=== PATIENT | female | born 1945 | race Caucasian/White ===

== ENCOUNTER 2016-07-03 11:57 | Inpatient (IN) | payer MEDICARE, OTHER ==
[2016-07-03] MEDS ORDERED: IPRATROPIUM-ALBUTEROL 3 ML NEB INHALATION STA (12:15)
[2016-07-03] MEDS ORDERED: methylPREDNISolone SOD SUCCI 125 MG/2 ML VIAL IV STA (12:15)
[2016-07-03] MEDS ORDERED: ACETAMINOPHEN TAB 500 MG TAB PO STA (12:16)
[2016-07-03] MEDS ORDERED: IBUPROFEN 600 MG TAB PO STA (12:16)
--- NOTE | 2016-07-03 12:19 | ED ---
General Adult HPI - General Chief complaint: Shortness of Breath Stated complaint: Asthma symptoms Time Seen by Provider: 07/03/16 12:00 Source: patient, RN notes reviewed Mode of arrival: wheelchair Limitations: no limitations - History of Present Illness Initial comments: This is a 71-year-old female who presents emergency Department complaining of difficulty breathing. Patient states she has a past medical history significant for asthma as well as sarcoidosis. Patient states she's been having difficulty breathing last few days. Patient states it got progressively worse. Patient denies any chest pain or palpitation. Patient denies abdominal pain patient denies nausea vomiting diarrhea. Patient denies headache patient denies numbness weakness. Patient denies any recent injury or trauma. Patient denies lightheadedness dizziness or near syncopal episode. Patient's main complaint is coughing and difficulty breathing. - Related Data Home Medications Medication Instructions Recorded Confirmed Metoprolol Succinate (ER) [Toprol 25 mg PO QAM 08/21/13 07/03/16 XL] Multivit with Calcium,Iron,Min 1 tab PO QAM 08/21/13 07/03/16 [Women's Daily Multivitamin] metFORMIN HCL [Glucophage] 1,000 mg PO AC-SUPPER 08/21/13 07/03/16 metFORMIN HCL [Glucophage] 500 mg PO AC-BRKFST 08/21/13 07/03/16 Vitamin B Complex 1 cap PO QAM 04/19/14 07/03/16 Insulin Aspart [NovoLOG] 18 unit SQ AC-SUPPER 04/18/15 07/03/16 Magnesium Gluconate [Magonate] 500 mg PO QAM 04/18/15 07/03/16 clonazePAM [KlonoPIN] 0.5 mg PO HS PRN 04/18/15 07/03/16 Amitriptyline HCl [Elavil] 50 mg PO HS 06/24/15 07/03/16 Aspirin 81 mg PO HS 06/24/15 07/03/16 Atorvastatin [Lipitor] 40 mg PO HS 06/24/15 07/03/16 Cholecalciferol [Vitamin D3] 2,000 unit PO QAM 06/24/15 07/03/16 Insulin Aspart [NovoLOG] 16 unit SQ AC-BRKFST 06/24/15 07/03/16 Insulin Aspart [NovoLOG] 18 unit SQ AC-LUNCH 06/24/15 07/03/16 Furosemide [Lasix] 20 mg PO BID@0800,1200 02/13/16 07/03/16 Insulin Aspart [NovoLOG] See Protocol SQ AC-TID 02/13/16 07/03/16 Insulin Glargine [Lantus] 47 unit SQ HS 02/13/16 07/03/16 Budesonide/Formoterol Fumarate 1 puff INHALATION RT-BID 03/06/16 07/03/16 [Symbicort 160-4.5 Mcg Inhaler] Ipratropium-Albuterol Nebulize 3 ml INHALATION RT-QID 04/03/16 07/03/16 [Duoneb 0.5 mg-3 mg/3 ml Soln] Pramipexole [Mirapex] 0.25 mg PO DAILY PRN 04/11/16 07/03/16 Gabapentin [Neurontin] 300 mg PO BID 07/03/16 07/03/16 Previous Rx's Medication Instructions Recorded Acetaminophen Tab [Tylenol] 500 mg PO Q6HR PRN #0 tab 02/18/16 Levofloxacin [Levaquin] 750 mg PO DAILY@1200 #7 tab 04/13/16 Allergies Allergy/AdvReac Type Severity Reaction Status Date / Time erythromycin base Allergy Unknown Rash/Hives Verified 07/03/16 12:20 [Erythromycin Base] metoclopramide HCl Allergy Unknown Rash/Hives Verified 07/03/16 12:20 [From Reglan] Sulfa (Sulfonamide Allergy Unknown Rash/Hives Verified 07/03/16 12:20 Antibiotics) Penicillins Allergy Unknown Verified 07/03/16 12:20 Review of Systems ROS Statement: Those systems with pertinent positive or pertinent negative responses have been documented in the HPI. ROS Other: All systems not noted in ROS Statement are negative. 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 Skin cancer. Last Myocardial Infarction Date:: unknown History of Any Multi-Drug Resistant Organisms: None Reported Past Surgical History: Back Surgery, Cholecystectomy, Heart Catheterization, Tubal Ligation Additional Past Surgical History / Comment(s): 05-05-15 BRONCHOSCOPY, cystoscopy 2000, laminectomy 1982,1999,2000,2002,2006, liver biopsy 2008, cataract surgery 2009, spinal fusion 2006, x2 disectomies,lithotripsy, liver bx 2008 had ercp /stent in liver, skin ca removed. 2013 implanted pain stimulator, jonah carpal tunnel, recent cough since Jan 2016, 04-05-16 BRONCHOSCOPY Past Anesthesia/Blood Transfusion Reactions: Motion Sickness Additional Past Anesthesia/Blood Transfusion Reaction / Comment(s): claustrophobia. NEVER HAD ANY BLOOD TRANSFUSIONS Past Psychological History: Anxiety, Depression Smoking Status: Never smoker Past Alcohol Use History: None Reported Past Drug Use History: None Reported - Past Family History Father History Unknown: Yes Additional Family Medical History / Comment(s): was adopted Mother History Unknown: Yes Family Medical History: Cancer Additional Family Medical History / Comment(s): breast General Exam - General Exam Comments Initial Comments: GENERAL: Patient is well-developed and well-nourished. Patient is nontoxic and well- hydrated and is in mild distress. ENT: Neck is soft and supple. No significant lymphadenopathy is noted. Oropharynx is clear. Moist mucous membranes. Neck has full range of motion without eliciting any pain. EYES: The sclera were anicteric and conjunctiva were pink and moist. Extraocular movements were intact and pupils were equal round and reactive to light. Eyelids were unremarkable. PULMONARY: Unlabored respirations. Good breath sounds bilaterally. Expiratory wheezing throughout CARDIOVASCULAR: There is a regular rate and rhythm without any murmurs gallops or rubs. ABDOMEN: Soft and nontender with normal bowel sounds. No palpable organomegaly was noted. There is no palpable pulsatile mass. SKIN: Skin is clear with no lesions or rashes and otherwise unremarkable. NEUROLOGIC: Patient is alert and oriented x3. Cranial nerves II through XII are grossly intact. Motor and sensory are also intact. Normal speech, volume and content. Symmetrical smile. MUSCULOSKELETAL: Normal extremities with adequate strength and full range of motion. No lower extremity swelling or edema. No calf tenderness. LYMPHATICS: No significant lymphadenopathy is noted PSYCHIATRIC: Normal psychiatric evaluation. Normal interpersonal interactions appears functionally intact in deals appropriately with others. No signs of depression. No signs of anxiety. Limitations: no limitations Course Vital Signs 07/03/16 07/03/16 07/03/16 12:02 12:16 12:22 Temperature 98.5 F 102.4 F H Pulse Rate 119 H 115 H Respiratory 28 H Rate Blood Pressure 169/63 O2 Sat by Pulse 93 L Oximetry 07/03/16 07/03/16 12:28 14:12 Temperature 99.9 F H Pulse Rate 116 H 108 H Respiratory 20 Rate Blood Pressure 102/58 O2 Sat by Pulse 95 Oximetry Medical Decision Making - Medical Decision Making EKG shows sinus tachycardia at 107 bpm MI interval 252 QRS is 90 QT interval 370 QTC is 493 per patient's EKG shows no ST segment elevation or depression or T-wave abnormalities are noted. Chest x-ray shows some diffuse patchiness. Patient states influenza came back positive. I started the patient on Tamiflu. Patient had a bad cough site gave her some Tessalon Perles. I went back into reevaluate the patient was neurologically were clear at this point patient looked considerably better than when she arrived. - Lab Data Result diagrams: 07/03/16 12:25 07/03/16 12:25 Lab Results 07/03/16 07/03/16 07/03/16 Range/Units 12:25 12:25 12:25 WBC 6.2 (3.8-10.6) k/uL RBC 4.57 (3.80-5.40) m/uL Hgb 13.7 (11.4-16.0) gm/dL Hct 41.8 (34.0-46.0) % MCV 91.3 (80.0-100.0) fL MCH 29.9 (25.0-35.0) pg MCHC 32.8 (31.0-37.0) g/dL RDW 14.7 (11.5-15.5) % Plt Count 92 L (150-450) k/uL Neutrophils % 84 % Lymphocytes % 7 % Monocytes % 6 % Eosinophils % 1 % Basophils % 0 % Neutrophils # 5.2 (1.3-7.7) k/uL Lymphocytes # 0.4 L (1.0-4.8) k/uL Monocytes # 0.3 (0-1.0) k/uL Eosinophils # 0.1 (0-0.7) k/uL Basophils # 0.0 (0-0.2) k/uL Manual Slide Review Performed Toxic Granulation Present PT (9.0-12.0) sec INR (<1.1) APTT (22.0-30.0) sec Sodium 136 L (137-145) mmol/L Potassium 4.3 (3.5-5.1) mmol/L Chloride 104 (98-107) mmol/L Carbon Dioxide 23 (22-30) mmol/L Anion Gap 9 mmol/L BUN 16 (7-17) mg/dL Creatinine 0.63 (0.52-1.04) mg/dL Est GFR (MDRD) Af Amer >60 (>60 ml/min/1.73 sqM) Est GFR (MDRD) Non-Af >60 (>60 ml/min/1.73 sqM) Glucose 213 H (74-99) mg/dL Calcium 8.8 (8.4-10.2) mg/dL Total Bilirubin 1.7 H (0.2-1.3) mg/dL AST 72 H (14-36) U/L ALT 51 (9-52) U/L Alkaline Phosphatase 87 (38-126) U/L Total Creatine Kinase 832 H (30-135) U/L CK-MB (CK-2) 3.2 H* (0.0-2.4) ng/mL CK-MB (CK-2) Rel Index 0.4 Troponin I <0.012 (0.000-0.034) ng/mL NT-Pro-B Natriuret Pep pg/mL Total Protein 6.4 (6.3-8.2) g/dL Albumin 3.5 (3.5-5.0) g/dL Influenza Type A RNA (Not Detectd) Influenza Type B (PCR) (Not Detectd) 07/03/16 07/03/16 07/03/16 Range/Units 12:25 12:25 12:33 WBC (3.8-10.6) k/uL RBC (3.80-5.40) m/uL Hgb (11.4-16.0) gm/dL Hct (34.0-46.0) % MCV (80.0-100.0) fL MCH (25.0-35.0) pg MCHC (31.0-37.0) g/dL RDW (11.5-15.5) % Plt Count (150-450) k/uL Neutrophils % % Lymphocytes % % Monocytes % % Eosinophils % % Basophils % % Neutrophils # (1.3-7.7) k/uL Lymphocytes # (1.0-4.8) k/uL Monocytes # (0-1.0) k/uL Eosinophils # (0-0.7) k/uL Basophils # (0-0.2) k/uL Manual Slide Review Toxic Granulation PT 12.2 H (9.0-12.0) sec INR 1.2 (<1.1) APTT 23.9 (22.0-30.0) sec Sodium (137-145) mmol/L Potassium (3.5-5.1) mmol/L Chloride (98-107) mmol/L Carbon Dioxide (22-30) mmol/L Anion Gap mmol/L BUN (7-17) mg/dL Creatinine (0.52-1.04) mg/dL Est GFR (MDRD) Af Amer (>60 ml/min/1.73 sqM) Est GFR (MDRD) Non-Af (>60 ml/min/1.73 sqM) Glucose (74-99) mg/dL Calcium (8.4-10.2) mg/dL Total Bilirubin (0.2-1.3) mg/dL AST (14-36) U/L ALT (9-52) U/L Alkaline Phosphatase (38-126) U/L Total Creatine Kinase (30-135) U/L CK-MB (CK-2) (0.0-2.4) ng/mL CK-MB (CK-2) Rel Index Troponin I (0.000-0.034) ng/mL NT-Pro-B Natriuret Pep 236 pg/mL Total Protein (6.3-8.2) g/dL Albumin (3.5-5.0) g/dL Influenza Type A RNA Detected H (Not Detectd) Influenza Type B (PCR) Not Detected (Not Detectd) Disposition Clinical Impression: Influenza, Bronchospasm Disposition: ADMITTED IP TO THIS [facility] Time of Disposition: 14:17
[2016-07-03 12:54] LABS: ALT 51 U/L (9-52); AST 72 U/L (14-36); Alkaline Phosphatase 87 U/L (38-126); Anion Gap 9 mmol/L; Blood Urea Nitrogen 16 mg/dL (7-17); Calcium 8.8 mg/dL (8.4-10.2); Carbon Dioxide 23 mmol/L (22-30); Chloride 104 mmol/L (98-107); Glucose 213 mg/dL (74-99); Non-African American GFR(MDRD) >60 (>60 ml/min/1.73 sqM); Potassium 4.3 mmol/L (3.5-5.1); Sodium 136 mmol/L (137-145); Total Bilirubin 1.7 mg/dL (0.2-1.3); Total Protein 6.4 g/dL (6.3-8.2)
--- NOTE | 2016-07-03 12:57 | XR ---
EXAMINATION TYPE: XR chest 2V DATE OF EXAM: 07/03/2016 12:51 PM COMPARISON: 04/11/2016 INDICATION: Difficulty breathing SD of asthma and COPD TECHNIQUE: Single frontal view of the chest is obtained. FINDINGS: The heart size is borderline in size. The pulmonary vasculature is prominent. There is diffuse increased lung markings. Early pulmonary edema should be considered. Exam is limited due to patient body habitus. IMPRESSION: 1. Clinical correlation recommended for early volume overload or pulmonary edema. Follow-up exams can be performed as clinically indicated.
[2016-07-03 13:01] LABS: Basophils % (A) 0 %; CH 30.5; CHCM 33.4; Creatine Kinase 832 U/L (30-135); Eosinophils # (A) 0.1 k/uL (0-0.7); Eosinophils % (A) 1 %; HCT 41.8 % (34.0-46.0); HDW 2.64; HGB 13.7 gm/dL (11.4-16.0); Luc # (Auto) 0.17; Luc % (Auto) 3; Lymphocytes # (A) 0.4 k/uL (1.0-4.8); Lymphocytes % (A) 7 %; MCH 29.9 pg (25.0-35.0); MCHC 32.8 g/dL (31.0-37.0); MCV 91.3 fL (80.0-100.0); Mean Platelet Volume 6.7; Monocytes # (A) 0.3 k/uL (0-1.0); Monocytes % (A) 6 %; Neutrophils # (A) 5.2 k/uL (1.3-7.7); Neutrophils % (A) 84 %; RBC 4.57 m/uL (3.80-5.40); RDW 14.7 % (11.5-15.5); WBC 6.2 k/uL (3.8-10.6); WBC (Perox) 6.41
[2016-07-03 13:02] LABS: INR 1.2 (<1.1); Partial Thromboplastin Time 23.9 sec (22.0-30.0); Prothrombin Time 12.2 sec (9.0-12.0)
[2016-07-03 13:14] LABS: Troponin I <0.012 ng/mL (0.000-0.034)
[2016-07-03 13:20] LABS: Creatine Kinase MB 3.2 ng/mL (0.0-2.4)
[2016-07-03 14:01] LABS: Manual Review Performed; Toxic Granulation Present
[2016-07-03] MEDS ORDERED: BENZONATATE 100 MG CAP PO STA (14:16)
[2016-07-03] MEDS ORDERED: OSELTAMIVIR 75 MG CAP PO STA (14:16)
[2016-07-03] MEDS ORDERED: IPRATROPIUM-ALBUTEROL 3 ML NEB INHALATION PRN (14:18)
[2016-07-03] MEDS ORDERED: ACETAMINOPHEN TAB 325 MG TAB PO PRN (14:20)
[2016-07-03] MEDS ORDERED: clonazePAM 0.5 MG TAB PO PRN (16:56)
[2016-07-03] MEDS ORDERED: PRAMIPEXOLE 0.25 MG TAB PO PRN (16:56)
[2016-07-03] MEDS ORDERED: ACETAMINOPHEN TAB 500 MG TAB PO PRN (16:56)
[2016-07-03 17:09] LABS: Glucose,Whole Blood 260 mg/dL (75-99)
[2016-07-03] MEDS: INSULIN LISPRO (humaLOG) 300 UNIT/3 ML VIAL SQ SCH (17:47)
[2016-07-03] MEDS: metFORMIN 500 MG TAB PO SCH (17:47)
[2016-07-03] MEDS: methylPREDNISolone SOD SUCCI 125 MG/2 ML VIAL IV SCH ×2 (17:50→23:34)
[2016-07-03] MEDS: IPRATROPIUM-ALBUTEROL 3 ML NEB INHALATION SCH (19:31)
[2016-07-03] MEDS: SYMBICORT 160-4.5 MCG INHALER INHALATION SCH (19:34)
[2016-07-03 21:08] LABS: Glucose,Whole Blood 383 mg/dL (75-99)
[2016-07-03] MEDS: INSULIN GLARGINE 100 UNIT/ML 10 ML VIAL SQ SCH (21:32)
[2016-07-03] MEDS: GABAPENTIN 300 MG CAP PO SCH (21:33)
[2016-07-03] MEDS: AMITRIPTYLINE HCL 50 MG TAB PO SCH (21:33)
[2016-07-03] MEDS: ASPIRIN 81 MG CHEW PO SCH (21:33)
[2016-07-03] MEDS: ATORVASTATIN 40 MG TAB PO SCH (21:33)
[2016-07-03] MEDS: BENZONATATE 100 MG CAP PO SCH (21:34)
[2016-07-04] MEDS: OSELTAMIVIR 75 MG CAP PO SCH ×2 (06:06→17:36)
[2016-07-04] MEDS: methylPREDNISolone SOD SUCCI 125 MG/2 ML VIAL IV SCH ×2 (06:06→11:17)
[2016-07-04] MEDS: IPRATROPIUM-ALBUTEROL 3 ML NEB INHALATION SCH ×4 (07:26→20:52)
[2016-07-04] MEDS: SYMBICORT 160-4.5 MCG INHALER INHALATION SCH ×2 (07:26→20:52)
[2016-07-04 07:33] LABS: Glucose,Whole Blood 338 mg/dL (75-99)
[2016-07-04] MEDS: METOPROLOL SUCCINATE (ER) 25 MG TAB.ER.24H PO SCH (07:47)
[2016-07-04] MEDS: GABAPENTIN 300 MG CAP PO SCH ×2 (07:48→20:43)
[2016-07-04] MEDS: FUROSEMIDE 20 MG TAB PO SCH ×2 (07:48→11:17)
[2016-07-04] MEDS: MAGNESIUM OXIDE 400 MG TAB PO SCH (07:48)
[2016-07-04] MEDS: BENZONATATE 100 MG CAP PO SCH ×3 (07:48→21:37)
[2016-07-04] MEDS: metFORMIN 500 MG TAB PO SCH ×2 (07:48→17:35)
[2016-07-04] MEDS: INSULIN LISPRO (humaLOG) 300 UNIT/3 ML VIAL SQ SCH ×7 (07:49→21:37)
[2016-07-04] MEDS: B COMPLEX-VIT C-VIT E-ZINC 1 EACH TAB PO SCH (11:16)
[2016-07-04] MEDS: MULTIVITAMINS, THERA 1 EACH TAB PO SCH (11:16)
[2016-07-04] MEDS: CHOLECALCIFEROL 1,000 UNIT TAB PO SCH (11:16)
[2016-07-04] MEDS ORDERED: LEVOFLOXACIN 750 MG TAB PO SCH (12:00)
[2016-07-04 12:15] LABS: Hemoglobin A1C 8.1 % (4.2-6.1)
[2016-07-04 12:23] LABS: Glucose,Whole Blood 443 mg/dL (75-99)
[2016-07-04] MEDS: ENOXAPARIN 40 MG/0.4 ML SYRINGE SQ SCH (12:25)
--- NOTE | 2016-07-04 12:50 | HP ---
DATE OF ADMISSION: 07/03/2016 PRESENTING COMPLAINT: Cough. HISTORY OF PRESENTING COMPLAINT: This is a pleasant 71-year-old patient of Dr. Abel with rather extensive medical history. Patient was last here in the hospital in March last year and patient's chronic stable medical conditions include moderate aortic stenosis, diabetes mellitus type 2, GERD, hyperlipidemia, hypertension, osteoarthritis, hypothyroidism, also has got tracheobronchomalacia, sarcoidosis, restless leg syndrome, and also got diastolic dysfunction. The patient saw Dr. Bernstein recently for respiratory type symptoms including cough, short of breath. Given a course of antibiotics, steroids and completed. ( ). Bouts of coughing, no phlegm, shortness of breath. Did spike a fever of 102.4. Not feeling well, tired, rundown, some wheezing. Came in. Patient came back positive for influenza A, started on Tamiflu, admitted for the same. REVIEW OF SYSTEMS: CONSTITUTIONAL: Tired. HEENT: None. RESPIRATORY: As above. CARDIOVASCULAR: None, some edema. GASTROINTESTINAL: None. GENITOURINARY: None. MUSCULOSKELETAL: Aches and pains in the joints. DERMATOLOGIC: None. HEMATOLOGIC: None. LYMPHATIC: None. PSYCHIATRY: None. NEUROLOGICAL: None. 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 PAST SURGICAL HISTORY: Back surgery, cholecystectomy, cardiac catheterization, several bronchoscopies, laminectomy, liver biopsy, also had ERCP with stent to liver, skin cancer removed, bilateral carpal tunnel done x2, heel spurs. PSYCH HISTORY: Anxiety, depression. Patient is . actually admitted to the hospital under Dr. Avendano. No smoking, no alcohol. Family history of breast cancer. HOME MEDICATIONS: 1. Toprol XL 25 mg daily. 2. NovoLog 16 units with breakfast, 18 with lunch, 18 with supper. 3. Klonopin 0.5 mg p.o. q.h.s. p.r.n. 4. Glucophage 500 mg with breakfast, 1000 mg at supper. 5. Vitamin B complex 1 capsule p.o. daily. 6. Mirapex 0.25 mg p.o. daily p.r.n. 7. Woman's multivitamin 1 tablet p.o. daily. 8. Magnesium 500 mg p.o. daily. 9. Levaquin 750 mg p.o. daily. 10. DuoNeb q.i.d. 11. Lantus 47 units subcu q.h.s. 12. Neurontin 300 mg b.i.d. 13. Lasix 20 mg b.i.d. 14. Vitamin D3, 2000 units p.o. daily. 15. Symbicort 160/4.5 one puff b.i.d. 16. Lipitor 40 mg q.h.s. 17. Aspirin 81 mg q.h.s. 18. Elavil 50 mg q.h.s. Allergies to ERYTHROMYCIN REGLAN, SULFA, PENICILLIN. ON EXAMINATION: VITAL SIGNS ON PRESENTATION: Temperature 102.4, pulse 115, respiration 28, blood pressure 169/63, pulse ox 93% on room air. GENERAL APPEARANCE: Obese; BMI 42.4. Sitting up, tired appearing. EYES: Pupils equal. Conjunctivae normal. HEENT: External appearance of nose and ears normal. Oral cavity normal. NECK: JVD not raised. Mass not palpable. RESPIRATORY: Effort normal. LUNGS: Some expiratory wheezing. CARDIOVASCULAR: First and second sounds normal. No edema. ABDOMEN: Soft, nontender. Liver and spleen not palpable. LYMPHATIC: No lymph nodes palpable in the neck or axillae. PSYCHIATRY: Alert and oriented x3. Mood and affect normal. NEUROLOGICAL: Pupils equal. Cranial nerves grossly intact. Power and sensation grossly intact. MUSCULOSKELETAL: Evidence of osteoarthritis of multiple joints. INVESTIGATIONS: White count 6.2, hemoglobin 13.7, platelets 92. Potassium 4.3. BUN and creatinine normal. Accu-Cheks are noted. Influenza type A RNA is positive. Chest x-ray under exposed, some infiltrates in the bases. ASSESSMENT: 1. Acute influenza A type A pneumonitis, bilateral. 2. Moderate aortic stenosis, nonrheumatic. 3. Acute exacerbation of moderate persistent asthma. 4. Diabetes mellitus type 2, chronically on insulin. 5. Gastroesophageal reflux disease. 6. Hyperlipidemia. 7. Essential hypertension. 8. Primary osteoarthritis of multiple joints. 9. Morbid obesity. Body mass index more than 40. 10. Hypothyroidism. 11. Sarcoidosis. 12. Chronic tracheobronchomalacia. 13. Possible Sjogren syndrome. 14. Nephrolithiasis. 15. Restless leg syndrome 16. Chronic inflammatory demyelinating polyneuropathy, history of. 17. Nonalcoholic steatohepatitis. 18. Colonic diverticulosis. PLAN: Patient's home medications are resumed. Patient was put on IV Solu-Medrol, Tamiflu, nebulized bronchodilators. Care was discussed with the patient. Will give Lovenox for DVT prophylaxis. Patient likely will need 2 days of inpatient hospital stay. Given the steroids, Accu-Cheks will be closely followed.
--- NOTE | 2016-07-04 16:16 | P.CNPUL ---
History of Present Illness Consult date: 07/04/16 Reason for consult: cough History of present illness: 71-year-old female patient who presented to the emergency department yesterday because of increased cough and shortness of breath. The patient started having symptoms approximately 3 days ago. In fact her has been admitted for an acute COPD exacerbation and acute influenza tracheobronchitis. The patient started having increased cough and chest congestion for which she had contacted Dr. Bernstein and she was given a course of antibiotics which she thinks was amoxicillin and a prednisone taper. Nevertheless the condition did not improve and she came into the emergency department and she was admitted for increased cough and chest congestion and ongoing respiratory complaints. She did spike a fever of 102.4. The hospital. She was feeling tired and rundown. No nausea. No vomiting. No change in mental status. Influenza A screen was positive and the patient was started on Tamiflu. She was also started accommodation bronchodilators and systemic steroids. She is already feeling better and she is much improved. She developed steroid-induced hyperglycemia based on that I took her off the IV Solu-Medrol and started on a prednisone burst taper. She is afebrile for now. She has regained her energy back. She has no specific complaints. 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, non alcoholic steatohepatitis, nephrolithiasis, osteoporosis,sciatica, restless leg syndrome, anemia, hx of TIA 2, thyroid nodule, diverticulosis, skin cancer, "double vison with distance for past 6 months pt has been evaluated by ophthalmology, tracheobronchomalacia, diabetes mellitus type 2, hypertension, hyperlipidemia, hypothyroidism, restless leg syndrome, CHF with diastolic dysfunction, moderate degree of aortic stenosis Last Myocardial Infarction Date:: unknown History of Any Multi-Drug Resistant Organisms: None Reported Past Surgical History: Back Surgery, Cholecystectomy, Heart Catheterization, Tubal Ligation Additional Past Surgical History / Comment(s): several bronchoscopies, cystoscopy 2000, laminectomy 1982,1999,2000,2002,2006 but total of 13 back sx including implanted pain stimulator, liver biopsy 2008, cataract surgery 2009, lithotripsy, liver bx 2008 had ercp /stent in liver, skin ca removed. jonah carpal tunnel done x2,heel spurs rt heel . thyroid bx(nodule) Past Anesthesia/Blood Transfusion Reactions: Motion Sickness Additional Past Anesthesia/Blood Transfusion Reaction / Comment(s): claustrophobia. NEVER HAD ANY BLOOD TRANSFUSIONS Past Psychological History: Anxiety, Depression Additional Psychological History / Comment(s): pt lives with and 1 dog in one level home 2 steps into home. has cane/walker, shower chair, nebulizer at home. currently no outside services. Smoking Status: Never smoker Past Alcohol Use History: None Reported Past Drug Use History: None Reported - Past Family History Father History Unknown: Yes Additional Family Medical History / Comment(s): was adopted Mother History Unknown: Yes Family Medical History: Cancer Additional Family Medical History / Comment(s): breast Medications and Allergies Home Medications Medication Instructions Recorded Confirmed Type Metoprolol Succinate (ER) [Toprol 25 mg PO QAM 08/21/13 07/03/16 History XL] Multivit with Calcium,Iron,Min 1 tab PO QAM 08/21/13 07/03/16 History [Women's Daily Multivitamin] metFORMIN HCL [Glucophage] 1,000 mg PO AC-SUPPER 08/21/13 07/03/16 History metFORMIN HCL [Glucophage] 500 mg PO AC-BRKFST 08/21/13 07/03/16 History Vitamin B Complex 1 cap PO QAM 04/19/14 07/03/16 History Insulin Aspart [NovoLOG] 18 unit SQ AC-SUPPER 04/18/15 07/03/16 History Magnesium Gluconate [Magonate] 500 mg PO QAM 04/18/15 07/03/16 History clonazePAM [KlonoPIN] 0.5 mg PO HS PRN 04/18/15 07/03/16 History Amitriptyline HCl [Elavil] 50 mg PO HS 06/24/15 07/03/16 History Aspirin 81 mg PO HS 06/24/15 07/03/16 History Atorvastatin [Lipitor] 40 mg PO HS 06/24/15 07/03/16 History Cholecalciferol [Vitamin D3] 2,000 unit PO QAM 06/24/15 07/03/16 History Insulin Aspart [NovoLOG] 16 unit SQ AC-BRKFST 06/24/15 07/03/16 History Insulin Aspart [NovoLOG] 18 unit SQ AC-LUNCH 06/24/15 07/03/16 History Furosemide [Lasix] 20 mg PO BID@0800,1200 02/13/16 07/03/16 History Insulin Aspart [NovoLOG] See Protocol SQ AC-TID 02/13/16 07/03/16 History Insulin Glargine [Lantus] 47 unit SQ HS 02/13/16 07/03/16 History Budesonide/Formoterol Fumarate 1 puff INHALATION RT-BID 03/06/16 07/03/16 History [Symbicort 160-4.5 Mcg Inhaler] Ipratropium-Albuterol Nebulize 3 ml INHALATION RT-QID 04/03/16 07/03/16 History [Duoneb 0.5 mg-3 mg/3 ml Soln] Pramipexole [Mirapex] 0.25 mg PO DAILY PRN 04/11/16 07/03/16 History Gabapentin [Neurontin] 300 mg PO BID 07/03/16 07/03/16 History Allergies Allergy/AdvReac Type Severity Reaction Status Date / Time erythromycin base Allergy Unknown Rash/Hives Verified 07/03/16 12:20 [Erythromycin Base] metoclopramide HCl Allergy Unknown Rash/Hives Verified 07/03/16 12:20 [From Reglan] Sulfa (Sulfonamide Allergy Unknown Rash/Hives Verified 07/03/16 12:20 Antibiotics) Penicillins Allergy Unknown Verified 07/03/16 12:20 Physical Exam Vitals: Vital Signs Temp Pulse Pulse Resp BP Pulse Ox 07/04/16 15:56 102 H 07/04/16 15:44 100 07/04/16 15:00 97.7 F 102 H 18 106/73 94 L 07/04/16 11:28 104 H 07/04/16 11:17 100 07/04/16 07:37 104 H 07/04/16 07:26 100 07/04/16 07:00 97 F L 101 H 18 127/69 97 07/03/16 23:00 97.4 F L 65 16 126/67 97 07/03/16 19:44 104 H 07/03/16 19:34 104 H 07/03/16 17:00 104 H 18 Intake and Output 07/04/16 07/04/16 07/04/16 06:59 14:59 22:59 Other: Voiding Method Toilet Toilet # Voids 1 3 Head exam was generally normal. There was no scleral icterus or corneal arcus. Mucous membranes were moist.Neck was supple and without jugular venous distension, thyromegaly, or carotid bruits. Carotids were easily palpable bilaterally. There was no adenopathy. Lung sounds are diminished bilaterally along with some few scattered expiratory wheeze.Cardiac exam revealed the PMI to be normally situated and sized. The rhythm was regular and no extrasystoles were noted during several minutes of auscultation. The first and second heart sounds were normal and physiologic splitting of the second heart sound was noted. There were no murmurs, rubs, clicks, or gallops. Abdomen is obese soft nontender and the organs cannot be accurately palpated.Examination of the extremities revealed easily palpable radial, femoral and pedal pulses. There was no cyanosis, clubbing or edema. Results - Laboratory Findings CBC and BMP: 07/03/16 12:25 07/03/16 12:25 PT/INR, D-dimer PT 12.2 sec (9.0-12.0) H 07/03/16 12:25 INR 1.2 (<1.1) 07/03/16 12:25 Abnormal lab findings: Abnormal Labs 07/03/16 07/03/16 07/04/16 17:07 20:57 07:31 POC Glucose (mg/dL) 260 H 383 H 338 H 07/04/16 12:21 POC Glucose (mg/dL) 443 H - Diagnostic Findings Chest x-ray: image reviewed Assessment and Plan Plan: Assessment 1 acute influenza tracheal bronchitis with secondary cough and shortness of breath, improving 2 moderate persistent bronchial asthma 3 moderate degree of aortic stenosis, nondramatic 4 diabetes mellitus type 2 maintained on insulin for blood sugar control 5 tracheobronchomalacia 6 obesity 7 hypertension 8 hyperlipidemia 9 hypothyroidism 10 history of sarcoidosis 11 history of Sjogren's disease 12 restless leg syndrome 13 nephrolithiasis Plan Continue Tamiflu. Continue the bronchodilators. Stopped IV Solu-Medrol and put the patient prednisone burst taper. A similar discharge in the next 24 hours. Keep the patient meanwhile and droplet isolation. Outpatient medication will be ordered resume. The patient is receiving Tessalon Perles for cough. Monitor the blood sugars. Sliding scale insulin for blood sugar control. We should be able to avoid insulin drip as the patient will be taken off IV Solu Medrol.
[2016-07-04] MEDS ORDERED: methylPREDNISolone SOD SUCCI 40 MG/ML 1 ML VIAL IV SCH (17:00)
[2016-07-04 17:04] LABS: Glucose,Whole Blood 491 mg/dL (75-99)
[2016-07-04] MEDS ORDERED: INSULIN LISPRO (humaLOG) 300 UNIT/3 ML VIAL SQ ONE (17:17)
[2016-07-04] MEDS: ATORVASTATIN 40 MG TAB PO SCH (20:43)
[2016-07-04] MEDS: ASPIRIN 81 MG CHEW PO SCH (20:43)
[2016-07-04] MEDS: AMITRIPTYLINE HCL 50 MG TAB PO SCH (20:43)
[2016-07-04 21:31] LABS: Glucose,Whole Blood 329 mg/dL (75-99)
[2016-07-04] MEDS: INSULIN GLARGINE 100 UNIT/ML 10 ML VIAL SQ SCH (21:37)
[2016-07-05] MEDS: OSELTAMIVIR 75 MG CAP PO SCH ×2 (06:20→17:27)
[2016-07-05 07:42] LABS: Glucose,Whole Blood 211 mg/dL (75-99)
[2016-07-05 07:48] VITALS: TEMP 97
[2016-07-05] MEDS: INSULIN LISPRO (humaLOG) 300 UNIT/3 ML VIAL SQ SCH ×6 (07:56→17:27)
[2016-07-05] MEDS: ENOXAPARIN 40 MG/0.4 ML SYRINGE SQ SCH (07:58)
[2016-07-05] MEDS: BENZONATATE 100 MG CAP PO SCH ×2 (07:58→15:07)
[2016-07-05] MEDS: GABAPENTIN 300 MG CAP PO SCH (07:58)
[2016-07-05] MEDS: FUROSEMIDE 20 MG TAB PO SCH ×2 (07:58→12:27)
[2016-07-05] MEDS: metFORMIN 500 MG TAB PO SCH ×2 (07:59→17:27)
[2016-07-05] MEDS: MAGNESIUM OXIDE 400 MG TAB PO SCH (07:59)
[2016-07-05] MEDS: METOPROLOL SUCCINATE (ER) 25 MG TAB.ER.24H PO SCH (08:00)
[2016-07-05] MEDS: SYMBICORT 160-4.5 MCG INHALER INHALATION SCH (08:22)
[2016-07-05] MEDS: IPRATROPIUM-ALBUTEROL 3 ML NEB INHALATION SCH ×3 (08:22→15:44)
[2016-07-05] MEDS ORDERED: predniSONE 10 MG TAB PO SCH (09:00)
[2016-07-05 11:56] LABS: Glucose,Whole Blood 285 mg/dL (75-99)
[2016-07-05] MEDS: MULTIVITAMINS, THERA 1 EACH TAB PO SCH (12:27)
[2016-07-05] MEDS: B COMPLEX-VIT C-VIT E-ZINC 1 EACH TAB PO SCH (12:27)
[2016-07-05] MEDS: CHOLECALCIFEROL 1,000 UNIT TAB PO SCH (12:27)
[2016-07-05 13:44] VITALS: PULSE 102
[2016-07-05 15:28] VITALS: BP 124/56; RESP 20
--- NOTE | 2016-07-05 15:33 | P.PN ---
Subjective Principal diagnosis: COPD exacerbation 71-year-old female patient who presented to the emergency department yesterday because of increased cough and shortness of breath. The patient started having symptoms approximately 3 days ago. In fact her has been admitted for an acute COPD exacerbation and acute influenza tracheobronchitis. The patient started having increased cough and chest congestion for which she had contacted Dr. Bernstein and she was given a course of antibiotics which she thinks was amoxicillin and a prednisone taper. Nevertheless the condition did not improve and she came into the emergency department and she was admitted for increased cough and chest congestion and ongoing respiratory complaints. She did spike a fever of 102.4. The hospital. She was feeling tired and rundown. No nausea. No vomiting. No change in mental status. Influenza A screen was positive and the patient was started on Tamiflu. She was also started accommodation bronchodilators and systemic steroids. She is already feeling better and she is much improved. She developed steroid-induced hyperglycemia based on that I took her off the IV Solu-Medrol and started on a prednisone burst taper. She is afebrile for now. She has regained her energy back. She has no specific complaints. The patient was seen again today 07/05/2016 in follow-up on the regular medical floor. She is awake and alert in no acute distress. She is better today as compared to yesterday. She does have some end expiratory wheezing and dyspnea with exertion but nearly back to her baseline. She is anxious to go home. Objective - Vital Signs Vital signs: Vital Signs Temp 97.0 F L 07/05/16 15:00 Pulse 102 H 07/05/16 15:00 Resp 20 07/05/16 15:00 BP 124/56 07/05/16 15:00 Pulse Ox 97 07/05/16 15:00 Intake & Output 07/04/16 07/05/16 07/05/16 18:59 06:59 18:59 Intake Total 300 Balance 300 Intake: Oral 300 Other: Voiding Method Toilet Toilet # Voids 5 2 3 - Exam Head exam was generally normal. There was no scleral icterus or corneal arcus. Mucous membranes were moist.Neck was supple and without jugular venous distension, thyromegaly, or carotid bruits. Carotids were easily palpable bilaterally. There was no adenopathy. Lung sounds are diminished bilaterally along with some few scattered expiratory wheeze.Cardiac exam revealed the PMI to be normally situated and sized. The rhythm was regular and no extrasystoles were noted during several minutes of auscultation. The first and second heart sounds were normal and physiologic splitting of the second heart sound was noted. There were no murmurs, rubs, clicks, or gallops. Abdomen is obese soft nontender and the organs cannot be accurately palpated.Examination of the extremities revealed easily palpable radial, femoral and pedal pulses. There was no cyanosis, clubbing or edema. - Labs CBC & Chem 7: 07/03/16 12:25 07/03/16 12:25 Labs: Abnormal Lab Results - Last 24 Hours (Table) 07/04/16 07/04/16 07/05/16 Range/Units 17:02 21:21 07:38 POC Glucose (mg/dL) 491 H 329 H 211 H (75-99) mg/dL 07/05/16 Range/Units 11:52 POC Glucose (mg/dL) 285 H (75-99) mg/dL Assessment and Plan Plan: Assessment 1 acute influenza tracheal bronchitis with secondary cough and shortness of breath, improving 2 moderate persistent bronchial asthma 3 moderate degree of aortic stenosis, nondramatic 4 diabetes mellitus type 2 maintained on insulin for blood sugar control 5 tracheobronchomalacia 6 obesity 7 hypertension 8 hyperlipidemia 9 hypothyroidism 10 history of sarcoidosis 11 history of Sjogren's disease 12 restless leg syndrome 13 nephrolithiasis Plan The patient was seen again and evaluated by Dr. Ramirez. She is stable from the pulmonary standpoint and could be discharged home. She'll continue on a prednisone taper. Continue Tamiflu to complete. Continue empiric antibiotics. She'll be seen in our office in 1 week's time. We'll repeat a chest x-ray then. She is encouraged however to call sooner with any recurrence of symptoms or any other questions or concerns.
[2016-07-05 17:17] LABS: Glucose,Whole Blood 219 mg/dL (75-99)
--- NOTE | 2016-07-07 13:44 | DS ---
DATE OF ADMISSION: 07/03/2016 DATE OF DISCHARGE: 07/05/2016 FINAL DIAGNOSES: 1. Acute influenza A, type A pneumonitis, bilateral, present on admission. 2. Moderate aortic stenosis, nonrheumatic. 3. Acute exacerbation of moderate persistent asthma, present at admission. 4. Diabetes mellitus type 2, chronically on insulin. 5. Gastroesophageal reflux disease. 6. Hyperlipidemia. 7. Essential hypertension. 8. Primary osteoarthritis of multiple joints, bilateral. 9. Moderate obesity, body mass index of more than 40. 10. Hypothyroidism. 11. Sarcoidosis. 12. Chronic tracheobronchomalacia. 13. Possible Sj?gren's syndrome. 14. Nephrolithiasis. 15. Restless leg syndrome. 16. Chronic inflammatory demyelinating polyneuropathy, history of. 17. Nonalcoholic steatohepatitis. 18. Colonic diverticulosis. HOSPITAL COURSE: This patient presented with severe bouts of coughing after being treated as an outpatient and worsening, found to have acute influenza A, put on Tamiflu, steroids and antibiotics to which she responded really well, doing much better the time of discharge. CONSULTATION: Dr. Ramirez. On exam, LUNGS: Improved air entry. CARDIOVASCULAR: First and second seconds normal. Alert and oriented x3. Patient's blood cultures were negative. DISCHARGE MEDICATIONS: 1. Toprol-XL 25 mg a day. 2. Woman's daily multivitamin 1 tablet p.o. daily. 3. Glucophage 1000 mg at supper, 500 mg with breakfast. 4. Vitamin B complex 1 capsule p.o. daily. 5. NovoLog 18 units subcu a.c. supper. 6. Magnesium 500 mg p.o. daily. 7. Klonopin 0.5 mg p.o. q.h.s. p.r.n. 8. Elavil 50 mg p.o. q.h.s. 9. Aspirin 81 mg p.o. q.h.s. 10. Lipitor 40 mg p.o. q.h.s. 11. Vitamin D3, 2000 units ( ) in the morning. 12. NovoLog 16 units with breakfast, 18 units at lunch. 13. Lasix 20 mg b.i.d. 14. Lantus 47 units subcu q.h.s. 15. Tylenol 5 mg every 6 hours p.r.n. 16. Symbicort 160/4.5, 1 puff b.i.d. 17. DuoNeb q.i.d. 18. Mirapex 0.25 mg p.o. daily p.r.n. 19. Neurontin 300 mg p.o. b.i.d. 20. Tamiflu 75 mg q.12, 6 capsules. 21. Prednisone taper. 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 Follow up with Dr. Abel in 3 days. Discharge planning more than 35 minutes.
== END 2016-07-05 18:11 | disposition home or self-care (01) | DRG 194 ==
LOC: EC 11:57 → 4MS4W 14:18
PROVIDERS: ADMIT Hospitalist; ATTEND Hospitalist
DX: J10.00 Influenza due to other identified influenza virus with unspecified type of pneumonia (principal); J45.41 Moderate persistent asthma with (acute) exacerbation; G37.3 Acute transverse myelitis in demyelinating disease of central nervous system; J44.0 Chronic obstructive pulmonary disease with (acute) lower respiratory infection; E11.65 Type 2 diabetes mellitus with hyperglycemia; I11.0 Hypertensive heart disease with heart failure; I50.32 Chronic diastolic (congestive) heart failure; G61.81 Chronic inflammatory demyelinating polyneuritis; J44.1 Chronic obstructive pulmonary disease with (acute) exacerbation; Z68.41 Body mass index [BMI] 40.0-44.9, adult; M35.00 Sjogren syndrome, unspecified; E66.01 Morbid (severe) obesity due to excess calories; J39.8 Other specified diseases of upper respiratory tract; K75.81 Nonalcoholic steatohepatitis (NASH); I35.0 Nonrheumatic aortic (valve) stenosis; K21.9 Gastro-esophageal reflux disease without esophagitis; E03.9 Hypothyroidism, unspecified; E78.5 Hyperlipidemia, unspecified; M19.91 Primary osteoarthritis, unspecified site; D86.9 Sarcoidosis, unspecified; G25.81 Restless legs syndrome; I25.10 Atherosclerotic heart disease of native coronary artery without angina pectoris; F40.240 Claustrophobia; K57.90 Diverticulosis of intestine, part unspecified, without perforation or abscess without bleeding; I25.2 Old myocardial infarction; E04.1 Nontoxic single thyroid nodule; F32.9 Major depressive disorder, single episode, unspecified; K57.30 Diverticulosis of large intestine without perforation or abscess without bleeding; M81.0 Age-related osteoporosis without current pathological fracture; N20.0 Calculus of kidney; M54.30 Sciatica, unspecified side; T38.0X5A Adverse effect of glucocorticoids and synthetic analogues, initial encounter; Z86.73 Personal history of transient ischemic attack (TIA), and cerebral infarction without residual deficits; Z85.828 Personal history of other malignant neoplasm of skin; Z87.01 Personal history of pneumonia (recurrent); Z87.442 Personal history of urinary calculi; Z88.0 Allergy status to penicillin; Z88.2 Allergy status to sulfonamides; Z88.8 Allergy status to other drugs, medicaments and biological substances; Z98.1 Arthrodesis status; Z79.84 Long term (current) use of oral hypoglycemic drugs; Z79.82 Long term (current) use of aspirin; Z79.4 Long term (current) use of insulin; Z79.51 Long term (current) use of inhaled steroids; Z79.899 Other long term (current) drug therapy
CPT/HCPCS: 36415; 71020; 80053; 82550; 82553; 83036; 83880; 84484; 85025; 85610; 85730; 87040; 87502; 93005; 94640; 96374; 99285

== ENCOUNTER → 2016-08-20 | Outpatient (CLI) | payer MEDICARE, OTHER ==
--- NOTE | 2016-08-20 14:17 | US ---
EXAMINATION TYPE: US venous doppler duplex LE BI DATE OF EXAM: 08/20/2016 2:08 PM COMPARISON: US CLINICAL HISTORY: Localized Edema R60.0. Bilateral cellulitis, obese patient SIDE PERFORMED: Bilateral TECHNIQUE: The lower extremity deep venous system is examined utilizing real time linear array sonog song with graded compression, doppler sonography and color-flow sonography. VESSELS IMAGED: External Iliac Vein (EIV) Common Femoral Vein Deep Femoral Vein Greater Saphenous Vein * Femoral Vein Popliteal Vein Small Saphenous Vein * Proximal Calf Veins (* superficial vessels) Right Leg: Appears negative for DVT Left Leg: Appears negative for DVT IMPRESSION: No evidence for a right lower extremity DVT.
== END | disposition home or self-care (01) ==
LOC: RADUSWWP 13:30
PROVIDERS: ATTEND Family Medicine
DX: R60.0 Localized edema (principal)
CPT/HCPCS: 93970

== ENCOUNTER → 2016-08-27 | Outpatient (CLI) | payer MEDICARE, OTHER ==
--- NOTE | 2016-08-27 17:02 | XR ---
2 view chest x-ray HISTORY: Low back pain 2 views of the chest correlated to prior exam March Extensive postsurgical change, thoracic cord stimulator and scoliosis again noted status post posteri or fusion at L1-S1. Bone mineralization is reduced. This may limit sensitivity. Side screws present a t L2-3 with bracket as on prior exam. Loss of disc height at the intervertebral levels is noted. Ther e are vascular calcifications. IMPRESSION: Stable findings. Postop change, scoliosis, degenerative disc disease and osteoporosis. Po st instrumentation changes show a similar appearance.
== END | disposition home or self-care (01) ==
LOC: RADXRMAIN 15:54
PROVIDERS: ATTEND Psychiatry & Neurology Neurology
DX: M41.9 Scoliosis, unspecified (principal); M51.36 Other intervertebral disc degeneration, lumbar region; M81.0 Age-related osteoporosis without current pathological fracture; Z98.1 Arthrodesis status
CPT/HCPCS: 72100

== ENCOUNTER → 2016-10-02 | Outpatient (CLI) | payer MEDICARE, OTHER ==
--- NOTE | 2016-10-02 17:52 | CT ---
EXAMINATION TYPE: CT lumbar spine wo con DATE OF EXAM: 10/02/2016 3:13 PM COMPARISON: 08/27/2016 radiographs HISTORY: Severe low back pain for [address] DLP: 2213.9 mGycm. Automated exposure control for dose reduction was used. TECHNIQUE: Unenhanced CT of the lumbar spine was performed. Bone and soft tissue window settings are submitted as well as coronal and sagittal reconstructions. FINDINGS: The lumbar spinal hardware is intact and without periprosthesis lucencies. There is 9 mm an terolisthesis of L4 upon L5, this appears similar to the prior study. There is no fracture, and no paravertebral soft tissue abnormalities. There are no focal bone lesions . The bilateral bone fusion masses appear intact.The psoas musculature are symmetric and normal. The dorsal spinal musculature is unremarkable. There are no definite epidural defects. The orthopedic hardware provides metallic beam hardening jossie fact which obscures visualization, but multiplanar reconstructions are negative for definite epidural defects. IMPRESSION: NO ACUTE/SUBACUTE PROCESS.
== END | disposition home or self-care (01) ==
LOC: RADCTMAIN 14:57
PROVIDERS: ATTEND Psychiatry & Neurology Neurology
DX: M54.5 Low back pain (principal)
CPT/HCPCS: 72131

== ENCOUNTER 2016-10-18 20:47 | Inpatient (IN) | payer MEDICARE, OTHER ==
[2016-10-18] MEDS ORDERED: ONDANSETRON 4 MG/2 ML VIAL IVP STA (21:44)
[2016-10-18] MEDS ORDERED: MORPHINE SULFATE 4 MG/ML SYRINGE IVP STA (21:45)
--- NOTE | 2016-10-18 21:45 | ED ---
General Adult HPI - General Chief complaint: Altered Mental Status Stated complaint: Altered Mental Status Time Seen by Provider: 10/18/16 21:16 Source: patient, family, RN notes reviewed Mode of arrival: wheelchair Limitations: no limitations - History of Present Illness Initial comments: Patient is a 71-year-old female presents to the emergency room for evaluation of confusion. Patient states she woke up this morning feeling confused. Patient states she's not sure if she took all of her medications today or not. Patient states that she did vomit today. Patient states she hasn't eaten anything today. Patient states she has a history of diabetes. Patient states she takes insulin. Patient also states she has a history of sarcoidosis. Patient also states she has history of chronic low back pain. Patient denies any known fevers. Patient denies headache or dizziness. Patient denies chest pain or shortness of breath. Patient states she's been developing slight burning during urination about 3 days ago. Patient also states she's been nauseous over the past week. Patient states she's only been vomiting starting today. Patient denies abdominal pain. Patient denies constipation or diarrhea. Patient denies any recent changes in dosages of medications. Patient does states she was started on baclofen about a week ago. - Related Data Home Medications Medication Instructions Recorded Confirmed Metoprolol Succinate (ER) [Toprol 25 mg PO BID 08/21/13 10/18/16 XL] Multivit with Calcium,Iron,Min 1 tab PO QAM 08/21/13 10/18/16 [Women's Daily Multivitamin] metFORMIN HCL [Glucophage] 1,000 mg PO AC-SUPPER 08/21/13 10/18/16 metFORMIN HCL [Glucophage] 500 mg PO AC-BRKFST 08/21/13 10/18/16 Insulin Aspart [NovoLOG] 18 unit SQ AC-SUPPER 04/18/15 10/18/16 Magnesium Gluconate [Magonate] 500 mg PO QAM 04/18/15 10/18/16 clonazePAM [KlonoPIN] 0.5 - 1 mg PO HS PRN 04/18/15 10/18/16 Amitriptyline HCl [Elavil] 50 mg PO HS 06/24/15 10/18/16 Aspirin 81 mg PO QAM 06/24/15 10/18/16 Atorvastatin [Lipitor] 40 mg PO HS 06/24/15 10/18/16 Cholecalciferol [Vitamin D3] 1,000 unit PO QAM 06/24/15 10/18/16 Insulin Aspart [NovoLOG] 16 unit SQ AC-BRKFST 06/24/15 10/18/16 Insulin Aspart [NovoLOG] 18 unit SQ AC-LUNCH 06/24/15 10/18/16 Furosemide [Lasix] 40 mg PO BID@0800,1200 02/13/16 10/18/16 Insulin Glargine [Lantus] 47 unit SQ AC-LUNCH 02/13/16 10/18/16 Ipratropium-Albuterol Nebulize 3 ml INHALATION RT-QID 04/03/16 10/18/16 [Duoneb 0.5 mg-3 mg/3 ml Soln] Gabapentin [Neurontin] 300 mg PO BID 07/03/16 10/18/16 Baclofen [Lioresal] 20 mg PO HS 10/18/16 10/18/16 Spironolactone [Aldactone] 25 mg PO QAM 10/18/16 10/18/16 Triamcinolone Acetonide 1 applic TOPICAL BID 10/18/16 10/18/16 [Triamcinolone Acetonide 0.025%] Vitamin B Complex W/ Vitamin C 1 tab PO QAM 10/18/16 10/18/16 predniSONE 5 mg PO DAILY 10/18/16 10/18/16 Allergies Allergy/AdvReac Type Severity Reaction Status Date / Time erythromycin base Allergy Unknown Rash/Hives Verified 10/18/16 21:10 [Erythromycin Base] metoclopramide HCl Allergy Unknown Rash/Hives Verified 10/18/16 21:10 [From Reglan] Sulfa (Sulfonamide Allergy Unknown Rash/Hives Verified 10/18/16 21:10 Antibiotics) Penicillins Allergy Unknown Verified 10/18/16 21:10 Review of Systems ROS Statement: Those systems with pertinent positive or pertinent negative responses have been documented in the HPI. ROS Other: All systems not noted in ROS Statement are negative. 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, non alcoholic steatohepatitis, nephrolithiasis, osteoporosis,sciatica, restless leg syndrome, anemia, hx of TIA 2, thyroid nodule, diverticulosis, skin cancer, "double vison with distance for past 6 months pt has been evaluated by ophthalmology, tracheobronchomalacia, diabetes mellitus type 2, hypertension, hyperlipidemia, hypothyroidism, restless leg syndrome, CHF with diastolic dysfunction, moderate degree of aortic stenosis Last Myocardial Infarction Date:: unknown History of Any Multi-Drug Resistant Organisms: None Reported Past Surgical History: Back Surgery, Cholecystectomy, Heart Catheterization, Tubal Ligation Additional Past Surgical History / Comment(s): several bronchoscopies, cystoscopy 2000, laminectomy 1982,1999,2000,2002,2006 but total of 13 back sx including implanted pain stimulator, liver biopsy 2008, cataract surgery 2009, lithotripsy, liver bx 2008 had ercp /stent in liver, skin ca removed. jonah carpal tunnel done x2,heel spurs rt heel . thyroid bx(nodule) Past Anesthesia/Blood Transfusion Reactions: Motion Sickness Additional Past Anesthesia/Blood Transfusion Reaction / Comment(s): claustrophobia. NEVER HAD ANY BLOOD TRANSFUSIONS Past Psychological History: Anxiety, Depression Smoking Status: Never smoker Past Alcohol Use History: None Reported Past Drug Use History: None Reported - Past Family History Father History Unknown: Yes Additional Family Medical History / Comment(s): was adopted Mother History Unknown: Yes Family Medical History: Cancer Additional Family Medical History / Comment(s): breast General Exam - General Exam Comments Initial Comments: sitting up in exam room appears uncomfortable secondary to low back pain. distress. Limitations: no limitations Course Vital Signs 10/18/16 10/18/16 10/19/16 20:50 23:56 02:10 Temperature 99.2 F Pulse Rate 117 H 107 H 110 H Respiratory 24 18 18 Rate Blood Pressure 144/83 138/63 113/55 O2 Sat by Pulse 97 95 Oximetry EKG Findings - EKG Comments: EKG Findings:: sinus tachycardia, ventricular rate 110 bpm, IA interval 168 ms, QRS duration 98 ms, QT/QTC 360/487 ms Medical Decision Making - Medical Decision Making Patient is a 71-year-old female since emergency room for evaluation of confusion , vomiting and chronic low back pain. Lactic acid elevated. Liver enzymes also noted to be elevated. Patient does have a history of cholecystectomy.Abdominal ultrasound: History of cholecystectomy. No that there is appearance of a gallbladder with gallstones. Positive sonographic Moody sign. No definite evidence of acute cholecystitis. Patient still denying any abdominal pain. Patient will be admitted for rehydration. Case discussed with Dr. Dominguez. - Lab Data Result diagrams: 10/18/16 21:30 10/18/16 21:30 Lab Results 10/18/16 10/18/16 10/18/16 Range/Units 21:30 21:30 21:30 WBC 7.5 (3.8-10.6) k/uL RBC 4.75 (3.80-5.40) m/uL Hgb 15.2 (11.4-16.0) gm/dL Hct 43.6 (34.0-46.0) % MCV 92.0 (80.0-100.0) fL MCH 32.0 (25.0-35.0) pg MCHC 34.8 (31.0-37.0) g/dL RDW 14.3 (11.5-15.5) % Plt Count 160 (150-450) k/uL Neutrophils % 79 % Lymphocytes % 11 % Monocytes % 5 % Eosinophils % 2 % Basophils % 0 % Neutrophils # 5.9 (1.3-7.7) k/uL Lymphocytes # 0.8 L (1.0-4.8) k/uL Monocytes # 0.4 (0-1.0) k/uL Eosinophils # 0.1 (0-0.7) k/uL Basophils # 0.0 (0-0.2) k/uL PT (9.0-12.0) sec INR (<1.1) APTT (22.0-30.0) sec Sodium 139 (137-145) mmol/L Potassium 4.3 (3.5-5.1) mmol/L Chloride 106 (98-107) mmol/L Carbon Dioxide 23 (22-30) mmol/L Anion Gap 10 mmol/L BUN 15 (7-17) mg/dL Creatinine 0.46 L (0.52-1.04) mg/dL Est GFR (MDRD) Af Amer >60 (>60 ml/min/1.73 sqM) Est GFR (MDRD) Non-Af >60 (>60 ml/min/1.73 sqM) Glucose 260 H (74-99) mg/dL Plasma Lactic Acid Eddie (0.7-2.0) mmol/L Calcium 9.3 (8.4-10.2) mg/dL Total Bilirubin 1.5 H (0.2-1.3) mg/dL AST 56 H (14-36) U/L ALT 56 H (9-52) U/L Alkaline Phosphatase 127 H (38-126) U/L Total Creatine Kinase 150 H (30-135) U/L CK-MB (CK-2) 2.7 H* (0.0-2.4) ng/mL CK-MB (CK-2) Rel Index 1.8 Troponin I <0.012 (0.000-0.034) ng/mL Total Protein 6.6 (6.3-8.2) g/dL Albumin 3.7 (3.5-5.0) g/dL Amylase (30-110) U/L Lipase (23-300) U/L Urine Color Urine Appearance (Clear) Urine pH (5.0-8.0) Ur Specific [place] (1.001-1.035) Urine Protein (Negative) Urine Glucose (UA) (Negative) Urine Ketones (Negative) Urine Blood (Negative) Urine Nitrite (Negative) Urine Bilirubin (Negative) Urine Urobilinogen (<2.0) mg/dL Ur Leukocyte Esterase (Negative) Urine RBC (0-5) /hpf Urine WBC (0-5) /hpf Ur Squamous Epith Cells (0-4) /hpf Urine Bacteria (None) /hpf Acetone, Qual Negative (Negative) 10/18/16 10/18/16 10/18/16 Range/Units 21:30 21:30 21:30 WBC (3.8-10.6) k/uL RBC (3.80-5.40) m/uL Hgb (11.4-16.0) gm/dL Hct (34.0-46.0) % MCV (80.0-100.0) fL MCH (25.0-35.0) pg MCHC (31.0-37.0) g/dL RDW (11.5-15.5) % Plt Count (150-450) k/uL Neutrophils % % Lymphocytes % % Monocytes % % Eosinophils % % Basophils % % Neutrophils # (1.3-7.7) k/uL Lymphocytes # (1.0-4.8) k/uL Monocytes # (0-1.0) k/uL Eosinophils # (0-0.7) k/uL Basophils # (0-0.2) k/uL PT 12.4 H (9.0-12.0) sec INR 1.3 (<1.1) APTT 23.5 (22.0-30.0) sec Sodium (137-145) mmol/L Potassium (3.5-5.1) mmol/L Chloride (98-107) mmol/L Carbon Dioxide (22-30) mmol/L Anion Gap mmol/L BUN (7-17) mg/dL Creatinine (0.52-1.04) mg/dL Est GFR (MDRD) Af Amer (>60 ml/min/1.73 sqM) Est GFR (MDRD) Non-Af (>60 ml/min/1.73 sqM) Glucose (74-99) mg/dL Plasma Lactic Acid Eddie 2.4 H* (0.7-2.0) mmol/L Calcium (8.4-10.2) mg/dL Total Bilirubin (0.2-1.3) mg/dL AST (14-36) U/L ALT (9-52) U/L Alkaline Phosphatase (38-126) U/L Total Creatine Kinase (30-135) U/L CK-MB (CK-2) (0.0-2.4) ng/mL CK-MB (CK-2) Rel Index Troponin I (0.000-0.034) ng/mL Total Protein (6.3-8.2) g/dL Albumin (3.5-5.0) g/dL Amylase <30 L (30-110) U/L Lipase 56 (23-300) U/L Urine Color Urine Appearance (Clear) Urine pH (5.0-8.0) Ur Specific [place] (1.001-1.035) Urine Protein (Negative) Urine Glucose (UA) (Negative) Urine Ketones (Negative) Urine Blood (Negative) Urine Nitrite (Negative) Urine Bilirubin (Negative) Urine Urobilinogen (<2.0) mg/dL Ur Leukocyte Esterase (Negative) Urine RBC (0-5) /hpf Urine WBC (0-5) /hpf Ur Squamous Epith Cells (0-4) /hpf Urine Bacteria (None) /hpf Acetone, Qual (Negative) 10/18/16 10/19/16 Range/Units 21:50 02:12 WBC (3.8-10.6) k/uL RBC (3.80-5.40) m/uL Hgb (11.4-16.0) gm/dL Hct (34.0-46.0) % MCV (80.0-100.0) fL MCH (25.0-35.0) pg MCHC (31.0-37.0) g/dL RDW (11.5-15.5) % Plt Count (150-450) k/uL Neutrophils % % Lymphocytes % % Monocytes % % Eosinophils % % Basophils % % Neutrophils # (1.3-7.7) k/uL Lymphocytes # (1.0-4.8) k/uL Monocytes # (0-1.0) k/uL Eosinophils # (0-0.7) k/uL Basophils # (0-0.2) k/uL PT (9.0-12.0) sec INR (<1.1) APTT (22.0-30.0) sec Sodium (137-145) mmol/L Potassium (3.5-5.1) mmol/L Chloride (98-107) mmol/L Carbon Dioxide (22-30) mmol/L Anion Gap mmol/L BUN (7-17) mg/dL Creatinine (0.52-1.04) mg/dL Est GFR (MDRD) Af Amer (>60 ml/min/1.73 sqM) Est GFR (MDRD) Non-Af (>60 ml/min/1.73 sqM) Glucose (74-99) mg/dL Plasma Lactic Acid Eddie 1.3 (0.7-2.0) mmol/L Calcium (8.4-10.2) mg/dL Total Bilirubin (0.2-1.3) mg/dL AST (14-36) U/L ALT (9-52) U/L Alkaline Phosphatase (38-126) U/L Total Creatine Kinase (30-135) U/L CK-MB (CK-2) (0.0-2.4) ng/mL CK-MB (CK-2) Rel Index Troponin I (0.000-0.034) ng/mL Total Protein (6.3-8.2) g/dL Albumin (3.5-5.0) g/dL Amylase (30-110) U/L Lipase (23-300) U/L Urine Color Light Yellow Urine Appearance Clear (Clear) Urine pH 6.5 (5.0-8.0) Ur Specific [place] 1.009 (1.001-1.035) Urine Protein Negative (Negative) Urine Glucose (UA) 4+ H (Negative) Urine Ketones Negative (Negative) Urine Blood Trace H (Negative) Urine Nitrite Negative (Negative) Urine Bilirubin Negative (Negative) Urine Urobilinogen <2.0 (<2.0) mg/dL Ur Leukocyte Esterase Trace H (Negative) Urine RBC 1 (0-5) /hpf Urine WBC 3 (0-5) /hpf Ur Squamous Epith Cells <1 (0-4) /hpf Urine Bacteria Rare H (None) /hpf Acetone, Qual (Negative) - Radiology Data Radiology results: report reviewed, image reviewed Disposition Clinical Impression: Dehydration, Chronic back pain, Nausea and vomiting Disposition: ADMITTED IP TO THIS [facility] Condition: Stable Decision Date: 10/19/16
[2016-10-18 21:53] LABS: Basophils % (A) 0 %; CH 31.9; CHCM 34.8; Eosinophils # (A) 0.1 k/uL (0-0.7); Eosinophils % (A) 2 %; HCT 43.6 % (34.0-46.0); HDW 3.09; HGB 15.2 gm/dL (11.4-16.0); Luc # (Auto) 0.18; Luc % (Auto) 3; Lymphocytes # (A) 0.8 k/uL (1.0-4.8); Lymphocytes % (A) 11 %; MCHC 34.8 g/dL (31.0-37.0); Mean Platelet Volume 6.8; Monocytes # (A) 0.4 k/uL (0-1.0); Monocytes % (A) 5 %; Neutrophils # (A) 5.9 k/uL (1.3-7.7); Neutrophils % (A) 79 %; RBC 4.75 m/uL (3.80-5.40); RDW 14.3 % (11.5-15.5); WBC 7.5 k/uL (3.8-10.6); WBC (Perox) 6.64
[2016-10-18 22:03] LABS: INR 1.3 (<1.1); Partial Thromboplastin Time 23.5 sec (22.0-30.0); Prothrombin Time 12.4 sec (9.0-12.0)
[2016-10-18 22:04] LABS: ALT 56 U/L (9-52); AST 56 U/L (14-36); Alkaline Phosphatase 127 U/L (38-126); Anion Gap 10 mmol/L; Blood Urea Nitrogen 15 mg/dL (7-17); Calcium 9.3 mg/dL (8.4-10.2); Carbon Dioxide 23 mmol/L (22-30); Chloride 106 mmol/L (98-107); Glucose 260 mg/dL (74-99); Non-African American GFR(MDRD) >60 (>60 ml/min/1.73 sqM); Potassium 4.3 mmol/L (3.5-5.1); Sodium 139 mmol/L (137-145); Total Bilirubin 1.5 mg/dL (0.2-1.3); Total Protein 6.6 g/dL (6.3-8.2)
[2016-10-18] MEDS: SODIUM CHLORIDE 0.9% 500 ML IV SCH ×2 (22:04→23:53)
[2016-10-18 22:15] LABS: Creatine Kinase 150 U/L (30-135)
[2016-10-18 22:19] LABS: Appearance,Urine Clear (Clear); Bacteria,Urine Rare /hpf; Bilirubin,Urine Negative (Negative); Glucose,Urine (UA) 4+ (Negative); Ketones,Urine Negative (Negative); Leukocyte Esterase,Urine Trace (Negative); Nitrite,Urine Negative (Negative); PH, Urine 6.5 (5.0-8.0); Particle Count 633; Protein,Urine Negative (Negative); RBC,Urine 1 /hpf (0-5); Specific Gravity,Urine 1.009 (1.001-1.035); Squamous Epithelial Cell,Urine <1 /hpf (0-4); UA Billing (MACRO vs. MICRO) MICRO; Urobilinogen,Urine <2.0 mg/dL (<2.0); WBC,Urine 3 /hpf (0-5)
[2016-10-18 22:27] LABS: Troponin I <0.012 ng/mL (0.000-0.034)
[2016-10-18 22:30] LABS: Creatine Kinase MB 2.7 ng/mL (0.0-2.4)
[2016-10-18 22:43] LABS: Amylase <30 U/L (30-110)
--- NOTE | 2016-10-18 23:27 | XR ---
EXAM: XR Chest, 2 Views CLINICAL HISTORY: pain TECHNIQUE: Frontal and lateral views of the chest. COMPARISON: Chest x-ray dated 07/03/2016 FINDINGS: Lungs: Diffuse airspace opacities. No focal consolidation. Pleural space: Unremarkable. No pneumothorax. Heart: Unremarkable. No cardiomegaly. Mediastinum: Unremarkable. Bones/joints: Degenerative changes of the osseous structures with orthopedic hardware noted within the cervical and lumbar spine. The Tubes, lines and devices: Spinal neurostimulator noted within the mid thoracic spine. IMPRESSION: Diffuse airspace opacities which may represent pulmonary edema or an infectious process. No focal consolidation.
--- NOTE | 2016-10-19 00:10 | US ---
EXAM: US Abdomen Limited, Right Upper Quadrant CLINICAL HISTORY: Reason: Pain TECHNIQUE: Real-time ultrasound of the right upper quadrant with image documentation. COMPARISON: No relevant prior studies available. FINDINGS: Liver: The liver is normal in size measuring up to 16.3 cm. Coarse heterogeneous echotexture which may represent cirrhosis. No masses. No intrahepatic bile duct dilation. Gallbladder: History of cholecystectomy. Note that there is appearance of a gallbladder with gallstones. Positive sonographic Moody's sign. Common bile duct: The common bile duct is mildly dilated measuring up to 10 mm. No stones. Pancreas: Unremarkable as visualized. Right kidney: The right kidney measures up to 9.3 cm. No stones. No hydronephrosis. IMPRESSION: History of cholecystectomy. Note that there is appearance of a gallbladder with gallstones. Positive sonographic Moody's sign. No definite evidence of acute cholecystitis. Consider nuclear medicine HIDA scan if clinically indicated.
[2016-10-19] MEDS ORDERED: ONDANSETRON 4 MG/2 ML VIAL IVP PRN (00:27)
[2016-10-19] MEDS ORDERED: NALOXONE 0.4 MG/ML 1 ML VIAL IV PRN (00:27)
[2016-10-19] MEDS ORDERED: MORPHINE SULFATE 4 MG/ML SYRINGE IV PRN (00:27)
[2016-10-19 03:39] VITALS: BMI 39.4
[2016-10-19 03:43] LABS: Glucose,Whole Blood 170 mg/dL (75-99)
[2016-10-19] MEDS: SODIUM CHLORIDE 0.9% 1,000 ML IV SCH ×2 (03:54→10:59)
[2016-10-19 07:13] LABS: Glucose,Whole Blood 164 mg/dL (75-99)
[2016-10-19] MEDS: INSULIN LISPRO (humaLOG) 300 UNIT/3 ML VIAL SQ SCH ×2 (07:37→12:40)
[2016-10-19 07:39] VITALS: BP 121/89; PULSE 107; RESP 20; TEMP 98.8
[2016-10-19 10:34] LABS: Hemoglobin A1C 8.2 % (4.2-6.1)
[2016-10-19 11:46] LABS: Glucose,Whole Blood 242 mg/dL (75-99)
--- NOTE | 2016-10-20 16:58 | P.HPIM ---
History of Present Illness H&P Date: 10/19/16 Patient came in with the comments of confusion, patient may have taken excess of her pain medications as per the patient and patient's daughter. When I valid the patient patient is alert oriented 3. Patient denied any dysuria, UA is not impressive for urinary tract infection no other signs or symptoms of sepsis were appreciated. Patient does have history of sarcoidosis. Was recently discharged from the hospital. Patient did take more pain medications than she is supposed to because of her back pain including baclofen and Neurontin. Review of Systems REVIEW OF SYSTEMS: CONSTITUTIONAL: No fever, no malaise, no fatigue. HEENT: No recent visual problems or hearing problems. Denied any sore throat. CARDIOVASCULAR: No chest pain, orthopnea, PND, no palpitations, no syncope. PULMONARY: No shortness of breath, no cough, no hemoptysis. GASTROINTESTINAL: No diarrhea, no nausea, no vomiting, no abdominal pain. Normoactive bowel sounds. NEUROLOGICAL: No headaches, no weakness, no numbness. Altered mental status as mentioned in the HPI no focal neurological deficits HEMATOLOGICAL: Denies any bleeding or petechiae. GENITOURINARY: Denies any burning micturition, frequency, or urgency. MUSCULOSKELETAL/RHEUMATOLOGICAL: Denies any joint pain, swelling, or any muscle pain. ENDOCRINE: Denies any polyuria or polydipsia. The rest of the 14-point review of systems is negative. 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, non alcoholic steatohepatitis, nephrolithiasis, osteoporosis,sciatica, restless leg syndrome, anemia, hx of TIA 2, thyroid nodule, diverticulosis, skin cancer, "double vison with distance for past 6 months pt has been evaluated by ophthalmology, tracheobronchomalacia, diabetes mellitus type 2, hypertension, hyperlipidemia, hypothyroidism, restless leg syndrome, CHF with diastolic dysfunction, moderate degree of aortic stenosis Last Myocardial Infarction Date:: unknown History of Any Multi-Drug Resistant Organisms: None Reported Past Surgical History: Back Surgery, Cholecystectomy, Heart Catheterization, Tubal Ligation Additional Past Surgical History / Comment(s): several bronchoscopies, cystoscopy 2000, laminectomy 1982,1999,2000,2002,2006 but total of 13 back sx including implanted pain stimulator, liver biopsy 2008, cataract surgery 2009, lithotripsy, liver bx 2008 had ercp /stent in liver, skin ca removed. jonah carpal tunnel done x2,heel spurs rt heel . thyroid bx(nodule) Past Anesthesia/Blood Transfusion Reactions: Motion Sickness Additional Past Anesthesia/Blood Transfusion Reaction / Comment(s): claustrophobia. NEVER HAD ANY BLOOD TRANSFUSIONS Past Psychological History: Anxiety, Depression Additional Psychological History / Comment(s): pt lives with and 1 dog in one level home 2 steps into home. has cane/walker, shower chair, nebulizer at home. currently no outside services. Smoking Status: Never smoker Past Alcohol Use History: None Reported Past Drug Use History: None Reported - Past Family History Father History Unknown: Yes Additional Family Medical History / Comment(s): was adopted Mother History Unknown: Yes Family Medical History: Cancer Additional Family Medical History / Comment(s): breast Medications and Allergies Home Medications Medication Instructions Recorded Confirmed Type Metoprolol Succinate (ER) [Toprol 25 mg PO BID 08/21/13 10/18/16 History XL] Multivit with Calcium,Iron,Min 1 tab PO QAM 08/21/13 10/18/16 History [Women's Daily Multivitamin] Insulin Aspart [NovoLOG] 18 unit SQ AC-SUPPER 04/18/15 10/18/16 History Magnesium Gluconate [Magonate] 500 mg PO QAM 04/18/15 10/18/16 History clonazePAM [KlonoPIN] 0.5 - 1 mg PO HS PRN 04/18/15 10/18/16 History Amitriptyline HCl [Elavil] 50 mg PO HS 06/24/15 10/18/16 History Aspirin 81 mg PO QAM 06/24/15 10/18/16 History Atorvastatin [Lipitor] 40 mg PO HS 06/24/15 10/18/16 History Cholecalciferol [Vitamin D3] 1,000 unit PO QAM 06/24/15 10/18/16 History Insulin Aspart [NovoLOG] 16 unit SQ AC-BRKFST 06/24/15 10/18/16 History Insulin Aspart [NovoLOG] 18 unit SQ AC-LUNCH 06/24/15 10/18/16 History Furosemide [Lasix] 40 mg PO BID@0800,1200 02/13/16 10/18/16 History Ipratropium-Albuterol Nebulize 3 ml INHALATION RT-QID 04/03/16 10/18/16 History [Duoneb 0.5 mg-3 mg/3 ml Soln] Gabapentin [Neurontin] 300 mg PO BID 07/03/16 10/18/16 History Baclofen [Lioresal] 20 mg PO HS 10/18/16 10/18/16 History Spironolactone [Aldactone] 25 mg PO QAM 10/18/16 10/18/16 History Triamcinolone Acetonide 1 applic TOPICAL BID 10/18/16 10/18/16 History [Triamcinolone Acetonide 0.025%] Vitamin B Complex W/ Vitamin C 1 tab PO QAM 10/18/16 10/18/16 History predniSONE 5 mg PO DAILY 10/18/16 10/18/16 History Allergies Allergy/AdvReac Type Severity Reaction Status Date / Time erythromycin base Allergy Unknown Rash/Hives Verified 10/18/16 21:10 [Erythromycin Base] metoclopramide HCl Allergy Unknown Rash/Hives Verified 10/18/16 21:10 [From Reglan] Sulfa (Sulfonamide Allergy Unknown Rash/Hives Verified 10/18/16 21:10 Antibiotics) Penicillins Allergy Unknown Verified 10/18/16 21:10 Physical Exam PHYSICAL EXAMINATION: GENERAL: The patient is alert and oriented x3, not in any acute distress. Well developed, well nourished. HEENT: Pupils are round and equally reacting to light. EOMI. No scleral icterus. No conjunctival pallor. Normocephalic, atraumatic. No pharyngeal erythema. No thyromegaly. CARDIOVASCULAR: S1 and S2 present. No murmurs, rubs, or gallops. PULMONARY: Chest is clear to auscultation, no wheezing or crackles. ABDOMEN: Soft, nontender, nondistended, normoactive bowel sounds. No palpable organomegaly. MUSCULOSKELETAL: No joint swelling or deformity. EXTREMITIES: No cyanosis, clubbing, or pedal edema. NEUROLOGICAL: Gross neurological examination did not reveal any focal deficits. SKIN: No rashes. Results CBC & Chem 7: 10/18/16 21:30 10/18/16 21:30 Labs: Microbiology - Last 24 Hours (Table) 10/18/16 21:50 Urine Culture - Preliminary Urine,Clean Catch Gram Neg Bacilli 10/18/16 21:30 Blood Culture - Preliminary Blood No Growth after 24 hours Thrombosis Risk Factor Assmnt - Choose All That Apply Each Factor Represents 1 point: Abnormal pulmonary function (COPD), Obesity ( BMI >25) Other Risk Factors: Yes Each Risk Factor Represents 2 Points: Age 61-74 years Thrombosis Risk Factor Assessment Total Risk Factor Score: 4 Thrombosis Risk Factor Assessment Level: Moderate Risk Assessment and Plan Plan: #1 altered mental status secondary to toxic encephalopathy from excess use of muscle relaxants. Extensive counseling regarding medication use was provided and recommended that her daughter supervises her medications. And patient will be discharged today. #2 lactic acidosis secondary to metformin and metformin were discontinued and we 'll increase the dose of Lantus and patient has uncontrolled blood sugars and uncontrollable despite this with hemoglobin A1c of around 10. #3 type 2 diabetes with us: Uncontrolled blood sugars. Further management as mentioned in assessment #2 #4 CVA or TIA in the past #5 hypertension #6 sarcoidosis without any exacerbation. #7 COPD without any acute exacerbation #8 severe osteoarthritis #9 hyperlipidemia #10 coronary artery disease #11 peripheral neuropathy diabetic peripheral neuropathy #12 chronic low back pain #13 gastroesophageal reflux disease Patient has multiple other medical problems for which she'll continue her home medications except those changes mentioned above.
--- NOTE | 2016-10-20 16:58 | P.DS ---
Providers Date of admission: 10/19/16 02:23 Attending physician: Ronan Webster Primary care physician: [facility][1] Course: please refer to HPI Patient Condition at Discharge: Stable Plan - Discharge Summary New Discharge Prescriptions: Continue Multivit with Calcium,Iron,Min [Women's Daily Multivitamin] 1 tab PO QAM Metoprolol Succinate (ER) [Toprol XL] 25 mg PO BID Insulin Aspart [NovoLOG] 18 unit SQ AC-SUPPER Magnesium Gluconate [Magonate] 500 mg PO QAM clonazePAM [KlonoPIN] 0.5 - 1 mg PO HS PRN PRN Reason: restless leg Cholecalciferol [Vitamin D3] 1,000 unit PO QAM Aspirin 81 mg PO QAM Amitriptyline HCl [Elavil] 50 mg PO HS Insulin Aspart [NovoLOG] 18 unit SQ AC-LUNCH Atorvastatin [Lipitor] 40 mg PO HS Insulin Aspart [NovoLOG] 16 unit SQ AC-BRKFST Furosemide [Lasix] 40 mg PO BID@0800,1200 Ipratropium-Albuterol Nebulize [Duoneb 0.5 mg-3 mg/3 ml Soln] 3 ml INHALATION RT-QID Gabapentin [Neurontin] 300 mg PO BID Vitamin B Complex W/ Vitamin C 1 tab PO QAM Triamcinolone Acetonide [Triamcinolone Acetonide 0.025%] 1 applic TOPICAL BID Spironolactone [Aldactone] 25 mg PO QAM predniSONE 5 mg PO DAILY Baclofen [Lioresal] 20 mg PO HS Changed Insulin Glargine [Lantus] 60 unit SQ AC-LUNCH #0 Discontinued metFORMIN HCL [Glucophage] 1,000 mg PO AC-SUPPER metFORMIN HCL [Glucophage] 500 mg PO AC-BRKFST Discharge Medication List Metoprolol Succinate (ER) [Toprol XL] 25 mg PO BID 08/21/13 [History] Multivit with Calcium,Iron,Min [Women's Daily Multivitamin] 1 tab PO QAM [History] Insulin Aspart [NovoLOG] 18 unit SQ AC-SUPPER 04/18/15 [History] Magnesium Gluconate [Magonate] 500 mg PO QAM 04/18/15 [History] clonazePAM [KlonoPIN] 0.5 - 1 mg PO HS PRN 04/18/15 [History] Amitriptyline HCl [Elavil] 50 mg PO HS 06/24/15 [History] Aspirin 81 mg PO QAM 06/24/15 [History] Atorvastatin [Lipitor] 40 mg PO HS 06/24/15 [History] Cholecalciferol [Vitamin D3] 1,000 unit PO QAM 06/24/15 [History] Insulin Aspart [NovoLOG] 16 unit SQ AC-BRKFST 06/24/15 [History] Insulin Aspart [NovoLOG] 18 unit SQ AC-LUNCH 06/24/15 [History] Furosemide [Lasix] 40 mg PO BID@0800,1200 02/13/16 [History] Ipratropium-Albuterol Nebulize [Duoneb 0.5 mg-3 mg/3 ml Soln] 3 ml INHALATION RT -QID 04/03/16 [History] Gabapentin [Neurontin] 300 mg PO BID 07/03/16 [History] Baclofen [Lioresal] 20 mg PO HS 10/18/16 [History] Spironolactone [Aldactone] 25 mg PO QAM 10/18/16 [History] Triamcinolone Acetonide [Triamcinolone Acetonide 0.025%] 1 applic TOPICAL BID [History] Vitamin B Complex W/ Vitamin C 1 tab PO QAM 10/18/16 [History] predniSONE 5 mg PO DAILY 10/18/16 [History] Insulin Glargine [Lantus] 60 unit SQ AC-LUNCH #0 10/19/16 [Rx] Follow up Appointment(s)/Referral(s): Harry Abel DO [Primary Care Provider] - 3 Days Patient Instructions/Handouts: Dehydration (DC) Discharge Disposition: HOME SELF-CARE
== END 2016-10-19 15:31 | disposition home or self-care (01) | DRG 640 ==
LOC: EC 20:47 → 4MS4W 10-19 02:23
PROVIDERS: ADMIT Hospitalist; ATTEND Hospitalist
DX: E86.0 Dehydration (principal); G92 Toxic encephalopathy; E87.2 Acidosis; E11.42 Type 2 diabetes mellitus with diabetic polyneuropathy; I11.0 Hypertensive heart disease with heart failure; M35.00 Sjogren syndrome, unspecified; I50.32 Chronic diastolic (congestive) heart failure; G61.81 Chronic inflammatory demyelinating polyneuritis; E11.65 Type 2 diabetes mellitus with hyperglycemia; J44.9 Chronic obstructive pulmonary disease, unspecified; T42.6X1A Poisoning by other antiepileptic and sedative-hypnotic drugs, accidental (unintentional), initial encounter; T42.8X1A Poisoning by antiparkinsonism drugs and other central muscle-tone depressants, accidental (unintentional), initial encounter; T42.4X1A Poisoning by benzodiazepines, accidental (unintentional), initial encounter; I25.10 Atherosclerotic heart disease of native coronary artery without angina pectoris; T38.3X5A Adverse effect of insulin and oral hypoglycemic [antidiabetic] drugs, initial encounter; I35.0 Nonrheumatic aortic (valve) stenosis; K75.81 Nonalcoholic steatohepatitis (NASH); F32.9 Major depressive disorder, single episode, unspecified; M54.30 Sciatica, unspecified side; M19.90 Unspecified osteoarthritis, unspecified site; G89.29 Other chronic pain; E03.9 Hypothyroidism, unspecified; I25.2 Old myocardial infarction; K21.9 Gastro-esophageal reflux disease without esophagitis; M81.0 Age-related osteoporosis without current pathological fracture; E78.5 Hyperlipidemia, unspecified; D86.9 Sarcoidosis, unspecified; E66.9 Obesity, unspecified; J98.09 Other diseases of bronchus, not elsewhere classified; G25.81 Restless legs syndrome; R00.0 Tachycardia, unspecified; R30.9 Painful micturition, unspecified; R11.2 Nausea with vomiting, unspecified; E04.1 Nontoxic single thyroid nodule; H53.2 Diplopia; F41.9 Anxiety disorder, unspecified; J39.8 Other specified diseases of upper respiratory tract; K57.90 Diverticulosis of intestine, part unspecified, without perforation or abscess without bleeding; Z87.01 Personal history of pneumonia (recurrent); Z79.899 Other long term (current) drug therapy; Z79.82 Long term (current) use of aspirin; Z79.4 Long term (current) use of insulin; Z88.1 Allergy status to other antibiotic agents; Z87.442 Personal history of urinary calculi; Z90.49 Acquired absence of other specified parts of digestive tract; Z85.828 Personal history of other malignant neoplasm of skin; Z86.73 Personal history of transient ischemic attack (TIA), and cerebral infarction without residual deficits; Z88.0 Allergy status to penicillin; Z88.2 Allergy status to sulfonamides; Z88.8 Allergy status to other drugs, medicaments and biological substances; Z86.69 Personal history of other diseases of the nervous system and sense organs; Z79.52 Long term (current) use of systemic steroids; Z71.89 Other specified counseling; Z98.51 Tubal ligation status; Z68.39 Body mass index [BMI] 39.0-39.9, adult; Z98.49 Cataract extraction status, unspecified eye; Z80.3 Family history of malignant neoplasm of breast
CPT/HCPCS: 36415; 71020; 76705; 80053; 81001; 82009; 82150; 82550; 82553; 83036; 83605; 83690; 84484; 85025; 85610; 85730; 87040; 87077; 87086; 87186; 93005; 96361; 96374; 96375; 99285

== ENCOUNTER → 2016-10-29 | Outpatient (CLI) | payer MEDICARE, OTHER ==
[2016-10-29 11:46] LABS: ALT 70 U/L (9-52); AST 77 U/L (14-36); Alkaline Phosphatase 112 U/L (38-126); Anion Gap 9 mmol/L; Blood Urea Nitrogen 18 mg/dL (7-17); Calcium 8.8 mg/dL (8.4-10.2); Carbon Dioxide 25 mmol/L (22-30); Chloride 105 mmol/L (98-107); Glucose 286 mg/dL (74-99); Non-African American GFR(MDRD) >60 (>60 ml/min/1.73 sqM); Potassium 3.9 mmol/L (3.5-5.1); Sodium 139 mmol/L (137-145); Total Protein 5.8 g/dL (6.3-8.2)
[2016-10-29 12:06] LABS: Basophils % (A) 0 %; CH 30.8; CHCM 32.9; Eosinophils # (A) 0.2 k/uL (0-0.7); Eosinophils % (A) 5 %; HCT 40.3 % (34.0-46.0); HDW 2.99; HGB 13.6 gm/dL (11.4-16.0); Luc # (Auto) 0.17; Luc % (Auto) 4; Lymphocytes # (A) 0.8 k/uL (1.0-4.8); Lymphocytes % (A) 17 %; MCH 31.7 pg (25.0-35.0); MCHC 33.7 g/dL (31.0-37.0); MCV 94.1 fL (80.0-100.0); Mean Platelet Volume 7.2; Monocytes # (A) 0.4 k/uL (0-1.0); Monocytes % (A) 8 %; Neutrophils # (A) 3.2 k/uL (1.3-7.7); Neutrophils % (A) 66 %; RBC 4.29 m/uL (3.80-5.40); RDW 14.2 % (11.5-15.5); WBC 4.8 k/uL (3.8-10.6); WBC (Perox) 5.12
== END | disposition home or self-care (01) ==
LOC: LABWHC1 10:16
PROVIDERS: ATTEND Family Medicine
DX: R74.0 Nonspecific elevation of levels of transaminase and lactic acid dehydrogenase [LDH] (principal)
CPT/HCPCS: 36415; 80053; 83605; 85025

== ENCOUNTER → 2016-11-07 | Outpatient (CLI) | payer MEDICARE, OTHER ==
--- NOTE | 2016-11-07 14:28 | NM ---
Nuclear medicine hepatobiliary scan. HISTORY: Pain. COMPARISON: 04/26/2011 DOSAGE: The patient received 8 ounces and sure plus and 5.4 mCi of Technetium 99m Choletec. FINDINGS: There is normal hepatic extraction. The gallbladder is not seen with certainty at 60 minut es . There is biliary to bowel clearance by 40 minutes. Ejection fraction is %. IMPRESSION: 1. Gallbladder is not seen at 60 minutes. History of previous cholecystectomy, however, recent ultrasound suggests gallbladder is still present . Correlate with CT scan.
--- NOTE | 2016-11-07 14:55 | CT ---
EXAMINATION TYPE: CT abdomen pelvis wo con DATE OF EXAM: 11/07/2016 HISTORY: Generalized abdominal pain CT DLP: 936 mGycm. Automated Exposure Control for Dose Reduction was Utilized. TECHNIQUE: CT scan of the abdomen and pelvis is performed without oral or IV contrast. COMPARISON: CT abdomen pelvis February 08, 2015 FINDINGS: Within the limitations of a non-contrast study, the following observations are made. LUNG BASES: Calcifications at level of the mitral valve are redemonstrated. There are calcified left infrahilar lymph nodes. There is parenchymal atelectasis and/or scarring medially in both bases now i dentified.. LIVER/GB: There are scattered calcifications throughout the liver. Liver is diffusely low dense consi stent with fatty infiltration. There is rim calcified 1.6 cm dependent calculus and liver redemonstra jose rafael. PANCREAS: No significant abnormality is seen. SPLEEN: Scattered calcifications throughout the spleen are redemonstrated. Findings are overall consi stent with product of old granulomatous disease. ADRENALS: No significant abnormality is seen. KIDNEYS: Some cortical thinning in both kidneys is present. Seen better on current study there is 7 m m calculus in lower pole calyx on coronal image 63. No hydronephrosis or obstructing renal calculi ar e evident bilaterally. No intraluminal calculus in the bladder is seen. BOWEL: Evaluation bowel is suboptimal secondary to lack of enteric contrast. Stomach is suboptimally evaluated due to underdistention. There is 1.2 cm diverticulum along medial portion of duodenum on co maia image 53. No suspicious small or large bowel dilatation is present. Appendix is felt within nor mal limits from the cecum. There are few diverticula in the sigmoid colon identified. There is some r edundancy of the sigmoid colon. GENITAL ORGANS: No gross abnormality seen. LYMPH NODES: No greater than 1cm noncalcified abdominal or pelvic lymph nodes are appreciated. There is prominent but subcentimeter calcified peripancreatic lymph node seen on axial image 22. OSSEOUS STRUCTURES: There is multilevel surgery in the lumbar spine. There are posterior interpedicul ar rods and screws transfixing L1-S1 levels. Artificial disc L2-L3 level is seen. There is grade 1 an terolisthesis L4 on L5 noted on sagittal image 52. There is some ossific fusion T11-T12 level. There is spurring and disc space narrowing throughout the visualized thoracic spine. There is stimulator de vice in the mid thoracic spine partially imaged. OTHER: There is mild to moderate calcified atherosclerotic change of abdominal aorta extending into p elvic branch vessels. Mild soft tissue anasarca is seen in the lateral thigh region bilaterally . Abnormal soft tissue extending to the skin surface left midabdomen axial image 36 is redemonstrated p resumed scar. IMPRESSION: No significant new or acute finding is seen to account for patient's symptoms.
== END | disposition home or self-care (01) ==
LOC: RADNMMAIN 12:47
PROVIDERS: ATTEND Surgery
DX: R10.84 Generalized abdominal pain (principal); Z90.49 Acquired absence of other specified parts of digestive tract
CPT/HCPCS: 74176; 78226; A9537

== ENCOUNTER → 2016-12-18 | Outpatient (CLI) | payer MEDICARE, OTHER ==
--- NOTE | 2016-12-19 12:40 | MM ---
Reason for exam: screening (asymptomatic). Last mammogram was performed 1 year and 1 month ago. History: Patient is postmenopausal and history of other cancer. Family history of breast cancer in maternal aunt. Physical Findings: A clinical breast exam by your physician is recommended on an annual basis and results should be correlated with mammographic findings. MG 3D Screening Mammo W/Cad Bilateral CC and MLO view(s) were taken. Prior study comparison: November 15, 2015, bilateral MG 3d screening mammo w/cad. August 11, 2013, bilateral digital screening mammo w/CAD. Finding: There are typically benign round, linear calcifications in the left breast. There is a chronic nodularity medially in the right breast. There is no discrete abnormality. ASSESSMENT: Benign, BI-RAD 2 RECOMMENDATION: Routine screening mammogram of both breasts in 1 year.
== END | disposition home or self-care (01) ==
LOC: WWCWWP 13:03
PROVIDERS: ATTEND Obstetrics & Gynecology
DX: Z12.31 Encounter for screening mammogram for malignant neoplasm of breast (principal)
CPT/HCPCS: 77063; G0202

== ENCOUNTER → 2016-12-18 | Outpatient (CLI) | payer MEDICARE, OTHER ==
[2016-12-18 17:45] LABS: Appearance,Urine Cloudy (Clear); Bacteria,Urine Moderate /hpf; Bilirubin,Urine 1+ (Negative); Calcium Oxalate Crystals,Urine Moderate /hpf; Glucose,Urine (UA) 4+ (Negative); Ketones,Urine Trace (Negative); Leukocyte Esterase,Urine Moderate (Negative); Mucus,Urine Rare /hpf; Nitrite,Urine Negative (Negative); PH, Urine 5.5 (5.0-8.0); Particle Count 8651; Protein,Urine Trace (Negative); RBC,Urine 5 /hpf (0-5); Specific Gravity,Urine 1.027 (1.001-1.035); Squamous Epithelial Cell,Urine 5 /hpf (0-4); UA Billing (MACRO vs. MICRO) MICRO; WBC,Urine 12 /hpf (0-5)
--- NOTE | 2016-12-19 12:08 | WWHP ---
DATE OF SERVICE: 12/18/2016 CHIEF COMPLAINT: The patient is here for her routine gynecologic exam and mammogram. HPI: This is a 71-year-old G2, P2 with an LMP of 1998. The patient is without gynecologic complaints and denies any postmenopausal bleeding. PAST MEDICAL HISTORY: Type 2 diabetes, chronic back and disc problems, osteoporosis, elevated cholesterol, chronic hypertension, gastroesophageal reflux disease, restless leg syndrome, sarcoidosis, and history of a silent FL in the past. She also had kidney stones and skin cancer. MEDICATIONS: 1. Insulin subQ 4 times daily as directed. 2. Oxybutynin 1 daily. 3. Metformin 500 mg b.i.d. 4. Metoprolol 25 mg daily. 5. Atorvastatin 40 mg daily. 6. Amitriptyline 50 mg daily. 7. Mirapex 0.25 mg 1 to 4 times daily as directed. 8. Clonazepam 0.5 mg daily. 9. Aricept 10 mg daily. 10. Irving 5 mg p.r.n. 11. Tramadol 50 mg p.r.n. 12. Antivert 25 mg p.r.n. 13. Prevacid 30 mg p.r.n. 14. Aspirin 81 mg daily. 15. Vitamin D3 one thousand units daily. 16. Magnesium 500 mg daily. 17. Vitamin B complex and vitamin C complex daily. 18. Multivitamin daily. Allergies to SULFA, REGLAN, ERYTHROMYCIN. Past surgical history is unchanged from the 2015 H&P. 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 SOCIAL HISTORY: She denies tobacco, alcohol and drug uses and has been since 1964. FAMILY HISTORY: It is very limited since she was adopted but she did have an aunt who had breast cancer and a great grandfather who had colon cancer. REVIEW OF SYSTEMS: She has gained about 14 pounds over the last year. She denies respiratory or cardiac problems. GI: Occasional constipation. She denies maltreatment. She has been having problems with falling and has been undergoing evaluation for this. : She has been having more problems with an overactive bladder. She has seen Dr. Diaz for this. Three days ago she noticed blood in her urine and this has resolved since then. She states she did not notice it before that day. PHYSICAL EXAM: Blood pressure 131/70, height 4 feet 10 inches, weight 196 pounds, temperature 98.8, pulse 94. This is a well-developed, heavyset white female who is alert and oriented x3 in no acute distress. HEENT is within normal limits. Neck is supple without mass or thyromegaly. Chest and lungs clear to auscultation. HEART: Regular rate and rhythm. Breasts are without mass or discharge. Axillary exam is negative for adenopathy. Back negative for CVA tenderness. Abdomen is obese, soft, nontender without palpable masses. Pelvic exam, external genitalia reveals mild to moderate atrophy without lesions. Cervix and vagina reveal mild to moderate atrophy without adhesions. There is no evidence of prolapse. The uterus is midposition, no gravid size and nontender. There are no palpable adnexal masses or tenderness. Rectovaginal exam is negative for mass or tenderness but does reveal moderate to large amount of stool in the rectum. The stool is negative for occult blood. Extremities, nontender. IMPRESSION: 1. A 71-year-old menopausal female with unremarkable gynecologic exam. 2. Gross hematuria three days ago per the patient without any significant physical findings at this time. 3. Multiple medical problems. PLAN: 1. PAP smear was deferred since she had a normal one last year. 2. Self-breast examination was discussed. 3. Mammogram was done today. 4. Clean catch midstream urinalysis and culture and sensitivity today. 5. I have recommended that she notify he urologist, Dr. Diaz, of the hematuria noted 3 days ago so he can evaluate this. 6. She will follow up with Dr. Abel for her other medical problems and blood pressure checks. 7. She does get flu shots in the fall. 8. She will return in one year. WILLEM
== END | disposition home or self-care (01) ==
LOC: WWCWWP 13:01
PROVIDERS: ATTEND Obstetrics & Gynecology
DX: R31.0 Gross hematuria (principal)
CPT/HCPCS: 81001; 87086

== ENCOUNTER → 2017-04-05 | Outpatient (CLI) | payer MEDICARE, OTHER ==
--- NOTE | 2017-04-10 10:17 | P.ARTDOP ---
Arterial Doppler LOWER EXTREMITY ARTERIAL DOPPLER: DATE OF SERVICE: 04/05/2017 Reason for study: Bilateral leg pain. Doppler waveforms: Multiphasic bilaterally throughout. Pulse volume recording: Blunting distally only. Pressure gradients: Distal gradients below the knee. Ankle-brachial indices: Greater than 1 on the left and 0.94 on the right.. Toe pressures: 48 on the right, 58 on the left Impression: Suspect moderate distal disease, probably infrapopliteal. Perfusion pressures probably adequate for healing. Clinical correlation recommended..
== END | disposition home or self-care (01) ==
LOC: RADUSWWP 12:42
PROVIDERS: ATTEND Internal Medicine Infectious Disease
DX: M79.604 Pain in right leg (principal); M79.605 Pain in left leg
CPT/HCPCS: 93923

== ENCOUNTER → 2017-06-17 | Outpatient (CLI) | payer MEDICARE, OTHER ==
[2017-06-14 12:16] VITALS: BMI 38.6
[2017-06-17 11:48] VITALS: BP 158/72; PULSE 78; RESP 18
--- NOTE | 2017-06-17 15:38 | P.CONS ---
History of Present Illness - Reason for Consult Consult date: 06/17/17 - History of Present Illness This is 72 years FEMALE with a chronic history of severe low back pain patient diagnosed with postlaminectomy pain syndrome she had more than 12 surgical interventions on her lumbar spine, and all of the interventions failed to control her pain and she continued to have severe low back pain, and 2 years ago she had spinal cord stimulator implanted, which helped for a couple years later on she started having severe low back pain localized in the low back area , the pain intensity interfering with her quality of life and her ability to do activities of daily livings, intensity of the pain without pain medication is 10 over 10 and with the pain medications up to 8/10, she denies any fever or night sweats she denies any change in the bowel movement or urination, Past Medical History Past Medical History: Asthma, Coronary Artery Disease (CAD), Cancer, COPD, CVA/ TIA, Diabetes Mellitus, GERD/Reflux, Hearing Disorder / Deafness, Hyperlipidemia , Hypertension, Liver Disease, Myocardial Infarction ([place]), Osteoarthritis (OA), Pneumonia, Thyroid Disorder Additional Past Medical History / Comment(s): Sarcoidosis, tracheo bronchomalacia, sjogrens syndrome, 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, non alcoholic steatohepatitis, nephrolithiasis, osteoporosis,sciatica, restless leg syndrome, anemia, hx of TIA 2, thyroid nodule, diverticulosis, skin cancer, tracheobronchomalacia, restless leg syndrome, moderate degree of aortic stenosis Last Myocardial Infarction Date:: unknown History of Any Multi-Drug Resistant Organisms: None Reported Past Surgical History: Back Surgery, Cholecystectomy, Heart Catheterization, Tubal Ligation Additional Past Surgical History / Comment(s): several bronchoscopies, cystoscopy , laminectomy total of 13 back sx including implanted pain stimulator, liver biopsy, cataract surgery , liver bx 2008 had ercp /stent in liver, skin ca removed. jonah carpal tunnel done ,heel spurs rt heel . thyroid bx (nodule) RING FINGER RIGHT HAND RIGHT Past Anesthesia/Blood Transfusion Reactions: Motion Sickness Additional Past Anesthesia/Blood Transfusion Reaction / Comm: claustrophobia. NEVER HAD ANY BLOOD TRANSFUSIONS Smoking Status: Never smoker - Past Family History Father History Unknown: Yes Additional Family Medical History / Comment(s): was adopted Mother History Unknown: Yes Family Medical History: Cancer Additional Family Medical History / Comment(s): breast Medications and Allergies Home Medications Medication Instructions Recorded Confirmed Type Multivit with Calcium,Iron,Min 1 tab PO QAM 08/21/13 06/14/17 History [Women's Daily Multivitamin] Magnesium Gluconate [Magonate] 500 mg PO QAM 04/18/15 06/14/17 History clonazePAM [KlonoPIN] 0.5 - 1 mg PO HS PRN 04/18/15 06/14/17 History Amitriptyline HCl [Elavil] 50 mg PO HS 06/24/15 06/14/17 History Aspirin 81 mg PO QAM 06/24/15 06/14/17 History Atorvastatin [Lipitor] 40 mg PO HS 06/24/15 06/14/17 History Cholecalciferol [Vitamin D3] 1,000 unit PO QAM 06/24/15 06/14/17 History Vitamin B Complex W/ Vitamin C 1 tab PO QAM 10/18/16 04/23/17 History predniSONE 5 mg PO DAILY 10/18/16 06/14/17 History Metoprolol Succinate [Toprol XL] 25 mg PO DAILY 02/10/17 06/14/17 History Hydrocodone/Acetaminophen 1 tab PO Q8H PRN 02/11/17 06/14/17 History [Hydrocodone/Acetaminophen 7.5-300] rOPINIRole HCL [Requip] 0.5 mg PO 1700,2200 02/11/17 06/14/17 History Insulin Aspart [NovoLOG SQ AC-SUPPER PRN 04/02/17 04/23/17 History (formulary)] Insulin NPH/Reg Insulin 70/30 35 unit SQ BID 04/02/17 06/14/17 History [humuLIN 70/30 VIAL] Alendronate Sodium [Fosamax] 70 mg PO CURRY 06/14/17 06/14/17 History Furosemide [Lasix] 40 mg PO 0900,1300 06/14/17 06/14/17 History Metolazone [Zaroxolyn] 5 mg PO DAILY 06/14/17 06/14/17 History Potassium Chloride [Klor-Con 20] 20 meq PO DAILY 06/14/17 06/14/17 History Allergies Allergy/AdvReac Type Severity Reaction Status Date / Time erythromycin base Allergy Unknown Rash/Hives Verified 06/14/17 11:51 [Erythromycin Base] metoclopramide HCl Allergy Unknown Rash/Hives Verified 06/14/17 11:51 [From Reglan] Sulfa (Sulfonamide Allergy Unknown Rash/Hives Verified 06/14/17 11:51 Antibiotics) Physical Exam Vitals: Vital Signs Pulse Resp BP Pulse Ox 06/17/17 11:41 78 18 158/72 97 Physical Examinations : 1-Constitutiona : Cooperative , not in acute distress . 2-HEENT : nech ; supple , no Lymphadenopathy , normal thyroid size . eyes : no ptosis , no icterus, no photophobia . ENT : normal of hearing , normal oropharynx , no Thrush . 3- Respiratory : Chest clear to auscultations Bilaterally , no wheezing , no Rhonchi . 4- Cardiovascular : regular rate and rhythem , S1 , S2 , no S3 , no S4. 5- Gastrointestinal : abdomen soft no tenderness , bowel sounds positive all four quadrents , no organomegally . 6- Genitourinary : Defferred . 7- neurologic : Cranial nerve II to XII intact , no focal neurological deffecit . 8-psychatric : alert , oriented X 3 , appropriate affect , intact judgment and insight . 9-Lymphatic : no Lymphadenopathy . 10- musculoskeltal : , Lumber spine = normal moter stegnth lower extremities ,thigh and legs .4/5 deep tendon reflexes : normal Knee Jerk , normal ankle Jerk . lumber facet Loading Test positive strait leg raising test positive at 30 degree Right , positve at 30 degree Left Fabere test positive Right and positive Left Sever tenderness over the Sacroiliac joint on the Right , and Left side Results Comments: Computed tomography scan of the lumbar spine done at [facility] 09/22/2016 showed no fracture no soft tissue abnormalities and bilateral bony fusion appeared to be intact Assessment and Plan Plan: Assessment and plan= chronic severe low back pain secondary to failed back surgery syndrome and lumbar area, bilateral sacroiliitis Patient had a spinal cord stimulator [place] , implanted several years ago and currently is not functioning: Is not covering her low back pain, multiple attempted to reprogram the spinal cord stimulator failed to control the pain, I discussed with the patient the option of doing a caudal epidural steroid injection with lysis of epidural adhesions, versus revision of the spinal cord stimulator, I think patient could benefit from revision( neverone type ) of the spinal cord stimulator, patient will be referred to see , in neurosurgery for evaluation and possible revision , Time with Patient: Greater than 30
== END | disposition home or self-care (01) ==
LOC: PNWHC3 11:06
PROVIDERS: ATTEND Specialist
DX: G89.29 Other chronic pain (principal); M96.1 Postlaminectomy syndrome, not elsewhere classified; M46.1 Sacroiliitis, not elsewhere classified; J45.909 Unspecified asthma, uncomplicated; E11.9 Type 2 diabetes mellitus without complications; I25.10 Atherosclerotic heart disease of native coronary artery without angina pectoris; K21.9 Gastro-esophageal reflux disease without esophagitis; I10 Essential (primary) hypertension; E78.5 Hyperlipidemia, unspecified; Z79.4 Long term (current) use of insulin; Z79.891 Long term (current) use of opiate analgesic; Z79.899 Other long term (current) drug therapy; Z79.82 Long term (current) use of aspirin; Z88.8 Allergy status to other drugs, medicaments and biological substances; Z88.1 Allergy status to other antibiotic agents
CPT/HCPCS: 99211

== ENCOUNTER 2017-07-14 22:21 | Emergency (ER) | payer MEDICARE, OTHER ==
[2017-07-14 22:31] VITALS: RESP 18
[2017-07-14] MEDS ORDERED: MORPHINE SULFATE/PF 10MG/10ML VL IM STA (23:19)
[2017-07-15 02:39] VITALS: BP 155/77; PULSE 80
--- NOTE | 2017-07-15 02:48 | US ---
EXAMINATION TYPE: US venous doppler duplex LE RT DATE OF EXAM: 07/15/2017 2:28 AM COMPARISON: NONE CLINICAL HISTORY: Pain. SIDE PERFORMED: TECHNIQUE: The lower extremity deep venous system is examined utilizing real time linear array sonog song with graded compression, doppler sonography and color-flow sonography. VESSELS IMAGED: External Iliac Vein (EIV) Common Femoral Vein Deep Femoral Vein Greater Saphenous Vein * Femoral Vein Popliteal Vein Small Saphenous Vein * Proximal Calf Veins (* superficial vessels) Right Leg: Negative for DVT IMPRESSION: Normal exam. No evidence of deep venous thrombosis in the right leg.
--- NOTE | 2017-07-15 02:55 | ED ---
Extremity Problem HPI - General Chief complaint: Extremity Problem,Nontraumatic Stated complaint: leg pain-poss blood clot Time Seen by Provider: 07/14/17 22:55 Source: patient Mode of arrival: ambulatory Limitations: no limitations - History of Present Illness MD Complaint: extremity pain Onset/Timin -: days(s) Location: right, lower extremity History of Same: No -: Yes myalgia Radiation: none Quality: dull Consistency: constant Improves with: nothing Worsens with: nothing Associated Symptoms: denies other symptoms - Related Data Home Medications Medication Instructions Recorded Confirmed Multivit with Calcium,Iron,Min 1 tab PO QAM 08/21/13 07/14/17 [Women's Daily Multivitamin] Magnesium Gluconate [Magonate] 500 mg PO QAM 04/18/15 07/14/17 clonazePAM [KlonoPIN] 0.5 - 1 mg PO HS PRN 04/18/15 07/14/17 Amitriptyline HCl [Elavil] 50 mg PO HS 06/24/15 07/14/17 Aspirin 81 mg PO QAM 06/24/15 07/14/17 Atorvastatin [Lipitor] 40 mg PO HS 06/24/15 07/14/17 Cholecalciferol [Vitamin D3] 1,000 unit PO QAM 06/24/15 07/14/17 predniSONE 5 mg PO DAILY 10/18/16 07/14/17 Metoprolol Succinate [Toprol XL] 25 mg PO DAILY 02/10/17 07/14/17 rOPINIRole HCL [Requip] 0.5 - 1 mg PO HS 02/11/17 07/14/17 Insulin Aspart [NovoLOG See Protocol SQ AC-SUPPER PRN 04/02/17 07/14/17 (formulary)] Insulin NPH/Reg Insulin 70/30 35 unit SQ BID 04/02/17 07/14/17 [humuLIN 70/30 VIAL] Alendronate Sodium [Fosamax] 70 mg PO CURRY 06/14/17 07/14/17 Furosemide [Lasix] 40 mg PO BID 06/14/17 07/14/17 Metolazone [Zaroxolyn] 5 mg PO DAILY 06/14/17 07/14/17 Previous Rx's Medication Instructions Recorded Ibuprofen [Motrin] 600 mg PO Q8HR PRN #20 tab 07/15/17 Methocarbamol [Robaxin-750] 750 mg PO TID PRN #30 tablet 07/15/17 predniSONE 60 mg PO DAILY #30 tab 07/15/17 Allergies Allergy/AdvReac Type Severity Reaction Status Date / Time erythromycin base Allergy Unknown Rash/Hives Verified 07/14/17 23:00 [Erythromycin Base] metoclopramide HCl Allergy Unknown Rash/Hives Verified 07/14/17 23:00 [From Reglan] Sulfa (Sulfonamide Allergy Unknown Rash/Hives Verified 07/14/17 23:00 Antibiotics) Review of Systems ROS Statement: Those systems with pertinent positive or pertinent negative responses have been documented in the HPI. ROS Other: All systems not noted in ROS Statement are negative. Constitutional: Denies: fever, chills, weakness Respiratory: Denies: cough, dyspnea, hemoptysis Cardiovascular: Denies: chest pain, palpitations, edema, syncope Gastrointestinal: Denies: abdominal pain Musculoskeletal: Reports: back pain Skin: Denies: rash Neurological: Denies: headache, weakness, numbness, paresthesias Past Medical History Past Medical History: Asthma, Coronary Artery Disease (CAD), Cancer, COPD, CVA/ TIA, Diabetes Mellitus, GERD/Reflux, Hearing Disorder / Deafness, Hyperlipidemia , Hypertension, Liver Disease, Myocardial Infarction ([place]), Osteoarthritis (OA), Pneumonia, Thyroid Disorder Additional Past Medical History / Comment(s): Sarcoidosis, tracheo bronchomalacia, sjogrens syndrome, 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, non alcoholic steatohepatitis, nephrolithiasis, osteoporosis,sciatica, restless leg syndrome, anemia, hx of TIA 2, thyroid nodule, diverticulosis, skin cancer, tracheobronchomalacia, restless leg syndrome, moderate degree of aortic stenosis Last Myocardial Infarction Date:: unknown History of Any Multi-Drug Resistant Organisms: None Reported Past Surgical History: Back Surgery, Cholecystectomy, Heart Catheterization, Tubal Ligation Additional Past Surgical History / Comment(s): several bronchoscopies, cystoscopy , laminectomy total of 13 back sx including implanted pain stimulator, liver biopsy, cataract surgery , liver bx 2008 had ercp /stent in liver, skin ca removed. jonah carpal tunnel done ,heel spurs rt heel . thyroid bx (nodule) RING FINGER RIGHT HAND RIGHT Past Anesthesia/Blood Transfusion Reactions: Motion Sickness Additional Past Anesthesia/Blood Transfusion Reaction / Comment(s): claustrophobia. NEVER HAD ANY BLOOD TRANSFUSIONS Past Psychological History: Anxiety, Depression Smoking Status: Never smoker - Past Family History Father History Unknown: Yes Additional Family Medical History / Comment(s): was adopted Mother History Unknown: Yes Family Medical History: Cancer Additional Family Medical History / Comment(s): breast General Exam Limitations: no limitations General appearance: alert, in no apparent distress Head exam: Present: atraumatic, normocephalic Respiratory exam: Present: normal lung sounds bilaterally. Absent: respiratory distress, wheezes, rales, rhonchi, stridor Cardiovascular Exam: Present: regular rate, normal rhythm, normal heart sounds. Absent: systolic murmur, diastolic murmur, rubs, gallop GI/Abdominal exam: Present: soft. Absent: distended, tenderness, guarding, rebound Extremities exam: Present: normal inspection, normal capillary refill, calf tenderness. Absent: pedal edema Back exam: Present: normal inspection. Absent: CVA tenderness (R), CVA tenderness (L) Neurological exam: Present: alert. Absent: motor sensory deficit Skin exam: Present: warm, dry, intact, normal color. Absent: rash Course Vital Signs 07/14/17 07/15/17 07/15/17 22:28 00:49 02:39 Temperature 100.0 F H 98.5 F 98.1 F Pulse Rate 106 H 100 80 Respiratory 18 18 18 Rate Blood Pressure 133/59 132/76 155/77 O2 Sat by Pulse 96 96 98 Oximetry Medical Decision Making - Medical Decision Making Patient 72-year-old woman with right calf pain. Screening d-dimer is positive, though the exam is not suggestive of DVT. Subsequent duplex Doppler is negative for DVT. Discussed appropriate follow-up and further care including repeat study if the symptoms do not resolve within the next few days, and also return parameters including symptoms and signs suggestive of PE. - Lab Data Lab Results 07/14/17 Range/Units 23:38 D-Dimer 1.00 H (<0.60) mg/L FEU Disposition Clinical Impression: Lumbar radicular pain Disposition: HOME SELF-CARE Condition: Fair Instructions: Lumbar Radiculopathy (ED) Prescriptions: Ibuprofen [Motrin] 600 mg PO Q8HR PRN #20 tab PRN Reason: Pain Methocarbamol [Robaxin-750] 750 mg PO TID PRN #30 tablet PRN Reason: pain predniSONE 60 mg PO DAILY #30 tab Referrals: Harry Abel DO [Primary Care Provider] - 1-2 days
[2017-07-15] MEDS ORDERED: MORPHINE SULFATE/PF 10MG/10ML VL IM STA (02:57)
[2017-07-15] MEDS ORDERED: predniSONE 20 MG TAB PO STA (03:05)
[2017-07-15 03:26] VITALS: TEMP 98.1
== END 2017-07-15 03:35 | disposition home or self-care (01) ==
LOC: EC 22:21
DX: M54.16 Radiculopathy, lumbar region (principal); I25.10 Atherosclerotic heart disease of native coronary artery without angina pectoris; J44.9 Chronic obstructive pulmonary disease, unspecified; E11.9 Type 2 diabetes mellitus without complications; E78.5 Hyperlipidemia, unspecified; I10 Essential (primary) hypertension; I25.2 Old myocardial infarction; G25.81 Restless legs syndrome; F41.9 Anxiety disorder, unspecified; F32.9 Major depressive disorder, single episode, unspecified; Z86.73 Personal history of transient ischemic attack (TIA), and cerebral infarction without residual deficits; Z95.818 Presence of other cardiac implants and grafts; Z85.828 Personal history of other malignant neoplasm of skin; Z79.82 Long term (current) use of aspirin; Z79.52 Long term (current) use of systemic steroids; Z79.4 Long term (current) use of insulin; Z79.899 Other long term (current) drug therapy; Z88.1 Allergy status to other antibiotic agents; Z88.2 Allergy status to sulfonamides; Z88.8 Allergy status to other drugs, medicaments and biological substances
CPT/HCPCS: 36415; 85379; 93971; 99284; J7512; J2270 ×2

== ENCOUNTER 2017-07-30 17:54 | Inpatient (IN) | payer MEDICARE, OTHER ==
[2017-07-30] MEDS ORDERED: IPRATROPIUM-ALBUTEROL 3 ML NEB INHALATION STA (18:11)
[2017-07-30] MEDS ORDERED: SODIUM CHLORIDE 0.9% 1,000 ML IV STA (18:11)
[2017-07-30] MEDS ORDERED: methylPREDNISolone SOD SUCCI 125 MG/2 ML VIAL IV STA (18:11)
--- NOTE | 2017-07-30 18:14 | ED ---
SOB HPI - General Chief Complaint: Shortness of Breath Stated Complaint: SOB Time Seen by Provider: 07/30/17 18:11 Source: patient, RN notes reviewed Mode of arrival: wheelchair Limitations: no limitations - History of Present Illness Initial Comments: This is a 72-year-old female with a history of sarcoidosis and COPD who states she was recently on antibiotics and oral steroids which she finished 2 days ago since that she's got progressively more short of breath and exertional dyspnea he has a cough no production. No fevers chills or sweats. No overt chest pain. She does states she has some edema to her lower extremities she has of a history also of lower extremity wounds are being treated. No other complaints or modifying factors at this time MD Complaint: shortness of breath - Related Data Home Medications Medication Instructions Recorded Confirmed Multivit with Calcium,Iron,Min 1 tab PO QAM 08/21/13 07/30/17 [Women's Daily Multivitamin] Magnesium Gluconate [Magonate] 500 mg PO QAM 04/18/15 07/30/17 clonazePAM [KlonoPIN] 0.5 - 1 mg PO HS PRN 04/18/15 07/30/17 Aspirin 81 mg PO QAM 06/24/15 07/30/17 Atorvastatin [Lipitor] 40 mg PO HS 06/24/15 07/30/17 Cholecalciferol [Vitamin D3] 2,000 unit PO QAM 06/24/15 07/30/17 predniSONE 5 mg PO DAILY 10/18/16 07/30/17 Metoprolol Succinate [Toprol XL] 25 mg PO DAILY 02/10/17 07/30/17 rOPINIRole HCL [Requip] 1 mg PO HS 02/11/17 07/30/17 Insulin Aspart [NovoLOG See Protocol SQ ACHS 04/02/17 07/30/17 (formulary)] Alendronate Sodium [Fosamax] 70 mg PO CURRY 06/14/17 07/30/17 Furosemide [Lasix] 20 - 40 mg PO QAM 06/14/17 07/30/17 Metolazone [Zaroxolyn] 5 mg PO DAILY 06/14/17 07/30/17 Albuterol Inhaler [Ventolin Hfa 2 puff INHALATION RT-BID 07/30/17 07/30/17 Inhaler] Insulin NPH Hum/Reg Insulin Hm 40 unit SQ AC-BID 07/30/17 07/30/17 [Novolin 70-30 100 Unit/ml Vial] Ipratropium Nebulized [Atrovent 0.5 mg INHALATION RT-QID 07/30/17 07/30/17 Nebulized] Pioglitazone [Actos] 15 mg PO HS 07/30/17 07/30/17 Allergies Allergy/AdvReac Type Severity Reaction Status Date / Time erythromycin base Allergy Unknown Rash/Hives Verified 07/30/17 18:32 [Erythromycin Base] metoclopramide HCl Allergy Unknown Rash/Hives Verified 07/30/17 18:32 [From Reglan] Sulfa (Sulfonamide Allergy Unknown Rash/Hives Verified 07/30/17 18:32 Antibiotics) Review of Systems ROS Statement: Those systems with pertinent positive or pertinent negative responses have been documented in the HPI. ROS Other: All systems not noted in ROS Statement are negative. 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, non alcoholic steatohepatitis, nephrolithiasis, osteoporosis,sciatica, restless leg syndrome, anemia, hx of TIA 2, thyroid nodule, diverticulosis, skin cancer, tracheobronchomalacia, restless leg syndrome, moderate degree of aortic stenosis Last Myocardial Infarction Date:: unknown History of Any Multi-Drug Resistant Organisms: None Reported Past Surgical History: Back Surgery, Cholecystectomy, Heart Catheterization, Tubal Ligation Additional Past Surgical History / Comment(s): several bronchoscopies, cystoscopy , laminectomy total of 13 back sx including implanted pain stimulator, liver biopsy, cataract surgery , liver bx 2008 had ercp /stent in liver, skin ca removed. jonah carpal tunnel done ,heel spurs rt heel . thyroid bx (nodule) RING FINGER RIGHT HAND RIGHT Past Anesthesia/Blood Transfusion Reactions: Motion Sickness Additional Past Anesthesia/Blood Transfusion Reaction / Comment(s): claustrophobia. NEVER HAD ANY BLOOD TRANSFUSIONS Past Psychological History: Anxiety, Depression Smoking Status: Never smoker Past Alcohol Use History: None Reported Past Drug Use History: None Reported - Past Family History Father History Unknown: Yes Additional Family Medical History / Comment(s): was adopted Mother History Unknown: Yes Family Medical History: Cancer Additional Family Medical History / Comment(s): breast General Exam - General Exam Comments Initial Comments: Pezzer well-developed well-nourished awake alert oriented 3 female Limitations: no limitations General appearance: alert, in distress Head exam: Present: atraumatic, normocephalic, normal inspection Eye exam: Present: normal appearance, PERRL, EOMI. Absent: scleral icterus, conjunctival injection, periorbital swelling ENT exam: Present: normal exam, mucous membranes moist Neck exam: Present: normal inspection. Absent: tenderness, meningismus, lymphadenopathy Respiratory exam: Present: wheezes, decreased breath sounds, other (Some right lower lobe rhonchi). Absent: respiratory distress, rales, rhonchi, stridor Cardiovascular Exam: Present: normal rhythm, tachycardia, normal heart sounds. Absent: systolic murmur, diastolic murmur, rubs, gallop, clicks GI/Abdominal exam: Present: soft, normal bowel sounds. Absent: distended, tenderness, guarding, rebound, rigid Extremities exam: Present: normal inspection, full ROM, normal capillary refill , pedal edema. Absent: tenderness, joint swelling, calf tenderness Back exam: Present: normal inspection Neurological exam: Present: alert, oriented X3, CN II-XII intact Psychiatric exam: Present: normal affect, normal mood Skin exam: Present: warm, dry, intact, normal color. Absent: rash Course Vital Signs 07/30/17 07/30/17 07/30/17 17:56 18:26 18:33 Temperature 97.7 F Pulse Rate 106 H 96 Respiratory 24 24 Rate Blood Pressure 143/64 O2 Sat by Pulse 95 Oximetry 07/30/17 07/30/17 07/30/17 18:36 18:39 19:00 Temperature Pulse Rate 93 91 95 Respiratory 22 Rate Blood Pressure 147/65 O2 Sat by Pulse 96 98 Oximetry 07/30/17 07/30/17 20:00 21:02 Temperature Pulse Rate 117 H Respiratory 20 22 Rate Blood Pressure 137/82 O2 Sat by Pulse 96 Oximetry - Reevaluation(s) Reevaluation #1: 07/30/17 21:40 Reevaluation patient reveals some improvement in her breathing she has have elevation of troponin she's had no complaints of chest pain. She will be admitted I did discuss case with Dr. Will who did come the emergency department see the patient. Medical Decision Making - Medical Decision Making Patient does demonstrate evidence of COPD exacerbation some evidence of fluid overload though the BNP is within normal limits. - Lab Data Result diagrams: 07/30/17 18:18 07/30/17 18:18 Lab Results 07/30/17 07/30/17 07/30/17 Range/Units 18:18 18:18 18:18 WBC 9.1 (3.8-10.6) k/uL RBC 4.47 (3.80-5.40) m/uL Hgb 14.1 (11.4-16.0) gm/dL Hct 44.6 (34.0-46.0) % MCV 99.6 (80.0-100.0) fL MCH 31.5 (25.0-35.0) pg MCHC 31.7 (31.0-37.0) g/dL RDW 14.4 (11.5-15.5) % Plt Count 120 L (150-450) k/uL Neutrophils % 92 % Lymphocytes % 3 % Monocytes % 4 % Eosinophils % 0 % Basophils % 0 % Neutrophils # 8.4 H (1.3-7.7) k/uL Lymphocytes # 0.3 L (1.0-4.8) k/uL Monocytes # 0.4 (0-1.0) k/uL Eosinophils # 0.0 (0-0.7) k/uL Basophils # 0.0 (0-0.2) k/uL Hypochromasia Moderate Macrocytosis Slight PT (9.0-12.0) sec INR (<1.2) APTT (22.0-30.0) sec Sodium 144 (137-145) mmol/L Potassium 4.5 (3.5-5.1) mmol/L Chloride 108 H (98-107) mmol/L Carbon Dioxide 24 (22-30) mmol/L Anion Gap 12 mmol/L BUN 37 H (7-17) mg/dL Creatinine 0.61 (0.52-1.04) mg/dL Est GFR (CKD-EPI)AfAm >90 (>60 ml/min/1.73 sqM) Est GFR (CKD-EPI)NonAf >90 (>60 ml/min/1.73 sqM) Glucose 292 H (74-99) mg/dL Calcium 9.5 (8.4-10.2) mg/dL Magnesium 1.9 (1.6-2.3) mg/dL Total Bilirubin 1.1 (0.2-1.3) mg/dL AST 36 (14-36) U/L ALT 43 (9-52) U/L Alkaline Phosphatase 126 (38-126) U/L Total Creatine Kinase 114 (30-135) U/L CK-MB (CK-2) 2.9 H* (0.0-2.4) ng/mL CK-MB (CK-2) Rel Index 2.5 Troponin I 0.069 H* (0.000-0.034) ng/mL NT-Pro-B Natriuret Pep pg/mL Total Protein 6.0 L (6.3-8.2) g/dL Albumin 3.2 L (3.5-5.0) g/dL 07/30/17 07/30/17 Range/Units 19:59 19:59 WBC (3.8-10.6) k/uL RBC (3.80-5.40) m/uL Hgb (11.4-16.0) gm/dL Hct (34.0-46.0) % MCV (80.0-100.0) fL MCH (25.0-35.0) pg MCHC (31.0-37.0) g/dL RDW (11.5-15.5) % Plt Count (150-450) k/uL Neutrophils % % Lymphocytes % % Monocytes % % Eosinophils % % Basophils % % Neutrophils # (1.3-7.7) k/uL Lymphocytes # (1.0-4.8) k/uL Monocytes # (0-1.0) k/uL Eosinophils # (0-0.7) k/uL Basophils # (0-0.2) k/uL Hypochromasia Macrocytosis PT 11.0 (9.0-12.0) sec INR 1.1 (<1.2) APTT 21.0 L (22.0-30.0) sec Sodium (137-145) mmol/L Potassium (3.5-5.1) mmol/L Chloride (98-107) mmol/L Carbon Dioxide (22-30) mmol/L Anion Gap mmol/L BUN (7-17) mg/dL Creatinine (0.52-1.04) mg/dL Est GFR (CKD-EPI)AfAm (>60 ml/min/1.73 sqM) Est GFR (CKD-EPI)NonAf (>60 ml/min/1.73 sqM) Glucose (74-99) mg/dL Calcium (8.4-10.2) mg/dL Magnesium (1.6-2.3) mg/dL Total Bilirubin (0.2-1.3) mg/dL AST (14-36) U/L ALT (9-52) U/L Alkaline Phosphatase (38-126) U/L Total Creatine Kinase (30-135) U/L CK-MB (CK-2) (0.0-2.4) ng/mL CK-MB (CK-2) Rel Index Troponin I (0.000-0.034) ng/mL NT-Pro-B Natriuret Pep 480 pg/mL Total Protein (6.3-8.2) g/dL Albumin (3.5-5.0) g/dL - EKG Data -: EKG Interpreted by Mi EKG shows normal: sinus rhythm (Sinus rhythm rate of 93. Interval 146 QRS duration 100 QT since QTC of 360/457 left exodeviation poor R-wave progression.) - Radiology Data Radiology results: report reviewed (X-ray does show evidence of congestive failure.), image reviewed Critical Care Time Critical Care Time: Yes Critical Care Time: 31 minutes of critical care time which includes initial presentation with history physical labs x-rays reevaluation patient responsive therapy discuss with the patient regarding the findings discussed with the beta physician admission orders and documentation of the above Disposition Clinical Impression: Acute exacerbation of chronic obstructive airways disease, Adult respiratory distress syndrome, Failure of outpatient treatment, Pulmonary vascular congestion Disposition: ADMITTED IP TO THIS HOSP Condition: Stable Referrals: Antonio Bernstein DO [Primary Care Provider] - 1-2 days
--- NOTE | 2017-07-30 18:56 | XR ---
EXAMINATION TYPE: XR chest 2V DATE OF EXAM: 07/30/2017 COMPARISON: 10/18/2016 HISTORY: Short of breath TECHNIQUE: Frontal and lateral views of the chest are obtained. FINDINGS: There is pulmonary interstitial and alveolar edema. There is slight blunting of the costop hrenic angles. There are chest leads. There is neurostimulator in the thoracic spine. IMPRESSION: There is congestive heart failure and pulmonary edema that is essentially new compared t o old exam.
[2017-07-30 19:03] LABS: Basophils % (A) 0 %; Eosinophils % (A) 0 %; HCT 44.6 % (34.0-46.0); HGB 14.1 gm/dL (11.4-16.0); Hypochromasia Moderate; Lymphocytes # (A) 0.3 k/uL (1.0-4.8); Lymphocytes % (A) 3 %; MCH 31.5 pg (25.0-35.0); MCHC 31.7 g/dL (31.0-37.0); MCV 99.6 fL (80.0-100.0); Macrocytosis Slight; Mean Platelet Volume 7.7; Monocytes # (A) 0.4 k/uL (0-1.0); Monocytes % (A) 4 %; Neutrophils # (A) 8.4 k/uL (1.3-7.7); Neutrophils % (A) 92 %; Platelet Count 120 k/uL (150-450); RBC 4.47 m/uL (3.80-5.40); RDW 14.4 % (11.5-15.5); WBC 9.1 k/uL (3.8-10.6)
[2017-07-30 19:05] LABS: ALT 43 U/L (9-52); AST 36 U/L (14-36); Albumin 3.2 g/dL (3.5-5.0); Alkaline Phosphatase 126 U/L (38-126); Anion Gap 12 mmol/L; Blood Urea Nitrogen 37 mg/dL (7-17); Calcium 9.5 mg/dL (8.4-10.2); Carbon Dioxide 24 mmol/L (22-30); Chloride 108 mmol/L (98-107); Glucose 292 mg/dL (74-99); Magnesium 1.9 mg/dL (1.6-2.3); Potassium 4.5 mmol/L (3.5-5.1); Sodium 144 mmol/L (137-145); Total Bilirubin 1.1 mg/dL (0.2-1.3)
[2017-07-30 19:30] LABS: Creatine Kinase MB 2.9 ng/mL (0.0-2.4); Troponin I 0.069 ng/mL (0.000-0.034)
[2017-07-30] MEDS ORDERED: HYDROcodone/APAP 7.5-325MG 1 EACH TAB PO ONE (20:50)
[2017-07-30] MEDS ORDERED: IBUPROFEN 600 MG TAB PO STA (20:52)
[2017-07-30 20:53] LABS: INR 1.1 (<1.2)
[2017-07-30] MEDS ORDERED: FUROSEMIDE 10 MG/ML 4 ML VIAL IV STA (21:39)
[2017-07-30] MEDS ORDERED: NITROGLYCERIN SL TABS 0.4 MG TAB SUBLINGUAL PRN (21:56)
[2017-07-31] MEDS ORDERED: IPRATROPIUM-ALBUTEROL 3 ML NEB INHALATION SCH
[2017-07-31 00:11] LABS: Glucose,Whole Blood 261 mg/dL (75-99)
[2017-07-31] MEDS ORDERED: IPRATROPIUM-ALBUTEROL 3 ML NEB INHALATION PRN (00:30)
[2017-07-31] MEDS: INSULIN ASPART 100 UNIT/ML 1 ML 10 ML VIAL SQ SCH ×5 (00:44→20:58)
[2017-07-31 01:14] VITALS: BMI 42.2
[2017-07-31 01:41] LABS: Creatine Kinase MB 3.3 ng/mL (0.0-2.4); Troponin I 0.098 ng/mL (0.000-0.034)
--- NOTE | 2017-07-31 02:41 | P.HPIM ---
History of Present Illness H&P Date: 07/30/17 Chief Complaint: Shortness of breath Patient is a 72-year-old female with a known history of COPD, sarcoidosis, tracheobronchomalacia, Sjogren's syndrome, history of [place], hypertension, diabetes type 2 and multiple other medical problems came to ER with complaints of worsening shortness of breath and exertional dyspnea. Patient also having cough without much sputum production. Patient follows with Dr. Bernstein in the clinic. Patient recently completed steroid tapering dose about 2 days ago. Patient is on prednisone 5 mg daily as a maintenance dose. Otherwise patient denied any fever or chills. No chest pain. Patient does have chronic lower extremity edema and was recently treated for lower extremity wounds and cellulitis. BNP 480 Troponin 0.069 and 0.091 Chest x-ray showed congestive heart failure and pulmonary edema new compared to previous exam EKG showed normal sinus rhythm Review of Systems Constitutional: Patient denies any fever or chills . No generalized weakness or weight loss. Abdomen: Patient denied nausea vomiting and diarrhea and abdominal pain. Cardiovascular: Patient denies any chest pain or short of breath no palpitations. Respiratory: Cough with minimal sputum production and shortness of breath Neurologic: Patient denied any numbness or tingling headache. Musculoskeletal: Patient denies any complaints of joint swelling or deformity. Skin: Negative Psychiatric: Negative Endocrine: No heat or cold intolerance. No recent weight gain. Genitourinary: No dysuria or hematuria. 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, non alcoholic steatohepatitis, nephrolithiasis, osteoporosis,sciatica, restless leg syndrome, anemia, hx of TIA 2, thyroid nodule, diverticulosis, skin cancer, tracheobronchomalacia, restless leg syndrome, moderate degree of aortic stenosis Last Myocardial Infarction Date:: unknown History of Any Multi-Drug Resistant Organisms: None Reported Past Surgical History: Back Surgery, Cholecystectomy, Heart Catheterization, Tubal Ligation Additional Past Surgical History / Comment(s): several bronchoscopies, cystoscopy , laminectomy total of 13 back sx including implanted pain stimulator, liver biopsy, cataract surgery , liver bx 2008 had ercp /stent in liver, skin ca removed. jonah carpal tunnel done ,heel spurs rt heel . thyroid bx (nodule) RING FINGER RIGHT HAND RIGHT Past Anesthesia/Blood Transfusion Reactions: Motion Sickness Additional Past Anesthesia/Blood Transfusion Reaction / Comment(s): claustrophobia. NEVER HAD ANY BLOOD TRANSFUSIONS Past Psychological History: Anxiety, Depression Smoking Status: Never smoker Past Alcohol Use History: None Reported Past Drug Use History: None Reported - Past Family History Father History Unknown: Yes Additional Family Medical History / Comment(s): was adopted Mother History Unknown: Yes Family Medical History: Cancer Additional Family Medical History / Comment(s): breast Medications and Allergies Home Medications Medication Instructions Recorded Confirmed Type Multivit with Calcium,Iron,Min 1 tab PO QAM 08/21/13 07/30/17 History [Women's Daily Multivitamin] Magnesium Gluconate [Magonate] 500 mg PO QAM 04/18/15 07/30/17 History clonazePAM [KlonoPIN] 0.5 - 1 mg PO HS PRN 04/18/15 07/30/17 History Aspirin 81 mg PO QAM 06/24/15 07/30/17 History Atorvastatin [Lipitor] 40 mg PO HS 06/24/15 07/30/17 History Cholecalciferol [Vitamin D3] 2,000 unit PO QAM 06/24/15 07/30/17 History predniSONE 5 mg PO DAILY 10/18/16 07/30/17 History Metoprolol Succinate [Toprol XL] 25 mg PO DAILY 02/10/17 07/30/17 History rOPINIRole HCL [Requip] 1 mg PO HS 02/11/17 07/30/17 History Insulin Aspart [NovoLOG See Protocol SQ ACHS 04/02/17 07/30/17 History (formulary)] Alendronate Sodium [Fosamax] 70 mg PO CURRY 06/14/17 07/30/17 History Furosemide [Lasix] 20 - 40 mg PO QAM 06/14/17 07/30/17 History Metolazone [Zaroxolyn] 5 mg PO DAILY 06/14/17 07/30/17 History Albuterol Inhaler [Ventolin Hfa 2 puff INHALATION RT-BID 07/30/17 07/30/17 History Inhaler] Insulin NPH Hum/Reg Insulin Hm 40 unit SQ AC-BID 07/30/17 07/30/17 History [Novolin 70-30 100 Unit/ml Vial] Ipratropium Nebulized [Atrovent 0.5 mg INHALATION RT-QID 07/30/17 07/30/17 History Nebulized] Pioglitazone [Actos] 15 mg PO HS 07/30/17 07/30/17 History Ibuprofen [Motrin] 600 mg PO Q8HR PRN 07/31/17 07/31/17 History Allergies Allergy/AdvReac Type Severity Reaction Status Date / Time erythromycin base Allergy Unknown Rash/Hives Verified 07/31/17 01:04 [Erythromycin Base] metoclopramide HCl Allergy Unknown Rash/Hives Verified 07/31/17 01:04 [From Reglan] Sulfa (Sulfonamide Allergy Unknown Rash/Hives Verified 07/31/17 01:04 Antibiotics) Physical Exam Vitals: Vital Signs Temp Pulse Resp BP Pulse Ox 07/30/17 21:02 117 H 22 137/82 96 07/30/17 20:00 20 07/30/17 19:00 95 22 147/65 98 07/30/17 18:39 91 96 07/30/17 18:36 93 07/30/17 18:33 24 07/30/17 18:26 96 07/30/17 17:56 97.7 F 106 H 24 143/64 95 Intake and Output 07/30/17 07/30/17 07/30/17 06:59 14:59 22:59 Other: Weight 91.626 kg PHYSICAL EXAMINATION: Patient is lying in the bed comfortably, no acute distress, awake alert and oriented.. HEENT: Normocephalic. Neck is supple. Pupils reactive. Nostrils clear. Oral cavity is moist. Ears reveal no drainage. Neck reveals no JVD, carotid bruits, or thyromegaly. CHEST EXAMINATION: Trachea is central. Symmetrical expansion. Bilateral diminished air entry with expiratory wheezing CARDIAC: Normal S1, S2 with no gallops. No murmurs ABDOMEN: Soft. Bowel sounds normal. No organomegaly. No abdominal bruits. Extremities: 2+ edema bilaterally with some redness noted. No clubbing or cyanosis Neurologically awake, alert, oriented x3 with well-coordinated movements. No focal deficits noted Skin: No rash or skin lesions. Psychiatric: Coperative. Nonsuicidal Musculoskeletal: No joint swelling or deformity. Normal range of motion. Results CBC & Chem 7: 07/30/17 18:18 07/30/17 18:18 Labs: Abnormal Lab Results - Last 24 Hours (Table) 07/30/17 07/30/17 07/30/17 Range/Units 18:18 18:18 18:18 Plt Count 120 L (150-450) k/uL Neutrophils # 8.4 H (1.3-7.7) k/uL Lymphocytes # 0.3 L (1.0-4.8) k/uL APTT (22.0-30.0) sec Chloride 108 H (98-107) mmol/L BUN 37 H (7-17) mg/dL Glucose 292 H (74-99) mg/dL CK-MB (CK-2) 2.9 H* (0.0-2.4) ng/mL Troponin I 0.069 H* (0.000-0.034) ng/mL Total Protein 6.0 L (6.3-8.2) g/dL Albumin 3.2 L (3.5-5.0) g/dL 07/30/17 Range/Units 19:59 Plt Count (150-450) k/uL Neutrophils # (1.3-7.7) k/uL Lymphocytes # (1.0-4.8) k/uL APTT 21.0 L (22.0-30.0) sec Chloride (98-107) mmol/L BUN (7-17) mg/dL Glucose (74-99) mg/dL CK-MB (CK-2) (0.0-2.4) ng/mL Troponin I (0.000-0.034) ng/mL Total Protein (6.3-8.2) g/dL Albumin (3.5-5.0) g/dL Thrombosis Risk Factor Assmnt - DVT/VTE Prophylaxis DVT/VTE Prophylaxis: Pharmacologic Prophylaxis ordered Assessment and Plan Assessment: Acute COPD exacerbation Pulmonary vascular congestion Sarcoidosis Troponin leak unlikely acute coronary syndrome Chronic lower extremity edema and recent cellulitis Hypertension diabetes type 2 History of CVA/TIA GERD hearing disorder Hyperlipidemia History of [place] Hypothyroidism Tracheobronchomalacia Sjogrens syndrome Chronic inflammatory demyelinating polyneuropathy Moderate aortic stenosis Restless leg syndrome Osteoporosis Nonalcoholic hepatic steatosis with history of liver biopsy Anxiety and depression and claustrophobia DVT prophylaxis Plan: Patient be continued on IV steroids and breathing treatments. Patient was given IV Lasix 40 mg 1 in the ER. We'll continue with the Lasix and metolazone. Repeat chest x-ray tomorrow. Pulmonary was consulted. Continue with home medications and further recommendations based on the clinical course. Prognosis is guarded with multiple medical problems and comorbid conditions and complications. Time with Patient: Greater than 30
[2017-07-31] MEDS: methylPREDNISolone SOD SUCCI 125 MG/2 ML VIAL IV SCH ×3 (05:24→12:04)
[2017-07-31 06:16] LABS: Glucose,Whole Blood 290 mg/dL (75-99)
[2017-07-31] MEDS ORDERED: HYDROcodone/APAP 7.5-325MG 1 EACH TAB PO PRN (06:31)
[2017-07-31] MEDS: HYDROcodone/APAP 7.5-325MG 1 EACH TAB PO PRN ×3 (06:38→20:45)
[2017-07-31 07:06] LABS: Cholesterol 123 mg/dL (<200); HDL Cholesterol 85 mg/dL (40-60); LDL Cholesterol,Calculated 29 mg/dL (0-99); Triglycerides 45 mg/dL (<150)
[2017-07-31] MEDS: INSULIN NPH/REG INSULIN 70/30 300 UNIT/3 ML VIAL SQ SCH ×2 (07:10→17:21)
[2017-07-31 07:29] LABS: Creatine Kinase MB 2.9 ng/mL (0.0-2.4); Troponin I 0.079 ng/mL (0.000-0.034)
[2017-07-31] MEDS ORDERED: INSULIN ASPART 100 UNIT/ML 1 ML 10 ML VIAL SQ SCH (07:30)
[2017-07-31] MEDS ORDERED: BUDESONIDE 0.5 MG/2 ML NEBU INHALATION SCH (08:00)
[2017-07-31] MEDS: HEPARIN SODIUM,PORCINE 5,000 UNIT/ML 1 ML VIAL SQ SCH ×2 (08:20→17:21)
[2017-07-31] MEDS: METOPROLOL SUCCINATE (ER) 25 MG TAB.ER.24H PO SCH (08:21)
[2017-07-31] MEDS: CHOLECALCIFEROL 1,000 UNIT TAB PO SCH (08:21)
[2017-07-31] MEDS: METOLAZONE 5 MG TAB PO SCH (08:21)
[2017-07-31] MEDS: MULTIVITAMINS, THERA 1 EACH TAB PO SCH (08:21)
[2017-07-31] MEDS: ASPIRIN 81 MG PO SCH (08:21)
[2017-07-31] MEDS: IPRATROPIUM-ALBUTEROL 3 ML NEB INHALATION SCH ×4 (08:26→20:37)
--- NOTE | 2017-07-31 08:26 | XR ---
EXAMINATION TYPE: XR chest 1V DATE OF EXAM: 07/31/2017 CLINICAL HISTORY: Difficulty breathing progress study. TECHNIQUE: Single AP portable frontal view of the chest is obtained. COMPARISON: Chest x-ray from one day earlier and older study October 18, 2016. FINDINGS: There is partial visualization of surgical change in the cervical and lumbar spine. There is persistent mild cardiomegaly with central bilateral opacities. No large pleural effusion or pneumo thorax is seen bilaterally. Underlying scoliosis in the lumbar spine is redemonstrated. IMPRESSION: Overall stable findings from one day earlier, correlate for CHF exacerbation as there i s cardiomegaly with central vascular congestion and bilateral central alveolar edema felt present. Co rrelate clinically.
[2017-07-31] MEDS ORDERED: FUROSEMIDE 40 MG TAB PO SCH (09:00)
[2017-07-31] MEDS ORDERED: MAGNESIUM OXIDE 400 MG TAB PO SCH (09:00)
[2017-07-31] MEDS: IBUPROFEN 600 MG TAB PO PRN (10:35)
[2017-07-31 11:53] LABS: Glucose,Whole Blood 286 mg/dL (75-99)
--- NOTE | 2017-07-31 12:01 | P.CNPUL ---
History of Present Illness Consult date: 07/31/17 Reason for consult: dyspnea, hypoxemia, abnormal CXR/CT, other Chief complaint: Shortness of breath History of present illness: Consult dated 07/31/2017 This is a 72-year-old female well-known to me. She has a history of COPD and sarcoidosis. The patient came into the emergency room complaining of a couple days with of increasing shortness of breath. She recently seen myself in the office and was treated with some antibiotics and steroids for COPD exacerbation. She states that on Saturday she started getting worse and started developing some increasing shortness of breath. No fever chills or sweats. No chest pain or chest discomfort. She was just feeling very very short of breath. She was brought into the emergency department she was found to have probable CHF. She also had significant lower extremity edema. She continues with chronic pain syndrome. Had a long time. In addition to COPD and sarcoidosis, which is currently inactive, she does have a history of hyperlipidemia hypertension osteoporosis chronic back pain and diabetes. ALLERGIES include erythromycin and Reglan and sulfa antibiotics. The patient is currently feeling better today than she did yesterday. A bit tearful. Wearing nasal O2. We did tell her that her chest x-ray in our opinion looks to be heart failure in origin. Her troponins were mildly elevated in her N- terminal pro BNP was only modestly abnormal. Review of Systems A 12 point review of system is positive for progressive and worsening shortness of breath as well as swelling in the abdominal area and lower extremity edema. 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, non alcoholic steatohepatitis, nephrolithiasis, osteoporosis,sciatica, restless leg syndrome, anemia, hx of TIA 2, thyroid nodule, diverticulosis, skin cancer, tracheobronchomalacia, restless leg syndrome, moderate degree of aortic stenosis Last Myocardial Infarction Date:: unknown History of Any Multi-Drug Resistant Organisms: None Reported Past Surgical History: Back Surgery, Cholecystectomy, Heart Catheterization, Tubal Ligation Additional Past Surgical History / Comment(s): several bronchoscopies, cystoscopy , laminectomy total of 13 back sx including implanted pain stimulator, liver biopsy, cataract surgery , liver bx 2008 had ercp /stent in liver, skin ca removed. jonah carpal tunnel done ,heel spurs rt heel . thyroid bx (nodule) RING FINGER RIGHT HAND RIGHT Past Anesthesia/Blood Transfusion Reactions: Motion Sickness Additional Past Anesthesia/Blood Transfusion Reaction / Comment(s): claustrophobia. NEVER HAD ANY BLOOD TRANSFUSIONS Past Psychological History: Anxiety, Depression Smoking Status: Never smoker Past Alcohol Use History: None Reported Past Drug Use History: None Reported - Past Family History Father History Unknown: Yes Additional Family Medical History / Comment(s): was adopted Mother History Unknown: Yes Family Medical History: Cancer Additional Family Medical History / Comment(s): breast Medications and Allergies Home Medications Medication Instructions Recorded Confirmed Type Multivit with Calcium,Iron,Min 1 tab PO QAM 08/21/13 07/30/17 History [Women's Daily Multivitamin] Magnesium Gluconate [Magonate] 500 mg PO QAM 04/18/15 07/30/17 History clonazePAM [KlonoPIN] 0.5 - 1 mg PO HS PRN 04/18/15 07/30/17 History Aspirin 81 mg PO QAM 06/24/15 07/30/17 History Atorvastatin [Lipitor] 40 mg PO HS 06/24/15 07/30/17 History Cholecalciferol [Vitamin D3] 2,000 unit PO QAM 06/24/15 07/30/17 History predniSONE 5 mg PO DAILY 10/18/16 07/30/17 History Metoprolol Succinate [Toprol XL] 25 mg PO DAILY 02/10/17 07/30/17 History rOPINIRole HCL [Requip] 1 mg PO HS 02/11/17 07/30/17 History Insulin Aspart [NovoLOG See Protocol SQ ACHS 04/02/17 07/30/17 History (formulary)] Alendronate Sodium [Fosamax] 70 mg PO CURRY 06/14/17 07/30/17 History Furosemide [Lasix] 20 - 40 mg PO QAM 06/14/17 07/30/17 History Metolazone [Zaroxolyn] 5 mg PO DAILY 06/14/17 07/30/17 History Albuterol Inhaler [Ventolin Hfa 2 puff INHALATION RT-BID 07/30/17 07/30/17 History Inhaler] Insulin NPH Hum/Reg Insulin Hm 40 unit SQ AC-BID 07/30/17 07/30/17 History [Novolin 70-30 100 Unit/ml Vial] Ipratropium Nebulized [Atrovent 0.5 mg INHALATION RT-QID 07/30/17 07/30/17 History Nebulized] Pioglitazone [Actos] 15 mg PO HS 07/30/17 07/30/17 History HYDROcodone/APAP 7.5-325MG [Hydro 1 tab PO Q4-6H 07/31/17 07/31/17 History 7.5-325] Ibuprofen [Motrin] 600 mg PO Q8HR PRN 07/31/17 07/31/17 History Allergies Allergy/AdvReac Type Severity Reaction Status Date / Time erythromycin base Allergy Unknown Rash/Hives Verified 07/31/17 01:04 [Erythromycin Base] metoclopramide HCl Allergy Unknown Rash/Hives Verified 07/31/17 01:04 [From Reglan] Sulfa (Sulfonamide Allergy Unknown Rash/Hives Verified 07/31/17 01:04 Antibiotics) Physical Exam Osteopathic Statement: *. No significant issues noted on an osteopathic structural exam other than those noted in the History and Physical/Consult. Vitals: Vital Signs Temp Pulse Pulse Resp BP BP Pulse Ox 07/31/17 11:00 97.3 F L 91 18 125/58 98 07/31/17 08:42 92 07/31/17 08:28 88 07/31/17 08:20 96.6 F L 89 18 127/58 98 07/31/17 04:20 97.9 F 87 19 134/62 92 L 07/31/17 04:15 91 19 07/31/17 00:42 93 07/31/17 00:30 93 07/30/17 23:20 91 19 07/30/17 23:05 98.6 F 91 19 144/61 95 07/30/17 22:43 97.6 F 86 20 119/57 97 07/30/17 21:02 117 H 22 137/82 96 07/30/17 20:00 20 07/30/17 19:00 95 22 147/65 98 07/30/17 18:39 91 96 07/30/17 18:36 93 07/30/17 18:33 24 07/30/17 18:26 96 07/30/17 17:56 97.7 F 106 H 24 143/64 95 Intake and Output 07/30/17 07/31/17 07/31/17 22:59 06:59 14:59 Intake Total 490 360 Balance 490 360 Intake: IV 10 0.9 10 Oral 480 360 Other: Voiding Method Toilet Toilet Diaper Diaper # Voids 3 Weight 91.626 kg 93.8 kg No acute distress, oriented 3, tearful, nasal O2 in place. HEENT examination is grossly unremarkable. Mucous membranes are moist. No oral lesions. Neck supple. Full range of motion. No adenopathy thyromegaly or neck vein distention. Cardiovascular examination reveals regular rhythm rate. S1-S2 normal. No S3 or S4. No discernible murmur noted. Lungs reveal a few scattered rhonchi and crackles. Breath sounds are diminished. No wheezes are noted. Breath sounds are equal bilaterally. Abdomen soft bowel sounds are heard. No masses or tenderness. Abdomen somewhat distended. Extremities are intact. No cyanosis or clubbing. There is significant lower extremity edema, at least 2+ pitting. Skin is without rash or lesion. Neurologic examination is brief but nonfocal. Results - Laboratory Findings CBC and BMP: 07/30/17 18:18 07/30/17 18:18 PT/INR, D-dimer PT 11.0 sec (9.0-12.0) 07/30/17 19:59 INR 1.1 (<1.2) 07/30/17 19:59 Abnormal lab findings: Abnormal Labs 07/30/17 07/30/17 07/30/17 18:18 18:18 18:18 Plt Count 120 L Neutrophils # 8.4 H Lymphocytes # 0.3 L APTT Chloride 108 H BUN 37 H Glucose 292 H POC Glucose (mg/dL) CK-MB (CK-2) 2.9 H* Troponin I 0.069 H* Total Protein 6.0 L Albumin 3.2 L HDL Cholesterol 07/30/17 07/31/17 07/31/17 19:59 00:09 00:12 Plt Count Neutrophils # Lymphocytes # APTT 21.0 L Chloride BUN Glucose POC Glucose (mg/dL) 261 H CK-MB (CK-2) 3.3 H* Troponin I 0.098 H* Total Protein Albumin HDL Cholesterol 07/31/17 07/31/17 07/31/17 06:04 06:04 06:15 Plt Count Neutrophils # Lymphocytes # APTT Chloride BUN Glucose POC Glucose (mg/dL) 290 H CK-MB (CK-2) 2.9 H* Troponin I 0.079 H* Total Protein Albumin HDL Cholesterol 85 H 07/31/17 11:27 Plt Count Neutrophils # Lymphocytes # APTT Chloride BUN Glucose POC Glucose (mg/dL) 286 H CK-MB (CK-2) Troponin I Total Protein Albumin HDL Cholesterol - Diagnostic Findings Chest x-ray: image reviewed (Chest x-ray labs and medications are reviewed.) Assessment and Plan Assessment: Assessment Shortness of breath, likely secondary to CHF exacerbation although, her COPD could be a component as well. Don't suspect infection at this time. Sarcoid is inactive. 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 Plan: Plan dated 07/31/2017 The patient's medications are reviewed. Chest x-rays reviewed. Cardiology will be consulted. The patient on medications for COPD as well. I don't believe she needs antibiotics at this time. She has completed that. We will give her a small dose of prednisone as well. Additional recommendations and suggestions are forthcoming. She is very tearful today. Prognosis is guarded. Time with Patient: Greater than 30
[2017-07-31] MEDS: MAG HYDROX/AL HYDROX/SIMETH 30 ML, diphenhydrAMINE ELIXIR 75 MG, LIDOCAINE VISCOUS 30 ML PO PRN ×6 (14:37→21:03)
[2017-07-31 17:21] LABS: Glucose,Whole Blood 262 mg/dL (75-99)
[2017-07-31] MEDS: ATORVASTATIN 40 MG TAB PO SCH (20:32)
[2017-07-31] MEDS: MAGNESIUM OXIDE 400 MG TAB PO SCH (20:33)
[2017-07-31] MEDS: SYMBICORT 160-4.5 MCG INHALER INHALATION SCH (20:37)
[2017-07-31] MEDS: clonazePAM 0.5 MG TAB PO PRN (20:45)
[2017-07-31] MEDS: FUROSEMIDE 10 MG/ML 4 ML VIAL IV SCH (20:54)
[2017-07-31 20:56] LABS: Glucose,Whole Blood 201 mg/dL (75-99)
[2017-07-31] MEDS ORDERED: PIOGLITAZONE 15 MG TAB PO SCH (21:00)
--- NOTE | 2017-07-31 22:01 | P.PN ---
Subjective Progress Note Date: 07/31/17 Principal diagnosis: Acute COPD and CHF exacerbation Patient is a 72-year-old female with a known history of COPD, sarcoidosis, tracheobronchomalacia, Sjogren's syndrome, history of AL, hypertension, diabetes type 2 and multiple other medical problems came to ER with complaints of worsening shortness of breath and exertional dyspnea. Patient also having cough without much sputum production. Patient follows with Dr. Bernstein in the clinic. Patient recently completed steroid tapering dose about 2 days ago. Patient is on prednisone 5 mg daily as a maintenance dose. Otherwise patient denied any fever or chills. No chest pain. Patient does have chronic lower extremity edema and was recently treated for lower extremity wounds and cellulitis. BNP 480 Troponin 0.069 and 0.091 Chest x-ray showed congestive heart failure and pulmonary edema new compared to previous exam EKG showed normal sinus rhythm 07/31/2017 Patient breathing status is slightly improved. Otherwise still having shortness of breath with them relation. Chest x-ray showed CHF and pulmonary vascular congestion. Patient will be started on Lasix 40 mg every 12. Cardiology has been consulted. Patient was seen by pulmonary. Currently on breathing treatments and steroids changed to prednisone 20 mg daily. No fever no chills. Patient is able to sit on the side of the bed. No other acute overnight issues. All other review of systems negative except the above Active Medications Generic Name Dose Route Start Last Admin Trade Name Freq PRN Reason Stop Dose Admin Hydrocodone Bitart/Acetaminophen 1 each 07/31/17 06:24 07/31/17 20:45 [place] 7.5-325 PO 1 each Q4H PRN Administration SEVERE Pain Hydrocodone Bitart/Acetaminophen 1 each 07/31/17 06:31 [place] 7.5-325 PO Q6H PRN MODERATE Pain Albuterol/Ipratropium 3 ml 07/31/17 00:30 Duoneb 0.5 Mg-3 Mg/3 Ml Soln INHALATION RT-QID PRN Shortness Of Breath Or Wheezing Albuterol/Ipratropium 3 ml 07/31/17 08:00 07/31/17 20:37 Duoneb 0.5 Mg-3 Mg/3 Ml Soln INHALATION 3 ml RT-QID AICHA Administration Aspirin 81 mg 07/31/17 09:00 07/31/17 08:21 Aspirin PO 81 mg QAM AICHA Administration Atorvastatin Calcium 40 mg 07/31/17 21:00 07/31/17 20:32 Lipitor PO 40 mg HS AICHA Administration Budesonide/Formoterol Fumarate 2 puff 07/31/17 20:00 07/31/17 20:37 Symbicort 160-4.5 Mcg Inhaler INHALATION 2 puff RT-BID AICHA Administration Cholecalciferol 2,000 unit 07/31/17 09:00 07/31/17 08:21 Vitamin D3 PO 2,000 unit QAM AICHA Administration Clonazepam 0.5 mg 07/30/17 21:47 07/31/17 20:45 Klonopin PO 0.5 mg HS PRN Administration restless leg Al Hydroxide/Mg Hydroxide 30 0 ml 07/31/17 13:36 07/31/17 21:03 ml/ Diphenhydramine HCl 75 mg/ PO 5 ml Lidocaine HCl 30 ml TID PRN Administration Dry Mouth Furosemide 40 mg 07/31/17 21:00 07/31/17 20:54 Lasix IV 40 mg Q12HR AICHA Administration Heparin Sodium (Porcine) 5,000 unit 07/31/17 08:00 07/31/17 17:21 Heparin SQ 5,000 unit Q8HR AICHA Administration Ibuprofen 600 mg 07/31/17 06:24 07/31/17 10:35 Motrin PO 600 mg Q8HR PRN Administration MILD Pain Insulin Aspart 0 unit 07/31/17 00:12 07/31/17 20:58 Novolog SQ 6 unit ACHS AICHA Administration Protocol Insulin Human Isoph/Insulin Regular 40 unit 07/31/17 07:30 07/31/17 17:21 Humulin 70/30 Vial SQ 40 unit AC-BID AICHA Administration Magnesium Oxide 400 mg 07/31/17 21:00 07/31/17 20:33 Mag-Ox PO 400 mg HS AICHA Administration Metolazone 5 mg 07/31/17 09:00 07/31/17 08:21 Zaroxolyn PO 5 mg DAILY AICHA Administration Metoprolol Succinate 25 mg 07/31/17 09:00 07/31/17 08:21 Toprol Xl PO 25 mg DAILY AICHA Administration Multivitamins 1 each 07/31/17 09:00 07/31/17 08:21 Theragran PO 1 each QAM AICHA Administration Nitroglycerin 0.4 mg 07/30/17 21:56 Nitrostat SUBLINGUAL Q5M PRN Chest Pain Pioglitazone HCl 15 mg 07/31/17 21:00 07/31/17 20:33 Actos PO 15 mg HS AICHA Administration Prednisone 20 mg 08/01/17 09:00 PO DAILY AICHA Ropinirole HCl 1 mg 07/31/17 21:00 07/31/17 20:32 Requip PO 1 mg HS AICHA Administration Objective - Vital Signs Vital signs: Vital Signs Temp 98 F 07/31/17 15:39 Pulse 94 07/31/17 16:56 Resp 18 07/31/17 15:39 BP 140/65 07/31/17 15:39 Pulse Ox 99 07/31/17 15:39 Intake & Output 07/30/17 07/31/17 07/31/17 18:59 06:59 18:59 Intake Total 490 1240 Balance 490 1240 Weight 91.626 kg 93.8 kg Intake: IV 10 0.9 10 Oral 480 1240 Other: Voiding Method Toilet Toilet Diaper Diaper # Voids 3 - Exam PHYSICAL EXAMINATION: Patient is lying in the bed comfortably, no acute distress, awake alert and oriented.. HEENT: Normocephalic. Neck is supple. Pupils reactive. Nostrils clear. Oral cavity is moist. Ears reveal no drainage. Neck reveals no JVD, carotid bruits, or thyromegaly. CHEST EXAMINATION: Trachea is central. Symmetrical expansion. Bibasilar diminished air entry with minimal crackles and expiratory wheezing CARDIAC: Normal S1, S2 with no gallops. No murmurs ABDOMEN: Soft. Bowel sounds normal. No organomegaly. No abdominal bruits. Extremities: 2+ edema bilateral lower extremity with one blister. No clubbing or cyanosis Neurologically awake, alert, oriented x3 with well-coordinated movements. No focal deficits noted Skin: No rash or skin lesions. Psychiatric: Cooperative. Nonsuicidal Musculoskeletal: No joint swelling or deformity. Normal range of motion. - Labs CBC & Chem 7: 07/30/17 18:18 07/30/17 18:18 Labs: Abnormal Lab Results - Last 24 Hours (Table) 07/30/17 07/30/17 07/30/17 Range/Units 18:18 18:18 18:18 Plt Count 120 L (150-450) k/uL Neutrophils # 8.4 H (1.3-7.7) k/uL Lymphocytes # 0.3 L (1.0-4.8) k/uL APTT (22.0-30.0) sec Chloride 108 H (98-107) mmol/L BUN 37 H (7-17) mg/dL Glucose 292 H (74-99) mg/dL POC Glucose (mg/dL) (75-99) mg/dL CK-MB (CK-2) 2.9 H* (0.0-2.4) ng/mL Troponin I 0.069 H* (0.000-0.034) ng/mL Total Protein 6.0 L (6.3-8.2) g/dL Albumin 3.2 L (3.5-5.0) g/dL HDL Cholesterol (40-60) mg/dL 07/30/17 07/31/17 07/31/17 Range/Units 19:59 00:09 00:12 Plt Count (150-450) k/uL Neutrophils # (1.3-7.7) k/uL Lymphocytes # (1.0-4.8) k/uL APTT 21.0 L (22.0-30.0) sec Chloride (98-107) mmol/L BUN (7-17) mg/dL Glucose (74-99) mg/dL POC Glucose (mg/dL) 261 H (75-99) mg/dL CK-MB (CK-2) 3.3 H* (0.0-2.4) ng/mL Troponin I 0.098 H* (0.000-0.034) ng/mL Total Protein (6.3-8.2) g/dL Albumin (3.5-5.0) g/dL HDL Cholesterol (40-60) mg/dL 07/31/17 07/31/17 07/31/17 Range/Units 06:04 06:04 06:15 Plt Count (150-450) k/uL Neutrophils # (1.3-7.7) k/uL Lymphocytes # (1.0-4.8) k/uL APTT (22.0-30.0) sec Chloride (98-107) mmol/L BUN (7-17) mg/dL Glucose (74-99) mg/dL POC Glucose (mg/dL) 290 H (75-99) mg/dL CK-MB (CK-2) 2.9 H* (0.0-2.4) ng/mL Troponin I 0.079 H* (0.000-0.034) ng/mL Total Protein (6.3-8.2) g/dL Albumin (3.5-5.0) g/dL HDL Cholesterol 85 H (40-60) mg/dL 07/31/17 07/31/17 Range/Units 11:27 17:01 Plt Count (150-450) k/uL Neutrophils # (1.3-7.7) k/uL Lymphocytes # (1.0-4.8) k/uL APTT (22.0-30.0) sec Chloride (98-107) mmol/L BUN (7-17) mg/dL Glucose (74-99) mg/dL POC Glucose (mg/dL) 286 H 262 H (75-99) mg/dL CK-MB (CK-2) (0.0-2.4) ng/mL Troponin I (0.000-0.034) ng/mL Total Protein (6.3-8.2) g/dL Albumin (3.5-5.0) g/dL HDL Cholesterol (40-60) mg/dL Assessment and Plan Assessment: Pulmonary vascular congestion with acute CHF. Ejection fraction unknown. Acute COPD exacerbation. Failed outpatient therapy. Sarcoidosis not active Troponin leak unlikely acute coronary syndrome Chronic lower extremity edema and recent cellulitis Hypertension diabetes type 2 History of CVA/TIA GERD hearing disorder Hyperlipidemia History of AL Hypothyroidism Tracheobronchomalacia Sjogrens syndrome Chronic inflammatory demyelinating polyneuropathy Moderate aortic stenosis Restless leg syndrome Osteoporosis Nonalcoholic hepatic steatosis with history of liver biopsy Anxiety and depression and claustrophobia DVT prophylaxis Plan: Patient be continued on IV steroids and breathing treatments. Patient was given IV Lasix 40 mg 1 in the ER. We'll continue with the Lasix 40 mg every 12 and metolazone. Pulmonary and cardiology is on board. Continue with home medications and further recommendations based on the clinical course. Prognosis is guarded with multiple medical problems and comorbid conditions and complications. Time with Patient: Greater than 30
[2017-08-01 06:01] LABS: Basophils % (A) 0 %; Eosinophils % (A) 0 %; HCT 36.2 % (34.0-46.0); HGB 12.3 gm/dL (11.4-16.0); Lymphocytes # (A) 0.9 k/uL (1.0-4.8); Lymphocytes % (A) 9 %; MCH 31.9 pg (25.0-35.0); Monocytes # (A) 0.6 k/uL (0-1.0); Monocytes % (A) 6 %; Neutrophils # (A) 8.2 k/uL (1.3-7.7); Neutrophils % (A) 83 %; Platelet Count 130 k/uL (150-450); RBC 3.87 m/uL (3.80-5.40); RDW 14.5 % (11.5-15.5); WBC 9.8 k/uL (3.8-10.6)
[2017-08-01 06:05] LABS: MCV 93.6 fL (80.0-100.0)
[2017-08-01] MEDS: HYDROcodone/APAP 7.5-325MG 1 EACH TAB PO PRN ×3 (06:05→19:47)
[2017-08-01] MEDS: IBUPROFEN 600 MG TAB PO PRN ×3 (06:06→23:16)
[2017-08-01 06:09] LABS: Calcium 9.3 mg/dL (8.4-10.2); Potassium 3.5 mmol/L (3.5-5.1)
[2017-08-01 06:15] LABS: Glucose,Whole Blood 106 mg/dL (75-99)
[2017-08-01] MEDS: HEPARIN SODIUM,PORCINE 5,000 UNIT/ML 1 ML VIAL SQ SCH ×4 (06:46→23:17)
[2017-08-01] MEDS: INSULIN ASPART 100 UNIT/ML 1 ML 10 ML VIAL SQ SCH ×4 (06:46→21:32)
[2017-08-01] MEDS: INSULIN NPH/REG INSULIN 70/30 300 UNIT/3 ML VIAL SQ SCH ×2 (06:47→17:43)
[2017-08-01] MEDS: MULTIVITAMINS, THERA 1 EACH TAB PO SCH (08:33)
[2017-08-01] MEDS: METOPROLOL SUCCINATE (ER) 25 MG TAB.ER.24H PO SCH (08:33)
[2017-08-01] MEDS: predniSONE 20 MG TAB PO SCH (08:33)
[2017-08-01] MEDS: CHOLECALCIFEROL 1,000 UNIT TAB PO SCH (08:34)
[2017-08-01] MEDS: METOLAZONE 5 MG TAB PO SCH (08:34)
[2017-08-01] MEDS: ASPIRIN 81 MG PO SCH (08:34)
[2017-08-01] MEDS: FUROSEMIDE 10 MG/ML 4 ML VIAL IV SCH ×2 (08:34→21:26)
[2017-08-01] MEDS: IPRATROPIUM-ALBUTEROL 3 ML NEB INHALATION SCH ×4 (09:10→20:54)
[2017-08-01] MEDS: SYMBICORT 160-4.5 MCG INHALER INHALATION SCH ×2 (09:10→20:54)
--- NOTE | 2017-08-01 09:35 | P.CRDCN ---
History of Present Illness Consult date: 08/01/17 Requesting physician: Ethan Will Consult reason: congestive heart failure Chief complaint: Shortness of breath History of present illness: This is a pleasant 72-year-old female who follows with Dr. Walker in the office. She has a known history of COPD, sarcoidosis, Sjogren's syndrome, osteoporosis, diabetes, hypertension, hyperlipidemia, prior TIA, anemia, hypothyroidism. She was recently treated as an outpatient with antibiotics and steroids for COPD exacerbation, in spite of this the patient states that she was progressively getting worse. She noticed a significant increase in her peripheral edema. Patient denies having any chest discomfort. Chest x-ray performed on admission revealed congestive heart failure and pulmonary edema new as compared with prior exam. EKG on arrival here showed a normal sinus rhythm with no acute changes. Subsequent EKG shows normal sinus rhythm with no acute changes. Blood pressure 140/60, heart rate in the 90s. White blood cell count 9.8, hemoglobin 12.3, platelet count 130. Sodium 143, potassium 3.5, BUN 47, creatinine 0.8. Magnesium 1.9, troponins 0.069, 0.098, 0.079. BNP 480. Patient was initiated on IV Lasix on admission here, she has been diuresing although her weight is not reflective of this. She still complains of feeling short of breath, however she does state that it is somewhat improved from her admission here. Past Medical History Past Medical History: Asthma, Coronary Artery Disease (CAD), Cancer, COPD, CVA/ TIA, Diabetes Mellitus, GERD/Reflux, Hearing Disorder / Deafness, Hyperlipidemia , Hypertension, Liver Disease, Myocardial Infarction (FL), Osteoarthritis (OA), Pneumonia, Thyroid Disorder Additional Past Medical History / Comment(s): Sarcoidosis, tracheo bronchomalacia, sjogrens syndrome, 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, non alcoholic steatohepatitis, nephrolithiasis, osteoporosis,sciatica, restless leg syndrome, anemia, hx of TIA 2, thyroid nodule, diverticulosis, skin cancer, tracheobronchomalacia, restless leg syndrome, moderate degree of aortic stenosis Last Myocardial Infarction Date:: unknown History of Any Multi-Drug Resistant Organisms: None Reported Past Surgical History: Back Surgery, Cholecystectomy, Heart Catheterization, Tubal Ligation Additional Past Surgical History / Comment(s): several bronchoscopies, cystoscopy , laminectomy total of 13 back sx including implanted pain stimulator, liver biopsy, cataract surgery , liver bx 2008 had ercp /stent in liver, skin ca removed. jonah carpal tunnel done ,heel spurs rt heel . thyroid bx (nodule) RING FINGER RIGHT HAND RIGHT Past Anesthesia/Blood Transfusion Reactions: Motion Sickness Additional Past Anesthesia/Blood Transfusion Reaction / Comment(s): claustrophobia. NEVER HAD ANY BLOOD TRANSFUSIONS Past Psychological History: Anxiety, Depression Smoking Status: Never smoker Past Alcohol Use History: None Reported Past Drug Use History: None Reported - Past Family History Father History Unknown: Yes Additional Family Medical History / Comment(s): was adopted Mother History Unknown: Yes Family Medical History: Cancer Additional Family Medical History / Comment(s): breast Medications and Allergies Home Medications Medication Instructions Recorded Confirmed Type Multivit with Calcium,Iron,Min 1 tab PO QAM 08/21/13 07/30/17 History [Women's Daily Multivitamin] Magnesium Gluconate [Magonate] 500 mg PO QAM 04/18/15 07/30/17 History clonazePAM [KlonoPIN] 0.5 - 1 mg PO HS PRN 04/18/15 07/30/17 History Aspirin 81 mg PO QAM 06/24/15 07/30/17 History Atorvastatin [Lipitor] 40 mg PO HS 06/24/15 07/30/17 History Cholecalciferol [Vitamin D3] 2,000 unit PO QAM 06/24/15 07/30/17 History predniSONE 5 mg PO DAILY 10/18/16 07/30/17 History Metoprolol Succinate [Toprol XL] 25 mg PO DAILY 02/10/17 07/30/17 History rOPINIRole HCL [Requip] 1 mg PO HS 02/11/17 07/30/17 History Insulin Aspart [NovoLOG See Protocol SQ ACHS 04/02/17 07/30/17 History (formulary)] Alendronate Sodium [Fosamax] 70 mg PO CURRY 06/14/17 07/30/17 History Furosemide [Lasix] 20 - 40 mg PO QAM 06/14/17 07/30/17 History Metolazone [Zaroxolyn] 5 mg PO DAILY 06/14/17 07/30/17 History Albuterol Inhaler [Ventolin Hfa 2 puff INHALATION RT-BID 07/30/17 07/30/17 History Inhaler] Insulin NPH Hum/Reg Insulin Hm 40 unit SQ AC-BID 07/30/17 07/30/17 History [Novolin 70-30 100 Unit/ml Vial] Ipratropium Nebulized [Atrovent 0.5 mg INHALATION RT-QID 07/30/17 07/30/17 History Nebulized] Pioglitazone [Actos] 15 mg PO HS 07/30/17 07/30/17 History HYDROcodone/APAP 7.5-325MG [[place] 1 tab PO Q4-6H 07/31/17 07/31/17 History 7.5-325] Ibuprofen [Motrin] 600 mg PO Q8HR PRN 07/31/17 07/31/17 History Allergies Allergy/AdvReac Type Severity Reaction Status Date / Time erythromycin base Allergy Unknown Rash/Hives Verified 07/31/17 01:04 [Erythromycin Base] metoclopramide HCl Allergy Unknown Rash/Hives Verified 07/31/17 01:04 [From Reglan] Sulfa (Sulfonamide Allergy Unknown Rash/Hives Verified 07/31/17 01:04 Antibiotics) Physical Exam Vitals: Vital Signs Temp Pulse Pulse Resp BP Pulse Ox 08/01/17 08:00 70 16 104/57 93 L 08/01/17 04:00 97.7 F 98 18 128/58 98 08/01/17 00:00 97.2 F L 101 H 17 125/58 97 07/31/17 20:52 96 07/31/17 20:39 95 07/31/17 20:00 97.6 F 98 18 130/63 98 07/31/17 16:56 94 07/31/17 16:47 92 07/31/17 15:39 98 F 85 18 140/65 99 07/31/17 12:05 90 07/31/17 11:58 96 07/31/17 11:00 97.3 F L 91 18 125/58 98 Intake and Output 07/31/17 08/01/17 08/01/17 22:59 06:59 14:59 Intake Total 500 Output Total 350 600 Balance 150 -600 Intake: Oral 500 Output: Urine 350 600 Other: Voiding Method Toilet Toilet Diaper Diaper # Voids 1 Weight 94 kg PHYSICAL EXAMINATION: HEENT: Head is atraumatic, normocephalic. Pupils equal, round. Neck is supple. There is elevated jugular venous pressure. HEART EXAMINATION: Heart S1 S2 1 systolic murmur is heard. CHEST EXAMINATION: Lungs reveal rales to bilateral bases with diminished air entry to the bases. ABDOMEN: Soft, obese, nontender. Bowel sounds are heard. No organomegaly noted. EXTREMITIES: 2+ peripheral pulses with 1-2+ evidence of peripheral edema, bilateral chronic venous stasis and possible cellulitis noted to bilateral lower extremities. NEUROLOGIC patient is awake, alert and oriented -3. . Results 08/01/17 05:26 08/01/17 05:26 CBC 08/01/17 Range/Units 05:26 WBC 9.8 (3.8-10.6) k/uL RBC 3.87 (3.80-5.40) m/uL Hgb 12.3 (11.4-16.0) gm/dL Hct 36.2 (34.0-46.0) % Plt Count 130 L (150-450) k/uL Comprehensive Metabolic Panel 08/01/17 Range/Units 05:26 Sodium 143 (137-145) mmol/L Potassium 3.5 (3.5-5.1) mmol/L Chloride 104 (98-107) mmol/L Carbon Dioxide 28 (22-30) mmol/L BUN 47 H (7-17) mg/dL Creatinine 0.80 (0.52-1.04) mg/dL Glucose 111 H (74-99) mg/dL Calcium 9.3 (8.4-10.2) mg/dL Current Medications Generic Name Dose Route Start Last Admin Trade Name Freq PRN Reason Stop Dose Admin Hydrocodone Bitart/Acetaminophen 1 each 07/31/17 06:24 08/01/17 06:05 [place] 7.5-325 PO 1 each Q4H PRN Administration SEVERE Pain Hydrocodone Bitart/Acetaminophen 1 each 07/31/17 06:31 [place] 7.5-325 PO Q6H PRN MODERATE Pain Albuterol/Ipratropium 3 ml 07/31/17 00:30 Duoneb 0.5 Mg-3 Mg/3 Ml Soln INHALATION RT-QID PRN Shortness Of Breath Or Wheezing Albuterol/Ipratropium 3 ml 07/31/17 08:00 08/01/17 09:10 Duoneb 0.5 Mg-3 Mg/3 Ml Soln INHALATION 3 ml RT-QID AICHA Administration Aspirin 81 mg 07/31/17 09:00 08/01/17 08:34 Aspirin PO 81 mg QAM AICHA Administration Atorvastatin Calcium 40 mg 07/31/17 21:00 07/31/17 20:32 Lipitor PO 40 mg HS AICHA Administration Budesonide/Formoterol Fumarate 2 puff 07/31/17 20:00 08/01/17 09:10 Symbicort 160-4.5 Mcg Inhaler INHALATION 2 puff RT-BID AICHA Administration Cholecalciferol 2,000 unit 07/31/17 09:00 08/01/17 08:34 Vitamin D3 PO 2,000 unit QAM AICHA Administration Clonazepam 0.5 mg 07/30/17 21:47 07/31/17 20:45 Klonopin PO 0.5 mg HS PRN Administration restless leg Al Hydroxide/Mg Hydroxide 30 0 ml 07/31/17 13:36 07/31/17 21:03 ml/ Diphenhydramine HCl 75 mg/ PO 5 ml Lidocaine HCl 30 ml TID PRN Administration Dry Mouth Furosemide 40 mg 07/31/17 21:00 08/01/17 08:34 Lasix IV 40 mg Q12HR AICHA Administration Heparin Sodium (Porcine) 5,000 unit 07/31/17 08:00 08/01/17 08:34 Heparin SQ 5,000 unit Q8HR AICHA Administration Ibuprofen 600 mg 07/31/17 06:24 08/01/17 06:06 Motrin PO 600 mg Q8HR PRN Administration MILD Pain Insulin Aspart 0 unit 07/31/17 00:12 08/01/17 06:46 [facility] Protocol Insulin Human Isoph/Insulin Regular 40 unit 07/31/17 07:30 08/01/17 06:47 Humulin 70/30 Vial SQ 40 unit AC-BID AICHA Administration Magnesium Oxide 400 mg 07/31/17 21:00 07/31/17 20:33 Mag-Ox PO 400 mg HS AICHA Administration Metolazone 5 mg 07/31/17 09:00 08/01/17 08:34 Zaroxolyn PO 5 mg DAILY AICHA Administration Metoprolol Succinate 25 mg 07/31/17 09:00 08/01/17 08:33 Toprol Xl PO 25 mg DAILY AICHA Administration Multivitamins 1 each 07/31/17 09:00 08/01/17 08:33 Theragran PO 1 each QAM AICHA Administration Nitroglycerin 0.4 mg 07/30/17 21:56 Nitrostat SUBLINGUAL Q5M PRN Chest Pain Pioglitazone HCl 15 mg 07/31/17 21:00 07/31/17 20:33 Actos PO 15 mg HS AICHA Administration Prednisone 20 mg 08/01/17 09:00 08/01/17 08:33 PO 20 mg DAILY AICHA Administration Ropinirole HCl 1 mg 07/31/17 21:00 07/31/17 20:32 Requip PO 1 mg HS AICHA Administration Intake and Output 07/31/17 08/01/17 08/01/17 22:59 06:59 14:59 Intake Total 500 Output Total 350 600 Balance 150 -600 Intake: Oral 500 Output: Urine 350 600 Other: Voiding Method Toilet Toilet Diaper Diaper # Voids 1 Weight 94 kg 08/01/17 05:26 08/01/17 05:26 EKG Interpretations (text) EKG shows a normal sinus rhythm with no acute changes. Assessment and Plan Plan: Assessment and plan #1 congestive heart failure, acute on chronic, LV function unknown, BNP level 480. #2 history of COPD with acute exacerbation #3 diabetes #4 hypertension #5 hyperlipidemia #6 sarcoidosis #7 Sjgren syndrome #8 aortic stenosis #9 hypothyroidism #10 prior myocardial infarction, patient states she's been told to have an [place] in the past, she also states that she has had a cardiac catheterization several years ago with no blockages at that time according to her. #11 history of TIA #12 history of thrombocytopenia #13 mild dementia #14 abnormal troponins, likely secondary.supply and demand mismatch, patient denies having any chest discomfort. EKG shows normal sinus rhythm with no acute changes. Cannot completely rule out underlying coronary artery disease. #15 aortic stenosis Plan Cardiology's perspective, we will try to obtain copy of patient's prior cardiac catheterization. We will repeat an echocardiogram with Doppler study. Continue current dose of IV Lasix. Although the patient's BNP level is in the range of 480, this could be low secondary to the fact that she is obese. Clinical presentation suggests congestive heart failure. Further recommendations to follow. DNP note has been reviewed, I agree with a documented findings and plan of care. Patient was seen and examined.
--- NOTE | 2017-08-01 10:34 | ECHOF ---
Referral Reason:CHF MEASUREMENTS -------- HEIGHT: 132.1 cm WEIGHT: 93.9 kg BP: 128/58 IVSd: 1.1 cm (0.6 - 1.1) LVIDd: 3.8 cm (3.9 - 5.3) LVPWd: 1.2 cm (0.6 - 1.1) IVSs: 1.7 cm LVIDs: 2.1 cm LVPWs: 1.7 cm LAESV Index (A-L): 28.49 ml/m Ao Diam: 2.7 cm (2.0 - 3.7) AV Cusp: 1.1 cm (1.5 - 2.6) LA Diam: 3.7 cm (2.7 - 3.8) MV EXCURSION: 10.738 mm (> 18.000) MV EF SLOPE: 23 mm/s (70 - 150) EPSS: 0.4 cm MV E Go: 1.64 m/s MV DecT: 345 ms MV A Go: 1.71 m/s MV E/A Ratio: 0.96 AV maxP.95 mmHg AV meanP.53 mmHg AR PHT: 282 ms RAP: 15.00 mmHg RVSP: 40.95 mmHg FINDINGS -------- Sinus rhythm. This was a technically good study. The left ventricular size is normal. There is mild concentric left ventricular hypertrophy. Overa ll left ventricular systolic function is normal with, an EF between 55 - 60 %. The right ventricle is normal in size and function. The left atrium is normal in size. The right atrium is normal in size. Aortic valve is trileaflet and is moderately thickened. There is mild aortic regurgitation. There is moderate aortic stenosis present. Peak/mean gradient across the Aortic Valve is 46.95mmHg / 26. 53mmHg. The mitral valve leaflets are moderately thickened. Moderate mitral annular calcification present. Mild mitral regurgitation is present. The peak and mean MV gradients are 22.11mmHg 10.53mmHg as measured by doppler. [id number] mitral stenosis. Mild tricuspid regurgitation present. There is mild pulmonary hypertension. The right ventricular systolic pressure, as measured by Doppler, is 40.95mmHg. Pulmonic valve appears structurally normal. The aortic root size is normal. The inferior vena cava is mildly dilated. There is a trivial pericardial effusion present. CONCLUSIONS -------- 1. Sinus rhythm. 2. This was a technically good study. 3. The left ventricular size is normal. 4. There is mild concentric left ventricular hypertrophy. 5. Overall left ventricular systolic function is normal with, an EF between 55 - 60 %. 6. The right ventricle is normal in size and function. 7. The left atrium is normal in size. 8. The right atrium is normal in size. 9. Aortic valve is trileaflet and is moderately thickened. 10. There is mild aortic regurgitation. 11. There is moderate aortic stenosis present. 12. Peak/mean gradient across the Aortic Valve is 46.95mmHg / 26.53mmHg. 13. The mitral valve leaflets are moderately thickened. 14. Moderate mitral annular calcification present. 15. Mild mitral regurgitation is present. 16. The peak and mean MV gradients are 22.11mmHg 10.53mmHg as measured by doppler. 17. Mild tricuspid regurgitation present. 18. There is mild pulmonary hypertension. 19. The right ventricular systolic pressure, as measured by Doppler, is 40.95mmHg. 20. Pulmonic valve appears structurally normal. 21. The aortic root size is normal. 22. The inferior vena cava is mildly dilated. 23. There is a trivial pericardial effusion present. MANAGER PARKING: Christin Wood RDCS
[2017-08-01 11:44] LABS: Glucose,Whole Blood 169 mg/dL (75-99)
--- NOTE | 2017-08-01 15:08 | P.PN ---
Subjective Progress Note Date: 08/01/17 Principal diagnosis: Dyspnea, related to acute CHF exacerbation, and acute COPD exacerbation This is a 72-year-old female well-known to me. She has a history of COPD and sarcoidosis. The patient came into the emergency room complaining of a couple days with of increasing shortness of breath. She recently seen myself in the office and was treated with some antibiotics and steroids for COPD exacerbation. She states that on Saturday she started getting worse and started developing some increasing shortness of breath. No fever chills or sweats. No chest pain or chest discomfort. She was just feeling very very short of breath. She was brought into the emergency department she was found to have probable CHF. She also had significant lower extremity edema. She continues with chronic pain syndrome. Had a long time. In addition to COPD and sarcoidosis, which is currently inactive, she does have a history of hyperlipidemia hypertension osteoporosis chronic back pain and diabetes. ALLERGIES include erythromycin and Reglan and sulfa antibiotics. The patient is currently feeling better today than she did yesterday. A bit tearful. Wearing nasal O2. We did tell her that her chest x-ray in our opinion looks to be heart failure in origin. Her troponins were mildly elevated in her N- terminal pro BNP was only modestly abnormal. On 08/01/2017 she seen in follow-up on selective care unit. Denies any significant dyspnea, denies any chest congestion, only minimal wheezing on forced exhale maneuver. Patient is being diuresis with a combination of Lasix and Zaroxolyn, still has bilateral lower extremity edema, and chronic venous stasis discoloration in bilateral lower extremities. 2-D echocardiogram was done, and showed EF between 55-60%, mild aortic regurgitation, moderate aortic stenosis, moderate mitral and tricuspid regurgitation. Mild pulmonary hypertension with right ventricular systolic pressure of 40.9 mmHg. Trivial amount of pericardial effusion present. Patient denies any chest pain, denies any dyspnea. Seems to be fairly comfortable at rest. On 2 L per nasal cannula her O2 sat is 98%. Patient is on nebulized treatments, Symbicort, small amount of oral prednisone at 20 mg daily. Objective - Vital Signs Vital signs: Vital Signs Temp 97.7 F 08/01/17 04:00 Pulse 100 08/01/17 13:41 Resp 16 08/01/17 12:00 BP 106/54 08/01/17 12:00 Pulse Ox 98 04/12/18 12:00 Intake & Output 07/31/17 08/01/17 08/01/17 18:59 06:59 18:59 Intake Total 1740 462 Output Total 950 1000 Balance 1740 -950 -538 Weight 94 kg Intake: Oral 1740 462 Output: Urine 950 1000 Other: Voiding Method Toilet Toilet Toilet Diaper Diaper Diaper # Voids 1 - Exam GENERAL EXAM: Alert, pleasant 72-year-old female comfortable in no apparent distress. HEAD: Normocephalic/atraumatic. EYES: Normal reaction of pupils, equal size. Conjunctiva pink, sclera white. NOSE: Clear with pink turbinates. THROAT: No erythema or exudates. NECK: No masses, no JVD, no thyroid enlargement, no adenopathy. CHEST: No chest wall deformity. Symmetrical expansion. LUNGS: Equal air entry with no crackles, rhonchi or dullness. Faint wheezes on forced exhale maneuver CVS: Regular rate and rhythm, normal S1 and S2, no gallops, no rubs. Systolic murmur is auscultated ABDOMEN: Soft, nontender. No hepatosplenomegaly, normal bowel sounds, no guarding or rigidity. EXTREMITIES: No clubbing, no cyanosis, 2+ pulses and upper and lower extremities. 1+ nonpitting bilateral lower extremity edema, with cellulitis, and chronic venous stasis changes MUSCULOSKELETAL: Muscle strength and tone normal. SPINE: No scoliosis or deformity SKIN: No rashes CENTRAL NERVOUS SYSTEM: Alert and oriented -3. No focal deficits, tone is normal in all 4 extremities. PSYCHIATRIC: Alert and oriented -3. Appropriate affect. Intact judgment and insight. - Labs CBC & Chem 7: 08/01/17 05:26 08/01/17 05:26 Labs: Abnormal Lab Results - Last 24 Hours (Table) 07/31/17 07/31/17 08/01/17 Range/Units 17:01 20:52 05:26 Plt Count 130 L (150-450) k/uL Neutrophils # 8.2 H (1.3-7.7) k/uL Lymphocytes # 0.9 L (1.0-4.8) k/uL BUN (7-17) mg/dL Glucose (74-99) mg/dL POC Glucose (mg/dL) 262 H 201 H (75-99) mg/dL 08/01/17 08/01/17 08/01/17 Range/Units 05:26 06:12 11:24 Plt Count (150-450) k/uL Neutrophils # (1.3-7.7) k/uL Lymphocytes # (1.0-4.8) k/uL BUN 47 H (7-17) mg/dL Glucose 111 H (74-99) mg/dL POC Glucose (mg/dL) 106 H 169 H (75-99) mg/dL Microbiology - Last 24 Hours (Table) 07/30/17 18:18 Blood Culture - Preliminary Blood No Growth after 24 hours Assessment and Plan Plan: Assessment Shortness of breath, likely secondary to CHF exacerbation although, her COPD could be a component as well. Don't suspect infection at this time. Sarcoid is inactive. 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 Plan: Continue current plan of treatment, continue diuresis per cardiology recommendations, patient's dyspnea is improving, continue small dose of oral prednisone in addition to nebulized treatments and Symbicort. Accurate I&O's, daily weights. Patient continues with bilateral lower extremity edema, this could be related to underlying cor pulmonale, and pulmonary hypertension. We' ll continue to follow I performed a history & physical examination of the patient and discussed their management with my nurse practitioner, Trudy Maldonado. I reviewed the nurse practitioner's note and agree with the documented findings and plan of care. Lung sounds are positive for faint expiratory wheezes on forced exhale maneuver. The findings and the impression was discussed with the patient. I attest to the documentation by the nurse practitioner. Time with Patient: Less than 30
[2017-08-01 16:39] LABS: Glucose,Whole Blood 231 mg/dL (75-99)
[2017-08-01] MEDS: MAG HYDROX/AL HYDROX/SIMETH 30 ML, diphenhydrAMINE ELIXIR 75 MG, LIDOCAINE VISCOUS 30 ML PO PRN ×3 (19:48)
[2017-08-01 21:04] LABS: Glucose,Whole Blood 216 mg/dL (75-99)
[2017-08-01] MEDS: ATORVASTATIN 40 MG TAB PO SCH (21:25)
[2017-08-01] MEDS: MAGNESIUM OXIDE 400 MG TAB PO SCH (21:27)
--- NOTE | 2017-08-01 23:18 | P.PN ---
Subjective Progress Note Date: 08/01/17 Principal diagnosis: Acute COPD and CHF exacerbation Patient is a 72-year-old female with a known history of COPD, sarcoidosis, tracheobronchomalacia, Sjogren's syndrome, history of PR, hypertension, diabetes type 2 and multiple other medical problems came to ER with complaints of worsening shortness of breath and exertional dyspnea. Patient also having cough without much sputum production. Patient follows with Dr. Bernstein in the clinic. Patient recently completed steroid tapering dose about 2 days ago. Patient is on prednisone 5 mg daily as a maintenance dose. Otherwise patient denied any fever or chills. No chest pain. Patient does have chronic lower extremity edema and was recently treated for lower extremity wounds and cellulitis. BNP 480 Troponin 0.069 and 0.091 Chest x-ray showed congestive heart failure and pulmonary edema new compared to previous exam EKG showed normal sinus rhythm 07/31/2017 Patient breathing status is slightly improved. Otherwise still having shortness of breath with them relation. Chest x-ray showed CHF and pulmonary vascular congestion. Patient will be started on Lasix 40 mg every 12. Cardiology has been consulted. Patient was seen by pulmonary. Currently on breathing treatments and steroids changed to prednisone 20 mg daily. No fever no chills. Patient is able to sit on the side of the bed. No other acute overnight issues. 08/01/2017 Patient's breathing status is improving. No complaints of chest pain. Patient is still having leg swelling. Currently being continued on IV Lasix. 2-D echocardiogram showed EF between 55-60%, mild aortic regurgitation, moderate aortic stenosis, moderate mitral and tricuspid regurgitation. Mild pulmonary hypertension with right ventricular systolic pressure of 40.9 mmHg. Trivial amount of pericardial effusion present. Pulmonary and cardiology is following. All other review of systems negative except the above. Active Medications Generic Name Dose Route Start Last Admin Trade Name Freq PRN Reason Stop Dose Admin Hydrocodone Bitart/Acetaminophen 1 each 07/31/17 06:24 07/31/17 20:45 Napoleon 7.5-325 PO 1 each Q4H PRN Administration SEVERE Pain Hydrocodone Bitart/Acetaminophen 1 each 07/31/17 06:31 Napoleon 7.5-325 PO Q6H PRN MODERATE Pain Albuterol/Ipratropium 3 ml 07/31/17 00:30 Duoneb 0.5 Mg-3 Mg/3 Ml Soln INHALATION RT-QID PRN Shortness Of Breath Or Wheezing Albuterol/Ipratropium 3 ml 07/31/17 08:00 07/31/17 20:37 Duoneb 0.5 Mg-3 Mg/3 Ml Soln INHALATION 3 ml RT-QID AICHA Administration Aspirin 81 mg 07/31/17 09:00 07/31/17 08:21 Aspirin PO 81 mg QAM AICHA Administration Atorvastatin Calcium 40 mg 07/31/17 21:00 07/31/17 20:32 Lipitor PO 40 mg HS AICHA Administration Budesonide/Formoterol Fumarate 2 puff 07/31/17 20:00 07/31/17 20:37 Symbicort 160-4.5 Mcg Inhaler INHALATION 2 puff RT-BID AICHA Administration Cholecalciferol 2,000 unit 07/31/17 09:00 07/31/17 08:21 Vitamin D3 PO 2,000 unit QAM AICHA Administration Clonazepam 0.5 mg 07/30/17 21:47 07/31/17 20:45 Klonopin PO 0.5 mg HS PRN Administration restless leg Al Hydroxide/Mg Hydroxide 30 0 ml 07/31/17 13:36 07/31/17 21:03 ml/ Diphenhydramine HCl 75 mg/ PO 5 ml Lidocaine HCl 30 ml TID PRN Administration Dry Mouth Furosemide 40 mg 07/31/17 21:00 07/31/17 20:54 Lasix IV 40 mg Q12HR AICHA Administration Heparin Sodium (Porcine) 5,000 unit 07/31/17 08:00 07/31/17 17:21 Heparin SQ 5,000 unit Q8HR AICHA Administration Ibuprofen 600 mg 07/31/17 06:24 07/31/17 10:35 Motrin PO 600 mg Q8HR PRN Administration MILD Pain Insulin Aspart 0 unit 07/31/17 00:12 07/31/17 20:58 Novolog SQ 6 unit ACHS AICHA Administration Protocol Insulin Human Isoph/Insulin Regular 40 unit 07/31/17 07:30 07/31/17 17:21 Humulin 70/30 Vial SQ 40 unit AC-BID AICHA Administration Magnesium Oxide 400 mg 07/31/17 21:00 07/31/17 20:33 Mag-Ox PO 400 mg HS AICHA Administration Metolazone 5 mg 07/31/17 09:00 07/31/17 08:21 Zaroxolyn PO 5 mg DAILY AICHA Administration Metoprolol Succinate 25 mg 07/31/17 09:00 07/31/17 08:21 Toprol Xl PO 25 mg DAILY AICHA Administration Multivitamins 1 each 07/31/17 09:00 07/31/17 08:21 Theragran PO 1 each QAM AICHA Administration Nitroglycerin 0.4 mg 07/30/17 21:56 Nitrostat SUBLINGUAL Q5M PRN Chest Pain Pioglitazone HCl 15 mg 07/31/17 21:00 07/31/17 20:33 Actos PO 15 mg HS AICHA Administration Prednisone 20 mg 08/01/17 09:00 PO DAILY AICHA Ropinirole HCl 1 mg 07/31/17 21:00 07/31/17 20:32 Requip PO 1 mg HS AICHA Administration Objective - Vital Signs Vital signs: Vital Signs Temp 97.7 F 08/01/17 16:00 Pulse 100 08/01/17 17:26 Resp 18 08/01/17 16:00 BP 149/55 08/01/17 16:00 Pulse Ox 96 08/01/17 16:00 Intake & Output 07/31/17 08/01/17 08/01/17 18:59 06:59 18:59 Intake Total 1740 462 Output Total 950 1200 Balance 1740 -950 -738 Weight 94 kg Intake: Oral 1740 462 Output: Urine 950 1200 Other: Voiding Method Toilet Toilet Toilet Diaper Diaper Diaper # Voids 1 - Exam PHYSICAL EXAMINATION: Patient is lying in the bed comfortably, no acute distress, awake alert and oriented.. HEENT: Normocephalic. Neck is supple. Pupils reactive. Nostrils clear. Oral cavity is moist. Ears reveal no drainage. Neck reveals no JVD, carotid bruits, or thyromegaly. CHEST EXAMINATION: Trachea is central. Symmetrical expansion. Bibasilar air entry improved with minimal basilar crackles and expiratory wheezing CARDIAC: Normal S1, S2 with no gallops. No murmurs ABDOMEN: Soft. Bowel sounds normal. No organomegaly. No abdominal bruits. Extremities: 2+ edema bilateral lower extremity with one blister. No clubbing or cyanosis Neurologically awake, alert, oriented x3 with well-coordinated movements. No focal deficits noted Skin: No rash or skin lesions. Psychiatric: Cooperative. Nonsuicidal Musculoskeletal: No joint swelling or deformity. Normal range of motion. - Labs CBC & Chem 7: 08/01/17 05:26 08/01/17 05:26 Labs: Abnormal Lab Results - Last 24 Hours (Table) 07/31/17 08/01/17 08/01/17 Range/Units 20:52 05:26 05:26 Plt Count 130 L (150-450) k/uL Neutrophils # 8.2 H (1.3-7.7) k/uL Lymphocytes # 0.9 L (1.0-4.8) k/uL BUN 47 H (7-17) mg/dL Glucose 111 H (74-99) mg/dL POC Glucose (mg/dL) 201 H (75-99) mg/dL 08/01/17 08/01/17 08/01/17 Range/Units 06:12 11:24 16:29 Plt Count (150-450) k/uL Neutrophils # (1.3-7.7) k/uL Lymphocytes # (1.0-4.8) k/uL BUN (7-17) mg/dL Glucose (74-99) mg/dL POC Glucose (mg/dL) 106 H 169 H 231 H (75-99) mg/dL Microbiology - Last 24 Hours (Table) 07/30/17 18:18 Blood Culture - Preliminary Blood No Growth after 24 hours Assessment and Plan Assessment: Pulmonary vascular congestion with acute CHF with diastolic dysfunction. Ejection fraction 55-60% Acute mild COPD exacerbation. Sarcoidosis not active Troponin leak unlikely acute coronary syndrome Chronic lower extremity edema and recent cellulitis Bilateral lower activity venostasis changes Hypertension diabetes type 2 History of CVA/TIA GERD hearing disorder Hyperlipidemia History of PR Hypothyroidism Tracheobronchomalacia Sjogrens syndrome Chronic inflammatory demyelinating polyneuropathy Moderate aortic stenosis Restless leg syndrome Osteoporosis Nonalcoholic hepatic steatosis with history of liver biopsy Anxiety and depression and claustrophobia DVT prophylaxis Plan: Patient be continued on IV steroids and breathing treatments. Patient was given IV Lasix 40 mg 1 in the ER. We'll continue with the Lasix 40 mg every 12 and metolazone. Pulmonary and cardiology is on board. Continue with home medications and further recommendations based on the clinical course. Prognosis is guarded with multiple medical problems and comorbid conditions and complications. Time with Patient: Greater than 30
[2017-08-02] MEDS: HYDROcodone/APAP 7.5-325MG 1 EACH TAB PO PRN ×4 (00:03→22:46)
[2017-08-02 06:06] LABS: Glucose,Whole Blood 56 mg/dL (75-99)
[2017-08-02 06:21] LABS: Glucose,Whole Blood 69 mg/dL (75-99)
[2017-08-02 06:23] LABS: Basophils % (A) 0 %; Eosinophils # (A) 0.2 k/uL (0-0.7); Eosinophils % (A) 3 %; HCT 36.1 % (34.0-46.0); HGB 12.2 gm/dL (11.4-16.0); Lymphocytes # (A) 1.4 k/uL (1.0-4.8); Lymphocytes % (A) 18 %; MCH 31.6 pg (25.0-35.0); MCHC 33.7 g/dL (31.0-37.0); MCV 93.7 fL (80.0-100.0); Mean Platelet Volume 7.1; Monocytes # (A) 0.6 k/uL (0-1.0); Monocytes % (A) 7 %; Neutrophils # (A) 5.4 k/uL (1.3-7.7); Neutrophils % (A) 71 %; Platelet Count 121 k/uL (150-450); RBC 3.85 m/uL (3.80-5.40); RDW 14.5 % (11.5-15.5); WBC 7.7 k/uL (3.8-10.6)
[2017-08-02 06:30] LABS: Glucose,Whole Blood 93 mg/dL (75-99)
[2017-08-02] MEDS: INSULIN ASPART 100 UNIT/ML 1 ML 10 ML VIAL SQ SCH ×4 (07:04→21:22)
[2017-08-02 07:06] LABS: Potassium 2.9 mmol/L (3.5-5.1)
[2017-08-02] MEDS ORDERED: Potassium Replacement Protocol 1 EACH MISC MISCELLANE PRN ×2 (07:44→14:59)
[2017-08-02] MEDS: INSULIN NPH/REG INSULIN 70/30 300 UNIT/3 ML VIAL SQ SCH ×2 (07:45→17:43)
[2017-08-02] MEDS: IPRATROPIUM-ALBUTEROL 3 ML NEB INHALATION SCH ×4 (08:10→20:53)
[2017-08-02] MEDS: SYMBICORT 160-4.5 MCG INHALER INHALATION SCH ×2 (08:10→20:53)
[2017-08-02] MEDS: HEPARIN SODIUM,PORCINE 5,000 UNIT/ML 1 ML VIAL SQ SCH ×3 (08:50→22:46)
[2017-08-02] MEDS: ASPIRIN 81 MG PO SCH (08:51)
[2017-08-02] MEDS: POTASSIUM CHLORIDE ER 20 MEQ TAB.ER PO SCH ×5 (08:51→17:43)
[2017-08-02] MEDS: CHOLECALCIFEROL 1,000 UNIT TAB PO SCH (08:52)
[2017-08-02] MEDS: METOPROLOL SUCCINATE (ER) 25 MG TAB.ER.24H PO SCH (08:53)
[2017-08-02] MEDS: METOLAZONE 5 MG TAB PO SCH (08:53)
[2017-08-02] MEDS: MULTIVITAMINS, THERA 1 EACH TAB PO SCH (08:54)
[2017-08-02] MEDS: predniSONE 20 MG TAB PO SCH (08:54)
[2017-08-02] MEDS: FUROSEMIDE 10 MG/ML 4 ML VIAL IV SCH ×3 (09:01→20:25)
--- NOTE | 2017-08-02 11:55 | P.PN ---
Subjective Progress Note Date: 08/02/17 Principal diagnosis: Congestive heart failure exacerbation secondary to diastolic dysfunction This is a pleasant 72-year-old female patient who sees Dr. Henderson in the office as an outpatient with a past medical history significant for chronic respiratory failure secondary to COPD, diabetes, hypertension, dyslipidemia, and multiple comorbid conditions, was admitted to the hospital with progressive dyspnea. The patient was diagnosed with acute on chronic respiratory failure. The patient acute respiratory failure was mainly related to COPD exacerbation with small component of congestive heart failure exacerbation. She underwent an echocardiogram during this admission and that revealed normal LV function with moderate aortic stenosis and moderate mitral stenosis. On follow-up with her today, she is feeling better indeterminable shortness of breath which she still have bilateral rhonchi in both lung muñiz. She still have bilateral pedal edema with chronic skin changes. I recommended continue the Lasix IV for additional 24 hours. Continue monitor the kidney function and electrolytes. Replace the potassium which was low. Objective - Vital Signs Vital signs: Vital Signs Temp 97 F L 08/02/17 08:00 Pulse 100 08/02/17 11:30 Resp 16 08/02/17 08:00 BP 115/51 08/02/17 08:00 Pulse Ox 96 08/02/17 04:00 Intake & Output 08/01/17 08/02/17 08/02/17 18:59 06:59 18:59 Intake Total 822 360 Output Total 1200 1400 Balance -378 -1400 360 Weight 93.2 kg Intake: Oral 822 360 Output: Urine 1200 1400 Other: Voiding Method Toilet Bedside Commode Bedside Commode Diaper # Voids 1 - Constitutional General appearance: Present: no acute distress - Respiratory Respiratory: bilateral: rales - Cardiovascular Rhythm: regular Heart sounds: normal: S1, S2 Abnormal Heart Sounds: Present: systolic murmur - Labs CBC & Chem 7: 08/02/17 05:43 08/02/17 05:43 Labs: Abnormal Lab Results - Last 24 Hours (Table) 08/01/17 08/01/17 08/02/17 Range/Units 16:29 21:02 05:43 Plt Count 121 L (150-450) k/uL Potassium (3.5-5.1) mmol/L Carbon Dioxide (22-30) mmol/L BUN (7-17) mg/dL Glucose (74-99) mg/dL POC Glucose (mg/dL) 231 H 216 H (75-99) mg/dL 08/02/17 08/02/17 08/02/17 Range/Units 05:43 06:03 06:20 Plt Count (150-450) k/uL Potassium 2.9 L* (3.5-5.1) mmol/L Carbon Dioxide 31 H (22-30) mmol/L BUN 52 H (7-17) mg/dL Glucose 49 L* (74-99) mg/dL POC Glucose (mg/dL) 56 L 69 L (75-99) mg/dL Microbiology - Last 24 Hours (Table) 07/30/17 18:18 Blood Culture - Preliminary Blood No Growth after 48 hours Assessment and Plan Assessment: Assessment #1 acute on chronic respiratory failure #2 COPD exacerbation #3 congestive heart failure exacerbation secondary to diastole dysfunction #4 hypertension #5 dyslipidemia #6 multiple comorbidities including sarcoidosis and Sjgren syndrome. Plan #1 continue the IV Lasix for additional 24 hours #2 the patient still slightly hypervolemic #3 monitor the kidney function and electrolytes #4 replace the potassium #5 follow-up with the patient. Thank you for allowing us participate in her care
[2017-08-02 12:18] LABS: Glucose,Whole Blood 267 mg/dL (75-99)
--- NOTE | 2017-08-02 12:53 | P.PN ---
Subjective Progress Note Date: 08/02/17 Principal diagnosis: Shortness of breath/CHF Progress note dated 08/02/2017 72-year-old female who we saw in consultation at couple days ago shortness of breath. She does have history of COPD/asthma as well as a history of inactive sarcoidosis. The patient was admitted primarily with heart failure. She has significant shortness of breath orthopnea and lower extremity edema. She is feeling better. The patient is still on oxygen therapy. She's not coughing producing any phlegm. No fever or chills. No chest pain or chest discomfort. No wheezes or rhonchi. She does still have lower extremity edema but is improved. Objective - Vital Signs Vital signs: Vital Signs Temp 97.6 F 08/02/17 11:57 Pulse 85 08/02/17 11:57 Resp 16 08/02/17 11:57 BP 127/61 08/02/17 11:57 Pulse Ox 97 08/02/17 11:57 Intake & Output 08/01/17 08/02/17 08/02/17 18:59 06:59 18:59 Intake Total 822 360 Output Total 1200 1400 Balance -378 -1400 360 Weight 93.2 kg Intake: Oral 822 360 Output: Urine 1200 1400 Other: Voiding Method Toilet Bedside Commode Bedside Commode Diaper # Voids 1 - Exam No acute distress, oriented 3. Nasal O2 in place HEENT examination is grossly unremarkable. Mucous membranes are moist. No oral lesions. Neck supple. Full range of motion. No adenopathy thyromegaly or neck vein distention. Cardiovascular examination reveals regular rhythm rate. S1-S2 normal. No S3 or S4. No discernible murmur noted. Lungs reveal bibasilar crackles. Breath sounds are equal bilaterally but reduced throughout. No rhonchi or wheezes. Abdomen soft bowel sounds are heard. No masses or tenderness. Extremities are intact. There is bilateral lower extremity edema. It's 1-2+ pitting. Some mild areas of erythema. Skin is without rash or lesion. Neurologic examination is brief but nonfocal. - Labs CBC & Chem 7: 08/02/17 05:43 08/02/17 05:43 Labs: Abnormal Lab Results - Last 24 Hours (Table) 08/01/17 08/01/17 08/02/17 Range/Units 16:29 21:02 05:43 Plt Count 121 L (150-450) k/uL Potassium (3.5-5.1) mmol/L Carbon Dioxide (22-30) mmol/L BUN (7-17) mg/dL Glucose (74-99) mg/dL POC Glucose (mg/dL) 231 H 216 H (75-99) mg/dL 08/02/17 08/02/17 08/02/17 Range/Units 05:43 06:03 06:20 Plt Count (150-450) k/uL Potassium 2.9 L* (3.5-5.1) mmol/L Carbon Dioxide 31 H (22-30) mmol/L BUN 52 H (7-17) mg/dL Glucose 49 L* (74-99) mg/dL POC Glucose (mg/dL) 56 L 69 L (75-99) mg/dL 08/02/17 Range/Units 11:42 Plt Count (150-450) k/uL Potassium (3.5-5.1) mmol/L Carbon Dioxide (22-30) mmol/L BUN (7-17) mg/dL Glucose (74-99) mg/dL POC Glucose (mg/dL) 267 H (75-99) mg/dL Microbiology - Last 24 Hours (Table) 07/30/17 18:18 Blood Culture - Preliminary Blood No Growth after 48 hours Assessment and Plan Assessment: Assessment Shortness of breath, likely secondary to CHF exacerbation although, her COPD could be a component as well. Don't suspect infection at this time. Sarcoid is inactive. 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 Plan: Plan dated 07/31/2017 The patient's medications are reviewed. Chest x-rays reviewed. Cardiology will be consulted. The patient on medications for COPD as well. I don't believe she needs antibiotics at this time. She has completed that. We will give her a small dose of prednisone as well. Additional recommendations and suggestions are forthcoming. She is very tearful today. Prognosis is guarded. Plan dated 08/02/2017 The patient's medications and x-rays are reviewed. Cardiology has seen the patient. Continue to follow. Medications have been reviewed. She also usual breathing medications. We'll continue to follow closely. Labs and x-rays are reviewed. Time with Patient: Less than 30
[2017-08-02] MEDS: IBUPROFEN 600 MG TAB PO PRN ×2 (16:04→23:58)
[2017-08-02 16:37] LABS: Glucose,Whole Blood 268 mg/dL (75-99)
[2017-08-02] MEDS: MAGNESIUM OXIDE 400 MG TAB PO SCH (20:25)
[2017-08-02] MEDS: ATORVASTATIN 40 MG TAB PO SCH (20:25)
[2017-08-02 20:45] LABS: Glucose,Whole Blood 252 mg/dL (75-99)
[2017-08-03] MEDS: HYDROcodone/APAP 7.5-325MG 1 EACH TAB PO PRN ×4 (03:35→23:59)
[2017-08-03 06:41] LABS: Basophils % (A) 0 %; Eosinophils # (A) 0.3 k/uL (0-0.7); Eosinophils % (A) 5 %; HCT 36.7 % (34.0-46.0); HGB 12.3 gm/dL (11.4-16.0); Lymphocytes # (A) 1.2 k/uL (1.0-4.8); Lymphocytes % (A) 19 %; MCH 31.8 pg (25.0-35.0); MCHC 33.4 g/dL (31.0-37.0); MCV 95.1 fL (80.0-100.0); Mean Platelet Volume 6.8; Monocytes # (A) 0.5 k/uL (0-1.0); Monocytes % (A) 9 %; Neutrophils # (A) 3.8 k/uL (1.3-7.7); Neutrophils % (A) 65 %; Platelet Count 106 k/uL (150-450); RBC 3.86 m/uL (3.80-5.40); RDW 14.3 % (11.5-15.5)
[2017-08-03 06:42] LABS: Glucose,Whole Blood 142 mg/dL (75-99)
[2017-08-03 06:47] LABS: Calcium 9.1 mg/dL (8.4-10.2); Potassium 3.7 mmol/L (3.5-5.1)
[2017-08-03] MEDS: INSULIN ASPART 100 UNIT/ML 1 ML 10 ML VIAL SQ SCH ×4 (06:50→21:03)
[2017-08-03] MEDS: INSULIN NPH/REG INSULIN 70/30 300 UNIT/3 ML VIAL SQ SCH ×2 (07:21→17:04)
[2017-08-03] MEDS: METOLAZONE 5 MG TAB PO SCH (08:22)
[2017-08-03] MEDS: ASPIRIN 81 MG PO SCH (08:23)
[2017-08-03] MEDS: METOPROLOL SUCCINATE (ER) 25 MG TAB.ER.24H PO SCH (08:23)
[2017-08-03] MEDS: MULTIVITAMINS, THERA 1 EACH TAB PO SCH (08:23)
[2017-08-03] MEDS: HEPARIN SODIUM,PORCINE 5,000 UNIT/ML 1 ML VIAL SQ SCH ×3 (08:23→22:56)
[2017-08-03] MEDS: FUROSEMIDE 10 MG/ML 4 ML VIAL IV SCH ×2 (08:23→19:45)
[2017-08-03] MEDS: predniSONE 20 MG TAB PO SCH (08:23)
[2017-08-03] MEDS: CHOLECALCIFEROL 1,000 UNIT TAB PO SCH (08:23)
[2017-08-03] MEDS: IBUPROFEN 600 MG TAB PO PRN ×2 (08:28→19:46)
[2017-08-03] MEDS: IPRATROPIUM-ALBUTEROL 3 ML NEB INHALATION SCH ×4 (09:00→19:23)
[2017-08-03] MEDS: SYMBICORT 160-4.5 MCG INHALER INHALATION SCH ×2 (09:01→19:23)
[2017-08-03 11:51] LABS: Glucose,Whole Blood 63 mg/dL (75-99)
[2017-08-03 12:13] LABS: Glucose,Whole Blood 82 mg/dL (75-99)
--- NOTE | 2017-08-03 13:45 | P.PN ---
Subjective Progress Note Date: 08/03/17 Principal diagnosis: CHF This is a pleasant 72-year-old female who follows with Dr. Walker in the office, she has known history of sarcoidosis, COPD, hypertension, diabetes, hyperlipidemia, presented to the hospital with symptoms of progressively worsening dyspnea. She has been treated for exacerbation as well as congestive heart failure. Patient was seen and examined this morning, lying flat in bed at the time of my examination. Her weight today is down 2 kg, BUN 47, creatinine 0.8. Breathing is significantly improved overall. I pressure this morning 108/60 with heart rate in the 70s. 95% on room air. Objective - Vital Signs Vital signs: Vital Signs Temp 96.8 F L 08/03/17 03:55 Pulse 77 08/03/17 12:27 Resp 16 08/03/17 12:00 BP 107/69 08/03/17 12:00 Pulse Ox 95 08/03/17 12:00 Intake & Output 08/02/17 08/03/17 08/03/17 18:59 06:59 18:59 Intake Total 1080 20 240 Output Total 1999 Balance -920 20 240 Weight 91.8 kg Intake: IV 20 0.9 20 Oral 1080 240 Output: Urine 1999 Other: Voiding Method Bedside Commode Toilet Toilet Bedside Commode Bedside Commode # Voids 750 - Exam PHYSICAL EXAMINATION: HEENT: Head is atraumatic, normocephalic. Pupils equal, round. Neck is supple. There is no elevated jugular venous pressure. HEART EXAMINATION: Heart S1 and S2 systolic murmur is heard. CHEST EXAMINATION: Lungs are clear to auscultation and precussion. No chest wall tenderness is noted on palpation or with deep breathing. ABDOMEN: Soft, nontender. Bowel sounds are heard. No organomegaly noted. EXTREMITIES:[ 2+ peripheral pulses with trace to 1+ evidence of peripheral edema and evidence of bilateral chronic venous stasis noted NEUROLOGIC[patient is awake, alert and oriented -3] . - Labs CBC & Chem 7: 08/03/17 05:31 08/03/17 05:31 Labs: Abnormal Lab Results - Last 24 Hours (Table) 08/02/17 08/02/17 08/03/17 Range/Units 16:24 20:41 05:31 Plt Count 106 L (150-450) k/uL Carbon Dioxide (22-30) mmol/L BUN (7-17) mg/dL Glucose (74-99) mg/dL POC Glucose (mg/dL) 268 H 252 H (75-99) mg/dL 08/03/17 08/03/17 08/03/17 Range/Units 05:31 06:35 11:48 Plt Count (150-450) k/uL Carbon Dioxide 34 H (22-30) mmol/L BUN 47 H (7-17) mg/dL Glucose 160 H (74-99) mg/dL POC Glucose (mg/dL) 142 H 63 L (75-99) mg/dL Microbiology - Last 24 Hours (Table) 07/30/17 18:18 Blood Culture - Preliminary Blood No Growth after 72 hours Assessment and Plan Plan: Assessment and plan #1 congestive heart failure, acute on chronic, LV function unknown, BNP level 480. #2 history of COPD with acute exacerbation #3 diabetes #4 hypertension #5 hyperlipidemia #6 sarcoidosis #7 Sjgren syndrome #8 aortic stenosis #9 hypothyroidism #10 prior myocardial infarction, patient states she's been told to have an GA in the past, she also states that she has had a cardiac catheterization several years ago with no blockages at that time according to her. #11 history of TIA #12 history of thrombocytopenia #13 mild dementia #14 abnormal troponins, likely secondary.supply and demand mismatch, patient denies having any chest discomfort. EKG shows normal sinus rhythm with no acute changes. Cannot completely rule out underlying coronary artery disease. #15 aortic stenosis Plan Cardiology's perspective, we will try to obtain copy of patient's prior cardiac catheterization. We will repeat an echocardiogram with Doppler study. Continue current dose of IV Lasix. Although the patient's BNP level is in the range of 480, this could be low secondary to the fact that she is obese. Clinical presentation suggests congestive heart failure. Further recommendations to follow. DNP note has been reviewed, I agree with a documented findings and plan of care. Patient was seen and examined.
--- NOTE | 2017-08-03 14:14 | P.PN ---
Subjective Progress Note Date: 08/03/17 Principal diagnosis: Shortness of breath/CHF Progress note dated 08/02/2017 72-year-old female who we saw in consultation at couple days ago shortness of breath. She does have history of COPD/asthma as well as a history of inactive sarcoidosis. The patient was admitted primarily with heart failure. She has significant shortness of breath orthopnea and lower extremity edema. She is feeling better. The patient is still on oxygen therapy. She's not coughing producing any phlegm. No fever or chills. No chest pain or chest discomfort. No wheezes or rhonchi. She does still have lower extremity edema but is improved. Progress note dated 08/03/2017 72-year-old female who came in with complaints of increasing shortness of breath as well as lower extremity edema and orthopnea. She could have heart failure primarily. She does have history of asthma/COPD as well as a history of inactive sarcoidosis. She is feeling better. Swelling is improved. Still has lower extremity edema and some erythema. The patient is breathing better. Cough is a bit more harsh. Not producing any phlegm. No fever chills chest pain chest discomfort or any other complaints for that matter. Objective - Vital Signs Vital signs: Vital Signs Temp 96.8 F L 08/03/17 03:55 Pulse 77 08/03/17 12:27 Resp 16 08/03/17 12:00 BP 107/69 08/03/17 12:00 Pulse Ox 95 08/03/17 12:00 Intake & Output 08/02/17 08/03/17 08/03/17 18:59 06:59 18:59 Intake Total 1080 20 240 Output Total 1999 Balance -920 20 240 Weight 91.8 kg Intake: IV 20 0.9 20 Oral 1080 240 Output: Urine 1999 Other: Voiding Method Bedside Commode Toilet Toilet Bedside Commode Bedside Commode # Voids 750 - Exam No acute distress, oriented 3. Nasal O2 in place HEENT examination is grossly unremarkable. Mucous membranes are moist. No oral lesions. Neck supple. Full range of motion. No adenopathy thyromegaly or neck vein distention. Cardiovascular examination reveals regular rhythm rate. S1-S2 normal. No S3 or S4. No discernible murmur noted. Lungs reveal bibasilar crackles. Breath sounds are equal bilaterally but reduced throughout. No rhonchi or wheezes. Abdomen soft bowel sounds are heard. No masses or tenderness. Extremities are intact. There is bilateral lower extremity edema. It's 1-2+ pitting. Some mild areas of erythema. Skin is without rash or lesion. Neurologic examination is brief but nonfocal. - Labs CBC & Chem 7: 08/03/17 05:31 08/03/17 05:31 Labs: Abnormal Lab Results - Last 24 Hours (Table) 08/02/17 08/02/17 08/03/17 Range/Units 16:24 20:41 05:31 Plt Count 106 L (150-450) k/uL Carbon Dioxide (22-30) mmol/L BUN (7-17) mg/dL Glucose (74-99) mg/dL POC Glucose (mg/dL) 268 H 252 H (75-99) mg/dL 08/03/17 08/03/17 08/03/17 Range/Units 05:31 06:35 11:48 Plt Count (150-450) k/uL Carbon Dioxide 34 H (22-30) mmol/L BUN 47 H (7-17) mg/dL Glucose 160 H (74-99) mg/dL POC Glucose (mg/dL) 142 H 63 L (75-99) mg/dL Microbiology - Last 24 Hours (Table) 07/30/17 18:18 Blood Culture - Preliminary Blood No Growth after 72 hours Assessment and Plan Assessment: Assessment Shortness of breath, likely secondary to CHF exacerbation although, her COPD could be a component as well. Don't suspect infection at this time. Sarcoid is inactive. 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 Plan: Plan dated 07/31/2017 The patient's medications are reviewed. Chest x-rays reviewed. Cardiology will be consulted. The patient on medications for COPD as well. I don't believe she needs antibiotics at this time. She has completed that. We will give her a small dose of prednisone as well. Additional recommendations and suggestions are forthcoming. She is very tearful today. Prognosis is guarded. Plan dated 08/02/2017 The patient's medications and x-rays are reviewed. Cardiology has seen the patient. Continue to follow. Medications have been reviewed. She also usual breathing medications. We'll continue to follow closely. Labs and x-rays are reviewed. Plan dated 08/03/2017 The patient seemed be doing better. Her breathing has improved. She is complaining less of swelling. Minimal cough. Not producing any phlegm. No fever chills chest pain or chest discomfort. She does have some swelling in the lower extremities which is improving obvious slowly. She also has a couple of lesions on her left leg that she was concerned about. They look relatively benign to me. Time with Patient: Less than 30
[2017-08-03 16:41] LABS: Glucose,Whole Blood 310 mg/dL (75-99)
[2017-08-03] MEDS: ATORVASTATIN 40 MG TAB PO SCH (19:44)
[2017-08-03] MEDS: MAGNESIUM OXIDE 400 MG TAB PO SCH (19:45)
[2017-08-03 20:58] LABS: Glucose,Whole Blood 218 mg/dL (75-99)
[2017-08-03] MEDS: clonazePAM 0.5 MG TAB PO PRN (21:15)
--- NOTE | 2017-08-04 00:38 | P.PN ---
Subjective Progress Note Date: 08/02/17 Principal diagnosis: Acute COPD and CHF exacerbation Patient is a 72-year-old female with a known history of COPD, sarcoidosis, tracheobronchomalacia, Sjogren's syndrome, history of CO, hypertension, diabetes type 2 and multiple other medical problems came to ER with complaints of worsening shortness of breath and exertional dyspnea. Patient also having cough without much sputum production. Patient follows with Dr. Bernstein in the clinic. Patient recently completed steroid tapering dose about 2 days ago. Patient is on prednisone 5 mg daily as a maintenance dose. Otherwise patient denied any fever or chills. No chest pain. Patient does have chronic lower extremity edema and was recently treated for lower extremity wounds and cellulitis. BNP 480 Troponin 0.069 and 0.091 Chest x-ray showed congestive heart failure and pulmonary edema new compared to previous exam EKG showed normal sinus rhythm 07/31/2017 Patient breathing status is slightly improved. Otherwise still having shortness of breath with them relation. Chest x-ray showed CHF and pulmonary vascular congestion. Patient will be started on Lasix 40 mg every 12. Cardiology has been consulted. Patient was seen by pulmonary. Currently on breathing treatments and steroids changed to prednisone 20 mg daily. No fever no chills. Patient is able to sit on the side of the bed. No other acute overnight issues. 08/01/2017 Patient's breathing status is improving. No complaints of chest pain. Patient is still having leg swelling. Currently being continued on IV Lasix. 2-D echocardiogram showed EF between 55-60%, mild aortic regurgitation, moderate aortic stenosis, moderate mitral and tricuspid regurgitation. Mild pulmonary hypertension with right ventricular systolic pressure of 40.9 mmHg. Trivial amount of pericardial effusion present. Pulmonary and cardiology is following. 08/02/2017 Patient's breathing status is slightly improved otherwise patient is still having significant leg swelling and small blister 1. Continued on IV Lasix and cardiology is following. All other review of systems negative except the above. Active Medications Generic Name Dose Route Start Last Admin Trade Name Freq PRN Reason Stop Dose Admin Hydrocodone Bitart/Acetaminophen 1 each 07/31/17 06:24 07/31/17 20:45 [place] 7.5-325 PO 1 each Q4H PRN Administration SEVERE Pain Hydrocodone Bitart/Acetaminophen 1 each 07/31/17 06:31 [place] 7.5-325 PO Q6H PRN MODERATE Pain Albuterol/Ipratropium 3 ml 07/31/17 00:30 Duoneb 0.5 Mg-3 Mg/3 Ml Soln INHALATION RT-QID PRN Shortness Of Breath Or Wheezing Albuterol/Ipratropium 3 ml 07/31/17 08:00 07/31/17 20:37 Duoneb 0.5 Mg-3 Mg/3 Ml Soln INHALATION 3 ml RT-QID AICHA Administration Aspirin 81 mg 07/31/17 09:00 07/31/17 08:21 Aspirin PO 81 mg QAM AICHA Administration Atorvastatin Calcium 40 mg 07/31/17 21:00 07/31/17 20:32 Lipitor PO 40 mg HS AICHA Administration Budesonide/Formoterol Fumarate 2 puff 07/31/17 20:00 07/31/17 20:37 Symbicort 160-4.5 Mcg Inhaler INHALATION 2 puff RT-BID AICHA Administration Cholecalciferol 2,000 unit 07/31/17 09:00 07/31/17 08:21 Vitamin D3 PO 2,000 unit QAM AICHA Administration Clonazepam 0.5 mg 07/30/17 21:47 07/31/17 20:45 Klonopin PO 0.5 mg HS PRN Administration restless leg Al Hydroxide/Mg Hydroxide 30 0 ml 07/31/17 13:36 07/31/17 21:03 ml/ Diphenhydramine HCl 75 mg/ PO 5 ml Lidocaine HCl 30 ml TID PRN Administration Dry Mouth Furosemide 40 mg 07/31/17 21:00 07/31/17 20:54 Lasix IV 40 mg Q12HR AICHA Administration Heparin Sodium (Porcine) 5,000 unit 07/31/17 08:00 07/31/17 17:21 Heparin SQ 5,000 unit Q8HR AICHA Administration Ibuprofen 600 mg 07/31/17 06:24 07/31/17 10:35 Motrin PO 600 mg Q8HR PRN Administration MILD Pain Insulin Aspart 0 unit 07/31/17 00:12 07/31/17 20:58 Novolog SQ 6 unit ACHS AICHA Administration Protocol Insulin Human Isoph/Insulin Regular 40 unit 07/31/17 07:30 07/31/17 17:21 Humulin 70/30 Vial SQ 40 unit AC-BID AICHA Administration Magnesium Oxide 400 mg 07/31/17 21:00 07/31/17 20:33 Mag-Ox PO 400 mg HS AICHA Administration Metolazone 5 mg 07/31/17 09:00 07/31/17 08:21 Zaroxolyn PO 5 mg DAILY AICHA Administration Metoprolol Succinate 25 mg 07/31/17 09:00 07/31/17 08:21 Toprol Xl PO 25 mg DAILY AICHA Administration Multivitamins 1 each 07/31/17 09:00 07/31/17 08:21 Theragran PO 1 each QAM AICHA Administration Nitroglycerin 0.4 mg 07/30/17 21:56 Nitrostat SUBLINGUAL Q5M PRN Chest Pain Pioglitazone HCl 15 mg 07/31/17 21:00 07/31/17 20:33 Actos PO 15 mg HS AICHA Administration Prednisone 20 mg 08/01/17 09:00 PO DAILY AICHA Ropinirole HCl 1 mg 07/31/17 21:00 07/31/17 20:32 Requip PO 1 mg HS AICHA Administration Objective - Vital Signs Vital signs: Vital Signs Temp 96.9 F L 08/02/17 20:00 Pulse 93 08/02/17 20:00 Resp 18 08/02/17 20:00 BP 103/51 08/02/17 20:00 Pulse Ox 93 L 08/02/17 20:00 Intake & Output 08/02/17 08/02/17 08/03/17 06:59 18:59 06:59 Intake Total 1080 Output Total 1400 2000 Balance -1400 -920 Weight 93.2 kg Intake: Oral 1080 Output: Urine 1400 2000 Other: Voiding Method Bedside Commode Bedside Commode Toilet Bedside Commode # Voids 1 - Exam PHYSICAL EXAMINATION: Patient is lying in the bed comfortably, no acute distress, awake alert and oriented.. HEENT: Normocephalic. Neck is supple. Pupils reactive. Nostrils clear. Oral cavity is moist. Ears reveal no drainage. Neck reveals no JVD, carotid bruits, or thyromegaly. CHEST EXAMINATION: Trachea is central. Symmetrical expansion. Bibasilar air entry improved with minimal basilar crackles and expiratory wheezing CARDIAC: Normal S1, S2 with no gallops. No murmurs ABDOMEN: Soft. Bowel sounds normal. No organomegaly. No abdominal bruits. Extremities: 2+ edema bilateral lower extremity with one blister. No clubbing or cyanosis Neurologically awake, alert, oriented x3 with well-coordinated movements. No focal deficits noted Skin: No rash or skin lesions. Psychiatric: Cooperative. Nonsuicidal Musculoskeletal: No joint swelling or deformity. Normal range of motion. - Labs CBC & Chem 7: 08/03/17 05:31 08/03/17 05:31 Labs: Abnormal Lab Results - Last 24 Hours (Table) 08/01/17 08/02/17 08/02/17 Range/Units 21:02 05:43 05:43 Plt Count 121 L (150-450) k/uL Potassium 2.9 L* (3.5-5.1) mmol/L Carbon Dioxide 31 H (22-30) mmol/L BUN 52 H (7-17) mg/dL Glucose 49 L* (74-99) mg/dL POC Glucose (mg/dL) 216 H (75-99) mg/dL 08/02/17 08/02/17 08/02/17 Range/Units 06:03 06:20 11:42 Plt Count (150-450) k/uL Potassium (3.5-5.1) mmol/L Carbon Dioxide (22-30) mmol/L BUN (7-17) mg/dL Glucose (74-99) mg/dL POC Glucose (mg/dL) 56 L 69 L 267 H (75-99) mg/dL 08/02/17 08/02/17 Range/Units 16:24 20:41 Plt Count (150-450) k/uL Potassium (3.5-5.1) mmol/L Carbon Dioxide (22-30) mmol/L BUN (7-17) mg/dL Glucose (74-99) mg/dL POC Glucose (mg/dL) 268 H 252 H (75-99) mg/dL Microbiology - Last 24 Hours (Table) 07/30/17 18:18 Blood Culture - Preliminary Blood No Growth after 72 hours Assessment and Plan Assessment: Pulmonary vascular congestion with acute CHF with diastolic dysfunction. Ejection fraction 55-60% Acute mild COPD exacerbation. Sarcoidosis not active Troponin leak unlikely acute coronary syndrome Chronic lower extremity edema and recent cellulitis Bilateral lower activity venostasis changes Hypertension diabetes type 2 History of CVA/TIA GERD hearing disorder Hyperlipidemia History of CO Hypothyroidism Tracheobronchomalacia Sjogrens syndrome Chronic inflammatory demyelinating polyneuropathy Moderate aortic stenosis Restless leg syndrome Osteoporosis Nonalcoholic hepatic steatosis with history of liver biopsy Anxiety and depression and claustrophobia DVT prophylaxis Plan: Patient be continued on breathing treatments. Steroids changed to prednisone 20 mg daily. Patient was given IV Lasix 40 mg 1 in the ER. We'll continue with the Lasix 40 mg every 12 and metolazone. Pulmonary and cardiology is on board. Continue with home medications and further recommendations based on the clinical course. Prognosis is guarded with multiple medical problems and comorbid conditions and complications. Time with Patient: Greater than 30
--- NOTE | 2017-08-04 00:40 | P.PN ---
Subjective Progress Note Date: 08/03/17 Principal diagnosis: Acute COPD and CHF exacerbation Patient is a 72-year-old female with a known history of COPD, sarcoidosis, tracheobronchomalacia, Sjogren's syndrome, history of OK, hypertension, diabetes type 2 and multiple other medical problems came to ER with complaints of worsening shortness of breath and exertional dyspnea. Patient also having cough without much sputum production. Patient follows with Dr. Bernstein in the clinic. Patient recently completed steroid tapering dose about 2 days ago. Patient is on prednisone 5 mg daily as a maintenance dose. Otherwise patient denied any fever or chills. No chest pain. Patient does have chronic lower extremity edema and was recently treated for lower extremity wounds and cellulitis. BNP 480 Troponin 0.069 and 0.091 Chest x-ray showed congestive heart failure and pulmonary edema new compared to previous exam EKG showed normal sinus rhythm 07/31/2017 Patient breathing status is slightly improved. Otherwise still having shortness of breath with them relation. Chest x-ray showed CHF and pulmonary vascular congestion. Patient will be started on Lasix 40 mg every 12. Cardiology has been consulted. Patient was seen by pulmonary. Currently on breathing treatments and steroids changed to prednisone 20 mg daily. No fever no chills. Patient is able to sit on the side of the bed. No other acute overnight issues. 08/01/2017 Patient's breathing status is improving. No complaints of chest pain. Patient is still having leg swelling. Currently being continued on IV Lasix. 2-D echocardiogram showed EF between 55-60%, mild aortic regurgitation, moderate aortic stenosis, moderate mitral and tricuspid regurgitation. Mild pulmonary hypertension with right ventricular systolic pressure of 40.9 mmHg. Trivial amount of pericardial effusion present. Pulmonary and cardiology is following. 08/02/2017 Patient's breathing status is slightly improved otherwise patient is still having significant leg swelling and small blister 1. Continued on IV Lasix and cardiology is following. 08/03/2017 Patient was pretty status improved well. Otherwise still having significant leg swelling and also left lower activity erythema noted. Concern for any possible cellulitis as well. Patient does have a history of cellulitis in the past. Otherwise hemodynamically stable. Increased BUN level. No fever no chills. No other acute overnight issues. All other review of systems negative except the above. Active Medications Generic Name Dose Route Start Last Admin Trade Name Freq PRN Reason Stop Dose Admin Hydrocodone Bitart/Acetaminophen 1 each 07/31/17 06:24 07/31/17 20:45 [place] 7.5-325 PO 1 each Q4H PRN Administration SEVERE Pain Hydrocodone Bitart/Acetaminophen 1 each 07/31/17 06:31 [place] 7.5-325 PO Q6H PRN MODERATE Pain Albuterol/Ipratropium 3 ml 07/31/17 00:30 Duoneb 0.5 Mg-3 Mg/3 Ml Soln INHALATION RT-QID PRN Shortness Of Breath Or Wheezing Albuterol/Ipratropium 3 ml 07/31/17 08:00 07/31/17 20:37 Duoneb 0.5 Mg-3 Mg/3 Ml Soln INHALATION 3 ml RT-QID AICHA Administration Aspirin 81 mg 07/31/17 09:00 07/31/17 08:21 Aspirin PO 81 mg QAM AICHA Administration Atorvastatin Calcium 40 mg 07/31/17 21:00 07/31/17 20:32 Lipitor PO 40 mg HS AICHA Administration Budesonide/Formoterol Fumarate 2 puff 07/31/17 20:00 07/31/17 20:37 Symbicort 160-4.5 Mcg Inhaler INHALATION 2 puff RT-BID AICHA Administration Cholecalciferol 2,000 unit 07/31/17 09:00 07/31/17 08:21 Vitamin D3 PO 2,000 unit QAM AICHA Administration Clonazepam 0.5 mg 07/30/17 21:47 07/31/17 20:45 Klonopin PO 0.5 mg HS PRN Administration restless leg Al Hydroxide/Mg Hydroxide 30 0 ml 07/31/17 13:36 07/31/17 21:03 ml/ Diphenhydramine HCl 75 mg/ PO 5 ml Lidocaine HCl 30 ml TID PRN Administration Dry Mouth Furosemide 40 mg 07/31/17 21:00 07/31/17 20:54 Lasix IV 40 mg Q12HR AICHA Administration Heparin Sodium (Porcine) 5,000 unit 07/31/17 08:00 07/31/17 17:21 Heparin SQ 5,000 unit Q8HR AICHA Administration Ibuprofen 600 mg 07/31/17 06:24 07/31/17 10:35 Motrin PO 600 mg Q8HR PRN Administration MILD Pain Insulin Aspart 0 unit 07/31/17 00:12 07/31/17 20:58 Novolog SQ 6 unit ACHS AICHA Administration Protocol Insulin Human Isoph/Insulin Regular 40 unit 07/31/17 07:30 07/31/17 17:21 Humulin 70/30 Vial SQ 40 unit AC-BID AICHA Administration Magnesium Oxide 400 mg 07/31/17 21:00 07/31/17 20:33 Mag-Ox PO 400 mg HS AICHA Administration Metolazone 5 mg 07/31/17 09:00 07/31/17 08:21 Zaroxolyn PO 5 mg DAILY AICHA Administration Metoprolol Succinate 25 mg 07/31/17 09:00 07/31/17 08:21 Toprol Xl PO 25 mg DAILY AICHA Administration Multivitamins 1 each 07/31/17 09:00 07/31/17 08:21 Theragran PO 1 each QAM AICHA Administration Nitroglycerin 0.4 mg 07/30/17 21:56 Nitrostat SUBLINGUAL Q5M PRN Chest Pain Pioglitazone HCl 15 mg 07/31/17 21:00 07/31/17 20:33 Actos PO 15 mg HS AICHA Administration Prednisone 20 mg 08/01/17 09:00 PO DAILY AICHA Ropinirole HCl 1 mg 07/31/17 21:00 07/31/17 20:32 Requip PO 1 mg HS AICHA Administration Objective - Vital Signs Vital signs: Vital Signs Temp 97.8 F 08/03/17 20:00 Pulse 86 08/03/17 20:00 Resp 18 08/03/17 20:00 BP 108/55 08/03/17 20:00 Pulse Ox 99 08/03/17 20:00 Intake & Output 08/03/17 08/03/17 08/04/17 06:59 18:59 06:59 Intake Total 20 720 10 Output Total 1350 Balance 20 -630 10 Weight 91.8 kg Intake: IV 20 0 10 0.9 20 0 10 Oral 720 Output: Urine 1350 Other: Voiding Method Toilet Toilet Toilet Bedside Commode Bedside Commode Bedside Commode # Voids 750 1 - Exam PHYSICAL EXAMINATION: Patient is lying in the bed comfortably, no acute distress, awake alert and oriented.. HEENT: Normocephalic. Neck is supple. Pupils reactive. Nostrils clear. Oral cavity is moist. Ears reveal no drainage. Neck reveals no JVD, carotid bruits, or thyromegaly. CHEST EXAMINATION: Trachea is central. Symmetrical expansion. Clear to auscultation except minimal basilar crackles CARDIAC: Normal S1, S2 with no gallops. No murmurs ABDOMEN: Soft. Bowel sounds normal. No organomegaly. No abdominal bruits. Extremities: 2+ edema bilateral lower extremity with one blister. No clubbing or cyanosis Neurologically awake, alert, oriented x3 with well-coordinated movements. No focal deficits noted Skin: No rash or skin lesions. Psychiatric: Cooperative. Nonsuicidal Musculoskeletal: No joint swelling or deformity. Normal range of motion. - Labs CBC & Chem 7: 08/03/17 05:31 08/03/17 05:31 Labs: Abnormal Lab Results - Last 24 Hours (Table) 08/03/17 08/03/17 08/03/17 Range/Units 05:31 05:31 06:35 Plt Count 106 L (150-450) k/uL Carbon Dioxide 34 H (22-30) mmol/L BUN 47 H (7-17) mg/dL Glucose 160 H (74-99) mg/dL POC Glucose (mg/dL) 142 H (75-99) mg/dL 08/03/17 08/03/17 08/03/17 Range/Units 11:48 16:39 20:43 Plt Count (150-450) k/uL Carbon Dioxide (22-30) mmol/L BUN (7-17) mg/dL Glucose (74-99) mg/dL POC Glucose (mg/dL) 63 L 310 H 218 H (75-99) mg/dL Microbiology - Last 24 Hours (Table) 07/30/17 18:18 Blood Culture - Preliminary Blood No Growth after 96 hours Assessment and Plan Assessment: Pulmonary vascular congestion with acute CHF with diastolic dysfunction. Ejection fraction 55-60% Acute mild COPD exacerbation. Sarcoidosis not active Troponin leak unlikely acute coronary syndrome Chronic lower extremity edema and recent cellulitis Bilateral lower activity venostasis changes Hypertension diabetes type 2 History of CVA/TIA GERD hearing disorder Hyperlipidemia History of [place] Hypothyroidism Tracheobronchomalacia Sjogrens syndrome Chronic inflammatory demyelinating polyneuropathy Moderate aortic stenosis Restless leg syndrome Osteoporosis Nonalcoholic hepatic steatosis with history of liver biopsy Anxiety and depression and claustrophobia DVT prophylaxis Plan: Patient be continued on breathing treatments. Steroids changed to prednisone 20 mg daily. Patient was given IV Lasix 40 mg 1 in the ER. We'll continue with the Lasix 40 mg every 12 and metolazone. Pulmonary and cardiology is on board. Continue with home medications and further recommendations based on the clinical course. Prognosis is guarded with multiple medical problems and comorbid conditions and complications. Time with Patient: Greater than 30
[2017-08-04] MEDS: INSULIN ASPART 100 UNIT/ML 1 ML 10 ML VIAL SQ SCH ×4 (06:30→21:14)
[2017-08-04] MEDS: HYDROcodone/APAP 7.5-325MG 1 EACH TAB PO PRN ×3 (06:32→19:32)
[2017-08-04] MEDS: IBUPROFEN 600 MG TAB PO PRN ×2 (06:32→19:31)
[2017-08-04 06:42] LABS: Glucose,Whole Blood 177 mg/dL (75-99)
[2017-08-04 06:43] LABS: Basophils % (A) 0 %; Eosinophils # (A) 0.3 k/uL (0-0.7); Eosinophils % (A) 5 %; HCT 36.5 % (34.0-46.0); HGB 11.9 gm/dL (11.4-16.0); Lymphocytes % (A) 19 %; MCH 31.3 pg (25.0-35.0); MCHC 32.7 g/dL (31.0-37.0); MCV 95.6 fL (80.0-100.0); Mean Platelet Volume 7.4; Monocytes # (A) 0.4 k/uL (0-1.0); Monocytes % (A) 7 %; Neutrophils # (A) 3.6 k/uL (1.3-7.7); Neutrophils % (A) 67 %; RBC 3.82 m/uL (3.80-5.40); RDW 14.2 % (11.5-15.5); WBC 5.4 k/uL (3.8-10.6)
[2017-08-04 06:49] LABS: Anion Gap 10 mmol/L; Blood Urea Nitrogen 46 mg/dL (7-17); Calcium 9.2 mg/dL (8.4-10.2); Carbon Dioxide 34 mmol/L (22-30); Chloride 98 mmol/L (98-107); Glucose 183 mg/dL (74-99); Potassium 3.4 mmol/L (3.5-5.1); Sodium 142 mmol/L (137-145)
[2017-08-04 07:21] LABS: Platelet Count 93 k/uL (150-450)
[2017-08-04] MEDS: INSULIN NPH/REG INSULIN 70/30 300 UNIT/3 ML VIAL SQ SCH ×2 (07:23→17:20)
[2017-08-04] MEDS: METOPROLOL SUCCINATE (ER) 25 MG TAB.ER.24H PO SCH (08:26)
[2017-08-04] MEDS: ASPIRIN 81 MG PO SCH (08:26)
[2017-08-04] MEDS: CHOLECALCIFEROL 1,000 UNIT TAB PO SCH (08:26)
[2017-08-04] MEDS: HEPARIN SODIUM,PORCINE 5,000 UNIT/ML 1 ML VIAL SQ SCH ×3 (08:26→22:26)
[2017-08-04] MEDS: MULTIVITAMINS, THERA 1 EACH TAB PO SCH (08:26)
[2017-08-04] MEDS: METOLAZONE 5 MG TAB PO SCH (08:26)
[2017-08-04] MEDS: FUROSEMIDE 10 MG/ML 4 ML VIAL IV SCH ×2 (08:26→21:14)
[2017-08-04] MEDS: predniSONE 20 MG TAB PO SCH (08:26)
[2017-08-04] MEDS: IPRATROPIUM-ALBUTEROL 3 ML NEB INHALATION SCH ×4 (08:50→20:02)
[2017-08-04] MEDS: SYMBICORT 160-4.5 MCG INHALER INHALATION SCH ×2 (08:50→20:01)
[2017-08-04] MEDS ORDERED: Alendronate Sodium [Fosamax] 70 MG PO SCH (09:00)
--- NOTE | 2017-08-04 10:57 | PN ---
PROGRESS NOTE DATE OF SERVICE: 08/04/2017. HISTORY: Ms. Gutierrez is a 72-year-old female who follows with Dr. Henderson. She has history of sarcoidosis and COPD, who presented with worsening dyspnea and worsening peripheral edema. She is feeling better today. She has lost weight. She denies any chest pain. Her breathing is stable. She denies any dizziness or palpitations. She denies any nausea. She underwent an echocardiogram that revealed a preserved systolic function with moderate aortic stenosis and mild pulmonary hypertension. She continues to be, at this time, on aspirin once a day, Lipitor 40 mg daily, furosemide 40 mg IV every 12 hours, magnesium, metalazone 5 mg daily, metoprolol succinate 25 mg daily, and prednisone. PHYSICAL EXAMINATION: Blood pressure 115/50 with a heart in 70s. LUNGS: Decreased air exchange with no wheezes. HEART: S1, S2 with a systolic murmur at the base, ejection type, no diastolic murmur, no rub. ABDOMEN: Soft, obese, nontender. EXTREMITIES: 1+ edema with mild erythema. LAB DATA: BUN and creatinine 46 and 0.7, potassium 3.4, hemoglobin of 11.9. She is down 2 kg since yesterday. IMPRESSION: 1. Symptoms of progressive dyspnea with an element of diastolic dysfunction heart failure. 2. History of sarcoidosis. 3. History of chronic obstructive pulmonary disease. 4. Hypertension. 5. Hyperlipidemia. RECOMMENDATIONS: From the cardiac standpoint, I will continue on the present dose of diuretics for another 24 hours and if she is stable, switch her to oral diuretics tomorrow. Hopefully to be discharged home soon to follow up with Dr. Henderson as an outpatient. MMODL / IJN: [id number] /
[2017-08-04 11:49] LABS: Glucose,Whole Blood 146 mg/dL (75-99)
--- NOTE | 2017-08-04 12:57 | P.PN ---
Subjective Progress Note Date: 08/04/17 Principal diagnosis: Shortness of breath/CHF Progress note dated 08/02/2017 72-year-old female who we saw in consultation at couple days ago shortness of breath. She does have history of COPD/asthma as well as a history of inactive sarcoidosis. The patient was admitted primarily with heart failure. She has significant shortness of breath orthopnea and lower extremity edema. She is feeling better. The patient is still on oxygen therapy. She's not coughing producing any phlegm. No fever or chills. No chest pain or chest discomfort. No wheezes or rhonchi. She does still have lower extremity edema but is improved. Progress note dated 08/03/2017 72-year-old female who came in with complaints of increasing shortness of breath as well as lower extremity edema and orthopnea. She could have heart failure primarily. She does have history of asthma/COPD as well as a history of inactive sarcoidosis. She is feeling better. Swelling is improved. Still has lower extremity edema and some erythema. The patient is breathing better. Cough is a bit more harsh. Not producing any phlegm. No fever chills chest pain chest discomfort or any other complaints for that matter. Progress note dated 08/04/2017 72-year-old female who came in with complaints of increasing shortness of breath as well as lower extremity edema and orthopnea. She was thought to have primarily heart failure. She does have a history of severe asthma as well as a history of inactive sarcoidosis. She also has a history of tracheomalacia. She is doing better. Each day is better. Swelling is much improved. She cannot lay flat. She still suffers smoke some edema. Coughing a bit. Not producing any phlegm. No fever or chills. No nausea vomiting or diarrhea. No chest pain or chest pressure. Objective - Vital Signs Vital signs: Vital Signs Temp 97.0 F L 08/04/17 12:00 Pulse 86 08/04/17 12:15 Resp 18 08/04/17 12:00 BP 131/55 08/04/17 12:00 Pulse Ox 97 08/04/17 12:00 Intake & Output 08/03/17 08/04/17 08/04/17 18:59 06:59 18:59 Intake Total 720 20 240 Output Total 1350 Balance -630 20 240 Weight 89.9 kg Intake: IV 0 20 0.9 0 20 Oral 720 240 Output: Urine 1350 Other: Voiding Method Toilet Toilet Bedside Commode Bedside Commode # Voids 1 - Exam No acute distress, oriented 3. Nasal O2 in place HEENT examination is grossly unremarkable. Mucous membranes are moist. No oral lesions. Neck supple. Full range of motion. No adenopathy thyromegaly or neck vein distention. Cardiovascular examination reveals regular rhythm rate. S1-S2 normal. No S3 or S4. No discernible murmur noted. Lungs reveal bibasilar crackles. Breath sounds are equal bilaterally but reduced throughout. No rhonchi or wheezes. Abdomen soft bowel sounds are heard. No masses or tenderness. Extremities are intact. There is bilateral lower extremity edema. It's 1-2+ pitting. Some mild areas of erythema. Skin is without rash or lesion. Neurologic examination is brief but nonfocal. - Labs CBC & Chem 7: 08/04/17 05:28 08/04/17 05:28 Labs: Abnormal Lab Results - Last 24 Hours (Table) 08/03/17 08/03/17 08/04/17 Range/Units 16:39 20:43 05:28 Plt Count (150-450) k/uL Potassium 3.4 L (3.5-5.1) mmol/L Carbon Dioxide 34 H (22-30) mmol/L BUN 46 H (7-17) mg/dL Glucose 183 H (74-99) mg/dL POC Glucose (mg/dL) 310 H 218 H (75-99) mg/dL 08/04/17 08/04/17 08/04/17 Range/Units 05:28 06:28 11:42 Plt Count 93 L (150-450) k/uL Potassium (3.5-5.1) mmol/L Carbon Dioxide (22-30) mmol/L BUN (7-17) mg/dL Glucose (74-99) mg/dL POC Glucose (mg/dL) 177 H 146 H (75-99) mg/dL Microbiology - Last 24 Hours (Table) 07/30/17 18:18 Blood Culture - Preliminary Blood No Growth after 96 hours Assessment and Plan Assessment: Assessment Shortness of breath, likely secondary to CHF exacerbation although, her COPD could be a component as well. Don't suspect infection at this time. Sarcoid is inactive. 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 Plan: Plan dated 07/31/2017 The patient's medications are reviewed. Chest x-rays reviewed. Cardiology will be consulted. The patient on medications for COPD as well. I don't believe she needs antibiotics at this time. She has completed that. We will give her a small dose of prednisone as well. Additional recommendations and suggestions are forthcoming. She is very tearful today. Prognosis is guarded. Plan dated 08/02/2017 The patient's medications and x-rays are reviewed. Cardiology has seen the patient. Continue to follow. Medications have been reviewed. She also usual breathing medications. We'll continue to follow closely. Labs and x-rays are reviewed. Plan dated 08/03/2017 The patient seemed be doing better. Her breathing has improved. She is complaining less of swelling. Minimal cough. Not producing any phlegm. No fever chills chest pain or chest discomfort. She does have some swelling in the lower extremities which is improving obvious slowly. She also has a couple of lesions on her left leg that she was concerned about. They look relatively benign to me. Plan dated 08/04/2017 The patient continues to improve. Her but has been slow low. She still suffers some lower extremity edema. That's improved. Her breathing has greatly improved. She denies any nausea vomiting or diarrhea. No chest pain or pressure. Coughing a bit. Not producing any phlegm. Not coughing up any blood. We will continue with the current treatment. Labs x-rays and medications are all reviewed. Time with Patient: Less than 30
[2017-08-04 16:37] LABS: Glucose,Whole Blood 211 mg/dL (75-99)
[2017-08-04 19:58] VITALS: RESP 18
[2017-08-04 21:10] LABS: Glucose,Whole Blood 204 mg/dL (75-99)
[2017-08-04] MEDS: MAGNESIUM OXIDE 400 MG TAB PO SCH (21:14)
[2017-08-04] MEDS: ATORVASTATIN 40 MG TAB PO SCH (21:14)
--- NOTE | 2017-08-04 22:13 | P.PN ---
Subjective Progress Note Date: 08/04/17 Principal diagnosis: Acute COPD and CHF exacerbation Patient is a 72-year-old female with a known history of COPD, sarcoidosis, tracheobronchomalacia, Sjogren's syndrome, history of VT, hypertension, diabetes type 2 and multiple other medical problems came to ER with complaints of worsening shortness of breath and exertional dyspnea. Patient also having cough without much sputum production. Patient follows with Dr. Bernstein in the clinic. Patient recently completed steroid tapering dose about 2 days ago. Patient is on prednisone 5 mg daily as a maintenance dose. Otherwise patient denied any fever or chills. No chest pain. Patient does have chronic lower extremity edema and was recently treated for lower extremity wounds and cellulitis. BNP 480 Troponin 0.069 and 0.091 Chest x-ray showed congestive heart failure and pulmonary edema new compared to previous exam EKG showed normal sinus rhythm 07/31/2017 Patient breathing status is slightly improved. Otherwise still having shortness of breath with them relation. Chest x-ray showed CHF and pulmonary vascular congestion. Patient will be started on Lasix 40 mg every 12. Cardiology has been consulted. Patient was seen by pulmonary. Currently on breathing treatments and steroids changed to prednisone 20 mg daily. No fever no chills. Patient is able to sit on the side of the bed. No other acute overnight issues. 08/01/2017 Patient's breathing status is improving. No complaints of chest pain. Patient is still having leg swelling. Currently being continued on IV Lasix. 2-D echocardiogram showed EF between 55-60%, mild aortic regurgitation, moderate aortic stenosis, moderate mitral and tricuspid regurgitation. Mild pulmonary hypertension with right ventricular systolic pressure of 40.9 mmHg. Trivial amount of pericardial effusion present. Pulmonary and cardiology is following. 08/02/2017 Patient's breathing status is slightly improved otherwise patient is still having significant leg swelling and small blister 1. Continued on IV Lasix and cardiology is following. 08/03/2017 Patient was pretty status improved well. Otherwise still having significant leg swelling and also left lower activity erythema noted. Concern for any possible cellulitis as well. Patient does have a history of cellulitis in the past. Otherwise hemodynamically stable. Increased BUN level. No fever no chills. No other acute overnight issues. 08/04/2017 Patient breathing status is much improved. Otherwise leg swelling is improving as well. Continue with IV Lasix for one more day and pulmonary and cardiology is following. No acute overnight issues. No fever no chills. All other review of systems negative except the above. Active Medications Generic Name Dose Route Start Last Admin Trade Name Freq PRN Reason Stop Dose Admin Hydrocodone Bitart/Acetaminophen 1 each 07/31/17 06:24 07/31/17 20:45 [place] 7.5-325 PO 1 each Q4H PRN Administration SEVERE Pain Hydrocodone Bitart/Acetaminophen 1 each 07/31/17 06:31 [place] 7.5-325 PO Q6H PRN MODERATE Pain Albuterol/Ipratropium 3 ml 07/31/17 00:30 Duoneb 0.5 Mg-3 Mg/3 Ml Soln INHALATION RT-QID PRN Shortness Of Breath Or Wheezing Albuterol/Ipratropium 3 ml 07/31/17 08:00 07/31/17 20:37 Duoneb 0.5 Mg-3 Mg/3 Ml Soln INHALATION 3 ml RT-QID AICHA Administration Aspirin 81 mg 07/31/17 09:00 07/31/17 08:21 Aspirin PO 81 mg QAM AICHA Administration Atorvastatin Calcium 40 mg 07/31/17 21:00 07/31/17 20:32 Lipitor PO 40 mg HS AICHA Administration Budesonide/Formoterol Fumarate 2 puff 07/31/17 20:00 07/31/17 20:37 Symbicort 160-4.5 Mcg Inhaler INHALATION 2 puff RT-BID AICHA Administration Cholecalciferol 2,000 unit 07/31/17 09:00 07/31/17 08:21 Vitamin D3 PO 2,000 unit QAM AICHA Administration Clonazepam 0.5 mg 07/30/17 21:47 07/31/17 20:45 Klonopin PO 0.5 mg HS PRN Administration restless leg Al Hydroxide/Mg Hydroxide 30 0 ml 07/31/17 13:36 07/31/17 21:03 ml/ Diphenhydramine HCl 75 mg/ PO 5 ml Lidocaine HCl 30 ml TID PRN Administration Dry Mouth Furosemide 40 mg 07/31/17 21:00 07/31/17 20:54 Lasix IV 40 mg Q12HR AICHA Administration Heparin Sodium (Porcine) 5,000 unit 07/31/17 08:00 07/31/17 17:21 Heparin SQ 5,000 unit Q8HR AICHA Administration Ibuprofen 600 mg 07/31/17 06:24 07/31/17 10:35 Motrin PO 600 mg Q8HR PRN Administration MILD Pain Insulin Aspart 0 unit 07/31/17 00:12 07/31/17 20:58 Novolog SQ 6 unit ACHS AICHA Administration Protocol Insulin Human Isoph/Insulin Regular 40 unit 07/31/17 07:30 07/31/17 17:21 Humulin 70/30 Vial SQ 40 unit AC-BID AICHA Administration Magnesium Oxide 400 mg 07/31/17 21:00 07/31/17 20:33 Mag-Ox PO 400 mg HS AICHA Administration Metolazone 5 mg 07/31/17 09:00 07/31/17 08:21 Zaroxolyn PO 5 mg DAILY AICHA Administration Metoprolol Succinate 25 mg 07/31/17 09:00 07/31/17 08:21 Toprol Xl PO 25 mg DAILY AICHA Administration Multivitamins 1 each 07/31/17 09:00 07/31/17 08:21 Theragran PO 1 each QAM AICHA Administration Nitroglycerin 0.4 mg 07/30/17 21:56 Nitrostat SUBLINGUAL Q5M PRN Chest Pain Pioglitazone HCl 15 mg 07/31/17 21:00 07/31/17 20:33 Actos PO 15 mg HS AICHA Administration Prednisone 20 mg 08/01/17 09:00 PO DAILY AICHA Ropinirole HCl 1 mg 07/31/17 21:00 07/31/17 20:32 Requip PO 1 mg HS AICHA Administration Objective - Vital Signs Vital signs: Vital Signs Temp 98.8 F 08/04/17 15:48 Pulse 87 08/04/17 15:48 Resp 20 08/04/17 15:48 BP 112/59 08/04/17 15:48 Pulse Ox 93 L 08/04/17 15:48 Intake & Output 08/03/17 08/04/17 08/04/17 18:59 06:59 18:59 Intake Total 720 20 480 Output Total 1350 550 Balance -630 20 -70 Weight 89.9 kg Intake: IV 0 20 0.9 0 20 Oral 720 480 Output: Urine 1350 550 Other: Voiding Method Toilet Toilet Bedside Commode Bedside Commode # Voids 1 1 - Exam PHYSICAL EXAMINATION: Patient is lying in the bed comfortably, no acute distress, awake alert and oriented.. HEENT: Normocephalic. Neck is supple. Pupils reactive. Nostrils clear. Oral cavity is moist. Ears reveal no drainage. Neck reveals no JVD, carotid bruits, or thyromegaly. CHEST EXAMINATION: Trachea is central. Symmetrical expansion. Clear to auscultation except minimal basilar crackles CARDIAC: Normal S1, S2 with no gallops. No murmurs ABDOMEN: Soft. Bowel sounds normal. No organomegaly. No abdominal bruits. Extremities: 2+ edema bilateral lower extremity erythema with one blister. No clubbing or cyanosis Neurologically awake, alert, oriented x3 with well-coordinated movements. No focal deficits noted Skin: No rash or skin lesions. Psychiatric: Cooperative. Nonsuicidal Musculoskeletal: No joint swelling or deformity. Normal range of motion. - Labs CBC & Chem 7: 08/04/17 05:28 08/04/17 05:28 Labs: Abnormal Lab Results - Last 24 Hours (Table) 08/03/17 08/03/17 08/04/17 Range/Units 16:39 20:43 05:28 Plt Count (150-450) k/uL Potassium 3.4 L (3.5-5.1) mmol/L Carbon Dioxide 34 H (22-30) mmol/L BUN 46 H (7-17) mg/dL Glucose 183 H (74-99) mg/dL POC Glucose (mg/dL) 310 H 218 H (75-99) mg/dL 08/04/17 08/04/17 08/04/17 Range/Units 05:28 06:28 11:42 Plt Count 93 L (150-450) k/uL Potassium (3.5-5.1) mmol/L Carbon Dioxide (22-30) mmol/L BUN (7-17) mg/dL Glucose (74-99) mg/dL POC Glucose (mg/dL) 177 H 146 H (75-99) mg/dL Microbiology - Last 24 Hours (Table) 07/30/17 18:18 Blood Culture - Preliminary Blood No Growth after 96 hours Assessment and Plan Assessment: Pulmonary vascular congestion with acute CHF with diastolic dysfunction. Ejection fraction 55-60% Acute mild COPD exacerbation. Sarcoidosis not active Troponin leak unlikely acute coronary syndrome Chronic lower extremity edema and recent cellulitis Bilateral lower activity venostasis changes Hypertension diabetes type 2 History of CVA/TIA GERD hearing disorder Hyperlipidemia History of [place] Hypothyroidism Tracheobronchomalacia Sjogrens syndrome Chronic inflammatory demyelinating polyneuropathy Moderate aortic stenosis Restless leg syndrome Osteoporosis Nonalcoholic hepatic steatosis with history of liver biopsy Anxiety and depression and claustrophobia DVT prophylaxis Plan: Patient be continued on breathing treatments. Steroids changed to prednisone 20 mg daily. Patient was given IV Lasix 40 mg 1 in the ER. We'll continue with the Lasix 40 mg every 12 and metolazone. Pulmonary and cardiology is on board. Continue with home medications and further recommendations based on the clinical course. Prognosis is guarded with multiple medical problems and comorbid conditions and complications. Time with Patient: Greater than 30
[2017-08-04] MEDS: clonazePAM 0.5 MG TAB PO PRN (22:26)
[2017-08-05] MEDS: HYDROcodone/APAP 7.5-325MG 1 EACH TAB PO PRN ×5 (00:59→17:09)
[2017-08-05] MEDS: IBUPROFEN 600 MG TAB PO PRN (05:36)
[2017-08-05] MEDS: INSULIN ASPART 100 UNIT/ML 1 ML 10 ML VIAL SQ SCH ×3 (06:09→17:09)
[2017-08-05 06:10] LABS: Glucose,Whole Blood 134 mg/dL (75-99)
[2017-08-05 06:24] LABS: Basophils % (A) 0 %; Eosinophils # (A) 0.3 k/uL (0-0.7); Eosinophils % (A) 4 %; HCT 38.3 % (34.0-46.0); HGB 12.3 gm/dL (11.4-16.0); Lymphocytes % (A) 15 %; MCH 30.5 pg (25.0-35.0); MCHC 32.2 g/dL (31.0-37.0); MCV 94.9 fL (80.0-100.0); Mean Platelet Volume 7.6; Monocytes # (A) 0.5 k/uL (0-1.0); Monocytes % (A) 7 %; Neutrophils # (A) 4.8 k/uL (1.3-7.7); Neutrophils % (A) 73 %; RBC 4.03 m/uL (3.80-5.40); RDW 14.2 % (11.5-15.5); WBC 6.6 k/uL (3.8-10.6)
[2017-08-05 06:32] LABS: Platelet Count 97 k/uL (150-450)
[2017-08-05 06:34] LABS: Calcium 9.5 mg/dL (8.4-10.2); Potassium 3.4 mmol/L (3.5-5.1)
[2017-08-05] MEDS: INSULIN NPH/REG INSULIN 70/30 300 UNIT/3 ML VIAL SQ SCH ×2 (08:40→17:10)
[2017-08-05] MEDS: HEPARIN SODIUM,PORCINE 5,000 UNIT/ML 1 ML VIAL SQ SCH ×2 (08:40→16:30)
[2017-08-05] MEDS: ASPIRIN 81 MG PO SCH (08:41)
[2017-08-05] MEDS: FUROSEMIDE 10 MG/ML 4 ML VIAL IV SCH (08:43)
[2017-08-05] MEDS: METOPROLOL SUCCINATE (ER) 25 MG TAB.ER.24H PO SCH (08:43)
[2017-08-05] MEDS: METOLAZONE 5 MG TAB PO SCH (08:44)
[2017-08-05] MEDS: MULTIVITAMINS, THERA 1 EACH TAB PO SCH (08:44)
[2017-08-05] MEDS: predniSONE 20 MG TAB PO SCH (08:44)
[2017-08-05] MEDS: SYMBICORT 160-4.5 MCG INHALER INHALATION SCH (08:46)
[2017-08-05] MEDS: IPRATROPIUM-ALBUTEROL 3 ML NEB INHALATION SCH ×3 (08:46→16:06)
[2017-08-05] MEDS: CHOLECALCIFEROL 1,000 UNIT TAB PO SCH (11:05)
[2017-08-05] MEDS: POTASSIUM CHLORIDE ER 20 MEQ TAB.ER PO SCH ×2 (11:05→11:56)
[2017-08-05 12:10] VITALS: BP 126/58; TEMP 97.1
[2017-08-05 12:14] LABS: Glucose,Whole Blood 131 mg/dL (75-99)
[2017-08-05 13:27] VITALS: PULSE 80
--- NOTE | 2017-08-05 14:21 | P.PN ---
Subjective Progress Note Date: 08/05/17 Principal diagnosis: CHF This is a pleasant 72-year-old female who follows with Dr. Henderson in the office, she has known history of sarcoidosis, COPD, hypertension, diabetes, hyperlipidemia, presented to the hospital with symptoms of progressively worsening dyspnea. She has been treated for exacerbation as well as congestive heart failure. Patient was seen and examined this morning, lying flat in bed at the time of my examination. Her weight today is down 2 kg, BUN 47, creatinine 0.8. Breathing is significantly improved overall. I pressure this morning 108/60 with heart rate in the 70s. 95% on room air. 08/05/2017 She was seen and examined this morning, overall doing well. Breathing is significantly improved. Her weight is down 2 kg today. Potassium 3.4, BUN 43, creatinine 0.8. We will discontinue the IV Lasix today and start the patient on oral diuretics. She may be able to be discharged once cleared by primary. We will make her a follow-up appointment with Dr. Henderson in the office post discharge. Objective - Vital Signs Vital signs: Vital Signs Temp 97.1 F L 08/05/17 12:00 Pulse 80 08/05/17 13:26 Resp 18 08/05/17 12:00 BP 126/58 08/05/17 12:00 Pulse Ox 97 08/05/17 12:00 Intake & Output 08/04/17 08/05/17 08/05/17 18:59 06:59 18:59 Intake Total 720 20 480 Output Total 550 1700 Balance 170 -1680 480 Weight 87.8 kg Intake: IV 20 0.9 20 Oral 720 480 Output: Urine 550 1700 Other: Voiding Method Toilet # Voids 1 - Exam PHYSICAL EXAMINATION: HEENT: Head is atraumatic, normocephalic. Pupils equal, round. Neck is supple. There is no elevated jugular venous pressure. HEART EXAMINATION: Heart S1 and S2 systolic murmur is heard. CHEST EXAMINATION: Lungs are clear to auscultation and precussion. No chest wall tenderness is noted on palpation or with deep breathing. ABDOMEN: Soft, nontender. Bowel sounds are heard. No organomegaly noted. EXTREMITIES:[ 2+ peripheral pulses with trace evidence of peripheral edema and evidence of bilateral chronic venous stasis noted NEUROLOGIC[patient is awake, alert and oriented -3] . - Labs CBC & Chem 7: 08/05/17 05:20 08/05/17 05:20 Labs: Abnormal Lab Results - Last 24 Hours (Table) 08/04/17 08/04/17 08/05/17 Range/Units 16:35 21:09 05:20 Plt Count (150-450) k/uL Potassium 3.4 L (3.5-5.1) mmol/L Chloride 96 L (98-107) mmol/L Carbon Dioxide 38 H (22-30) mmol/L BUN 43 H (7-17) mg/dL Glucose 139 H (74-99) mg/dL POC Glucose (mg/dL) 211 H 204 H (75-99) mg/dL 08/05/17 08/05/17 08/05/17 Range/Units 05:20 06:09 12:11 Plt Count 97 L (150-450) k/uL Potassium (3.5-5.1) mmol/L Chloride (98-107) mmol/L Carbon Dioxide (22-30) mmol/L BUN (7-17) mg/dL Glucose (74-99) mg/dL POC Glucose (mg/dL) 134 H 131 H (75-99) mg/dL Microbiology - Last 24 Hours (Table) 07/30/17 18:18 Blood Culture - Preliminary Blood No Growth after 120 hours Assessment and Plan Plan: Assessment and plan #1 congestive heart failure, acute on chronic,diastolic. #2 history of COPD with acute exacerbation #3 diabetes #4 hypertension #5 hyperlipidemia #6 sarcoidosis #7 Sjgren syndrome #8 aortic stenosis #9 hypothyroidism #10 prior myocardial infarction, patient states she's been told to have an [place] in the past, she also states that she has had a cardiac catheterization several years ago with no blockages at that time according to her. #11 history of TIA #12 history of thrombocytopenia #13 mild dementia #14 abnormal troponins, likely secondary.supply and demand mismatch, patient denies having any chest discomfort. EKG shows normal sinus rhythm with no acute changes. Cannot completely rule out underlying coronary artery disease. #15 aortic stenosis Plan We'll discontinue the IV Lasix and start the patient on diuretics. She may be able to be discharged from cardiology's perspective to follow-up with Dr. Walker in the office post discharge DNP note has been reviewed, I agree with a documented findings and plan of care. Patient was seen and examined.
[2017-08-05] MEDS ORDERED: POTASSIUM CHLORIDE ER 20 MEQ TAB.ER PO STA (15:12)
--- NOTE | 2017-08-05 15:14 | P.PN ---
Subjective Progress Note Date: 08/05/17 72-year-old female patient is being seen in follow-up regarding her COPD/asthma exacerbation. She has also a latent sarcoidosis. She is doing well. She has no specific complaints. Her shortness of breath is improved considerably. No cough or sputum production. No chest pain on today's evaluation. No fever or chills. She has also a component of tracheal bronchomalacia that was noted on previous bronchoscopies. The patient is currently on DuoNeb nebulized treatments on the clock, Symbicort, and a prednisone burst taper starting with 20 mg on a daily basis. She is typically on 5 mg of prednisone on outpatient basis. She is also diabetic. Objective - Vital Signs Vital signs: Vital Signs Temp 97.1 F L 08/05/17 12:00 Pulse 80 08/05/17 13:26 Resp 18 08/05/17 12:00 BP 126/58 08/05/17 12:00 Pulse Ox 97 08/05/17 12:00 Intake & Output 08/04/17 08/05/17 08/05/17 18:59 06:59 18:59 Intake Total 720 20 480 Output Total 550 1700 Balance 170 -1680 480 Weight 87.8 kg Intake: IV 20 0.9 20 Oral 720 480 Output: Urine 550 1700 Other: Voiding Method Toilet # Voids 1 - Exam No acute distress, oriented 3. Nasal O2 in place HEENT examination is grossly unremarkable. Mucous membranes are moist. No oral lesions. Neck supple. Full range of motion. No adenopathy thyromegaly or neck vein distention. Cardiovascular examination reveals regular rhythm rate. S1-S2 normal. No S3 or S4. No discernible murmur noted. Lungs reveal bibasilar crackles. Breath sounds are equal bilaterally but reduced throughout. No rhonchi or wheezes. Abdomen soft bowel sounds are heard. No masses or tenderness. Extremities are intact. There is bilateral lower extremity edema. It's 1-2+ pitting. Some mild areas of erythema. Skin is without rash or lesion. Neurologic examination is brief but nonfocal. - Labs CBC & Chem 7: 08/05/17 05:20 08/05/17 05:20 Labs: Abnormal Lab Results - Last 24 Hours (Table) 08/04/17 08/04/17 08/05/17 Range/Units 16:35 21:09 05:20 Plt Count (150-450) k/uL Potassium 3.4 L (3.5-5.1) mmol/L Chloride 96 L (98-107) mmol/L Carbon Dioxide 38 H (22-30) mmol/L BUN 43 H (7-17) mg/dL Glucose 139 H (74-99) mg/dL POC Glucose (mg/dL) 211 H 204 H (75-99) mg/dL 08/05/17 08/05/17 08/05/17 Range/Units 05:20 06:09 12:11 Plt Count 97 L (150-450) k/uL Potassium (3.5-5.1) mmol/L Chloride (98-107) mmol/L Carbon Dioxide (22-30) mmol/L BUN (7-17) mg/dL Glucose (74-99) mg/dL POC Glucose (mg/dL) 134 H 131 H (75-99) mg/dL Microbiology - Last 24 Hours (Table) 07/30/17 18:18 Blood Culture - Preliminary Blood No Growth after 120 hours Assessment and Plan Plan: Assessment 1 Shortness of breath, likely secondary to CHF exacerbation although, her COPD could be a component as well. Don't suspect infection at this time. Sarcoid is inactive. On today's evaluation the patient is feeling much better and she thinks her overall respiratory status is back to his baseline. The patient is good for discharge from the pulmonary standpoint to be followed up on outpatient basis in the office. She will complete a prednisone burst taper starting with 20 mg. 2 History of COPD 3 History of CAD 4 History of CVA 5 Diabetes mellitus 6 Gastroesophageal reflux disease 7 Hyperlipidemia 8 Hypertension 9 Previous history of myocardial infarction 10 History of tracheal bronchomalacia 11 History of sarcoid-related transverse myelitis 12 Skin cancer 13 Nonalcoholic steatohepatitis. Plan: Patient is stable clinically. The patient can be discharged home pulmonary pulmonary standpoint to be followed up in the office. Overall pulmonary status is stable and back to his baseline. Completed the prednisone burst taper.
[2017-08-05] MEDS ORDERED: FUROSEMIDE 20 MG TAB PO SCH (16:00)
--- NOTE | 2017-08-05 16:02 | P.DS ---
Providers Date of admission: 07/30/17 21:44 Attending physician: Ethan Will Consults: 07/30/17 21:44 Consult Physician Routine Consulting Provider: David Ramirez Consult Reason/Comments: COPD exacerbation Do you want consulting provider notified?: Yes 07/31/17 14:54 Consult Physician Routine Consulting Provider: Tristan Morataya Consult Reason/Comments: CHF Do you want consulting provider notified?: Yes Primary care physician: Antonio Bernstein [facility] Course: This is the first time in taking care of the patient Patient is a 72-year-old female with a known history of COPD, sarcoidosis, tracheobronchomalacia, Sjogren's syndrome, history of [place], hypertension, diabetes type 2 and multiple other medical problems came to ER with complaints of worsening shortness of breath and exertional dyspnea. Patient also having cough without much sputum production. Patient follows with Dr. Bernstein in the clinic. Patient recently completed steroid tapering dose about 2 days ago. Patient is on prednisone 5 mg daily as a maintenance dose. Otherwise patient denied any fever or chills. No chest pain. Patient does have chronic lower extremity edema and was recently treated for lower extremity wounds and cellulitis. BNP 480,Troponin 0.069 and 0.091, Chest x-ray showed congestive heart failure and pulmonary edema new compared to previous exam EKG showed normal sinus rhythm Patient was diagnosed with acute CHF exacerbation, diastolic. Patient has been evaluated by freight solicitor team she got extensive diuresis with Lasix, patient's complaints of dyspnea and leg swelling are improved significantly she feels she is back at her baseline and she is ready to go back home Cardiology cleared the patient for discharge on oral Lasix and follow-up as an outpatient Also has been evaluated by Dr. BERNSTEIN from pulmonology, she is a stable and can follow-up as an outpatient Patient has chronic dermatitis and redness of her lower legs for 2 years which are stable as per patient, no warmth, swelling or loss of function, and no other signs symptoms of cellulitis, patient does not need antibiotics for now as they have risks more than benefits pt has appointment with Dr. Good by the end of this week , i spoke with Dr. Good and discussed the case with him and recommended to recheck her electrolytes including K, Mg and cr as she was started on lasix Problem list and management plan were discussed with the patient and she verbalized understanding and acceptance Patient was found stable and can be DC'd home however she needs follow-up as an outpatient - Exam PHYSICAL EXAMINATION: Patient is lying in the bed comfortably, no acute distress, awake alert and oriented.. HEENT: Normocephalic. Neck is supple. Pupils reactive. Nostrils clear. Oral cavity is moist. Ears reveal no drainage. Neck reveals no JVD, carotid bruits, or thyromegaly. CHEST EXAMINATION: Trachea is central. Symmetrical expansion. Clear to auscultation except minimal basilar crackles CARDIAC: Normal S1, S2 with no gallops. No murmurs ABDOMEN: Soft. Bowel sounds normal. No organomegaly. No abdominal bruits. Extremities: 1+ edema bilateral lower extremity erythema with one blister. No clubbing or cyanosis, redness on both lower legs [chronic for 2 years as per patient] Neurologically awake, alert, oriented x3 with well-coordinated movements. No focal deficits noted Skin: No rash or skin lesions. Psychiatric: Cooperative. Nonsuicidal Musculoskeletal: No joint swelling or deformity. Normal range of motion. Patient Condition at Discharge: Good Plan - Discharge Summary Discharge Rx Participant: No New Discharge Prescriptions: New Budesonide-Formot 160-4.5 Mcg [Symbicort 160-4.5 Mcg Inhaler] 2 puff INHALATION RT-BID puff Furosemide [Lasix] 60 mg PO BID@0900,1600 #60 tab Insulin Aspart [NovoLOG (formulary)] 0 unit SQ ACHS vial predniSONE 10 mg PO BID #4 tab predniSONE 5 mg PO BID #4 tab Discontinued Furosemide [Lasix] 20 - 40 mg PO QAM Pioglitazone [Actos] 15 mg PO HS No Action Multivit with Calcium,Iron,Min [Women's Daily Multivitamin] 1 tab PO QAM Magnesium Gluconate [Magonate] 500 mg PO QAM clonazePAM [KlonoPIN] 0.5 - 1 mg PO HS PRN PRN Reason: restless leg Cholecalciferol [Vitamin D3] 2,000 unit PO QAM Aspirin 81 mg PO QAM Atorvastatin [Lipitor] 40 mg PO HS predniSONE 5 mg PO DAILY Metoprolol Succinate [Toprol XL] 25 mg PO DAILY rOPINIRole HCL [Requip] 1 mg PO HS Insulin Aspart [NovoLOG (formulary)] See Protocol SQ ACHS Alendronate Sodium [Fosamax] 70 mg PO CURRY Metolazone [Zaroxolyn] 5 mg PO DAILY Albuterol Inhaler [Ventolin Hfa Inhaler] 2 puff INHALATION RT-BID Insulin NPH Hum/Reg Insulin Hm [Novolin 70-30 100 Unit/ml Vial] 40 unit SQ AC -BID Ipratropium Nebulized [Atrovent Nebulized] 0.5 mg INHALATION RT-QID Ibuprofen [Motrin] 600 mg PO Q8HR PRN PRN Reason: Pain HYDROcodone/APAP 7.5-325MG [[place] 7.5-325] 1 tab PO Q4-6H Discharge Medication List Multivit with Calcium,Iron,Min [Women's Daily Multivitamin] 1 tab PO QAM [History] Magnesium Gluconate [Magonate] 500 mg PO QAM 04/18/15 [History] clonazePAM [KlonoPIN] 0.5 - 1 mg PO HS PRN 04/18/15 [History] Aspirin 81 mg PO QAM 06/24/15 [History] Atorvastatin [Lipitor] 40 mg PO HS 06/24/15 [History] Cholecalciferol [Vitamin D3] 2,000 unit PO QAM 06/24/15 [History] predniSONE 5 mg PO DAILY 10/18/16 [History] Metoprolol Succinate [Toprol XL] 25 mg PO DAILY 02/10/17 [History] rOPINIRole HCL [Requip] 1 mg PO HS 02/11/17 [History] Insulin Aspart [NovoLOG (formulary)] See Protocol SQ ACHS 04/02/17 [History] Alendronate Sodium [Fosamax] 70 mg PO CURRY 06/14/17 [History] Metolazone [Zaroxolyn] 5 mg PO DAILY 06/14/17 [History] Albuterol Inhaler [Ventolin Hfa Inhaler] 2 puff INHALATION RT-BID 07/30/17 [ History] Insulin NPH Hum/Reg Insulin Hm [Novolin 70-30 100 Unit/ml Vial] 40 unit SQ AC- BID 07/30/17 [History] Ipratropium Nebulized [Atrovent Nebulized] 0.5 mg INHALATION RT-QID 07/30/17 [ History] HYDROcodone/APAP 7.5-325MG [[place] 7.5-325] 1 tab PO Q4-6H 07/31/17 [History] Ibuprofen [Motrin] 600 mg PO Q8HR PRN 07/31/17 [History] Budesonide-Formot 160-4.5 Mcg [Symbicort 160-4.5 Mcg Inhaler] 2 puff INHALATION RT-BID puff 08/05/17 [Rx] Furosemide [Lasix] 60 mg PO BID@0900,1600 #60 tab 08/05/17 [Rx] Insulin Aspart [NovoLOG (formulary)] 0 unit SQ ACHS vial 08/05/17 [Rx] predniSONE 5 mg PO BID #4 tab 08/05/17 [Rx] predniSONE 10 mg PO BID #4 tab 08/05/17 [Rx] Follow up Appointment(s)/Referral(s): Harry Abel DO [STAFF PHYSICIAN] - 08/08/17 (Please keep previous appointment.) Antonio Bernstein DO [Primary Care Provider] - 08/16/17 1:00 pm (Please keep previous appointment.) Arnie Henderson MD [STAFF PHYSICIAN] - 08/14/17 3:15 pm Patient Instructions/Handouts: Heart Failure (DC), Pulmonary Edema (DC), Chronic Lung Disease and Infection Prevention (DC) Discharge Disposition: HOME SELF-CARE
[2017-08-05 16:51] LABS: Glucose,Whole Blood 184 mg/dL (75-99)
--- NOTE | 2017-08-12 13:53 | CDI ---
Last Revision, March 2017 Documentation Clarification Form Date: 08/12/17 From: Chioma Mohsen Pauline Galvez, Orthodontist between 8:30 am & 5 pm Rafat Admit Date: 07/30/2017 9:44:00 PM Patient Name: Esme Gutierrez Visit Number: [id number] Discharge Date: 08/05/17 ATTENTION: The Clinical Documentation Specialists (CDI) and [facility] Coding Staff appreciate your assistance in clarifying documentation. Please respond to the clarification below the line at the bottom and electronically sign. The CDI & [facility] Coding staff will review the response and follow-up if needed. Please note: Queries are made part of the Legal Health Record. If you have any questions, please contact the author of this message via ITS. Dr. Mendoza E Sheet Potassium was reported low at 2.9 on 08/02.Potassium replacement protocol was intiniated on 08/02. Potassium chloride ER 20 meq po Q1HR was ordered on 08/02. History/Risk Factors: HTN heart diease w heart failure, COPD Clinical indicators: K 2.9 Clinical significance of diagnostic testing and treatment CANNOT be assumed or coded without physician documentation of significance if any. Please clarify what abnormal laboratory signifies: Disease process, please specify Abnormal Lab Value Unable to determine Other, please specify Please continue to document in your progress notes and discharge summary in order to capture severity of illness and risk of mortality. Include clinical findings that support your diagnosis. abnoraml lab value MTDD
== END 2017-08-05 17:54 | disposition home or self-care (01) | DRG 291 ==
LOC: EC 17:54 → 6SEL 21:44
PROVIDERS: ADMIT Internal Medicine; ATTEND Internal Medicine
DX: I11.0 Hypertensive heart disease with heart failure (principal); G05.4 Myelitis in diseases classified elsewhere; J96.21 Acute and chronic respiratory failure with hypoxia; G61.81 Chronic inflammatory demyelinating polyneuritis; D69.6 Thrombocytopenia, unspecified; I08.3 Combined rheumatic disorders of mitral, aortic and tricuspid valves; J44.1 Chronic obstructive pulmonary disease with (acute) exacerbation; J45.901 Unspecified asthma with (acute) exacerbation; Z68.41 Body mass index [BMI] 40.0-44.9, adult; E66.9 Obesity, unspecified; I27.20 Pulmonary hypertension, unspecified; M35.00 Sjogren syndrome, unspecified; J98.09 Other diseases of bronchus, not elsewhere classified; F03.90 Unspecified dementia, unspecified severity, without behavioral disturbance, psychotic disturbance, mood disturbance, and anxiety; K75.81 Nonalcoholic steatohepatitis (NASH); I50.33 Acute on chronic diastolic (congestive) heart failure; E11.9 Type 2 diabetes mellitus without complications; G89.4 Chronic pain syndrome; D86.9 Sarcoidosis, unspecified; E78.5 Hyperlipidemia, unspecified; M19.91 Primary osteoarthritis, unspecified site; G25.81 Restless legs syndrome; M81.0 Age-related osteoporosis without current pathological fracture; M54.30 Sciatica, unspecified side; E03.9 Hypothyroidism, unspecified; F41.9 Anxiety disorder, unspecified; F32.9 Major depressive disorder, single episode, unspecified; K76.9 Liver disease, unspecified; I25.10 Atherosclerotic heart disease of native coronary artery without angina pectoris; K21.9 Gastro-esophageal reflux disease without esophagitis; K57.90 Diverticulosis of intestine, part unspecified, without perforation or abscess without bleeding; I25.2 Old myocardial infarction; L30.9 Dermatitis, unspecified; M54.9 Dorsalgia, unspecified; I87.8 Other specified disorders of veins; F40.240 Claustrophobia; R77.8 Other specified abnormalities of plasma proteins; H91.90 Unspecified hearing loss, unspecified ear; R79.89 Other specified abnormal findings of blood chemistry; Z79.82 Long term (current) use of aspirin; Z79.83 Long term (current) use of bisphosphonates; Z79.4 Long term (current) use of insulin; Z79.891 Long term (current) use of opiate analgesic; Z79.52 Long term (current) use of systemic steroids; Z79.899 Other long term (current) drug therapy; Z86.73 Personal history of transient ischemic attack (TIA), and cerebral infarction without residual deficits; Z87.442 Personal history of urinary calculi; Z87.01 Personal history of pneumonia (recurrent); Z85.828 Personal history of other malignant neoplasm of skin; Z90.49 Acquired absence of other specified parts of digestive tract; Z98.51 Tubal ligation status; Z96.89 Presence of other specified functional implants; Z98.49 Cataract extraction status, unspecified eye; Z88.1 Allergy status to other antibiotic agents; Z88.2 Allergy status to sulfonamides; Z88.8 Allergy status to other drugs, medicaments and biological substances; Z80.9 Family history of malignant neoplasm, unspecified
CPT/HCPCS: 36415; 71045; 71046; 80048; 80053; 80061; 82550; 82553; 83735; 83880; 84484; 85025; 85610; 85730; 87040; 93005; 93306; 94640; 94760; 96361; 96374; 96375; 99291

== ENCOUNTER → 2017-08-21 | Day surgery (SDC) | payer MEDICARE, OTHER ==
[2017-08-16 17:23] VITALS: BMI 42.2
[~2017-08-21] MED LIST: MIDAZOLAM 2 MG/2 ML VIAL IVP ONE; MIDAZOLAM 2 MG/2 ML VIAL ONE; SODIUM CHLORIDE 0.9% (PF) 10 ML VIAL IV ONE; SODIUM CHLORIDE 0.9% 1,000 ML IV SCH; SODIUM CHLORIDE 0.9% 250 ML IV ONE; fentaNYL (PF) 50 MCG/ML 2 ML AMP ONE
[2017-08-21 07:58] VITALS: RESP 18
[2017-08-21 08:39] LABS: Glucose,Whole Blood 105 mg/dL (75-99)
[2017-08-21] MEDS: BENZOCAINE SPRAY 1 CAN MUCOUS MEM ONE ×2 (09:00→09:04)
[2017-08-21 09:54] VITALS: TEMP 98.4
--- NOTE | 2017-08-21 09:54 | ECHOT ---
TRANSESOPHAGEAL ECHOCARDIOGRAM INDICATION: Diastolic heart failure in a patient with mitral aortic stenosis. PROCEDURE NOTE: After obtaining informed consent, transesophageal echocardiogram was performed in left lateral position using an Omni plane probe. Local and IV sedation were obtained using Xylocaine spray and intravenous Versed. She tolerated the procedure well without any obvious immediate complications. Patient received moderate conscious sedation and total sedation time was 15 minutes. FINDINGS: 1. AORTIC VALVE: Aortic valve is a 3-leaflet valve, appears calcified with moderate restriction in leaflet mobility. The valve area by planimetry is 1.5 cm2. There is some mild aortic regurgitation noted. 2. Mitral valve is anatomically normal. There is mild to moderate mitral regurgitation noted. 3. Tricuspid valve shows mild tricuspid regurgitation. 4. Left ventricle has normal size and systolic function. 5. Left atrium appears mildly enlarged. Right atrium, right ventricle exam within normal limits. 6. INTERATRIAL SEPTUM: There is no evidence of fkam-ma-gzcyv shunt by color-flow Doppler or szhms-ie-[id number] shunt by agitated saline contrast study. Aortic root appears within normal limits. CONCLUSION: 1. Moderate aortic stenosis with mild aortic regurgitation. 2. Mild to moderate mitral regurgitation. 3. Normal left ventricular systolic function. PLAN: Patient's aortic valve disease is not significant enough to require aortic valve replacement at this time. Her diastolic heart failure is probably multifactorial in origin and we will continue to treat her with optimal medical therapy. . MMODL / IJN: [id number] /
[2017-08-21 11:49] VITALS: PULSE 84
[2017-08-21 11:50] VITALS: BP 124/58
== END ==
LOC: CATHCVL 07:33
PROVIDERS: ATTEND Internal Medicine Cardiovascular Disease
DX: I08.0 Rheumatic disorders of both mitral and aortic valves (principal); I11.0 Hypertensive heart disease with heart failure; I50.32 Chronic diastolic (congestive) heart failure; E11.9 Type 2 diabetes mellitus without complications; E78.00 Pure hypercholesterolemia, unspecified; Z79.82 Long term (current) use of aspirin; Z79.4 Long term (current) use of insulin; Z79.52 Long term (current) use of systemic steroids; Z79.899 Other long term (current) drug therapy; Z88.1 Allergy status to other antibiotic agents; Z88.0 Allergy status to penicillin; Z88.2 Allergy status to sulfonamides
CPT/HCPCS: 93312; 93320; 93325; J2250

== ENCOUNTER → 2017-09-04 | Outpatient (CLI) | payer MEDICARE, OTHER ==
[2017-09-04 15:14] VITALS: BP 162/75; PULSE 83; RESP 20
--- NOTE | 2017-09-04 15:19 | P.PN ---
Progress Note - Text Progress Note Date: 09/04/17 Patient returns for followup for chronic back pain with radiation to both legs. Patient was told by Dr. Ontiveros that an intrathecal pump trial would be better than SCS revision. Patient continues on Allen from PCP with some relief. She has been diagnosed with congestive heart failure and also has several other medical comorbidities. Patient denies adverse drug effects from medications. Today, pt denies new-onset weakness, bowel/bladder incontinence, or any other signs or symptoms of cauda equina syndrome. There are no signs of acute intoxication, and no indications of medication diversion or overuse. In addition to above, 13-point review of systems is also negative for chest pain , shortness of breath, changes in vision, changes in hearing, new onset weakness , abdominal pain, diarrhea, extreme fatigue, malaise, fever, skin changes, homicidal or suicidal ideation, or bowel or bladder incontinence. Vital Signs: Reviewed in EMR Gen: WDWN, AAOx3, NAD HEENT: NCAT, EOMI, hearing grossly normal Pulm: resp unlabored Abd: soft, NT, ND Neck: supple, trachea midline ROM in flexion lumbar spine: reduced ROM in extension lumbar spine: reduced Straight leg raise: +RLE Imaging: Reviewed in EMR Assessment: 1. lumbar PLPS (patient states 13 back surgeries, including SCS placement) 2. chronic pain syndrome 3. Plan: 1. Explanation: Opioid and psychological risk scores were reviewed. Diagnoses , prognoses, and multiple treatment options including but not limited to physical therapy, interventional therapies, adjuvant medical therapies, narcotic medication therapies, and surgery were discussed with the patient and all questions were answered to the patient's satisfaction. 2. Opioid agreement: no opioids prescribed today 3. Counseling: The patient was counseled extensively on BODY MASS INDEX, EXERCISE. Specifically, the patient was instructed regarding the importance of weight control, and exercise in the context of both chronic pain and overall health. 4. Procedures: none 5. Consultations: None 6. Investigations: UDS not done today, MAPS queried and appropriate 7. Medications: none prescribed 8. Morphine equivalents per day prescribed: zero 9. Disposition: f/u as needed. Patient already has SCS in place that is currently not working and needs revision. Given non-malignant pain, I believe that this patient is unlikely to benefit substantially from intrathecal drug delivery. She had excellent relief for two years from SCS and it is my opinion that this modality will help her most. Patient will return to Dr. Ontiveros for further evaluation.
== END | disposition home or self-care (01) ==
LOC: PNWHC3 14:31
PROVIDERS: ATTEND Anesthesiology
DX: G89.4 Chronic pain syndrome (principal); M54.9 Dorsalgia, unspecified; G97.1 Other reaction to spinal and lumbar puncture; I50.9 Heart failure, unspecified; Z79.891 Long term (current) use of opiate analgesic
CPT/HCPCS: 99211

== ENCOUNTER → 2017-09-18 | Outpatient (CLI) | payer MEDICARE, OTHER ==
[2017-09-18 17:11] LABS: ALT 74 U/L (9-52); AST 86 U/L (14-36); Albumin 3.3 g/dL (3.5-5.0); Alkaline Phosphatase 122 U/L (38-126); Anion Gap 11 mmol/L; Blood Urea Nitrogen 20 mg/dL (7-17); Calcium 8.8 mg/dL (8.4-10.2); Carbon Dioxide 28 mmol/L (22-30); Chloride 102 mmol/L (98-107); Glucose 210 mg/dL (74-99); Potassium 4.4 mmol/L (3.5-5.1); Sodium 141 mmol/L (137-145); Total Bilirubin 2.7 mg/dL (0.2-1.3); Total Protein 6.1 g/dL (6.3-8.2)
== END | disposition home or self-care (01) ==
LOC: LABWHC1 16:23
PROVIDERS: ATTEND Internal Medicine Critical Care Medicine
DX: J45.909 Unspecified asthma, uncomplicated (principal); J47.9 Bronchiectasis, uncomplicated; E11.9 Type 2 diabetes mellitus without complications; J98.09 Other diseases of bronchus, not elsewhere classified; I50.9 Heart failure, unspecified; M35.00 Sjogren syndrome, unspecified; M54.9 Dorsalgia, unspecified; G89.29 Other chronic pain
CPT/HCPCS: 36415; 80053; 82164; 85652

== ENCOUNTER → 2017-09-24 | Outpatient (CLI) | payer MEDICARE, OTHER ==
[2017-09-24 16:53] LABS: Blood Urea Nitrogen 36 mg/dL (7-17)
--- NOTE | 2017-09-25 07:57 | CT ---
EXAMINATION TYPE: CT lumbar spine w con DATE OF EXAM: 09/24/2017 COMPARISON: 10/02/2016 HISTORY: Lower back pain, hx of sarcoidosis CT DLP: 1247 mGycm CONTRAST: CT scan of the lumbar is performed with IV Contrast, patient injected with 100 mL of Isovue 300. TECHNIQUE: CT of the lumbar spine is performed on a spiral scan at 3 mm thick sections. Reconstructed images are performed in the coronal and sagittal planes. FINDINGS: T11-T12: Disc space narrowing is present. No focal disc herniation is evident. Bilateral foraminal na rrowing is present. Facet changes are present. T12-L1: No focal disc herniation is evident. Facet changes are present. There is foraminal narrowing. L1-L2: There is loss of disc height. Endplate spurring is present. No significant spinal canal stenos is is present. Neural foramen are patent. Endplate degenerative changes are present. Vacuum Disc phe nomenon is present. The left pedicle screw extends through the pedicle lateral to the vertebral body at this level. L2-L3: Beam hardening artifact is present at this level. There is loss of disc height. Posterior endp late spurring at L2 is present. No spinal canal stenosis present. Some thecal sac compression from th e facet hypertrophy is present. L3-L4: Disc spacers present with screws through the vertebral bodies of L3 and L4. Pedicle screws are present. Beam hardening artifact limits evaluation. No obvious stenosis or foraminal stenosis is naeem dent. L4-L5: There is a laminectomy through this level. Beam hardening artifact from pedicle screws and fix ation rods are present. No obvious stenosis is evident. Foramen appear widely patent. L5-S1: There is a laminectomy. No spinal canal stenosis or foraminal stenosis is evident. Some beam h ardening artifact is present to this level. There is a scoliosis present. Diffuse loss of disc height throughout the lumbar spine. Sacroiliac kaleb nt degenerative changes vacuum phenomenon is present. IMPRESSION: 1. Extensive degenerative changes throughout the lumbar spine including advanced degenerative disc ch anges with some endplate changes, scoliosis, and postsurgical changes with fixation rods and pedicle screws. 2. Exam is compared with 2017. No significant interval changes evident.
== END | disposition home or self-care (01) ==
LOC: RADCTMAIN 16:04
PROVIDERS: ATTEND Internal Medicine Critical Care Medicine
DX: M47.816 Spondylosis without myelopathy or radiculopathy, lumbar region (principal); M41.86 Other forms of scoliosis, lumbar region; Z98.890 Other specified postprocedural states
CPT/HCPCS: 82565; 84520; 72132; 36415; Q9967

== ENCOUNTER → 2017-10-02 | Outpatient (CLI) | payer MEDICARE, OTHER ==
--- NOTE | 2017-10-02 10:06 | US ---
EXAMINATION TYPE: US liver DATE OF EXAM: 10/02/2017 COMPARISON: CT, US, NUC MED CLINICAL HISTORY: K74.60 Unspecified Cirrhosis Of Liver. EXAM MEASUREMENTS: Liver Length: 13.13 cm Surgically absent CBD: 1.0 cm Right Kidney: 9.0 x 5.3 x 4.9 cm Patient of large body habitus, excessive bowel gas, technically limited study. Pancreas: prominent duct, limited visualization due to overlying bowel Liver: scattered echogenic foci, increased attenuation, attempt made to take flow in hepatic artery and portal v, unable to visualized hepatic artery Gallbladder: Patient states cholecystectomy, gallbladder does appear present in ultrasound 10-18-16. I t is not seen on nuc med study. At today's study patient has excessive midline bowel gas, unable to v isualize gallbladder. Evidence for sonographic Moody's sign: no CBD: wnl Right Kidney: inferior pole obscured by overlying bowel gas IMPRESSION: Cirrhotic morphology of the liver without focal hepatic lesion on today's exam. Portal ve in appears patent. Cholecystectomy with prominent postsurgical dilatation of the common bile duct.
== END | disposition home or self-care (01) ==
LOC: RADUSMAIN 08:01
PROVIDERS: ATTEND Internal Medicine Gastroenterology
DX: K74.60 Unspecified cirrhosis of liver (principal); K76.9 Liver disease, unspecified; Z90.49 Acquired absence of other specified parts of digestive tract
CPT/HCPCS: 76705

== ENCOUNTER → 2017-10-03 | Outpatient (CLI) | payer MEDICARE, OTHER ==
--- NOTE | 2017-10-03 13:53 | XR ---
EXAMINATION TYPE: XR thoracic spine complete DATE OF EXAM: 10/03/2017 CLINICAL HISTORY: Fall with mid back pain. TECHNIQUE: Frontal, lateral, and swimmer's view of thoracic spine are obtained. COMPARISON: Lumbar spine CT dated 09/24/2017. FINDINGS: Newly placed spinal nerve stimulator is centered at the T7 vertebral level seen posteriorly presumably within the epidural space. Multilevel moderate degenerative changes of the thoracic spine are seen as intervertebral disc space narrowing, endplate sclerosis and facet arthropathy in additio n to multilevel anterior osteophytes. There is partial visualization of both anterior cervical fusion and postsurgical changes of the lumbar spine. Moderate calcific atheromatous changes is seen of the abdominal aorta. No vertebral body height loss of the thoracic spine. Mild dextroscoliosis of the tho racolumbar junction. IMPRESSION: 1. Newly placed thoracic nerve stimulator centered at the T7 vertebral level posteriorly within the s jeanette canal. 2. No acute fracture or malalignment is seen in the thoracic spine. 3. Multilevel moderate degenerative changes of the cervical spine and partial visualization of postsu rgical changes of both the cervical and lumbar spine.
== END | disposition home or self-care (01) ==
LOC: RADXRMAIN 12:57
PROVIDERS: ATTEND Anesthesiology
DX: M54.6 Pain in thoracic spine (principal); Z98.890 Other specified postprocedural states
CPT/HCPCS: 72072

== ENCOUNTER 2017-10-05 09:26 | Inpatient (IN) | payer MEDICARE, OTHER ==
[2017-10-05] MEDS ORDERED: SODIUM CHLORIDE 0.9% 1,000 ML IV STA ×2 (09:50)
[2017-10-05] MEDS ORDERED: ACETAMINOPHEN TAB 500 MG TAB PO STA (09:51)
--- NOTE | 2017-10-05 09:54 | ED ---
General Adult HPI - General Source: EMS, RN notes reviewed Mode of arrival: EMS Limitations: no limitations <Ciaran Cha - Last Filed: 10/05/17 12:20> <Antonio Gómez - Last Filed: 10/05/17 14:35> - General Chief complaint: Fever Stated complaint: nausea Time Seen by Provider: 10/05/17 09:44 - History of Present Illness Initial comments: Patient 72-year-old female presenting to the emergency room today by EMS, with chief complaint of chills and feeling nauseous. Patient states the symptoms started earlier this morning proxy 4 AM. Patient denies any pain. States felt nauseated and having chills. Patient unaware of fever 103.6 at triage. Patient does admit to a chronic cellulitis to bilateral lower extremity's. She is slightly worse than it usually is. Patient does admit to a history of sarcoidosis. Does not that she's had a mild cough. She denies any other complaints. Patient denies any recent fever, chills, shortness of breath, chest pain, back pain, abdominal pain, dysuria or hematuria, constipation or diarrhea , headaches or visual changes, or any other complaints. (Ciaran Cha) - Related Data Home Medications Medication Instructions Recorded Confirmed Multivit with Calcium,Iron,Min 1 tab PO QAM 08/21/13 10/05/17 [Women's Daily Multivitamin] Magnesium Gluconate [Magonate] 500 mg PO QAM 04/18/15 10/05/17 clonazePAM [KlonoPIN] 0.5 - 1 mg PO HS PRN 04/18/15 10/05/17 Aspirin 81 mg PO QAM 06/24/15 10/05/17 Atorvastatin [Lipitor] 40 mg PO HS 06/24/15 10/05/17 Cholecalciferol [Vitamin D3] 2,000 unit PO QAM 06/24/15 10/05/17 predniSONE 5 mg PO DAILY 10/18/16 10/05/17 Metoprolol Succinate [Toprol XL] 25 mg PO DAILY 02/10/17 10/05/17 rOPINIRole HCL [Requip] 1 mg PO HS 02/11/17 10/05/17 Insulin Aspart [NovoLOG See Protocol SQ ACHS 04/02/17 10/05/17 (formulary)] Alendronate Sodium [Fosamax] 70 mg PO CURRY 06/14/17 10/05/17 Metolazone [Zaroxolyn] 5 mg PO DAILY@0800 06/14/17 10/05/17 Insulin NPH Hum/Reg Insulin Hm 40 unit SQ AC-BID 07/30/17 10/05/17 [Novolin 70-30 100 Unit/ml Vial] Ipratropium Nebulized [Atrovent 0.5 mg INHALATION RT-QID 07/30/17 10/05/17 Nebulized] Albuterol Sulfate [Proventil Hfa] 1 - 2 puff INHALATION Q6HR PRN 08/16/17 Furosemide [Lasix] 2 tab PO BID@0900,1600 09/04/17 10/05/17 Previous Rx's Medication Instructions Recorded Budesonide-Formot 160-4.5 Mcg 2 puff INHALATION RT-BID puff 08/05/17 [Symbicort 160-4.5 Mcg Inhaler] Allergies Allergy/AdvReac Type Severity Reaction Status Date / Time erythromycin base Allergy Unknown Rash/Hives Verified 10/05/17 12:44 [Erythromycin Base] metoclopramide HCl Allergy Unknown Rash/Hives Verified 10/05/17 12:44 [From Reglan] Sulfa (Sulfonamide Allergy Unknown Rash/Hives Verified 10/05/17 12:44 Antibiotics) Review of Systems ROS Other: All systems not noted in ROS Statement are negative. <Ciaran Cha - Last Filed: 10/05/17 12:20> ROS Other: All systems not noted in ROS Statement are negative. <Antonio Gómez - Last Filed: 10/05/17 14:35> ROS Statement: Those systems with pertinent positive or pertinent negative responses have been documented in the HPI. 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 CELLULITIS LLE. aortic valve pb. Last Myocardial Infarction Date:: unknown History of Any Multi-Drug Resistant Organisms: None Reported Past Surgical History: Back Surgery, Cholecystectomy, Heart Catheterization, Tubal Ligation Additional Past Surgical History / Comment(s): several bronchoscopies, cystoscopy , laminectomy total of 13 back sx including implanted pain stimulator, liver biopsy, cataract surgery , liver bx 2008 had ercp /stent in liver, skin ca removed. jonah carpal tunnel done ,heel spurs rt heel . thyroid bx (nodule) RING FINGER RIGHT HAND RIGHT Past Anesthesia/Blood Transfusion Reactions: Motion Sickness Additional Past Anesthesia/Blood Transfusion Reaction / Comment(s): claustrophobia. NEVER HAD ANY BLOOD TRANSFUSIONS. ADOPTED, NO KNOWN FAM HX. Past Psychological History: Anxiety, Depression Smoking Status: Never smoker Past Alcohol Use History: None Reported Past Drug Use History: None Reported - Past Family History Father History Unknown: Yes Additional Family Medical History / Comment(s): was adopted Mother History Unknown: Yes Family Medical History: Cancer Additional Family Medical History / Comment(s): GRANDFATHER HAD COLON CA <Ciaran Cha - Last Filed: 10/05/17 12:20> General Exam Limitations: no limitations <Ciaran Cha - Last Filed: 10/05/17 12:20> <Antonio Gómez - Last Filed: 10/05/17 14:35> - General Exam Comments Initial Comments: General: The patient is awake and alert, in no distress, and does not appear acutely ill. Eye: Pupils are equal, round and reactive to light, extra-ocular movements are intact. No nystagmus. There is normal conjunctiva bilaterally. No signs of icterus. Ears, nose, mouth and throat: There are moist mucous membranes and no oral lesions. Neck: The neck is supple, there is no tenderness or JVD. Cardiovascular: There is a regular rate and rhythm. No murmur, rub or gallop is appreciated. Respiratory: Lungs are clear to auscultation, respirations are non-labored, breath sounds are equal. No wheezes, stridor, rales, or rhonchi. Gastrointestinal: Soft, non-distended, non-tender abdomen without masses or organomegaly noted. There is no rebound or guarding present. No CVA tenderness. Musculoskeletal: Normal ROM, no tenderness. Strength 5/5. Sensation intact. Pulses equal bilaterally 2+. Neurological: A&O x 3. CN II-XII intact, There are no obvious motor or sensory deficits. Coordination appears grossly intact. Speech is normal. Skin: Skin is warm and dry and no lesions are noted. Chronic cellulitis to the lower extremities bilaterally. Areas do shaina. Psychiatric: Cooperative, appropriate mood & affect, normal judgment. (Ciaran Cha) Vital Signs 10/05/17 10/05/17 10/05/17 09:29 11:03 11:23 Temperature 103.6 F H 101.7 F H 101.8 F H Pulse Rate 119 H 104 H 111 H Respiratory 20 20 24 Rate Blood Pressure 120/57 109/51 123/55 O2 Sat by Pulse 92 L 97 98 Oximetry 10/05/17 10/05/17 10/05/17 13:40 13:48 13:52 Temperature 99.5 F 99.5 F Pulse Rate 100 94 Respiratory 16 16 Rate Blood Pressure 85/43 96/44 103/50 O2 Sat by Pulse 98 97 Oximetry Medical Decision Making - Lab Data Result diagrams: 10/05/17 09:37 10/05/17 09:37 <Ciaran Cha - Last Filed: 10/05/17 12:20> - Lab Data Result diagrams: 10/05/17 09:37 10/05/17 09:37 <Antonio Gómez - Last Filed: 10/05/17 14:35> - Medical Decision Making Patient reexamined at this time shows no signs of distress. She is resting comfortably. Patient's vitals have improved. Did have 103.6 temperature at triage. Patient tachycardic. Was given a liter fluid bolus. Lactic acid 3.2 blood pressure is stable at this time. Patient's chest x-ray does show evidence for pneumonia. Urinalysis reviewed and evidence for urinary tract infection. Patient has been started on antibiotics cefepime, Lasix, Levaquin. Patient was admitted for COPD exacerbation approximately 2 months ago. Patient will be going to the hospital with consult to pulmonology and infectious disease. She states understanding and is in agreement. (Ciaran Cha) Patient reevaluated, she is febrile, tachycardic, symptoms are suggestive for both possible pneumonia as well as urinary tract infection. Workup reveals UTI which may be the source of her sepsis although her chest x-ray does show concern for bronchopneumonia, this would be healthcare associated pneumonia, she is placed on antibiotics that will cover both UTI, and healthcare associated pneumonia. Patient will be admitted with pulmonology and infectious disease on consult. (Antonio Gómez) - Lab Data Lab Results 10/05/17 10/05/17 10/05/17 Range/Units 09:37 09:37 09:37 WBC 8.5 (3.8-10.6) k/uL RBC 4.27 (3.80-5.40) m/uL Hgb 13.1 (11.4-16.0) gm/dL Hct 40.0 (34.0-46.0) % MCV 93.8 (80.0-100.0) fL MCH 30.6 (25.0-35.0) pg MCHC 32.6 (31.0-37.0) g/dL RDW 15.3 (11.5-15.5) % Plt Count 126 L (150-450) k/uL Neutrophils % 88 % Lymphocytes % 6 % Monocytes % 3 % Eosinophils % 3 % Basophils % 0 % Neutrophils # 7.5 (1.3-7.7) k/uL Lymphocytes # 0.5 L (1.0-4.8) k/uL Monocytes # 0.2 (0-1.0) k/uL Eosinophils # 0.3 (0-0.7) k/uL Basophils # 0.0 (0-0.2) k/uL Sodium 142 (137-145) mmol/L Potassium 3.7 (3.5-5.1) mmol/L Chloride 107 (98-107) mmol/L Carbon Dioxide 24 (22-30) mmol/L Anion Gap 11 mmol/L BUN 21 H (7-17) mg/dL Creatinine 0.60 (0.52-1.04) mg/dL Est GFR (CKD-EPI)AfAm >90 (>60 ml/min/1.73 sqM) Est GFR (CKD-EPI)NonAf >90 (>60 ml/min/1.73 sqM) Glucose 85 (74-99) mg/dL Lactic Ac Sepsis Rflx Plasma Lactic Acid Eddie 3.2 H* (0.7-2.0) mmol/L Calcium 8.8 (8.4-10.2) mg/dL Total Bilirubin 1.7 H (0.2-1.3) mg/dL AST 71 H (14-36) U/L ALT 71 H (9-52) U/L Alkaline Phosphatase 104 (38-126) U/L Total Protein 5.9 L (6.3-8.2) g/dL Albumin 3.2 L (3.5-5.0) g/dL Urine Color Urine Appearance (Clear) Urine pH (5.0-8.0) Ur Specific [place] (1.001-1.035) Urine Protein (Negative) Urine Glucose (UA) (Negative) Urine Ketones (Negative) Urine Blood (Negative) Urine Nitrite (Negative) Urine Bilirubin (Negative) Urine Urobilinogen (<2.0) mg/dL Ur Leukocyte Esterase (Negative) Urine RBC (0-5) /hpf Urine WBC (0-5) /hpf Urine WBC Clumps (None) /hpf Ur Squamous Epith Cells (0-4) /hpf Urine Bacteria (None) /hpf Urine Mucus (None) /hpf 10/05/17 10/05/17 Range/Units 10:16 11:15 WBC (3.8-10.6) k/uL RBC (3.80-5.40) m/uL Hgb (11.4-16.0) gm/dL Hct (34.0-46.0) % MCV (80.0-100.0) fL MCH (25.0-35.0) pg MCHC (31.0-37.0) g/dL RDW (11.5-15.5) % Plt Count (150-450) k/uL Neutrophils % % Lymphocytes % % Monocytes % % Eosinophils % % Basophils % % Neutrophils # (1.3-7.7) k/uL Lymphocytes # (1.0-4.8) k/uL Monocytes # (0-1.0) k/uL Eosinophils # (0-0.7) k/uL Basophils # (0-0.2) k/uL Sodium (137-145) mmol/L Potassium (3.5-5.1) mmol/L Chloride (98-107) mmol/L Carbon Dioxide (22-30) mmol/L Anion Gap mmol/L BUN (7-17) mg/dL Creatinine (0.52-1.04) mg/dL Est GFR (CKD-EPI)AfAm (>60 ml/min/1.73 sqM) Est GFR (CKD-EPI)NonAf (>60 ml/min/1.73 sqM) Glucose (74-99) mg/dL Lactic Ac Sepsis Rflx Y Plasma Lactic Acid Eddie (0.7-2.0) mmol/L Calcium (8.4-10.2) mg/dL Total Bilirubin (0.2-1.3) mg/dL AST (14-36) U/L ALT (9-52) U/L Alkaline Phosphatase (38-126) U/L Total Protein (6.3-8.2) g/dL Albumin (3.5-5.0) g/dL Urine Color Yellow Urine Appearance Cloudy H (Clear) Urine pH 5.5 (5.0-8.0) Ur Specific [place] 1.016 (1.001-1.035) Urine Protein 1+ H (Negative) Urine Glucose (UA) Negative (Negative) Urine Ketones Trace H (Negative) Urine Blood Moderate H (Negative) Urine Nitrite Positive H (Negative) Urine Bilirubin Negative (Negative) Urine Urobilinogen <2.0 (<2.0) mg/dL Ur Leukocyte Esterase Large H (Negative) Urine RBC 17 H (0-5) /hpf Urine WBC 143 H (0-5) /hpf Urine WBC Clumps Rare H (None) /hpf Ur Squamous Epith Cells 1 (0-4) /hpf Urine Bacteria Occasional H (None) /hpf Urine Mucus Rare H (None) /hpf Disposition Is patient prescribed a controlled substance at d/c from ED?: No Time of Disposition: 12:15 <Ciaran Cha - Last Filed: 10/05/17 12:20> <Antonio Gómez - Last Filed: 10/05/17 14:35> Clinical Impression: Nosocomial pneumonia, UTI (urinary tract infection) Disposition: ADMITTED IP TO THIS HOSP Condition: Stable
[2017-10-05 10:05] LABS: Basophils % (A) 0 %; Eosinophils # (A) 0.3 k/uL (0-0.7); Eosinophils % (A) 3 %; HGB 13.1 gm/dL (11.4-16.0); Lymphocytes # (A) 0.5 k/uL (1.0-4.8); Lymphocytes % (A) 6 %; MCH 30.6 pg (25.0-35.0); MCHC 32.6 g/dL (31.0-37.0); MCV 93.8 fL (80.0-100.0); Mean Platelet Volume 6.9; Monocytes # (A) 0.2 k/uL (0-1.0); Monocytes % (A) 3 %; Neutrophils # (A) 7.5 k/uL (1.3-7.7); Neutrophils % (A) 88 %; Platelet Count 126 k/uL (150-450); RBC 4.27 m/uL (3.80-5.40); RDW 15.3 % (11.5-15.5); WBC 8.5 k/uL (3.8-10.6)
[2017-10-05 10:14] LABS: ALT 71 U/L (9-52); AST 71 U/L (14-36); Albumin 3.2 g/dL (3.5-5.0); Alkaline Phosphatase 104 U/L (38-126); Anion Gap 11 mmol/L; Blood Urea Nitrogen 21 mg/dL (7-17); Calcium 8.8 mg/dL (8.4-10.2); Carbon Dioxide 24 mmol/L (22-30); Chloride 107 mmol/L (98-107); Glucose 85 mg/dL (74-99); Potassium 3.7 mmol/L (3.5-5.1); Sodium 142 mmol/L (137-145); Total Bilirubin 1.7 mg/dL (0.2-1.3); Total Protein 5.9 g/dL (6.3-8.2)
--- NOTE | 2017-10-05 10:38 | XR ---
EXAMINATION: XR chest 2V DATE AND TIME: 10/05/2017 10:24 AM ORDERING PROVIDER: Ciaran Cha CLINICAL INDICATION: fever, dyspnea, history of sarcoidosis TECHNIQUE: PA and lateral COMPARISON: 07/31/2017 DESCRIPTION: The overlying soft tissues are prominent, stable in appearance. The pulmonary vasculature is silhouetted bilaterally, particularly within the mid and lower lung zone s, by a bilateral ill-defined fine reticular pattern of increased density with zones of coalescence. Overall, radiographic appearance is that of advanced interstitial phase pulmonary edema, but the dif ferential includes pneumonitis, developing multifocal bronchopneumonia. The pleural spaces are negative. The cardiac silhouette is mildly enlarged. The skeletal structures are intact without acute findings. IMPRESSION: PROMINENT PULMONARY FINDINGS, DISCUSSED.
[2017-10-05] MEDS ORDERED: VANCOMYCIN IV PER PHARMACY 1 EACH MISC MISCELLANE PRN (11:20)
[2017-10-05] MEDS ORDERED: LEVOFLOXACIN 500MG-D5W PMX 500 MG in DEXTROSE/WATER 1 100ML.BAG IVPB STA ×2 (11:20→12:24)
[2017-10-05] MEDS ORDERED: CEFEPIME 2 GM in SODIUM CHLORIDE 0.9% 50 ML IVPB STA (11:22)
[2017-10-05] MEDS ORDERED: VANCOMYCIN 1,750 MG in SODIUM CHLORIDE 0.9% 250 ML IVPB ONE (12:00)
[2017-10-05 12:09] LABS: Appearance,Urine Cloudy (Clear); Bacteria,Urine Occasional /hpf; Bilirubin,Urine Negative (Negative); Blood,Urine Moderate (Negative); Color,Urine Yellow; Glucose,Urine (UA) Negative (Negative); Ketones,Urine Trace (Negative); Leukocyte Esterase,Urine Large (Negative); Mucus,Urine Rare /hpf; Nitrite,Urine Positive (Negative); PH, Urine 5.5 (5.0-8.0); Protein,Urine 1+ (Negative); RBC,Urine 17 /hpf (0-5); Specific Gravity,Urine 1.016 (1.001-1.035); Squamous Epithelial Cell,Urine 1 /hpf (0-4); Urobilinogen,Urine <2.0 mg/dL (<2.0); WBC,Urine 143 /hpf (0-5)
[2017-10-05] MEDS ORDERED: PNEUMONIA PROTOCOL UTILIZED 1 EACH MISC PO PRN (12:22)
[2017-10-05 15:05] VITALS: BMI 33.8
[2017-10-05] MEDS ORDERED: VANCOMYCIN 1,500 MG in SODIUM CHLORIDE 0.9% 250 ML IVPB ONE (16:30)
[2017-10-05 17:09] LABS: Glucose,Whole Blood 120 mg/dL (75-99)
[2017-10-05] MEDS: FUROSEMIDE 40 MG TAB PO SCH (17:20)
[2017-10-05] MEDS: INSULIN ASPART 100 UNIT/ML 1 ML 10 ML VIAL SQ SCH ×2 (17:21→20:30)
[2017-10-05] MEDS: INSULIN NPH/REG INSULIN 70/30 300 UNIT/3 ML VIAL SQ SCH (17:21)
[2017-10-05] MEDS ORDERED: INSULIN NPH/REG INSULIN 70/30 300 UNIT/3 ML VIAL SQ SCH (17:30)
[2017-10-05] MEDS: IPRATROPIUM 0.5 MG/2.5 ML NEBU INHALATION SCH ×2 (19:06→19:16)
[2017-10-05] MEDS: SYMBICORT 160-4.5 MCG INHALER INHALATION SCH (19:06)
[2017-10-05 20:06] LABS: Glucose,Whole Blood 219 mg/dL (75-99)
[2017-10-05] MEDS: CEFEPIME 1 GM in SODIUM CHLORIDE 0.9% 50 ML IVPB SCH (20:29)
[2017-10-05] MEDS: ATORVASTATIN 40 MG TAB PO SCH (20:30)
--- NOTE | 2017-10-05 20:56 | HP ---
HISTORY AND PHYSICAL DATE OF ADMISSION: October 05, 2017. DATE OF SERVICE: October 05, 2017. PRESENTING COMPLAINT: Fever, chills. HISTORY OF PRESENTING COMPLAINT: This is a pleasant 72-year-old patient of Dr. Abel. Chronic stable medical conditions include asthma, coronary artery disease, COPD, stroke, diabetes, GERD, hyperlipidemia, hypertension, hypothyroid, sarcoidosis, tracheobronchomalacia, Sjogren syndrome, chronic inflammatory demyelinating polyneuropathy, transverse colitis, nephrolithiasis, osteoporosis, sciatica, restless legs syndrome, anemia, diabetes, hypertension, hyperlipidemia, hypothyroid, restless legs syndrome, CHF with diastolic dysfunction, moderate aortic stenosis, and chronic lower extremity cellulitis. The patient got up this morning at 9 o'clock and started having chills, feeling hot, shaking, did have urinary frequency. The patient has started not feeling good the previous evening and did not feel like eating, and decided to come in. There is chronic severe lower extremity cellulitis, which she thinks is much better than baseline. The patient is started on antibiotics in the ER. The patient does feel tired and run down. REVIEW OF SYSTEMS: CONSTITUTIONAL: Tired. HEENT none. RESPIRATORY none. CARDIOVASCULAR none. GASTROINTESTINAL none. as above. MUSCULOSKELETAL: Pain in the joints. DERMATOLOGICAL: Chronic lower extremity redness. LYMPHATICS none. PSYCHIATRY none. NEUROLOGICAL none. PAST MEDICAL HISTORY: Coronary artery disease, COPD, stroke, diabetes type 2, GERD, hyperlipidemia, hypertension, osteoarthritis, PA, hypothyroid, sarcoidosis, tracheobronchomalacia, Sjogren syndrome, chronic inflammatory demyelinating polyneuropathy, transverse colitis, nonalcoholic steatohepatitis, nephrolithiasis, osteoporosis, restless legs syndrome, anemia, diverticulosis, diabetes mellitus type 2, hypertension, hyperlipidemia, hypothyroid, restless legs syndrome, CHF with diastolic dysfunction, moderate degree of aortic stenosis. PAST SURGICAL HISTORY: Cholecystectomy, cardiac catheterization, bronchoscopy, cystoscopy, laminectomy, multiple back surgeries, cataract surgery, lithotripsy, skin cancer removed, bilateral carpal tunnel done, two heel spurs, right heel. PSYCH HISTORY: Anxiety and depression, claustrophobia. SOCIAL HISTORY: . Does not smoke or drink alcohol. FAMILY HISTORY: Patient is adopted. ALLERGIES: ERYTHROMYCIN, REGLAN, SULFA. MEDICATIONS: Home medications: 1. Requip 1 mg p.o. q.h.s. 2. Woman's Daily multivitamin 1 tablet p.o. daily. 3. 5 mg p.o. daily. 4. Vitamin D3 2000 units p.o. daily. 5. Aspirin 81 mg p.o. daily. 6. Proventil HFA 1-2 puffs q.6h p.r.n. 7. Toprol-XL 25 mg p.o. daily. 8. Atrovent 0.5 q.i.d. 9. Symbicort 2 puffs b.i.d. 10.Prednisone 5 mg p.o. daily. 11.Zaroxolyn 5 mg p.o. daily. 12.Lasix 2 tablets p.o. b.i.d. 13.Lipitor 40 mg q.h.s. 14.Klonopin 0.5-1 mg p.o. q.h.s. p.r.n. 15.Insulin Novolin 70/30 40 units subcutaneously b.i.d. sliding scale. 16.Fosamax 70 mg on Sundays. PHYSICAL EXAMINATION: VITAL SIGNS: Vital signs on presentation, temperature 101.7, pulse 111, respiration 24, blood pressure 123/55, pulse ox 98% on room air. GENERAL APPEARANCE: Well built, BMI 33.9, sitting up, tired appearing. EYES: Pupils are equal. Conjunctivae normal. HEENT: External appearance of nose and ears normal. Oral cavity normal. NECK: JVD not raised. Mass not palpable. RESPIRATORY: Effort normal. LUNGS: Fair air entry. CARDIOVASCULAR: 1st and 2nd sounds normal. Minimal edema. ABDOMEN: Distended, soft. Liver and spleen not palpable. LYMPHATICS: No lymph nodes palpable in the neck or axillae. PSYCHIATRY: Alert and oriented x3. Mood and affect normal. NEUROLOGICAL: Pupils equal. Cranial nerves grossly intact. Power and sensation grossly intact. DERMATOLOGICAL: Some redness of lower extremity. INVESTIGATIONS: White count 8.5, hemoglobin 13.1 potassium 3.7. Lactic acid 3.2, bilirubin 1.7. UA positive for leuko esterase, WBC. ASSESSMENT: 1. Acute uncomplicated cystitis causing sepsis present on admission. 2. Coronary artery disease. 3. Chronic obstructive pulmonary disease. 4. Diabetes mellitus type 2. 5. Gastroesophageal reflux disease. 6. Hyperlipidemia. 7. Essential hypertension. 8. Primary osteoarthritis. 9. Hypothyroid. 10.Chronic sarcoidosis. 11.Tracheobronchomalacia. 12.Sjogren syndrome. 13.Chronic inflammatory demyelinating polyneuropathy. 14.Nonalcoholic steatohepatitis. 15.Nephrolithiasis. 16.Osteoporosis. 17.Sciatica. 18.Restless legs syndrome. 19.Colonic diverticulosis. 20.Chronic congestive heart failure from diastolic dysfunction. 21.Moderate aortic stenosis, nonrheumatic. 22.Chest x-ray does show bilateral infiltrates, and patient may be developing early pneumonia. PLAN: Home medications are resumed. The patient is on IV cefepime. We will hold off vancomycin for right now. The patient Accu-Cheks will be followed. Care was discussed with the patient. The patient is getting IV fluids. ID was consulted. Care was discussed with the patient. Copy to Dr. Abel. Cultures were done. Care was discussed the patient. The patient is told the chest x-ray finding may be because of obesity. MMODL / IJN: [id number] /
[2017-10-05 22:49] LABS: Hemoglobin A1C 6.8 % (4.0-6.0)
[2017-10-06] MEDS ORDERED: VANCOMYCIN 1,500 MG in SODIUM CHLORIDE 0.9% 250 ML IVPB SCH ×2
[2017-10-06] MEDS: HYDROcodone/APAP 7.5-325MG 1 EACH TAB PO PRN ×3 (01:00→19:00)
[2017-10-06 06:58] LABS: Glucose,Whole Blood 117 mg/dL (75-99)
[2017-10-06] MEDS: INSULIN ASPART 100 UNIT/ML 1 ML 10 ML VIAL SQ SCH ×4 (07:12→21:29)
[2017-10-06] MEDS: MULTIVITAMINS, THERA 1 EACH TAB PO SCH (07:38)
[2017-10-06] MEDS: FUROSEMIDE 40 MG TAB PO SCH ×2 (07:38→14:04)
[2017-10-06] MEDS: MAGNESIUM OXIDE 400 MG TAB PO SCH (07:38)
[2017-10-06] MEDS: INSULIN NPH/REG INSULIN 70/30 300 UNIT/3 ML VIAL SQ SCH ×2 (07:38→17:43)
[2017-10-06] MEDS: METOLAZONE 5 MG TAB PO SCH (07:38)
[2017-10-06] MEDS: ASPIRIN 81 MG PO SCH (07:38)
[2017-10-06] MEDS: METOPROLOL SUCCINATE (ER) 25 MG TAB.ER.24H PO SCH (07:38)
[2017-10-06] MEDS: CEFEPIME 1 GM in SODIUM CHLORIDE 0.9% 50 ML IVPB SCH ×2 (07:42→21:28)
--- NOTE | 2017-10-06 08:54 | XR ---
EXAMINATION TYPE: XR chest 2V DATE OF EXAM: 10/06/2017 COMPARISON: 10/05/2017 TECHNIQUE: PA and lateral views submitted. HISTORY: Shortness of breath FINDINGS: Persistent diffuse interstitial pattern focal consolidation. Heart size stable. Postsurgical change c ervical spine. Arthropathy of the shoulders. Tiny right pleural effusion suggested. IMPRESSION: 1. Diffuse pleural-parenchymal changes correlate for CHF with pulmonary edema versus pneumonia. Findi ngs are similar to the prior exam.
[2017-10-06] MEDS: SYMBICORT 160-4.5 MCG INHALER INHALATION SCH ×2 (08:59→19:43)
[2017-10-06] MEDS: IPRATROPIUM 0.5 MG/2.5 ML NEBU INHALATION SCH ×4 (08:59→19:43)
[2017-10-06] MEDS ORDERED: predniSONE 5 MG TAB PO SCH (09:00)
--- NOTE | 2017-10-06 10:37 | P.CNPUL ---
History of Present Illness Consult date: 10/06/17 Reason for consult: other Chief complaint: Shaking chills, fever, urinary tract infection History of present illness: Pulmonary consult dated 10/06/2017 72-year-old female well-known to me. I see her for her lung issues. She presented to the emergency room on the with complaints of chills fever nausea. She was apparently found to have urinary tract infection was thought to have sepsis syndrome. She tells me that she apparently was holding back on urinating and she thinks that may have caused her infection. She presented with a temperature of 103.6 to triage. She had no pulmonary complaints. She does have a history of chronic bronchial asthma/COPD and history of sarcoidosis. She denies any cough wheezing shortness of breath chest congestion phlegm production hemoptysis. No chest pain or chest pressure. She really did not have much actually in the way of urinary complaints other than for some mild urgency. She is feeling much better now. She was started on vancomycin and cefepime. Her past medical history is positive for chronic bronchial asthma CAD heart failure CVA diabetes GERD deafness hyperlipidemia hypertension myocardial infarction DJD sarcoidosis transverse myelitis Sjogren' s syndrome kidney stones and a host of other medical problems. Again, currently , she is doing much better with fluids and antibiotics. Lab data significant for a cloudy urine with moderate blood positive nitrite and large positive leukocyte esterase 17 RBCs 143 WBCs and occasional bacteria. Review of Systems A 12 point review of system is positive for fever chills nausea and urgency to urinate. Respiratory status is currently stable. Past Medical History Past Medical History: Asthma, Coronary Artery Disease (CAD), Cancer, Heart Failure, COPD, CVA/TIA, Diabetes Mellitus, GERD/Reflux, Hearing Disorder / Deafness, Hyperlipidemia, Hypertension, Liver Disease, Myocardial Infarction (MS ), Osteoarthritis (OA), Pneumonia, Respiratory Disorder, Skin Disorder, Thyroid Disorder Additional Past Medical History / Comment(s): Sarcoidosis, sjogrens syndrome, 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, non- alcoholic steatohepatitis - HAS STENT, nephrolithiasis, osteoporosis,sciatica, RLS anemia,hx of TIA 2,thyroid nodule, diverticulosis, skin CA, tracheobronchomalacia, restless leg syndrome, moderate degree of aortic stenosis. CELLULITIS LLE. aortic valve pb. Last Myocardial Infarction Date:: unknown History of Any Multi-Drug Resistant Organisms: None Reported Past Surgical History: Back Surgery, Cholecystectomy, Heart Catheterization, Tubal Ligation Additional Past Surgical History / Comment(s): Bronchoscopies, cystoscopy , laminectomy total of 13 back sx including implanted pain stimulator, liver biopsy, cataract surgery , liver bx 2008 had ercp /stent in liver, skin ca removed. jonah carpal tunnel done ,heel spurs rt heel . thyroid bx(nodule) RING FINGER RIGHT HAND RIGHT Past Anesthesia/Blood Transfusion Reactions: Motion Sickness Additional Past Anesthesia/Blood Transfusion Reaction / Comment(s): Claustrophobia. No history of blood transfusions. Patient was adopted, No know family HX. Past Psychological History: Anxiety, Depression Additional Psychological History / Comment(s): Pt lives with and 1 dog in one level home 2 steps into home. Has cane/walker, shower chair, nebulizer at home. Currently no outside services. Smoking Status: Never smoker Past Alcohol Use History: None Reported Past Drug Use History: None Reported - Past Family History Father History Unknown: Yes Additional Family Medical History / Comment(s): was adopted Mother History Unknown: Yes Family Medical History: Cancer Additional Family Medical History / Comment(s): GRANDFATHER HAD COLON CA Medications and Allergies Home Medications Medication Instructions Recorded Confirmed Type Multivit with Calcium,Iron,Min 1 tab PO QAM 08/21/13 10/05/17 History [Women's Daily Multivitamin] Magnesium Gluconate [Magonate] 500 mg PO QAM 04/18/15 10/05/17 History clonazePAM [KlonoPIN] 0.5 - 1 mg PO HS PRN 04/18/15 10/05/17 History Aspirin 81 mg PO QAM 06/24/15 10/05/17 History Atorvastatin [Lipitor] 40 mg PO HS 06/24/15 10/05/17 History Cholecalciferol [Vitamin D3] 2,000 unit PO QAM 06/24/15 10/05/17 History predniSONE 5 mg PO DAILY 10/18/16 10/05/17 History Metoprolol Succinate [Toprol XL] 25 mg PO DAILY 02/10/17 10/05/17 History rOPINIRole HCL [Requip] 1 mg PO HS 02/11/17 10/05/17 History Insulin Aspart [NovoLOG See Protocol SQ ACHS 04/02/17 10/05/17 History (formulary)] Alendronate Sodium [Fosamax] 70 mg PO CURRY 06/14/17 10/05/17 History Metolazone [Zaroxolyn] 5 mg PO DAILY@0800 06/14/17 10/05/17 History Insulin NPH Hum/Reg Insulin Hm 40 unit SQ AC-BID 07/30/17 10/05/17 History [Novolin 70-30 100 Unit/ml Vial] Ipratropium Nebulized [Atrovent 0.5 mg INHALATION RT-QID 07/30/17 10/05/17 History Nebulized] Budesonide-Formot 160-4.5 Mcg 2 puff INHALATION RT-BID puff 08/05/17 10/05/17 Rx [Symbicort 160-4.5 Mcg Inhaler] Albuterol Sulfate [Proventil Hfa] 1 - 2 puff INHALATION Q6HR PRN 08/16/17 History Furosemide [Lasix] 2 tab PO BID@0900,1600 09/04/17 10/05/17 History Allergies Allergy/AdvReac Type Severity Reaction Status Date / Time erythromycin base Allergy Unknown Rash/Hives Verified 10/05/17 12:44 [Erythromycin Base] metoclopramide HCl Allergy Unknown Rash/Hives Verified 10/05/17 12:44 [From Reglan] Sulfa (Sulfonamide Allergy Unknown Rash/Hives Verified 10/05/17 12:44 Antibiotics) Physical Exam Osteopathic Statement: *. No significant issues noted on an osteopathic structural exam other than those noted in the History and Physical/Consult. Vitals: Vital Signs Temp Pulse Pulse Pulse Pulse Pulse Resp 10/06/17 09:15 80 10/06/17 08:59 80 10/06/17 08:35 92 80 92 16 10/06/17 07:00 10/06/17 04:51 98.2 F 80 16 10/05/17 21:35 99.1 F 82 18 10/05/17 19:24 86 10/05/17 19:07 89 10/05/17 15:16 92 16 10/05/17 14:41 98.4 F 92 16 10/05/17 13:52 99.5 F 94 16 10/05/17 13:48 10/05/17 13:40 99.5 F 100 16 10/05/17 12:52 98.4 F 92 16 10/05/17 12:22 10/05/17 11:23 101.8 F H 111 H 24 10/05/17 11:03 101.7 F H 104 H 20 BP BP Pulse Ox 10/06/17 09:15 10/06/17 08:59 10/06/17 08:35 10/06/17 07:00 121/60 10/06/17 04:51 92/44 98 10/05/17 21:35 143/65 95 10/05/17 19:24 10/05/17 19:07 10/05/17 15:16 10/05/17 14:41 111/67 99 10/05/17 13:52 103/50 97 10/05/17 13:48 96/44 10/05/17 13:40 85/43 98 10/05/17 12:52 111/67 99 10/05/17 12:22 99 10/05/17 11:23 123/55 98 10/05/17 11:03 109/51 97 Intake and Output 10/05/17 10/06/17 10/06/17 22:59 06:59 14:59 Intake Total 320 Balance 320 Intake: Intake, IV Titration 320 Amount Sodium Chloride 0.9% 1, 320 000 ml @ 100 mls/hr IV . Q10H STA Rx#:[id number] Other: Voiding Method Toilet Toilet Toilet # Voids 2 1 No acute distress, oriented 3. HEENT examination is grossly unremarkable. Mucous membranes are moist. No oral lesions. Neck supple. Full range of motion. No adenopathy thyromegaly or neck vein distention. Cardiovascular examination reveals regular rhythm rate. S1-S2 normal. No S3 or S4. No discernible murmur noted. Lungs reveal clear breath sounds. Her sounds are equal bilaterally. No adventitious lung sounds including wheezes rhonchi or crackles. Abdomen soft bowel sounds are heard. No masses or tenderness. Extremities are intact. No cyanosis clubbing or edema. Skin is without rash or lesion. Neurologic examination is brief but nonfocal. Results - Laboratory Findings CBC and BMP: 10/05/17 09:37 10/05/17 09:37 Abnormal lab findings: Abnormal Labs 06/16/18 06/16/18 06/16/18 09:37 09:37 09:37 Plt Count 126 L Lymphocytes # 0.5 L BUN 21 H POC Glucose (mg/dL) Plasma Lactic Acid Eddie 3.2 H* Total Bilirubin 1.7 H AST 71 H ALT 71 H Total Protein 5.9 L Albumin 3.2 L Urine Appearance Urine Protein Urine Ketones Urine Blood Urine Nitrite Ur Leukocyte Esterase Urine RBC Urine WBC Urine WBC Clumps Urine Bacteria Urine Mucus 10/05/17 10/05/17 10/05/17 11:15 17:06 20:04 Plt Count Lymphocytes # BUN POC Glucose (mg/dL) 120 H 219 H Plasma Lactic Acid Eddie Total Bilirubin AST ALT Total Protein Albumin Urine Appearance Cloudy H Urine Protein 1+ H Urine Ketones Trace H Urine Blood Moderate H Urine Nitrite Positive H Ur Leukocyte Esterase Large H Urine RBC 17 H Urine WBC 143 H Urine WBC Clumps Rare H Urine Bacteria Occasional H Urine Mucus Rare H 10/06/17 06:56 Plt Count Lymphocytes # BUN POC Glucose (mg/dL) 117 H Plasma Lactic Acid Eddie Total Bilirubin AST ALT Total Protein Albumin Urine Appearance Urine Protein Urine Ketones Urine Blood Urine Nitrite Ur Leukocyte Esterase Urine RBC Urine WBC Urine WBC Clumps Urine Bacteria Urine Mucus - Diagnostic Findings Chest x-ray: report reviewed (Labs x-rays a medications are all reviewed.), image reviewed Assessment and Plan Assessment: Assessment Urinary tract infection with sepsis syndrome Doubt active pulmonary process at this time, as patient is completely devoid of any pulmonary complaints. History of asthma, stable CAD CHF History of CVA/TIA Diabetes mellitus GERD Deafness History of hyperlipidemia History of hypertension Previous myocardial infarction Previous history of pneumonia History of sarcoidosis with previous transverse myelitis Restless leg syndrome Nonalcoholic steatohepatitis Sjogren syndrome Plan: Plan dated 10/06/2017 The patient's actually doing very well. She looks like she is very stable and feeling much improved. No further fever or chills. The patient's currently on antibiotics. Chest x-ray labs and medications are reviewed. The patient is currently not having any pulmonary issues at this time. We'll continue to follow. Prognosis is guarded. Time with Patient: Greater than 30
[2017-10-06 11:19] LABS: Glucose,Whole Blood 197 mg/dL (75-99)
--- NOTE | 2017-10-06 15:25 | P.CONS ---
History of Present Illness - Reason for Consult Consult date: 10/06/17 - Chief Complaint Fever chills and shortness of breath - History of Present Illness 72-year-old female who has a long-standing history of sarcoidosis with multiple medical complications presents to the emergency center with the onset of high-grade fevers chills nausea malaise. She actually was also having rigors and was feeling a bit short of breath. She has a known history of urinary incontinence, and also has tendency from urinary retention, she can go many hours without voiding but then she can spontaneously void or is noted she will have an incontinent void. Her urine did get cloudy dark and a bit malodorous which has happened in the past. Since coming to Hospital receiving fluids and antibiotic therapy she started to feel considerably better. She is known to the infectious disease service because of her chronic lower extremity edema and with that has difficulties with recurrent cellulitis. Hospitalized last January with a bout of severe cellulitis. She's not had further admissions for cellulitis since that time that with utilization of short stretch compression garments she's had a major improvement of her edema. She does relate that the right lower extremity recently had a small injury and had some drainage and is noticing some mild increase of edema cinches come the hospital with the fluids that she is receiving. Legs however not hurting more than usual. Patient is pleased that she is responding so quickly to treatment Review of Systems HEENT:Denies headache or acute visual change. Denies sinus or mouth discomforts. Denies neck stiffness or pain. Denies significant oral cavity pain. Denies difficulty on swallowing. Lungs: Chronic shortness of breath without significant recent change she's not having increasing amounts of cough or sputum production and no hemoptysis Cardiovascular: Denies change of baseline shortness of breath; is not having chest pain, chest wall pain, orthopnea, dyspnea on exertion, syncope Gastrointestinal:Denies nausea, vomiting, diarrhea, constipation, hematemesis, melena, hematochezia. No no significant change of bowel habit noticed. Musculoskeletal: denies significant myalgias or arthralgias. No new joint swelling. Denies new back pain. Skin: Denies new rash or lesions. No new ulcers or wounds are related.. Neuro: Denies headache or visual change. Denies any new onset weakness or difficulty with ambulation. Denies falls or seizures. Psychiatric:Denies anxiety or depression. Endocrine: Denies significant fatigue, denies significant weight loss or weight gain. 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 CELLULITIS LLE. aortic valve pb. Last Myocardial Infarction Date:: unknown History of Any Multi-Drug Resistant Organisms: None Reported Past Surgical History: Back Surgery, Cholecystectomy, Heart Catheterization, Tubal Ligation Additional Past Surgical History / Comment(s): Bronchoscopies, cystoscopy , laminectomy total of 13 back sx including implanted pain stimulator, liver biopsy, cataract surgery , liver bx 2008 had ercp /stent in liver, skin ca removed. jonah carpal tunnel done ,heel spurs rt heel . thyroid bx(nodule) RING FINGER RIGHT HAND RIGHT Past Anesthesia/Blood Transfusion Reactions: Motion Sickness Additional Past Anesthesia/Blood Transfusion Reaction / Comm: Claustrophobia. No history of blood transfusions. Patient was adopted, No know family HX. Past Psychological History: Anxiety, Depression Additional Psychological History / Comment(s): Pt lives with and 1 dog in one level home 2 steps into home. Has cane/walker, shower chair, nebulizer at home. Currently no outside services. Smoking Status: Never smoker Past Alcohol Use History: None Reported Past Drug Use History: None Reported - Past Family History Father History Unknown: Yes Additional Family Medical History / Comment(s): was adopted Mother History Unknown: Yes Family Medical History: Cancer Additional Family Medical History / Comment(s): GRANDFATHER HAD COLON CA Medications and Allergies Home Medications and Allergies Comment(s): Current Medications Hydrocodone Bitart/Acetaminophen ([place] 7.5-325) 1 each PO Q6H PRN PRN Reason: Pain Last Admin: 06/17/18 12:02 Dose: 1 each Aspirin (Aspirin) 81 mg PO QAM [facility] Last Admin: 10/06/17 07:38 Dose: 81 mg Atorvastatin Calcium (Lipitor) 40 mg PO HS [facility] Last Admin: 10/05/17 20:30 Dose: 40 mg Budesonide/Formoterol Fumarate (Symbicort 160-4.5 Mcg Inhaler) 2 puff INHALATION RT-BID [facility] Last Admin: 10/06/17 08:59 Dose: 2 puff Furosemide (Lasix) 40 mg PO BID@0900,1600 [facility] Last Admin: 10/06/17 14:04 Dose: 40 mg Cefepime HCl 1 gm/ Sodium (Chloride) 50 mls @ 100 mls/hr IVPB Q12HR [facility] Last Admin: 10/06/17 07:42 Dose: 100 mls/hr Insulin Aspart (Novolog) 0 unit SQ ACHS [facility] PRN Reason: Protocol Last Admin: 10/06/17 12:21 Dose: 1 unit Insulin Human Isoph/Insulin Regular (Humulin 70/30 Vial) 45 unit SQ AC-BID [facility] Last Admin: 10/06/17 07:38 Dose: 45 unit Ipratropium [place] (Atrovent Nebulized) 0.5 mg INHALATION RT-QID [facility] Last Admin: 10/06/17 12:09 Dose: 0.5 mg Magnesium Oxide (Mag-Ox) 400 mg PO QAM [facility] Last Admin: 10/06/17 07:38 Dose: 400 mg Metolazone (Zaroxolyn) 5 mg PO DAILY@0800 [facility] Last Admin: 10/06/17 07:38 Dose: 5 mg Metoprolol Succinate (Toprol Xl) 25 mg PO DAILY [facility] Last Admin: 10/06/17 07:38 Dose: 25 mg Miscellaneous Information (Pneumonia Protocol Utilized) 1 each PO ONCE PRN PRN Reason: Per Protocol Multivitamins (Theragran) 1 each PO QAM [facility] Last Admin: 10/06/17 07:38 Dose: 1 each Prednisone () 5 mg PO DAILY [facility] Last Admin: 10/06/17 07:38 Dose: 5 mg Ropinirole HCl (Requip) 1 mg PO HS [facility] Last Admin: 10/05/17 20:30 Dose: 1 mg Home Medications Medication Instructions Recorded Confirmed Type Multivit with Calcium,Iron,Min 1 tab PO QAM 08/21/13 10/05/17 History [Women's Daily Multivitamin] Magnesium Gluconate [Magonate] 500 mg PO QAM 04/18/15 10/05/17 History clonazePAM [KlonoPIN] 0.5 - 1 mg PO HS PRN 04/18/15 10/05/17 History Aspirin 81 mg PO QAM 06/24/15 10/05/17 History Atorvastatin [Lipitor] 40 mg PO HS 06/24/15 10/05/17 History Cholecalciferol [Vitamin D3] 2,000 unit PO QAM 06/24/15 10/05/17 History predniSONE 5 mg PO DAILY 10/18/16 10/05/17 History Metoprolol Succinate [Toprol XL] 25 mg PO DAILY 02/10/17 10/05/17 History rOPINIRole HCL [Requip] 1 mg PO HS 02/11/17 10/05/17 History Insulin Aspart [NovoLOG See Protocol SQ ACHS 04/02/17 10/05/17 History (formulary)] Alendronate Sodium [Fosamax] 70 mg PO CURRY 06/14/17 10/05/17 History Metolazone [Zaroxolyn] 5 mg PO DAILY@0800 06/14/17 10/05/17 History Insulin NPH Hum/Reg Insulin Hm 40 unit SQ AC-BID 07/30/17 10/05/17 History [Novolin 70-30 100 Unit/ml Vial] Ipratropium Nebulized [Atrovent 0.5 mg INHALATION RT-QID 07/30/17 10/05/17 History Nebulized] Budesonide-Formot 160-4.5 Mcg 2 puff INHALATION RT-BID puff 08/05/17 10/05/17 Rx [Symbicort 160-4.5 Mcg Inhaler] Albuterol Sulfate [Proventil Hfa] 1 - 2 puff INHALATION Q6HR PRN 08/16/17 History Furosemide [Lasix] 2 tab PO BID@0900,1600 09/04/17 10/05/17 History Allergies Allergy/AdvReac Type Severity Reaction Status Date / Time erythromycin base Allergy Unknown Rash/Hives Verified 10/05/17 12:44 [Erythromycin Base] metoclopramide HCl Allergy Unknown Rash/Hives Verified 10/05/17 12:44 [From Reglan] Sulfa (Sulfonamide Allergy Unknown Rash/Hives Verified 10/05/17 12:44 Antibiotics) Physical Exam Vitals: Vital Signs Temp Pulse Pulse Pulse Pulse Pulse Resp 10/06/17 12:22 84 10/06/17 12:10 84 10/06/17 09:15 80 10/06/17 08:59 80 10/06/17 08:35 92 80 92 16 10/06/17 07:00 10/06/17 04:51 98.2 F 80 16 10/05/17 21:35 99.1 F 82 18 10/05/17 19:24 86 10/05/17 19:07 89 10/05/17 15:16 92 16 BP Pulse Ox 10/06/17 12:22 97 10/06/17 12:10 10/06/17 09:15 10/06/17 08:59 10/06/17 08:35 10/06/17 07:00 121/60 10/06/17 04:51 92/44 98 10/05/17 21:35 143/65 95 10/05/17 19:24 10/05/17 19:07 10/05/17 15:16 Intake and Output 10/06/17 10/06/17 10/06/17 06:59 14:59 22:59 Intake Total 320 240 Balance 320 240 Intake: Intake, IV Titration 320 Amount Sodium Chloride 0.9% 1, 320 000 ml @ 100 mls/hr IV . Q10H STA Rx#:[id number] Oral 240 Other: Voiding Method Toilet Toilet # Voids 1 3 Pleasant obese 72-year-old woman, states feeling considerably better than even last night HEENT: Anicteric conjunctiva are pink and moist nasal mucosa grossly intact without significant lesions, there is no thrush. Neck: The neck is supple without significant lymphadenopathy or thyromegaly. Lungs: Symmetrical air entry is noted. Extremities are heard no anne bronchial sounds are noted and no dullness or egophony Heart: Regular rate and rhythm with an audible S1-S2, no S3 no S4. There is no significant murmur click or rub, PMI was nondisplaced. Abdomen: Positive bowel sounds soft and nontender without palpable masses or organomegaly. There was no guarding or rebound. Extremities: The upper extremities have excellent pulses they are symmetric, no significant petechiae or telangiectasia. No splinter hemorrhages were noted. Lower extremities show evidence of some chronic mild edema, much improved from last evaluation. She has chronic skin changes with chronic mild erythema to the lower extremities. She has 1 small blister on the right lower extremity and 1 small blister in the left lower extremity. There is no evidence of any cellulitis or draining lesions and has noted the edema is under good control Neuro: Awake alert oriented to person place and time. There are no acute new gross focal sensory motor deficits. Results CBC & Chem 7: 10/05/17 09:37 10/05/17 09:37 Labs: Abnormal Lab Results - Last 24 Hours (Table) 10/05/17 10/05/17 10/06/17 Range/Units 17:06 20:04 06:56 POC Glucose (mg/dL) 120 H 219 H 117 H (75-99) mg/dL 10/06/17 Range/Units 11:17 POC Glucose (mg/dL) 197 H (75-99) mg/dL Microbiology - Last 24 Hours (Table) 10/05/17 09:37 Blood Culture - Preliminary Blood No Growth after 24 hours 10/05/17 11:15 Urine Culture - Preliminary Urine,Voided Laboratory Results WBC 8.5 k/uL (3.8-10.6) 10/05/17 09:37 RBC 4.27 m/uL (3.80-5.40) 10/05/17 09:37 Hgb 13.1 gm/dL (11.4-16.0) 10/05/17 09:37 Hct 40.0 % (34.0-46.0) 10/05/17 09:37 MCV 93.8 fL (80.0-100.0) 10/05/17 09:37 MCH 30.6 pg (25.0-35.0) 10/05/17 09:37 MCHC 32.6 g/dL (31.0-37.0) 10/05/17 09:37 RDW 15.3 % (11.5-15.5) 10/05/17 09:37 Plt Count 126 k/uL (150-450) L 10/05/17 09:37 Neutrophils % 88 % 10/05/17 09:37 Lymphocytes % 6 % 10/05/17 09:37 Monocytes % 3 % 10/05/17 09:37 Eosinophils % 3 % 10/05/17 09:37 Basophils % 0 % 10/05/17 09:37 Neutrophils # 7.5 k/uL (1.3-7.7) 10/05/17 09:37 Lymphocytes # 0.5 k/uL (1.0-4.8) L 10/05/17 09:37 Monocytes # 0.2 k/uL (0-1.0) 10/05/17 09:37 Eosinophils # 0.3 k/uL (0-0.7) 10/05/17 09:37 Basophils # 0.0 k/uL (0-0.2) 10/05/17 09:37 Sodium 142 mmol/L (137-145) 10/05/17 09:37 Potassium 3.7 mmol/L (3.5-5.1) 10/05/17 09:37 Chloride 107 mmol/L (98-107) 10/05/17 09:37 Carbon Dioxide 24 mmol/L (22-30) 10/05/17 09:37 Anion Gap 11 mmol/L 10/05/17 09:37 BUN 21 mg/dL (7-17) H 10/05/17 09:37 Creatinine 0.60 mg/dL (0.52-1.04) 10/05/17 09:37 Est GFR (CKD-EPI)AfAm >90 (>60 ml/min/1.73 sqM) 10/05/17 09:37 Est GFR (CKD-EPI)NonAf >90 (>60 ml/min/1.73 sqM) 10/05/17 09:37 Glucose 85 mg/dL (74-99) 10/05/17 09:37 POC Glucose (mg/dL) 197 mg/dL (75-99) H 10/06/17 11:17 POC Glu [employer] Worker ID Wanda Castellano 10/06/17 11:17 Lactic Ac Sepsis Rflx Y 10/05/17 10:16 Plasma Lactic Acid Eddie 1.4 mmol/L (0.7-2.0) 10/05/17 14:35 Calcium 8.8 mg/dL (8.4-10.2) 10/05/17 09:37 Total Bilirubin 1.7 mg/dL (0.2-1.3) H 10/05/17 09:37 AST 71 U/L (14-36) H 10/05/17 09:37 ALT 71 U/L (9-52) H 10/05/17 09:37 Alkaline Phosphatase 104 U/L (38-126) 10/05/17 09:37 Total Protein 5.9 g/dL (6.3-8.2) L 10/05/17 09:37 Albumin 3.2 g/dL (3.5-5.0) L 10/05/17 09:37 Urine Color Yellow 10/05/17 11:15 Urine Appearance Cloudy (Clear) H 10/05/17 11:15 Urine pH 5.5 (5.0-8.0) 10/05/17 11:15 Ur Specific [place] 1.016 (1.001-1.035) 10/05/17 11:15 Urine Protein 1+ (Negative) H 10/05/17 11:15 Urine Glucose (UA) Negative (Negative) 10/05/17 11:15 Urine Ketones Trace (Negative) H 10/05/17 11:15 Urine Blood Moderate (Negative) H 10/05/17 11:15 Urine Nitrite Positive (Negative) H 10/05/17 11:15 Urine Bilirubin Negative (Negative) 10/05/17 11:15 Urine Urobilinogen <2.0 mg/dL (<2.0) 10/05/17 11:15 Ur Leukocyte Esterase Large (Negative) H 10/05/17 11:15 Urine RBC 17 /hpf (0-5) H 10/05/17 11:15 Urine WBC 143 /hpf (0-5) H 10/05/17 11:15 Urine WBC Clumps Rare /hpf (None) H 10/05/17 11:15 Ur Squamous Epith Cells 1 /hpf (0-4) 10/05/17 11:15 Urine Bacteria Occasional /hpf (None) H 10/05/17 11:15 Urine Mucus Rare /hpf (None) H 10/05/17 11:15 Microbiology 10/05/17 09:37 Blood Blood Culture - Preliminary No Growth after 24 hours 10/05/17 11:15 Urine,Voided Urine Culture - Preliminary Assessment and Plan (1) UTI (urinary tract infection) Narrative/Plan: 72-year-old female with a complex past medical history underlying pulmonary disease with sarcoidosis, chronic venous stasis with multiple bouts of sepsis related to cellulitis presents with high-grade fever chills rigors and feeling poorly. She is having difficulties with her urinary system and that she is having tendency for urinary retention she is able to spontaneously void but does also have incontinent voids. The urinalysis is markedly abnormal urine culture is pending. Does have a history of prior urinary culture with E. coli resistant to Unasyn, his and placed on cefepime with concerns also for any underlying pulmonary infection, prior MSSA in her sputum was noted. Blood cultures are pending this antibiotic will be continued until we have the ability to plan for her outpatient course. Blood culture is negative so far. Fortunately her pulmonary status is stable at this time and pulmonology has seen her without significant new concerns. She does have thrombocytopenia which is no worse than her usual baseline. For the lower extremity bit of swelling we'll utilize some Silvadene and Kerlix wraps which she responded very well to in the past. Current Visit: Yes Status: Acute Code(s): N39.0 - URINARY TRACT INFECTION, SITE NOT SPECIFIED SNOMED Code(s): 01763600 (2) Sarcoidosis Current Visit: No Status: Acute Code(s): D86.9 - SARCOIDOSIS, UNSPECIFIED SNOMED Code(s): 74334130 (3) Lower extremity edema Current Visit: Yes Status: Acute Code(s): R60.0 - LOCALIZED EDEMA SNOMED Code(s): 396186058
[2017-10-06 17:05] LABS: Glucose,Whole Blood 252 mg/dL (75-99)
[2017-10-06] MEDS: HYDROCORTISONE 10 MG TAB PO SCH ×2 (19:58→21:29)
[2017-10-06 20:01] LABS: Glucose,Whole Blood 249 mg/dL (75-99)
--- NOTE | 2017-10-06 20:27 | PN ---
PROGRESS NOTE DATE OF SERVICE: October 06, 2017. PRESENTING COMPLAINT: Fever and chills. INTERVAL HISTORY: This patient presents with bilateral pneumonia and UTI with sepsis. The patient feels a bit better right now. Did tolerate her diet. She is on IV cefepime. Minimal respiratory symptoms, though the patient's chest x-ray findings are pretty significant. REVIEW OF SYSTEMS: Done for constitutional, cardiovascular, GI, pulmonary and secondary findings as above. CURRENT MEDICATIONS: Include IV cefepime. PHYSICAL EXAMINATION: VITAL SIGNS: On examination, now afebrile. Pulse 72, respirations 18, blood pressure 102/57, pulse ox 97% on room air. GENERAL APPEARANCE: Sitting at the edge of the bed, tired. EYES: Pupils equal. Conjunctivae normal. HEENT: External appearance of nose and ears normal. Oral cavity normal. NECK: JVD not raised. Mass not palpable. RESPIRATORY: Effort normal. LUNGS: Decreased breath sounds. CARDIOVASCULAR: 1st and 2nd sounds normal. Minimal edema. ABDOMEN: Distended, soft. Liver and spleen not palpable. PSYCHIATRY: Alert and oriented x3. Mood and affect normal. DERMATOLOGICAL: Chronic lower extremity redness is actually better. INVESTIGATIONS: Accu-Cheks are noted. ASSESSMENT: 1. Acute uncomplicated cystitis causing sepsis present on admission and bilateral pneumonia causing sepsis present on admission with minimal respiratory symptoms. 2. Coronary artery disease. 3. Chronic obstructive pulmonary disease. 4. Diabetes mellitus type 2 on oral hypoglycemic. 5. Gastroesophageal reflux disease. 6. Hyperlipidemia. 7. Essential hypertension. 8. Primary osteoarthritis. 9. Hypothyroid. 10.Chronic sarcoidosis. 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 12.Sjogren's syndrome. 13.Chronic inflammatory demyelinating polyneuropathy. 14.Nonalcoholic steatohepatitis. 15.Chronic nephrolithiasis. 16.Osteoporosis. 17.Sciatica. 18.Restless legs syndrome. 19.Colonic diverticulosis. 20.Chronic congestive heart failure from diastolic dysfunction. Ejection fraction not known. 21.Moderate aortic stenosis, nonrheumatic. PLAN: Continue with antibiotics. Patient clinically started to respond. We will continue with IV fluids. We will put the patient on stress dose of steroids, of hydrocortisone and follow from there. MMODL / IJN: [id number] /
[2017-10-06] MEDS: ATORVASTATIN 40 MG TAB PO SCH (21:28)
[2017-10-07] MEDS: SYMBICORT 160-4.5 MCG INHALER INHALATION SCH ×2 (06:52→19:46)
[2017-10-07] MEDS: IPRATROPIUM 0.5 MG/2.5 ML NEBU INHALATION SCH ×4 (06:52→19:46)
[2017-10-07 07:06] LABS: Glucose,Whole Blood 159 mg/dL (75-99)
[2017-10-07 07:41] LABS: Basophils % (A) 0 %; Eosinophils # (A) 0.1 k/uL (0-0.7); Eosinophils % (A) 2 %; HCT 36.8 % (34.0-46.0); HGB 12.4 gm/dL (11.4-16.0); Lymphocytes % (A) 16 %; MCH 31.5 pg (25.0-35.0); MCHC 33.6 g/dL (31.0-37.0); MCV 93.8 fL (80.0-100.0); Mean Platelet Volume 6.7; Monocytes # (A) 0.4 k/uL (0-1.0); Monocytes % (A) 7 %; Neutrophils # (A) 4.2 k/uL (1.3-7.7); Neutrophils % (A) 71 %; Platelet Count 137 k/uL (150-450); RBC 3.93 m/uL (3.80-5.40); RDW 15.4 % (11.5-15.5); WBC 5.9 k/uL (3.8-10.6)
[2017-10-07] MEDS: MULTIVITAMINS, THERA 1 EACH TAB PO SCH (07:48)
[2017-10-07] MEDS: FUROSEMIDE 40 MG TAB PO SCH ×2 (07:48→17:53)
[2017-10-07] MEDS: ASPIRIN 81 MG PO SCH (07:48)
[2017-10-07] MEDS: METOPROLOL SUCCINATE (ER) 25 MG TAB.ER.24H PO SCH ×2 (07:48→07:49)
[2017-10-07] MEDS: METOLAZONE 5 MG TAB PO SCH (07:48)
[2017-10-07] MEDS: MAGNESIUM OXIDE 400 MG TAB PO SCH (07:50)
[2017-10-07] MEDS: HYDROCORTISONE 10 MG TAB PO SCH ×3 (07:50→21:54)
[2017-10-07] MEDS: INSULIN NPH/REG INSULIN 70/30 300 UNIT/3 ML VIAL SQ SCH ×2 (07:51→17:54)
[2017-10-07] MEDS: INSULIN ASPART 100 UNIT/ML 1 ML 10 ML VIAL SQ SCH ×4 (07:52→21:55)
[2017-10-07] MEDS: HYDROcodone/APAP 7.5-325MG 1 EACH TAB PO PRN ×2 (07:59→23:34)
[2017-10-07] MEDS: CEFEPIME 1 GM in SODIUM CHLORIDE 0.9% 50 ML IVPB SCH ×2 (08:00→21:55)
[2017-10-07 08:02] LABS: Anion Gap 9 mmol/L; Blood Urea Nitrogen 20 mg/dL (7-17); Calcium 8.6 mg/dL (8.4-10.2); Carbon Dioxide 28 mmol/L (22-30); Chloride 102 mmol/L (98-107); Glucose 170 mg/dL (74-99); Potassium 3.1 mmol/L (3.5-5.1); Sodium 139 mmol/L (137-145)
[2017-10-07] MEDS ORDERED: Potassium Replacement Protocol 1 EACH MISC MISCELLANE PRN ×3 (09:54→18:27)
[2017-10-07] MEDS ORDERED: Magnesium Replacement Protocol 1 EACH MISC MISCELLANE PRN (11:04)
[2017-10-07] MEDS: POTASSIUM CHLORIDE 10 MEQ in WATER FOR INJECTION 1 100ML.BAG IVPB SCH ×2 (11:30→14:08)
[2017-10-07 11:40] LABS: Glucose,Whole Blood 231 mg/dL (75-99)
[2017-10-07] MEDS: MAGNESIUM SULFATE-D5W PMX 1 GM in DEXTROSE/WATER 1 100ML.BAG IVPB SCH ×2 (12:30→14:08)
--- NOTE | 2017-10-07 13:04 | P.PN ---
Subjective Progress Note Date: 10/07/17 On 10/08/2007 and I'm seeing this patient for a follow-up. The patient came into the hospital 2 days ago with chills and fever and nausea. She was diagnosed having a urine checked infection and sepsis was also suspected. The patient is known to have bronchial asthma/COPD and previous history of sarcoidosis. She is also known to have coronary artery disease, congestion heart failure, previous history of CVA, diabetes mellitus, acid reflux, hyperlipidemia, hypertension, previous CA, previous history of Sjogren's disease , history of transverse myelitis, history of nephrolithiasis. The patient was covered with broad-spectrum antibiotics. She was given vancomycin and cefepime. The urine cultures is showing gram-negative bacillus. Blood cultures been negative thus far. Clinically the patient is doing well. She has increased edema in lower extremities bilaterally. She has been on a combination of Zaroxolyn and Lasix which she has been maintained on a chronic basis. The patient also has a component of cellulitis in lower extremities and superficial wounds and appropriate dressing has been applied to the lower extremity is bilaterally. ID is on the case. As far as the pulmonary status, the chest x-ray was reviewed and the patient has history of sarcoidosis. The patient has been on room air oxygen. There is increased infiltration bilaterally, which could potentially represent a component of pulmonary edema top of a chronic ILD. The patient had an echocardiogram back in July 2087 showed a normal LV, ejection fraction 55-60%, moderate aortic stenosis, peak gradient across the aortic valve of 46, mild MR, moderate mitral annular calcification, right ventricular systolic pressure estimated to be 40 mmHg. The GILES confirmed the presence of a mild to moderate aortic stenosis with an aortic valve area of 1.5 cm. Objective - Vital Signs Vital signs: Vital Signs Temp 98.1 F 10/07/17 05:00 Pulse 88 10/07/17 10:58 Resp 17 10/07/17 08:20 BP 130/64 10/07/17 05:00 Pulse Ox 93 L 10/07/17 05:00 Intake & Output 10/06/17 10/07/17 10/07/17 18:59 06:59 18:59 Intake Total 240 540 Balance 240 540 Weight 84 kg Intake: Oral 240 540 Other: Voiding Method Toilet Toilet Toilet # Voids 6 4 - Exam Gen. appearance she is calm comfortable likely distress Head exam was generally normal. There was no scleral icterus or corneal arcus. Mucous membranes were moist. Neck was supple and without jugular venous distension, thyromegaly, or carotid bruits. Carotids were easily palpable bilaterally. There was no adenopathy. Lungs are clear and there is some diminished present lung bases bilaterally. No significant crackles or wheezes or rhonchi. Cardiac exam revealed the PMI to be normally situated and sized. The rhythm was regular and no extrasystoles were noted during several minutes of auscultation. The first and second heart sounds were normal and physiologic splitting of the second heart sound was noted. There were no rubs, clicks, or gallops. The patient has a grade 2 systolic ejection murmur heard over the left precordial area. Abdominal exam revealed normal bowel sounds. The abdomen was soft, non-tender, and without masses, organomegaly, or appreciable enlargement of the abdominal aorta. Extremities reveal +1-2 pitting edema bilaterally. The right lower extremity below the knee is a bit erythematous extending to the ankle area. The wounds have been dressed nicely and appropriate dressing is applied. Adequate pulses in all 4 extremities bilaterally. Neurologically the patient is awake and alert and there is no focal neurological deficit. - Labs CBC & Chem 7: 10/07/17 06:51 10/07/17 06:51 Labs: Abnormal Lab Results - Last 24 Hours (Table) 10/05/17 10/06/17 10/06/17 Range/Units 09:37 17:02 19:59 Plt Count (150-450) k/uL Potassium (3.5-5.1) mmol/L BUN (7-17) mg/dL Glucose (74-99) mg/dL POC Glucose (mg/dL) 252 H 249 H (75-99) mg/dL Hemoglobin A1c 6.8 H (4.0-6.0) % Magnesium (1.6-2.3) mg/dL 10/07/17 10/07/17 10/07/17 Range/Units 06:51 06:51 06:51 Plt Count 137 L (150-450) k/uL Potassium 3.1 L (3.5-5.1) mmol/L BUN 20 H (7-17) mg/dL Glucose 170 H (74-99) mg/dL POC Glucose (mg/dL) (75-99) mg/dL Hemoglobin A1c (4.0-6.0) % Magnesium 1.5 L (1.6-2.3) mg/dL 10/07/17 10/07/17 Range/Units 07:05 11:39 Plt Count (150-450) k/uL Potassium (3.5-5.1) mmol/L BUN (7-17) mg/dL Glucose (74-99) mg/dL POC Glucose (mg/dL) 159 H 231 H (75-99) mg/dL Hemoglobin A1c (4.0-6.0) % Magnesium (1.6-2.3) mg/dL Microbiology - Last 24 Hours (Table) 10/05/17 09:37 Blood Culture - Preliminary Blood No Growth after 48 hours 10/05/17 11:15 Urine Culture - Preliminary Urine,Voided Gram Neg Bacilli Assessment and Plan Plan: Assessment 1 acute gram-negative urine tract infection, treated and currently the patient is on IV antibiotics 2 bilateral pulmonary infiltrates, consider pulmonary edema/interstitial edema on top of a chronic ILD/sarcoidosis. [place] to the patient is asymptomatic and the patient is not having any significant rest with the stress in her oxygenation is well maintained with a pulse ox of above 90% on room air 3 history of sarcoidosis 4 history of valvular heart disease with [id number] aortic stenosis and preserved LV function and moderate degree of poor hypertension 5 obesity with a BMI of 33.9 6 increased lower extremity edema with suspected cellulitis in the right lower extremity. The patient has chronic venous stasis in lower extremities bilaterally and she has had multiple bouts of cellulitis in the past. 7 history of nephrolithiasis 8 previous history of E. coli urinary tract infection, resistant to Unasyn and the patient is currently on cefepime 9 coronary artery disease 10 previous history of CVA/TIA 11 diabetes mellitus 12 hyperlipidemia 13 hypertension 14 restless leg syndrome 15 nonalcoholic steatohepatitis 16 history of testis myelitis/chronic inflammatory demyelinating polyneuropathy 17 Sjogren's disease 18 anxiety/depression 19 chronic anemia 20 diverticulosis 21 history of skin cancer 22 history of sacral bronchomalacia 23 osteoarthritis Plan Continue IV cefepime. Awaiting results of the urine culture. The patient is not revealing any signs of ongoing sepsis or infection. Continue diuretics. Monitor lower eczematous cellulitis. Keep the legs are wrapped and elevated. We'll monitor the poorly findings which probably are chronic and related to a combination of CHF on top of chronic ILD/sarcoidosis. We'll continue to follow and make further recommendations based on her progress.
[2017-10-07 17:24] LABS: Glucose,Whole Blood 372 mg/dL (75-99)
[2017-10-07] MEDS: POTASSIUM CHLORIDE ER 20 MEQ TAB.ER PO SCH ×2 (19:37→21:54)
--- NOTE | 2017-10-07 20:08 | P.PN ---
Subjective Progress Note Date: 10/07/17 72-year-old female who has a long-standing history of sarcoidosis with multiple medical complications presents to the emergency center with the onset of high-grade fevers chills nausea malaise. She actually was also having rigors and was feeling a bit short of breath. She has a known history of urinary incontinence, and also has tendency from urinary retention, she can go many hours without voiding but then she can spontaneously void or is noted she will have an incontinent void. Her urine did get cloudy dark and a bit malodorous which has happened in the past. Since coming to Hospital receiving fluids and antibiotic therapy she started to feel considerably better. She is known to the infectious disease service because of her chronic lower extremity edema and with that has difficulties with recurrent cellulitis. Hospitalized last January with a bout of severe cellulitis. She's not had further admissions for cellulitis since that time that with utilization of short stretch compression garments she's had a major improvement of her edema. She does relate that the right lower extremity recently had a small injury and had some drainage and is noticing some mild increase of edema cinches come the hospital with the fluids that she is receiving. Legs however not hurting more than usual. Patient is pleased that she is responding so quickly to treatment Is having some difficulties with the compression dressings to the lower extremities but feels better overall. Objective - Vital Signs Vital signs: Vital Signs Temp 99.1 F 10/07/17 14:50 Pulse 90 10/07/17 19:57 Resp 16 10/07/17 16:15 BP 126/60 10/07/17 14:50 Pulse Ox 95 10/07/17 14:50 Intake & Output 10/07/17 10/07/17 10/08/17 06:59 18:59 06:59 Intake Total 540 240 Balance 540 240 Weight 84 kg Intake: Oral 540 240 Other: Voiding Method Toilet Toilet # Voids 4 3 - Exam Pleasant obese 72-year-old woman, states feeling considerably better than even last night HEENT: Anicteric conjunctiva are pink and moist nasal mucosa grossly intact without significant lesions, there is no thrush. Neck: The neck is supple without significant lymphadenopathy or thyromegaly. Lungs: Symmetrical air entry is noted. Extremities are heard no anne bronchial sounds are noted and no dullness or egophony Heart: Regular rate and rhythm with an audible S1-S2, no S3 no S4. There is no significant murmur click or rub, PMI was nondisplaced. Abdomen: Positive bowel sounds soft and nontender without palpable masses or organomegaly. There was no guarding or rebound. Extremities: The upper extremities have excellent pulses they are symmetric, no significant petechiae or telangiectasia. No splinter hemorrhages were noted. Lower extremities show evidence of some chronic mild edema, much improved from last evaluation. She has chronic skin changes with chronic mild erythema to the lower extremities. She has 1 small blister on the right lower extremity and 1 small blister in the left lower extremity. There is no evidence of any cellulitis or draining lesions and has noted the edema is under good control Neuro: Awake alert oriented to person place and time. There are no acute new gross focal sensory motor deficits. - Labs CBC & Chem 7: 10/07/17 06:51 10/07/17 17:17 Labs: Abnormal Lab Results - Last 24 Hours (Table) 10/05/17 10/06/17 10/07/17 Range/Units 09:37 19:59 06:51 Plt Count 137 L (150-450) k/uL Potassium (3.5-5.1) mmol/L BUN (7-17) mg/dL Glucose (74-99) mg/dL POC Glucose (mg/dL) 249 H (75-99) mg/dL Hemoglobin A1c 6.8 H (4.0-6.0) % Magnesium (1.6-2.3) mg/dL 10/07/17 10/07/17 10/07/17 Range/Units 06:51 06:51 07:05 Plt Count (150-450) k/uL Potassium 3.1 L (3.5-5.1) mmol/L BUN 20 H (7-17) mg/dL Glucose 170 H (74-99) mg/dL POC Glucose (mg/dL) 159 H (75-99) mg/dL Hemoglobin A1c (4.0-6.0) % Magnesium 1.5 L (1.6-2.3) mg/dL 10/07/17 10/07/17 10/07/17 Range/Units 11:39 17:17 17:23 Plt Count (150-450) k/uL Potassium 3.2 L (3.5-5.1) mmol/L BUN (7-17) mg/dL Glucose (74-99) mg/dL POC Glucose (mg/dL) 231 H 372 H (75-99) mg/dL Hemoglobin A1c (4.0-6.0) % Magnesium (1.6-2.3) mg/dL Microbiology - Last 24 Hours (Table) 10/05/17 11:15 Urine Culture - Final Urine,Voided Escherichia coli 10/05/17 09:37 Blood Culture - Preliminary Blood No Growth after 48 hours Laboratory Results WBC 5.9 k/uL (3.8-10.6) 10/07/17 06:51 RBC 3.93 m/uL (3.80-5.40) 10/07/17 06:51 Hgb 12.4 gm/dL (11.4-16.0) 10/07/17 06:51 Hct 36.8 % (34.0-46.0) 10/07/17 06:51 MCV 93.8 fL (80.0-100.0) 10/07/17 06:51 MCH 31.5 pg (25.0-35.0) 10/07/17 06:51 MCHC 33.6 g/dL (31.0-37.0) 10/07/17 06:51 RDW 15.4 % (11.5-15.5) 10/07/17 06:51 Plt Count 137 k/uL (150-450) L 10/07/17 06:51 Neutrophils % 71 % 10/07/17 06:51 Lymphocytes % 16 % 10/07/17 06:51 Monocytes % 7 % 10/07/17 06:51 Eosinophils % 2 % 10/07/17 06:51 Basophils % 0 % 10/07/17 06:51 Neutrophils # 4.2 k/uL (1.3-7.7) 10/07/17 06:51 Lymphocytes # 1.0 k/uL (1.0-4.8) 10/07/17 06:51 Monocytes # 0.4 k/uL (0-1.0) 10/07/17 06:51 Eosinophils # 0.1 k/uL (0-0.7) 10/07/17 06:51 Basophils # 0.0 k/uL (0-0.2) 10/07/17 06:51 Sodium 139 mmol/L (137-145) 10/07/17 06:51 Potassium 3.2 mmol/L (3.5-5.1) L 10/07/17 17:17 Chloride 102 mmol/L (98-107) 10/07/17 06:51 Carbon Dioxide 28 mmol/L (22-30) 10/07/17 06:51 Anion Gap 9 mmol/L 10/07/17 06:51 BUN 20 mg/dL (7-17) H 10/07/17 06:51 Creatinine 0.64 mg/dL (0.52-1.04) 10/07/17 06:51 Est GFR (CKD-EPI)AfAm >90 (>60 ml/min/1.73 sqM) 10/07/17 06:51 Est GFR (CKD-EPI)NonAf >90 (>60 ml/min/1.73 sqM) 10/07/17 06:51 Glucose 170 mg/dL (74-99) H 10/07/17 06:51 POC Glucose (mg/dL) 372 mg/dL (75-99) H 10/07/17 17:23 POC Glu Belt Measurer ID Shy Thomas 10/07/17 17:[address] Glu mg/dL 148 10/05/17 09:37 Hemoglobin A1c 6.8 % (4.0-6.0) H 10/05/17 09:37 Lactic Ac Sepsis Rflx Y 10/05/17 10:16 Plasma Lactic Acid Eddie 1.4 mmol/L (0.7-2.0) 10/05/17 14:35 Calcium 8.6 mg/dL (8.4-10.2) 10/07/17 06:51 Magnesium 1.5 mg/dL (1.6-2.3) L 10/07/17 06:51 Total Bilirubin 1.7 mg/dL (0.2-1.3) H 10/05/17 09:37 AST 71 U/L (14-36) H 10/05/17 09:37 ALT 71 U/L (9-52) H 10/05/17 09:37 Alkaline Phosphatase 104 U/L (38-126) 10/05/17 09:37 Total Protein 5.9 g/dL (6.3-8.2) L 10/05/17 09:37 Albumin 3.2 g/dL (3.5-5.0) L 10/05/17 09:37 Urine Color Yellow 10/05/17 11:15 Urine Appearance Cloudy (Clear) H 10/05/17 11:15 Urine pH 5.5 (5.0-8.0) 10/05/17 11:15 Ur Specific [place] 1.016 (1.001-1.035) 10/05/17 11:15 Urine Protein 1+ (Negative) H 10/05/17 11:15 Urine Glucose (UA) Negative (Negative) 10/05/17 11:15 Urine Ketones Trace (Negative) H 10/05/17 11:15 Urine Blood Moderate (Negative) H 10/05/17 11:15 Urine Nitrite Positive (Negative) H 10/05/17 11:15 Urine Bilirubin Negative (Negative) 10/05/17 11:15 Urine Urobilinogen <2.0 mg/dL (<2.0) 10/05/17 11:15 Ur Leukocyte Esterase Large (Negative) H 10/05/17 11:15 Urine RBC 17 /hpf (0-5) H 10/05/17 11:15 Urine WBC 143 /hpf (0-5) H 10/05/17 11:15 Urine WBC Clumps Rare /hpf (None) H 10/05/17 11:15 Ur Squamous Epith Cells 1 /hpf (0-4) 10/05/17 11:15 Urine Bacteria Occasional /hpf (None) H 10/05/17 11:15 Urine Mucus Rare /hpf (None) H 10/05/17 11:15 Microbiology 10/05/17 11:15 Urine,Voided Urine Culture - Final Escherichia coli 10/05/17 09:37 Blood Blood Culture - Preliminary No Growth after 48 hours Assessment and Plan (1) UTI (urinary tract infection) Narrative/Plan: 72-year-old female with a complex past medical history underlying pulmonary disease with sarcoidosis, chronic venous stasis with multiple bouts of sepsis related to cellulitis presents with high-grade fever chills rigors and feeling poorly. She is having difficulties with her urinary system and that she is having tendency for urinary retention she is able to spontaneously void but does also have incontinent voids. The urinalysis is markedly abnormal urine culture is pending. Does have a history of prior urinary culture with E. coli resistant to Unasyn, his and placed on cefepime with concerns also for any underlying pulmonary infection, prior MSSA in her sputum was noted. Blood cultures are pending this antibiotic will be continued until we have the ability to plan for her outpatient course. Blood culture is negative so far. Fortunately her pulmonary status is stable at this time and pulmonology has seen her without significant new concerns. She does have thrombocytopenia which is no worse than her usual baseline. For the lower extremity bit of swelling we'll utilize some Silvadene and Kerlix wraps which she responded very well to in the past. 10/07/2017 reveals the patient be feeling better. The urine culture does verify the E. coli which fortunately is not highly resistant. Blood culture is negative and overall she is showing a marked improvement. Lower extremity edema is improved she is struggling with the current Osei wraps, have asked for the longer Osei wraps which should provide a better fitment wrapping of her lower extremities. She should elevate them when she is at rest. Her fever is resolved and her thrombocytopenia is slightly improved. She likely be discharging home on oral antibiotic therapy in the near future. We'll be able to utilize ciprofloxacin at discharge. Current Visit: Yes Status: Acute Code(s): N39.0 - URINARY TRACT INFECTION, SITE NOT SPECIFIED SNOMED Code(s): 69771808 (2) Sarcoidosis Current Visit: No Status: Acute Code(s): D86.9 - SARCOIDOSIS, UNSPECIFIED SNOMED Code(s): 24731264 (3) Lower extremity edema Current Visit: Yes Status: Acute Code(s): R60.0 - LOCALIZED EDEMA SNOMED Code(s): 877728342
[2017-10-07 20:18] LABS: Glucose,Whole Blood 518 mg/dL (75-99)
[2017-10-07 20:18] LABS: Glucose,Whole Blood 505 mg/dL (75-99)
[2017-10-07] MEDS ORDERED: INSULIN ASPART 100 UNIT/ML 1 ML 10 ML VIAL SQ ONE (21:34)
[2017-10-07] MEDS: ATORVASTATIN 40 MG TAB PO SCH (21:55)
[2017-10-08 02:23] LABS: Glucose,Whole Blood 225 mg/dL (75-99)
[2017-10-08] MEDS ORDERED: INSULIN ASPART 100 UNIT/ML 1 ML 10 ML VIAL SQ ONE (02:43)
[2017-10-08 07:00] LABS: Glucose,Whole Blood 226 mg/dL (75-99)
[2017-10-08] MEDS: SYMBICORT 160-4.5 MCG INHALER INHALATION SCH (07:05)
[2017-10-08] MEDS: IPRATROPIUM 0.5 MG/2.5 ML NEBU INHALATION SCH ×3 (07:05→15:21)
[2017-10-08 07:18] VITALS: RESP 16
[2017-10-08] MEDS: INSULIN ASPART 100 UNIT/ML 1 ML 10 ML VIAL SQ SCH ×2 (07:46→12:33)
[2017-10-08] MEDS: METOLAZONE 5 MG TAB PO SCH (07:47)
[2017-10-08] MEDS: INSULIN NPH/REG INSULIN 70/30 300 UNIT/3 ML VIAL SQ SCH (07:47)
[2017-10-08] MEDS: ASPIRIN 81 MG PO SCH (07:48)
[2017-10-08] MEDS: CEFEPIME 1 GM in SODIUM CHLORIDE 0.9% 50 ML IVPB SCH (07:48)
[2017-10-08] MEDS: FUROSEMIDE 40 MG TAB PO SCH (07:49)
[2017-10-08] MEDS: MULTIVITAMINS, THERA 1 EACH TAB PO SCH (07:50)
[2017-10-08] MEDS: MAGNESIUM OXIDE 400 MG TAB PO SCH (07:50)
[2017-10-08] MEDS: HYDROCORTISONE 10 MG TAB PO SCH (07:54)
[2017-10-08 08:18] LABS: Anion Gap 11 mmol/L; Blood Urea Nitrogen 23 mg/dL (7-17); Calcium 8.9 mg/dL (8.4-10.2); Carbon Dioxide 30 mmol/L (22-30); Chloride 98 mmol/L (98-107); Glucose 217 mg/dL (74-99); Magnesium 1.7 mg/dL (1.6-2.3); Sodium 139 mmol/L (137-145)
[2017-10-08 08:23] LABS: Potassium 2.9 mmol/L (3.5-5.1)
[2017-10-08] MEDS ORDERED: POTASSIUM CHLORIDE 10 MEQ in WATER FOR INJECTION 1 100ML.BAG IVPB SCH (09:00)
[2017-10-08] MEDS: POTASSIUM CHLORIDE ER 20 MEQ TAB.ER PO SCH ×2 (10:46→12:12)
[2017-10-08 10:50] VITALS: BP 121/58; TEMP 98.6
--- NOTE | 2017-10-08 11:35 | XR ---
EXAMINATION TYPE: XR chest 2V DATE OF EXAM: 10/08/2017 COMPARISON: Prior chest x-ray 2 days ago and older studies HISTORY: History of sarcoidosis with shortness of breath TECHNIQUE: Frontal and lateral views of the chest are obtained. FINDINGS: There is chronic parenchymal fibrosis most prominent in the lung bases with chronic opacity right lung base noted There is no new suspicious focal air space opacity, pleural effusion, or pneum othorax seen. The cardiac silhouette size is stable and within normal limits. Anterior fusion plate in the cervical spine is partially imaged. Postsurgical change in the lumbar spine is partially image d. Degenerative change bilateral glenohumeral joints is redemonstrated. IMPRESSION: Chronic parenchymal fibrosis and chronic right basilar opacity, no new infiltrate is see n.
[2017-10-08 11:36] LABS: Glucose,Whole Blood 270 mg/dL (75-99)
[2017-10-08 12:06] VITALS: PULSE 76
[2017-10-08] MEDS: HYDROcodone/APAP 7.5-325MG 1 EACH TAB PO PRN (12:18)
--- NOTE | 2017-10-08 13:01 | P.PN ---
Subjective Progress Note Date: 10/08/17 Principal diagnosis: Acute gram-negative urinary tract infection, bilateral pulmonary infiltrates secondary to pulmonary edema/interstitial edema ground of chronic ILD/ sarcoidosis On 10/08/2007 and I'm seeing this patient for a follow-up. The patient came into the hospital 2 days ago with chills and fever and nausea. She was diagnosed having a urine checked infection and sepsis was also suspected. The patient is known to have bronchial asthma/COPD and previous history of sarcoidosis. She is also known to have coronary artery disease, congestion heart failure, previous history of CVA, diabetes mellitus, acid reflux, hyperlipidemia, hypertension, previous PR, previous history of Sjogren's disease , history of transverse myelitis, history of nephrolithiasis. The patient was covered with broad-spectrum antibiotics. She was given vancomycin and cefepime. The urine cultures is showing gram-negative bacillus. Blood cultures been negative thus far. Clinically the patient is doing well. She has increased edema in lower extremities bilaterally. She has been on a combination of Zaroxolyn and Lasix which she has been maintained on a chronic basis. The patient also has a component of cellulitis in lower extremities and superficial wounds and appropriate dressing has been applied to the lower extremity is bilaterally. ID is on the case. As far as the pulmonary status, the chest x-ray was reviewed and the patient has history of sarcoidosis. The patient has been on room air oxygen. There is increased infiltration bilaterally, which could potentially represent a component of pulmonary edema top of a chronic ILD. The patient had an echocardiogram back in July 2087 showed a normal LV, ejection fraction 55-60%, moderate aortic stenosis, peak gradient across the aortic valve of 46, mild MR, moderate mitral annular calcification, right ventricular systolic pressure estimated to be 40 mmHg. The GILES confirmed the presence of a mild to moderate aortic stenosis with an aortic valve area of 1.5 cm. On 10/08/2017 patient seen in follow-up on medical surgical floor. She is awake , alert, in no acute distress, he continues on oral diuretics, she denies any shortness of breath, or chest pain. Her bilateral lower extremities appear less red, and they have been Osei wrapped, and Silvadene is being applied to them. Pulse ox is 97%, vital signs are stable, patient is afebrile, urine cultures positive for E. coli, patient remains on cefepime, to which the organism is susceptible. Objective - Vital Signs Vital signs: Vital Signs Temp 98.6 F 10/08/17 08:15 Pulse 76 10/08/17 11:21 Resp 16 10/08/17 11:07 BP 121/58 10/08/17 08:15 Pulse Ox 97 10/08/17 08:15 Intake & Output 10/07/17 10/08/17 10/08/17 18:59 06:59 18:59 Intake Total 240 920 Balance 240 920 Weight 84 kg Intake: Intake, IV Titration 50 Amount Cefepime 1 gm In Sodium 50 Chloride 0.9% 50 ml @ 100 mls/hr IVPB Q12HR [facility] Rx #:[id number] Oral 240 870 Other: Voiding Method Toilet Toilet Toilet # Voids 3 4 # Bowel Movements 0 - Exam Gen. appearance she is calm comfortable likely distress Head exam was generally normal. There was no scleral icterus or corneal arcus. Mucous membranes were moist. Neck was supple and without jugular venous distension, thyromegaly, or carotid bruits. Carotids were easily palpable bilaterally. There was no adenopathy. Lungs are clear and there is some diminished present lung bases bilaterally. No significant crackles or wheezes or rhonchi. Cardiac exam revealed the PMI to be normally situated and sized. The rhythm was regular and no extrasystoles were noted during several minutes of auscultation. The first and second heart sounds were normal and physiologic splitting of the second heart sound was noted. There were no rubs, clicks, or gallops. The patient has a grade 2 systolic ejection murmur heard over the left precordial area. Abdominal exam revealed normal bowel sounds. The abdomen was soft, non-tender, and without masses, organomegaly, or appreciable enlargement of the abdominal aorta. Extremities reveal +1-2 pitting edema bilaterally. The right lower extremity below the knee is a bit erythematous extending to the ankle area, appears a bit improved yesterday's exam. The wounds have been dressed nicely and appropriate dressing is applied. Adequate pulses in all 4 extremities bilaterally. Neurologically the patient is awake and alert and there is no focal neurological deficit. - Labs CBC & Chem 7: 10/07/17 06:51 10/08/17 07:25 Labs: Abnormal Lab Results - Last 24 Hours (Table) 10/07/17 10/07/17 10/07/17 Range/Units 17:17 17:23 20:15 Potassium 3.2 L (3.5-5.1) mmol/L BUN (7-17) mg/dL Glucose (74-99) mg/dL POC Glucose (mg/dL) 372 H 518 H (75-99) mg/dL 10/07/17 10/08/17 10/08/17 Range/Units 20:16 02:17 06:58 Potassium (3.5-5.1) mmol/L BUN (7-17) mg/dL Glucose (74-99) mg/dL POC Glucose (mg/dL) 505 H 225 H 226 H (75-99) mg/dL 10/08/17 10/08/17 Range/Units 07:25 11:35 Potassium 2.9 L* (3.5-5.1) mmol/L BUN 23 H (7-17) mg/dL Glucose 217 H (74-99) mg/dL POC Glucose (mg/dL) 270 H (75-99) mg/dL Microbiology - Last 24 Hours (Table) 10/05/17 09:37 Blood Culture - Preliminary Blood No Growth after 72 hours 10/05/17 11:15 Urine Culture - Final Urine,Voided Escherichia coli Assessment and Plan Plan: Assessment: 1 acute gram-negative urine tract infection, treated and currently the patient is on IV antibiotics. Cultures positive for E. coli, and patient is being treated with cefepime to which the organism is susceptible 2 bilateral pulmonary infiltrates, consider pulmonary edema/interstitial edema on top of a chronic ILD/sarcoidosis. the patient is asymptomatic and the patient is not having any significant rest with the stress in her oxygenation is well maintained with a pulse ox of above 90% on room air 3 history of sarcoidosis 4 history of valvular heart disease with [id number] aortic stenosis and preserved LV function and moderate degree of poor hypertension 5 obesity with a BMI of 33.9 6 increased lower extremity edema with suspected cellulitis in the right lower extremity. The patient has chronic venous stasis in lower extremities bilaterally and she has had multiple bouts of cellulitis in the past. 7 history of nephrolithiasis 8 previous history of E. 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 Denies any dyspnea, we will update repeat chest x-ray today, continue with oral diuretics, Symbicort. Correct serum potassium per protocol, daily weights and accurate intake and output. continue to follow. I performed a history & physical examination of the patient and discussed their management with my nurse practitioner, Trudy Maldonado. I reviewed the nurse practitioner's note and agree with the documented findings and plan of care. Lung sounds are clear, diminished at the bases. The findings and the impression was discussed with the patient. I attest to the documentation by the nurse practitioner. Time with Patient: Less than 30
--- NOTE | 2017-10-08 17:02 | P.PN ---
Subjective Progress Note Date: 10/07/17 Progress note being dictated for Dr. Villareal Interval history: This a 72-year-old female admitted with acute UTI, with sepsis and multiple other medical issues. Maintained on IV antibiotics of cefepime as per infectious disease. Tolerating diet with no nausea vomiting or diarrhea. Bilateral lower extremity cellulitis improving. Continues on oral diuretics. Denies chest pain, palpitations or increased shortness of breath. Bilateral pulmonary infiltrates, asymptomatic- maintaining O2 sats in the mid 90s on room air. Objective - Vital Signs Vital signs: Vital Signs Temp 99.1 F 10/07/17 14:50 Pulse 92 10/07/17 16:15 Resp 16 10/07/17 16:15 BP 126/60 10/07/17 14:50 Pulse Ox 95 10/07/17 14:50 Intake & Output 10/06/17 10/07/17 10/07/17 18:59 06:59 18:59 Intake Total 240 540 240 Balance 240 540 240 Weight 84 kg Intake: Oral 240 540 240 Other: Voiding Method Toilet Toilet Toilet # Voids 6 4 3 - Exam PHYSICAL EXAM: VITAL SIGNS: As above GENERAL: Sitting up at side of bed, no acute distress HEENT: Conjunctivae normal. eyes normal. Oral mucosa moist NECK: No JVD. No thyroid enlargement. No LNs CARDIOVASCULAR: S1, S2 muffled. Positive systolic murmur, no rubs, no gallops RESPIRATION: Breath sounds diminished in the bases. No rhonchi. Occasional fine scattered crackles. ABDOMEN: Soft, nontender . No guarding. no masses palpable.Bowel sounds heard. LEGS: Right lower extremity erythema. Dressings clean dry and intact. PSYCHIATRY: Alert and oriented -3, mood and affect normal. NERVOUS SYSTEM: Cranial N 2-12 grossly normal. Moves all 4 limbs. Diffuse weakness No focal deficits. Lymphatic system. No LN neck axilla or groin. - Labs CBC & Chem 7: 10/07/17 06:51 10/08/17 14:03 Labs: Abnormal Lab Results - Last 24 Hours (Table) 10/05/17 10/06/17 10/07/17 Range/Units 09:37 19:59 06:51 Plt Count 137 L (150-450) k/uL Potassium (3.5-5.1) mmol/L BUN (7-17) mg/dL Glucose (74-99) mg/dL POC Glucose (mg/dL) 249 H (75-99) mg/dL Hemoglobin A1c 6.8 H (4.0-6.0) % Magnesium (1.6-2.3) mg/dL 10/07/17 10/07/17 10/07/17 Range/Units 06:51 06:51 07:05 Plt Count (150-450) k/uL Potassium 3.1 L (3.5-5.1) mmol/L BUN 20 H (7-17) mg/dL Glucose 170 H (74-99) mg/dL POC Glucose (mg/dL) 159 H (75-99) mg/dL Hemoglobin A1c (4.0-6.0) % Magnesium 1.5 L (1.6-2.3) mg/dL 10/07/17 10/07/17 10/07/17 Range/Units 11:39 17:17 17:23 Plt Count (150-450) k/uL Potassium 3.2 L (3.5-5.1) mmol/L BUN (7-17) mg/dL Glucose (74-99) mg/dL POC Glucose (mg/dL) 231 H 372 H (75-99) mg/dL Hemoglobin A1c (4.0-6.0) % Magnesium (1.6-2.3) mg/dL Microbiology - Last 24 Hours (Table) 10/05/17 09:37 Blood Culture - Preliminary Blood No Growth after 48 hours 10/05/17 11:15 Urine Culture - Preliminary Urine,Voided Gram Neg Bacilli Assessment and Plan Assessment: 1. Sepsis secondary to Acute UTI, gram-negative, uncomplicated cystitis , present on admission. 2. Bilateral pulmonary infiltrates, possibly pulmonary edema, interstitial edema on top of chronic ILD/sarcoidosis as per pulmonary, 3. Chronic asthma, stable 4. Moderate aortic stenosis 5. Diabetes mellitus type 2 6. CAD 6. Sjogren syndrome Plan: Continue on current medication regime ,monitoring and symptomatic treatment. Antibiotics/Wound Care as per infectious disease. Final urine culture results/sensitivities pending. Discharge planning in progress for tomorrow. The impression and plan of care has been dictated as directed. : I performed a history and examination of this patient, discussed the same with the dictator. I agree with the dictator's note ,documented as a scribe. Any additional findings or plans will be noted.
--- NOTE | 2017-10-08 17:08 | P.DS ---
Providers Date of admission: 10/05/17 12:22 Expected date of discharge: 10/08/17 Attending physician: Ronan Villareal Consults: 10/05/17 12:22 Consult Physician Stat Consulting Provider: Antonio Bernstein Consult Reason/Comments: Pneumonia Do you want consulting provider notified?: Yes Consult Physician Stat Consulting Provider: Yovany Arzola Consult Reason/Comments: Pneumonia, UTI Do you want consulting provider notified?: Yes Primary care physician: Harry Hawthorn Center Course: Final Diagnoses: 1. Sepsis secondary to Acute UTI, Ecoli, uncomplicated cystitis , present on admission. 2. Bilateral pulmonary infiltrates, possibly pulmonary edema, interstitial edema on top of chronic ILD/sarcoidosis as per pulmonary, 3. Chronic asthma, stable 4. Moderate aortic stenosis 5. Diabetes mellitus type 2 6. CAD 6. Sjogren syndrome Hospital course:This a 72-year-old female admitted with acute UTI, with Ecoli, bilateral pulmonary infiltrates and multiple other medical issues. Evaluated by pulmonary and infectious disease. Maintained on IV antibiotics of cefepime as per infectious disease. Bilateral pulmonary infiltrates, asymptomatic- maintaining O2 sats in the mid 90s on room air. Possibly pulmonary edema, interstitial edema on top of chronic ILD/sarcoidosis as per pulmonary. Patient has been cleared for discharge by both pulmonary and infectious disease. Patient is being discharged home in stable condition with her prognosis. EXAM: GENERAL: Sitting up at side of bed, no acute distress CARDIOVASCULAR: S1, S2 muffled. Positive systolic murmur, no rubs, no gallops RESPIRATION: Breath sounds diminished in the bases. No rhonchi. Occasional fine scattered crackles. ABDOMEN: Soft, nontender . No guarding. no masses palpable.Bowel sounds heard. LEGS: Improving Right lower extremity erythema. Dressings clean dry and intact. NERVOUS SYSTEM: Cranial N 2-12 grossly normal. Moves all 4 limbs. Diffuse weakness No focal deficits. Time taken: 35 minutes Patient Condition at Discharge: Stable Plan - Discharge Summary Discharge Rx Participant: No New Discharge Prescriptions: New Ciprofloxacin HCl [Cipro] 500 mg PO Q12HR #14 tablet SILVER sulfADIAZINE CREAM [Silvadene Cream] 1 applic TOPICAL BID applic Potassium Chloride ER [K-Dur 20] 20 meq PO DAILY #30 tab Continue Multivit with Calcium,Iron,Min [Women's Daily Multivitamin] 1 tab PO QAM Magnesium Gluconate [Magonate] 500 mg PO QAM clonazePAM [KlonoPIN] 0.5 - 1 mg PO HS PRN PRN Reason: restless leg Cholecalciferol [Vitamin D3] 2,000 unit PO QAM Aspirin 81 mg PO QAM Atorvastatin [Lipitor] 40 mg PO HS predniSONE 5 mg PO DAILY Metoprolol Succinate [Toprol XL] 25 mg PO DAILY rOPINIRole HCL [Requip] 1 mg PO HS Insulin Aspart [NovoLOG (formulary)] See Protocol SQ ACHS Alendronate Sodium [Fosamax] 70 mg PO CURRY Metolazone [Zaroxolyn] 5 mg PO DAILY@0800 Insulin NPH Hum/Reg Insulin Hm [NovoLIN 70-30 100 UNIT/ML VIAL] 40 unit SQ AC -BID Ipratropium Nebulized [Atrovent Nebulized] 0.5 mg INHALATION RT-QID Budesonide-Formot 160-4.5 Mcg [Symbicort 160-4.5 Mcg Inhaler] 2 puff INHALATION RT-BID puff Albuterol Sulfate [Proventil Hfa] 1 - 2 puff INHALATION Q6HR PRN PRN Reason: COPD Furosemide [Lasix] 2 tab PO BID@0900,1600 Cetirizine HCl [Zyrtec] 1 tab PO HS Hydrocodone/Acetaminophen [Hydrocodon-Acetaminoph 7.5-325] 1 tab PO Q6HR PRN PRN Reason: Pain Discharge Medication List Multivit with Calcium,Iron,Min [Women's Daily Multivitamin] 1 tab PO QAM [History] Magnesium Gluconate [Magonate] 500 mg PO QAM 04/18/15 [History] clonazePAM [KlonoPIN] 0.5 - 1 mg PO HS PRN 04/18/15 [History] Aspirin 81 mg PO QAM 06/24/15 [History] Atorvastatin [Lipitor] 40 mg PO HS 06/24/15 [History] Cholecalciferol [Vitamin D3] 2,000 unit PO QAM 06/24/15 [History] predniSONE 5 mg PO DAILY 10/18/16 [History] Metoprolol Succinate [Toprol XL] 25 mg PO DAILY 02/10/17 [History] rOPINIRole HCL [Requip] 1 mg PO HS 02/11/17 [History] Insulin Aspart [NovoLOG (formulary)] See Protocol SQ ACHS 04/02/17 [History] Alendronate Sodium [Fosamax] 70 mg PO CURRY 06/14/17 [History] Metolazone [Zaroxolyn] 5 mg PO DAILY@0800 06/14/17 [History] Insulin NPH Hum/Reg Insulin Hm [NovoLIN 70-30 100 UNIT/ML VIAL] 40 unit SQ AC- BID 07/30/17 [History] Ipratropium Nebulized [Atrovent Nebulized] 0.5 mg INHALATION RT-QID 07/30/17 [ History] Budesonide-Formot 160-4.5 Mcg [Symbicort 160-4.5 Mcg Inhaler] 2 puff INHALATION RT-BID puff 08/05/17 [Rx] Albuterol Sulfate [Proventil Hfa] 1 - 2 puff INHALATION Q6HR PRN 08/16/17 [ History] Furosemide [Lasix] 2 tab PO BID@0900,1600 09/04/17 [History] Ciprofloxacin HCl [Cipro] 500 mg PO Q12HR #14 tablet 10/07/17 [Rx] Cetirizine HCl [Zyrtec] 1 tab PO HS 10/08/17 [History] Hydrocodone/Acetaminophen [Hydrocodon-Acetaminoph 7.5-325] 1 tab PO Q6HR PRN [History] Potassium Chloride ER [K-Dur 20] 20 meq PO DAILY #30 tab 10/08/17 [Rx] SILVER sulfADIAZINE CREAM [Silvadene Cream] 1 applic TOPICAL BID applic [Rx] Follow up Appointment(s)/Referral(s): Harry Abel DO [Primary Care Provider] - 10/15/17 1:40 pm (ragini will see the patient at office he is out of town) David Ramirez MD [STAFF PHYSICIAN] - 10/18/17 1:45 pm Ambulatory/Diagnostic Orders: Complete Blood Count w/diff [LAB.AMB] Time Frame: 3 Days, Location: Determined By Patient Patient Instructions/Handouts: Ciprofloxacin (By mouth), Potassium Chloride ( By mouth), Urinary Tract Infection in Women (DC), Pneumonia (DC) Activity/Diet/Wound Care/Special Instructions: Diet: Heart Healthy Carb Conscious Activity: As Tolerated Discharge Disposition: HOME SELF-CARE
== END 2017-10-08 16:10 | disposition home or self-care (01) | DRG 872 ==
LOC: EC 09:26 → 5MS5E 12:22
PROVIDERS: ADMIT Hospitalist; ATTEND Hospitalist
DX: A41.51 Sepsis due to Escherichia coli [E. coli] (principal); G61.81 Chronic inflammatory demyelinating polyneuritis; G37.3 Acute transverse myelitis in demyelinating disease of central nervous system; I50.32 Chronic diastolic (congestive) heart failure; L03.115 Cellulitis of right lower limb; L03.116 Cellulitis of left lower limb; N30.90 Cystitis, unspecified without hematuria; D64.9 Anemia, unspecified; D69.6 Thrombocytopenia, unspecified; D86.9 Sarcoidosis, unspecified; E03.9 Hypothyroidism, unspecified; E11.9 Type 2 diabetes mellitus without complications; E66.9 Obesity, unspecified; E78.5 Hyperlipidemia, unspecified; F32.9 Major depressive disorder, single episode, unspecified; F40.240 Claustrophobia; G25.81 Restless legs syndrome; H91.90 Unspecified hearing loss, unspecified ear; I11.0 Hypertensive heart disease with heart failure; I25.10 Atherosclerotic heart disease of native coronary artery without angina pectoris; I25.2 Old myocardial infarction; I35.0 Nonrheumatic aortic (valve) stenosis; Z86.73 Personal history of transient ischemic attack (TIA), and cerebral infarction without residual deficits; Z87.442 Personal history of urinary calculi; I87.8 Other specified disorders of veins; Z87.01 Personal history of pneumonia (recurrent); J39.8 Other specified diseases of upper respiratory tract; J44.9 Chronic obstructive pulmonary disease, unspecified; J98.09 Other diseases of bronchus, not elsewhere classified; K21.9 Gastro-esophageal reflux disease without esophagitis; K52.9 Noninfective gastroenteritis and colitis, unspecified; K57.30 Diverticulosis of large intestine without perforation or abscess without bleeding; K75.81 Nonalcoholic steatohepatitis (NASH); M19.91 Primary osteoarthritis, unspecified site; M35.00 Sjogren syndrome, unspecified; M54.30 Sciatica, unspecified side; M81.0 Age-related osteoporosis without current pathological fracture; N20.0 Calculus of kidney; Z68.33 Body mass index [BMI] 33.0-33.9, adult; Z79.4 Long term (current) use of insulin; Z79.51 Long term (current) use of inhaled steroids; Z79.82 Long term (current) use of aspirin; Z79.83 Long term (current) use of bisphosphonates; Z79.899 Other long term (current) drug therapy; Z80.0 Family history of malignant neoplasm of digestive organs; Z85.828 Personal history of other malignant neoplasm of skin; Z87.440 Personal history of urinary (tract) infections; E07.9 Disorder of thyroid, unspecified; Z79.52 Long term (current) use of systemic steroids; R32 Unspecified urinary incontinence; Z88.1 Allergy status to other antibiotic agents; Z88.2 Allergy status to sulfonamides; Z88.8 Allergy status to other drugs, medicaments and biological substances; Z96.89 Presence of other specified functional implants
CPT/HCPCS: 36415; 71046; 76705; 80048; 80053; 81001; 83036; 83605; 83735; 84132; 85025; 87040; 87077; 87086; 87186; 94640; 94760; 96361; 96365; 99285

== ENCOUNTER 2017-12-24 11:27 | Emergency (ER) | payer MEDICARE, OTHER ==
[2017-12-24] MEDS ORDERED: SODIUM CHLORIDE 0.9% 500 ML IV STA (11:54)
--- NOTE | 2017-12-24 11:56 | ED ---
General Adult HPI - General Chief complaint: Recheck/Abnormal Lab/Rx Stated complaint: POST OP BLEEDING Time Seen by Provider: 12/24/17 11:43 Source: patient, RN notes reviewed Mode of arrival: wheelchair Limitations: no limitations - History of Present Illness Initial comments: Patient 72-year-old female's presented to the emergency room today with a chief complaint of possible infection to a nerve stimulator that is implanted in the left lower back. Patient states that she had a battery replaced tenderness through [facility]. She states that she noticed some drainage coming from the area 4 days ago. She states that it has been a bloody drainage to start with and now has turned into more of a clear drainage. Patient states there is local tenderness around the area. She was told that there is some redness. Patient denies any other complaints. She states she did call the surgeon who is in the OR today and was advised come here to the hospital for evaluation. Patient denies any recent fever, chills, shortness of breath, chest pain, abdominal pain, nausea or vomiting, numbness or tingling, headaches or visual changes, or any other complaints. - Related Data Home Medications Medication Instructions Recorded Confirmed Multivit with Calcium,Iron,Min 1 tab PO QAM 08/21/13 12/24/17 [Women's Daily Multivitamin] Magnesium Gluconate [Magonate] 500 mg PO QAM 04/18/15 12/24/17 clonazePAM [KlonoPIN] 0.5 mg PO HS 04/18/15 12/24/17 Aspirin 81 mg PO QAM 06/24/15 12/24/17 Atorvastatin [Lipitor] 40 mg PO HS 06/24/15 12/24/17 Cholecalciferol [Vitamin D3] 2,000 unit PO QAM 06/24/15 12/24/17 predniSONE 5 mg PO DAILY 10/18/16 12/24/17 Metoprolol Succinate [Toprol XL] 25 mg PO DAILY 02/10/17 12/24/17 rOPINIRole HCL [Requip] 1 mg PO HS 02/11/17 12/24/17 Insulin Aspart [NovoLOG See Protocol SQ ACHS 04/02/17 12/24/17 (formulary)] Alendronate Sodium [Fosamax] 70 mg PO CURRY 06/14/17 12/24/17 Insulin NPH Hum/Reg Insulin Hm 45 unit SQ AC-BID 07/30/17 12/24/17 [NovoLIN 70-30 100 UNIT/ML VIAL] Ipratropium Nebulized [Atrovent 0.5 mg INHALATION RT-QID PRN 07/30/17 12/24/17 Nebulized] Albuterol Sulfate [Proventil Hfa] 1 - 2 puff INHALATION RT-Q6H PRN 08/16/1708/07 Cetirizine HCl [Zyrtec] 10 mg PO HS 10/08/17 12/24/17 Hydrocodone/Acetaminophen 1 tab PO Q8H PRN 10/08/17 12/24/17 [Hydrocodon-Acetaminoph 7.5-325] Furosemide [Lasix] 40 mg PO BID@,12/24/17 12/24/17 Previous Rx's Medication Instructions Recorded Budesonide-Formot 160-4.5 Mcg 2 puff INHALATION RT-BID puff 08/05/17 [Symbicort 160-4.5 Mcg Inhaler] Potassium Chloride ER [K-Dur 20] 20 meq PO DAILY #30 tab 10/08/17 Cephalexin [Keflex] 500 mg PO Q12HR 10 Days cap 12/24/17 Allergies Allergy/AdvReac Type Severity Reaction Status Date / Time erythromycin base Allergy Unknown Rash/Hives Verified 12/24/17 12:20 [Erythromycin Base] metoclopramide HCl Allergy Unknown Rash/Hives Verified 12/24/17 12:20 [From Reglan] Sulfa (Sulfonamide Allergy Unknown Rash/Hives Verified 12/24/17 12:20 Antibiotics) Review of Systems ROS Statement: Those systems with pertinent positive or pertinent negative responses have been documented in the HPI. ROS Other: All systems not noted in ROS Statement are negative. 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 CELLULITIS LLE. aortic valve pb. Last Myocardial Infarction Date:: unknown History of Any Multi-Drug Resistant Organisms: None Reported Past Surgical History: Back Surgery, Cholecystectomy, Heart Catheterization, Tubal Ligation Additional Past Surgical History / Comment(s): Bronchoscopies, cystoscopy , laminectomy total of 13 back sx including implanted pain stimulator, liver biopsy, cataract surgery , liver bx 2008 had ercp /stent in liver, skin ca removed. jonah carpal tunnel done ,heel spurs rt heel . thyroid bx(nodule) RING FINGER RIGHT HAND RIGHT Past Anesthesia/Blood Transfusion Reactions: Motion Sickness Additional Past Anesthesia/Blood Transfusion Reaction / Comment(s): Claustrophobia. No history of blood transfusions. Patient was adopted, No know family HX. Past Psychological History: Anxiety, Depression Smoking Status: Never smoker Past Alcohol Use History: None Reported Past Drug Use History: None Reported - Past Family History Father History Unknown: Yes Additional Family Medical History / Comment(s): was adopted Mother History Unknown: Yes Family Medical History: Cancer Additional Family Medical History / Comment(s): GRANDFATHER HAD COLON CA General Exam - General Exam Comments Initial Comments: General: The patient is awake and alert, in no distress, and does not appear acutely ill. Eye: Pupils are equal, round and reactive to light. Extra-ocular movements are intact. No nystagmus. There is normal conjunctiva bilaterally. No signs of icterus. Ears, nose, mouth and throat: There are moist mucous membranes and no oral lesions. Neck: The neck is supple, there is no tenderness or JVD. Musculoskeletal: Normal ROM, no tenderness. Sensation intact. Strength 5/5. Pulses equal bilaterally 2+. Neurological: A&O x 3. CN II-XII intact, There are no obvious motor or sensory deficits. Coordination appears grossly intact. Speech is normal. Skin: Area of redness to the right buttocks measures approximately 3-4 cm across. Surgical incision site seems to be healing well with no active drainage. There was yellow drainage on the gauze. Local tenderness on palpation. Psychiatric: Cooperative, appropriate mood & affect, normal judgment. Limitations: no limitations Course Vital Signs 12/24/17 11:37 Temperature 98.3 F Pulse Rate 98 Respiratory 20 Rate Blood Pressure 118/54 O2 Sat by Pulse 96 Oximetry Medical Decision Making - Medical Decision Making Patient reexamined at this time shows no signs of distress resting comfortably. Her labs been reviewed and shows negative white count. Metabolic lactic acid. Patient has no fever no tachycardia. Results were discussed with patient. Case was seen and discussed with attending physician Dr. Manning. Case was discussed with on-call neurosurgeon for Dr. Gregory to [facility] who states that patient may follow-up in the office tomorrow. States no need for transfer. Results and recommendations were discussed with the patient. She is in agreement that she would like to be discharged to follow up outpatient. Options were discussed about admission or transfer and she has declined. Patient will be started on Keflex. She is advised close follow-up returning if symptoms increase or worsen. - Lab Data Result diagrams: 12/24/17 12:09 12/24/17 12:09 Lab Results 12/24/17 12/24/17 12/24/17 Range/Units 12:09 12:09 12:09 WBC 8.7 (3.8-10.6) k/uL RBC 4.07 (3.80-5.40) m/uL Hgb 12.7 (11.4-16.0) gm/dL Hct 38.4 (34.0-46.0) % MCV 94.4 (80.0-100.0) fL MCH 31.1 (25.0-35.0) pg MCHC 33.0 (31.0-37.0) g/dL RDW 14.5 (11.5-15.5) % Plt Count 127 L (150-450) k/uL Neutrophils % 78 % Lymphocytes % 9 % Monocytes % 7 % Eosinophils % 2 % Basophils % 0 % Neutrophils # 6.8 (1.3-7.7) k/uL Lymphocytes # 0.8 L (1.0-4.8) k/uL Monocytes # 0.6 (0-1.0) k/uL Eosinophils # 0.2 (0-0.7) k/uL Basophils # 0.0 (0-0.2) k/uL PT (9.0-12.0) sec INR (<1.2) APTT (22.0-30.0) sec Sodium 139 (137-145) mmol/L Potassium 4.4 (3.5-5.1) mmol/L Chloride 105 (98-107) mmol/L Carbon Dioxide 27 (22-30) mmol/L Anion Gap 7 mmol/L BUN 21 H (7-17) mg/dL Creatinine 0.60 (0.52-1.04) mg/dL Est GFR (CKD-EPI)AfAm >90 (>60 ml/min/1.73 sqM) Est GFR (CKD-EPI)NonAf >90 (>60 ml/min/1.73 sqM) Glucose 243 H (74-99) mg/dL Plasma Lactic Acid Eddie 1.9 (0.7-2.0) mmol/L Calcium 8.9 (8.4-10.2) mg/dL Total Bilirubin 2.0 H (0.2-1.3) mg/dL AST 49 H (14-36) U/L ALT 75 H (9-52) U/L Alkaline Phosphatase 109 (38-126) U/L Total Protein 5.9 L (6.3-8.2) g/dL Albumin 3.0 L (3.5-5.0) g/dL Urine Color Urine Appearance (Clear) Urine pH (5.0-8.0) Ur Specific [place] (1.001-1.035) Urine Protein (Negative) Urine Glucose (UA) (Negative) Urine Ketones (Negative) Urine Blood (Negative) Urine Nitrite (Negative) Urine Bilirubin (Negative) Urine Urobilinogen (<2.0) mg/dL Ur Leukocyte Esterase (Negative) 12/24/17 12/24/17 Range/Units 12:09 12:40 WBC (3.8-10.6) k/uL RBC (3.80-5.40) m/uL Hgb (11.4-16.0) gm/dL Hct (34.0-46.0) % MCV (80.0-100.0) fL MCH (25.0-35.0) pg MCHC (31.0-37.0) g/dL RDW (11.5-15.5) % Plt Count (150-450) k/uL Neutrophils % % Lymphocytes % % Monocytes % % Eosinophils % % Basophils % % Neutrophils # (1.3-7.7) k/uL Lymphocytes # (1.0-4.8) k/uL Monocytes # (0-1.0) k/uL Eosinophils # (0-0.7) k/uL Basophils # (0-0.2) k/uL PT 11.5 (9.0-12.0) sec INR 1.2 H (<1.2) APTT 24.7 (22.0-30.0) sec Sodium (137-145) mmol/L Potassium (3.5-5.1) mmol/L Chloride (98-107) mmol/L Carbon Dioxide (22-30) mmol/L Anion Gap mmol/L BUN (7-17) mg/dL Creatinine (0.52-1.04) mg/dL Est GFR (CKD-EPI)AfAm (>60 ml/min/1.73 sqM) Est GFR (CKD-EPI)NonAf (>60 ml/min/1.73 sqM) Glucose (74-99) mg/dL Plasma Lactic Acid Eddie (0.7-2.0) mmol/L Calcium (8.4-10.2) mg/dL Total Bilirubin (0.2-1.3) mg/dL AST (14-36) U/L ALT (9-52) U/L Alkaline Phosphatase (38-126) U/L Total Protein (6.3-8.2) g/dL Albumin (3.5-5.0) g/dL Urine Color Yellow Urine Appearance Clear (Clear) Urine pH 5.5 (5.0-8.0) Ur Specific [place] 1.009 (1.001-1.035) Urine Protein Negative (Negative) Urine Glucose (UA) 3+ H (Negative) Urine Ketones Negative (Negative) Urine Blood Negative (Negative) Urine Nitrite Negative (Negative) Urine Bilirubin Negative (Negative) Urine Urobilinogen <2.0 (<2.0) mg/dL Ur Leukocyte Esterase Negative (Negative) Disposition Clinical Impression: Postoperative infection Disposition: HOME SELF-CARE Condition: Good Instructions: Surgical Site Infections (ED) Additional Instructions: Please use antibiotics as prescribed and follow-up with the neurosurgeon tomorrow. Please return here to emergency room if there is any fever, increase or worsening symptoms or any other concerns. Prescriptions: Cephalexin [Keflex] 500 mg PO Q12HR 10 Days cap Is patient prescribed a controlled substance at d/c from ED?: No Referrals: Harry Abel DO [Primary Care Provider] - 1-2 days Time of Disposition: 14:13
[2017-12-24 12:22] LABS: Basophils % (A) 0 %; Eosinophils # (A) 0.2 k/uL (0-0.7); Eosinophils % (A) 2 %; HCT 38.4 % (34.0-46.0); HGB 12.7 gm/dL (11.4-16.0); Lymphocytes # (A) 0.8 k/uL (1.0-4.8); Lymphocytes % (A) 9 %; MCH 31.1 pg (25.0-35.0); MCV 94.4 fL (80.0-100.0); Mean Platelet Volume 6.8; Monocytes # (A) 0.6 k/uL (0-1.0); Monocytes % (A) 7 %; Neutrophils # (A) 6.8 k/uL (1.3-7.7); Neutrophils % (A) 78 %; Platelet Count 127 k/uL (150-450); RBC 4.07 m/uL (3.80-5.40); RDW 14.5 % (11.5-15.5); WBC 8.7 k/uL (3.8-10.6)
[2017-12-24 12:28] LABS: ALT 75 U/L (9-52); AST 49 U/L (14-36); Alkaline Phosphatase 109 U/L (38-126); Anion Gap 7 mmol/L; Blood Urea Nitrogen 21 mg/dL (7-17); Calcium 8.9 mg/dL (8.4-10.2); Carbon Dioxide 27 mmol/L (22-30); Chloride 105 mmol/L (98-107); Glucose 243 mg/dL (74-99); Potassium 4.4 mmol/L (3.5-5.1); Sodium 139 mmol/L (137-145); Total Protein 5.9 g/dL (6.3-8.2)
[2017-12-24 12:32] LABS: INR 1.2 (<1.2); Partial Thromboplastin Time 24.7 sec (22.0-30.0); Prothrombin Time 11.5 sec (9.0-12.0)
[2017-12-24 12:46] LABS: Appearance,Urine Clear (Clear); Bilirubin,Urine Negative (Negative); Blood,Urine Negative (Negative); Color,Urine Yellow; Glucose,Urine (UA) 3+ (Negative); Ketones,Urine Negative (Negative); Leukocyte Esterase,Urine Negative (Negative); Nitrite,Urine Negative (Negative); PH, Urine 5.5 (5.0-8.0); Protein,Urine Negative (Negative); Specific Gravity,Urine 1.009 (1.001-1.035); Urobilinogen,Urine <2.0 mg/dL (<2.0)
[2017-12-24] MEDS ORDERED: CEPHALEXIN 500MG STARTER PACK 4 CAP BTL PO STA (14:13)
[2017-12-24 14:27] VITALS: BP 120/58; PULSE 78; RESP 18; TEMP 98.2
== END 2017-12-24 14:26 | disposition home or self-care (01) ==
LOC: EC 11:27
DX: T81.4XXA Infection following a procedure, initial encounter (principal); I25.10 Atherosclerotic heart disease of native coronary artery without angina pectoris; I11.0 Hypertensive heart disease with heart failure; I50.9 Heart failure, unspecified; J44.9 Chronic obstructive pulmonary disease, unspecified; E11.9 Type 2 diabetes mellitus without complications; K21.9 Gastro-esophageal reflux disease without esophagitis; H91.90 Unspecified hearing loss, unspecified ear; E78.5 Hyperlipidemia, unspecified; I25.2 Old myocardial infarction; M19.90 Unspecified osteoarthritis, unspecified site; E07.9 Disorder of thyroid, unspecified; D86.9 Sarcoidosis, unspecified; M81.0 Age-related osteoporosis without current pathological fracture; G25.81 Restless legs syndrome; F41.9 Anxiety disorder, unspecified; F32.9 Major depressive disorder, single episode, unspecified; Z86.73 Personal history of transient ischemic attack (TIA), and cerebral infarction without residual deficits; Z85.828 Personal history of other malignant neoplasm of skin; Z90.49 Acquired absence of other specified parts of digestive tract; Z98.51 Tubal ligation status; Z98.890 Other specified postprocedural states; Z79.4 Long term (current) use of insulin; Z79.52 Long term (current) use of systemic steroids; Z79.82 Long term (current) use of aspirin; Z79.899 Other long term (current) drug therapy; Z88.1 Allergy status to other antibiotic agents; Z88.2 Allergy status to sulfonamides; Z88.8 Allergy status to other drugs, medicaments and biological substances; Y83.8 Other surgical procedures as the cause of abnormal reaction of the patient, or of later complication, without mention of misadventure at the time of the procedure
CPT/HCPCS: 36415; 80053; 81003; 83605; 85025; 85610; 85730; 87040; 99283

== ENCOUNTER → 2018-04-08 | Outpatient (CLI) | payer MEDICARE, OTHER ==
[2018-04-08 11:57] VITALS: BP 119/64; PULSE 93; TEMP 98.4; BMI 38.6
--- NOTE | 2018-04-08 12:41 | P.HPOB ---
History of Present Illness H&P Date: 04/08/18 Chief Complaint: The patient is here for her routine gynecologic exam and mammogram. This is a 73-year-old with an LMP of 1998. The patient is without gynecologic complaints and denies any postmenopausal bleeding. Review of Systems The patient has lost about 11 pounds over the last year. She denies respiratory , cardiac and G.I. problems. She denies maltreatment or problems with falling. : she continues to have regular urinary leakage and sees Dr. Diaz, the urologist for this. 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 CELLULITIS LLE. aortic valve pb. Chronic back problems. 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 Last Myocardial Infarction Date:: unknown History of Any Multi-Drug Resistant Organisms: None Reported Past Surgical History: Back Surgery, Cholecystectomy, Heart Catheterization, Tubal Ligation Additional Past Surgical History / Comment(s): Bronchoscopies, cystoscopy , laminectomy total of 13 back sx including implanted pain stimulator, liver biopsy, cataract surgery , liver bx 2009 had ercp /stent in liver, skin ca removed. jonah carpal tunnel done ,heel spurs rt heel . thyroid bx(nodule) RING FINGER RIGHT HAND RIGHT. Colonoscopy 2009(2nd) Past Anesthesia/Blood Transfusion Reactions: Motion Sickness Additional Past Anesthesia/Blood Transfusion Reaction / Comment(s): Claustrophobia. No history of blood transfusions. Patient was adopted, No know family HX. Past Psychological History: Anxiety, Depression Additional Psychological History / Comment(s): Pt lives with and 1 dog in one level home 2 steps into home. Has cane/walker, shower chair, nebulizer at home. Currently no outside services. Smoking Status: Never smoker Past Alcohol Use History: None Reported Past Drug Use History: None Reported Additional History: She has been since 1965. She states she is applying for medical marijuana for chronic pain in 2018. - Past Family History Father History Unknown: Yes Additional Family Medical History / Comment(s): was adopted Mother History Unknown: Yes Family Medical History: Cancer Additional Family Medical History / Comment(s): GRANDFATHER HAD COLON CA. An aunt had breast cancer. Medications and Allergies Home Medications Medication Instructions Recorded Confirmed Type Multivit with Calcium,Iron,Min 1 tab PO QAM 08/21/13 04/08/18 History [Women's Daily Multivitamin] Magnesium Gluconate [Magonate] 500 mg PO QAM 04/18/15 04/08/18 History Aspirin 81 mg PO QAM 06/24/15 04/08/18 History Atorvastatin [Lipitor] 40 mg PO HS 06/24/15 04/08/18 History Cholecalciferol [Vitamin D3] 2,000 unit PO QAM 06/24/15 04/08/18 History predniSONE 40 mg PO DAILY 10/18/16 04/08/18 History Metoprolol Succinate [Toprol XL] 25 mg PO DAILY 02/10/17 04/08/18 History Insulin Aspart [NovoLOG See Protocol SQ ACHS 04/02/17 04/08/18 History (formulary)] Alendronate Sodium [Fosamax] 70 mg PO CURRY 06/14/17 04/08/18 History Insulin NPH Hum/Reg Insulin Hm 45 unit SQ AC-BID 07/30/17 04/08/18 History [NovoLIN 70-30 100 UNIT/ML VIAL] Budesonide-Formot 160-4.5 Mcg 2 puff INHALATION RT-BID puff 08/05/17 04/08/18 Rx [Symbicort 160-4.5 Mcg Inhaler] Albuterol Sulfate [Proventil Hfa] 1 - 2 puff INHALATION RT-Q6H PRN 08/16/17 History Cetirizine HCl [Zyrtec] 10 mg PO HS 10/08/17 04/08/18 History Furosemide [Lasix] 40 mg PO BID@09,16 12/24/17 04/08/18 History Allergies Allergy/AdvReac Type Severity Reaction Status Date / Time erythromycin base Allergy Unknown Rash/Hives Verified 04/08/18 11:27 [Erythromycin Base] metoclopramide HCl Allergy Unknown Rash/Hives Verified 04/08/18 11:27 [From Reglan] Sulfa (Sulfonamide Allergy Unknown Rash/Hives Verified 04/08/18 11:27 Antibiotics) Exam Vital Signs Temp Pulse BP 04/08/18 11:54 98.4 F 93 119/64 Intake and Output 04/07/18 04/08/18 04/08/18 22:59 06:59 14:59 Other: Weight 83.915 kg Height 4'10", weight 185 pounds, BMI 38.7. This is a well-developed well-nourished white female who is alert and oriented times 3 in no acute distress. She is very slow to ambulate secondary to chronic back problems. HEENT: Within normal limits. NECK: Supple without mass or thyromegaly. CHEST AND LUNGS: Clear to auscultation. HEART: Regular rate and rhythm. There is a grade 3 to 4 systolic murmur in the area of the aortic outlet. She states she is followed by a panel saw operator for this. BREASTS: Are without mass or discharge. AXILLARY EXAM: Negative for adenopathy. BACK: Negative for CVA tenderness. ABDOMEN: Soft, nontender, without palpable masses. PELVIC EXAM: Normal external genitalia with mild to moderate atrophy. Cervix and vagina appear normal with mild to moderate atrophy. There is no unusual discharge. There is no evidence of prolapse. The uterus is midposition, nongravid size and nontender. There are no palpable adnexal masses or tenderness. RECTAL EXAM: rectovaginal exam is negative for mass or tenderness and is negative for occult blood. EXTREMITIES: Nontender. IMPRESSION: 1. 73-year-old menopausal female with normal gynecologic exam. 2. Multiple medical problems. 3. Osteoporosis managed by her licensing registration examiner. PLAN: 1. Pap smear was performed. If this is negative, we will then have documentation for 3 negative Pap smear is within the last 10 years. If this is negative, we will consider discontinuing Pap smears. This was discussed with the patient. She understands that I still recommend a yearly well woman exam. 2. Self breast awareness was discussed with the patient. 3. [place]ing mammogram will be done today. 4. Osteoporosis management was discussed. I have stressed the importance of adequate calcium, vitamin D and regular exercise. Recommended amounts of calcium and vitamin D were also discussed. She will follow up with her licensing registration examiner for osteoporosis medication and bone density testing as she has done in the past. 5. She did receive a flu shot this fall. 6. She will return in one year.
--- NOTE | 2018-04-09 13:33 | MM ---
Reason for exam: screening (asymptomatic). Last mammogram was performed 1 year and 4 months ago. History: Patient is postmenopausal and history of other cancer. Family history of breast cancer in maternal aunt. Physical Findings: A clinical breast exam by your physician is recommended on an annual basis and results should be correlated with mammographic findings. MG 3D Screening Mammo W/Cad Bilateral CC and MLO view(s) were taken. Prior study comparison: December 18, 2016, bilateral MG 3d screening mammo w/cad. November 15, 2015, bilateral MG 3d screening mammo w/cad. The breast tissue is heterogeneously dense. This may lower the sensitivity of mammography. There is a upper inner quadrant right mass at middle depth stable back to 2014. Although the right CC nipple in profile view appears improved a retroareolar medial right asymmetry is seen for which additional views are recommended. ASSESSMENT: Incomplete: need additional imaging evaluation, BI-RAD 0 RECOMMENDATION: Special view mammogram of the right breast. If lesion persists on supplemental views, image directed ultrasound is recommended. [facility] will attempt to contact patient to return for supplemental views and ultrasound if indicated.
== END | disposition home or self-care (01) ==
LOC: WWCWWP 11:06
PROVIDERS: ATTEND Obstetrics & Gynecology
DX: Z12.31 Encounter for screening mammogram for malignant neoplasm of breast (principal)
CPT/HCPCS: 77063; 77067

== ENCOUNTER → 2018-05-05 | Outpatient (CLI) | payer MEDICARE, OTHER ==
--- NOTE | 2018-05-09 10:50 | MM ---
Reason for exam: additional evaluation requested from abnormal screening. Last mammogram was performed 1 month ago. History: Patient is postmenopausal and history of other cancer. Family history of breast cancer in maternal grandmother. Physical Findings: Nurse did not find any significant physical abnormalities on exam. MG 3D Work Up W/Cad RT Spot compression CC, spot compression MLO, and ML view(s) were taken of the right breast. Prior study comparison: April 08, 2018, bilateral MG 3d screening mammo w/cad. December 18, 2016, bilateral MG 3d screening mammo w/cad. The breast tissue is heterogeneously dense. This may lower the sensitivity of mammography. There are benign-appearing stable right breast calcifications in the lower inner quadrant. The retroareolar medial asymmetry resolves on additional views and appears similar to prior studies. The superior right asymmetry is unchanged back to 2013. These results were verbally communicated with the patient and result sheet given to the patient on 05/05/18. ASSESSMENT: Benign, BI-RAD 2 RECOMMENDATION: Return to routine screening mammogram schedule for both breasts.
== END | disposition home or self-care (01) ==
LOC: RADMAMWWP 08:48
PROVIDERS: ATTEND Obstetrics & Gynecology
DX: R92.8 Other abnormal and inconclusive findings on diagnostic imaging of breast (principal)
CPT/HCPCS: 77065; G0279; 77061

== ENCOUNTER → 2018-09-08 | Outpatient (CLI) | payer MEDICARE, OTHER ==
--- NOTE | 2018-09-08 09:04 | US ---
EXAMINATION TYPE: US liver DATE OF EXAM: 09/08/2018 COMPARISON: 10/02/2017 CLINICAL HISTORY: K74.60 Cirrhosis of liver. EXAM MEASUREMENTS: Liver Length: 11.9 cm Gallbladder Wall: see notes below CBD: 0.9 cm Right Kidney: 9.6 x 5.1 x 4.8 cm Morbidly obese patient technically difficult and limited study. Pancreas: Mostly obscured by bowel gas, prominent duct Liver: scattered tiny echogenic foci, increased attenuation Gallbladder: patient states surgically absent, seen on ultrasound 2017 and on today's ultrasound, [facility] study states was not seen in 60 minutes, anechoic structure with thick wall (0.8cm) se en on today's study, stone not seen today Evidence for sonographic Moody's sign: no CBD: wnl Right Kidney: wnl IMPRESSION: 1. The liver is heterogeneous which is nonspecific and be seen with hepatic steatosis, diffuse hepato cellular disease or hepatitis correlate clinically. 2. Anechoic structure in the gallbladder fossa. This should be correlated with the surgical history t o determine the gallbladder has been removed as the patient has reported. If the gallbladder still pr esent this may represent thick-walled gallbladder and acalculus cholecystitis would be an the differe ntial diagnosis. Correlate with the surgical history and CT scan as clinically warranted..
== END | disposition home or self-care (01) ==
LOC: RADUSWWP 08:10
PROVIDERS: ATTEND Internal Medicine Gastroenterology
DX: K76.0 Fatty (change of) liver, not elsewhere classified (principal); K74.60 Unspecified cirrhosis of liver
CPT/HCPCS: 76705

== ENCOUNTER → 2018-12-17 | Outpatient (CLI) | payer MEDICARE, OTHER ==
--- NOTE | 2018-12-17 09:21 | CT ---
EXAMINATION TYPE: CT cervical spine wo con DATE OF EXAM: 12/17/2018 COMPARISON: None HISTORY: 73-year-old female neck pain since ruptured disc surgery in August TECHNIQUE: Contiguous axial scanning of the cervical spine without IV contrast. Coronal and sagittal reconstructions performed. CT DLP: 582.8 mGycm Automated exposure control for dose reduction was used. FINDINGS: No craniocervical junction abnormality or predental space widening. No prevertebral soft tissue swell ing. There is calcification and soft tissue thickening posterior to the dens mildly narrowing the spinal c anal at the C1 level. Cystic change and irregularity within the dens just adjacent. Postsurgical change of C2 and C3 laminectomy with posterior fusion involving C2 and C3. Posterior aleksey ment bony ankylosis extends from C3 to C5 or C6 levels. Additional ACDF from C3 through C6 levels. Appears to be some bridging endplate osteophytes at C6-C7. Some posterior osteophytic ridging at C6-C7 contributing to mild to moderate spinal canal stenosis. Posterior disc osteophyte complex that C2-C3 extends into the ventral spinal canal but there is dorsa l decompression at this level. Hypertrophic facet arthropathy at C7-T1 and upper thoracic spine with trace grade 1 anterolisthesis a t C7-T1 and T1-T2. At C5-C6, bony changes result in mild left neural foraminal narrowing. At C6-C7, bony changes result in mild left neural foraminal narrowing. Metal hardware artifact. Degenerative changes at the sternoclavicular joints. IMPRESSION: 1. STATUS POST C2 AND C3 LAMINECTOMY WITH POSTERIOR FUSION HARDWARE AT THIS LEVEL WELL. 2. POSTERIOR ELEMENT BONY ANKYLOSIS EXTENDS FROM C3 DOWN TO C5 OR C6. 3. ADDITIONAL ACDF FROM C3 THROUGH C6. ADDITIONAL BRIDGING ENDPLATE CHANGE AT C6-C7. 4. HYPERTROPHIC FACET ARTHROPATHY BELOW THE FUSION AT C7-T1 AND T1-AND T2-WEIGHTED TRACE GRADE 1 ANTE ROLISTHESIS AT THESE LEVELS. 5. POSTERIOR OSTEOPHYTIC RIDGING AT C6-C7 CONTRIBUTING TO MILD TO MODERATE SPINAL CANAL STENOSIS. 6. POSTERIOR DISC OSTEOPHYTE COMPLEX AT C2-C3 ENCROACHES ONTO THE VENTRAL SPINAL CANAL BUT THERE IS D ORSAL DECOMPRESSION AT THIS LEVEL. 7. SOFT TISSUE THICKENING AND CALCIFICATION POSTERIOR TO THE DENS MAY REPRESENT DEGENERATIVE LIGAMENT OUS THICKENING. HOWEVER, GIVEN SOME CYSTIC CHANGE AROUND THE DENS, CORRELATE FOR THE POSSIBILITY OF A PANNUS RELATING TO RA OR CPPD. THIS CONTRIBUTES TO MILD SPINAL CANAL STENOSIS AT THE C1 LEVEL.
== END | disposition home or self-care (01) ==
LOC: RADCTMAIN 07:54
DX: M48.02 Spinal stenosis, cervical region (principal); M46.92 Unspecified inflammatory spondylopathy, cervical region; Z98.1 Arthrodesis status
CPT/HCPCS: 72125

== ENCOUNTER → 2019-01-22 | Outpatient (CLI) | payer MEDICARE, OTHER | LOC: CPPFTMAIN 10:38 | PROVIDERS: ATTEND Internal Medicine Critical Care Medicine | DX: J45.909 Unspecified asthma, uncomplicated (principal) | CPT/HCPCS: 94060 ==

== ENCOUNTER → 2019-02-26 | Outpatient (CLI) | payer MEDICARE, OTHER ==
--- NOTE | 2019-02-26 13:41 | XR ---
EXAMINATION TYPE: XR cervical spine comp DATE OF EXAM: 02/26/2019 TECHNIQUE: Frontal, lateral, oblique, swimmers, and open mouth view of the cervical spine are obtaine d. HISTORY: M47.812 spondylosis prior neck surgery. COMPARISON: Cervical spine x-ray October 15, 2018. FINDINGS: Redemonstration of posterior fusion hardware C2-C3 level. Redemonstration of anterior fusio n plate C3-C6 level with artificial disc material. Alignment is stable. Suboptimal evaluation of lowe r cervical levels despite attempted swimmer's view due to osseous overlap. Alignment satisfactory and stable. Oblique images are within normal limits. Overlying soft tissue is unremarkable. IMPRESSION: As above.
== END | disposition home or self-care (01) ==
LOC: RADXRMAIN 11:12
DX: M47.812 Spondylosis without myelopathy or radiculopathy, cervical region (principal); Z98.1 Arthrodesis status
CPT/HCPCS: 72050

== ENCOUNTER 2019-04-08 18:29 | Observation (INO) | payer MEDICARE, OTHER ==
[2019-04-08] MEDS ORDERED: SODIUM CHLORIDE 0.9% 1,000 ML IV STA (20:04)
[2019-04-08] MEDS ORDERED: ONDANSETRON 4 MG/2 ML VIAL IVP STA (20:04)
--- NOTE | 2019-04-08 20:19 | ED ---
Female Urogenital HPI - General Chief complaint: Urogenital Stated complaint: Kidney infection Time Seen by Provider: 04/08/19 19:45 Source: patient Mode of arrival: wheelchair Limitations: no limitations - History of Present Illness Initial comments: patient is a 74-year-old female, With multiple comorbidities including diabetes, heart failure, liver disease, COPD, presenting to the emergency Department with complaints of a UTI that was diagnosed today. Patient states she went to Dr. Abel's office today and was seen by the urgent care for possible UTI. Patient states last night she was having hours of urinary incontinence. Patient states she's had UTIs in the past and this is her normal symptoms. Patient states her doctor's office said that she does have a UTI and a culture was sent. Patient was given Rocephin shot in the office and also given prescription for antibiotic. Patient is also having nausea and vomiting and also feels i ncreasingly weak. They suggested that patient go to the ER for further evaluation and possible admission.patient denies fever, chills, diarrhea, belly pain. Patient does admit to lower back pain but this is also chronic in nature. Patient has no other complaints at this time. Upon arrival to the ER, her vital signs are stable. - Related Data Home Medications Medication Instructions Recorded Confirmed Multivit with Calcium,Iron,Min 1 tab PO QAM 08/21/13 04/08/18 [Women's Daily Multivitamin] Magnesium Gluconate [Magonate] 500 mg PO QAM 04/18/15 04/08/18 Aspirin 81 mg PO QAM 06/24/15 04/08/18 Atorvastatin [Lipitor] 40 mg PO HS 06/24/15 04/08/18 Cholecalciferol [Vitamin D3 (25 2,000 unit PO QAM 06/24/15 04/08/18 Mcg = 1000 Iu)] predniSONE 40 mg PO DAILY 10/18/16 04/08/18 Metoprolol Succinate [Toprol XL] 25 mg PO DAILY 02/10/17 04/08/18 INSULIN ASPART (NovoLOG) [NovoLOG See Protocol SQ ACHS 04/02/17 04/08/18 (formulary)] Alendronate Sodium [Fosamax] 70 mg PO CURRY 06/14/17 04/08/18 Insulin NPH Hum/Reg Insulin Hm 45 unit SQ AC-BID 07/30/17 04/08/18 [NovoLIN 70-30 100 UNIT/ML VIAL] Albuterol Sulfate [Proventil Hfa] 1 - 2 puff INHALATION RT-Q6H PRN 08/16/17 04/08/18 Cetirizine HCl [Zyrtec] 10 mg PO HS 10/08/17 04/08/18 Furosemide [Lasix] 40 mg PO BID@09,16 12/24/17 04/08/18 Previous Rx's Medication Instructions Recorded Budesonide-Formot 160-4.5 Mcg 2 puff INHALATION RT-BID puff 08/05/17 [Symbicort 160-4.5 Mcg Inhaler] Allergies Allergy/AdvReac Type Severity Reaction Status Date / Time erythromycin base Allergy Unknown Rash/Hives Verified 04/08/18 11:27 [Erythromycin Base] metoclopramide HCl Allergy Unknown Rash/Hives Verified 04/08/18 11:27 [From Reglan] Sulfa (Sulfonamide Allergy Unknown Rash/Hives Verified 04/08/18 11:27 Antibiotics) Review of Systems ROS Statement: Those systems with pertinent positive or pertinent negative responses have been documented in the HPI. ROS Other: All systems not noted in ROS Statement are negative. 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 CELLULITIS LLE. aortic valve pb. Chronic back problems. 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 Last Myocardial Infarction Date:: unknown History of Any Multi-Drug Resistant Organisms: None Reported Past Surgical History: Back Surgery, Cholecystectomy, Heart Catheterization, Tubal Ligation Additional Past Surgical History / Comment(s): Bronchoscopies, cystoscopy , laminectomy total of 13 back sx including implanted pain stimulator, liver biopsy, cataract surgery , liver bx 2009 had ercp /stent in liver, skin ca removed. jonah carpal tunnel done ,heel spurs rt heel . thyroid bx(nodule) RING FINGER RIGHT HAND RIGHT. Colonoscopy 2009(2nd) Past Anesthesia/Blood Transfusion Reactions: Motion Sickness Additional Past Anesthesia/Blood Transfusion Reaction / Comment(s): Claustrophobia. No history of blood transfusions. Patient was adopted, No know family HX. Past Psychological History: Anxiety, Depression Smoking Status: Never smoker Past Alcohol Use History: None Reported Past Drug Use History: None Reported - Past Family History Father History Unknown: Yes Additional Family Medical History / Comment(s): was adopted Mother History Unknown: Yes Family Medical History: Cancer Additional Family Medical History / Comment(s): GRANDFATHER HAD COLON CA. An aunt had breast cancer. General Exam - General Exam Comments Initial Comments: GENERAL: Well-appearing, well-nourished and in no acute distress. HEAD: Atraumatic, normocephalic. EYES: Pupils equal round and reactive to light, extraocular movements intact, sclera anicteric, conjunctiva are normal. ENT: TMs normal, nares patent, oropharynx clear without exudates. Moist mucous membranes. NECK: Normal range of motion, supple without lymphadenopathy or JVD. LUNGS: Breath sounds clear to auscultation bilaterally and equal. No wheezes rales or rhonchi. HEART: Regular rate and rhythm without murmurs, rubs or gallops. ABDOMEN: Soft, nontender, normoactive bowel sounds. No guarding, no rebound. No masses appreciated. : Deferred EXTREMITIES: Normal range of motion, no pitting or edema. No clubbing or cyanosis. mild pain on palpation of bilateral lower back. NEUROLOGICAL: Normal speech, normal gait. PSYCH: Normal mood, normal affect. SKIN: Warm, Dry, normal turgor, no rashes or lesions noted. Limitations: no limitations Course Vital Signs 04/08/19 04/08/19 04/08/19 18:38 19:41 22:55 Temperature 98.4 F 98.5 F 98.7 F Pulse Rate 98 102 H 99 Respiratory 19 19 15 Rate Blood Pressure 160/75 148/69 133/65 O2 Sat by Pulse 99 95 94 L Oximetry Medical Decision Making - Medical Decision Making patient is a 74-year-old female presenting with UTI-type symptoms as well as increase in the back pain. Patient was sent by her doctor. Vital signs are stable. Labs show slight leukocytosis at 12.4, glucose 322, BUN is elevated at 30, UA shows 4+ glucose, 2+ ketones, 38 wbc's. Urine culture is pending. Given patient's symptoms patient will be admitted for UTI, dehydration, hyperglycemia. Patient is agreeable with this plan of care. Blood cultures are pending. Patient will be started on Rocephin. Case discussed with Dr. Gómez. - Lab Data Result diagrams: 04/08/19 20:54 04/08/19 20:54 Lab Results 04/08/19 04/08/19 04/08/19 Range/Units 20:54 20:54 20:54 WBC 12.4 H (3.8-10.6) k/uL RBC 4.52 (3.80-5.40) m/uL Hgb 14.4 (11.4-16.0) gm/dL Hct 43.0 (34.0-46.0) % MCV 95.2 (80.0-100.0) fL MCH 31.9 (25.0-35.0) pg MCHC 33.5 (31.0-37.0) g/dL RDW 13.7 (11.5-15.5) % Plt Count 113 L (150-450) k/uL Neutrophils % 87 % Lymphocytes % 6 % Monocytes % 5 % Eosinophils % 1 % Basophils % 0 % Neutrophils # 10.9 H (1.3-7.7) k/uL Lymphocytes # 0.7 L (1.0-4.8) k/uL Monocytes # 0.7 (0-1.0) k/uL Eosinophils # 0.1 (0-0.7) k/uL Basophils # 0.0 (0-0.2) k/uL Sodium 137 (137-145) mmol/L Potassium 4.0 (3.5-5.1) mmol/L Chloride 105 (98-107) mmol/L Carbon Dioxide 25 (22-30) mmol/L Anion Gap 7 mmol/L BUN 30 H (7-17) mg/dL Creatinine 0.53 (0.52-1.04) mg/dL Est GFR (CKD-EPI)AfAm >90 (>60 ml/min/1.73 sqM) Est GFR (CKD-EPI)NonAf >90 (>60 ml/min/1.73 sqM) Glucose 322 H (74-99) mg/dL POC Glucose (mg/dL) (75-99) mg/dL POC Glu Wall Attendant ID Plasma Lactic Acid Eddie 1.8 (0.7-2.0) mmol/L Calcium 9.1 (8.4-10.2) mg/dL Total Bilirubin 1.1 (0.2-1.3) mg/dL AST 40 H (14-36) U/L ALT 38 H (4-34) U/L Alkaline Phosphatase 183 H (38-126) U/L Total Protein 6.4 (6.3-8.2) g/dL Albumin 3.7 (3.5-5.0) g/dL Urine Color Urine Appearance (Clear) Urine pH (5.0-8.0) Ur Specific [place] (1.001-1.035) Urine Protein (Negative) Urine Glucose (UA) (Negative) Urine Ketones (Negative) Urine Blood (Negative) Urine Nitrite (Negative) Urine Bilirubin (Negative) Urine Urobilinogen (<2.0) mg/dL Ur Leukocyte Esterase (Negative) Urine RBC (0-5) /hpf Urine WBC (0-5) /hpf Ur Squamous Epith Cells (0-4) /hpf Urine Mucus (None) /hpf 04/08/19 04/08/19 Range/Units 22:04 23:01 WBC (3.8-10.6) k/uL RBC (3.80-5.40) m/uL Hgb (11.4-16.0) gm/dL Hct (34.0-46.0) % MCV (80.0-100.0) fL MCH (25.0-35.0) pg MCHC (31.0-37.0) g/dL RDW (11.5-15.5) % Plt Count (150-450) k/uL Neutrophils % % Lymphocytes % % Monocytes % % Eosinophils % % Basophils % % Neutrophils # (1.3-7.7) k/uL Lymphocytes # (1.0-4.8) k/uL Monocytes # (0-1.0) k/uL Eosinophils # (0-0.7) k/uL Basophils # (0-0.2) k/uL Sodium (137-145) mmol/L Potassium (3.5-5.1) mmol/L Chloride (98-107) mmol/L Carbon Dioxide (22-30) mmol/L Anion Gap mmol/L BUN (7-17) mg/dL Creatinine (0.52-1.04) mg/dL Est GFR (CKD-EPI)AfAm (>60 ml/min/1.73 sqM) Est GFR (CKD-EPI)NonAf (>60 ml/min/1.73 sqM) Glucose (74-99) mg/dL POC Glucose (mg/dL) 293 H (75-99) mg/dL POC Glu Wall Attendant ID Colton Antony Plasma Lactic Acid Eddie (0.7-2.0) mmol/L Calcium (8.4-10.2) mg/dL Total Bilirubin (0.2-1.3) mg/dL AST (14-36) U/L ALT (4-34) U/L Alkaline Phosphatase (38-126) U/L Total Protein (6.3-8.2) g/dL Albumin (3.5-5.0) g/dL Urine Color Yellow Urine Appearance Clear (Clear) Urine pH 5.0 (5.0-8.0) Ur Specific [place] 1.037 H (1.001-1.035) Urine Protein Negative (Negative) Urine Glucose (UA) 4+ H (Negative) Urine Ketones 2+ H (Negative) Urine Blood Small H (Negative) Urine Nitrite Negative (Negative) Urine Bilirubin Negative (Negative) Urine Urobilinogen <2.0 (<2.0) mg/dL Ur Leukocyte Esterase Small H (Negative) Urine RBC 7 H (0-5) /hpf Urine WBC 38 H (0-5) /hpf Ur Squamous Epith Cells 1 (0-4) /hpf Urine Mucus Rare H (None) /hpf Disposition Clinical Impression: UTI (urinary tract infection), Dehydration, Hyperglycemia Disposition: ADMITTED IP TO THIS HOSP Condition: Stable Is patient prescribed a controlled substance at d/c from ED?: No Referrals: Harry Abel DO [Primary Care Provider] - 1-2 days Decision Date: 04/08/19 Decision Time: 23:27
[2019-04-08 21:08] LABS: Basophils % (A) 0 %; Eosinophils # (A) 0.1 k/uL (0-0.7); Eosinophils % (A) 1 %; HGB 14.4 gm/dL (11.4-16.0); Lymphocytes # (A) 0.7 k/uL (1.0-4.8); Lymphocytes % (A) 6 %; MCH 31.9 pg (25.0-35.0); MCHC 33.5 g/dL (31.0-37.0); MCV 95.2 fL (80.0-100.0); Mean Platelet Volume 8.1; Monocytes # (A) 0.7 k/uL (0-1.0); Monocytes % (A) 5 %; Neutrophils # (A) 10.9 k/uL (1.3-7.7); Neutrophils % (A) 87 %; Platelet Count 113 k/uL (150-450); RBC 4.52 m/uL (3.80-5.40); RDW 13.7 % (11.5-15.5); WBC 12.4 k/uL (3.8-10.6)
[2019-04-08 21:16] LABS: ALT 38 U/L (4-34); AST 40 U/L (14-36); African American GFR (CKD) >90 (>60 ml/min/1.73 sqM); Albumin 3.7 g/dL (3.5-5.0); Alkaline Phosphatase 183 U/L (38-126); Anion Gap 7 mmol/L; Blood Urea Nitrogen 30 mg/dL (7-17); Calcium 9.1 mg/dL (8.4-10.2); Carbon Dioxide 25 mmol/L (22-30); Chloride 105 mmol/L (98-107); Glucose 322 mg/dL (74-99); Non-African American GFR(CKD) >90 (>60 ml/min/1.73 sqM); Sodium 137 mmol/L (137-145); Total Bilirubin 1.1 mg/dL (0.2-1.3); Total Protein 6.4 g/dL (6.3-8.2)
[2019-04-08 22:42] LABS: Appearance,Urine Clear (Clear); Bilirubin,Urine Negative (Negative); Blood,Urine Small (Negative); Color,Urine Yellow; Glucose,Urine (UA) 4+ (Negative); Leukocyte Esterase,Urine Small (Negative); Mucus,Urine Rare /hpf; Nitrite,Urine Negative (Negative); Protein,Urine Negative (Negative); RBC,Urine 7 /hpf (0-5); Specific Gravity,Urine 1.037 (1.001-1.035); Squamous Epithelial Cell,Urine 1 /hpf (0-4); Urobilinogen,Urine <2.0 mg/dL (<2.0); WBC,Urine 38 /hpf (0-5)
[2019-04-08 22:44] LABS: Ketones,Urine 2+ (Negative)
[2019-04-08 23:02] LABS: Glucose,Whole Blood 293 mg/dL (75-99)
[2019-04-08] MEDS ORDERED: ONDANSETRON 4 MG/2 ML VIAL IVP PRN (23:22)
[2019-04-08] MEDS ORDERED: traMADol 50 MG TAB PO PRN (23:22)
[2019-04-08] MEDS ORDERED: ACETAMINOPHEN TAB 325 MG TAB PO PRN (23:22)
[2019-04-08] MEDS ORDERED: MORPHINE SULFATE 4 MG/ML SYRINGE IV PRN (23:22)
[2019-04-08] MEDS ORDERED: NALOXONE 0.4 MG/ML 1 ML VIAL IV PRN (23:22)
[2019-04-08] MEDS ORDERED: cefTRIAXone IN SWFI 1,000 MG/10 ML SYRINGE IVP STA (23:24)
[2019-04-08] MEDS: SODIUM CHLORIDE 0.9% 1,000 ML IV SCH (23:47)
[2019-04-09] MEDS ORDERED: SPIRONOLACTONE 25 MG TAB PO PRN (08:24)
[2019-04-09] MEDS ORDERED: FUROSEMIDE 40 MG TAB PO PRN ×2 (08:24→18:13)
[2019-04-09] MEDS ORDERED: traMADol 50 MG TAB PO PRN (08:24)
[2019-04-09 08:29] LABS: Glucose,Whole Blood 271 mg/dL (75-99)
[2019-04-09] MEDS: METOPROLOL SUCCINATE (ER) 25 MG TAB.ER.24H PO SCH (09:00)
[2019-04-09] MEDS: metFORMIN 500 MG TAB PO SCH ×2 (09:00→21:39)
[2019-04-09] MEDS: ASPIRIN 81 MG PO SCH (09:00)
[2019-04-09] MEDS: MULTIVITAMINS, THERA 1 EACH TAB PO SCH (09:00)
[2019-04-09] MEDS: INSULIN ASPART (NovoLOG) 100 UNIT/ML VIAL SQ SCH ×3 (09:01→21:38)
[2019-04-09] MEDS: CHOLECALCIFEROL 1,000 UNIT TAB PO SCH (09:11)
[2019-04-09] MEDS: predniSONE 5 MG TAB PO SCH (10:09)
[2019-04-09] MEDS: PRAMIPEXOLE 0.5 MG TAB PO SCH (10:10)
[2019-04-09 12:27] LABS: Glucose,Whole Blood 322 mg/dL (75-99)
[2019-04-09] MEDS: INSULIN REGULAR 100 UNIT/ML VIAL SQ SCH ×2 (12:38→17:21)
[2019-04-09 16:18] VITALS: BMI 41.3
[2019-04-09] MEDS: SODIUM CHLORIDE 0.9% 1,000 ML IV SCH (16:29)
[2019-04-09 17:00] LABS: Glucose,Whole Blood 260 mg/dL (75-99)
--- NOTE | 2019-04-09 20:18 | P.HPIM ---
History of Present Illness H&P Date: 04/09/19 Chief Complaint: urinary frequency History of presenting complaint: This is a pleasant 74-year-old patient of Dr. Abel. Chronic stable medical conditions include asthma, coronary artery disease, COPD, stroke, diabetes, GERD, hyperlipidemia, hypertension, hypothyroid, sarcoidosis, tracheobronchomalacia, Sjogren syndrome, chronic inflammation treated demyelinating polyneuropathy, transfers colitis, nephrolithiasis, osteoporosis, sciatica, specific syndrome, anemia, diabetes, hypertension, hyperlipidemia, hypothyroid, restless leg syndrome, CHF with diastolic dysfunction noted aortic stenosis and chronic lower extremity cellulitis. Patient presents with increased frequency of urination unable to hold urine. Slight dysuria. No fever no chills decreased appetite and nausea vomiting tired rundown. Review of systems: GEN.: Tired EYES: None HEENT: None NECK: None RESPIRATORY: None CARDIOVASCULAR: None GASTROINTESTINAL: None GENITOURINARY: Urinary frequency] MUSCULOSKELETAL: Joint pains LYMPHATICS: None HEMATOLOGICAL: None PSYCHIATRY: None NEUROLOGICAL: None DERMATOLOGICAL: Lower extremity redness Past medical history to include: Coronary artery disease, COPD, stroke, diabetes mellitus type 2, GERD hyperlipidemia, hypertension, Ary arthritis, [place], hypothyroid, sarcoidosis, tracheobronchomalacia, Sjogren syndrome, CIDP, transfers colitis, nonalcoholic steatohepatitis, nephrolithiasis, osteoporosis, restless leg syndrome, anemia, diverticulosis, doubt is mellitus type II, hypertension, hyperlipidemia, hypothyroid, restless leg syndrome, CHF with diastolic dysfunction, moderate degree to aortic stenosis Social history: , does not smoke or drink alcohol. Does have a walker and a cane Family history: patient is adopted Physical examination: VITAL SIGNS: 98.4, 98, 19, 148/69, 99% room air GENERAL: BMI 41.4, laying in bed awake tired. EYES: Pupils equal. Conjunctiva normal. HEENT: External appearance of nose and ears normal, oral cavity grossly normal. NECK: JVD not raised; masses not palpable. HEART: First and second heart sounds are normal; no edema. LUNGS: Respiratory rate normal; clear to auscultation. ABDOMEN: Soft, nontender, liver spleen not palpable, no masses palpable. PSYCH: Alert and oriented x3; mood and affect normal. NEUROLOGICAL: Cranial nerves grossly intact; no facial asymmetry, power and sensation grossly intact. LYMPHATICS: No lymph nodes palpable in the axilla and neck MUSCULOSKELETAL: Evidence of OA INVESTIGATIONS, reviewed in the clinical context:: White count 12.4 hemoglobin 40.4 platelets 113 potassium 4 creatinine 0.53 UA positive for leukoesterase WBC Assessment: -Acute UTI and cystitis -Coronary artery disease -Asthma -Diabetes mellitus type 2 -GERD -Hyperlipidemia -Essential hypertension -Primary osteoarthritis -Sjogren syndrome -Nonalcoholic steatohepatitis -Nephrolithiasis -Restless leg syndrome -Diverticulosis -Restless leg syndrome -Moderate aortic stenosis Plan: Home medications resumed. Accu-Cheks will be followed. Patient on IV ceftriaxone. Care was discussed with the patient. Questions were answered. Patient's appetite is picking up. Past Medical History Past Medical History: Asthma, Coronary Artery Disease (CAD), Cancer, Heart Failure, COPD, CVA/TIA, Diabetes Mellitus, GERD/Reflux, Hearing Disorder / Deafness, Hyperlipidemia, Hypertension, Liver Disease, Myocardial Infarction ([place]), Osteoarthritis (OA), Pneumonia, Respiratory Disorder, Skin Disorder, Thyroid Disorder Additional Past Medical History / Comment(s): Sarcoidosis, sjogrens syndrome, 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, non- alcoholic steatohepatitis - HAS STENT, nephrolithiasis, ost eoporosis,sciatica,RLS anemia,hx of TIA 2,thyroid nodule, diverticulosis, skin CA, tracheobronchomalacia, restless leg syndrome, moderate degree of aortic stenosis. CELLULITIS LLE. aortic valve pb. Chronic back problems. 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 Last Myocardial Infarction Date:: unknown History of Any Multi-Drug Resistant Organisms: None Reported Past Surgical History: Back Surgery, Cholecystectomy, Heart Catheterization, Tubal Ligation Additional Past Surgical History / Comment(s): Bronchoscopies, cystoscopy , laminectomy total of 16 back sx including implanted pain stimulator, liver biopsy, cataract surgery , liver bx 2009 had ercp /stent in liver, skin ca daren emmanuel. jonah carpal tunnel done ,heel spurs rt heel . thyroid bx(nodule) RING FINGER RIGHT HAND RIGHT. Colonoscopy 2009(2nd) Past Anesthesia/Blood Transfusion Reactions: Motion Sickness Additional Past Anesthesia/Blood Transfusion Reaction / Comment(s): Claustrophobia. No history of blood transfusions. Patient was adopted, No know family HX. Past Psychological History: Anxiety, Depression Additional Psychological History / Comment(s): Pt lives with and 1 dog in one level home 2 steps into home. Has cane/walker, shower chair, nebulizer at home. Currently no outside services. Smoking Status: Never smoker Past Alcohol Use History: None Reported Past Drug Use History: None Reported - Past Family History Father History Unknown: Yes Additional Family Medical History / Comment(s): was adopted Mother History Unknown: Yes Family Medical History: Cancer Additional Family Medical History / Comment(s): GRANDFATHER HAD COLON CA. An aunt had breast cancer. Medications and Allergies Home Medications Medication Instructions Recorded Confirmed Type Aspirin 81 mg PO DAILY 06/24/15 04/09/19 History Atorvastatin [Lipitor] 40 mg PO HS 06/24/15 04/09/19 History Cholecalciferol [Vitamin D3 (25 5,000 unit PO QAM 06/24/15 04/09/19 History Mcg = 1000 Iu)] predniSONE 5 mg PO DAILY 10/18/16 04/09/19 History Metoprolol Succinate [Toprol XL] 25 mg PO DAILY 02/10/17 04/09/19 History Alendronate Sodium [Fosamax] 70 mg PO CURRY 06/14/17 04/09/19 History Budesonide-Formot 160-4.5 Mcg 2 puff INHALATION RT-BID puff 08/05/17 04/09/19 Rx [Symbicort 160-4.5 Mcg Inhaler] Albuterol Sulfate [Proventil Hfa] 1 - 2 puff INHALATION RT-Q6H PRN 08/16/17 04/09/19 History Cetirizine HCl [Zyrtec] 10 mg PO HS 10/08/17 04/09/19 History Furosemide [Lasix] 40 mg PO BID PRN 12/24/17 04/09/19 History Cefuroxime Axetil [Ceftin] 500 mg PO BID 04/09/19 04/09/19 History Gabapentin [Neurontin] 300 mg PO HS 04/09/19 04/09/19 History Insulin Regular, Human [NovoLIN R] 10 unit SQ HS 04/09/19 04/09/19 History Insulin Regular, Human [NovoLIN R] 12 unit SQ AC-BID 04/09/19 04/09/19 History Insulin Regular, Human [NovoLIN R] 20 unit SQ AC-LUNCH 04/09/19 04/09/19 History Ipratropium Nebulized [Atrovent 0.5 mg INHALATION RT-QID PRN 04/09/19 04/09/19 History Nebulized 0.2 MG/ML] Magnesium Citrate 1,000 mg PO HS 04/09/19 04/09/19 History Multivitamin/Iron/Folic Acid 1 tab PO DAILY 04/09/19 04/09/19 History [Centrum Adults Tablet] Pramipexole Di-HCl [Mirapex] 1.5 mg PO BID@0700,1200 04/09/19 04/09/19 History Spironolactone [Aldactone] 50 mg PO DAILY PRN 04/09/19 04/09/19 History metFORMIN HCL 1,000 mg PO BID 04/09/19 04/09/19 History traMADol HCL [Ultram] 50 mg PO Q8H PRN 04/09/19 04/09/19 History Allergies Allergy/AdvReac Type Severity Reaction Status Date / Time erythromycin base Allergy Unknown Rash/Hives Verified 04/09/19 07:28 [Erythromycin Base] metoclopramide HCl Allergy Unknown Rash/Hives Verified 04/09/19 07:28 [From Reglan] Sulfa (Sulfonamide Allergy Unknown Rash/Hives Verified 04/09/19 07:28 Antibiotics) Physical Exam Vitals: Vital Signs Temp Pulse Pulse Resp BP BP Pulse Ox 04/09/19 08:19 98.0 F 92 16 119/70 96 04/09/19 08:00 17 04/09/19 05:15 98.5 F 89 18 152/86 97 04/09/19 01:20 95 16 128/63 95 04/08/19 22:55 98.7 F 99 15 133/65 94 L 04/08/19 19:41 98.5 F 102 H 19 148/69 95 04/08/19 18:38 98.4 F 98 19 160/75 99 Intake and Output 04/08/19 04/09/19 04/09/19 22:59 06:59 14:59 Intake Total 20 Balance 20 Intake: IV 20 Invasive Line 1 20 Other: Voiding Method Toilet Toilet Diaper Diaper Incontinent Incontinent Weight 89.811 kg Results CBC & Chem 7: 04/08/19 20:54 04/08/19 20:54 Labs: Abnormal Lab Results - Last 24 Hours (Table) 04/08/19 04/08/19 04/08/19 Range/Units 20:54 20:54 22:04 WBC 12.4 H (3.8-10.6) k/uL Plt Count 113 L (150-450) k/uL Neutrophils # 10.9 H (1.3-7.7) k/uL Lymphocytes # 0.7 L (1.0-4.8) k/uL BUN 30 H (7-17) mg/dL Glucose 322 H (74-99) mg/dL POC Glucose (mg/dL) (75-99) mg/dL AST 40 H (14-36) U/L ALT 38 H (4-34) U/L Alkaline Phosphatase 183 H (38-126) U/L Ur Specific [place] 1.037 H (1.001-1.035) Urine Glucose (UA) 4+ H (Negative) Urine Ketones 2+ H (Negative) Urine Blood Small H (Negative) Ur Leukocyte Esterase Small H (Negative) Urine RBC 7 H (0-5) /hpf Urine WBC 38 H (0-5) /hpf Urine Mucus Rare H (None) /hpf 04/08/19 04/09/19 Range/Units 23:01 08:17 WBC (3.8-10.6) k/uL Plt Count (150-450) k/uL Neutrophils # (1.3-7.7) k/uL Lymphocytes # (1.0-4.8) k/uL BUN (7-17) mg/dL Glucose (74-99) mg/dL POC Glucose (mg/dL) 293 H 271 H (75-99) mg/dL AST (14-36) U/L ALT (4-34) U/L Alkaline Phosphatase (38-126) U/L Ur Specific [place] (1.001-1.035) Urine Glucose (UA) (Negative) Urine Ketones (Negative) Urine Blood (Negative) Ur Leukocyte Esterase (Negative) Urine RBC (0-5) /hpf Urine WBC (0-5) /hpf Urine Mucus (None) /hpf Microbiology - Last 24 Hours (Table) 04/08/19 22:04 Urine Culture - Preliminary Urine,Voided Thrombosis Risk Factor Assmnt - Choose All That Apply Each Risk Factor Represents 2 Points: Age 61-74 years Thrombosis Risk Factor Assessment Total Risk Factor Score: 2 Thrombosis Risk Factor Assessment Level: Low Risk
[2019-04-09 20:38] LABS: Glucose,Whole Blood 330 mg/dL (75-99)
[2019-04-09] MEDS ORDERED: LORATADINE 10 MG TAB PO SCH (21:00)
[2019-04-09] MEDS ORDERED: GABAPENTIN 300 MG CAP PO SCH (21:00)
[2019-04-09] MEDS ORDERED: MAGNESIUM OXIDE 400 MG TAB PO SCH (21:00)
[2019-04-09] MEDS ORDERED: ATORVASTATIN 40 MG TAB PO SCH (21:00)
[2019-04-09] MEDS ORDERED: INSULIN REGULAR 100 UNIT/ML VIAL SQ SCH (21:00)
[2019-04-09] MEDS: SYMBICORT 160-4.5 MCG INHALER INHALATION SCH (21:39)
--- NOTE | 2019-04-09 22:53 | P.CONS ---
History of Present Illness - Reason for Consult Consult date: 04/09/19 bilateral lower extremity cellulitis Requesting physician: Ronan Webster - Chief Complaint urinary frequency and vomiting x 1 day - History of Present Illness Patient is a 74-year-old female presenting to the ER at [facility] with chief complaints of nausea vomiting urine frequency and some incontinence the patient symptom started the day before presented to the hospital and apparently the patient was evaluated at her primary care physician office with the patient was diagnosed with a UTI she did receive a dose of intramuscular Rocephin however as the patient was having symptoms of nausea vomiting and difficulty keeping anything down she has been advised to go to the hospital for admission IV antibiotics on arrival to the hospital patient did have some chills but no high-grade fever has been recorded patient did have elevated white count 12.4 UA was positive urine cultures currently pending patient has been started on Rocephin admitted to hospital patient also have a chronic swelling her lower extremity noticed to have slight erythema with concern for cellulitis infectious disease was consulted patient having symptoms to the leg has been mostly swelling no significant pain or redness currently no open wound or any drainage. Review of Systems Positive point has been mentioned in HPI rest of the systems are negative Past Medical History Past Medical History: Asthma, Coronary Artery Disease (CAD), Cancer, Heart Failure, COPD, CVA/TIA, Diabetes Mellitus, GERD/Reflux, Hearing Disorder / Deafness, Hyperlipidemia, Hypertension, Liver Disease, Myocardial Infarction ([place]), Osteoarthritis (OA), Pneumonia, Respiratory Disorder, Skin Disorder, Thyroid Disorder Additional Past Medical History / Comment(s): Sarcoidosis, sjogrens syndrome, 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, non- alcoholic steatohepatitis - HAS STENT, nephrolithiasis, osteoporosis,sciatica,RLS anemia,hx of TIA 2,thyroid nodule, diverticulosis, skin CA, tracheobronchomalacia, restless leg syndrome, moderate degree of aortic stenosis. CELLULITIS LLE. aortic valve pb. Chronic back problems. 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 Last Myocardial Infarction Date:: unknown History of Any Multi-Drug Resistant Organisms: None Reported Past Surgical History: Back Surgery, Cholecystectomy, Heart Catheterization, Tubal Ligation Additional Past Surgical History / Comment(s): Bronchoscopies, cystoscopy , laminectomy total of 16 back sx including implanted pain stimulator, liver biopsy, cataract surgery , liver bx 2008 had ercp /stent in liver, skin ca removed. jonah carpal tunnel done ,heel spurs rt heel . thyroid bx(nodule) RING FINGER RIGHT HAND RIGHT. Colonoscopy 2009(2nd) Past Anesthesia/Blood Transfusion Reactions: Motion Sickness Additional Past Anesthesia/Blood Transfusion Reaction / Comm: Claustrophobia. No history of blood transfusions. Patient was adopted, No know family HX. Past Psychological History: Anxiety, Depression Additional Psychological History / Comment(s): Pt lives with and 1 dog in one level home 2 steps into home. Has cane/walker, shower chair, nebulizer at home. Currently no outside services. Smoking Status: Never smoker Past Alcohol Use History: None Reported Past Drug Use History: None Reported - Past Family History Father History Unknown: Yes Additional Family Medical History / Comment(s): was adopted Mother History Unknown: Yes Family Medical History: Cancer Additional Family Medical History / Comment(s): GRANDFATHER HAD COLON CA. An aunt had breast cancer. Medications and Allergies Home Medications Medication Instructions Recorded Confirmed Type Aspirin 81 mg PO DAILY 06/24/15 04/09/19 History Atorvastatin [Lipitor] 40 mg PO HS 06/24/15 04/09/19 History Cholecalciferol [Vitamin D3 (25 5,000 unit PO QAM 06/24/15 04/09/19 History Mcg = 1000 Iu)] predniSONE 5 mg PO DAILY 10/18/16 04/09/19 History Metoprolol Succinate [Toprol XL] 25 mg PO DAILY 02/10/17 04/09/19 History Alendronate Sodium [Fosamax] 70 mg PO CURRY 06/14/17 04/09/19 History Budesonide-Formot 160-4.5 Mcg 2 puff INHALATION RT-BID puff 08/05/17 04/09/19 Rx [Symbicort 160-4.5 Mcg Inhaler] Albuterol Sulfate [Proventil Hfa] 1 - 2 puff INHALATION RT-Q6H PRN 08/16/17 04/09/19 History Cetirizine HCl [Zyrtec] 10 mg PO HS 10/08/17 04/09/19 History Furosemide [Lasix] 40 mg PO BID PRN 12/24/17 04/09/19 History Cefuroxime Axetil [Ceftin] 500 mg PO BID 04/09/19 04/09/19 History Gabapentin [Neurontin] 300 mg PO HS 04/09/19 04/09/19 History Insulin Regular, Human [NovoLIN R] 10 unit SQ HS 04/09/19 04/09/19 History Insulin Regular, Human [NovoLIN R] 12 unit SQ AC-BID 04/09/19 04/09/19 History Insulin Regular, Human [NovoLIN R] 20 unit SQ AC-LUNCH 04/09/19 04/09/19 History Ipratropium Nebulized [Atrovent 0.5 mg INHALATION RT-QID PRN 04/09/19 04/09/19 History Nebulized 0.2 MG/ML] Magnesium Citrate 1,000 mg PO HS 04/09/19 04/09/19 History Multivitamin/Iron/Folic Acid 1 tab PO DAILY 04/09/19 04/09/19 History [Centrum Adults Tablet] Pramipexole Di-HCl [Mirapex] 1.5 mg PO BID@0700,1200 04/09/19 04/09/19 History Spironolactone [Aldactone] 50 mg PO DAILY PRN 04/09/19 04/09/19 History metFORMIN HCL 1,000 mg PO BID 04/09/19 04/09/19 History traMADol HCL [Ultram] 50 mg PO Q8H PRN 04/09/19 04/09/19 History Allergies Allergy/AdvReac Type Severity Reaction Status Date / Time erythromycin base Allergy Unknown Rash/Hives Verified 04/09/19 07:28 [Erythromycin Base] metoclopramide HCl Allergy Unknown Rash/Hives Verified 04/09/19 07:28 [From Reglan] Sulfa (Sulfonamide Allergy Unknown Rash/Hives Verified 04/09/19 07:28 Antibiotics) Physical Exam Vitals: Vital Signs Temp Pulse Pulse Resp BP BP Pulse Ox 04/09/19 15:40 94 16 04/09/19 14:03 98.4 F 94 16 110/55 97 04/09/19 08:19 98.0 F 92 16 119/70 96 04/09/19 08:00 17 04/09/19 05:15 98.5 F 89 18 152/86 97 04/09/19 01:20 95 16 128/63 95 04/08/19 22:55 98.7 F 99 15 133/65 94 L 04/08/19 19:41 98.5 F 102 H 19 148/69 95 04/08/19 18:38 98.4 F 98 19 160/75 99 Intake and Output 04/09/19 04/09/19 04/09/19 06:59 14:59 22:59 Other: Voiding Method Toilet Toilet Diaper Diaper Incontinent Incontinent # Voids 4 5 Weight 89.811 kg GENERAL DESCRIPTION: Elderly female up in the chair, no distress. No tachypnea or accessory muscle of respiration use. HEENT: Shows Pallor , no scleral icterus. Oral mucous membrane is dry. NECK: Trachea central, no thyromegaly. LUNGS: Unlabored breathing. Clear to auscultation anteriorly. No wheeze or crackle. HEART: S1, S2, regular rate and rhythm. ABDOMEN: Soft, no tenderness , guarding or rigidity EXTREMITIES: Diffuse swelling both legs with minimal erythema no significant warmth open wound or any drainage. SKIN: No rash, no masses palpable. NEUROLOGICAL: The patient is awake, alert, oriented x3, mood and affect normal. Results CBC & Chem 7: 04/08/19 20:54 04/08/19 20:54 Labs: Abnormal Lab Results - Last 24 Hours (Table) 04/08/19 04/08/19 04/08/19 Range/Units 20:54 20:54 22:04 WBC 12.4 H (3.8-10.6) k/uL Plt Count 113 L (150-450) k/uL Neutrophils # 10.9 H (1.3-7.7) k/uL Lymphocytes # 0.7 L (1.0-4.8) k/uL BUN 30 H (7-17) mg/dL Glucose 322 H (74-99) mg/dL POC Glucose (mg/dL) (75-99) mg/dL AST 40 H (14-36) U/L ALT 38 H (4-34) U/L Alkaline Phosphatase 183 H (38-126) U/L Ur Specific [place] 1.037 H (1.001-1.035) Urine Glucose (UA) 4+ H (Negative) Urine Ketones 2+ H (Negative) Urine Blood Small H (Negative) Ur Leukocyte Esterase Small H (Negative) Urine RBC 7 H (0-5) /hpf Urine WBC 38 H (0-5) /hpf Urine Mucus Rare H (None) /hpf 04/08/19 04/09/19 04/09/19 Range/Units 23:01 08:17 12:26 WBC (3.8-10.6) k/uL Plt Count (150-450) k/uL Neutrophils # (1.3-7.7) k/uL Lymphocytes # (1.0-4.8) k/uL BUN (7-17) mg/dL Glucose (74-99) mg/dL POC Glucose (mg/dL) 293 H 271 H 322 H (75-99) mg/dL AST (14-36) U/L ALT (4-34) U/L Alkaline Phosphatase (38-126) U/L Ur Specific [place] (1.001-1.035) Urine Glucose (UA) (Negative) Urine Ketones (Negative) Urine Blood (Negative) Ur Leukocyte Esterase (Negative) Urine RBC (0-5) /hpf Urine WBC (0-5) /hpf Urine Mucus (None) /hpf Microbiology - Last 24 Hours (Table) 04/08/19 22:04 Urine Culture - Preliminary Urine,Voided Assessment and Plan Assessment: patient presented to the hospital with nausea vomiting urinary burning incontinence and frequency likely symptomatic noting infection and likely from enteric gram-negative pathogen 2-patient did have some chronic swelling in her leg minimal erythema mild cellulitis bilateral excluded though her main symptom remains to be urinary (1) UTI (urinary tract infection) Current Visit: Yes Status: Acute Code(s): N39.0 - URINARY TRACT INFECTION, SITE NOT SPECIFIED SNOMED Code(s): 08904897 Plan: 1-Rocephin 1 g IV every daily while waiting for urine culture to finalize 2-Osei wrap both leg from just above toes to below the knee to keep the swelling down We will follow on clinical condition and cultures to further adjust medication if needed Thank you for this consultation we will follow the patient along with you Time with Patient: Greater than 30
[2019-04-09 22:54] VITALS: PULSE 82
[2019-04-10 06:18] VITALS: BP 113/70; RESP 22; TEMP 98
[2019-04-10 07:21] LABS: Glucose,Whole Blood 199 mg/dL (75-99)
[2019-04-10] MEDS: SYMBICORT 160-4.5 MCG INHALER INHALATION SCH (07:35)
[2019-04-10] MEDS: metFORMIN 500 MG TAB PO SCH (08:17)
[2019-04-10] MEDS: ASPIRIN 81 MG PO SCH (08:18)
[2019-04-10] MEDS: CHOLECALCIFEROL 1,000 UNIT TAB PO SCH (08:18)
[2019-04-10] MEDS: METOPROLOL SUCCINATE (ER) 25 MG TAB.ER.24H PO SCH (08:18)
[2019-04-10] MEDS: MULTIVITAMINS, THERA 1 EACH TAB PO SCH (08:18)
[2019-04-10] MEDS: INSULIN ASPART (NovoLOG) 100 UNIT/ML VIAL SQ SCH ×2 (08:18→12:40)
[2019-04-10] MEDS: SODIUM CHLORIDE 0.9% 1,000 ML IV SCH (08:21)
[2019-04-10] MEDS: INSULIN REGULAR 100 UNIT/ML VIAL SQ SCH ×2 (09:04→12:40)
[2019-04-10] MEDS: PRAMIPEXOLE 0.5 MG TAB PO SCH ×2 (09:04→12:40)
[2019-04-10] MEDS: predniSONE 5 MG TAB PO SCH (09:04)
[2019-04-10 11:32] LABS: Glucose,Whole Blood 260 mg/dL (75-99)
--- NOTE | 2019-04-10 15:02 | PN ---
PROGRESS NOTE DATE OF SERVICE: 04/10/2019 REASON FOR FOLLOWUP: UTI and a question of cellulitis. INTERVAL HISTORY: The patient is currently afebrile. The patient is breathing comfortably. The patient denies further nausea. No vomiting. No chest pain, shortness of breath or cough. No abdominal pain. No diarrhea. No pain in the lower extremity. PHYSICAL EXAMINATION: Blood pressure 113/70 with a pulse of 82, temperature 98. She is 94% on room air. General description is an elderly female up in the chair in no distress. RESPIRATORY SYSTEM: Unlabored breathing. Clear to auscultation anteriorly. HEART: S1, S2. Regular rate and rhythm. ABDOMEN: Soft. No tenderness. Legs are currently wrapped up. No obvious drainage on the dressing. LABS: Blood culture negative. Urine negative. DIAGNOSTIC IMPRESSION AND PLAN: 1. Patient admitted to hospital with urinary symptoms and nausea and vomiting, likely Urinary tract infection, urine was positive. Culture negative. As the patient was already on antibiotic, further cultures were obtained. She is already on Ceftin, with which she will continue at home to finish her therapy. 2. Lower extremity swelling. Continue with Osei wrap and continue with supportive care. MMODL / IJN: [id number] / WILLEM
--- NOTE | 2019-04-11 00:19 | P.DS ---
Providers Date of admission: 04/08/19 23:12 Expected date of discharge: 04/10/19 Attending physician: Ronan Webster Consults: 04/09/19 14:44 Consult Physician Routine Consulting Provider: Rayshawn Roman Consult Reason/Comments: Cellulitis BL legs Do you want consulting provider notified?: Yes Primary care physician: Harry Abel [facility] Course: Chief Complaint: urinary frequency Hospital course: This is a pleasant 74-year-old patient of Dr. Abel. Chronic stable medical conditions include asthma, coronary artery disease, COPD, stroke, diabetes, GERD, hyperlipidemia, hypertension, hypothyroid, sarcoidosis, tracheobronchomalacia, Sjogren syndrome, chronic inflammation treated demyelinating polyneuropathy, transfers colitis, nephrolithiasis, osteoporosis, sciatica, specific syndrome, anemia, diabetes, hypertension, hyperlipidemia, hypothyroid, restless leg syndrome, CHF with diastolic dysfunction noted aortic stenosis and chronic lower extremity cellulitis. Patient presents with increased frequency of urination unable to hold urine. Slight dysuria. No fever no chills decreased appetite and nausea vomiting tired rundown. Treated with IV ceftriaxone. Symptoms improved. Urine culture negative. Doing well today. Consultation: Dr. Roman from ID Physical examination: VITAL SIGNS: 98, 82, 22, 11 3/70, 94% room air GENERAL: Sitting up, comfortable. EYES: Pupils equal. Conjunctiva normal. HEENT: External appearance of nose and ears normal, oral cavity grossly normal. NECK: JVD not raised; masses not palpable. HEART: First and second heart sounds are normal; no edema. LUNGS: Respiratory rate normal; clear to auscultation. ABDOMEN: Soft, nontender, liver spleen not palpable, no masses palpable. PSYCH: Alert and oriented x3; mood and affect normal. MUSCULOSKELETAL: Evidence of OA INVESTIGATIONS, reviewed in the clinical context:: White count 12.4 hemoglobin 40.4 platelets 113 potassium 4 creatinine 0.53 UA positive for leukoesterase WBC Urine culture negative Assessment: -Acute UTI and cystitis -Coronary artery disease -Asthma -Diabetes mellitus type 2 -GERD -Hyperlipidemia -Essential hypertension -Primary osteoarthritis -Sjogren syndrome -Nonalcoholic steatohepatitis -Nephrolithiasis -Restless leg syndrome -Diverticulosis -Restless leg syndrome -Moderate aortic stenosis Disposition: Home Patient Condition at Discharge: Stable Plan - Discharge Summary New Discharge Prescriptions: Continue Cholecalciferol [Vitamin D3 (25 Mcg = 1000 Iu)] 5,000 unit PO QAM Aspirin 81 mg PO DAILY Atorvastatin [Lipitor] 40 mg PO HS predniSONE 5 mg PO DAILY Metoprolol Succinate [Toprol XL] 25 mg PO DAILY Alendronate Sodium [Fosamax] 70 mg PO CURRY Budesonide-Formot 160-4.5 Mcg [Symbicort 160-4.5 Mcg Inhaler] 2 puff INHALATION RT-BID puff Albuterol Sulfate [Proventil Hfa] 1 - 2 puff INHALATION RT-Q6H PRN PRN Reason: Shortness Of Breath Cetirizine HCl [Zyrtec] 10 mg PO HS Furosemide [Lasix] 40 mg PO BID PRN PRN Reason: Edema Multivitamin/Iron/Folic Acid [Centrum Adults Tablet] 1 tab PO DAILY Ipratropium Nebulized [Atrovent Nebulized 0.2 MG/ML] 0.5 mg INHALATION RT-QID PRN PRN Reason: Shortness Of Breath Cefuroxime Axetil [Ceftin] 500 mg PO BID traMADol HCL [Ultram] 50 mg PO Q8H PRN PRN Reason: Pain Gabapentin [Neurontin] 300 mg PO HS Pramipexole Di-HCl [Mirapex] 1.5 mg PO BID@0700,1200 metFORMIN HCL 1,000 mg PO BID Spironolactone [Aldactone] 50 mg PO DAILY PRN PRN Reason: Edema Insulin Regular, Human [NovoLIN R] 20 unit SQ AC-LUNCH Insulin Regular, Human [NovoLIN R] 10 unit SQ HS Insulin Regular, Human [NovoLIN R] 12 unit SQ AC-BID Magnesium Citrate 1,000 mg PO HS Discharge Medication List Aspirin 81 mg PO DAILY 06/24/15 [History] Atorvastatin [Lipitor] 40 mg PO HS 06/24/15 [History] Cholecalciferol [Vitamin D3 (25 Mcg = 1000 Iu)] 5,000 unit PO QAM 06/24/15 [History] predniSONE 5 mg PO DAILY 10/18/16 [History] Metoprolol Succinate [Toprol XL] 25 mg PO DAILY 02/10/17 [History] Alendronate Sodium [Fosamax] 70 mg PO CURRY 06/14/17 [History] Budesonide-Formot 160-4.5 Mcg [Symbicort 160-4.5 Mcg Inhaler] 2 puff INHALATION RT-BID puff 08/05/17 [Rx] Albuterol Sulfate [Proventil Hfa] 1 - 2 puff INHALATION RT-Q6H PRN 08/16/17 [History] Cetirizine HCl [Zyrtec] 10 mg PO HS 10/08/17 [History] Furosemide [Lasix] 40 mg PO BID PRN 12/24/17 [History] Cefuroxime Axetil [Ceftin] 500 mg PO BID 04/09/19 [History] Gabapentin [Neurontin] 300 mg PO HS 04/09/19 [History] Insulin Regular, Human [NovoLIN R] 10 unit SQ HS 04/09/19 [History] Insulin Regular, Human [NovoLIN R] 12 unit SQ AC-BID 04/09/19 [History] Insulin Regular, Human [NovoLIN R] 20 unit SQ AC-LUNCH 04/09/19 [History] Ipratropium Nebulized [Atrovent Nebulized 0.2 MG/ML] 0.5 mg INHALATION RT-QID PRN 04/09/19 [History] Magnesium Citrate 1,000 mg PO HS 04/09/19 [History] Multivitamin/Iron/Folic Acid [Centrum Adults Tablet] 1 tab PO DAILY 04/09/19 [History] Pramipexole Di-HCl [Mirapex] 1.5 mg PO BID@0700,1200 04/09/19 [History] Spironolactone [Aldactone] 50 mg PO DAILY PRN 04/09/19 [History] metFORMIN HCL 1,000 mg PO BID 04/09/19 [History] traMADol HCL [Ultram] 50 mg PO Q8H PRN 04/09/19 [History] Follow up Appointment(s)/Referral(s): Harry Abel DO [Primary Care Provider] - 1 Week (Please call office to set up follow up appointment) Patient Instructions/Handouts: Dehydration (DC) Activity/Diet/Wound Care/Special Instructions: Activity as tolerated. Diet as tolerated. Follow with your primary care. Discharge Disposition: HOME SELF-CARE
== END 2019-04-10 13:39 | disposition home or self-care (01) ==
LOC: EC 18:29 → 6NMEDSUR 23:12
PROVIDERS: ADMIT Hospitalist; ATTEND Hospitalist
DX: N30.90 Cystitis, unspecified without hematuria (principal); E03.9 Hypothyroidism, unspecified; E11.42 Type 2 diabetes mellitus with diabetic polyneuropathy; E11.65 Type 2 diabetes mellitus with hyperglycemia; E78.5 Hyperlipidemia, unspecified; E86.0 Dehydration; F32.9 Major depressive disorder, single episode, unspecified; G25.81 Restless legs syndrome; F40.240 Claustrophobia; H91.90 Unspecified hearing loss, unspecified ear; I11.0 Hypertensive heart disease with heart failure; I25.10 Atherosclerotic heart disease of native coronary artery without angina pectoris; I25.2 Old myocardial infarction; I35.0 Nonrheumatic aortic (valve) stenosis; I50.32 Chronic diastolic (congestive) heart failure; J44.9 Chronic obstructive pulmonary disease, unspecified; K21.9 Gastro-esophageal reflux disease without esophagitis; K57.90 Diverticulosis of intestine, part unspecified, without perforation or abscess without bleeding; K75.81 Nonalcoholic steatohepatitis (NASH); L03.115 Cellulitis of right lower limb; L03.116 Cellulitis of left lower limb; M19.91 Primary osteoarthritis, unspecified site; M35.00 Sjogren syndrome, unspecified; M54.30 Sciatica, unspecified side; M81.0 Age-related osteoporosis without current pathological fracture; N20.0 Calculus of kidney; Z79.4 Long term (current) use of insulin; Z79.51 Long term (current) use of inhaled steroids; Z79.82 Long term (current) use of aspirin; Z79.83 Long term (current) use of bisphosphonates; Z79.899 Other long term (current) drug therapy; Z80.0 Family history of malignant neoplasm of digestive organs; Z80.3 Family history of malignant neoplasm of breast; Z86.73 Personal history of transient ischemic attack (TIA), and cerebral infarction without residual deficits; Z87.440 Personal history of urinary (tract) infections; Z87.442 Personal history of urinary calculi; G61.81 Chronic inflammatory demyelinating polyneuritis; Z90.49 Acquired absence of other specified parts of digestive tract; Z98.51 Tubal ligation status; Z98.49 Cataract extraction status, unspecified eye; Z88.1 Allergy status to other antibiotic agents; Z88.2 Allergy status to sulfonamides; Z88.8 Allergy status to other drugs, medicaments and biological substances; M79.89 Other specified soft tissue disorders
CPT/HCPCS: 96365; 96376; 96361; 96375; 99284; 36415; 94640 ×2; 80053; 83605; 85025; 81001; 87040; 87086; G0378 ×2; J2405; J0696 ×2; J7512 ×2

== ENCOUNTER 2019-04-29 11:08 | Emergency (ER) | payer MEDICARE, OTHER ==
[2019-04-29 11:14] VITALS: TEMP 97.9
[2019-04-29 12:16] LABS: Basophils # (A) 0.1 k/uL (0-0.2); Basophils % (A) 1 %; Eosinophils # (A) 0.2 k/uL (0-0.7); Eosinophils % (A) 3 %; HGB 14.6 gm/dL (11.4-16.0); Lymphocytes # (A) 0.8 k/uL (1.0-4.8); Lymphocytes % (A) 12 %; MCH 31.8 pg (25.0-35.0); MCHC 33.9 g/dL (31.0-37.0); MCV 93.7 fL (80.0-100.0); Mean Platelet Volume 7.5; Monocytes # (A) 0.4 k/uL (0-1.0); Monocytes % (A) 6 %; Neutrophils % (A) 76 %; Platelet Count 132 k/uL (150-450); RBC 4.59 m/uL (3.80-5.40); RDW 14.1 % (11.5-15.5); WBC 6.6 k/uL (3.8-10.6)
[2019-04-29 12:44] LABS: ALT 28 U/L (4-34); AST 34 U/L (14-36); African American GFR (CKD) >90 (>60 ml/min/1.73 sqM); Albumin 3.5 g/dL (3.5-5.0); Alkaline Phosphatase 92 U/L (38-126); Anion Gap 6 mmol/L; Blood Urea Nitrogen 24 mg/dL (7-17); C Reactive Protein <5.0 mg/L (<10.0); Calcium 9.8 mg/dL (8.4-10.2); Carbon Dioxide 25 mmol/L (22-30); Chloride 110 mmol/L (98-107); Glucose 218 mg/dL (74-99); Non-African American GFR(CKD) >90 (>60 ml/min/1.73 sqM); Potassium 4.3 mmol/L (3.5-5.1); Sodium 141 mmol/L (137-145); Total Bilirubin 1.6 mg/dL (0.2-1.3); Total Protein 6.4 g/dL (6.3-8.2)
[2019-04-29 13:20] LABS: Erythrocyte Sedimentation Rate 16 mm/hr (0-20)
[2019-04-29] MEDS ORDERED: cefTRIAXone IN SWFI 1,000 MG/10 ML SYRINGE IVP STA (13:26)
--- NOTE | 2019-04-29 13:31 | ED ---
Extremity Problem HPI - General Chief complaint: Extremity Problem,Nontraumatic Stated complaint: diabetic wound rt foot Time Seen by Provider: 04/29/19 11:19 Source: patient Mode of arrival: wheelchair Limitations: no limitations - History of Present Illness Initial comments: Patient is a 74-year-old female presenting to the emergency Department with c omplaints of a wound starting on her left lower leg. Patient states she noticed it approximately 2 days ago and feels like it is starting to seep. Patient has history of lower leg edema and venous insufficiency. She is not having a lot of pain in her lower legs just some increase in redness and that this sore that she noticed. Patient denies any fever, chills, nausea, vomiting. She has no other complaints at this time. Patient does express deep concerned that she does not want to be admitted to the hospital if not necessary as she recently lost her and has other priorities at this time. She simply wanted another opinion and wanted to be put on antibiotics if necessary. Upon arrival to the ER, her vital signs are stable. - Related Data Home Medications Medication Instructions Recorded Confirmed Aspirin 81 mg PO DAILY 06/24/15 04/09/19 Atorvastatin [Lipitor] 40 mg PO HS 06/24/15 04/09/19 Cholecalciferol [Vitamin D3 (25 5,000 unit PO QAM 06/24/15 04/09/19 Mcg = 1000 Iu)] predniSONE 5 mg PO DAILY 10/18/16 04/09/19 Metoprolol Succinate [Toprol XL] 25 mg PO DAILY 02/10/17 04/09/19 Alendronate Sodium [Fosamax] 70 mg PO CURRY 06/14/17 04/09/19 Albuterol Sulfate [Proventil Hfa] 1 - 2 puff INHALATION RT-Q6H PRN 08/16/17 04/09/19 Cetirizine HCl [Zyrtec] 10 mg PO HS 10/08/17 04/09/19 Furosemide [Lasix] 40 mg PO BID PRN 12/24/17 04/09/19 Cefuroxime Axetil [Ceftin] 500 mg PO BID 04/09/19 04/09/19 Gabapentin [Neurontin] 300 mg PO HS 04/09/19 04/09/19 Insulin Regular, Human [NovoLIN R] 10 unit SQ HS 04/09/19 04/09/19 Insulin Regular, Human [NovoLIN R] 12 unit SQ AC-BID 04/09/19 04/09/19 Insulin Regular, Human [NovoLIN R] 20 unit SQ AC-LUNCH 04/09/19 04/09/19 Ipratropium Nebulized [Atrovent 0.5 mg INHALATION RT-QID PRN 04/09/19 04/09/19 Nebulized 0.2 MG/ML] Magnesium Citrate 1,000 mg PO HS 04/09/19 04/09/19 Multivitamin/Iron/Folic Acid 1 tab PO DAILY 04/09/19 04/09/19 [Centrum Adults Tablet] Pramipexole Di-HCl [Mirapex] 1.5 mg PO BID@0700,1200 04/09/19 04/09/19 Spironolactone [Aldactone] 50 mg PO DAILY PRN 04/09/19 04/09/19 metFORMIN HCL 1,000 mg PO BID 04/09/19 04/09/19 traMADol HCL [Ultram] 50 mg PO Q8H PRN 04/09/19 04/09/19 Previous Rx's Medication Instructions Recorded Budesonide-Formot 160-4.5 Mcg 2 puff INHALATION RT-BID puff 08/05/17 [Symbicort 160-4.5 Mcg Inhaler] Cephalexin [Keflex] 500 mg PO Q6HR 10 Days #40 cap 04/29/19 Allergies Allergy/AdvReac Type Severity Reaction Status Date / Time erythromycin base Allergy Unknown Rash/Hives Verified 04/09/19 07:28 [Erythromycin Base] metoclopramide HCl Allergy Unknown Rash/Hives Verified 04/09/19 07:28 [From Reglan] Sulfa (Sulfonamide Allergy Unknown Rash/Hives Verified 04/09/19 07:28 Antibiotics) Review of Systems ROS Statement: Those systems with pertinent positive or pertinent negative responses have been documented in the HPI. ROS Other: All systems not noted in ROS Statement are negative. Past Medical History Past Medical History: Asthma, Coronary Artery Disease (CAD), Cancer, Heart Failure, COPD, CVA/TIA, Diabetes Mellitus, GERD/Reflux, Hearing Disorder / Deafness, Hyperlipidemia, Hypertension, Liver Disease, Myocardial Infarction ([place]), Osteoarthritis (OA), Pneumonia, Respiratory Disorder, Skin Disorder, Thyroid Disorder Additional Past Medical History / Comment(s): Sarcoidosis, sjogrens syndrome, 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, non- alcoholic steatohepatitis - HAS STENT, nephrolithiasis, osteoporosis,sciatica,RLS anemia,hx of TIA 2,thyroid nodule, diverticulosis, skin CA, tracheobronchomalacia, restless leg syndrome, moderate degree of aortic stenosis. CELLULITIS LLE. aortic valve pb. Chronic back problems. 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 Last Myocardial Infarction Date:: unknown History of Any Multi-Drug Resistant Organisms: None Reported Past Surgical History: Back Surgery, Cholecystectomy, Heart Catheterization, Tubal Ligation Additional Past Surgical History / Comment(s): Bronchoscopies, cystoscopy , laminectomy total of 16 back sx including implanted pain stimulator, liver biopsy, cataract surgery , liver bx 2008 had ercp /stent in liver, skin ca removed. jonah carpal tunnel done ,heel spurs rt heel . thyroid bx(nodule) RING FINGER RIGHT HAND RIGHT. Colonoscopy 2008(2nd), disc fusion Past Anesthesia/Blood Transfusion Reactions: Motion Sickness Additional Past Anesthesia/Blood Transfusion Reaction / Comment(s): Claustrophobia. No history of blood transfusions. Patient was adopted, No know family HX. Past Psychological History: Anxiety, Depression Smoking Status: Never smoker Past Alcohol Use History: None Reported Past Drug Use History: None Reported - Past Family History Father History Unknown: Yes Additional Family Medical History / Comment(s): was adopted Mother History Unknown: Yes Family Medical History: Cancer Additional Family Medical History / Comment(s): GRANDFATHER HAD COLON CA. An aunt had breast cancer. General Exam - General Exam Comments Initial Comments: GENERAL: Well-appearing, well-nourished and in no acute distress. HEAD: Atraumatic, normocephalic. EYES: Pupils equal round and reactive to light, extraocular movements intact, sclera anicteric, conjunctiva are normal. ENT: Nares patent, oropharynx clear without exudates. Moist mucous membranes. NECK: Normal range of motion, supple without lymphadenopathy or JVD. LUNGS: Breath sounds clear to auscultation bilaterally and equal. No wheezes rales or rhonchi. HEART: Regular rate and rhythm without murmurs, rubs or gallops. ABDOMEN: Soft, nontender, normoactive bowel sounds. No guarding, no rebound. No masses appreciated. EXTREMITIES: Patient has bilateral lower leg edema and erythema consistent with venous insufficiency. Patient's erythema is worse on the right lower extremity. She is neurovascular intact in bilateral lower extremities. She has full range of motion. NEUROLOGICAL: Cranial nerves II through XII grossly intact. Normal speech, normal gait. PSYCH: Normal mood, normal affect. SKIN: Warm, Dry, normal turgor, no rashes. Patient does have a superficial blistered/wound area approximately 3 cm in diameter on the right lower leg, lateral aspect. It is currently weak being clear fluid. Culture was taken of this wound. Limitations: no limitations Course Vital Signs 04/29/19 04/29/19 11:11 14:09 Temperature 97.9 F Pulse Rate 93 88 Respiratory 17 18 Rate Blood Pressure 130/74 128/78 O2 Sat by Pulse 96 98 Oximetry Medical Decision Making - Medical Decision Making Patient is a 74-year-old female presenting with a superficial wound on her right lower leg, lateral aspect 2 days. Vital signs are stable. Patient has history of lower leg cellulitis. Lab work today shows no acute abnormalities, ESR is 16, CRP is less than 5. I discussed these findings with the patient. She does not want to be admitted for this. Patient will be given dose of Rocephin through her IV before discharge. She will then be given Keflex to continue with outpatient and will follow up with her PCP. Patient is agreement with this plan of care. Return parameters were discussed with the patient she verbalized understanding. He is discussed with Dr. Manning. - Lab Data Result diagrams: 04/29/19 11:46 04/29/19 11:46 Lab Results 04/29/19 04/29/19 Range/Units 11:46 11:46 WBC 6.6 (3.8-10.6) k/uL RBC 4.59 (3.80-5.40) m/uL Hgb 14.6 (11.4-16.0) gm/dL Hct 43.0 (34.0-46.0) % MCV 93.7 (80.0-100.0) fL MCH 31.8 (25.0-35.0) pg MCHC 33.9 (31.0-37.0) g/dL RDW 14.1 (11.5-15.5) % Plt Count 132 L (150-450) k/uL Neutrophils % 76 % Lymphocytes % 12 % Monocytes % 6 % Eosinophils % 3 % Basophils % 1 % Neutrophils # 5.0 (1.3-7.7) k/uL Lymphocytes # 0.8 L (1.0-4.8) k/uL Monocytes # 0.4 (0-1.0) k/uL Eosinophils # 0.2 (0-0.7) k/uL Basophils # 0.1 (0-0.2) k/uL ESR 16 (0-20) mm/hr Sodium 141 (137-145) mmol/L Potassium 4.3 (3.5-5.1) mmol/L Chloride 110 H (98-107) mmol/L Carbon Dioxide 25 (22-30) mmol/L Anion Gap 6 mmol/L BUN 24 H (7-17) mg/dL Creatinine 0.48 L (0.52-1.04) mg/dL Est GFR (CKD-EPI)AfAm >90 (>60 ml/min/1.73 sqM) Est GFR (CKD-EPI)NonAf >90 (>60 ml/min/1.73 sqM) Glucose 218 H (74-99) mg/dL Calcium 9.8 (8.4-10.2) mg/dL Total Bilirubin 1.6 H (0.2-1.3) mg/dL AST 34 (14-36) U/L ALT 28 (4-34) U/L Alkaline Phosphatase 92 (38-126) U/L C-Reactive Protein <5.0 (<10.0) mg/L Total Protein 6.4 (6.3-8.2) g/dL Albumin 3.5 (3.5-5.0) g/dL Disposition Clinical Impression: Cellulitis of right lower leg, Wound of right leg Disposition: HOME SELF-CARE Condition: Stable Instructions (If sedation given, give patient instructions): Cellulitis (ED) Additional Instructions: Please return to the Emergency Department if symptoms worsen or any other concerns. Take antibiotics as prescribed. Follow-up with PCP in 1-3 days. Prescriptions: Cephalexin [Keflex] 500 mg PO Q6HR 10 Days #40 cap Is patient prescribed a controlled substance at d/c from ED?: No Referrals: Harry Abel DO [Primary Care Provider] - 1-2 days
[2019-04-29 14:21] VITALS: BP 128/78; PULSE 88; RESP 18
== END 2019-04-29 14:09 | disposition home or self-care (01) ==
LOC: EC 11:08
DX: L03.115 Cellulitis of right lower limb (principal); E11.69 Type 2 diabetes mellitus with other specified complication; S80.921A Unspecified superficial injury of right lower leg, initial encounter; J44.9 Chronic obstructive pulmonary disease, unspecified; I25.10 Atherosclerotic heart disease of native coronary artery without angina pectoris; I11.0 Hypertensive heart disease with heart failure; I50.9 Heart failure, unspecified; I25.2 Old myocardial infarction; E78.5 Hyperlipidemia, unspecified; Z79.4 Long term (current) use of insulin; Z79.899 Other long term (current) drug therapy; Z79.82 Long term (current) use of aspirin; Z79.51 Long term (current) use of inhaled steroids; Z88.1 Allergy status to other antibiotic agents; Z88.2 Allergy status to sulfonamides; Z88.8 Allergy status to other drugs, medicaments and biological substances; Z86.73 Personal history of transient ischemic attack (TIA), and cerebral infarction without residual deficits; X58.XXXA Exposure to other specified factors, initial encounter
CPT/HCPCS: 36415; 80053; 85652; 85025; 86140; 87040; 87070; 87205; 99283; 96365; J0696

== ENCOUNTER 2019-05-16 01:14 | Emergency (ER) | payer MEDICARE ==
[2019-05-16 01:20] VITALS: RESP 18; TEMP 98.1
[2019-05-16] MEDS ORDERED: MORPHINE SULFATE 4 MG/ML SYRINGE IV STA (01:33)
[2019-05-16 02:04] LABS: Basophils # (A) 0.1 k/uL (0-0.2); Basophils % (A) 1 %; Eosinophils # (A) 0.4 k/uL (0-0.7); Eosinophils % (A) 7 %; HCT 42.2 % (34.0-46.0); HGB 13.5 gm/dL (11.4-16.0); Lymphocytes # (A) 1.2 k/uL (1.0-4.8); Lymphocytes % (A) 20 %; MCH 30.2 pg (25.0-35.0); MCV 94.3 fL (80.0-100.0); Mean Platelet Volume 7.5; Monocytes # (A) 0.4 k/uL (0-1.0); Monocytes % (A) 7 %; Neutrophils # (A) 3.7 k/uL (1.3-7.7); Neutrophils % (A) 63 %; Platelet Count 123 k/uL (150-450); RBC 4.48 m/uL (3.80-5.40); RDW 14.4 % (11.5-15.5); WBC 5.9 k/uL (3.8-10.6)
[2019-05-16 02:11] VITALS: BP 116/59; PULSE 82
--- NOTE | 2019-05-16 02:11 | CT ---
EXAMINATION TYPE: CT brain cspine wo con DATE OF EXAM: 05/16/2019 COMPARISON: Cervical spine CT scan 12/17/2018 CT brain 08/24/2014. HISTORY: fall CT DLP: 1517.7 mGycm Automated exposure control for dose reduction was used. Multiple axial sections were obtained of the brain without contrast. Multiple axial sections were obt ained of the cervical spine from the skull base to T1 vertebra without contrast. FINDINGS: Ventricles and sulci appear normal. There is no mass effect nor midline shift. There is no sign of in tracranial hemorrhage. There is large right frontal scalp hematoma. The calvarium is intact. Cervical vertebra have normal alignment. There is multilevel anterior fusion surgery from C3 to C6 ve rtebra. There is no evidence of cervical spine fracture. The skull base is intact. There is calcifica tion and thickening of the transverse ligament. IMPRESSION: Negative CT scan of the brain. No change. Frontal scalp hematoma. Multilevel cervical spine surgery. No fracture seen. No change compared to old exam.
[2019-05-16 02:14] LABS: African American GFR (CKD) >90 (>60 ml/min/1.73 sqM); Anion Gap 5 mmol/L; Blood Urea Nitrogen 19 mg/dL (7-17); Calcium 9.4 mg/dL (8.4-10.2); Carbon Dioxide 30 mmol/L (22-30); Chloride 104 mmol/L (98-107); Glucose 289 mg/dL (74-99); Non-African American GFR(CKD) >90 (>60 ml/min/1.73 sqM); Potassium 3.9 mmol/L (3.5-5.1); Sodium 139 mmol/L (137-145)
--- NOTE | 2019-05-16 02:18 | XR ---
EXAMINATION TYPE: XR lumbar spine 2 or 3V DATE OF EXAM: 05/16/2019 COMPARISON: 01/15/2014 HISTORY: Back pain TECHNIQUE: 3 views FINDINGS: There is a mild levoscoliosis. There are rods and screws fusing posteriorly the lumbar spin e. There is multilevel laminectomy defect. There is posterior fusion surgery from L1 to S1. There is osteopenia. Sacroiliac joints are intact. IMPRESSION: Significant osteopenia. This appears to be progressed compared to old exam. No significan t compression fracture seen. There is 30% old compression fracture of T11 unchanged.
--- NOTE | 2019-05-16 02:23 | XR ---
EXAMINATION TYPE: XR thoracic spine complete DATE OF EXAM: 05/16/2019 COMPARISON: Chest x-ray 10/08/2017 HISTORY: Back pain. Fall. TECHNIQUE: 3 views FINDINGS: There is mild thoracolumbar dextroscoliosis. There is hypertrophic spurring in the mid and lower thoracic spine. I see no significant compression deformity. There is no sign of a paraspinal ma ss. Posterior elements are intact. IMPRESSION: Multilevel spondylosis and dextroscoliosis. No fracture seen. No change compared to old c hest x-ray.
--- NOTE | 2019-05-16 03:02 | ED ---
Fall HPI - General Chief Complaint: Fall Stated Complaint: Fall Time Seen by Provider: 05/16/19 01:24 Source: EMS Mode of arrival: EMS - History of Present Illness Initial Comments: This patient is a 74-year-old woman who presents to be evaluated for a fall. The patient states that she has history of not sleeping well and as a consequence can fall asleep at the slightest noticed. She states that she had been sitting on the edge of her bed and believes she had fallen asleep and woke up as she felt himself falling and struck her head against the dresser. She ended up on the floor with head pain and mid back pain. She states that she was then not able to pull herself to her feet. She slid herself along the floor to the other room and then ended up calling and was brought here by ambulance for evaluation. She is denying pain other than headache and the mid back pain. She states that she was not on the floor for prolonged period, probably about 15 minutes. No fever or chills. No dyspnea, chest pain, nausea or vomiting. MD Complaint: fall -: minutes(s) Fall From: out of bed When Fall Occurred: just prior to arrival Fall Witnessed: no Place Fall Occurred: home Loss of Consciousness: none Prolonged Down Time?: no Symptoms Prior to Fall: none Location: head, back Severity: moderate Quality: aching Context: history of frequent falls Associated Symptoms: denies - Related Data Home Medications Medication Instructions Recorded Confirmed Aspirin 81 mg PO DAILY 06/24/15 04/09/19 Atorvastatin [Lipitor] 40 mg PO HS 06/24/15 04/09/19 Cholecalciferol [Vitamin D3 (25 5,000 unit PO QAM 06/24/15 04/09/19 Mcg = 1000 Iu)] predniSONE 5 mg PO DAILY 10/18/16 04/09/19 Metoprolol Succinate [Toprol XL] 25 mg PO DAILY 02/10/17 04/09/19 Alendronate Sodium [Fosamax] 70 mg PO CURRY 06/14/17 04/09/19 Albuterol Sulfate [Proventil Hfa] 1 - 2 puff INHALATION RT-Q6H PRN 08/16/17 04/09/19 Cetirizine HCl [Zyrtec] 10 mg PO HS 10/08/17 04/09/19 Furosemide [Lasix] 40 mg PO BID PRN 12/24/17 04/09/19 Cefuroxime Axetil [Ceftin] 500 mg PO BID 04/09/19 04/09/19 Gabapentin [Neurontin] 300 mg PO HS 04/09/19 04/09/19 Insulin Regular, Human [NovoLIN R] 10 unit SQ HS 04/09/19 04/09/19 Insulin Regular, Human [NovoLIN R] 12 unit SQ AC-BID 04/09/19 04/09/19 Insulin Regular, Human [NovoLIN R] 20 unit SQ AC-LUNCH 04/09/19 04/09/19 Ipratropium Nebulized [Atrovent 0.5 mg INHALATION RT-QID PRN 04/09/19 04/09/19 Nebulized 0.2 MG/ML] Magnesium Citrate 1,000 mg PO HS 04/09/19 04/09/19 Multivitamin/Iron/Folic Acid 1 tab PO DAILY 04/09/19 04/09/19 [Centrum Adults Tablet] Pramipexole Di-HCl [Mirapex] 1.5 mg PO BID@0700,1200 04/09/19 04/09/19 Spironolactone [Aldactone] 50 mg PO DAILY PRN 04/09/19 04/09/19 metFORMIN HCL 1,000 mg PO BID 04/09/19 04/09/19 traMADol HCL [Ultram] 50 mg PO Q8H PRN 04/09/19 04/09/19 Previous Rx's Medication Instructions Recorded Budesonide-Formot 160-4.5 Mcg 2 puff INHALATION RT-BID puff 08/05/17 [Symbicort 160-4.5 Mcg Inhaler] Cephalexin [Keflex] 500 mg PO Q6HR 10 Days #40 cap 04/29/19 Allergies Allergy/AdvReac Type Severity Reaction Status Date / Time erythromycin base Allergy Unknown Rash/Hives Verified 04/09/19 07:28 [Erythromycin Base] metoclopramide HCl Allergy Unknown Rash/Hives Verified 04/09/19 07:28 [From Reglan] Sulfa (Sulfonamide Allergy Unknown Rash/Hives Verified 04/09/19 07:28 Antibiotics) Review of Systems ROS Statement: Those systems with pertinent positive or pertinent negative responses have been documented in the HPI. ROS Other: All systems not noted in ROS Statement are negative. Constitutional: Denies: fever, chills, weakness Eyes: Denies: vision change Respiratory: Denies: cough, dyspnea Cardiovascular: Denies: chest pain, palpitations, edema, syncope Gastrointestinal: Denies: abdominal pain, nausea, vomiting Musculoskeletal: Reports: as per HPI, back pain Skin: Denies: rash Neurological: Reports: as per HPI, headache. 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 CELLULITIS LLE. aortic valve pb. Chronic back problems. 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 Last Myocardial Infarction Date:: unknown History of Any Multi-Drug Resistant Organisms: None Reported Past Surgical History: Back Surgery, Cholecystectomy, Heart Catheterization, Tubal Ligation Additional Past Surgical History / Comment(s): Bronchoscopies, cystoscopy , laminectomy total of 16 back sx including implanted pain stimulator, liver biopsy, cataract surgery , liver bx 2009 had ercp /stent in liver, skin ca removed. jonah carpal tunnel done ,heel spurs rt heel . thyroid bx(nodule) RING FINGER RIGHT HAND RIGHT. Colonoscopy 2009(2nd), disc fusion Past Anesthesia/Blood Transfusion Reactions: Motion Sickness Additional Past Anesthesia/Blood Transfusion Reaction / Comment(s): Claustrophobia. No history of blood transfusions. Patient was adopted, No know family HX. Past Psychological History: Anxiety, Depression Smoking Status: Never smoker Past Alcohol Use History: None Reported Past Drug Use History: None Reported - Past Family History Father History Unknown: Yes Additional Family Medical History / Comment(s): was adopted Mother History Unknown: Yes Family Medical History: Cancer Additional Family Medical History / Comment(s): GRANDFATHER HAD COLON CA. An aunt had breast cancer. General Exam General appearance: alert, in no apparent distress Head exam: Present: atraumatic, normocephalic Eye exam: Present: normal appearance. Absent: scleral icterus, conjunctival injection ENT exam: Present: mucous membranes dry Neck exam: Present: normal inspection, full ROM. Absent: tenderness Respiratory exam: Present: normal lung sounds bilaterally. Absent: respiratory distress, wheezes, rales, rhonchi, stridor, chest wall tenderness Cardiovascular Exam: Present: regular rate, normal rhythm, normal heart sounds. Absent: systolic murmur, diastolic murmur, rubs, gallop GI/Abdominal exam: Present: soft. Absent: distended, tenderness, guarding, rebound, rigid, mass Extremities exam: Present: normal inspection, normal capillary refill. Absent: pedal edema, calf tenderness Back exam: Present: normal inspection, vertebral tenderness. Absent: CVA tenderness (R), CVA tenderness (L) Neurological exam: Present: alert, oriented X3. Absent: motor sensory deficit Skin exam: Present: warm, dry, intact, normal color. Absent: rash Course Vital Signs 05/16/19 05/16/19 01:15 01:20 Temperature 98.1 F Pulse Rate 92 82 Respiratory 18 18 Rate Blood Pressure 144/68 116/59 O2 Sat by Pulse 98 96 Oximetry Medical Decision Making - Medical Decision Making Discussed the results with patient, including the hyperglycemia. The patient states that she had just eaten prior to the fall and that she had not taken her evening dose of hypoglycemic or insulin. She is declining to have treatment he re and states she will take that when she gets home. She has had relief of her symptoms with the analgesia here. - Lab Data Result diagrams: 05/16/19 01:28 05/16/19 01:28 Lab Results 05/16/19 05/16/19 Range/Units 01:28 01:28 WBC 5.9 (3.8-10.6) k/uL RBC 4.48 (3.80-5.40) m/uL Hgb 13.5 (11.4-16.0) gm/dL Hct 42.2 (34.0-46.0) % MCV 94.3 (80.0-100.0) fL MCH 30.2 (25.0-35.0) pg MCHC 32.0 (31.0-37.0) g/dL RDW 14.4 (11.5-15.5) % Plt Count 123 L (150-450) k/uL Neutrophils % 63 % Lymphocytes % 20 % Monocytes % 7 % Eosinophils % 7 % Basophils % 1 % Neutrophils # 3.7 (1.3-7.7) k/uL Lymphocytes # 1.2 (1.0-4.8) k/uL Monocytes # 0.4 (0-1.0) k/uL Eosinophils # 0.4 (0-0.7) k/uL Basophils # 0.1 (0-0.2) k/uL Sodium 139 (137-145) mmol/L Potassium 3.9 (3.5-5.1) mmol/L Chloride 104 (98-107) mmol/L Carbon Dioxide 30 (22-30) mmol/L Anion Gap 5 mmol/L BUN 19 H (7-17) mg/dL Creatinine 0.48 L (0.52-1.04) mg/dL Est GFR (CKD-EPI)AfAm >90 (>60 ml/min/1.73 sqM) Est GFR (CKD-EPI)NonAf >90 (>60 ml/min/1.73 sqM) Glucose 289 H (74-99) mg/dL Calcium 9.4 (8.4-10.2) mg/dL Disposition Clinical Impression: Fall, Head injury, Back pain, Hyperglycemia Disposition: HOME SELF-CARE Condition: Good Instructions (If sedation given, give patient instructions): Fall Prevention for Older Adults (ED), Head Injury (ED) Is patient prescribed a controlled substance at d/c from ED?: No Referrals: Harry Abel DO [Primary Care Provider] - 1-2 days
== END 2019-05-16 03:35 | disposition home or self-care (01) ==
LOC: EC 01:14
DX: S09.90XA Unspecified injury of head, initial encounter (principal); E11.65 Type 2 diabetes mellitus with hyperglycemia; M54.9 Dorsalgia, unspecified; R29.6 Repeated falls; Z91.14 Patient's other noncompliance with medication regimen; J44.9 Chronic obstructive pulmonary disease, unspecified; I25.10 Atherosclerotic heart disease of native coronary artery without angina pectoris; I11.0 Hypertensive heart disease with heart failure; I50.9 Heart failure, unspecified; K21.9 Gastro-esophageal reflux disease without esophagitis; H91.90 Unspecified hearing loss, unspecified ear; E78.5 Hyperlipidemia, unspecified; I25.2 Old myocardial infarction; M19.90 Unspecified osteoarthritis, unspecified site; E07.9 Disorder of thyroid, unspecified; F41.9 Anxiety disorder, unspecified; Z88.1 Allergy status to other antibiotic agents; Z88.2 Allergy status to sulfonamides; Z88.8 Allergy status to other drugs, medicaments and biological substances; Z79.4 Long term (current) use of insulin; Z79.52 Long term (current) use of systemic steroids; Z79.82 Long term (current) use of aspirin; Z79.899 Other long term (current) drug therapy; Z86.73 Personal history of transient ischemic attack (TIA), and cerebral infarction without residual deficits; Z87.01 Personal history of pneumonia (recurrent); Z85.828 Personal history of other malignant neoplasm of skin; Z98.890 Other specified postprocedural states; Z98.1 Arthrodesis status; W06.XXXA Fall from bed, initial encounter; Y93.89 Activity, other specified; Y92.009 Unspecified place in unspecified non-institutional (private) residence as the place of occurrence of the external cause; Z53.20 Procedure and treatment not carried out because of patient's decision for unspecified reasons
CPT/HCPCS: 36415; 80048; 85025; 72072; 72100; 72125; 70450; 99284; 96374; J2270

== ENCOUNTER → 2019-05-20 | Outpatient (CLI) | payer MEDICARE ==
--- NOTE | 2019-05-20 21:36 | MR ---
EXAMINATION TYPE: MR cervical spine wo con DATE OF EXAM: 05/20/2019 COMPARISON: None HISTORY: 74-year-old female spinal stenosis TECHNIQUE: Multiplanar, multisequence images of the cervical spine were acquired. FINDINGS: Technologist notes that the patient was moving and coughing throughout all sequences. There is significant degradation of image quality. There is some hypertrophy of the transverse ligament at the C1 level mild to moderately narrowing the spinal canal to 7.5 mm. Abutment and slight flattening of both the dorsal and ventral cord. Underlying postsurgical change of C3-C6 as well as posterior fusion at C2-C3. Grade 1 anterolisthesis at C7-T1 and T1-T2. There is moderate degenerative disc disease at the nonfus ed levels. At C2-C3, there is posterior disc bulge which contribute to mild spinal canal stenosis with AP canal dimension of 8.5 mm. No significant neuroforaminal stenosis appreciated. At C3-C4, no definite significant neuroforaminal stenosis or significant spinal canal stenosis. At C4-C5, bony hyperostotic changes likely contribute to mild bilateral neuroforaminal stenosis. No s jeanette canal stenosis. At C5-C6, bony hyperostotic changes may contribute to moderate bilateral neuroforaminal stenosis, lef t greater than right. No significant spinal canal stenosis. At C6/C7, very limited assessment of the neuroforamen. No significant neural foraminal stenosis appre ciated. Posterior disc osteophyte complex causes mild spinal canal stenosis. At C7/T1, posterior disc osteophyte complex with a facet and uncovertebral joint arthropathy with gra de 1 anterolisthesis. Mild right neuroforaminal stenosis and mild spinal canal stenosis. Unable to adequately assess for any cord signal abnormality due to the extensive artifacts. IMPRESSION: 1. Exam is markedly degraded as the patient was moving and coughing throughout all sequences. Unable to adequately assess for any cord signal abnormality. 2. Previous C3-C6 ACDF and posterior fusion from C2-C3. 3. Moderate degenerative disc disease at the nonfused levels. Scattered hyperostotic degenerative fabian nges. 4. Degenerative grade 1 anterolisthesis at C7-T1 and T1-T2. 5. Hypertrophy of the transverse ligament at the C1 level causing mild to moderate spinal canal steno sis with AP canal dimension of 7.5 mm. There is abutment and slight flattening of both the dorsal and ventral cord here. 6. Mild spinal canal stenosis at C2-C3, C6-C7, and C7-T1. Suspect moderate bilateral neuroforaminal s tenoses at C5-C6, left greater than right. Again, assessment is very limited.
== END | disposition home or self-care (01) ==
LOC: RADMRIMAIN 12:52
DX: M48.02 Spinal stenosis, cervical region (principal); M50.30 Other cervical disc degeneration, unspecified cervical region; M43.13 Spondylolisthesis, cervicothoracic region; M47.812 Spondylosis without myelopathy or radiculopathy, cervical region; Z98.1 Arthrodesis status
CPT/HCPCS: 72141

== ENCOUNTER 2019-05-27 17:20 | Inpatient (IN) | payer MEDICARE, OTHER ==
[2019-05-27] MEDS ORDERED: methylPREDNISolone SOD SUCCI 125 MG/2 ML VIAL IV STA (18:10)
[2019-05-27] MEDS ORDERED: ALBUTEROL NEBULIZED 2.5 MG/3 ML INHALATION STA (18:10)
[2019-05-27] MEDS ORDERED: IPRATROPIUM 0.5 MG/2.5 ML NEBU INHALATION STA (18:10)
--- NOTE | 2019-05-27 18:13 | ED ---
General Adult HPI - General Chief complaint: Shortness of Breath Stated complaint: KIRA Time Seen by Provider: 05/27/19 17:25 Source: patient, RN notes reviewed, old records reviewed Mode of arrival: wheelchair Limitations: no limitations - History of Present Illness Initial comments: This is a 74-year-old female presents emergency department complaining of difficulty breathing. Patient states she has a past medical history significant for COPD and sarcoidosis. Patient states she's had difficulty breathing for a while but got worse this morning. Patient states she is coughing quite a bit very short of breath but she's not coughing up any sputum. Patient does any fever chills. Patient denies any chest pain or palpitations. Patient denies any back pain. Patient denies abdominal pain. Patient denies increased swelling to her legs though she has chronic cellulitis. Patient denies any calf tenderness. - Related Data Home Medications Medication Instructions Recorded Confirmed Aspirin 81 mg PO DAILY 06/24/15 04/09/19 Atorvastatin [Lipitor] 40 mg PO HS 06/24/15 04/09/19 Cholecalciferol [Vitamin D3 (25 5,000 unit PO QAM 06/24/15 04/09/19 Mcg = 1000 Iu)] predniSONE 5 mg PO DAILY 10/18/16 04/09/19 Metoprolol Succinate [Toprol XL] 25 mg PO DAILY 02/10/17 04/09/19 Alendronate Sodium [Fosamax] 70 mg PO CURRY 06/14/17 04/09/19 Albuterol Sulfate [Proventil Hfa] 1 - 2 puff INHALATION RT-Q6H PRN 08/16/17 04/09/19 Cetirizine HCl [Zyrtec] 10 mg PO HS 10/08/17 04/09/19 Furosemide [Lasix] 40 mg PO BID PRN 12/24/17 04/09/19 Cefuroxime Axetil [Ceftin] 500 mg PO BID 04/09/19 04/09/19 Gabapentin [Neurontin] 300 mg PO HS 04/09/19 04/09/19 Insulin Regular, Human [NovoLIN R] 10 unit SQ HS 04/09/19 04/09/19 Insulin Regular, Human [NovoLIN R] 12 unit SQ AC-BID 04/09/19 04/09/19 Insulin Regular, Human [NovoLIN R] 20 unit SQ AC-LUNCH 04/09/19 04/09/19 Ipratropium Nebulized [Atrovent 0.5 mg INHALATION RT-QID PRN 04/09/19 04/09/19 Nebulized 0.2 MG/ML] Magnesium Citrate 1,000 mg PO HS 04/09/19 04/09/19 Multivitamin/Iron/Folic Acid 1 tab PO DAILY 04/09/19 04/09/19 [Centrum Adults Tablet] Pramipexole Di-HCl [Mirapex] 1.5 mg PO BID@0700,1200 04/09/19 04/09/19 Spironolactone [Aldactone] 50 mg PO DAILY PRN 04/09/19 04/09/19 metFORMIN HCL 1,000 mg PO BID 04/09/19 04/09/19 traMADol HCL [Ultram] 50 mg PO Q8H PRN 04/09/19 04/09/19 Previous Rx's Medication Instructions Recorded Budesonide-Formot 160-4.5 Mcg 2 puff INHALATION RT-BID puff 08/05/17 [Symbicort 160-4.5 Mcg Inhaler] Cephalexin [Keflex] 500 mg PO Q6HR 10 Days #40 cap 04/29/19 Allergies Allergy/AdvReac Type Severity Reaction Status Date / Time erythromycin base Allergy Unknown Rash/Hives Verified 05/27/19 17:26 [Erythromycin Base] metoclopramide HCl Allergy Unknown Rash/Hives Verified 05/27/19 17:26 [From Reglan] Sulfa (Sulfonamide Allergy Unknown Rash/Hives Verified 05/27/19 17:26 Antibiotics) Review of Systems ROS Statement: Those systems with pertinent positive or pertinent negative responses have been documented in the HPI. ROS Other: All systems not noted in ROS Statement are negative. 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 CELLULITIS LLE. aortic valve pb. Chronic back problems. 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 Last Myocardial Infarction Date:: unknown History of Any Multi-Drug Resistant Organisms: None Reported Past Surgical History: Back Surgery, Cholecystectomy, Heart Catheterization, Tubal Ligation Additional Past Surgical History / Comment(s): Bronchoscopies, cystoscopy , laminectomy total of 16 back sx including implanted pain stimulator, liver biopsy, cataract surgery , liver bx 2008 had ercp /stent in liver, skin ca removed. jonah carpal tunnel done ,heel spurs rt heel . thyroid bx(nodule) RING FINGER RIGHT HAND RIGHT. Colonoscopy 2008(2nd), disc fusion Past Anesthesia/Blood Transfusion Reactions: Motion Sickness Additional Past Anesthesia/Blood Transfusion Reaction / Comment(s): Claustrophobia. No history of blood transfusions. Patient was adopted, No know family HX. Past Psychological History: Anxiety, Depression Smoking Status: Never smoker Past Alcohol Use History: None Reported Past Drug Use History: None Reported - Past Family History Father History Unknown: Yes Additional Family Medical History / Comment(s): was adopted Mother History Unknown: Yes Family Medical History: Cancer Additional Family Medical History / Comment(s): GRANDFATHER HAD COLON CA. An aunt had breast cancer. General Exam - General Exam Comments Initial Comments: GENERAL: Patient is well-developed and well-nourished. Patient is nontoxic and well- hydrated and is in moderate distress. ENT: Neck is soft and supple. No significant lymphadenopathy is noted. Oropharynx is clear. Moist mucous membranes. Neck has full range of motion without eliciting any pain. EYES: The sclera were anicteric and conjunctiva were pink and moist. Extraocular movements were intact and pupils were equal round and reactive to light. Eyelids were unremarkable. PULMONARY: Patient has crackles in the bases bilaterally. Patient has diminished breath sounds as well. CARDIOVASCULAR: There is a regular rate and rhythm without any murmurs gallops or rubs. ABDOMEN: Soft and nontender with normal bowel sounds. SKIN: Skin is clear with no lesions or rashes and otherwise unremarkable. NEUROLOGIC: Patient is alert and oriented x3. Cranial nerves II through XII are grossly intact. Motor and sensory are also intact. Normal speech, volume and content. Symmetrical smile. MUSCULOSKELETAL: Normal extremities with adequate strength and full range of motion. Patient has chronic cellulitis bilaterally. No calf tenderness. LYMPHATICS: No significant lymphadenopathy is noted PSYCHIATRIC: Normal psychiatric evaluation. Limitations: no limitations Course Vital Signs 05/27/19 05/27/19 05/27/19 17:24 18:54 19:11 Temperature 98.2 F Pulse Rate 104 H 88 90 Respiratory 26 H Rate Blood Pressure 123/71 O2 Sat by Pulse 96 Oximetry 05/27/19 20:05 Temperature Pulse Rate 105 H Respiratory 18 Rate Blood Pressure 132/62 O2 Sat by Pulse 96 Oximetry Medical Decision Making - Medical Decision Making EKG shows normal sinus rhythm at 89 bpm CO interval 156 QRS is 102 QT interval 44 QTC is 491. Patient's EKG showed Q-wave in leads V1 through V4. Patient has no ST segment elevation or depression Chest x-ray shows acute pulmonary edema I started the patient Lasix and Nitropaste. I spoke with Dr. Webster agreed to admit the patient admitted the patient I wrote admitting orders. Lactic acid is elevated. I do not believe it is from a infectious cause at this time. Probably due to hypoperfusion - Lab Data Result diagrams: 05/27/19 18:30 05/27/19 18:30 Lab Results 05/27/19 05/27/19 05/27/19 Range/Units 17:26 18:30 18:30 WBC 6.1 (3.8-10.6) k/uL RBC 4.10 (3.80-5.40) m/uL Hgb 13.0 (11.4-16.0) gm/dL Hct 40.0 (34.0-46.0) % MCV 97.4 (80.0-100.0) fL MCH 31.8 (25.0-35.0) pg MCHC 32.7 (31.0-37.0) g/dL RDW 14.7 (11.5-15.5) % Plt Count 134 L (150-450) k/uL Neutrophils % 75 % Lymphocytes % 13 % Monocytes % 6 % Eosinophils % 3 % Basophils % 1 % Neutrophils # 4.6 (1.3-7.7) k/uL Lymphocytes # 0.8 L (1.0-4.8) k/uL Monocytes # 0.3 (0-1.0) k/uL Eosinophils # 0.2 (0-0.7) k/uL Basophils # 0.1 (0-0.2) k/uL PT (9.0-12.0) sec INR (<1.2) APTT (22.0-30.0) sec Sodium 135 L (137-145) mmol/L Potassium 4.2 (3.5-5.1) mmol/L Chloride 104 (98-107) mmol/L Carbon Dioxide 21 L (22-30) mmol/L Anion Gap 10 mmol/L BUN 20 H (7-17) mg/dL Creatinine 0.50 L (0.52-1.04) mg/dL Est GFR (CKD-EPI)AfAm >90 (>60 ml/min/1.73 sqM) Est GFR (CKD-EPI)NonAf >90 (>60 ml/min/1.73 sqM) Glucose 312 H (74-99) mg/dL Plasma Lactic Acid Eddie (0.7-2.0) mmol/L Calcium 9.3 (8.4-10.2) mg/dL Magnesium 1.9 (1.6-2.3) mg/dL Total Bilirubin 1.0 (0.2-1.3) mg/dL AST 39 H (14-36) U/L ALT 26 (4-34) U/L Alkaline Phosphatase 130 H (38-126) U/L Troponin I (0.000-0.034) ng/mL NT-Pro-B Natriuret Pep pg/mL Total Protein 6.1 L (6.3-8.2) g/dL Albumin 3.2 L (3.5-5.0) g/dL Influenza Type A RNA Not Detected (Not Detectd) Influenza Type B (PCR) Not Detected (Not Detectd) 05/27/19 05/27/19 05/27/19 Range/Units 18:30 18:30 18:30 WBC (3.8-10.6) k/uL RBC (3.80-5.40) m/uL Hgb (11.4-16.0) gm/dL Hct (34.0-46.0) % MCV (80.0-100.0) fL MCH (25.0-35.0) pg MCHC (31.0-37.0) g/dL RDW (11.5-15.5) % Plt Count (150-450) k/uL Neutrophils % % Lymphocytes % % Monocytes % % Eosinophils % % Basophils % % Neutrophils # (1.3-7.7) k/uL Lymphocytes # (1.0-4.8) k/uL Monocytes # (0-1.0) k/uL Eosinophils # (0-0.7) k/uL Basophils # (0-0.2) k/uL PT 10.7 (9.0-12.0) sec INR 1.0 (<1.2) APTT 22.7 (22.0-30.0) sec Sodium (137-145) mmol/L Potassium (3.5-5.1) mmol/L Chloride (98-107) mmol/L Carbon Dioxide (22-30) mmol/L Anion Gap mmol/L BUN (7-17) mg/dL Creatinine (0.52-1.04) mg/dL Est GFR (CKD-EPI)AfAm (>60 ml/min/1.73 sqM) Est GFR (CKD-EPI)NonAf (>60 ml/min/1.73 sqM) Glucose (74-99) mg/dL Plasma Lactic Acid Eddie 5.0 H* (0.7-2.0) mmol/L Calcium (8.4-10.2) mg/dL Magnesium (1.6-2.3) mg/dL Total Bilirubin (0.2-1.3) mg/dL AST (14-36) U/L ALT (4-34) U/L Alkaline Phosphatase (38-126) U/L Troponin I <0.012 (0.000-0.034) ng/mL NT-Pro-B Natriuret Pep pg/mL Total Protein (6.3-8.2) g/dL Albumin (3.5-5.0) g/dL Influenza Type A RNA (Not Detectd) Influenza Type B (PCR) (Not Detectd) 05/27/19 Range/Units 18:30 WBC (3.8-10.6) k/uL RBC (3.80-5.40) m/uL Hgb (11.4-16.0) gm/dL Hct (34.0-46.0) % MCV (80.0-100.0) fL MCH (25.0-35.0) pg MCHC (31.0-37.0) g/dL RDW (11.5-15.5) % Plt Count (150-450) k/uL Neutrophils % % Lymphocytes % % Monocytes % % Eosinophils % % Basophils % % Neutrophils # (1.3-7.7) k/uL Lymphocytes # (1.0-4.8) k/uL Monocytes # (0-1.0) k/uL Eosinophils # (0-0.7) k/uL Basophils # (0-0.2) k/uL PT (9.0-12.0) sec INR (<1.2) APTT (22.0-30.0) sec Sodium (137-145) mmol/L Potassium (3.5-5.1) mmol/L Chloride (98-107) mmol/L Carbon Dioxide (22-30) mmol/L Anion Gap mmol/L BUN (7-17) mg/dL Creatinine (0.52-1.04) mg/dL Est GFR (CKD-EPI)AfAm (>60 ml/min/1.73 sqM) Est GFR (CKD-EPI)NonAf (>60 ml/min/1.73 sqM) Glucose (74-99) mg/dL Plasma Lactic Acid Eddie (0.7-2.0) mmol/L Calcium (8.4-10.2) mg/dL Magnesium (1.6-2.3) mg/dL Total Bilirubin (0.2-1.3) mg/dL AST (14-36) U/L ALT (4-34) U/L Alkaline Phosphatase (38-126) U/L Troponin I (0.000-0.034) ng/mL NT-Pro-B Natriuret Pep 158 pg/mL Total Protein (6.3-8.2) g/dL Albumin (3.5-5.0) g/dL Influenza Type A RNA (Not Detectd) Influenza Type B (PCR) (Not Detectd) Critical Care Time Critical Care Time: Yes Total Critical Care Time: 35 Disposition Clinical Impression: Acute pulmonary edema Disposition: ADMITTED IP TO THIS HOSP Referrals: Harry Abel DO [Primary Care Provider] - 1-2 days Time of Disposition: 20:15
[2019-05-27 18:44] LABS: Basophils # (A) 0.1 k/uL (0-0.2); Basophils % (A) 1 %; Eosinophils # (A) 0.2 k/uL (0-0.7); Eosinophils % (A) 3 %; Lymphocytes # (A) 0.8 k/uL (1.0-4.8); Lymphocytes % (A) 13 %; MCH 31.8 pg (25.0-35.0); MCHC 32.7 g/dL (31.0-37.0); MCV 97.4 fL (80.0-100.0); Mean Platelet Volume 7.7; Monocytes # (A) 0.3 k/uL (0-1.0); Monocytes % (A) 6 %; Neutrophils # (A) 4.6 k/uL (1.3-7.7); Neutrophils % (A) 75 %; Platelet Count 134 k/uL (150-450); RDW 14.7 % (11.5-15.5); WBC 6.1 k/uL (3.8-10.6)
[2019-05-27 18:55] LABS: ALT 26 U/L (4-34); AST 39 U/L (14-36); African American GFR (CKD) >90 (>60 ml/min/1.73 sqM); Albumin 3.2 g/dL (3.5-5.0); Alkaline Phosphatase 130 U/L (38-126); Anion Gap 10 mmol/L; Blood Urea Nitrogen 20 mg/dL (7-17); Calcium 9.3 mg/dL (8.4-10.2); Carbon Dioxide 21 mmol/L (22-30); Chloride 104 mmol/L (98-107); Glucose 312 mg/dL (74-99); Magnesium 1.9 mg/dL (1.6-2.3); Non-African American GFR(CKD) >90 (>60 ml/min/1.73 sqM); Potassium 4.2 mmol/L (3.5-5.1); Sodium 135 mmol/L (137-145); Total Protein 6.1 g/dL (6.3-8.2)
[2019-05-27 18:59] LABS: Partial Thromboplastin Time 22.7 sec (22.0-30.0); Prothrombin Time 10.7 sec (9.0-12.0)
--- NOTE | 2019-05-27 19:40 | XR ---
EXAMINATION TYPE: XR chest 2V DATE OF EXAM: 05/27/2019 COMPARISON: 10/08/2017 HISTORY: Difficulty breathing TECHNIQUE: 2 views FINDINGS: There is pulmonary edema. Heart appears slightly enlarged. There is mild blunting of the co stophrenic angles. There are chest leads.. IMPRESSION: There is some pulmonary edema that is increased compared to old exam and consistent conge stive heart failure. Small pleural effusions increased compared to old exam.
[2019-05-27] MEDS ORDERED: FUROSEMIDE 10 MG/ML 4 ML VIAL IV STA (19:54)
[2019-05-27] MEDS ORDERED: FUROSEMIDE 10 MG/ML 4 ML VIAL IV SCH (20:30)
[2019-05-27] MEDS: IPRATROPIUM-ALBUTEROL 3 ML NEB INHALATION SCH (23:15)
[2019-05-28] MEDS: NITROGLYCERIN OINT 1 INCH/GM PACKET TOPICAL SCH ×5 (00:58→21:50)
[2019-05-28] MEDS: FUROSEMIDE 10 MG/ML 4 ML VIAL IV SCH ×3 (00:58→15:36)
[2019-05-28] MEDS: methylPREDNISolone SOD SUCCI 125 MG/2 ML VIAL IV SCH ×3 (00:58→11:09)
[2019-05-28] MEDS: IPRATROPIUM-ALBUTEROL 3 ML NEB INHALATION SCH ×6 (02:40→23:04)
[2019-05-28 06:35] LABS: Glucose,Whole Blood 471 mg/dL (75-99)
[2019-05-28] MEDS: INSULIN ASPART (NovoLOG) 100 UNIT/ML VIAL SQ SCH ×3 (08:57→18:05)
[2019-05-28] MEDS: LISINOPRIL 5 MG TAB PO SCH (09:06)
[2019-05-28] MEDS: METOPROLOL TARTRATE 25 MG TAB PO SCH (09:06)
[2019-05-28 10:02] LABS: Basophils % (A) 0 %; Eosinophils % (A) 0 %; HCT 41.4 % (34.0-46.0); HGB 12.7 gm/dL (11.4-16.0); Hypochromasia Slight; Lymphocytes # (A) 0.2 k/uL (1.0-4.8); Lymphocytes % (A) 3 %; MCH 30.8 pg (25.0-35.0); MCHC 30.8 g/dL (31.0-37.0); Macrocytosis Slight; Mean Platelet Volume 8.1; Monocytes # (A) 0.1 k/uL (0-1.0); Monocytes % (A) 1 %; Neutrophils # (A) 8.5 k/uL (1.3-7.7); Neutrophils % (A) 96 %; Platelet Count 130 k/uL (150-450); RBC 4.14 m/uL (3.80-5.40); RDW 14.5 % (11.5-15.5); WBC 8.8 k/uL (3.8-10.6)
[2019-05-28] MEDS ORDERED: SPIRONOLACTONE 25 MG TAB PO PRN (10:17)
--- NOTE | 2019-05-28 10:21 | CONS ---
CONSULTATION CHIEF COMPLAINT: Shortness of breath. Esme is a 74-year-old lady with history of aortic stenosis who is known to me from my outpatient practice, has history of COPD, dyslipidemia, insulin-requiring diabetes, who lost her recently, comes to hospital complaining of difficulty in breathing. She has history of COPD and sarcoidosis. She has been having cough without productive sputum for the last few weeks. She had been started on her initial presentation with IV Lasix and steroids to deal with the possibility of this being started diastolic heart failure and underlying COPD exacerbation. She has made some improvement since yesterday. Patient had a fall a few weeks ago and has ecchymosis on her face. PAST MEDICAL HISTORY: Significant for dyslipidemia, hypertension, diabetes. MEDICATIONS: At home include Ultram, Aldactone, metformin, nebulizers, Zyrtec, Lasix, Ceftin, atorvastatin, and Toprol-XL. ALLERGIES: The patient is allergic to SULFA, ERYTHROMYCIN. REVIEW OF SYSTEMS: HEENT: Unremarkable. CARDIAC: As described above. RESPIRATORY: As described above. GI: Negative. GENITOURINARY: Negative. ALLERGY/IMMUNOLOGY: Negative. SKIN: Negative. MUSCULOSKELETAL: Significant for arthritis. PSYCHOSOCIAL: Negative. ENDOCRINE: Negative. CONSTITUTIONAL: Negative. ONCOLOGICAL: Negative. BUSINESS DEVELOPMENT INTERN: Negative. The rest of the system review is not relevant. PAST SURGICAL HISTORY: Significant for implantation of the back stimulator, laminectomy, bronchoscopy, liver biopsy, carpal tunnel surgery, thyroid biopsy. PHYSICAL EXAM: Patient is comfortable at rest. Heart rate is 110 beats per minute, O2 saturation is 95%. Carotid upstroke is normal. I did not see any JVD. Chest exam reveals occasional rhonchi and diminished air entry. I do not hear any crackles. Heart exam reveals first and second heart sounds and ejection systolic murmur in the aortic area. Abdomen is soft. Exam of extremities did not reveal any edema. LABS: Show that the lactic acid is elevated . Potassium is 4.2, creatinine is 0.5. AST, ALT are within normal limits. BNP is normal. Troponin is normal. ASSESSMENT: 1. Shortness of breath due to a combination of acute exacerbation of chronic diastolic heart failure and bronchitis. 2. Aortic stenosis. PLAN: Patient will be treated with IV Lasix and Solu-Medrol that she is currently on. I will assess the underlying aortic stenosis. MMODL / IJN: [id number] /
[2019-05-28 10:49] LABS: African American GFR (CKD) >90 (>60 ml/min/1.73 sqM); Anion Gap 15 mmol/L; Blood Urea Nitrogen 28 mg/dL (7-17); Calcium 9.2 mg/dL (8.4-10.2); Carbon Dioxide 17 mmol/L (22-30); Chloride 103 mmol/L (98-107); Non-African American GFR(CKD) >90 (>60 ml/min/1.73 sqM); Potassium 4.6 mmol/L (3.5-5.1); Sodium 135 mmol/L (137-145)
[2019-05-28] MEDS ORDERED: INSULIN DETEMIR (LEVEMIR) 100 UNIT/ML SYR SQ SCH (11:00)
[2019-05-28 11:03] LABS: Glucose 541 mg/dL (74-99)
[2019-05-28] MEDS: SYMBICORT 160-4.5 MCG INHALER INHALATION SCH ×2 (11:06→19:33)
[2019-05-28] MEDS: metFORMIN 500 MG TAB PO SCH ×2 (11:10→21:50)
[2019-05-28] MEDS: PRAMIPEXOLE 0.5 MG TAB PO SCH (11:10)
[2019-05-28] MEDS: ASPIRIN 81 MG PO SCH (11:10)
[2019-05-28 11:56] LABS: Glucose,Whole Blood 451 mg/dL (75-99)
[2019-05-28] MEDS ORDERED: INSULIN ASPART (NovoLOG) 100 UNIT/ML VIAL SQ ONE (13:44)
--- NOTE | 2019-05-28 14:17 | P.CNPUL ---
History of Present Illness Consult date: 05/28/19 Requesting physician: Ronan Webster Reason for consult: dyspnea, other (Acute congestive heart failure) Chief complaint: Shortness of breath History of present illness: This is a 74-year-old female with history of pulmonary sarcoidosis, chronic obstructive pulmonary disease related to sarcoidosis as well as restrictive lung disease. Patient is also known to have history of aortic stenosis, presented to the ER with mostly few days history of shortness of breath, cough, occasional wheezing, cough is nonproductive. Denies any fever no chills no hemoptysis no chest pain. Patient had a chest x-ray in the ER, showed interstitial lung disease, pulmonary fibrosis, possibility of underlying congestive heart failure is not entirely ruled out. But the patient had a normal BNP level. Her lactic acid on admission was as high as 6.2. Blood sugar was also noted to be extremely elevated on admission as high as 541 this morning. Her chest x-ray on this admission is not much different from the chest x-ray done on 10/08/2017. May be slightly worse. Patient was admitted, placed on diuretics, steroids, and I was asked to see her on consultation. Patient is actually an overflow in the intensive care unit. Describes mostly nonproductive cough, shortness of breath upon any activity, and she is normally maintained on 5 mg of prednisone for his underlying sarcoidosis. Her sarcoidosis used to be quite severe at one point, and it was involving her spinal cord. At one point she is to be on very high doses of prednisone. Review of Systems Constitutional: Patient denies any fever or chills . No generalized weakness or weight loss. Abdomen: Patient denied nausea vomiting and diarrhea and abdominal pain. Cardiovascular: Mostly symptoms of shortness of breath Respiratory: Cough with minimal sputum production and shortness of breath Neurologic: Patient denied any numbness or tingling headache. Musculoskeletal: Patient has chronic back pain. Mostly affecting her cervical spine Skin: Negative Psychiatric: Negative Endocrine: No heat or cold intolerance. No recent weight gain. Genitourinary: No dysuria or hematuria. 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 CELLULITIS LLE. aortic valve pb. Chronic back problems. 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 Last Myocardial Infarction Date:: unknown History of Any Multi-Drug Resistant Organisms: None Reported Past Surgical History: Back Surgery, Cholecystectomy, Heart Catheterization, Tubal Ligation Additional Past Surgical History / Comment(s): Bronchoscopies, cystoscopy , laminectomy total of 16 back sx including implanted pain stimulator, liver biopsy, cataract surgery , liver bx 2008 had ercp /stent in liver, skin ca removed. jonah carpal tunnel done ,heel spurs rt heel . thyroid bx(nodule) RING FINGER RIGHT HAND RIGHT. Colonoscopy 2008(2nd), disc fusion Past Anesthesia/Blood Transfusion Reactions: Motion Sickness Additional Past Anesthesia/Blood Transfusion Reaction / Comment(s): Claustrophobia. No history of blood transfusions. Patient was adopted, No know family HX. Past Psychological History: Anxiety, Depression Additional Psychological History / Comment(s): Pt lives alone with 1 dog in one level home 2 steps into home. recently . Has cane/walker, shower chair, nebulizer at home. Currently no outside services. Smoking Status: Never smoker Past Alcohol Use History: None Reported Past Drug Use History: None Reported - Past Family History Father History Unknown: Yes Additional Family Medical History / Comment(s): was adopted Mother History Unknown: Yes Family Medical History: Cancer Additional Family Medical History / Comment(s): GRANDFATHER HAD COLON CA. An aunt had breast cancer. Medications and Allergies Home Medications Medication Instructions Recorded Confirmed Type Aspirin 81 mg PO DAILY 06/24/15 05/27/19 History Cholecalciferol [Vitamin D3 (25 5,000 unit PO DAILY 06/24/15 05/27/19 History Mcg = 1000 Iu)] predniSONE 5 mg PO DAILY 10/18/16 05/27/19 History Metoprolol Succinate [Toprol XL] 25 mg PO DAILY 02/10/17 05/27/19 History Alendronate Sodium [Fosamax] 70 mg PO CURRY 06/14/17 05/27/19 History Budesonide-Formot 160-4.5 Mcg 2 puff INHALATION RT-BID puff 08/05/17 05/27/19 Rx [Symbicort 160-4.5 Mcg Inhaler] Cetirizine HCl [Zyrtec] 10 mg PO HS 10/08/17 05/27/19 History Gabapentin [Neurontin] 300 mg PO HS 04/09/19 05/27/19 History Insulin Regular, Human [NovoLIN R] 10 unit SQ HS 04/09/19 05/27/19 History Insulin Regular, Human [NovoLIN R] 12 unit SQ AC-BID@0800,1800 04/09/19 05/27/19 History Insulin Regular, Human [NovoLIN R] 24 unit SQ AC-LUNCH@1200 04/09/19 05/27/19 History Magnesium Citrate 1,000 mg PO HS 04/09/19 05/27/19 History Multivitamin/Iron/Folic Acid 1 tab PO DAILY 04/09/19 05/27/19 History [Centrum Adults Tablet] Pramipexole Di-HCl [Mirapex] 1.5 mg PO AC-BID@0700,1200 04/09/19 05/27/19 History Spironolactone [Aldactone] 50 mg PO DAILY PRN 04/09/19 05/27/19 History metFORMIN HCL 1,000 mg PO BID 04/09/19 05/27/19 History Albuterol Sulfate [Ventolin HFA] 2 puff INHALATION RT-QID PRN 05/27/19 05/27/19 History Furosemide [Lasix] 40 mg PO BID PRN 05/27/19 05/27/19 History Insulin NPH Human Isophane 24 units SQ HS 05/27/19 05/27/19 History [NovoLIN N] Ipratropium-Albuterol Nebulize 3 ml INHALATION RT-QID PRN 05/27/19 05/27/19 History [Duoneb 0.5 mg-3 mg/3 ml Soln] Magnesium Citrate 1000mg 1,000 mg PO HS 05/27/19 05/27/19 History Allergies Allergy/AdvReac Type Severity Reaction Status Date / Time erythromycin base Allergy Unknown Rash/Hives Verified 05/27/19 21:29 [Erythromycin Base] metoclopramide HCl Allergy Unknown Rash/Hives Verified 05/27/19 21:29 [From Reglan] Sulfa (Sulfonamide Allergy Unknown Rash/Hives Verified 05/27/19 21:29 Antibiotics) Physical Exam Vitals: Vital Signs Temp Pulse Pulse Resp BP BP Pulse Ox 05/28/19 12:00 98.2 F 98 21 97/52 96 05/28/19 11:15 99 05/28/19 11:03 96 05/28/19 11:00 98 22 128/60 95 05/28/19 10:00 104 H 26 H 05/28/19 09:00 114 H 17 95 05/28/19 08:00 98.5 F 112 H 19 133/78 96 05/28/19 07:53 111 H 05/28/19 07:44 112 H 95 05/28/19 07:00 114 H 10 L 147/66 05/28/19 06:00 117 H 19 97 05/28/19 05:00 101 H 33 H 95 05/28/19 04:00 103 H 20 128/62 97 05/28/19 03:20 98 F 102 H 18 128/62 96 05/28/19 03:00 101 H 18 145/57 96 05/28/19 02:50 98 05/28/19 02:41 98 05/28/19 02:00 96 17 145/57 97 05/28/19 01:00 98 17 145/57 97 05/28/19 00:50 97.9 F 99 20 145/57 97 05/28/19 00:00 94 19 110/52 05/27/19 23:23 93 05/27/19 23:16 96 05/27/19 23:00 92 17 110/52 96 05/27/19 22:17 95 27 H 132/62 95 05/27/19 20:05 105 H 18 132/62 96 05/27/19 19:11 90 05/27/19 18:54 88 05/27/19 17:24 98.2 F 104 H 26 H 123/71 96 Intake and Output 05/27/19 05/28/19 05/28/19 22:59 06:59 14:59 Intake Total 360 Output Total 950 Balance -590 Intake: Oral 360 Output: Urine 950 Other: Voiding Method Indwelling Catheter Weight 88.451 kg GENERAL: Physical exam revealed a 74-year-old female in no distress. ENT: Neck is soft and supple. No significant lymphadenopathy is noted. Oropharynx is clear. No neck masses, no JVD, no stridor. Areas of ecchymosis noted in the facial area related to recent fall and trauma. EYES: The sclera were anicteric PERRLA, EOMI. PULMONARY: Patient has crackles in the bases bilaterally. Patient has diminished breath sounds as well. Symmetrical chest expansion. CARDIOVASCULAR: There is a regular rate and rhythm 2/6 systolic murmur thought the precordium. Mostly over the aortic area. ABDOMEN: Soft and nontender with normal bowel sounds. No megaly no rebound no guarding. SKIN: Skin is clear with no lesions or rashes and otherwise unremarkable. Chronic venous stasis changes noted in lower extremities. NEUROLOGIC: Patient is alert and oriented x3. No gross focal neurologic deficits. MUSCULOSKELETAL: Normal extremities with adequate strength and full range of motion. Chronic venous stasis changes noted in lower extremities. LYMPHATICS: No significant lymphadenopathy is noted PSYCHIATRIC: Normal mood, affect and normal mental status examination. Results - Laboratory Findings CBC and BMP: 05/28/19 09:28 05/28/19 09:28 PT/INR, D-dimer PT 10.7 sec (9.0-12.0) 05/27/19 18:30 INR 1.0 (<1.2) 05/27/19 18:30 Abnormal lab findings: Abnormal Labs 05/27/19 05/27/19 05/27/19 18:30 18:30 18:30 MCHC Plt Count 134 L Neutrophils # Lymphocytes # 0.8 L Sodium 135 L Carbon Dioxide 21 L BUN 20 H Creatinine 0.50 L Glucose 312 H POC Glucose (mg/dL) Plasma Lactic Acid Eddie 5.0 H* AST 39 H Alkaline Phosphatase 130 H Total Protein 6.1 L Albumin 3.2 L 05/27/19 05/28/19 05/28/19 22:27 02:10 06:13 MCHC Plt Count Neutrophils # Lymphocytes # Sodium Carbon Dioxide BUN Creatinine Glucose POC Glucose (mg/dL) Plasma Lactic Acid Eddie 6.2 H* 5.7 H* 6.0 H* AST Alkaline Phosphatase Total Protein Albumin 05/28/19 05/28/19 05/28/19 06:33 09:28 09:28 MCHC 30.8 L Plt Count 130 L Neutrophils # 8.5 H Lymphocytes # 0.2 L Sodium 135 L Carbon Dioxide 17 L BUN 28 H Creatinine Glucose 541 H* POC Glucose (mg/dL) 471 H Plasma Lactic Acid Eddie AST Alkaline Phosphatase Total Protein Albumin 05/28/19 05/28/19 10:36 11:55 MCHC Plt Count Neutrophils # Lymphocytes # Sodium Carbon Dioxide BUN Creatinine Glucose POC Glucose (mg/dL) 451 H Plasma Lactic Acid Eddie 5.4 H* AST Alkaline Phosphatase Total Protein Albumin - Diagnostic Findings Chest x-ray: image reviewed (As noted in HPI.) Assessment and Plan Assessment: Impression: Shortness of breath secondary to acute on chronic diastolic congestive heart failure and secondary to interstitial lung disease secondary to sarcoidosis. History of severe aortic stenosis. Echocardiogram is pending History of COPD and restrictive lung disease, this is another contributing factor to her shortness of breath. History of coronary artery disease History of CVA Type 2 diabetes, poorly controlled blood sugars on this admission. GERD without esophagitis Benign essential hypertension Dyslipidemia History of nonalcoholic steatohepatitis. History of sarcoid related transverse myelitis History of tracheobronchomalacia. Recommendation: Continue present treatment plan including Diuretics. Bronchodilators. Steroids. Updrafts. Follow-up chest x-ray in a.m., May have to consider insulin drip for elevated blood sugar. Will follow closely. Prognosis is guarded Time with Patient: Greater than 30
[2019-05-28 14:47] VITALS: BMI 40.7
[2019-05-28] MEDS: methylPREDNISolone SOD SUCCI 40 MG/ML 1 ML VIAL IV SCH (15:36)
--- NOTE | 2019-05-28 15:57 | P.HPIM ---
History of Present Illness H&P Date: 05/28/19 Chief Complaint: Shortness of breath History of presenting complaint: This is a pleasant 74-year-old patient of Dr. Abel. 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 . Patient has been progressively getting more short of breath over about 4 weeks. Increasing number of cough. Dried. No phlegm. Wheezing. No fever or chills. Decreased appetite rather congestion of the chest. Tired rundown. Admitted with asthma exacerbation. Started on bronchodilator steroids. Review of systems: GEN.: Tired EYES: None HEENT: None NECK: None RESPIRATORY: As above CARDIOVASCULAR: None GASTROINTESTINAL: None GENITOURINARY: Urinary frequency] MUSCULOSKELETAL: Joint pains LYMPHATICS: None HEMATOLOGICAL: None PSYCHIATRY: None NEUROLOGICAL: None DERMATOLOGICAL: Dry skin and some chronic lower extremity redness Past medical history to include: Coronary artery disease, stroke, diabetes mellitus type 2, GERD hyperlipidemia, hypertension, Ary arthritis, PR, hypothyroid, sarcoidosis, tracheobronchomalacia, Sjogren syndrome, TAMIKA/transfers myelitis, nonalcoholic steatohepatitis, nephrolithiasis, osteoporosis, restless leg syndrome, anemia, diverticulosis, diabetes mellitus type II, hypertension, hyperlipidemia, hypothyroid, restless leg syndrome, CHF with diastolic dysfunction, moderate degree to aortic stenosis Social history: Recently , does not smoke or drink alcohol. Does have a walker and a cane Family history: patient is adopted Physical examination: VITAL SIGNS: [id number]/71-96% on room air GENERAL: BMI 40.8, laying in bed, short of breath at rest EYES: Pupils equal. Conjunctiva normal. HEENT: External appearance of nose and ears normal, oral cavity grossly normal. NECK: JVD not raised; masses not palpable. HEART: First and second heart sounds are normal; minimal edema. LUNGS: Respiratory rate increased, decreased breath sounds prolonged expiration and wheezing ABDOMEN: Soft, nontender, liver spleen not palpable, no masses palpable. PSYCH: Alert and oriented x3; mood and affect slightly anxious NEUROLOGICAL: Cranial nerves grossly intact; no facial asymmetry, power and se nsation grossly intact. LYMPHATICS: No lymph nodes palpable in the axilla and neck MUSCULOSKELETAL: Evidence of OA DERMATOLOGICAL: Dry skin lower extremity with some venous insufficiency INVESTIGATIONS, reviewed in the clinical context:: White count 6.1 hemoglobin 13 platelets 134 potassium 4.2 bun 20 creatinine 0.50 Lactic acid 5 proBNP 158 albumin 3.2 Influenza type A and type B both negative EKG tracing personally reviewed by me-poor R-wave progression, sinus rhythm Chest x-ray film personally reviewed by me-bilateral infiltrates Assessment: -Bilateral multilobar pneumonia -Coronary artery disease -Moderate persistent Asthma, with acute exacerbation -Diabetes mellitus type 2, chronically on insulin, uncontrolled with hyperglycemia -GERD -Hyperlipidemia -Essential hypertension -Primary osteoarthritis -Sjogren syndrome -Nonalcoholic steatohepatitis -Nephrolithiasis -Restless leg syndrome -Colonic Diverticulosis -Restless leg syndrome -Moderate aortic stenosis -Obesity BMI 40.8 Plan: We'll start the patient on IV ceftriaxone and Zithromax. Also IV steroids and bronchodilators. Home medications resumed. Lovenox for DVT prophylaxis. Sugars are running high we'll start the patient on IV insulin drip. Care was discussed with the patient. Questions were answered. Past Medical History Past Medical History: Asthma, Coronary Artery Disease (CAD), Cancer, Heart Failure, COPD, CVA/TIA, Diabetes Mellitus, GERD/Reflux, Hearing Disorder / Deafness, Hyperlipidemia, Hypertension, Liver Disease, Myocardial Infarction ([place]), Osteoarthritis ([place]), Pneumonia, Respiratory Disorder, Skin Disorder, Thyroid Disorder Additional Past Medical History / Comment(s): Sarcoidosis, sjogrens syndrome, 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, non- alcoholic steatohepatitis - HAS STENT, nephrolithiasis, osteoporosis,sciatica,RLS anemia,hx of TIA 2,thyroid nodule, diverticulosis, skin CA, tracheobronchomalacia, restless leg syndrome, moderate degree of aortic stenosis. CELLULITIS LLE. aortic valve pb. Chronic back problems. 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 Last Myocardial Infarction Date:: unknown History of Any Multi-Drug Resistant Organisms: None Reported Past Surgical History: Back Surgery, Cholecystectomy, Heart Catheterization, Tubal Ligation Additional Past Surgical History / Comment(s): Bronchoscopies, cystoscopy , laminectomy total of 16 back sx including implanted pain stimulator, liver biopsy, cataract surgery , liver bx 2008 had ercp /stent in liver, skin ca removed. jonah carpal tunnel done ,heel spurs rt heel . thyroid bx(nodule) RING FINGER RIGHT HAND RIGHT. Colonoscopy 2009(2nd), disc fusion Past Anesthesia/Blood Transfusion Reactions: Motion Sickness Additional Past Anesthesia/Blood Transfusion Reaction / Comment(s): Claustrophobia. No history of blood transfusions. Patient was adopted, No know family HX. Past Psychological History: Anxiety, Depression Additional Psychological History / Comment(s): Pt lives alone with 1 dog in one level home 2 steps into home. recently . Has cane/walker, shower chair, nebulizer at home. Currently no outside services. Smoking Status: Never smoker Past Alcohol Use History: None Reported Past Drug Use History: None Reported - Past Family History Father History Unknown: Yes Additional Family Medical History / Comment(s): was adopted Mother History Unknown: Yes Family Medical History: Cancer Additional Family Medical History / Comment(s): GRANDFATHER HAD COLON CA. An aunt had breast cancer. Medications and Allergies Home Medications Medication Instructions Recorded Confirmed Type Aspirin 81 mg PO DAILY 06/24/15 05/27/19 History Cholecalciferol [Vitamin D3 (25 5,000 unit PO DAILY 06/24/15 05/27/19 History Mcg = 1000 Iu)] predniSONE 5 mg PO DAILY 10/18/16 05/27/19 History Metoprolol Succinate [Toprol XL] 25 mg PO DAILY 02/10/17 05/27/19 History Alendronate Sodium [Fosamax] 70 mg PO CURRY 06/14/17 05/27/19 History Budesonide-Formot 160-4.5 Mcg 2 puff INHALATION RT-BID puff 08/05/17 05/27/19 Rx [Symbicort 160-4.5 Mcg Inhaler] Cetirizine HCl [Zyrtec] 10 mg PO HS 10/08/17 05/27/19 History Gabapentin [Neurontin] 300 mg PO HS 04/09/19 05/27/19 History Insulin Regular, Human [NovoLIN R] 10 unit SQ HS 04/09/19 05/27/19 History Insulin Regular, Human [NovoLIN R] 12 unit SQ AC-BID@0800,1800 04/09/19 05/27/19 History Insulin Regular, Human [NovoLIN R] 24 unit SQ AC-LUNCH@1200 04/09/19 05/27/19 History Magnesium Citrate 1,000 mg PO HS 04/09/19 05/27/19 History Multivitamin/Iron/Folic Acid 1 tab PO DAILY 04/09/19 05/27/19 History [Centrum Adults Tablet] Pramipexole Di-HCl [Mirapex] 1.5 mg PO AC-BID@0700,1200 04/09/19 05/27/19 History Spironolactone [Aldactone] 50 mg PO DAILY PRN 04/09/19 05/27/19 History metFORMIN HCL 1,000 mg PO BID 04/09/19 05/27/19 History Albuterol Sulfate [Ventolin HFA] 2 puff INHALATION RT-QID PRN 05/27/19 05/27/19 History Furosemide [Lasix] 40 mg PO BID PRN 05/27/19 05/27/19 History Insulin NPH Human Isophane 24 units SQ HS 05/27/19 05/27/19 History [NovoLIN N] Ipratropium-Albuterol Nebulize 3 ml INHALATION RT-QID PRN 05/27/19 05/27/19 History [Duoneb 0.5 mg-3 mg/3 ml Soln] Magnesium Citrate 1000mg 1,000 mg PO HS 05/27/19 05/27/19 History Allergies Allergy/AdvReac Type Severity Reaction Status Date / Time erythromycin base Allergy Unknown Rash/Hives Verified 05/27/19 21:29 [Erythromycin Base] metoclopramide HCl Allergy Unknown Rash/Hives Verified 05/27/19 21:29 [From Reglan] Sulfa (Sulfonamide Allergy Unknown Rash/Hives Verified 05/27/19 21:29 Antibiotics) Physical Exam Vitals: Vital Signs Temp Pulse Pulse Resp BP BP Pulse Ox 05/28/19 10:00 104 H 26 H 05/28/19 09:00 114 H 17 95 05/28/19 08:00 98.5 F 112 H 19 133/78 96 05/28/19 07:53 111 H 05/28/19 07:44 112 H 95 05/28/19 07:00 114 H 10 L 147/66 05/28/19 06:00 117 H 19 97 05/28/19 05:00 101 H 33 H 95 05/28/19 04:00 103 H 20 128/62 97 05/28/19 03:20 98 F 102 H 18 128/62 96 05/28/19 03:00 101 H 18 145/57 96 05/28/19 02:50 98 05/28/19 02:41 98 05/28/19 02:00 96 17 145/57 97 05/28/19 01:00 98 17 145/57 97 05/28/19 00:50 97.9 F 99 20 145/57 97 05/28/19 00:00 94 19 110/52 05/27/19 23:23 93 05/27/19 23:16 96 05/27/19 23:00 92 17 110/52 96 05/27/19 22:17 95 27 H 132/62 95 05/27/19 20:05 105 H 18 132/62 96 05/27/19 19:11 90 05/27/19 18:54 88 05/27/19 17:24 98.2 F 104 H 26 H 123/71 96 Intake and Output 05/27/19 05/28/19 05/28/19 22:59 06:59 14:59 Output Total 150 Balance -150 Output: Urine 150 Other: Weight 88.451 kg Results CBC & Chem 7: 05/28/19 09:28 05/28/19 09:28 Labs: Abnormal Lab Results - Last 24 Hours (Table) 05/27/19 05/27/19 05/27/19 Range/Units 18:30 18:30 18:30 MCHC (31.0-37.0) g/dL Plt Count 134 L (150-450) k/uL Neutrophils # (1.3-7.7) k/uL Lymphocytes # 0.8 L (1.0-4.8) k/uL Sodium 135 L (137-145) mmol/L Carbon Dioxide 21 L (22-30) mmol/L BUN 20 H (7-17) mg/dL Creatinine 0.50 L (0.52-1.04) mg/dL Glucose 312 H (74-99) mg/dL POC Glucose (mg/dL) (75-99) mg/dL Plasma Lactic Acid Eddie 5.0 H* (0.7-2.0) mmol/L AST 39 H (14-36) U/L Alkaline Phosphatase 130 H (38-126) U/L Total Protein 6.1 L (6.3-8.2) g/dL Albumin 3.2 L (3.5-5.0) g/dL 05/27/19 05/28/19 05/28/19 Range/Units 22:27 02:10 06:13 MCHC (31.0-37.0) g/dL Plt Count (150-450) k/uL Neutrophils # (1.3-7.7) k/uL Lymphocytes # (1.0-4.8) k/uL Sodium (137-145) mmol/L Carbon Dioxide (22-30) mmol/L BUN (7-17) mg/dL Creatinine (0.52-1.04) mg/dL Glucose (74-99) mg/dL POC Glucose (mg/dL) (75-99) mg/dL Plasma Lactic Acid Eddie 6.2 H* 5.7 H* 6.0 H* (0.7-2.0) mmol/L AST (14-36) U/L Alkaline Phosphatase (38-126) U/L Total Protein (6.3-8.2) g/dL Albumin (3.5-5.0) g/dL 05/28/19 05/28/19 Range/Units 06:33 09:28 MCHC 30.8 L (31.0-37.0) g/dL Plt Count 130 L (150-450) k/uL Neutrophils # 8.5 H (1.3-7.7) k/uL Lymphocytes # 0.2 L (1.0-4.8) k/uL Sodium (137-145) mmol/L Carbon Dioxide (22-30) mmol/L BUN (7-17) mg/dL Creatinine (0.52-1.04) mg/dL Glucose (74-99) mg/dL POC Glucose (mg/dL) 471 H (75-99) mg/dL Plasma Lactic Acid Eddie (0.7-2.0) mmol/L AST (14-36) U/L Alkaline Phosphatase (38-126) U/L Total Protein (6.3-8.2) g/dL Albumin (3.5-5.0) g/dL Thrombosis Risk Factor Assmnt - Choose All That Apply Each Factor Represents 1 point: Abnormal pulmonary function (COPD), Medical pt on bed rest, Obesity (BMI >25), Serious lung disease incl. pneumonia (< 1month), Swollen legs (current), Varicose veins Each Risk Factor Represents 2 Points: Age 61-74 years Other congenital or acquired thrombophilia - If yes, enter type in comment: No Thrombosis Risk Factor Assessment Total Risk Factor Score: 8 Thrombosis Risk Factor Assessment Level: High Risk
[2019-05-28 17:10] LABS: Glucose,Whole Blood 358 mg/dL (75-99)
[2019-05-28] MEDS ORDERED: INSULIN REGULAR BOLUS (FROM DRIP BAG) IV ONE (17:18)
[2019-05-28] MEDS ORDERED: INSULIN REGULAR 100 UNIT/ML VIAL SQ SCH ×2 (18:00→21:00)
[2019-05-28] MEDS: ENOXAPARIN 40 MG/0.4 ML SYRINGE SQ SCH (18:03)
[2019-05-28] MEDS: AZITHROMYCIN 500 MG in SODIUM CHLORIDE 0.9% 250 ML IVPB SCH (18:04)
[2019-05-28] MEDS: INSULIN REGULAR 100 UNIT in SODIUM CHLORIDE 0.9% 100 ML IV SCH (18:14)
--- NOTE | 2019-05-28 18:31 | ECHOF ---
Referral Reason:chf MEASUREMENTS -------- HEIGHT: 132.1 cm WEIGHT: 88.5 kg BP: RVIDd: 2.6 cm (< 3.3) IVSd: 1.4 cm (0.6 - 1.1) LVIDd: 3.0 cm (3.9 - 5.3) LVPWd: 1.4 cm (0.6 - 1.1) IVSs: 1.9 cm LVIDs: 1.9 cm LVPWs: 2.2 cm LAESV Index (A-L): 38.05 ml/m Ao Diam: 2.5 cm (2.0 - 3.7) AV Cusp: 1.1 cm (1.5 - 2.6) LA Diam: 4.4 cm (2.7 - 3.8) MV E Go: 1.52 m/s MV DecT: 374 ms MV A Go: 2.65 m/s MV E/A Ratio: 0.58 AV maxP.10 mmHg AV meanP.48 mmHg AR PHT: 463 ms RAP: 5.00 mmHg RVSP: 29.19 mmHg FINDINGS -------- Resting tachycardia (HR>100bpm). This was a technically good study. The left ventricular size is normal. There is moderate concentric left ventricular hypertrophy. O verall left ventricular systolic function is normal with, an EF between 65 - 70 %. Possible LVOT Ob struction with a max gradient of 45 mmHg. Increased LAP Grade 2 Diastolic Dysfunction. The right ventricle is normal in size. LA is moderately dilated 34-39 ml/m2 The right atrial size is normal. Aortic valve is trileaflet and is moderately thickened. Trace amount of aortic regurgitation. Th ere is moderate aortic stenosis present. Peak/mean gradient across the Aortic Valve is 45.10mmHg / 26.48mmHg. The mitral valve leaflets are moderately thickened. Moderate mitral annular calcification present. Mild mitral regurgitation is present. The peak and mean MV gradients are 28.65mmHg 18.13mmHg as measured by doppler. Moderate mitral stenosis. The tricuspid valve appears structurally normal. Mild tricuspid regurgitation present. Right vent ricular systolic pressure is normal at < 35 mmHg. There is no pulmonic regurgitation present. The aortic root size is normal. Normal inferior vena cava with normal inspiratory collapse consistent with estimated right atrial pre ssure of 5 mmHg. There is no pericardial effusion. CONCLUSIONS -------- 1. Resting tachycardia (HR>100bpm). 2. This was a technically good study. 3. The left ventricular size is normal. 4. There is moderate concentric left ventricular hypertrophy. 5. Overall left ventricular systolic function is normal with, an EF between 65 - 70 %. 6. Possible LVOT Obstruction with a max gradient of 45 mmHg.. 7. Increased LAP Grade 2 Diastolic Dysfunction. 8. The right ventricle is normal in size. 9. LA is moderately dilated 34-39 ml/m2 10. The right atrial size is normal. 11. Aortic valve is trileaflet and is moderately thickened. 12. Trace amount of aortic regurgitation. 13. There is moderate aortic stenosis present. 14. Peak/mean gradient across the Aortic Valve is 45.10mmHg / 26.48mmHg. 15. The mitral valve leaflets are moderately thickened. 16. Moderate mitral annular calcification present. 17. Mild mitral regurgitation is present. 18. The peak and mean MV gradients are 28.65mmHg 18.13mmHg as measured by doppler. 19. Moderate mitral stenosis. 20. The tricuspid valve appears structurally normal. 21. Mild tricuspid regurgitation present. 22. Right ventricular systolic pressure is normal at < 35 mmHg. 23. There is no pulmonic regurgitation present. 24. The aortic root size is normal. 25. Normal inferior vena cava with normal inspiratory collapse consistent with estimated right atrial pressure of 5 mmHg. 26. There is no pericardial effusion. WELDER HELPER: Christin Wood RDCS
[2019-05-28 18:47] LABS: Glucose,Whole Blood 424 mg/dL (75-99)
[2019-05-28 19:16] LABS: Glucose,Whole Blood 435 mg/dL (75-99)
[2019-05-28 20:00] LABS: Glucose,Whole Blood 294 mg/dL (75-99)
[2019-05-28 20:28] LABS: Glucose,Whole Blood 287 mg/dL (75-99)
[2019-05-28] MEDS ORDERED: INSULIN NPH 300 UNIT/3 ML VIAL SQ SCH (21:00)
[2019-05-28] MEDS: GABAPENTIN 300 MG CAP PO SCH (21:50)
[2019-05-28] MEDS: LORATADINE 10 MG TAB PO SCH (21:50)
[2019-05-28 22:12] LABS: Glucose,Whole Blood 194 mg/dL (75-99)
[2019-05-29 00:03] LABS: Glucose,Whole Blood 127 mg/dL (75-99)
[2019-05-29] MEDS: FUROSEMIDE 10 MG/ML 4 ML VIAL IV SCH ×3 (00:43→20:26)
[2019-05-29] MEDS: methylPREDNISolone SOD SUCCI 40 MG/ML 1 ML VIAL IV SCH ×3 (00:43→16:31)
[2019-05-29] MEDS: MAGNESIUM CITRATE PO SCH ×4 (00:59→19:55)
[2019-05-29 02:21] LABS: Glucose,Whole Blood 218 mg/dL (75-99)
[2019-05-29] MEDS: INSULIN REGULAR 100 UNIT in SODIUM CHLORIDE 0.9% 100 ML IV SCH (02:30)
[2019-05-29] MEDS: IPRATROPIUM-ALBUTEROL 3 ML NEB INHALATION SCH ×5 (03:13→20:01)
[2019-05-29 05:59] LABS: Glucose,Whole Blood 180 mg/dL (75-99)
[2019-05-29] MEDS: SYMBICORT 160-4.5 MCG INHALER INHALATION SCH ×2 (07:46→20:02)
[2019-05-29 08:10] LABS: Glucose,Whole Blood 197 mg/dL (75-99)
[2019-05-29] MEDS: INSULIN ASPART (NovoLOG) 100 UNIT/ML VIAL SQ SCH ×3 (08:13→17:42)
--- NOTE | 2019-05-29 08:13 | XR ---
EXAMINATION TYPE: XR chest 1V portable DATE OF EXAM: 05/29/2019 COMPARISON: 05/27/2019 HISTORY: Shortness of breath TECHNIQUE: Single frontal view of the chest is obtained. FINDINGS: Cardiomegaly with diffuse interstitial pattern and small effusions with basilar consolidat ion. Postsurgical change overlying the cervical spine. Atherosclerotic change aorta. IMPRESSION: 1. Stable findings correlate for mild CHF otherwise consider interstitial pneumonitis.
[2019-05-29] MEDS: metFORMIN 500 MG TAB PO SCH ×2 (08:15→20:27)
[2019-05-29] MEDS: MULTIVITAMINS, THERA 1 EACH TAB PO SCH (08:16)
[2019-05-29] MEDS: ENOXAPARIN 40 MG/0.4 ML SYRINGE SQ SCH (08:16)
[2019-05-29] MEDS: ASPIRIN 81 MG PO SCH (08:16)
[2019-05-29] MEDS: NITROGLYCERIN OINT 1 INCH/GM PACKET TOPICAL SCH ×3 (08:16→18:02)
[2019-05-29] MEDS: LISINOPRIL 5 MG TAB PO SCH (08:17)
[2019-05-29] MEDS: METOPROLOL TARTRATE 25 MG TAB PO SCH (08:17)
[2019-05-29] MEDS: PRAMIPEXOLE 0.5 MG TAB PO SCH ×2 (08:22→12:55)
[2019-05-29 08:51] LABS: HCT 37.6 % (34.0-46.0); HGB 12.3 gm/dL (11.4-16.0); Hypochromasia Slight; MCH 32.3 pg (25.0-35.0); MCHC 32.7 g/dL (31.0-37.0); MCV 98.7 fL (80.0-100.0); Mean Platelet Volume 8.3; Platelet Count 177 k/uL (150-450); RBC 3.81 m/uL (3.80-5.40); RDW 14.8 % (11.5-15.5); WBC 15.2 k/uL (3.8-10.6)
[2019-05-29 08:58] LABS: Calcium 9.4 mg/dL (8.4-10.2); Potassium 4.7 mmol/L (3.5-5.1)
[2019-05-29 10:09] LABS: Glucose,Whole Blood 304 mg/dL (75-99)
[2019-05-29] MEDS ORDERED: INSULIN REGULAR 100 UNIT/ML VIAL SQ SCH (12:00)
--- NOTE | 2019-05-29 12:04 | PN ---
PROGRESS NOTE Esme is admitted with acute onset shortness of breath due to a combination of bronchitis and heart failure. This morning she is feeling better, has some cough, but the shortness of breath has improved. An echocardiogram we performed shows normal LV function. PHYSICAL EXAM: She is comfortable at rest. Vital signs are stable. There is no jugular venous distention. Chest exam reveals good air entry bilaterally. Heart exam reveals first and second heart sounds, irregular rhythm and ejection systolic murmur in the aortic area. Abdomen is soft. Exam of extremities did not reveal any edema. Peripheral pulses are felt. LABS: Show a hemoglobin of 12.3, platelet count is 177. Potassium is 4.7, creatinine is 0.8. ASSESSMENT: Shortness of breath due to a combination of congestive heart failure and COPD. PLAN: Patient will continue with current medications. Hopefully, home tomorrow. BIB / GERONIMO: [id number] /
[2019-05-29 12:12] LABS: Glucose,Whole Blood 225 mg/dL (75-99)
--- NOTE | 2019-05-29 13:27 | P.PN ---
Subjective Progress Note Date: 05/29/19 Principal diagnosis: Acute on chronic diastolic congestive heart failure and interstitial lung disease/sarcoidosis. This is a 74-year-old female with history of pulmonary sarcoidosis, chronic obstructive pulmonary disease related to sarcoidosis as well as restrictive lung disease. Patient is also known to have history of aortic stenosis, presented to the ER with mostly few days history of shortness of breath, cough, occasional wheezing, cough is nonproductive. Denies any fever no chills no hemoptysis no chest pain. Patient had a chest x-ray in the ER, showed interstitial lung disease, pulmonary fibrosis, possibility of underlying congestive heart failure is not entirely ruled out. But the patient had a normal BNP level. Her lactic acid on admission was as high as 6.2. Blood sugar was also noted to be extremely elevated on admission as high as 541 this morning. Her chest x-ray on this admission is not much different from the chest x-ray done on 10/08/2017. May be slightly worse. Patient was admitted, placed on diuretics, steroids, and I was asked to see her on consultation. Patient is actually an overflow in the intensive care unit. Describes mostly nonproductive cough, shortness of breath upon any activity, and she is normally maintained on 5 mg of prednisone for his underlying sarcoidosis. Her sarcoidosis used to be quite severe at one point, and it was involving her spinal cord. At one point she is to be on very high doses of prednisone. Reevaluated today on 05/29/2019, patient remains in the ICU as an overflow, feeling better, breathing easier, chest x-ray continues to show evidence of interstitial lung disease, and possibly some component of interstitial edema. Clinically however the patient is doing well, remains on Lasix at 40 mg every 8 hours, and I will cut it down to 40 mg every 12. CBC is relatively normal electrolytes are normal BUN is up to 52 creatinine is 0.8 to hence the Lasix will be cut down slightly Objective - Vital Signs Vital signs: Vital Signs Temp 97.9 F 05/29/19 08:00 Pulse 93 05/29/19 10:59 Resp 17 05/29/19 08:00 BP 105/51 05/29/19 08:00 Pulse Ox 95 05/29/19 08:00 Intake & Output 05/28/19 05/29/19 05/29/19 18:59 06:59 18:59 Intake Total 370.773 116.239 80 Output Total 950 925 150 Balance -579.227 -808.761 -70 Weight 88.451 kg Intake: IV 40 80 KVO 40 80 Intake, IV Titration 10.773 76.239 Amount Insulin Regular 100 unit 10.773 76.239 In Sodium Chloride 0.9% 100 ml @ Titrate IV .Q0M [facility] Rx#:[id number] Oral 360 Output: Urine 950 925 150 Other: Voiding Method Indwelling Catheter Indwelling Catheter Indwelling Catheter - Exam GENERAL: Physical exam revealed a 74-year-old female in no distress. ENT: Neck is soft and supple. No significant lymphadenopathy is noted. Oropharynx is clear. No neck masses, no JVD, no stridor. Areas of ecchymosis noted in the facial area related to recent fall and trauma. EYES: The sclera were anicteric PERRLA, EOMI. PULMONARY: Patient has crackles in the bases bilaterally. Patient has diminished breath sounds as well. Symmetrical chest expansion. CARDIOVASCULAR: There is a regular rate and rhythm 2/6 systolic murmur thought the precordium. Mostly over the aortic area. ABDOMEN: Soft and nontender with normal bowel sounds. No megaly no rebound no guarding. SKIN: Skin is clear with no lesions or rashes and otherwise unremarkable. Chronic venous stasis changes noted in lower extremities. NEUROLOGIC: Patient is alert and oriented x3. No gross focal neurologic deficits. MUSCULOSKELETAL: Normal extremities with adequate strength and full range of motion. Chronic venous stasis changes noted in lower extremities. LYMPHATICS: No significant lymphadenopathy is noted PSYCHIATRIC: Normal mood, affect and normal mental status examination. - Labs CBC & Chem 7: 05/29/19 08:25 05/29/19 08:25 Labs: Abnormal Lab Results - Last 24 Hours (Table) 05/28/19 05/28/19 05/28/19 Range/Units 14:08 17:10 18:18 WBC (3.8-10.6) k/uL Sodium (137-145) mmol/L Carbon Dioxide (22-30) mmol/L BUN (7-17) mg/dL Glucose (74-99) mg/dL POC Glucose (mg/dL) 358 H (75-99) mg/dL Plasma Lactic Acid Eddie 8.4 H* 7.1 H* (0.7-2.0) mmol/L 05/28/19 05/28/19 05/28/19 Range/Units 18:46 19:14 19:59 WBC (3.8-10.6) k/uL Sodium (137-145) mmol/L Carbon Dioxide (22-30) mmol/L BUN (7-17) mg/dL Glucose (74-99) mg/dL POC Glucose (mg/dL) 424 H 435 H 294 H (75-99) mg/dL Plasma Lactic Acid Eddie (0.7-2.0) mmol/L 05/28/19 05/28/19 05/28/19 Range/Units 20:27 22:11 22:25 WBC (3.8-10.6) k/uL Sodium (137-145) mmol/L Carbon Dioxide (22-30) mmol/L BUN (7-17) mg/dL Glucose (74-99) mg/dL POC Glucose (mg/dL) 287 H 194 H (75-99) mg/dL Plasma Lactic Acid Eddie 5.0 H* (0.7-2.0) mmol/L 05/29/19 05/29/19 05/29/19 Range/Units 00:01 02:19 03:10 WBC (3.8-10.6) k/uL Sodium (137-145) mmol/L Carbon Dioxide (22-30) mmol/L BUN (7-17) mg/dL Glucose (74-99) mg/dL POC Glucose (mg/dL) 127 H 218 H (75-99) mg/dL Plasma Lactic Acid Eddie 3.4 H* (0.7-2.0) mmol/L 05/29/19 05/29/19 05/29/19 Range/Units 05:57 08:09 08:20 WBC (3.8-10.6) k/uL Sodium (137-145) mmol/L Carbon Dioxide (22-30) mmol/L BUN (7-17) mg/dL Glucose (74-99) mg/dL POC Glucose (mg/dL) 180 H 197 H (75-99) mg/dL Plasma Lactic Acid Eddie 4.9 H* (0.7-2.0) mmol/L 05/29/19 05/29/19 05/29/19 Range/Units 08:25 08:25 10:07 WBC 15.2 H (3.8-10.6) k/uL Sodium 133 L (137-145) mmol/L Carbon Dioxide 20 L (22-30) mmol/L BUN 52 H (7-17) mg/dL Glucose 248 H (74-99) mg/dL POC Glucose (mg/dL) 304 H (75-99) mg/dL Plasma Lactic Acid Eddie (0.7-2.0) mmol/L 05/29/19 Range/Units 12:11 WBC (3.8-10.6) k/uL Sodium (137-145) mmol/L Carbon Dioxide (22-30) mmol/L BUN (7-17) mg/dL Glucose (74-99) mg/dL POC Glucose (mg/dL) 225 H (75-99) mg/dL Plasma Lactic Acid Eddie (0.7-2.0) mmol/L Microbiology - Last 24 Hours (Table) 05/27/19 18:30 Blood Culture - Preliminary Blood No Growth after 24 hours Assessment and Plan Assessment: Impression: Shortness of breath secondary to acute on chronic diastolic congestive heart failure and secondary to interstitial lung disease secondary to sarcoidosis. History of severe moderate mitral stenosis. Moderate aortic stenosis. Trileaflet aortic valve. History of COPD and restrictive lung disease, this is another contributing factor to her shortness of breath. History of coronary artery disease History of CVA Type 2 diabetes, poorly controlled blood sugars on this admission. GERD without esophagitis Benign essential hypertension Dyslipidemia History of nonalcoholic steatohepatitis. History of sarcoid related transverse myelitis History of tracheobronchomalacia. Recommendation: Continue Lasix however cut down the dose. Diuretics. Bronchodilators. Steroids. Updrafts. Repeat chest x-ray in a.m. Transfer out of the ICU once a bed becomes available Will follow closely. Prognosis is guarded Time with Patient: Less than 30
[2019-05-29 14:07] LABS: Glucose,Whole Blood 211 mg/dL (75-99)
--- NOTE | 2019-05-29 14:24 | CDI ---
Documentation Clarification Form Date: 05/29/2019 02:08:43 PM From: Ewa Arevalo RN CCDS Admit Date: 05/27/2019 08:25:00 PM Patient Name: Esme Gutierrez Visit Number: [id number] Discharge Date: ATTENTION: The Clinical Documentation Specialists (CDI) and [facility] Coding Staff appreciate your assistance in clarifying documentation. Please respond to the clarification below the line at the bottom and electronically sign. The CDI & [facility] Coding staff will review the response and follow-up if needed. Please note: Queries are made part of the Legal Health Record. If you have any questions, please contact the author of this message via ITS. 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 Patient has diminished breath sounds as well. Symmetrical chest expansion. Treatment: Solumedrol ivpb Q 8 Hrs; Lasix ivp Q 12 Hrs. Breathing tx 2/6 Duoneb Q4 Hrs; 2/6 Oxygen 4L nasal cannula In your professional opinion, can you please clarify if these findings signify one of the following conditions? * Acute Respiratory Failure * Acute Respiratory Distress * Acute Respiratory Insufficiency * Other Diagnosis, please specify * Unable to determine Specificity: If known, further specify (if known): With hypercapnia? (pCO2 >50 and pH <7.35) With hypoxia? (pO2 <60 mm Hg or SpO2 <91% on room air) (Last Query Form Revision: December 2018) MTDD
[2019-05-29 16:16] LABS: Glucose,Whole Blood 188 mg/dL (75-99)
[2019-05-29] MEDS: AZITHROMYCIN 500 MG in SODIUM CHLORIDE 0.9% 250 ML IVPB SCH (16:31)
[2019-05-29 17:28] LABS: Glucose,Whole Blood 197 mg/dL (75-99)
--- NOTE | 2019-05-29 19:33 | P.PN ---
Progress Note - Text Progress Note Date: 05/29/19 for documetation clarifications,patient had acute on chronic hypoxic respiratory failure,multifactoria as noted in my previous notes
[2019-05-29 20:15] LABS: Glucose,Whole Blood 224 mg/dL (75-99)
[2019-05-29] MEDS ORDERED: IPRATROPIUM-ALBUTEROL 3 ML NEB INHALATION PRN (20:15)
[2019-05-29] MEDS: LORATADINE 10 MG TAB PO SCH (20:27)
[2019-05-29] MEDS: GABAPENTIN 300 MG CAP PO SCH (20:27)
--- NOTE | 2019-05-29 20:43 | P.PN ---
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 . Patient has been progressively getting more short of breath over about 4 weeks. Increasing number of cough. Dried. No phlegm. Wheezing. No fever or chills. Decreased appetite rather congestion of the chest. Tired rundown. Admitted with asthma exacerbation. Started on bronchodilator steroids. IV Lasix. Admitted with bilateral pneumonia, asthma exacerbation, acute congestive heart failurediastolic dysfunction [id number] up in a chair. Breathing is a bit better. Slight cough. Tired. Did have a oral intake. Patient has been on IV Lasix. Review of systems: Was done for constitutional, cardiovascular, GI, pulmonary. relevant finding as above Active Medications Albuterol/Ipratropium (Duoneb 0.5 Mg-3 Mg/3 Ml Soln) 3 ml INHALATION RT-QID AICHA Albuterol/Ipratropium (Duoneb 0.5 Mg-3 Mg/3 Ml Soln) 3 ml INHALATION RT-Q2H PRN PRN Reason: Shortness Of Breath Or Wheezing Aspirin (Aspirin) 81 mg PO DAILY [facility] Last Admin: 05/29/19 08:16 Dose: 81 mg Documented by: Budesonide/Formoterol Fumarate (Symbicort 160-4.5 Mcg Inhaler) 2 puff INHALATION RT-BID [facility] Last Admin: 05/29/19 20:02 Dose: 2 puff Documented by: Enoxaparin Sodium (Lovenox) 40 mg SQ DAILY [facility] Last Admin: 05/29/19 08:16 Dose: 40 mg Documented by: Furosemide (Lasix) 40 mg IV Q12HR [facility] Last Admin: 05/29/19 20:26 Dose: 40 mg Documented by: Gabapentin (Neurontin) 300 mg PO HS [facility] Last Admin: 05/29/19 20:27 Dose: 300 mg Documented by: Ceftriaxone Sodium 1 gm/ (Sodium Chloride) 50 mls @ 100 mls/hr IVPB Q24HR [facility] Last Admin: 05/29/19 08:17 Dose: 100 mls/hr Documented by: Azithromycin 500 mg/ Sodium (Chloride) 250 mls @ 250 mls/hr IVPB DAILY@1600 [facility] Last Admin: 05/29/19 16:31 Dose: 250 mls/hr Documented by: Insulin Human Regular 100 unit (/ Sodium Chloride) 101 mls @ 0 mls/hr IV .Q0M [facility]; Protocol Last Titration: 05/29/19 20:16 Dose: 5 units/h, 5.05 mls/hr Documented by: Insulin Aspart (Novolog) 11 unit 0.13 unit/kg (11 unit) SQ AC-TID [facility] Last Admin: 05/29/19 17:42 Dose: 11 unit Documented by: Lisinopril (Zestril) 5 mg PO DAILY [facility] Last Admin: 05/29/19 08:17 Dose: 5 mg Documented by: Loratadine (Claritin) 10 mg PO [facility] Last Admin: 05/29/19 20:27 Dose: 10 mg Documented by: Metformin HCl (Glucophage) 1,000 mg PO BID [facility] Last Admin: 05/29/19 20:27 Dose: 1,000 mg Documented by: Methylprednisolone Sodium Succinate (Solu-Medrol) 40 mg IV Q8HR [facility] Last Admin: 05/29/19 16:31 Dose: 40 mg Documented by: Metoprolol Tartrate (Lopressor) 25 mg PO DAILY [facility] Last Admin: 05/29/19 08:17 Dose: 25 mg Documented by: Multivitamins (Theragran) 1 each PO DAILY [facility] Last Admin: 05/29/19 08:16 Dose: 1 each Documented by: Nitroglycerin (Nitro-Bid Oint) 1 inch TOPICAL QID [facility] Last Admin: 05/29/19 18:02 Dose: 1 inch Documented by: Non-Formulary Medication (Magnesium Citrate 1000mg) 1,000 mg PO [facility] Last Admin: 05/29/19 19:55 Dose: Not Given Documented by: Non-Formulary Medication (Magnesium Citrate ) 1,000 mg PO [facility] Last Admin: 05/29/19 19:55 Dose: Not Given Documented by: Pramipexole Dihydrochloride (Mirapex) 1.5 mg PO AC-BID@0700,1200 [facility] Last Admin: 05/29/19 12:55 Dose: 1.5 mg Documented by: Spironolactone (Aldactone) 50 mg PO DAILY PRN PRN Reason: Edema Last Admin: 05/28/19 11:10 Dose: 50 mg Documented by: Physical examination: VITAL SIGNS: 97.9, 110, 17, 105/51, 95% on 4 L GENERAL: Sitting up in a chair, but less short of breath EYES: Pupils equal. Conjunctiva normal. HEENT: External appearance of nose and ears normal, oral cavity grossly normal. NECK: JVD not raised; masses not palpable. HEART: First and second heart sounds are normal; minimal edema. LUNGS: Respiratory rate increased, decreased breath sounds, slight improvement ABDOMEN: Soft, nontender, liver spleen not palpable, no masses palpable. PSYCH: Alert and oriented x3; mood and affect slightly anxious MUSCULOSKELETAL: Evidence of OA DERMATOLOGICAL: Dry skin lower extremity with some venous insufficiency INVESTIGATIONS, reviewed in the clinical context:: White count 13.2 hemoglobin 12.3 potassium 4.7 creatinine 0.82 Accu-Cheks 248-304 Previous testing White count 6.1 hemoglobin 13 platelets 134 potassium 4.2 bun 20 creatinine 0.50 Lactic acid 5 proBNP 158 albumin 3.2 Influenza type A and type B both negative EKG tracing personally reviewed by me-poor R-wave progression, sinus rhythm Chest x-ray film personally reviewed by me-bilateral infiltrates 2-D echo-EF 65-70%, possible LVOT obstruction, moderate aortic stenosis Assessment: -Bilateral multilobar pneumonia -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 Remains on Zosyn, IV ceftriaxone, insulin drip IV Solu-Medrol. Other medications are to continue. Care was discussed with the patient.
[2019-05-29 22:03] LABS: Glucose,Whole Blood 210 mg/dL (75-99)
[2019-05-29 23:41] LABS: Glucose,Whole Blood 209 mg/dL (75-99)
[2019-05-30] MEDS: NITROGLYCERIN OINT 1 INCH/GM PACKET TOPICAL SCH ×3 (00:18→12:14)
[2019-05-30] MEDS: methylPREDNISolone SOD SUCCI 40 MG/ML 1 ML VIAL IV SCH ×3 (00:18→15:31)
[2019-05-30] MEDS: INSULIN REGULAR 100 UNIT in SODIUM CHLORIDE 0.9% 100 ML IV SCH ×2 (01:03→20:06)
[2019-05-30 01:56] LABS: Glucose,Whole Blood 162 mg/dL (75-99)
[2019-05-30 04:01] LABS: Glucose,Whole Blood 112 mg/dL (75-99)
[2019-05-30 05:11] LABS: Glucose,Whole Blood 136 mg/dL (75-99)
[2019-05-30 06:02] LABS: Glucose,Whole Blood 174 mg/dL (75-99)
[2019-05-30 06:51] LABS: Glucose,Whole Blood 219 mg/dL (75-99)
[2019-05-30] MEDS: PRAMIPEXOLE 0.5 MG TAB PO SCH ×2 (06:57→12:15)
[2019-05-30] MEDS: INSULIN ASPART (NovoLOG) 100 UNIT/ML VIAL SQ SCH ×3 (06:58→17:26)
[2019-05-30] MEDS: SYMBICORT 160-4.5 MCG INHALER INHALATION SCH ×2 (08:43→20:19)
[2019-05-30] MEDS: IPRATROPIUM-ALBUTEROL 3 ML NEB INHALATION SCH ×4 (08:43→20:19)
[2019-05-30 09:13] LABS: Glucose,Whole Blood 353 mg/dL (75-99)
[2019-05-30] MEDS: ENOXAPARIN 40 MG/0.4 ML SYRINGE SQ SCH (09:38)
[2019-05-30] MEDS: metFORMIN 500 MG TAB PO SCH ×2 (09:38→21:34)
[2019-05-30] MEDS: MULTIVITAMINS, THERA 1 EACH TAB PO SCH (09:38)
[2019-05-30] MEDS: ASPIRIN 81 MG PO SCH (09:38)
[2019-05-30] MEDS: FUROSEMIDE 10 MG/ML 4 ML VIAL IV SCH ×2 (09:39→21:34)
[2019-05-30] MEDS: METOPROLOL TARTRATE 25 MG TAB PO SCH (09:40)
[2019-05-30] MEDS: LISINOPRIL 5 MG TAB PO SCH (09:40)
[2019-05-30 11:46] LABS: Glucose,Whole Blood 245 mg/dL (75-99)
--- NOTE | 2019-05-30 12:06 | XR ---
EXAMINATION TYPE: XR chest 1V portable DATE OF EXAM: 05/30/2019 HISTORY: chf. REFERENCE: The study dated 05/29/2019. FINDINGS: There has been a previous ACDF of the lower cervical spine. The heart is upper limits of normal in size. There is mild vascular congestion and pulmonary edema. T he overall appearance has improved somewhat. I suspect bilateral effusions. IMPRESSION: IMPROVING CHANGES OF PULMONARY EDEMA.
--- NOTE | 2019-05-30 13:48 | P.PN ---
Subjective Progress Note Date: 05/30/19 Principal diagnosis: Acute on chronic diastolic congestive heart failure and interstitial lung disease/sarcoidosis. This is a 74-year-old female with history of pulmonary sarcoidosis, chronic obstructive pulmonary disease related to sarcoidosis as well as restrictive lung disease. Patient is also known to have history of aortic stenosis, presented to the ER with mostly few days history of shortness of breath, cough, occasional wheezing, cough is nonproductive. Denies any fever no chills no hemoptysis no chest pain. Patient had a chest x-ray in the ER, showed interstitial lung disease, pulmonary fibrosis, possibility of underlying congestive heart failure is not entirely ruled out. But the patient had a normal BNP level. Her lactic acid on admission was as high as 6.2. Blood sugar was also noted to be extremely elevated on admission as high as 541 this morning. Her chest x-ray on this admission is not much different from the chest x-ray done on 10/08/2017. May be slightly worse. Patient was admitted, placed on diuretics, steroids, and I was asked to see her on consultation. Patient is actually an overflow in the intensive care unit. Describes mostly nonproductive cough, shortness of breath upon any activity, and she is normally maintained on 5 mg of prednisone for his underlying sarcoidosis. Her sarcoidosis used to be quite severe at one point, and it was involving her spinal cord. At one point she is to be on very high doses of prednisone. Reevaluated today on 05/29/2019, patient remains in the ICU as an overflow, feeling better, breathing easier, chest x-ray continues to show evidence of interstitial lung disease, and possibly some component of interstitial edema. Clinically however the patient is doing well, remains on Lasix at 40 mg every 8 hours, and I will cut it down to 40 mg every 12. CBC is relatively normal electrolytes are normal BUN is up to 52 creatinine is 0.8 to hence the Lasix will be cut down slightly Reevaluated today on 05/30/2019, patient remains in the ICU, has a bit of a cough, no shortness of breath, no wheezing, no chest pain, chest x-ray is showing slight improvement in her interstitial edema. Labs from yesterday were reviewed, no labs were ordered today. I will order a basic metabolic profile to be done tomorrow. Reviewed the chest x-ray, obviously there is some improvement. Objective - Vital Signs Vital signs: Vital Signs Temp 98.1 F 05/30/19 06:20 Pulse 89 05/30/19 12:12 Resp 22 05/30/19 06:20 BP 112/59 05/30/19 06:20 Pulse Ox 96 05/30/19 06:20 Intake & Output 05/29/19 05/30/19 05/30/19 18:59 06:59 18:59 Intake Total 202.485 449.365 40.450 Output Total 470 900 Balance -267.515 -450.635 40.450 Weight 92.5 kg Intake: IV 140 KVO 140 Intake, IV Titration 62.485 449.365 40.450 Amount Insulin Regular 100 unit 62.485 49.365 40.450 In Sodium Chloride 0.9% 100 ml @ Titrate IV .Q0M [facility] Rx#:[id number] cefTRIAXone 1 gm In 400 Sodium Chloride 0.9% 50 ml @ 100 mls/hr IVPB Q24HR [facility] Rx#:[id number] Output: Urine 470 900 Other: Voiding Method Indwelling Catheter Indwelling Catheter # Bowel Movements 1 - Exam GENERAL: Physical exam revealed a 74-year-old female in no distress. ENT: Neck is soft and supple. No significant lymphadenopathy is noted. Oropharynx is clear. No neck masses, no JVD, no stridor. Areas of ecchymosis noted in the facial area related to recent fall and trauma. EYES: The sclera were anicteric PERRLA, EOMI. PULMONARY: Symmetrical chest expansion, minimal crackles at the bases, no rhonchi and no wheezes. CARDIOVASCULAR: There is a regular rate and rhythm 2/6 systolic murmur thought the precordium. Mostly over the aortic area. ABDOMEN: Soft and nontender with normal bowel sounds. No megaly no rebound no guarding. SKIN: Skin is clear with no lesions or rashes and otherwise unremarkable. Chronic venous stasis changes noted in lower extremities. NEUROLOGIC: Patient is alert and oriented x3. No gross focal neurologic deficits. MUSCULOSKELETAL: Normal extremities with adequate strength and full range of motion. Chronic venous stasis changes noted in lower extremities. LYMPHATICS: No significant lymphadenopathy is noted PSYCHIATRIC: Normal mood, affect and normal mental status examination. - Labs CBC & Chem 7: 05/29/19 08:25 05/29/19 08:25 Labs: Abnormal Lab Results - Last 24 Hours (Table) 05/29/19 05/29/19 05/29/19 Range/Units 14:06 16:14 17:26 POC Glucose (mg/dL) 211 H 188 H 197 H (75-99) mg/dL 05/29/19 05/29/19 05/29/19 Range/Units 20:13 22:02 23:40 POC Glucose (mg/dL) 224 H 210 H 209 H (75-99) mg/dL 05/30/19 05/30/19 05/30/19 Range/Units 01:54 04:00 05:09 POC Glucose (mg/dL) 162 H 112 H 136 H (75-99) mg/dL 05/30/19 05/30/19 05/30/19 Range/Units 06:01 06:49 09:12 POC Glucose (mg/dL) 174 H 219 H 353 H (75-99) mg/dL 05/30/19 Range/Units 11:45 POC Glucose (mg/dL) 245 H (75-99) mg/dL Microbiology - Last 24 Hours (Table) 05/27/19 18:30 Blood Culture - Preliminary Blood No Growth after 48 hours Assessment and Plan Assessment: Impression: Acute on chronic hypoxic respiratory failure, multifactorial, secondary to chronic diastolic congestive heart failure, interstitial lung disease underlying COPD and restrictive lung disease secondary to sarcoidosis. Shortness of breath secondary to acute on chronic diastolic congestive heart failure and secondary to interstitial lung disease secondary to sarcoidosis. History of severe moderate mitral stenosis. Moderate aortic stenosis. Trileaflet aortic valve. History of COPD and restrictive lung disease, this is another contributing factor to her shortness of breath. History of coronary artery disease History of CVA Type 2 diabetes, poorly controlled blood sugars on this admission. GERD without esophagitis Benign essential hypertension Dyslipidemia History of nonalcoholic steatohepatitis. History of sarcoid related transverse myelitis History of tracheobronchomalacia. Recommendation: Continue Lasix at 40 mg twice a day. Bronchodilators. Steroids. Updrafts. Repeat chest x-ray in a.m. Repeat basic metabolic profile in a.m. Transfer out of the ICU once a bed becomes available Will follow closely. Prognosis is guarded Time with Patient: Less than 30
[2019-05-30 14:13] LABS: Glucose,Whole Blood 293 mg/dL (75-99)
[2019-05-30] MEDS: AZITHROMYCIN 500 MG in SODIUM CHLORIDE 0.9% 250 ML IVPB SCH (15:31)
[2019-05-30 16:48] LABS: Glucose,Whole Blood 160 mg/dL (75-99)
[2019-05-30 17:40] LABS: Glucose,Whole Blood 149 mg/dL (75-99)
[2019-05-30 18:33] LABS: Glucose,Whole Blood 247 mg/dL (75-99)
[2019-05-30 20:04] LABS: Glucose,Whole Blood 242 mg/dL (75-99)
[2019-05-30] MEDS ORDERED: MENTHOL (NICE) LOZENGE MUCOUS MEM PRN (20:11)
[2019-05-30] MEDS: MAGNESIUM CITRATE PO SCH ×2 (21:24)
[2019-05-30] MEDS: GABAPENTIN 300 MG CAP PO SCH (21:34)
[2019-05-30] MEDS: LORATADINE 10 MG TAB PO SCH (21:34)
--- NOTE | 2019-05-30 21:42 | P.PN ---
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 . Patient has been progressively getting more short of breath over about 4 weeks. Increasing number of cough. Dried. No phlegm. Wheezing. No fever or chills. Decreased appetite rather congestion of the chest. Tired rundown. Admitted with asthma exacerbation. Started on bronchodilator steroids. IV Lasix. Admitted with bilateral pneumonia, asthma exacerbation, acute congestive heart failurediastolic dysfunction [id number] up in a chair. Breathing much improved. Wheezing improved Eating better. Feels better. Family is visiting. Remains on insulin drip. Review of systems: Was done for constitutional, cardiovascular, GI, pulmonary. relevant finding as above Active Medications Albuterol/Ipratropium (Duoneb 0.5 Mg-3 Mg/3 Ml Soln) 3 ml INHALATION RT-QID [facility] Last Admin: 05/30/19 20:19 Dose: 3 ml Documented by: Albuterol/Ipratropium (Duoneb 0.5 Mg-3 Mg/3 Ml Soln) 3 ml INHALATION RT-Q2H PRN PRN Reason: Shortness Of Breath Or Wheezing Aspirin (Aspirin) 81 mg PO DAILY [facility] Last Admin: 05/30/19 09:38 Dose: 81 mg Documented by: Budesonide/Formoterol Fumarate (Symbicort 160-4.5 Mcg Inhaler) 2 puff INHALATION RT-BID [facility] Last Admin: 05/30/19 20:19 Dose: 2 puff Documented by: Enoxaparin Sodium (Lovenox) 40 mg SQ DAILY [facility] Last Admin: 05/30/19 09:38 Dose: 40 mg Documented by: Furosemide (Lasix) 40 mg IV Q12HR [facility] Last Admin: 05/30/19 21:34 Dose: 40 mg Documented by: Gabapentin (Neurontin) 300 mg PO HS [facility] Last Admin: 05/30/19 21:34 Dose: 300 mg Documented by: Ceftriaxone Sodium 1 gm/ (Sodium Chloride) 50 mls @ 100 mls/hr IVPB Q24HR [facility] Last Admin: 05/30/19 09:39 Dose: 100 mls/hr Documented by: Azithromycin 500 mg/ Sodium (Chloride) 250 mls @ 250 mls/hr IVPB DAILY@1600 [facility] Last Admin: 05/30/19 15:31 Dose: 250 mls/hr Documented by: Insulin Human Regular 100 unit (/ Sodium Chloride) 101 mls @ 0 mls/hr IV .Q0M [facility]; Protocol Last Admin: 05/30/19 20:06 Dose: 5.5 units/h, 5.555 mls/hr Documented by: Insulin Aspart (Novolog) 11 unit 0.13 unit/kg (11 unit) SQ AC-TID [facility] Last Admin: 05/30/19 17:26 Dose: 11 unit Documented by: Lisinopril (Zestril) 5 mg PO DAILY [facility] Last Admin: 05/30/19 09:40 Dose: 5 mg Documented by: Loratadine (Claritin) 10 mg PO [facility] Last Admin: 05/30/19 21:34 Dose: 10 mg Documented by: Menthol (Nice Cough Drops) 1 each MUCOUS MEM Q2H PRN PRN Reason: Cough Metformin HCl (Glucophage) 1,000 mg PO BID [facility] Last Admin: 05/30/19 21:34 Dose: 1,000 mg Documented by: Metoprolol Tartrate (Lopressor) 25 mg PO DAILY [facility] Last Admin: 05/30/19 09:40 Dose: 25 mg Documented by: Multivitamins (Theragran) 1 each PO DAILY [facility] Last Admin: 05/30/19 09:38 Dose: 1 each Documented by: Non-Formulary Medication (Magnesium Citrate 1000mg) 1,000 mg PO [facility] Last Admin: 05/30/19 21:24 Dose: Not Given Documented by: Non-Formulary Medication (Magnesium Citrate ) 1,000 mg PO [facility] Last Admin: 05/30/19 21:24 Dose: Not Given Documented by: Pramipexole Dihydrochloride (Mirapex) 1.5 mg PO AC-BID@0700,1200 [facility] Last Admin: 05/30/19 12:15 Dose: 1.5 mg Documented by: Prednisone () 40 mg PO DAILY [facility] Spironolactone (Aldactone) 50 mg PO DAILY PRN PRN Reason: Edema Last Admin: 05/28/19 11:10 Dose: 50 mg Documented by: Physical examination: VITAL SIGNS: 98.0-847-63-100/58-95% room air GENERAL: Sitting up in a recliner, more comfortable EYES: Pupils equal. Conjunctiva normal. HEENT: External appearance of nose and ears normal, oral cavity grossly normal. NECK: JVD not raised; masses not palpable. HEART: First and second heart sounds are normal; minimal edema. LUNGS: Respiratory rate increased, decreased breath sounds, improved ABDOMEN: Soft, nontender, liver spleen not palpable, no masses palpable. PSYCH: Alert and oriented x3; mood and affect slightly anxious MUSCULOSKELETAL: Evidence of OA DERMATOLOGICAL: Dry skin lower extremity with some venous insufficiency INVESTIGATIONS, reviewed in the clinical context:: White count 13.2 hemoglobin 12.3 potassium 4.7 creatinine 0.82 Accu-Cheks 248-304 Previous testing White count 6.1 hemoglobin 13 platelets 134 potassium 4.2 bun 20 creatinine 0.50 Lactic acid 5 proBNP 158 albumin 3.2 Influenza type A and type B both negative EKG tracing personally reviewed by me-poor R-wave progression, sinus rhythm Chest x-ray film personally reviewed by me-bilateral infiltrates 2-D echo-EF 65-70%, possible LVOT obstruction, moderate aortic stenosis Assessment: -Bilateral multilobar pneumonia, improving -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 Was switched from IV Solu-Medrol to by mouth prednisone. By this evening switched to scheduled insulin. Expect sugars still run a bit high. Looking to be discharge in next 24 hours. Repeat labs in the morning.
[2019-05-30] MEDS ORDERED: INSULIN NPH 300 UNIT/3 ML VIAL SQ SCH (22:00)
[2019-05-30 22:06] LABS: Glucose,Whole Blood 203 mg/dL (75-99)
--- NOTE | 2019-05-30 22:53 | CONS ---
CONSULTATION Esme is a 74-year-old lady who is admitted to hospital with cough and shortness of breath. She is feeling better. Shortness of breath has improved. Echocardiogram showed normal LV function with moderate aortic stenosis. EXAM: The patient is comfortable at rest. Vital signs are stable. Chest exam reveals diminished air entry at the bases without any crackles or rhonchi. Heart exam reveals first and second heart sounds. No gallop. Exam of the extremities did not reveal any edema. Peripheral pulses are felt. ASSESSMENT: Shortness of breath due to a combination of chronic obstructive pulmonary disease and congestive heart failure exacerbation. The patient is feeling better. I will switch her Lasix to p.o. Hopefully home tomorrow. MMODL / IJN: [id number] /
[2019-05-31 00:50] LABS: Glucose,Whole Blood 274 mg/dL (75-99)
[2019-05-31 05:35] LABS: African American GFR (CKD) >90 (>60 ml/min/1.73 sqM); Anion Gap 9 mmol/L; Blood Urea Nitrogen 55 mg/dL (7-17); Calcium 9.5 mg/dL (8.4-10.2); Carbon Dioxide 24 mmol/L (22-30); Chloride 101 mmol/L (98-107); Glucose 306 mg/dL (74-99); Non-African American GFR(CKD) 79 (>60 ml/min/1.73 sqM); Potassium 4.4 mmol/L (3.5-5.1); Sodium 134 mmol/L (137-145)
[2019-05-31 06:10] LABS: Glucose,Whole Blood 297 mg/dL (75-99)
[2019-05-31] MEDS: INSULIN ASPART (NovoLOG) 100 UNIT/ML VIAL SQ SCH ×3 (06:20→17:09)
[2019-05-31] MEDS: PRAMIPEXOLE 0.5 MG TAB PO SCH ×2 (06:21→12:54)
[2019-05-31] MEDS: INSULN ASP PRT/INSULIN ASPART 100 UNIT/ML 10 ML VIAL SQ SCH ×2 (06:30→17:09)
[2019-05-31] MEDS: SYMBICORT 160-4.5 MCG INHALER INHALATION SCH (08:31)
[2019-05-31] MEDS: IPRATROPIUM-ALBUTEROL 3 ML NEB INHALATION SCH ×3 (08:31→14:26)
[2019-05-31] MEDS ORDERED: predniSONE 20 MG TAB PO SCH (09:00)
[2019-05-31] MEDS ORDERED: AZITHROMYCIN 500 MG TAB PO SCH (09:00)
[2019-05-31] MEDS ORDERED: FUROSEMIDE 40 MG TAB PO SCH (09:00)
[2019-05-31] MEDS: metFORMIN 500 MG TAB PO SCH (09:52)
[2019-05-31] MEDS: MULTIVITAMINS, THERA 1 EACH TAB PO SCH (09:52)
[2019-05-31] MEDS: LISINOPRIL 5 MG TAB PO SCH (09:52)
[2019-05-31] MEDS: ASPIRIN 81 MG PO SCH (09:53)
[2019-05-31] MEDS: METOPROLOL TARTRATE 25 MG TAB PO SCH (09:53)
[2019-05-31 11:58] LABS: Glucose,Whole Blood 320 mg/dL (75-99)
[2019-05-31] MEDS ORDERED: INSULN ASP PRT/INSULIN ASPART 100 UNIT/ML 10 ML VIAL SQ SCH (12:30)
--- NOTE | 2019-05-31 12:42 | PN ---
PROGRESS NOTE This is a 74-year-old lady who is admitted to hospital with shortness of breath due to a combination of chronic obstructive pulmonary disease and CHF exacerbation, feeling much better. Shortness of breath has improved. On exam today, she is anxious and eager to go home. Heart rate is around 104 beats per minute. Blood pressure is 131/57, respirations rate 18. Chest exam reveals good air entry. I do not hear any crackles or rhonchi. Heart exam reveals first and second heart sounds, a grade 4 x 6 ejection systolic murmur in the aortic area. Exam of the extremities reveals bilateral chronic stasis changes and mild edema. Labs show a potassium of 4.4, creatinine is 0.7. ASSESSMENT: 1. Acute exacerbation of chronic congestive heart failure. 2. Chronic obstructive pulmonary disease exacerbation. 3. Aortic stenosis. PLAN: Patient is doing better. Stable for discharge. MMODL / IJN: [id number] /
[2019-05-31] MEDS ORDERED: cefTRIAXone 1,000 MG VIAL (IM USE) IM ONE (14:00)
--- NOTE | 2019-05-31 14:09 | P.PN ---
Subjective Progress Note Date: 05/31/19 Principal diagnosis: Acute on chronic diastolic congestive heart failure and interstitial lung disease/sarcoidosis. This is a 74-year-old female with history of pulmonary sarcoidosis, chronic obstructive pulmonary disease related to sarcoidosis as well as restrictive lung disease. Patient is also known to have history of aortic stenosis, presented to the ER with mostly few days history of shortness of breath, cough, occasional wheezing, cough is nonproductive. Denies any fever no chills no hemoptysis no chest pain. Patient had a chest x-ray in the ER, showed interstitial lung disease, pulmonary fibrosis, possibility of underlying congestive heart failure is not entirely ruled out. But the patient had a normal BNP level. Her lactic acid on admission was as high as 6.2. Blood sugar was also noted to be extremely elevated on admission as high as 541 this morning. Her chest x-ray on this admission is not much different from the chest x-ray done on 10/08/2017. May be slightly worse. Patient was admitted, placed on diuretics, steroids, and I was asked to see her on consultation. Patient is actually an overflow in the intensive care unit. Describes mostly nonproductive cough, shortness of breath upon any activity, and she is normally maintained on 5 mg of prednisone for his underlying sarcoidosis. Her sarcoidosis used to be quite severe at one point, and it was involving her spinal cord. At one point she is to be on very high doses of prednisone. Reevaluated today on 05/29/2019, patient remains in the ICU as an overflow, feeling better, breathing easier, chest x-ray continues to show evidence of interstitial lung disease, and possibly some component of interstitial edema. Clinically however the patient is doing well, remains on Lasix at 40 mg every 8 hours, and I will cut it down to 40 mg every 12. CBC is relatively normal electrolytes are normal BUN is up to 52 creatinine is 0.8 to hence the Lasix will be cut down slightly Reevaluated today on 05/30/2019, patient remains in the ICU, has a bit of a cough, no shortness of breath, no wheezing, no chest pain, chest x-ray is showing slight improvement in her interstitial edema. Labs from yesterday were reviewed, no labs were ordered today. I will order a basic metabolic profile to be done tomorrow. Reviewed the chest x-ray, obviously there is some improvement. Reevaluated today on 05/31/2019, patient remains in the intensive care unit as an overflow, feeling much better, breathing is much easier, follow-up chest x-ray yesterday showed definite improvement in her interstitial edema has not recommendation is to switch the patient to oral diuretics, oral prednisone, and consider discharge planning in the next 24 hours or even possibly today. Objective - Vital Signs Vital signs: Vital Signs Temp 98.0 F 05/31/19 08:00 Pulse 106 H 05/31/19 08:43 Resp 22 05/31/19 08:00 BP 121/57 05/31/19 08:00 Pulse Ox 94 L 05/31/19 08:00 Intake & Output 05/30/19 05/31/19 05/31/19 18:59 06:59 18:59 Intake Total 398.452 166.143 20 Output Total 1200 930 420 Balance -801.548 -763.857 -400 Intake: IV 80 160 20 KVO 80 160 20 Intake, IV Titration 78.452 6.143 Amount Insulin Regular 100 unit 78.452 6.143 In Sodium Chloride 0.9% 100 ml @ Titrate IV .Q0M [facility] Rx#:[id number] Oral 240 Output: Urine 1200 930 420 Other: Voiding Method Indwelling Catheter Indwelling Catheter # Bowel Movements 2 - Exam GENERAL: Physical exam revealed a 74-year-old female in no distress. ENT: Neck is soft and supple. No significant lymphadenopathy is noted. Oropharynx is clear. No neck masses, no JVD, no stridor. Areas of ecchymosis noted in the facial area related to recent fall and trauma. EYES: The sclera were anicteric PERRLA, EOMI. PULMONARY: Symmetrical chest expansion, clear throughout no crackles or rhonchi or wheezes. CARDIOVASCULAR: There is a regular rate and rhythm 2/6 systolic murmur thought the precordium. Mostly over the aortic area. ABDOMEN: Soft and nontender with normal bowel sounds. No megaly no rebound no guarding. SKIN: Skin is clear with no lesions or rashes and otherwise unremarkable. Chronic venous stasis changes noted in lower extremities. NEUROLOGIC: Patient is alert and oriented x3. No gross focal neurologic deficits. MUSCULOSKELETAL: Normal extremities with adequate strength and full range of motion. Chronic venous stasis changes noted in lower extremities. LYMPHATICS: No significant lymphadenopathy is noted PSYCHIATRIC: Normal mood, affect and normal mental status examination. - Labs CBC & Chem 7: 05/29/19 08:25 05/31/19 04:40 Labs: Abnormal Lab Results - Last 24 Hours (Table) 05/30/19 05/30/19 05/30/19 Range/Units 14:12 16:46 17:23 Sodium (137-145) mmol/L BUN (7-17) mg/dL Glucose (74-99) mg/dL POC Glucose (mg/dL) 293 H 160 H 149 H (75-99) mg/dL 05/30/19 05/30/19 05/30/19 Range/Units 18:32 20:02 22:05 Sodium (137-145) mmol/L BUN (7-17) mg/dL Glucose (74-99) mg/dL POC Glucose (mg/dL) 247 H 242 H 203 H (75-99) mg/dL 05/31/19 05/31/19 05/31/19 Range/Units 00:48 04:40 06:09 Sodium 134 L (137-145) mmol/L BUN 55 H (7-17) mg/dL Glucose 306 H (74-99) mg/dL POC Glucose (mg/dL) 274 H 297 H (75-99) mg/dL 05/31/19 Range/Units 11:56 Sodium (137-145) mmol/L BUN (7-17) mg/dL Glucose (74-99) mg/dL POC Glucose (mg/dL) 320 H (75-99) mg/dL Microbiology - Last 24 Hours (Table) 05/27/19 18:30 Blood Culture - Preliminary Blood No Growth after 72 hours Assessment and Plan Assessment: Impression: Acute on chronic hypoxic respiratory failure, multifactorial, secondary to chronic diastolic congestive heart failure, interstitial lung disease underlying COPD and restrictive lung disease secondary to sarcoidosis. Shortness of breath secondary to acute on chronic diastolic congestive heart failure and secondary to interstitial lung disease secondary to sarcoidosis. History of severe moderate mitral stenosis. Moderate aortic stenosis. Trileaflet aortic valve. History of COPD and restrictive lung disease, this is another contributing factor to her shortness of breath. History of coronary artery disease History of CVA Type 2 diabetes, poorly controlled blood sugars on this admission. GERD without esophagitis Benign essential hypertension Dyslipidemia History of nonalcoholic steatohepatitis. History of sarcoid related transverse myelitis History of tracheobronchomalacia. Recommendation: Continue Lasix at 40 mg twice a day. Orally. Bronchodilators. As usually given at home Consider discharge planning and outpatient follow-up with Dr. Bernstein Time with Patient: Less than 30
[2019-05-31 16:52] VITALS: RESP 21
[2019-05-31 17:05] LABS: Glucose,Whole Blood 281 mg/dL (75-99)
[2019-05-31 17:52] VITALS: BP 120/54; PULSE 107; TEMP 97.5
--- NOTE | 2019-05-31 22:21 | P.DS ---
Providers Date of admission: 05/27/19 20:25 Expected date of discharge: 05/31/19 Attending physician: Ronan Webster Consults: 05/27/19 20:24 Consult Physician Routine Consulting Provider: [facility] Consult Reason/Comments: Pulmonary edema Do you want consulting provider notified?: Yes 05/27/19 20:28 Consult Physician Routine Consulting Provider: Pablo Alvarado Reason/Comments: History of sarcoidosis Do you want consulting provider notified?: Yes Primary care physician: Harry [facility] Course: Chief Complaint: Shortness of breath History of presenting complaint: This is a pleasant 74-year-old patient of Dr. Abel. 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 . Patient has been progressively getting more short of breath over about 4 weeks. Increasing number of cough. Dry. No phlegm. Wheezing. No fever or chills. Decreased appetite rather congestion of the chest. Tired rundown. Admitted with bilateral pneumonia, asthma exacerbation, acute congestive heart failurediastolic dysfunction. Responded well to bronchodilators, steroids, IV Lasix. Sugars were running high was put on insulin drip. [id number] improved. Respiratory symptoms are much better. Tolerating a diet. Keen to go home. Insulin type to go home was changed. Hopefully with decrease in completion of steroids sugars will come down a bit more.. Discussion and discharge planning more than 35 minutes Consultations: Dr. Alvarado from pulmonary Dr. Luciana Henderson from cardiology Physical examination: VITAL SIGNS: 97.8-100-21-37/54-94% on room air GENERAL: Sitting up, comfortable EYES: Pupils equal. Conjunctiva normal. HEENT: External appearance of nose and ears normal, oral cavity grossly normal. NECK: JVD not raised; masses not palpable. HEART: First and second heart sounds are normal; minimal edema. LUNGS: Respiratory rate normal, improved air entry ABDOMEN: Soft, nontender, liver spleen not palpable, no masses palpable. PSYCH: Alert and oriented x3; mood and affect slightly anxious MUSCULOSKELETAL: Evidence of OA DERMATOLOGICAL: Dry skin lower extremity with some venous insufficiency INVESTIGATIONS, reviewed in the clinical context:: Potassium 4.4 creatinine 0.75 Accu-Cheks 281 Previous testing White count 6.1 hemoglobin 13 platelets 134 potassium 4.2 bun 20 creatinine 0.50 Lactic acid 5 proBNP 158 albumin 3.2 Influenza type A and type B both negative EKG tracing personally reviewed by me-poor R-wave progression, sinus rhythm Chest x-ray film personally reviewed by me-bilateral infiltrates 2-D echo-EF 65-70%, possible LVOT obstruction, moderate aortic stenosis Assessment: -Pneumonia suspect gram-negative organism, improved -Interstitial lung secondary to sarcoidosis -Questionable acute congestive heart failure exacerbation from diastolic dysfunction 65-70% dysfunction, -Coronary artery disease -Moderate persistent Asthma, with acute exacerbation -Diabetes mellitus type 2, chronically on insulin, uncontrolled with hyperglycemia, on insulin drip -GERD -Hyperlipidemia -Essential hypertension -Primary osteoarthritis -Sjogren syndrome -Nonalcoholic steatohepatitis -Nephrolithiasis -Restless leg syndrome -Colonic Diverticulosis -Restless leg syndrome -Moderate aortic stenosis -Obesity BMI 40.8 Disposition: Home Plan - Discharge Summary Discharge Rx Participant: No New Discharge Prescriptions: New Cefuroxime Axetil [Ceftin] 500 mg PO BID 3 Days #6 tab Insuln Asp Prt/Insulin Aspart [NovoLOG MIX 70-30 VIAL] 22 unit SQ AC-BID #1 vial Insuln Asp Prt/Insulin Aspart [NovoLOG MIX 70-30 VIAL] 10 unit SQ AC-LUNCH #1 vial predniSONE 0 mg PO DIRECTED #6 tab Lisinopril [Zestril] 5 mg PO DAILY #30 tab Continue Cholecalciferol [Vitamin D3 (25 Mcg = 1000 Iu)] 5,000 unit PO DAILY Aspirin 81 mg PO DAILY predniSONE 5 mg PO DAILY Metoprolol Succinate [Toprol XL] 25 mg PO DAILY Alendronate Sodium [Fosamax] 70 mg PO CRURY Budesonide-Formot 160-4.5 Mcg [Symbicort 160-4.5 Mcg Inhaler] 2 puff INHALATION RT-BID puff Cetirizine HCl [Zyrtec] 10 mg PO HS Multivitamin/Iron/Folic Acid [Centrum Adults Tablet] 1 tab PO DAILY Gabapentin [Neurontin] 300 mg PO HS Pramipexole Di-HCl [Mirapex] 1.5 mg PO AC-BID@0700,1200 metFORMIN HCL 1,000 mg PO BID Spironolactone [Aldactone] 50 mg PO DAILY PRN PRN Reason: Edema Magnesium Citrate 1,000 mg PO HS Albuterol Sulfate [Ventolin HFA] 2 puff INHALATION RT-QID PRN PRN Reason: Shortness Of Breath Ipratropium-Albuterol Nebulize [Duoneb 0.5 mg-3 mg/3 ml Soln] 3 ml INHALATION RT-QID PRN PRN Reason: Shortness Of Breath Furosemide [Lasix] 40 mg PO BID PRN PRN Reason: Edema Magnesium Citrate 1000mg 1,000 mg PO HS Discontinued Insulin Regular, Human [NovoLIN R] 24 unit SQ AC-LUNCH@1200 Insulin Regular, Human [NovoLIN R] 10 unit SQ HS Insulin Regular, Human [NovoLIN R] 12 unit SQ AC-BID@0800,1800 Insulin NPH Human Isophane [NovoLIN N] 24 units SQ HS Discharge Medication List Aspirin 81 mg PO DAILY 06/24/15 [History] Cholecalciferol [Vitamin D3 (25 Mcg = 1000 Iu)] 5,000 unit PO DAILY 06/24/15 [History] predniSONE 5 mg PO DAILY 10/18/16 [History] Metoprolol Succinate [Toprol XL] 25 mg PO DAILY 02/10/17 [History] Alendronate Sodium [Fosamax] 70 mg PO CURRY 06/14/17 [History] Budesonide-Formot 160-4.5 Mcg [Symbicort 160-4.5 Mcg Inhaler] 2 puff INHALATION RT-BID puff 08/05/17 [Rx] Cetirizine HCl [Zyrtec] 10 mg PO HS 10/08/17 [History] Gabapentin [Neurontin] 300 mg PO HS 04/09/19 [History] Magnesium Citrate 1,000 mg PO HS 04/09/19 [History] Multivitamin/Iron/Folic Acid [Centrum Adults Tablet] 1 tab PO DAILY 04/09/19 [History] Pramipexole Di-HCl [Mirapex] 1.5 mg PO AC-BID@0700,1200 04/09/19 [History] Spironolactone [Aldactone] 50 mg PO DAILY PRN 04/09/19 [History] metFORMIN HCL 1,000 mg PO BID 04/09/19 [History] Albuterol Sulfate [Ventolin HFA] 2 puff INHALATION RT-QID PRN 05/27/19 [History] Furosemide [Lasix] 40 mg PO BID PRN 05/27/19 [History] Ipratropium-Albuterol Nebulize [Duoneb 0.5 mg-3 mg/3 ml Soln] 3 ml INHALATION RT-QID PRN 05/27/19 [History] Magnesium Citrate 1000mg 1,000 mg PO HS 05/27/19 [History] Cefuroxime Axetil [Ceftin] 500 mg PO BID 3 Days #6 tab 05/31/19 [Rx] Insuln Asp Prt/Insulin Aspart [NovoLOG MIX 70-30 VIAL] 10 unit SQ AC-LUNCH #1 vial 05/31/19 [Rx] Insuln Asp Prt/Insulin Aspart [NovoLOG MIX 70-30 VIAL] 22 unit SQ AC-BID #1 vial 05/31/19 [Rx] Lisinopril [Zestril] 5 mg PO DAILY #30 tab 05/31/19 [Rx] predniSONE 0 mg PO DIRECTED #6 tab 05/31/19 [Rx] Follow up Appointment(s)/Referral(s): [facility], [Other] - 1 Week (Dr. Alvarado/ Dr. Bernstein/ Dr. Ramirez's office at [address] [place] [address] . Unable to make appointment as it is after office hours. Please call and schedule appointment in the morning of 06/01/19) Harry Abel DO [Primary Care Provider] - 1-2 days (Unable to make appointment as it is after office hours. Please call and schedule appointment in the morning of 06/01/19) Dakotah Vargas MD [REFERRING] - 1 Week (Unable to make appointment as it is after office hours. Please call and schedule appointment in the morning of 06/01/19) [facility] Visiting Nurse, [NON-STAFF] - 1-2 Days (Unable to make appointment as it is after office hours. Please call and schedule appointment in the morning of 06/01/19) Patient Instructions/Handouts: Pulmonary Edema (DC) Activity/Diet/Wound Care/Special Instructions: keep log ac- ac hs
--- NOTE | 2019-06-01 08:41 | CDI ---
Documentation Clarification Form Date: 05/29/2019 02:08:43 PM From: Ewa Arevalo RN CCDS Admit Date: 05/27/2019 08:25:00 PM Patient Name: Esme Gutierrez Visit Number: [id number] Discharge Date: ATTENTION: The Clinical Documentation Specialists (CDI) and [facility] Coding Staff appreciate your assistance in clarifying documentation. Please respond to the clarification below the line at the bottom and electronically sign. The CDI & [facility] Coding staff will review the response and follow-up if needed. Please note: Queries are made part of the Legal Health Record. If you have any questions, please contact the author of this message via ITS. 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 Patient has diminished breath sounds as well. Symmetrical chest expansion. Treatment: Solumedrol ivpb Q 8 Hrs; Lasix ivp Q 12 Hrs. Breathing tx 2/6 Duoneb Q4 Hrs; 2/6 Oxygen 4L nasal cannula In your professional opinion, can you please clarify if these findings signify one of the following conditions? * Acute Respiratory Failure * Acute Respiratory Distress * Acute Respiratory Insufficiency * Other Diagnosis, please specify * Unable to determine Specificity: If known, further specify (if known): With hypercapnia? (pCO2 >50 and pH <7.35) With hypoxia? (pO2 <60 mm Hg or SpO2 <91% on room air) (Last Query Form Revision: December 2018) MTDD
--- NOTE | 2019-06-02 10:56 | P.PN ---
Progress Note - Text Progress Note Date: 06/02/19 For documentation purposes, as I have already mentioned in my previous documentation patient had acute on chronic hypoxic respiratory failure secondary to acute on chronic diastolic congestive heart failure, and secondary to underlying interstitial lung disease/pulmonary sarcoidosis. This has been documented over and over on my previous notes, and this is the second time I'm dictating on this issue.
== END 2019-05-31 18:33 | disposition home health service (06) | DRG 177 ==
LOC: EC 17:20 → 3SCARD 20:25 → 2SICU 05-28 06:25
PROVIDERS: ADMIT Hospitalist; ATTEND Hospitalist
DX: J15.6 Pneumonia due to other Gram-negative bacteria (principal); I50.33 Acute on chronic diastolic (congestive) heart failure; J96.21 Acute and chronic respiratory failure with hypoxia; G04.89 Other myelitis; J45.41 Moderate persistent asthma with (acute) exacerbation; J44.0 Chronic obstructive pulmonary disease with (acute) lower respiratory infection; J44.1 Chronic obstructive pulmonary disease with (acute) exacerbation; L03.119 Cellulitis of unspecified part of limb; G61.81 Chronic inflammatory demyelinating polyneuritis; Z68.41 Body mass index [BMI] 40.0-44.9, adult; D86.0 Sarcoidosis of lung; E11.42 Type 2 diabetes mellitus with diabetic polyneuropathy; I11.0 Hypertensive heart disease with heart failure; J84.10 Pulmonary fibrosis, unspecified; K75.81 Nonalcoholic steatohepatitis (NASH); E03.9 Hypothyroidism, unspecified; E11.65 Type 2 diabetes mellitus with hyperglycemia; E66.9 Obesity, unspecified; E78.5 Hyperlipidemia, unspecified; F32.9 Major depressive disorder, single episode, unspecified; F40.240 Claustrophobia; G25.81 Restless legs syndrome; H91.90 Unspecified hearing loss, unspecified ear; I08.0 Rheumatic disorders of both mitral and aortic valves; I25.10 Atherosclerotic heart disease of native coronary artery without angina pectoris; I25.2 Old myocardial infarction; S00.83XA Contusion of other part of head, initial encounter; K21.9 Gastro-esophageal reflux disease without esophagitis; K57.30 Diverticulosis of large intestine without perforation or abscess without bleeding; M19.91 Primary osteoarthritis, unspecified site; M35.00 Sjogren syndrome, unspecified; M81.0 Age-related osteoporosis without current pathological fracture; K57.90 Diverticulosis of intestine, part unspecified, without perforation or abscess without bleeding; F41.9 Anxiety disorder, unspecified; Z87.442 Personal history of urinary calculi; Z79.4 Long term (current) use of insulin; Z79.51 Long term (current) use of inhaled steroids; Z79.82 Long term (current) use of aspirin; Z79.83 Long term (current) use of bisphosphonates; Z79.899 Other long term (current) drug therapy; Z86.73 Personal history of transient ischemic attack (TIA), and cerebral infarction without residual deficits; Z91.81 History of falling; Z88.1 Allergy status to other antibiotic agents; Z88.2 Allergy status to sulfonamides; Z87.01 Personal history of pneumonia (recurrent); Z88.8 Allergy status to other drugs, medicaments and biological substances; Z98.1 Arthrodesis status; Z90.49 Acquired absence of other specified parts of digestive tract; Z98.51 Tubal ligation status; Z85.828 Personal history of other malignant neoplasm of skin; Z98.49 Cataract extraction status, unspecified eye; Z96.1 Presence of intraocular lens; Z80.0 Family history of malignant neoplasm of digestive organs; Z80.3 Family history of malignant neoplasm of breast
CPT/HCPCS: 36415; 71045; 71046; 80048; 80053; 83605; 83735; 83880; 84484; 85025; 85027; 85610; 85730; 87040; 87502; 93005; 93306; 94640; 96374; 96375; 96376; 99291

== ENCOUNTER 2019-06-15 07:55 | Inpatient (IN) | payer MEDICARE, OTHER ==
--- NOTE | 2019-06-15 08:17 | ED ---
SOB HPI - General Source: patient, EMS, RN notes reviewed Mode of arrival: EMS Limitations: no limitations <Jethro Cohen - Last Filed: 06/15/19 10:08> <Antonio Gómez - Last Filed: 06/15/19 11:35> - General Chief Complaint: Shortness of Breath Stated Complaint: KIRA Time Seen by Provider: 06/15/19 08:09 - History of Present Illness Initial Comments: 74-year-old female presents emergency Department via EMS chief complaint of shortness of breath. Patient states that she is hospice few weeks ago states her cough never really resolved but states that her breathing worsened overnight. Patient states that she is having nonproductive cough states that she cannot catch her breath she also complains of orthopnea. Patient states she had a 2 pound weight gain days ago with states it's much greater now. She states she believes that she may came between 6 and 10 pounds. Patient denies any fevers or chills. Denies any nausea vomiting. Patient states she does have some mild chest tightness. (Jethro Cohen) - Related Data Home Medications Medication Instructions Recorded Confirmed Aspirin 81 mg PO DAILY 06/24/15 06/15/19 Cholecalciferol [Vitamin D3 (25 5,000 unit PO DAILY 06/24/15 06/15/19 Mcg = 1000 Iu)] predniSONE 5 mg PO DAILY 10/18/16 06/15/19 Metoprolol Succinate [Toprol XL] 25 mg PO DAILY 02/10/17 06/15/19 Alendronate Sodium [Fosamax] 70 mg PO CURRY 06/14/17 06/15/19 Cetirizine HCl [Zyrtec] 10 mg PO HS 10/08/17 06/15/19 Gabapentin [Neurontin] 300 mg PO HS 04/09/19 06/15/19 Magnesium Citrate 1,000 mg PO HS 04/09/19 06/15/19 Multivitamin/Iron/Folic Acid 1 tab PO DAILY 04/09/19 06/15/19 [Centrum Adults Tablet] Pramipexole Di-HCl [Mirapex] 1.5 mg PO AC-BID@0700,1200 04/09/19 06/15/19 Spironolactone [Aldactone] 50 mg PO DAILY PRN 04/09/19 06/15/19 metFORMIN HCL 1,000 mg PO BID 04/09/19 06/15/19 Albuterol Sulfate [Ventolin HFA] 2 puff INHALATION RT-QID PRN 05/27/19 06/15/19 Furosemide [Lasix] 40 mg PO BID PRN 05/27/19 06/15/19 Ipratropium-Albuterol Nebulize 3 ml INHALATION RT-QID PRN 05/27/19 06/15/19 [Duoneb 0.5 mg-3 mg/3 ml Soln] Previous Rx's Medication Instructions Recorded Budesonide-Formot 160-4.5 Mcg 2 puff INHALATION RT-BID puff 08/05/17 [Symbicort 160-4.5 Mcg Inhaler] Cefuroxime Axetil [Ceftin] 500 mg PO BID 3 Days #6 tab 05/31/19 Insuln Asp Prt/Insulin Aspart 10 unit SQ AC-LUNCH #1 vial 05/31/19 [NovoLOG MIX 70-30 VIAL] Insuln Asp Prt/Insulin Aspart 22 unit SQ AC-BID #1 vial 05/31/19 [NovoLOG MIX 70-30 VIAL] Lisinopril [Zestril] 5 mg PO DAILY #30 tab 05/31/19 Allergies Allergy/AdvReac Type Severity Reaction Status Date / Time erythromycin base Allergy Unknown Rash/Hives Verified 06/15/19 10:21 [Erythromycin Base] metoclopramide HCl Allergy Unknown Rash/Hives Verified 06/15/19 10:21 [From Reglan] Sulfa (Sulfonamide Allergy Unknown Rash/Hives Verified 06/15/19 10:21 Antibiotics) Review of Systems ROS Other: All systems not noted in ROS Statement are negative. <Jethro Cohen - Last Filed: 06/15/19 10:08> ROS Other: All systems not noted in ROS Statement are negative. <Antonio Gómez - Last Filed: 06/15/19 11:35> ROS Statement: Those systems with pertinent positive or pertinent negative responses have been documented in the HPI. 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 CELLULITIS LLE. aortic valve pb. Chronic back problems. 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 Last Myocardial Infarction Date:: unknown History of Any Multi-Drug Resistant Organisms: None Reported Past Surgical History: Back Surgery, Cholecystectomy, Heart Catheterization, Tubal Ligation Additional Past Surgical History / Comment(s): Bronchoscopies, cystoscopy , laminectomy total of 16 back sx including implanted pain stimulator, liver biopsy, cataract surgery , liver bx 2009 had ercp /stent in liver, skin ca removed. jonah carpal tunnel done ,heel spurs rt heel . thyroid bx(nodule) RING FINGER RIGHT HAND RIGHT. Colonoscopy 2009(2nd), disc fusion Past Anesthesia/Blood Transfusion Reactions: Motion Sickness Additional Past Anesthesia/Blood Transfusion Reaction / Comment(s): Claustrophobia. No history of blood transfusions. Patient was adopted, No know family HX. Past Psychological History: Anxiety, Depression Smoking Status: Never smoker Past Alcohol Use History: None Reported Past Drug Use History: None Reported - Past Family History Father History Unknown: Yes Additional Family Medical History / Comment(s): was adopted Mother History Unknown: Yes Family Medical History: Cancer Additional Family Medical History / Comment(s): GRANDFATHER HAD COLON CA. An aunt had breast cancer. <Jethro Cohen - Last Filed: 06/15/19 10:08> General Exam Limitations: no limitations General appearance: alert, in no apparent distress Head exam: Present: atraumatic, normocephalic, normal inspection Eye exam: Present: normal appearance, PERRL, EOMI. Absent: scleral icterus, conjunctival injection, periorbital swelling ENT exam: Present: normal exam, normal oropharynx, mucous membranes moist Neck exam: Present: normal inspection, full ROM. Absent: tenderness, meningismus, lymphadenopathy Respiratory exam: Present: rales, decreased breath sounds. Absent: normal lung sounds bilaterally, respiratory distress, wheezes, rhonchi, stridor Cardiovascular Exam: Present: regular rate, normal rhythm, systolic murmur (Aortic). Absent: normal heart sounds, diastolic murmur, rubs, gallop, clicks Extremities exam: Present: pedal edema (Erythema of the lower extremities, 2+ edema pulses equal bilaterally) Neurological exam: Present: alert Skin exam: Present: warm, dry, intact, normal color. Absent: rash <Jethro Cohen - Last Filed: 06/15/19 10:08> Course Vital Signs 06/15/19 06/15/19 06/15/19 07:56 07:59 10:58 Temperature 98.0 F Pulse Rate 86 89 Respiratory 16 22 16 Rate Blood Pressure 122/62 132/86 O2 Sat by Pulse 100 100 Oximetry Medical Decision Making - Lab Data Result diagrams: 06/15/19 08:00 06/15/19 08:00 - EKG Data -: EKG Interpreted by Me <Jethro Cohen - Last Filed: 06/15/19 10:08> - Lab Data Result diagrams: 06/15/19 08:00 06/15/19 08:00 <Antonio Gómez - Last Filed: 06/15/19 11:35> - Medical Decision Making 74-year-old female presented for dyspnea. Chest x-ray shows pulmonary edema. BNP is minimally elevated from prior. Patient does have a history of CHF consistent with her current symptoms. She does have a mildly elevated troponin though she has no current EKG changes no complaints of chest pain. Patient will be admitted for diuresis and further management. (Jethro Cohen) 74-year-old female history of CHF presenting with cough and dyspnea. Patient has bilateral Rales on exam, stable vitals, breathing room air. She has orthopnea and lower extremity swelling. Findings consistent with CHF. Patient has x-ray confirming pulmonary edema. She's given IV diuretics in the emergency department. She has a minimal troponin elevation which will be trended. She will be admitted for treatment of CHF exacerbation. Case discussed with Dr. Webster (Antonio Gómez) - Lab Data Lab Results 06/15/19 06/15/19 06/15/19 Range/Units 08:00 08:00 08:00 WBC 5.2 (3.8-10.6) k/uL RBC 3.98 (3.80-5.40) m/uL Hgb 12.4 (11.4-16.0) gm/dL Hct 38.3 (34.0-46.0) % MCV 96.4 (80.0-100.0) fL MCH 31.3 (25.0-35.0) pg MCHC 32.5 (31.0-37.0) g/dL RDW 13.9 (11.5-15.5) % Plt Count 74 L D (150-450) k/uL Neutrophils % 72 % Lymphocytes % 15 % Monocytes % 5 % Eosinophils % 4 % Basophils % 0 % Neutrophils # 3.8 (1.3-7.7) k/uL Lymphocytes # 0.8 L (1.0-4.8) k/uL Monocytes # 0.3 (0-1.0) k/uL Eosinophils # 0.2 (0-0.7) k/uL Basophils # 0.0 (0-0.2) k/uL Manual Slide Review Performed Poikilocytosis (manual Present Sodium 135 L (137-145) mmol/L Potassium 4.9 (3.5-5.1) mmol/L Chloride 107 (98-107) mmol/L Carbon Dioxide 22 (22-30) mmol/L Anion Gap 6 mmol/L BUN 34 H (7-17) mg/dL Creatinine 0.56 (0.52-1.04) mg/dL Est GFR (CKD-EPI)AfAm >90 (>60 ml/min/1.73 sqM) Est GFR (CKD-EPI)NonAf >90 (>60 ml/min/1.73 sqM) Glucose 210 H (74-99) mg/dL Plasma Lactic Acid Eddie 2.2 H* (0.7-2.0) mmol/L Calcium 8.9 (8.4-10.2) mg/dL Magnesium 1.6 (1.6-2.3) mg/dL Total Bilirubin 1.6 H (0.2-1.3) mg/dL AST 52 H (14-36) U/L ALT 38 H (4-34) U/L Alkaline Phosphatase 114 (38-126) U/L Troponin I (0.000-0.034) ng/mL NT-Pro-B Natriuret Pep pg/mL Total Protein 6.4 (6.3-8.2) g/dL Albumin 3.4 L (3.5-5.0) g/dL 06/15/19 06/15/19 Range/Units 08:00 09:15 WBC (3.8-10.6) k/uL RBC (3.80-5.40) m/uL Hgb (11.4-16.0) gm/dL Hct (34.0-46.0) % MCV (80.0-100.0) fL MCH (25.0-35.0) pg MCHC (31.0-37.0) g/dL RDW (11.5-15.5) % Plt Count (150-450) k/uL Neutrophils % % Lymphocytes % % Monocytes % % Eosinophils % % Basophils % % Neutrophils # (1.3-7.7) k/uL Lymphocytes # (1.0-4.8) k/uL Monocytes # (0-1.0) k/uL Eosinophils # (0-0.7) k/uL Basophils # (0-0.2) k/uL Manual Slide Review Poikilocytosis (manual Sodium (137-145) mmol/L Potassium (3.5-5.1) mmol/L Chloride (98-107) mmol/L Carbon Dioxide (22-30) mmol/L Anion Gap mmol/L BUN (7-17) mg/dL Creatinine (0.52-1.04) mg/dL Est GFR (CKD-EPI)AfAm (>60 ml/min/1.73 sqM) Est GFR (CKD-EPI)NonAf (>60 ml/min/1.73 sqM) Glucose (74-99) mg/dL Plasma Lactic Acid Eddie (0.7-2.0) mmol/L Calcium (8.4-10.2) mg/dL Magnesium (1.6-2.3) mg/dL Total Bilirubin (0.2-1.3) mg/dL AST (14-36) U/L ALT (4-34) U/L Alkaline Phosphatase (38-126) U/L Troponin I 0.055 H* (0.000-0.034) ng/mL NT-Pro-B Natriuret Pep 684 pg/mL Total Protein (6.3-8.2) g/dL Albumin (3.5-5.0) g/dL - EKG Data EKG Comments: EKG performed at 8:09 sinus tachycardia rate of 107 AL 156 QRS 96 QT/QTC 372/[address] elevation or depression, normal axis. (Jethro Cohen) Critical Care Time Critical Care Time: Yes Total Critical Care Time: 35 <Jethro Cohen - Last Filed: 06/15/19 10:08> Critical Care Time: Total of 35 minutes of critical care time were used initially evaluated patient, reviewed past medical history, according labs, EKG and chest x-ray. Patient mom to have acute pulmonary edema on x-ray. Patient was given Lasix, aspirin at this time. Patient patient's EKG was reviewed and no acute changes from prior. Patient will be admitted for diuresis, further management of her dyspnea, CHF. (Jethro Cohen) Disposition <Jethro Cohen - Last Filed: 06/15/19 10:08> Is patient prescribed a controlled substance at d/c from ED?: No Decision to Admit Reason: Admit from EC <Antonio Gómez - Last Filed: 06/15/19 11:35> Clinical Impression: Acute exacerbation of CHF (congestive heart failure) Disposition: ADMITTED IP TO THIS HOSP Condition: Stable
--- NOTE | 2019-06-15 08:31 | XR ---
EXAMINATION TYPE: XR chest 2V DATE OF EXAM: 06/15/2019 COMPARISON: June 11 HISTORY: Shortness of breath TECHNIQUE: Frontal and lateral views of the chest are obtained. FINDINGS: Scattered senescent parenchymal changes noted. Hyperinflation compatible with COPD. Progressive pulmonary venous congestion with scattered infiltrates and small effusions. Borderline ca rdiomegaly. Mediastinal structures are stable and grossly unremarkable. No evidence for hilar prominence. Degenerative changes dorsal spine. IMPRESSION: 1. The findings may reflect congestive failure. Underlying infiltrates of other etiology difficult to exclude. Correlate clinically.
[2019-06-15] MEDS ORDERED: FUROSEMIDE 10 MG/ML 4 ML VIAL IV STA (08:34)
[2019-06-15 08:41] LABS: ALT 38 U/L (4-34); AST 52 U/L (14-36); African American GFR (CKD) >90 (>60 ml/min/1.73 sqM); Albumin 3.4 g/dL (3.5-5.0); Alkaline Phosphatase 114 U/L (38-126); Anion Gap 6 mmol/L; Blood Urea Nitrogen 34 mg/dL (7-17); Calcium 8.9 mg/dL (8.4-10.2); Carbon Dioxide 22 mmol/L (22-30); Chloride 107 mmol/L (98-107); Glucose 210 mg/dL (74-99); Magnesium 1.6 mg/dL (1.6-2.3); Non-African American GFR(CKD) >90 (>60 ml/min/1.73 sqM); Sodium 135 mmol/L (137-145); Total Bilirubin 1.6 mg/dL (0.2-1.3); Total Protein 6.4 g/dL (6.3-8.2)
[2019-06-15 08:52] LABS: Basophils % (A) 0 %; Eosinophils # (A) 0.2 k/uL (0-0.7); Eosinophils % (A) 4 %; HCT 38.3 % (34.0-46.0); HGB 12.4 gm/dL (11.4-16.0); Lymphocytes # (A) 0.8 k/uL (1.0-4.8); Lymphocytes % (A) 15 %; MCH 31.3 pg (25.0-35.0); MCHC 32.5 g/dL (31.0-37.0); MCV 96.4 fL (80.0-100.0); Mean Platelet Volume 10.1; Monocytes # (A) 0.3 k/uL (0-1.0); Monocytes % (A) 5 %; Neutrophils # (A) 3.8 k/uL (1.3-7.7); Neutrophils % (A) 72 %; RBC 3.98 m/uL (3.80-5.40); RDW 13.9 % (11.5-15.5); WBC 5.2 k/uL (3.8-10.6)
[2019-06-15 08:56] LABS: Potassium 4.9 mmol/L (3.5-5.1)
[2019-06-15 09:20] LABS: Poikilocytosis (M) Present
[2019-06-15 09:21] LABS: Platelet Count 74 k/uL (150-450)
[2019-06-15] MEDS ORDERED: ASPIRIN 325 MG TAB PO STA (10:04)
[2019-06-15] MEDS ORDERED: SPIRONOLACTONE 25 MG TAB PO PRN (10:34)
[2019-06-15] MEDS: PRAMIPEXOLE 1 MG TAB PO SCH (12:00)
[2019-06-15 12:32] LABS: Glucose,Whole Blood 245 mg/dL (75-99)
[2019-06-15] MEDS: INSULN ASP PRT/INSULIN ASPART 100 UNIT/ML 10 ML VIAL SQ SCH ×2 (13:01→16:38)
[2019-06-15 14:46] VITALS: BMI 38.6
--- NOTE | 2019-06-15 15:40 | P.HPIM ---
History of Present Illness H&P Date: 06/15/19 Chief Complaint: Shortness of breath History of presenting complaint: This is a pleasant 74-year-old patient of Dr. Abel. 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 . Patient last night became increasingly short of breath cough congested chest. Not able to bring up any sputum. Had some chills. No fever decreased appetite and rundown. Decided to come in. Review of systems: GEN.: Tired, chills EYES: None HEENT: None NECK: None RESPIRATORY: As above CARDIOVASCULAR: None GASTROINTESTINAL: None GENITOURINARY: None MUSCULOSKELETAL: Joint pains LYMPHATICS: None HEMATOLOGICAL: None PSYCHIATRY: None NEUROLOGICAL: None DERMATOLOGICAL: chronic lower extremity redness Past medical history to include: Coronary artery disease, stroke, diabetes mellitus type 2, GERD hyperlipidemia, hypertension, Ary arthritis, VT, hypothyroid, sarcoidosis, tracheobronchomalacia, Sjogren syndrome, TAMIKA/transfers myelitis, nonalcoholic steatohepatitis, nephrolithiasis, osteoporosis, restless leg syndrome, anemia, diverticulosis, diabetes mellitus type II, hypertension, hyperlipidemia, hypothyroid, restless leg syndrome, CHF with diastolic dysfunction, moderate degree to aortic stenosis Social history: Recently , does not smoke or drink alcohol. Does have a walker and a cane Family history: patient is adopted Physical examination: VITAL SIGNS: 97.5, 107, 21, 120/54, 94% on room air GENERAL: BMI 38.7, sitting up in a chair, tired, EYES: Pupils equal. Conjunctiva normal. HEENT: External appearance of nose and ears normal, oral cavity grossly normal. NECK: JVD not raised; masses not palpable. HEART: First and second heart sounds are normal; minimal edema. LUNGS: Respiratory rate increased, decreased breath sounds ABDOMEN: Soft, nontender, liver spleen not palpable, no masses palpable. PSYCH: Alert and oriented x3; mood and affect slightly anxious NEUROLOGICAL: Cranial nerves grossly intact; no facial asymmetry, power and sensation grossly intact. LYMPHATICS: No lymph nodes palpable in the axilla and neck MUSCULOSKELETAL: Evidence of OA DERMATOLOGICAL: Bilateral lower extremity redness below the knee to the ankles INVESTIGATIONS, reviewed in the clinical context:: White count 5.2 hemoglobin 12.4 platelets 74 potassium 4.9 bun 34 creatinine 0.56 Lactic acid 2.2 proBNP 684 Troponin I 0.055 lactic acid 2.2 Chest x-ray film personally reviewed by me-bilateral diffuse infiltrates EKG tracing personally reviewed by me-normal sinus rhythm, poor R-wave progression Assessment: -This is a patient presents with shortness of breath cough congested chest.Has chills, no fever. No sputum production. This could be viral pneumonitis. We'll check for influenza. 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 -Chronic lower extremity cellulitis Plan: Home medications resumed. We'll send a swab for influenza A and B. We will use Silvadene cream for extremity with Kerlix and Osei wrap. Does not appear to be CHF. 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 CELLULITIS LLE. aortic valve pb. Chronic back problems. 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 Last Myocardial Infarction Date:: unknown History of Any Multi-Drug Resistant Organisms: None Reported Past Surgical History: Back Surgery, Cholecystectomy, Heart Catheterization, Tubal Ligation Additional Past Surgical History / Comment(s): Bronchoscopies, cystoscopy , laminectomy total of 16 back sx including implanted pain stimulator, liver biopsy, cataract surgery , liver bx 2009 had ercp /stent in liver, skin ca removed. jonah carpal tunnel done ,heel spurs rt heel . thyroid bx(nodule) RING FINGER RIGHT HAND RIGHT. Colonoscopy 2009(2nd), disc fusion Past Anesthesia/Blood Transfusion Reactions: Motion Sickness Additional Past Anesthesia/Blood Transfusion Reaction / Comment(s): Claustrophobia. No history of blood transfusions. Patient was adopted, No know family HX. Past Psychological History: Anxiety, Depression Smoking Status: Never smoker Past Alcohol Use History: None Reported Past Drug Use History: None Reported - Past Family History Father History Unknown: Yes Additional Family Medical History / Comment(s): was adopted Mother History Unknown: Yes Family Medical History: Cancer Additional Family Medical History / Comment(s): GRANDFATHER HAD COLON CA. An aunt had breast cancer. Medications and Allergies Home Medications Medication Instructions Recorded Confirmed Type Aspirin 81 mg PO DAILY 06/24/15 06/15/19 History Cholecalciferol [Vitamin D3 (25 5,000 unit PO DAILY 06/24/15 06/15/19 History Mcg = 1000 Iu)] predniSONE 5 mg PO DAILY 10/18/16 06/15/19 History Metoprolol Succinate [Toprol XL] 25 mg PO DAILY 02/10/17 06/15/19 History Alendronate Sodium [Fosamax] 70 mg PO CURRY 06/14/17 06/15/19 History Budesonide-Formot 160-4.5 Mcg 2 puff INHALATION RT-BID puff 08/05/17 06/15/19 Rx [Symbicort 160-4.5 Mcg Inhaler] Cetirizine HCl [Zyrtec] 10 mg PO HS 10/08/17 06/15/19 History Gabapentin [Neurontin] 300 mg PO HS 04/09/19 06/15/19 History Magnesium Citrate 1,000 mg PO HS 04/09/19 06/15/19 History Multivitamin/Iron/Folic Acid 1 tab PO DAILY 04/09/19 06/15/19 History [Centrum Adults Tablet] Pramipexole Di-HCl [Mirapex] 1.5 mg PO AC-BID@0700,1200 04/09/19 06/15/19 History Spironolactone [Aldactone] 50 mg PO DAILY PRN 04/09/19 06/15/19 History metFORMIN HCL 1,000 mg PO BID 04/09/19 06/15/19 History Albuterol Sulfate [Ventolin HFA] 2 puff INHALATION RT-QID PRN 05/27/19 06/15/19 History Furosemide [Lasix] 40 mg PO BID PRN 05/27/19 06/15/19 History Ipratropium-Albuterol Nebulize 3 ml INHALATION RT-QID PRN 05/27/19 06/15/19 History [Duoneb 0.5 mg-3 mg/3 ml Soln] Cefuroxime Axetil [Ceftin] 500 mg PO BID 3 Days #6 tab 05/31/19 06/15/19 Rx Insuln Asp Prt/Insulin Aspart 10 unit SQ AC-LUNCH #1 vial 05/31/19 06/15/19 Rx [NovoLOG MIX 70-30 VIAL] Insuln Asp Prt/Insulin Aspart 22 unit SQ AC-BID #1 vial 05/31/19 06/15/19 Rx [NovoLOG MIX 70-30 VIAL] Lisinopril [Zestril] 5 mg PO DAILY #30 tab 05/31/19 06/15/19 Rx Allergies Allergy/AdvReac Type Severity Reaction Status Date / Time erythromycin base Allergy Unknown Rash/Hives Verified 06/15/19 10:21 [Erythromycin Base] metoclopramide HCl Allergy Unknown Rash/Hives Verified 06/15/19 10:21 [From Reglan] Sulfa (Sulfonamide Allergy Unknown Rash/Hives Verified 06/15/19 10:21 Antibiotics) Physical Exam Vitals: Vital Signs Temp Pulse Resp BP Pulse Ox 06/15/19 07:59 22 06/15/19 07:56 98.0 F 86 16 122/62 100 Intake and Output 06/14/19 06/15/19 06/15/19 22:59 06:59 14:59 Other: Weight 83.915 kg Results CBC & Chem 7: 06/15/19 08:00 06/15/19 08:00 Labs: Abnormal Lab Results - Last 24 Hours (Table) 06/15/19 06/15/1906/15/20 Range/Units 08:00 08:00 08:00 Plt Count 74 L D (150-450) k/uL Lymphocytes # 0.8 L (1.0-4.8) k/uL Sodium 135 L (137-145) mmol/L BUN 34 H (7-17) mg/dL Glucose 210 H (74-99) mg/dL Plasma Lactic Acid Eddie 2.2 H* (0.7-2.0) mmol/L Total Bilirubin 1.6 H (0.2-1.3) mg/dL AST 52 H (14-36) U/L ALT 38 H (4-34) U/L Troponin I (0.000-0.034) ng/mL Albumin 3.4 L (3.5-5.0) g/dL 06/15/19 Range/Units 08:00 Plt Count (150-450) k/uL Lymphocytes # (1.0-4.8) k/uL Sodium (137-145) mmol/L BUN (7-17) mg/dL Glucose (74-99) mg/dL Plasma Lactic Acid Eddie (0.7-2.0) mmol/L Total Bilirubin (0.2-1.3) mg/dL AST (14-36) U/L ALT (4-34) U/L Troponin I 0.055 H* (0.000-0.034) ng/mL Albumin (3.5-5.0) g/dL
[2019-06-15] MEDS: metFORMIN 500 MG TAB PO SCH (16:38)
[2019-06-15] MEDS: OSELTAMIVIR 75 MG CAP PO SCH ×2 (16:38→21:38)
[2019-06-15 17:29] LABS: Glucose,Whole Blood 300 mg/dL (75-99)
[2019-06-15] MEDS: SYMBICORT 160-4.5 MCG INHALER INHALATION SCH (20:08)
[2019-06-15] MEDS: ALBUTEROL NEBULIZED 2.5 MG/3 ML INHALATION PRN (20:08)
[2019-06-15 20:13] LABS: Glucose,Whole Blood 317 mg/dL (75-99)
[2019-06-15] MEDS: INSULIN ASPART (NovoLOG) 100 UNIT/ML VIAL SQ SCH (20:56)
[2019-06-15] MEDS: LORATADINE 10 MG TAB PO SCH (20:57)
[2019-06-15] MEDS: FUROSEMIDE 10 MG/ML 4 ML VIAL IV SCH (20:57)
[2019-06-15] MEDS: GABAPENTIN 300 MG CAP PO SCH (20:57)
[2019-06-15] MEDS: INSULIN DETEMIR (LEVEMIR) 100 UNIT/ML SYR SQ SCH (20:57)
[2019-06-16] MEDS: PRAMIPEXOLE 1 MG TAB PO SCH ×2 (07:07→13:01)
[2019-06-16] MEDS: metFORMIN 500 MG TAB PO SCH ×2 (07:07→18:00)
[2019-06-16] MEDS: SYMBICORT 160-4.5 MCG INHALER INHALATION SCH ×2 (07:17→20:43)
[2019-06-16] MEDS: ALBUTEROL NEBULIZED 2.5 MG/3 ML INHALATION PRN ×4 (07:17→20:42)
[2019-06-16 07:42] LABS: Glucose,Whole Blood 136 mg/dL (75-99)
[2019-06-16] MEDS: INSULN ASP PRT/INSULIN ASPART 100 UNIT/ML 10 ML VIAL SQ SCH ×3 (08:04→17:59)
[2019-06-16] MEDS: METOPROLOL SUCCINATE (ER) 25 MG TAB.ER.24H PO SCH (08:04)
[2019-06-16] MEDS: CHOLECALCIFEROL 1,000 UNIT TAB PO SCH (08:04)
[2019-06-16] MEDS: ASPIRIN 325 MG TAB PO SCH (08:05)
[2019-06-16] MEDS: INSULIN ASPART (NovoLOG) 100 UNIT/ML VIAL SQ SCH ×4 (08:07→21:15)
[2019-06-16] MEDS: FUROSEMIDE 10 MG/ML 4 ML VIAL IV SCH ×2 (08:07→21:15)
[2019-06-16] MEDS: OSELTAMIVIR 75 MG CAP PO SCH (08:17)
[2019-06-16] MEDS ORDERED: predniSONE 5 MG TAB PO SCH (09:00)
[2019-06-16 12:32] LABS: Glucose,Whole Blood 250 mg/dL (75-99)
--- NOTE | 2019-06-16 13:01 | P.CNPUL ---
History of Present Illness Consult date: 06/16/19 Reason for consult: dyspnea, cough Chief complaint: Dyspnea, cough, congestion History of present illness: 74-year-old white female patient of Dr. Abel, with known history of chronic bronchiectasis, restrictive lung disease related to history of sarcoidosis, hypertension, tracheobronchomalacia, diabetes mellitus type 2, degenerative disc disease, Sjogren syndrome and nephrolithiasis. Outpatient PFT showed FVC of 2.27 or 96% of predicted, an FEV1 of 1.98 liters or 111% of predicted, with FEV1 to FVC ratio of 115 of predicted. Patient follows with Dr. Bernstein for her chronic lung conditions, and she is maintaining on a combination of DuoNeb nebulized treatments, Symbicort, maintenance dose of prednisone 5 mg daily. Patient also has history of aortic stenosis. Patient sarcoidosis is used to be quite severe at 1. and was involving her spinal cord, patient was treated with high doses of prednisone. Appears to be stable at this time. She was recently hospitalized for acute on chronic diastolic congestive heart failure, responded well to bronchodilators, IV steroids and diuretics, and was discharged home on a short course of oral antibiotics in the form of Ceftin 500 twice a day for 3 days, short prednisone taper, and her maintenance inhalers and nebulized treatments on 05/31/2019. Patient was doing well at home, feeling better, she saw Dr. Abel in follow-up last Saturday, she had completed her prednisone taper and antibiotics, and she was back on her maintenance dose of prednisone. She states she has been experiencing falls at home related to her bilateral leg weakness. And Dr. Grace discontinued her statins. On 2019 patient started experiencing increased shortness of breath, cough, but she is unable to bring up any phlegm. She was brought into the emergency department for joe luation per ambulance, denied any fever or chills, her O2 sat was 100% on 2 L, she is afebrile, chest x-ray showed progressive pulmonary venous congestion with scattered infiltrates and small bilateral pleural effusions. Labs revealed white blood cell count of 5.2, hemoglobin of 12.4, platelet count of 74, sodium was 135, the rest of electrolytes are within normal limits, BUN was 34 creatinine 0.56, plasma lactic acid was 2.9, proBNP was 684, troponins were elevated to 0.055, 0.041, and 0.0-1. Influenza screen was negative. Patient didn't complain of increased lower extremity edema, and note that she does have chronic lower extremity edema and chronic cellulitis involving bilateral lower extremities, she was started on IV Lasix at 40 mg every 12 hours, her maintenance Symbicort and DuoNeb nebulized treatments, she is on maintenance dose of prednisone and she was empirically placed on Tamiflu Review of Systems All systems: negative Constitutional: Denies chills, Denies fever Eyes: denies blurred vision, denies pain Ears, nose, mouth and throat: Denies headache, Denies sore throat Cardiovascular: Reports edema, Reports leg edema, Reports paroxysmal nocturnal dyspnea, Reports shortness of breath, Denies chest pain Respiratory: Reports congestion, Reports cough, Reports dyspnea, Reports respiratory infections Gastrointestinal: Denies abdominal pain, Denies diarrhea, Denies nausea, Denies vomiting Genitourinary: Denies dysuria, Denies hematuria Musculoskeletal: Reports frequent falls, Reports muscle weakness, Denies myalgias Integumentary: Reports rash, Denies pruritus Neurological: Reports weakness, Denies numbness Psychiatric: Denies anxiety, Denies depression Endocrine: Denies fatigue, Denies weight change Past Medical History Past Medical History: Asthma, Coronary Artery Disease (CAD), Cancer, Heart Failure, COPD, CVA/TIA, Diabetes Mellitus, GERD/Reflux, Hearing Disorder / Deafness, Hyperlipidemia, Hypertension, Liver Disease, Myocardial Infarction ([place]), Osteoarthritis (OA), Pneumonia, Respiratory Disorder, Skin Disorder, Thyroid Disorder Additional Past Medical History / Comment(s): Sarcoidosis, sjogrens syndrome, 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 CELLULITIS LLE. aortic valve pb. Chronic back problems. 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 Last Myocardial Infarction Date:: unknown History of Any Multi-Drug Resistant Organisms: None Reported Past Surgical History: Back Surgery, Cholecystectomy, Heart Catheterization, Tubal Ligation Additional Past Surgical History / Comment(s): Bronchoscopies, cystoscopy , laminectomy total of 16 back sx including implanted pain stimulator, liver biopsy, cataract surgery , liver bx 2008 had ercp /stent in liver, skin ca removed. jonah carpal tunnel done ,heel spurs rt heel . thyroid bx(nodule) RING FINGER RIGHT HAND RIGHT. Colonoscopy 2008(2nd), disc fusion Past Anesthesia/Blood Transfusion Reactions: Motion Sickness Additional Past Anesthesia/Blood Transfusion Reaction / Comment(s): Claustrophobia. No history of blood transfusions. Patient was adopted, No know family HX. Past Psychological History: Anxiety, Depression Smoking Status: Never smoker Past Alcohol Use History: None Reported Past Drug Use History: None Reported - Past Family History Father History Unknown: Yes Additional Family Medical History / Comment(s): was adopted Mother History Unknown: Yes Family Medical History: Cancer Additional Family Medical History / Comment(s): GRANDFATHER HAD COLON CA. An aunt had breast cancer. Medications and Allergies Home Medications Medication Instructions Recorded Confirmed Type Aspirin 81 mg PO DAILY 06/24/15 06/15/19 History Cholecalciferol [Vitamin D3 (25 5,000 unit PO DAILY 06/24/15 06/15/19 History Mcg = 1000 Iu)] predniSONE 5 mg PO DAILY 10/18/16 06/15/19 History Metoprolol Succinate [Toprol XL] 25 mg PO DAILY 02/10/17 06/15/19 History Alendronate Sodium [Fosamax] 70 mg PO CURRY 06/14/17 06/15/19 History Budesonide-Formot 160-4.5 Mcg 2 puff INHALATION RT-BID puff 08/05/17 06/15/19 Rx [Symbicort 160-4.5 Mcg Inhaler] Cetirizine HCl [Zyrtec] 10 mg PO HS 10/08/17 06/15/19 History Gabapentin [Neurontin] 300 mg PO HS 04/09/19 06/15/19 History Magnesium Citrate 1,000 mg PO HS 04/09/19 06/15/19 History Multivitamin/Iron/Folic Acid 1 tab PO DAILY 04/09/19 06/15/19 History [Centrum Adults Tablet] Pramipexole Di-HCl [Mirapex] 1.5 mg PO AC-BID@0700,1200 04/09/19 06/15/19 History Spironolactone [Aldactone] 50 mg PO DAILY PRN 04/09/19 06/15/19 History metFORMIN HCL 1,000 mg PO BID 04/09/19 06/15/19 History Albuterol Sulfate [Ventolin HFA] 2 puff INHALATION RT-QID PRN 05/27/19 06/15/19 History Furosemide [Lasix] 40 mg PO BID PRN 05/27/19 06/15/19 History Ipratropium-Albuterol Nebulize 3 ml INHALATION RT-QID PRN 05/27/19 06/15/19 History [Duoneb 0.5 mg-3 mg/3 ml Soln] Cefuroxime Axetil [Ceftin] 500 mg PO BID 3 Days #6 tab 05/31/19 06/15/19 Rx Insuln Asp Prt/Insulin Aspart 10 unit SQ AC-LUNCH #1 vial 05/31/19 06/15/19 Rx [NovoLOG MIX 70-30 VIAL] Insuln Asp Prt/Insulin Aspart 22 unit SQ AC-BID #1 vial 05/31/19 06/15/19 Rx [NovoLOG MIX 70-30 VIAL] Lisinopril [Zestril] 5 mg PO DAILY #30 tab 05/31/19 06/15/19 Rx Allergies Allergy/AdvReac Type Severity Reaction Status Date / Time erythromycin base Allergy Unknown Rash/Hives Verified 06/15/19 10:21 [Erythromycin Base] metoclopramide HCl Allergy Unknown Rash/Hives Verified 06/15/19 10:21 [From Reglan] Sulfa (Sulfonamide Allergy Unknown Rash/Hives Verified 06/15/19 10:21 Antibiotics) Physical Exam Vitals: Vital Signs Temp Pulse Pulse Resp BP Pulse Ox 06/16/19 12:13 88 06/16/19 11:14 92 06/16/19 08:00 98.3 F 96 16 99/45 97 06/16/19 07:30 80 06/16/19 07:19 76 06/16/19 03:13 98.7 F 94 18 109/55 95 06/15/19 23:45 98.8 F 95 18 110/56 93 L 06/15/19 20:17 78 18 06/15/19 20:09 77 18 06/15/19 19:40 99.6 F 103 H 18 107/55 95 06/15/19 16:00 98.1 F 98 18 118/57 98 06/15/19 15:06 102 H Intake and Output 06/15/19 06/16/19 06/16/19 22:59 06:59 14:59 Other: # Voids 2 GENERAL EXAM: Alert, very pleasant, 74-year-old white female, currently on room air, with a pulse ox of 97%, comfortable in no apparent distress. HEAD: Normocephalic/atraumatic. EYES: Normal reaction of pupils, equal size. Conjunctiva pink, sclera white. NOSE: Clear with pink turbinates. THROAT: No erythema or exudates. NECK: No masses, no JVD, no thyroid enlargement, no adenopathy. CHEST: No chest wall deformity. Symmetrical expansion. LUNGS: Equal air entry with crackles at bilateral lower bases CVS: Regular rate and rhythm, normal S1 and S2, no gallops, no murmurs, no rubs ABDOMEN: Soft, nontender. No hepatosplenomegaly, normal bowel sounds, no guarding or rigidity. EXTREMITIES: No clubbing, nonpitting edema bilateral lower extremities with changes of chronic cellulitis, no cyanosis, 2+ pulses and upper and lower extremities. MUSCULOSKELETAL: Muscle strength and tone normal. SPINE: No scoliosis or deformity SKIN: Lower extremity cellulitis and nonpitting edema CENTRAL NERVOUS SYSTEM: Alert and oriented -3. No focal deficits, tone is normal in all 4 extremities. PSYCHIATRIC: Alert and oriented -3. Appropriate affect. Intact judgment and insight. Results - Laboratory Findings CBC and BMP: 06/15/19 08:00 06/15/19 08:00 Abnormal lab findings: Abnormal Labs 06/15/19 06/15/19 06/15/19 08:00 08:00 08:00 Plt Count 74 L D Lymphocytes # 0.8 L Sodium 135 L BUN 34 H Glucose 210 H POC Glucose (mg/dL) Plasma Lactic Acid Eddie 2.2 H* Total Bilirubin 1.6 H AST 52 H ALT 38 H Troponin I Albumin 3.4 L 06/15/19 06/15/19 06/15/19 08:00 12:13 12:31 Plt Count Lymphocytes # Sodium BUN Glucose POC Glucose (mg/dL) 245 H Plasma Lactic Acid Eddie 2.2 H* Total Bilirubin AST ALT Troponin I 0.055 H* Albumin 06/15/19 06/15/19 06/15/19 14:00 15:56 17:28 Plt Count Lymphocytes # Sodium BUN Glucose POC Glucose (mg/dL) 300 H Plasma Lactic Acid Eddie 2.7 H* Total Bilirubin AST ALT Troponin I 0.041 H* Albumin 06/15/19 06/15/19 06/16/19 20:11 22:16 07:36 Plt Count Lymphocytes # Sodium BUN Glucose POC Glucose (mg/dL) 317 H 136 H Plasma Lactic Acid Eddie 2.9 H* Total Bilirubin AST ALT Troponin I Albumin - Diagnostic Findings Chest x-ray: report reviewed, image reviewed Assessment and Plan Plan: Assessment: #1. Acute exacerbation of chronic diastolic congestive heart failure, echocardiogram showed preserved left ventricular systolic function with EF of 65-70% moderate concentric left ventricular hypertrophy, moderate aortic st enosis, mild mitral regurgitation, mitral stenosis, mild tricuspid regurg, no evidence of pulmonary hypertension. Chest x-ray showed progressive pulmonary venous congestion with scattered infiltrates and small bilateral pleural effusions #2. Recent hospitalization for exacerbation of diastolic congestive heart failure and tracheobronchitis, patient was discharged home on O2 #3. Mild lactic acidosis, not related to sepsis, improved on today's labs #4. Mildly elevated troponins, related to CHF #5. Moderately severe aortic stenosis and moderate mitral stenosis #6. History of chronic bronchitis, chronic bronchiectasis, and tracheobronchomalacia #7. History of sarcoidosis, maintained on prednisone 5 mg, serum calcium is within normal limits at 8.9, appears to be stable, but no angiotensin level was repeated #8. 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 History of coronary artery disease #10. History of CVA #11. Type 2 diabetes #12. GERD without esophagitis #13. Hypertension #14. History of nonalcoholic steatohepatitis #15. History of sarcoid-related transverse myelitis #16. Recurrent falls, related to lower extremity muscle weakness possibly related to statin use which is currently on hold. Plan: Chest x-ray has been reviewed and is consistent with acute exacerbation of diastolic CHF, patient has been started on IV Lasix, she is breathing easier, still has some mild congestion, but no significant wheezing. Room air pulse ox is 95%, afebrile, influenza screen was negative, she had completed a course of oral antibiotics and prednisone taper continue with maintenance dose of prednisone 5 mg daily, she is in no acute distress. She has been experiencing increased weakness involving her lower extremities and experiencing falls related to that. Discharge planning to consider placement to subacute rehab after discharge. We'll continue to follow and make further recommendations based on her clinical course. Chest x-ray in the morning, daily labs I performed a history & physical examination of the patient and discussed their management with my nurse practitioner, Trudy Maldonado. I reviewed the nurse practitioner's note and agree with the documented findings and plan of care. Lung sounds are positive for diffuse wheezes throughout the lung muñiz. The findings and the impression was discussed with the patient. I attest to the documentation by the nurse practitioner. Time with Patient: Greater than 30
[2019-06-16] MEDS: LISINOPRIL 5 MG TAB PO SCH (13:26)
[2019-06-16 17:43] LABS: Glucose,Whole Blood 277 mg/dL (75-99)
[2019-06-16 20:51] LABS: Glucose,Whole Blood 294 mg/dL (75-99)
[2019-06-16] MEDS: GABAPENTIN 300 MG CAP PO SCH (21:15)
[2019-06-16] MEDS: LORATADINE 10 MG TAB PO SCH (21:15)
[2019-06-16] MEDS: INSULIN DETEMIR (LEVEMIR) 100 UNIT/ML SYR SQ SCH (21:15)
--- NOTE | 2019-06-16 21:50 | P.PN ---
Progress Note - Text Progress Note Date: 06/16/19 Chief Complaint: Shortness of breath History of presenting complaint: This is a pleasant 74-year-old patient of Dr. Abel. 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 . Patient last night became increasingly short of breath cough congested chest. Not able to bring up any sputum. Had some chills. No fever decreased appetite and rundown. Decided to come in. Patient was seen by Dr. Grace from neurology. She left me a message that on the MRI done in April was a question about some cord compression. Patient apparently has followed up with Dr. Faye.- Neurosurgeon. Admitted with bilateral pneumonitis, acute asthma exacerbation. Today-tired. The short of breath. Did tolerate some diet. Review of systems: Was done for constitutional, cardiovascular, GI, pulmonary. relevant finding as above Active Medications Albuterol Sulfate (Ventolin Nebulized) 2.5 mg INHALATION RT-QID PRN PRN Reason: Shortness Of Breath Last Admin: 06/16/19 20:42 Dose: 2.5 mg Documented by: Aspirin (Aspirin) 325 mg PO DAILY [facility] Last Admin: 06/16/19 08:05 Dose: 325 mg Documented by: Budesonide/Formoterol Fumarate (Symbicort 160-4.5 Mcg Inhaler) 2 puff INHALATION RT-BID [facility] Last Admin: 06/16/19 20:43 Dose: 2 puff Documented by: Cholecalciferol (Vitamin D3 (25 Mcg = 1000 Iu)) 5,000 unit PO DAILY [facility] Last Admin: 06/16/19 08:04 Dose: 5,000 unit Documented by: Furosemide (Lasix) 40 mg IV Q12H [facility] Last Admin: 06/16/19 21:15 Dose: 40 mg Documented by: Gabapentin (Neurontin) 300 mg PO HS [facility] Last Admin: 06/16/19 21:15 Dose: 300 mg Documented by: Insulin Aspart (Novolog Mix 70-30 Vial) 10 unit SQ AC-LUNCH [facility] Last Admin: 06/16/19 13:01 Dose: 10 unit Documented by: Insulin Aspart (Novolog Mix 70-30 Vial) 22 unit SQ AC-BID [facility] Last Admin: 06/16/19 17:59 Dose: 22 unit Documented by: Insulin Aspart (Novolog) 0 unit SQ ACHS [facility]; Protocol Last Admin: 06/16/19 21:15 Dose: 5 unit Documented by: Insulin Detemir (Levemir) 10 unit SQ [facility] Last Admin: 06/16/19 21:15 Dose: 10 unit Documented by: Lisinopril (Zestril) 5 mg PO DAILY [facility] Last Admin: 06/16/19 13:26 Dose: Not Given Documented by: Loratadine (Claritin) 10 mg PO HS [facility] Last Admin: 06/16/19 21:15 Dose: 10 mg Documented by: Metformin HCl (Glucophage) 1,000 mg PO AC-BID [facility] Last Admin: 06/16/19 18:00 Dose: 1,000 mg Documented by: Metoprolol Succinate (Toprol Xl) 25 mg PO DAILY [facility] Last Admin: 06/16/19 08:04 Dose: 25 mg Documented by: Pramipexole Dihydrochloride (Mirapex) 1.5 mg PO AC-BID@0700,1200 [facility] Last Admin: 06/16/19 13:01 Dose: 1.5 mg Documented by: Prednisone () 15 mg PO DAILY [facility] Spironolactone (Aldactone) 50 mg PO DAILY PRN PRN Reason: Edema Physical examination: VITAL SIGNS: 98, 94, 18, 05/19/2064, 96% room air GENERAL: BMI 38.7, sitting up in a chair, tired, EYES: Pupils equal. Conjunctiva normal. HEENT: External appearance of nose and ears normal, oral cavity grossly normal. NECK: JVD not raised; masses not palpable. HEART: First and second heart sounds are normal; minimal edema. LUNGS: Respiratory rate increased, decreased breath sounds ABDOMEN: Soft, nontender, liver spleen not palpable, no masses palpable. PSYCH: Alert and oriented x3; mood and affect slightly anxious NEUROLOGICAL: Cranial nerves grossly intact; no facial asymmetry, power and sensation grossly intact. MUSCULOSKELETAL: Evidence of OA DERMATOLOGICAL: Bilateral lower extremity redness below the knee to the ankles INVESTIGATIONS, reviewed in the clinical context:: Accu-Cheks noted Previous testing White count 5.2 hemoglobin 12.4 platelets 74 potassium 4.9 bun 34 creatinine 0.56 Lactic acid 2.2 proBNP 684 Troponin I 0.055 lactic acid 2.2 Chest x-ray film personally reviewed by me-bilateral diffuse infiltrates EKG tracing personally reviewed by me-normal sinus rhythm, poor R-wave progression Influenza type A and type B both negative Assessment: -This is a patient presents with shortness of breath cough congested chest.Has chills, no fever. No sputum production. This could be viral pneumonitis. 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 Doubt acute flareup proBNP is 684 -Coronary artery disease -Moderate persistent Asthma, with acute exacerbation -Diabetes mellitus type 2, chronically on insulin, -GERD -Hyperlipidemia -Essential hypertension -Primary osteoarthritis -Sjogren syndrome -Nonalcoholic steatohepatitis -Nephrolithiasis -Restless leg syndrome -Colonic Diverticulosis -Moderate aortic stenosis -Obesity BMI 40.8 -Troponin leak could be from viral myocarditis. -Chronic lower extremity cellulitis -Troponin leak from hemodynamic mismatch. Not acute coronary syndrome Plan: We'll discuss the patient about cervical spinal stenosis and about Dr. Faye. Dr. Rendon. The patient on IV Lasix. Patient is also on oral prednisone. Bronchodilators.
[2019-06-16] MEDS: ALBUTEROL NEBULIZED 2.5 MG/3 ML INHALATION SCH (23:41)
[2019-06-17] MEDS: metFORMIN 500 MG TAB PO SCH ×2 (07:00→18:17)
[2019-06-17 07:20] LABS: African American GFR (CKD) >90 (>60 ml/min/1.73 sqM); Anion Gap 7 mmol/L; Blood Urea Nitrogen 26 mg/dL (7-17); Calcium 9.1 mg/dL (8.4-10.2); Carbon Dioxide 26 mmol/L (22-30); Chloride 102 mmol/L (98-107); Glucose 85 mg/dL (74-99); Non-African American GFR(CKD) >90 (>60 ml/min/1.73 sqM); Sodium 135 mmol/L (137-145)
[2019-06-17 08:06] LABS: Glucose,Whole Blood 89 mg/dL (75-99)
[2019-06-17] MEDS: INSULIN ASPART (NovoLOG) 100 UNIT/ML VIAL SQ SCH ×4 (08:15→20:34)
[2019-06-17] MEDS: SYMBICORT 160-4.5 MCG INHALER INHALATION SCH ×2 (08:23→20:14)
[2019-06-17] MEDS: ALBUTEROL NEBULIZED 2.5 MG/3 ML INHALATION SCH ×4 (08:23→20:14)
[2019-06-17] MEDS: CHOLECALCIFEROL 1,000 UNIT TAB PO SCH (08:24)
[2019-06-17] MEDS: LISINOPRIL 5 MG TAB PO SCH (08:24)
[2019-06-17] MEDS: ASPIRIN 325 MG TAB PO SCH (08:24)
[2019-06-17] MEDS: METOPROLOL SUCCINATE (ER) 25 MG TAB.ER.24H PO SCH (08:24)
[2019-06-17] MEDS: INSULN ASP PRT/INSULIN ASPART 100 UNIT/ML 10 ML VIAL SQ SCH ×3 (08:25→18:17)
[2019-06-17] MEDS: FUROSEMIDE 10 MG/ML 4 ML VIAL IV SCH ×2 (08:25→20:33)
--- NOTE | 2019-06-17 08:40 | XR ---
EXAMINATION TYPE: XR chest 2V DATE OF EXAM: 06/17/2019 COMPARISON: 06/15/2019 INDICATION: Follow up steps, CHF TECHNIQUE: Frontal and lateral views of the chest are obtained. FINDINGS: The heart size is normal. The pulmonary vasculature is upper limits of normal. Diffuse mild increased lung markings are present. This is slightly greater in the lower lung muñiz. Overall, there is slight improvement. IMPRESSION: 1. Mild improving bilateral lung infiltrates greater at the bases. Atypical pulmonary edema, atelecta sis, pneumonia could be considered. Continued follow-up is recommended.
[2019-06-17] MEDS: PRAMIPEXOLE 1 MG TAB PO SCH ×2 (08:57→13:28)
[2019-06-17] MEDS: predniSONE 5 MG TAB PO SCH (08:57)
--- NOTE | 2019-06-17 10:58 | CDI ---
Documentation Clarification Form Date: 06/17/2019 10:40:22 AM From: Ewa Arevalo RN CCDS Admit Date: 06/15/2019 10:04:00 AM Patient Name: Esme Gutierrez Visit Number: [id number] Discharge Date: ATTENTION: The Clinical Documentation Specialists (CDI) and [facility] Coding Staff appreciate your assistance in clarifying documentation. Please respond to the clarification below the line at the bottom and electronically sign. The CDI & [facility] Coding staff will review the response and follow-up if needed. Please note: Queries are made part of the Legal Health Record. If you have any questions, please contact the author of this message via ITS. Dr. Ronan Webster Conflicting documentation has been found in the medical record: Chronic congestive heart failure from diastolic dysfunction 65-70%. Doubt acute flareup proBNP is 684 in H & P and in 06/16 PN Acute exacerbation of chronic diastolic congestive heart failure Pulmonary Consult 06/16 History/Risk Factors: 74-year-old female presents to the ED with cough and congested chest. Medical History DM2, Asthma, Diastolic CHF and cellulitis. Clinical Indicators: 05/28 Echocardiogram moderate concentric left ventricular hypertrophy. Overall left ventricular systolic function is normal with an EF 65-70% Treatment: 06/15 Lasix 40mg Iv Q 12 Hours 06/16 Lisinopril 5mg po daily Toprol XL 25mg po daily In your opinion, what is the most clinically appropriate diagnosis for this patient? * Acute on Chronic Diastolic Heart Failure * Chronic Diastolic Heart Failure * Other explanation of clinical findings * Unable to determine (no explanation for clinical findings) (Last Revision: July 2017) possible acute on chronic diastolic heart failure MTDD
--- NOTE | 2019-06-17 11:23 | P.PN ---
Subjective Progress Note Date: 06/17/19 74-year-old white female patient of Dr. Abel, with known history of chronic bronchiectasis, restrictive lung disease related to history of sarcoidosis, hypertension, tracheobronchomalacia, diabetes mellitus type 2, degenerative disc disease, Sjogren syndrome and nephrolithiasis. Outpatient PFT showed FVC of 2.27 or 96% of predicted, an FEV1 of 1.98 liters or 111% of predicted, with FEV1 to FVC ratio of 115 of predicted. Patient follows with Dr. Bernstein for her chronic lung conditions, and she is maintaining on a combination of DuoNeb nebulized treatments, Symbicort, maintenance dose of prednisone 5 mg daily. Patient also has history of aortic stenosis. Patient sarcoidosis is used to be quite severe at 1. and was involving her spinal cord, patient was treated with high doses of prednisone. Appears to be stable at this time. She was recently hospitalized for acute on chronic diastolic congestive heart failure, responded well to bronchodilators, IV steroids and diuretics, and was discharged home on a short course of oral antibiotics in the form of Ceftin 500 twice a day for 3 days, short prednisone taper, and her maintenance inhalers and nebulized treatments on 05/31/2019. Patient was doing well at home, feeling better, she saw Dr. Abel in follow-up last Saturday, she had completed her prednisone taper and antibiotics, and she was back on her maintenance dose of prednisone. She states she has been experiencing falls at home related to her bilateral leg weakness. And Dr. Grace discontinued her statins. On O2 2019 patient started experiencing increased shortness of breath, cough, but she is unable to bring up any phlegm. She was brought into the emergency department for evaluation per ambulance, denied any fever or chills, her O2 sat was 100% on 2 L, she is afebrile, chest x-ray showed progressive pulmonary venous congestion with scattered infiltrates and small bilateral pleural effusions. Labs revealed white blood cell count of 5.2, hemoglobin of 12.4, platelet count of 74, sodium was 135, the rest of electrolytes are within normal limits, BUN was 34 creatin ine 0.56, plasma lactic acid was 2.9, proBNP was 684, troponins were elevated to 0.055, 0.041, and 0.0-1. Influenza screen was negative. Patient didn't complain of increased lower extremity edema, and note that she does have chronic lower extremity edema and chronic cellulitis involving bilateral lower extremities, she was started on IV Lasix at 40 mg every 12 hours, her maintenance Symbicort and DuoNeb nebulized treatments, she is on maintenance dose of prednisone and she was empirically placed on Tamiflu On 06/17/2019 patient seen in follow-up on selective care unit, she is diuresing, she is breathing easier, still has significant redness and swelling in her lower extremities, lung sounds reveal scattered crackles, no wheezing on today's exam, she is ambulating, does have some mild exertional dyspnea but tolerates activity fairly well, she remains on IV Lasix of 40 mg every 12 hours, yesterday we increased her oral prednisone to 15 mg daily, and patient continues on breathing treatments. She is in -1020 ML fluid balance over the last 24 hours. Room air pulse ox is 92%, patient is ambulating with a walker independently, tolerates activity fairly well. His chest x-ray shows some improvement in the appearance of bilateral lung infiltrates Objective - Vital Signs Vital signs: Vital Signs Temp 99.1 F 06/16/19 20:00 Pulse 88 06/17/19 08:35 Resp 18 06/17/19 04:00 BP 129/60 06/17/19 04:00 Pulse Ox 92 L 06/17/19 04:00 Intake & Output 06/16/19 06/17/19 06/17/19 18:59 06:59 18:59 Intake Total 480 240 Output Total 900 600 800 Balance -420 -600 -560 Weight 89.2 kg Intake: Oral 480 240 Output: Urine 900 600 800 Other: # Voids 1 # Bowel Movements 0 - Exam GENERAL EXAM: Alert, very pleasant, 74-year-old white female, currently on room air, with a pulse ox of 92%, comfortable in no apparent distress. HEAD: Normocephalic/atraumatic. EYES: Normal reaction of pupils, equal size. Conjunctiva pink, sclera white. NOSE: Clear with pink turbinates. THROAT: No erythema or exudates. NECK: No masses, no JVD, no thyroid enlargement, no adenopathy. CHEST: No chest wall deformity. Symmetrical expansion. LUNGS: Equal air entry with crackles at bilateral lower bases CVS: Regular rate and rhythm, normal S1 and S2, no gallops, no murmurs, no rubs ABDOMEN: Soft, nontender. No hepatosplenomegaly, normal bowel sounds, no guarding or rigidity. EXTREMITIES: No clubbing, nonpitting edema bilateral lower extremities with changes of chronic cellulitis, no cyanosis, 2+ pulses and upper and lower extremities. MUSCULOSKELETAL: Muscle strength and tone normal. SPINE: No scoliosis or deformity SKIN: Lower extremity cellulitis and nonpitting edema CENTRAL NERVOUS SYSTEM: Alert and oriented -3. No focal deficits, tone is normal in all 4 extremities. PSYCHIATRIC: Alert and oriented -3. Appropriate affect. Intact judgment and insight. - Labs CBC & Chem 7: 06/15/19 08:00 06/17/19 06:47 Labs: Abnormal Lab Results - Last 24 Hours (Table) 06/16/19 06/16/19 06/16/19 Range/Units 12:17 17:21 20:48 Sodium (137-145) mmol/L BUN (7-17) mg/dL POC Glucose (mg/dL) 250 H 277 H 294 H (75-99) mg/dL 06/17/19 Range/Units 06:47 Sodium 135 L (137-145) mmol/L BUN 26 H (7-17) mg/dL POC Glucose (mg/dL) (75-99) mg/dL Assessment and Plan Plan: Assessment: #1. Acute exacerbation of chronic diastolic congestive heart failure, echocardiogram showed preserved left ventricular systolic function with EF of 65-70% moderate concentric left ventricular hypertrophy, moderate aortic stenosis, mild mitral regurgitation, mitral stenosis, mild tricuspid regurg, no evidence of pulmonary hypertension. Chest x-ray showed progressive pulmonary venous congestion with scattered infiltrates and small bilateral pleural effusions #2. Recent hospitalization for exacerbation of diastolic congestive heart failure and tracheobronchitis, patient was discharged home on O2 #3. Mild lactic acidosis, not related to sepsis, improved on today's labs #4. Mildly elevated troponins, related to CHF #5. Moderately severe aortic stenosis and moderate mitral stenosis #6. History of chronic bronchitis, chronic bronchiectasis, and tracheobronchomalacia #7. History of sarcoidosis, maintained on prednisone 5 mg, serum calcium is within normal limits at 8.9, appears to be stable, but no angiotensin level was repeated #8. 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 History of coronary artery disease #10. History of CVA #11. Type 2 diabetes #12. GERD without esophagitis #13. Hypertension #14. History of nonalcoholic steatohepatitis #15. History of sarcoid-related transverse myelitis #16. Recurrent falls, related to lower extremity muscle weakness possibly related to statin use which is currently on hold. Plan: Continue IV diuretics, continue prednisone at 15 mg daily, continue breathing treatments, patient is maintaining negative fluid balance, she is breathing easier, she is tolerating ambulation with a walker, today's chest x-ray has been reviewed showing improvement in appearance of bilateral infiltrates and fluid volume status. We'll continue to follow and make further recommendations. I performed a history & physical examination of the patient and discussed their management with my nurse practitioner, Trudy Maldonado. I reviewed the nurse practitioner's note and agree with the documented findings and plan of care. Lung sounds are positive for diffuse wheezes throughout the lung muñiz. The findings and the impression was discussed with the patient. I attest to the documentation by the nurse practitioner. Time with Patient: Less than 30
[2019-06-17 12:20] LABS: Glucose,Whole Blood 183 mg/dL (75-99)
--- NOTE | 2019-06-17 14:27 | P.CNOR ---
History of Present Illness - HPI Consult date: 06/17/19 Consult reason: other (Patient is a pleasant 74-year-old female who was admitted in regards to possible congestive heart failure. Patient has been having coughing and some shortness of breath with exertion. ) History of present illness: Patient is very pleasant 74-year-old female who was admitted in regards to possible congestive heart failure. She has been having cough and some shortness breath particularly with exertion and prolonged talking and decided to come in for evaluation. Apparently she has a very long history of spine issues including 14 surgeries at her lumbar spine with Dr. Palomo and 2 surgeries at her neck with Dr. Palomo as well as with Dr. Faye. She most recently had a surgery on her posterior cervical spine in August [address] Faye. She says she has been developing some weakness at her lower extremities subjectively and was asked for further evaluation with Dr. Grace who obtained an MRI of her cervical spine. The results of the spot MRI were somewhat limited due to her coughing and she has not been able to follow up yet with Dr. Faye. In the meantime she was having further cough and shortness breath and presented here to the hospital. Apparently we were counseled in regards to follow-up for her spine. She denies acute weakness. She denies acute change in her upper extremities. She denies acute change in her lower extremities other than significant swelling and cellulitis at her lower extremity is. She denies a change in bowel bladder function. She denies any acute neurologic loss. Review of Systems As stated per HPI. She does admit to some shortness of breath and persistent coughing. She has some dyspnea on exertion. She denies any new lower extremity weakness or upper extremity weakness. 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 CELLULITIS LLE. aortic valve pb. Chronic back problems. PAST [employer] HISTORY: She has no history of STDs. Last Myocardial Infarction Date:: unknown History of Any Multi-Drug Resistant Organisms: None Reported Past Surgical History: Back Surgery, Cholecystectomy, Heart Catheterization, Tubal Ligation Additional Past Surgical History / Comment(s): Bronchoscopies, cystoscopy , laminectomy total of 16 back sx including implanted pain stimulator, liver biopsy, cataract surgery , liver bx 2008 had ercp /stent in liver, skin ca removed. jonah carpal tunnel done ,heel spurs rt heel . thyroid bx(nodule) RING FINGER RIGHT HAND RIGHT. Colonoscopy 2008(2nd), disc fusion Past Anesthesia/Blood Transfusion Reactions: Motion Sickness Additional Past Anesthesia/Blood Transfusion Reaction / Comm: Claustrophobia. No history of blood transfusions. Patient was adopted, No know family HX. Past Psychological History: Anxiety, Depression Smoking Status: Never smoker Past Alcohol Use History: None Reported Past Drug Use History: None Reported - Past Family History Father History Unknown: Yes Additional Family Medical History / Comment(s): was adopted Mother History Unknown: Yes Family Medical History: Cancer Additional Family Medical History / Comment(s): GRANDFATHER HAD COLON CA. An aunt had breast cancer. Medications and Allergies Home Medications Medication Instructions Recorded Confirmed Type Aspirin 81 mg PO DAILY 06/24/15 06/15/19 History Cholecalciferol [Vitamin D3 (25 5,000 unit PO DAILY 06/24/15 06/15/19 History Mcg = 1000 Iu)] predniSONE 5 mg PO DAILY 10/18/16 06/15/19 History Metoprolol Succinate [Toprol XL] 25 mg PO DAILY 02/10/17 06/15/19 History Alendronate Sodium [Fosamax] 70 mg PO CURRY 06/14/17 06/15/19 History Budesonide-Formot 160-4.5 Mcg 2 puff INHALATION RT-BID puff 08/05/17 06/15/19 Rx [Symbicort 160-4.5 Mcg Inhaler] Cetirizine HCl [Zyrtec] 10 mg PO HS 10/08/17 06/15/19 History Gabapentin [Neurontin] 300 mg PO HS 04/09/19 06/15/19 History Magnesium Citrate 1,000 mg PO HS 04/09/19 06/15/19 History Multivitamin/Iron/Folic Acid 1 tab PO DAILY 04/09/19 06/15/19 History [Centrum Adults Tablet] Pramipexole Di-HCl [Mirapex] 1.5 mg PO AC-BID@0700,1200 04/09/19 06/15/19 History Spironolactone [Aldactone] 50 mg PO DAILY PRN 04/09/19 06/15/19 History metFORMIN HCL 1,000 mg PO BID 04/09/19 06/15/19 History Albuterol Sulfate [Ventolin HFA] 2 puff INHALATION RT-QID PRN 05/27/19 06/15/19 History Furosemide [Lasix] 40 mg PO BID PRN 05/27/19 06/15/19 History Ipratropium-Albuterol Nebulize 3 ml INHALATION RT-QID PRN 05/27/19 06/15/19 History [Duoneb 0.5 mg-3 mg/3 ml Soln] Cefuroxime Axetil [Ceftin] 500 mg PO BID 3 Days #6 tab 05/31/19 06/15/19 Rx Insuln Asp Prt/Insulin Aspart 10 unit SQ AC-LUNCH #1 vial 05/31/19 06/15/19 Rx [NovoLOG MIX 70-30 VIAL] Insuln Asp Prt/Insulin Aspart 22 unit SQ AC-BID #1 vial 05/31/19 06/15/19 Rx [NovoLOG MIX 70-30 VIAL] Lisinopril [Zestril] 5 mg PO DAILY #30 tab 05/31/19 06/15/19 Rx Allergies Allergy/AdvReac Type Severity Reaction Status Date / Time erythromycin base Allergy Unknown Rash/Hives Verified 06/15/19 10:21 [Erythromycin Base] metoclopramide HCl Allergy Unknown Rash/Hives Verified 06/15/19 10:21 [From Reglan] Sulfa (Sulfonamide Allergy Unknown Rash/Hives Verified 06/15/19 10:21 Antibiotics) Physical Examination Osteopathic Statement: *. No significant issues noted on an osteopathic structural exam other than those noted in the History and Physical/Consult. - C Spine: dermatomal strength & reflexes bilateral Shoulder strength: flexion: 5/5 (At her neck she has well-healed anterior and posterior incision site. There is no erythema there is no swelling there is no drainage. Her neck has some limited motion due to her multiple fusions. Her upper extremities have good motion throughout. She is able to abduct and extend fully. She has full active has range of motion in her shoulders wrist hands and fingers. She has negative Loida's. She has negative upper motor neuron signs. She is no hyperreflexia. Her lower extremities her back is well-healed incisions. She has bilateral lower extremity swelling which is quite significant for her. She has some cellulitic change at her bilateral calves. She does have sustained dorsal to plantar flexion and EHL intact. She is no hyperreflexia. She has been ambulatory into the hallways with her walker.) Results - Labs Labs: Abnormal Lab Results - Last 24 Hours (Table) 06/16/19 06/16/19 06/17/19 Range/Units 17:21 20:48 06:47 Sodium 135 L (137-145) mmol/L BUN 26 H (7-17) mg/dL POC Glucose (mg/dL) 277 H 294 H (75-99) mg/dL 06/17/19 Range/Units 12:17 Sodium (137-145) mmol/L BUN (7-17) mg/dL POC Glucose (mg/dL) 183 H (75-99) mg/dL H & H 06/15/19 Range/Units 08:00 Hgb 12.4 (11.4-16.0) gm/dL Hct 38.3 (34.0-46.0) % Result Diagrams: 06/15/19 08:00 06/17/19 06:47 - Diagnostic results Cervical MRI with/without contrast: report reviewed, image reviewed (She had a cervical MRI 05/18/2019 that was ordered by Dr. Grace and exposed the followed up with Dr. Faye. She has not been able to see Dr. Faey yet. The results are somewhat limited due to her motion during the exam. She says she plans on getting a repeat MRI which would be appropriate. She is status post multiple level fusion with from C3 to C6. She is posterior fusion from C2 3 and anterior fusion from C36. There is some disc degeneration C6 7 with some foraminal encroachment. There is some pannus formation behind the odontoid at C1.) Assessment and Plan Assessment: Chronic cervical and lumbar spondylosis with multiple fusions perform a Dr. Shabana Faye Recent cervical spine fusion in August [address] Faye Multiple lumbar fusions with Dr. Palomo Possible congestive heart failure which is being worked up with medicine Plan: Chronic cervical and lumbar spondylosis with multiple fusions perform a Dr. Palomo and Dr. Faye Recent cervical spine fusion in August [address] Faye Multiple lumbar fusions with Dr. Palomo Possible congestive heart failure which is being worked up with medicine The patient is currently still under the care with Dr. Faye in regards to her cervical spine. Apparently she had a delayed union at her more recent cervical spine surgery and has a bone stimulator for this. She has not had follow-up with Dr. Faye since her cervical MRI but plans to do so. She does have some what diminished results in terms of the quality of the MRI given her motion during the exam but she should follow-up with her own spine surgeon in this regard to consider repeat imaging. She is comfortable with further follow-up with her own spine surgeon and I think that is appropriate. She's not having acute neurologic change or loss at this point and I think it is okay for her to mobilize to tolerance as she has been doing.
[2019-06-17 17:07] LABS: Glucose,Whole Blood 296 mg/dL (75-99)
[2019-06-17 20:29] LABS: Glucose,Whole Blood 272 mg/dL (75-99)
[2019-06-17] MEDS: GABAPENTIN 300 MG CAP PO SCH (20:34)
[2019-06-17] MEDS: LORATADINE 10 MG TAB PO SCH (20:34)
[2019-06-17] MEDS: INSULIN DETEMIR (LEVEMIR) 100 UNIT/ML SYR SQ SCH (20:34)
--- NOTE | 2019-06-17 22:12 | P.PN ---
Progress Note - Text Progress Note Date: 06/17/19 Chief Complaint: Shortness of breath History of presenting complaint: This is a pleasant 74-year-old patient of Dr. Abel. 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 . Patient last night became increasingly short of breath cough congested chest. Not able to bring up any sputum. Had some chills. No fever decreased appetite and rundown. Decided to come in. Patient was seen by Dr. Grace from neurology. She left me a message that on the MRI done in April was a question about some cord compression. Patient apparently has followed up with Dr. Faye.- Neurosurgeon. Patient did inform me that she did have cervical spine surgery.. Admitted with bilateral pneumonitis, acute asthma exacerbation. Today-breathing is significantly improved. Did use a walker walking are all reviewed. Orthopedic consultation noted Review of systems: Was done for constitutional, cardiovascular, GI, pulmonary. relevant finding as above Active Medications Albuterol Sulfate (Ventolin Nebulized) 2.5 mg INHALATION RT-QID [facility] Last Admin: 06/17/19 20:14 Dose: 2.5 mg Documented by: Aspirin (Aspirin) 325 mg PO DAILY [facility] Last Admin: 06/17/19 08:24 Dose: 325 mg Documented by: Budesonide/Formoterol Fumarate (Symbicort 160-4.5 Mcg Inhaler) 2 puff INHALATION RT-BID [facility] Last Admin: 06/17/19 20:14 Dose: 2 puff Documented by: Cholecalciferol (Vitamin D3 (25 Mcg = 1000 Iu)) 5,000 unit PO DAILY [facility] Last Admin: 06/17/19 08:24 Dose: 5,000 unit Documented by: Furosemide (Lasix) 40 mg IV Q12H [facility] Last Admin: 06/17/19 20:33 Dose: 40 mg Documented by: Gabapentin (Neurontin) 300 mg PO HS [facility] Last Admin: 06/17/19 20:34 Dose: 300 mg Documented by: Insulin Aspart (Novolog Mix 70-30 Vial) 10 unit SQ AC-LUNCH [facility] Last Admin: 06/17/19 13:30 Dose: 10 unit Documented by: Insulin Aspart (Novolog Mix 70-30 Vial) 22 unit SQ AC-BID [facility] Last Admin: 06/17/19 18:17 Dose: 22 unit Documented by: Insulin Aspart (Novolog) 0 unit SQ ACHS [facility]; Protocol Last Admin: 06/17/19 20:34 Dose: 4 unit Documented by: Insulin Detemir (Levemir) 10 unit SQ [facility] Last Admin: 06/17/19 20:34 Dose: 10 unit Documented by: Lisinopril (Zestril) 5 mg PO DAILY [facility] Last Admin: 06/17/19 08:24 Dose: 5 mg Documented by: Loratadine (Claritin) 10 mg PO HS [facility] Last Admin: 06/17/19 20:34 Dose: 10 mg Documented by: Metformin HCl (Glucophage) 1,000 mg PO AC-BID [facility] Last Admin: 06/17/19 18:17 Dose: 1,000 mg Documented by: Metoprolol Succinate (Toprol Xl) 25 mg PO DAILY [facility] Last Admin: 06/17/19 08:24 Dose: 25 mg Documented by: Pramipexole Dihydrochloride (Mirapex) 1.5 mg PO AC-BID@0700,1200 [facility] Last Admin: 06/17/19 13:28 Dose: 1.5 mg Documented by: Prednisone () 15 mg PO DAILY [facility] Last Admin: 06/17/19 08:57 Dose: 15 mg Documented by: Spironolactone (Aldactone) 50 mg PO DAILY PRN PRN Reason: Edema Physical examination: VITAL SIGNS: 98.4, 89, 18, 94/52, 92% room air GENERAL: BMI 41.1, sitting up in a chair, sitting comfortable EYES: Pupils equal. Conjunctiva normal. HEENT: External appearance of nose and ears normal, oral cavity grossly normal. NECK: JVD not raised; masses not palpable. HEART: First and second heart sounds are normal; minimal edema. LUNGS: Respiratory rate increased, improved air entry ABDOMEN: Soft, nontender, liver spleen not palpable, no masses palpable. PSYCH: Alert and oriented x3; mood and affect slightly anxious NEUROLOGICAL: Cranial nerves grossly intact; no facial asymmetry, power and sensation grossly intact. Patient is not hyperreflexic MUSCULOSKELETAL: Evidence of OA DERMATOLOGICAL: Bilateral lower extremity redness below the knee to the ankles INVESTIGATIONS, reviewed in the clinical context:: Bun 26 creatinine 0.58 Previous testing White count 5.2 hemoglobin 12.4 platelets 74 potassium 4.9 bun 34 creatinine 0.56 Lactic acid 2.2 proBNP 684 Troponin I 0.055 lactic acid 2.2 Chest x-ray film personally reviewed by me-bilateral diffuse infiltrates EKG tracing personally reviewed by me-normal sinus rhythm, poor R-wave progression Influenza type A and type B both negative Assessment: -Possibly viral pneumonitis. 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 Doubt acute flareup proBNP is 684 -Coronary artery disease -Moderate persistent Asthma, with acute exacerbation -Diabetes mellitus type 2, chronically on insulin, -GERD -Hyperlipidemia -Essential hypertension -Primary osteoarthritis -Sjogren syndrome -Nonalcoholic steatohepatitis -Nephrolithiasis -Restless leg syndrome -Colonic Diverticulosis -Moderate aortic stenosis -Obesity BMI 40.8 -Troponin leak could be from viral myocarditis. -Chronic lower extremity cellulitis -Troponin leak from hemodynamic mismatch. Not acute coronary syndrome -Possible mild spinal cord compression as per Dr. Grace as per review of MRI of the spine. Patient to follow-up with Dr. Faye Plan: Did discuss with patient about Dr. Mason message about the cervical MRI.. She will contact Dr. Faye. Other medications to continue. Possible rehab tomorrow.
[2019-06-18 06:19] LABS: African American GFR (CKD) >90 (>60 ml/min/1.73 sqM); Anion Gap 5 mmol/L; Blood Urea Nitrogen 33 mg/dL (7-17); Calcium 9.3 mg/dL (8.4-10.2); Carbon Dioxide 28 mmol/L (22-30); Chloride 101 mmol/L (98-107); Glucose 80 mg/dL (74-99); Non-African American GFR(CKD) 90 (>60 ml/min/1.73 sqM); Potassium 4.2 mmol/L (3.5-5.1); Sodium 134 mmol/L (137-145)
[2019-06-18 06:30] LABS: Glucose,Whole Blood 97 mg/dL (75-99)
[2019-06-18] MEDS: INSULIN ASPART (NovoLOG) 100 UNIT/ML VIAL SQ SCH ×2 (06:30→12:42)
[2019-06-18] MEDS: INSULN ASP PRT/INSULIN ASPART 100 UNIT/ML 10 ML VIAL SQ SCH ×2 (06:30→12:42)
[2019-06-18] MEDS: PRAMIPEXOLE 1 MG TAB PO SCH ×2 (06:35→12:04)
[2019-06-18] MEDS: metFORMIN 500 MG TAB PO SCH (06:35)
[2019-06-18] MEDS: ALBUTEROL NEBULIZED 2.5 MG/3 ML INHALATION SCH ×2 (08:28→12:00)
[2019-06-18] MEDS: SYMBICORT 160-4.5 MCG INHALER INHALATION SCH (08:28)
[2019-06-18 08:50] VITALS: RESP 20
[2019-06-18] MEDS ORDERED: FUROSEMIDE 40 MG TAB PO SCH (09:00)
[2019-06-18] MEDS: predniSONE 5 MG TAB PO SCH (09:10)
[2019-06-18] MEDS: ASPIRIN 325 MG TAB PO SCH (09:10)
[2019-06-18] MEDS: CHOLECALCIFEROL 1,000 UNIT TAB PO SCH (09:10)
[2019-06-18] MEDS: METOPROLOL SUCCINATE (ER) 25 MG TAB.ER.24H PO SCH (09:10)
[2019-06-18 11:52] VITALS: BP 108/47; TEMP 98.8
[2019-06-18 12:04] VITALS: PULSE 88
[2019-06-18] MEDS: LISINOPRIL 5 MG TAB PO SCH (12:05)
--- NOTE | 2019-06-18 12:09 | P.DS ---
Providers Date of admission: 06/15/19 10:04 Expected date of discharge: 06/18/19 Attending physician: Ronan Webster Consults: 06/15/19 15:37 Consult Physician Routine Consulting Provider: Pablo Alvarado Consult Reason/Comments: Sarcoidosis Do you want consulting provider notified?: Yes 06/17/19 10:44 Consult Physician Routine Consulting Provider: Cece Griffin Consult Reason/Comments: leg weakness/ MRI spine results Do you want consulting provider notified?: Yes Primary care physician: [facility] Course: Chief Complaint: Shortness of breath History of presenting complaint: This is a pleasant 74-year-old patient of Dr. Abel. Chronic stable medical conditions include asthma, coronary artery disease, , stroke, diabetes, GERD, h yperlipidemia, hypertension, hypothyroid, sarcoidosis, tracheobronchomalacia, Sjogren syndrome, chronic inflammation demyelinating polyneuropathy/ transfers myelitis, nephrolithiasis, osteoporosis, sciatica, restless leg syndrome, anemia, diabetes, hypertension, hyperlipidemia, hypothyroid, , CHF with diastolic dysfunction noted aortic stenosis and chronic lower extremity cellulitis. Patient last night became increasingly short of breath cough congested chest. Not able to bring up any sputum. Had some chills. No fever decreased appetite and rundown. Decided to come in. Patient has outpatient was seen by Dr. Grace from neurology. he left me a message that on the MRI done in April was a question about some cord compression. Patient apparently has followed up with Dr. Faye.-Neurosurgeon. Patient did inform me that she did have cervical spine surgery by Dr. Faye. Admitted with bilateral pneumonitis, acute asthma exacerbation, acute on chronic congestive heart failure exacerbation. Responded well to bronchodilators, IV Lasix, steroids. Seen by physical therapy. Seen by Dr. Griffin from orthopedic spine. He reviewed the MRI of the spine. Patient is to follow-up with Dr. Faye. Probable options are somewhat limited. This was discussed with the patient. She is already gotten in touch with Dr. Faye-for follow-up Today-breathing much improved. No new issues. Consultation: Dr. Alvarado from pulmonary Dr. Griffin from orthopedic spine Physical examination: VITAL SIGNS: 98.8, 93, 20, 108/47, 94% on room air GENERAL: BMI 41.1, sitting up in a chair, comfortable EYES: Pupils equal. Conjunctiva normal. HEENT: External appearance of nose and ears normal, oral cavity grossly normal. NECK: JVD not raised; masses not palpable. HEART: First and second heart sounds are normal; minimal edema. LUNGS: Respiratory rate increased, improved air entry ABDOMEN: Soft, nontender, liver spleen not palpable, no masses palpable. PSYCH: Alert and oriented x3; mood and affect slightly anxious NEUROLOGICAL: Cranial nerves grossly intact; no facial asymmetry, power and sensation grossly intact. Patient is not hyperreflexic MUSCULOSKELETAL: Evidence of OA DERMATOLOGICAL: Chronic Bilateral lower extremity redness below the knee to the ankles INVESTIGATIONS, reviewed in the clinical context:: Potassium 4.2 bun 33 creatinine 0.62 Previous testing White count 5.2 hemoglobin 12.4 platelets 74 potassium 4.9 bun 34 creatinine 0.56 Lactic acid 2.2 proBNP 684 Troponin I 0.055 lactic acid 2.2 Chest x-ray film personally reviewed by me-bilateral diffuse infiltrates EKG tracing personally reviewed by me-normal sinus rhythm, poor R-wave progression Influenza type A and type B both negative Assessment: -Possibly viral pneumonitis., POA -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 -Chronic lower extremity cellulitis -Troponin leak from hemodynamic mismatch. Not acute coronary syndrome -Possible mild spinal cord compression as per Dr. Grace as per review of MRI of the spine. Patient to follow-up with Dr. Faye Plan: [facility] Patient Condition at Discharge: Stable Plan - Discharge Summary New Discharge Prescriptions: Continue Cholecalciferol [Vitamin D3 (25 Mcg = 1000 Iu)] 5,000 unit PO DAILY Aspirin 81 mg PO DAILY predniSONE 5 mg PO DAILY Metoprolol Succinate [Toprol XL] 25 mg PO DAILY Alendronate Sodium [Fosamax] 70 mg PO CURRY Budesonide-Formot 160-4.5 Mcg [Symbicort 160-4.5 Mcg Inhaler] 2 puff INHALATION RT-BID puff Cetirizine HCl [Zyrtec] 10 mg PO HS Multivitamin/Iron/Folic Acid [Centrum Adults Tablet] 1 tab PO DAILY Pramipexole Di-HCl [Mirapex] 1.5 mg PO AC-BID@0700,1200 metFORMIN HCL 1,000 mg PO BID Spironolactone [Aldactone] 50 mg PO DAILY PRN PRN Reason: Edema Magnesium Citrate 1,000 mg PO HS Albuterol Sulfate [Ventolin HFA] 2 puff INHALATION RT-QID PRN PRN Reason: Shortness Of Breath Insuln Asp Prt/Insulin Aspart [NovoLOG MIX 70-30 VIAL] 22 unit SQ AC-BID #1 vial Insuln Asp Prt/Insulin Aspart [NovoLOG MIX 70-30 VIAL] 10 unit SQ AC-LUNCH #1 vial Lisinopril [Zestril] 5 mg PO DAILY #30 tab Gabapentin [Neurontin] 300 mg PO HS #3 cap Changed Furosemide [Lasix] 40 mg PO BID #0 Discontinued Cefuroxime Axetil [Ceftin] 500 mg PO BID 3 Days #6 tab No Action Ipratropium-Albuterol Nebulize [Duoneb 0.5 mg-3 mg/3 ml Soln] 3 ml INHALATION RT-QID PRN PRN Reason: Shortness Of Breath Discharge Medication List Aspirin 81 mg PO DAILY 06/24/15 [History] Cholecalciferol [Vitamin D3 (25 Mcg = 1000 Iu)] 5,000 unit PO DAILY 06/24/15 [History] predniSONE 5 mg PO DAILY 10/18/16 [History] Metoprolol Succinate [Toprol XL] 25 mg PO DAILY 02/10/17 [History] Alendronate Sodium [Fosamax] 70 mg PO CURRY 06/14/17 [History] Budesonide-Formot 160-4.5 Mcg [Symbicort 160-4.5 Mcg Inhaler] 2 puff INHALATION RT-BID puff 08/05/17 [Rx] Cetirizine HCl [Zyrtec] 10 mg PO HS 10/08/17 [History] Magnesium Citrate 1,000 mg PO HS 04/09/19 [History] Multivitamin/Iron/Folic Acid [Centrum Adults Tablet] 1 tab PO DAILY 04/09/19 [History] Pramipexole Di-HCl [Mirapex] 1.5 mg PO AC-BID@0700,1200 04/09/19 [History] Spironolactone [Aldactone] 50 mg PO DAILY PRN 04/09/19 [History] metFORMIN HCL 1,000 mg PO BID 04/09/19 [History] Albuterol Sulfate [Ventolin HFA] 2 puff INHALATION RT-QID PRN 05/27/19 [History] Ipratropium-Albuterol Nebulize [Duoneb 0.5 mg-3 mg/3 ml Soln] 3 ml INHALATION RT-QID PRN 05/27/19 [History] Insuln Asp Prt/Insulin Aspart [NovoLOG MIX 70-30 VIAL] 10 unit SQ AC-LUNCH #1 vial 05/31/19 [Rx] Insuln Asp Prt/Insulin Aspart [NovoLOG MIX 70-30 VIAL] 22 unit SQ AC-BID #1 vial 05/31/19 [Rx] Lisinopril [Zestril] 5 mg PO DAILY #30 tab 05/31/19 [Rx] Furosemide [Lasix] 40 mg PO BID #0 06/18/19 [Rx] Gabapentin [Neurontin] 300 mg PO HS #3 cap 06/18/19 [Rx] Follow up Appointment(s)/Referral(s): Javier Faye MD [STAFF PHYSICIAN] - 2 Weeks Harry Abel DO [Primary Care Provider] - 1-2 days Activity/Diet/Wound Care/Special Instructions: [facility]
[2019-06-18 12:27] LABS: Glucose,Whole Blood 181 mg/dL (75-99)
== END 2019-06-18 15:33 | disposition home or self-care (01) | DRG 291 ==
LOC: EC 07:55 → 3SCARD 10:04
PROVIDERS: ADMIT Hospitalist; ATTEND Hospitalist
DX: I11.0 Hypertensive heart disease with heart failure (principal); J12.9 Viral pneumonia, unspecified; I40.0 Infective myocarditis; J84.9 Interstitial pulmonary disease, unspecified; J45.41 Moderate persistent asthma with (acute) exacerbation; Z68.41 Body mass index [BMI] 40.0-44.9, adult; E87.2 Acidosis; L03.119 Cellulitis of unspecified part of limb; J44.0 Chronic obstructive pulmonary disease with (acute) lower respiratory infection; G95.29 Other cord compression; I50.33 Acute on chronic diastolic (congestive) heart failure; I25.10 Atherosclerotic heart disease of native coronary artery without angina pectoris; D86.0 Sarcoidosis of lung; D64.9 Anemia, unspecified; E03.9 Hypothyroidism, unspecified; E11.42 Type 2 diabetes mellitus with diabetic polyneuropathy; E11.65 Type 2 diabetes mellitus with hyperglycemia; E66.9 Obesity, unspecified; J98.4 Other disorders of lung; M47.816 Spondylosis without myelopathy or radiculopathy, lumbar region; M81.0 Age-related osteoporosis without current pathological fracture; M54.30 Sciatica, unspecified side; E78.5 Hyperlipidemia, unspecified; G25.81 Restless legs syndrome; I08.3 Combined rheumatic disorders of mitral, aortic and tricuspid valves; K21.9 Gastro-esophageal reflux disease without esophagitis; M35.00 Sjogren syndrome, unspecified; M19.91 Primary osteoarthritis, unspecified site; K75.81 Nonalcoholic steatohepatitis (NASH); N20.0 Calculus of kidney; K57.30 Diverticulosis of large intestine without perforation or abscess without bleeding; F32.9 Major depressive disorder, single episode, unspecified; R29.6 Repeated falls; H91.90 Unspecified hearing loss, unspecified ear; Z79.51 Long term (current) use of inhaled steroids; I25.2 Old myocardial infarction; Z79.4 Long term (current) use of insulin; Z79.82 Long term (current) use of aspirin; Z79.83 Long term (current) use of bisphosphonates; Z79.899 Other long term (current) drug therapy; Z80.0 Family history of malignant neoplasm of digestive organs; Z80.3 Family history of malignant neoplasm of breast; Z86.73 Personal history of transient ischemic attack (TIA), and cerebral infarction without residual deficits; Z87.442 Personal history of urinary calculi; Z98.1 Arthrodesis status; Z90.49 Acquired absence of other specified parts of digestive tract; Z98.890 Other specified postprocedural states; Z98.51 Tubal ligation status; Z98.49 Cataract extraction status, unspecified eye; Z88.1 Allergy status to other antibiotic agents; Z88.2 Allergy status to sulfonamides; Z88.8 Allergy status to other drugs, medicaments and biological substances
CPT/HCPCS: 36415; 71046; 80048; 80053; 83605; 83735; 83880; 84484; 85025; 87502; 93005; 94640; 94760; 96374; 99291

== ENCOUNTER 2019-07-12 00:17 | Inpatient (IN) | payer MEDICARE, OTHER ==
[2019-07-12] MEDS ORDERED: NALOXONE 0.4 MG/ML 1 ML VIAL IV STA (00:27)
[2019-07-12] MEDS ORDERED: SODIUM CHLORIDE 0.9% 2,000 ML IV ONE (00:27)
--- NOTE | 2019-07-12 00:35 | ED ---
Altered Mental Status HPI - General Stated Complaint: Neuro Deficits Time Seen by Provider: 07/12/19 00:20 - History of Present Illness Initial Comments: Esme is a 74yo female with extensive past medical history and multiple frequent hospitalizations most recently for congestive heart failure pulmonary edema. Patient is brought to the ER today for evaluation of altered mental status. History is provided by the daughter via telephone. Daughter reports that her mother has been doing well at home for approximately 3 weeks after standing [facility]. She has occupational therapy, physical therapy and home nursing that visit regularly. For the past 3 days she has had what they thought was a cold with some URI symptoms and just not feeling well. Daughter reports she had dinner with her mom between 6:30 and 7 PM and left the house. When she was ge tting ready to go to bed she called her mom to make sure she was doing okay and her mom to answer which time she decided to go check on her and found that she was sitting on the floor and was minimally responsive. 911 was called. Patient was confused believed it was 1936 didn't know who the president was was not appropriately following commands and there is some concern that she had facial droop she was brought to the ER priority 1 for possible stroke. In route to the hospital patient was noted to be tachycardic with heart rates in the 140s but stable blood pressure and was reported to be afebrile. - Related Data Home Medications Medication Instructions Recorded Confirmed Aspirin 81 mg PO DAILY 06/24/15 06/15/19 Cholecalciferol [Vitamin D3 (25 5,000 unit PO DAILY 06/24/15 06/15/19 Mcg = 1000 Iu)] predniSONE 5 mg PO DAILY 10/18/16 06/15/19 Metoprolol Succinate [Toprol XL] 25 mg PO DAILY 02/10/17 06/15/19 Alendronate Sodium [Fosamax] 70 mg PO CURRY 06/14/17 06/15/19 Cetirizine HCl [Zyrtec] 10 mg PO HS 10/08/17 06/15/19 Magnesium Citrate 1,000 mg PO HS 04/09/19 06/15/19 Multivitamin/Iron/Folic Acid 1 tab PO DAILY 04/09/19 06/15/19 [Centrum Adults Tablet] Pramipexole Di-HCl [Mirapex] 1.5 mg PO AC-BID@0700,1200 04/09/19 06/15/19 Spironolactone [Aldactone] 50 mg PO DAILY PRN 04/09/19 06/15/19 metFORMIN HCL 1,000 mg PO BID 04/09/19 06/15/19 Albuterol Sulfate [Ventolin HFA] 2 puff INHALATION RT-QID PRN 05/27/19 06/15/19 Ipratropium-Albuterol Nebulize 3 ml INHALATION RT-QID PRN 05/27/19 06/15/19 [Duoneb 0.5 mg-3 mg/3 ml Soln] Previous Rx's Medication Instructions Recorded Budesonide-Formot 160-4.5 Mcg 2 puff INHALATION RT-BID puff 08/05/17 [Symbicort 160-4.5 Mcg Inhaler] Insuln Asp Prt/Insulin Aspart 10 unit SQ AC-LUNCH #1 vial 05/31/19 [NovoLOG MIX 70-30 VIAL] Insuln Asp Prt/Insulin Aspart 22 unit SQ AC-BID #1 vial 05/31/19 [NovoLOG MIX 70-30 VIAL] Lisinopril [Zestril] 5 mg PO DAILY #30 tab 05/31/19 Furosemide [Lasix] 40 mg PO BID #0 06/18/19 Gabapentin [Neurontin] 300 mg PO HS #3 cap 06/18/19 Allergies Allergy/AdvReac Type Severity Reaction Status Date / Time erythromycin base Allergy Unknown Rash/Hives Verified 07/12/19 00:40 [Erythromycin Base] metoclopramide HCl Allergy Unknown Rash/Hives Verified 07/12/19 00:40 [From Reglan] Sulfa (Sulfonamide Allergy Unknown Rash/Hives Verified 07/12/19 00:40 Antibiotics) Review of Systems ROS Statement: Those systems with pertinent positive or pertinent negative responses have been documented in the HPI. ROS Other: All systems not noted in ROS Statement are negative. 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 CELLULITIS LLE. aortic valve pb. Chronic back problems. 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 Last Myocardial Infarction Date:: unknown History of Any Multi-Drug Resistant Organisms: None Reported Past Surgical History: Back Surgery, Cholecystectomy, Heart Catheterization, Tubal Ligation Additional Past Surgical History / Comment(s): Bronchoscopies, cystoscopy , laminectomy total of 16 back sx including implanted pain stimulator, liver biopsy, cataract surgery , liver bx 2008 had ercp /stent in liver, skin ca removed. jonah carpal tunnel done ,heel spurs rt heel . thyroid bx(nodule) RING FINGER RIGHT HAND RIGHT. Colonoscopy 2008(2nd), disc fusion Past Anesthesia/Blood Transfusion Reactions: Motion Sickness Additional Past Anesthesia/Blood Transfusion Reaction / Comment(s): Claustrophobia. No history of blood transfusions. Patient was adopted, No know family HX. Past Psychological History: Anxiety, Depression Smoking Status: Never smoker Past Alcohol Use History: None Reported Past Drug Use History: None Reported - Past Family History Father History Unknown: Yes Additional Family Medical History / Comment(s): was adopted Mother History Unknown: Yes Family Medical History: Cancer Additional Family Medical History / Comment(s): GRANDFATHER HAD COLON CA. An aunt had breast cancer. General Exam - General Exam Comments Initial Comments: Physical Exam GENERAL: Chronically ill-appearing unwell very dehydrated elderly female HENT: Normocephalic, Atraumatic. Dry mucous membranes Mouth and tongue is so dry resulting in difficulty with speech EYES: PERRL, EOMI PULMONARY: Crackles bilaterally CARDIOVASCULAR: Tachycardic, cold hands and feet palpable radial pulses Delayed cap refill Signs of venous stasis in bilateral lower extremities ABDOMEN: Soft and nontender with normal bowel sounds. Bruising on abdomen per daughter this is due to recurrent falls SKIN: Bruising on abdomen Chronic venous stasis and legs Concern for skin breakdown and yeast infection in the intertriginous regions and under the pannus : Normal external genitalia NEUROLOGIC: Oriented to self, able to identify she is at a hospital, initially was confused about year but was eventually able to state that it was however cannot name the president Follows commands Moving all extremities MUSCULOSKELETAL: Generalized weakness PSYCHIATRIC: Unable to assess secondary to confusion Course Vital Signs 07/12/19 07/12/19 07/12/19 00:21 00:36 00:53 Temperature 101.6 F H 103.0 F H 102.9 F H Pulse Rate 136 H 141 H 138 H Respiratory 14 24 36 H Rate Blood Pressure 83/31 109/79 102/40 O2 Sat by Pulse 100 100 95 Oximetry 07/12/19 07/12/19 07/12/19 01:06 01:15 01:33 Temperature 102.9 F H 102.2 F H 101.1 F H Pulse Rate 138 H 142 H 144 H Respiratory 40 H 24 18 Rate Blood Pressure 85/34 92/47 114/49 O2 Sat by Pulse 98 98 99 Oximetry 07/12/19 07/12/19 01:39 02:15 Temperature 102.6 F H 102.5 F H Pulse Rate 142 H 125 H Respiratory 26 H 24 Rate Blood Pressure 111/45 73/41 O2 Sat by Pulse 100 98 Oximetry Procedures - [place] Protocol (Time Out) Procedure Performed:: Intubation, central line Performing Provider: Corinne Hernandez INDUSTRIAL CHEMISTRY TEACHER: Tsering Blanc Nurse: Randy Yi Timeout Date: 07/12/19 Timeout Time: 02:17 Patient Identification (2 identifiers required): Chart, Arm Band, Medical Record Number Patient/Legal Director [employer] has Confirmed: Identity, Procedure, Consent Site: endotracheal intubation, right femoral central line Site Marked: No Final Confirmation: Confirmed w/Provider - Central Line Placement Right Femoral Consent Obtained: emergent situation Patient Placed on Monitor/Pulse Ox: Yes MD Prep: gloves Central Line Prep: Chlorhexidine scrub Ultrasound Used for Placement: Yes Central Line Lumen Inserted: triple Bloods Obtained for Lab: No Central Line Position: good blood return, all ports aspirated, flushed, capped, sutured in place with 3-0 nylon Dressing Applied: Tegaderm Patient Tolerated Procedure: well, no complications - Intubation Sedative: Etomidate Paralytic: Rocuronium Laryngoscope: fiber optic video scope Size: 4 Assist Device Used: fiber optic device ET Tube Size: 7 ET Tube Uncuffed: No Tube Secured Depth (cm): 24 Tube Secured Location: teeth Tube Placement Confirmation: visualized tube passing through cords, equal breath sounds bilaterally, no breath sounds over epigastrium, confirmation by capnometry Patient Tolerated Procedure: well Intubation Complications: none Medical Decision Making - Medical Decision Making Patient was seen and evaluated immediately upon arrival to the emergency department, patient is noted to have a little bit of left-sided facial droop confusion and difficulty speaking, patient was initially activated as a code stroke and taken straight to CT Upon further assessment as noted the patient is tachycardic, tachypneic, febrile, hypotensive at which time. This workup was initiated and IV fluid resuscitation was ordered due to patient's slurred speech and confusion decision was made to use rectal Tylenol rather than oral Patient care was discussed with neuro interventional Dr. Segal, I advised that after further evaluation I suspect the patient's neurological symptoms are secondary to metabolic derangement or sepsis and not secondary to an acute CVA. He reviewed the images and agrees with this assessment. Despite IV fluids patient remained tachycardic and febrile, decreasing mental status and increased work of breathing. I discussed with the patient the need for intubation and she consented. I then contacted patient's daughter Noris who again stated that she discussed with her mother and she would want to be full code and would consent to intubation or whatever takes to keep her alive. Patient's labs begin to resolve with multiple significant abnormalities including leukocytosis with lymphopenia, lactic acidosis, acute kidney injury, elevated troponin The patient has had no international travel or known contact with sick or coronavirus positive patient's, she has been in contact with multiple health care workers including occupational therapy physical therapy home health care nurse in addition to the general public being her daughters and they're husbands. Patient's labs and physical exam and acute respiratory distress is concerning therefore she will be tested Patient was intubated, she remained hypotensive in decision was made to place a right femoral central line which was placed without difficulty Patient care was discussed with communications tower climber Dr. graciela Blake who agrees with plan for admission, testing for coronavirus, levophed as needed for blood pressure support, propofol for sedation, continued IVF Patient BP improving slightly after intubation - Lab Data Result diagrams: 07/12/19 00:32 07/12/19 00:32 Lab Results 07/12/19 07/12/19 07/12/19 Range/Units 00:32 00:32 00:32 WBC 13.2 H (3.8-10.6) k/uL RBC 4.15 (3.80-5.40) m/uL Hgb 13.0 (11.4-16.0) gm/dL Hct 38.6 (34.0-46.0) % MCV 92.9 D (80.0-100.0) fL MCH 31.3 (25.0-35.0) pg MCHC 33.7 (31.0-37.0) g/dL RDW 13.7 (11.5-15.5) % Plt Count 103 L (150-450) k/uL Neutrophils % 92 % Lymphocytes % 2 % Monocytes % 4 % Eosinophils % 0 % Basophils % 0 % Neutrophils # 12.1 H (1.3-7.7) k/uL Lymphocytes # 0.3 L (1.0-4.8) k/uL Monocytes # 0.6 (0-1.0) k/uL Eosinophils # 0.0 (0-0.7) k/uL Basophils # 0.0 (0-0.2) k/uL PT (9.0-12.0) sec INR (<1.2) APTT (22.0-30.0) sec Sodium 130 L (137-145) mmol/L Potassium 4.6 (3.5-5.1) mmol/L Chloride 96 L (98-107) mmol/L Carbon Dioxide 17 L (22-30) mmol/L Anion Gap 17 mmol/L BUN 39 H (7-17) mg/dL Creatinine 1.44 H (0.52-1.04) mg/dL Est GFR (CKD-EPI)AfAm 42 (>60 ml/min/1.73 sqM) Est GFR (CKD-EPI)NonAf 36 (>60 ml/min/1.73 sqM) Glucose 205 H (74-99) mg/dL POC Glucose (mg/dL) (75-99) mg/dL POC Glu Operating Room Technician ID Plasma Lactic Acid Eddie (0.7-2.0) mmol/L Calcium 8.6 (8.4-10.2) mg/dL Total Bilirubin 1.8 H (0.2-1.3) mg/dL AST 67 H (14-36) U/L ALT 36 H (4-34) U/L Alkaline Phosphatase 115 (38-126) U/L Total Creatine Kinase 544 H (30-135) U/L CK-MB (CK-2) 7.0 H (0.0-2.4) ng/mL CK-MB (CK-2) Rel Index 1.3 Troponin I 0.058 H* (0.000-0.034) ng/mL Total Protein 6.0 L (6.3-8.2) g/dL Albumin 3.0 L (3.5-5.0) g/dL Urine Color Urine Appearance (Clear) Urine pH (5.0-8.0) Ur Specific [place] (1.001-1.035) Urine Protein (Negative) Urine Glucose (UA) (Negative) Urine Ketones (Negative) Urine Blood (Negative) Urine Nitrite (Negative) Urine Bilirubin (Negative) Urine Urobilinogen (<2.0) mg/dL Ur Leukocyte Esterase (Negative) Urine RBC (0-5) /hpf Urine WBC (0-5) /hpf Urine WBC Clumps (None) /hpf Ur Squamous Epith Cells (0-4) /hpf Urine Bacteria (None) /hpf Hyaline Casts (0-2) /lpf WBC Casts (0) /lpf Urine Mucus (None) /hpf Urine Opiates Screen (NotDetected) Ur Oxycodone Screen (NotDetected) Urine Methadone Screen (NotDetected) Ur Propoxyphene Screen (NotDetected) Ur Barbiturates Screen (NotDetected) U Tricyclic Antidepress (NotDetected) Ur Phencyclidine Scrn (NotDetected) Ur Amphetamines Screen (NotDetected) U Methamphetamines Scrn (NotDetected) U Benzodiazepines Scrn (NotDetected) Urine Cocaine Screen (NotDetected) U Marijuana (THC) Screen (NotDetected) Influenza Type A RNA (Not Detectd) Influenza Type B (PCR) (Not Detectd) 07/12/19 07/12/19 07/12/19 Range/Units 00:32 00:32 00:47 WBC (3.8-10.6) k/uL RBC (3.80-5.40) m/uL Hgb (11.4-16.0) gm/dL Hct (34.0-46.0) % MCV (80.0-100.0) fL MCH (25.0-35.0) pg MCHC (31.0-37.0) g/dL RDW (11.5-15.5) % Plt Count (150-450) k/uL Neutrophils % % Lymphocytes % % Monocytes % % Eosinophils % % Basophils % % Neutrophils # (1.3-7.7) k/uL Lymphocytes # (1.0-4.8) k/uL Monocytes # (0-1.0) k/uL Eosinophils # (0-0.7) k/uL Basophils # (0-0.2) k/uL PT 15.6 H (9.0-12.0) sec INR 1.6 H (<1.2) APTT 22.8 (22.0-30.0) sec Sodium (137-145) mmol/L Potassium (3.5-5.1) mmol/L Chloride (98-107) mmol/L Carbon Dioxide (22-30) mmol/L Anion Gap mmol/L BUN (7-17) mg/dL Creatinine (0.52-1.04) mg/dL Est GFR (CKD-EPI)AfAm (>60 ml/min/1.73 sqM) Est GFR (CKD-EPI)NonAf (>60 ml/min/1.73 sqM) Glucose (74-99) mg/dL POC Glucose (mg/dL) (75-99) mg/dL POC Glu Operating Room Technician ID Plasma Lactic Acid Eddie 8.1 H* (0.7-2.0) mmol/L Calcium (8.4-10.2) mg/dL Total Bilirubin (0.2-1.3) mg/dL AST (14-36) U/L ALT (4-34) U/L Alkaline Phosphatase (38-126) U/L Total Creatine Kinase (30-135) U/L CK-MB (CK-2) (0.0-2.4) ng/mL CK-MB (CK-2) Rel Index Troponin I (0.000-0.034) ng/mL Total Protein (6.3-8.2) g/dL Albumin (3.5-5.0) g/dL Urine Color Urine Appearance (Clear) Urine pH (5.0-8.0) Ur Specific [place] (1.001-1.035) Urine Protein (Negative) Urine Glucose (UA) (Negative) Urine Ketones (Negative) Urine Blood (Negative) Urine Nitrite (Negative) Urine Bilirubin (Negative) Urine Urobilinogen (<2.0) mg/dL Ur Leukocyte Esterase (Negative) Urine RBC (0-5) /hpf Urine WBC (0-5) /hpf Urine WBC Clumps (None) /hpf Ur Squamous Epith Cells (0-4) /hpf Urine Bacteria (None) /hpf Hyaline Casts (0-2) /lpf WBC Casts (0) /lpf Urine Mucus (None) /hpf Urine Opiates Screen Not Detected (NotDetected) Ur Oxycodone Screen Not Detected (NotDetected) Urine Methadone Screen Not Detected (NotDetected) Ur Propoxyphene Screen Not Detected (NotDetected) Ur Barbiturates Screen Not Detected (NotDetected) U Tricyclic Antidepress Not Detected (NotDetected) Ur Phencyclidine Scrn Not Detected (NotDetected) Ur Amphetamines Screen Not Detected (NotDetected) U Methamphetamines Scrn Not Detected (NotDetected) U Benzodiazepines Scrn Not Detected (NotDetected) Urine Cocaine Screen Not Detected (NotDetected) U Marijuana (THC) Screen Not Detected (NotDetected) Influenza Type A RNA (Not Detectd) Influenza Type B (PCR) (Not Detectd) 07/12/19 07/12/19 07/12/19 Range/Units 00:47 00:57 01:26 WBC (3.8-10.6) k/uL RBC (3.80-5.40) m/uL Hgb (11.4-16.0) gm/dL Hct (34.0-46.0) % MCV (80.0-100.0) fL MCH (25.0-35.0) pg MCHC (31.0-37.0) g/dL RDW (11.5-15.5) % Plt Count (150-450) k/uL Neutrophils % % Lymphocytes % % Monocytes % % Eosinophils % % Basophils % % Neutrophils # (1.3-7.7) k/uL Lymphocytes # (1.0-4.8) k/uL Monocytes # (0-1.0) k/uL Eosinophils # (0-0.7) k/uL Basophils # (0-0.2) k/uL PT (9.0-12.0) sec INR (<1.2) APTT (22.0-30.0) sec Sodium (137-145) mmol/L Potassium (3.5-5.1) mmol/L Chloride (98-107) mmol/L Carbon Dioxide (22-30) mmol/L Anion Gap mmol/L BUN (7-17) mg/dL Creatinine (0.52-1.04) mg/dL Est GFR (CKD-EPI)AfAm (>60 ml/min/1.73 sqM) Est GFR (CKD-EPI)NonAf (>60 ml/min/1.73 sqM) Glucose (74-99) mg/dL POC Glucose (mg/dL) 197 H (75-99) mg/dL POC Glu Operating Room Technician ID Anastasiia Baptiste Plasma Lactic Acid Eddie (0.7-2.0) mmol/L Calcium (8.4-10.2) mg/dL Total Bilirubin (0.2-1.3) mg/dL AST (14-36) U/L ALT (4-34) U/L Alkaline Phosphatase (38-126) U/L Total Creatine Kinase (30-135) U/L CK-MB (CK-2) (0.0-2.4) ng/mL CK-MB (CK-2) Rel Index Troponin I (0.000-0.034) ng/mL Total Protein (6.3-8.2) g/dL Albumin (3.5-5.0) g/dL Urine Color Dark Brown Urine Appearance Cloudy H (Clear) Urine pH 5.5 (5.0-8.0) Ur Specific [place] 1.023 (1.001-1.035) Urine Protein 1+ H (Negative) Urine Glucose (UA) 3+ H (Negative) Urine Ketones Negative (Negative) Urine Blood Moderate H (Negative) Urine Nitrite Negative (Negative) Urine Bilirubin 1+ H (Negative) Urine Urobilinogen 3.0 (<2.0) mg/dL Ur Leukocyte Esterase Trace H (Negative) Urine RBC 68 H (0-5) /hpf Urine WBC 31 H (0-5) /hpf Urine WBC Clumps Few H (None) /hpf Ur Squamous Epith Cells 1 (0-4) /hpf Urine Bacteria Rare H (None) /hpf Hyaline Casts 49 H (0-2) /lpf WBC Casts 1 (0) /lpf Urine Mucus Rare H (None) /hpf Urine Opiates Screen (NotDetected) Ur Oxycodone Screen (NotDetected) Urine Methadone Screen (NotDetected) Ur Propoxyphene Screen (NotDetected) Ur Barbiturates Screen (NotDetected) U Tricyclic Antidepress (NotDetected) Ur Phencyclidine Scrn (NotDetected) Ur Amphetamines Screen (NotDetected) U Methamphetamines Scrn (NotDetected) U Benzodiazepines Scrn (NotDetected) Urine Cocaine Screen (NotDetected) U Marijuana (THC) Screen (NotDetected) Influenza Type A RNA Not Detected (Not Detectd) Influenza Type B (PCR) Not Detected (Not Detectd) Critical Care Time Critical Care Time: Yes Total Critical Care Time: 60 Critical Care Time: Critical care time was exclusive of separately billable procedures and treating other patients and teaching time. Critical care was necessary to treat or prevent imminent or life-threatening deterioration. Given the critical condition in which the patient arrived, the patient was immediately assessed by myself and the nurse, and cardiac monitoring initiated due to the potential for rapid decompensation of the patient's clinical condition. During the course of the patients stay, I spent a considerable amount of time at the bedside performing serial re-evaluations of the patient's hemodynamic and clinical status because of the recognized potential threat to life or limb in this condition. I then had a chance to review not only all of the available current laboratory and radiographic studies obtained today, but I also reviewed old records available to me at the time. Additionally, any ancillary information available including inside plant supervisor records were reviewed. Sequential vital signs were obtained. Disposition Clinical Impression: Septic shock, High risk for readmission, Tachycardia, Dehydration, UTI (urinary tract infection), Respiratory failure with hypoxia, Altered mental status, BRADY (acute kidney injury), Elevated troponin Disposition: ADMITTED IP TO THIS HOSP Condition: Critical
[2019-07-12] MEDS ORDERED: ACETAMINOPHEN SUPPOSITORY 650 MG SUPP RECTAL STA (00:37)
--- NOTE | 2019-07-12 00:48 | CT ---
EXAMINATION TYPE: CT brain wo con for TPA DATE OF EXAM: 07/12/2019 COMPARISON: 05.16.2019 HISTORY: CODE STROKE CT DLP: 1129.4 mGycm Automated exposure control for dose reduction was used. Mild cerebral atrophy. No mass effect or midline shift. No intracranial hemorrhage. Calvarium intact. There is moderate maxillary and ethmoid sinusitis. There is calcified thickening of the transverse ligament at the skull base. Mild cervical spinal stenosis. Impression: No acute intracranial abnormality. No change.
[2019-07-12 00:55] LABS: Calcium 8.6 mg/dL (8.4-10.2); Potassium 4.6 mmol/L (3.5-5.1); Total Bilirubin 1.8 mg/dL (0.2-1.3)
[2019-07-12 00:57] LABS: Basophils % (A) 0 %; Eosinophils % (A) 0 %; HCT 38.6 % (34.0-46.0); Lymphocytes # (A) 0.3 k/uL (1.0-4.8); Lymphocytes % (A) 2 %; MCH 31.3 pg (25.0-35.0); MCHC 33.7 g/dL (31.0-37.0); Mean Platelet Volume 8.9; Monocytes # (A) 0.6 k/uL (0-1.0); Monocytes % (A) 4 %; Neutrophils # (A) 12.1 k/uL (1.3-7.7); Neutrophils % (A) 92 %; Platelet Count 103 k/uL (150-450); RBC 4.15 m/uL (3.80-5.40); RDW 13.7 % (11.5-15.5); WBC 13.2 k/uL (3.8-10.6)
[2019-07-12 00:58] LABS: INR 1.6 (<1.2); MCV 92.9 fL (80.0-100.0); Partial Thromboplastin Time 22.8 sec (22.0-30.0); Prothrombin Time 15.6 sec (9.0-12.0)
[2019-07-12 01:08] LABS: Glucose,Whole Blood 197 mg/dL (75-99)
--- NOTE | 2019-07-12 01:12 | CT ---
EXAMINATION TYPE: CT angio head neck DATE OF EXAM: 07/12/2019 COMPARISON: HISTORY: code stroke CT DLP: 453.2 mGycm Automated exposure control for dose reduction was used. CONTRAST: Performed with IV Contrast, patient injected with 65 mL of Isovue 370. There are 3D post processed images. There is normal branching pattern of the great vessels on the aortic arch. There is bilateral patenc y of the subclavian, vertebral and carotid arteries. No aneurysm or dissection. Normal anterior, middle and posterior cerebral arteries. No mass effect or displacement. No sign of hemodynamic stenosis. Normal venous sinuses. There is suboptimal contrast density in the carotid arteries and exam limited due to patient size, There is spondylosis lower cervical spine, with 6 mm bony spinal stenosis at C6 and C7. Impression: negative exam. C6-C7 spinal stenosis. there is infiltrates both lung apices new compared to 3.22.20, consistent with inflammatory disease. there is maxillary and ethmoid sinusitis.
[2019-07-12 01:20] LABS: Appearance,Urine Cloudy (Clear); Bacteria,Urine Rare /hpf; Bilirubin,Urine 1+ (Negative); Blood,Urine Moderate (Negative); Color,Urine Dark Brown; Glucose,Urine (UA) 3+ (Negative); Hyaline Casts,Urine 49 /lpf (0-2); Ketones,Urine Negative (Negative); Leukocyte Esterase,Urine Trace (Negative); Mucus,Urine Rare /hpf; Nitrite,Urine Negative (Negative); PH, Urine 5.5 (5.0-8.0); Protein,Urine 1+ (Negative); RBC,Urine 68 /hpf (0-5); Specific Gravity,Urine 1.023 (1.001-1.035); Squamous Epithelial Cell,Urine 1 /hpf (0-4); WBC,Urine 31 /hpf (0-5); White Blood Cell Casts,Urine 1 /lpf (0)
[2019-07-12 01:22] LABS: Amphetamine Screen,Urine Not Detected (NotDetected); Barbiturate Screen,Urine Not Detected (NotDetected); Benzodiazepines Screen,Urine Not Detected (NotDetected); Cocaine Screen,Urine Not Detected (NotDetected); Methadone Screen, Urine Not Detected (NotDetected); Opiate Screen,Urine Not Detected (NotDetected); Oxycodone Screen, Urine Not Detected (NotDetected); Phencyclidine Screen,Urine Not Detected (NotDetected); Tricyclic Antidepressant,Urine Not Detected (NotDetected); Urn Cannabinoid Scrn Not Detected (NotDetected)
[2019-07-12 01:29] LABS: Troponin I 0.058 ng/mL (0.000-0.034)
[2019-07-12] MEDS ORDERED: cefTRIAXone IN SWFI 1,000 MG/10 ML SYRINGE IVP STA (01:35)
[2019-07-12] MEDS ORDERED: LEVOFLOXACIN 750MG-D5W PMX 750 MG in DEXTROSE/WATER 1 150ML.BAG IVPB STA (01:36)
--- NOTE | 2019-07-12 01:36 | XR ---
EXAMINATION TYPE: XR chest 1V DATE OF EXAM: 07/12/2019 COMPARISON: 2.. HISTORY: weakness TECHNIQUE: FINDINGS: Heart is enlarged. There is coarse interstitial infiltrate in both lungs. There is cervical spine fusion surgery. There is very slight blunting of the costophrenic angles improved compared to last exam. IMPRESSION: Interstitial pulmonary infiltrates similar to old exam and could relate to mild heart callie lure. There are probably small pleural effusions.
[2019-07-12 02:49] LABS: Allen Test Performed? Yes
[2019-07-12] MEDS ORDERED: MIDAZOLAM 1 MG/ML 5 ML VIAL IV STA (02:51)
[2019-07-12] MEDS ORDERED: NALOXONE 0.4 MG/ML 1 ML VIAL IV PRN (03:00)
[2019-07-12] MEDS ORDERED: ETOMIDATE 2 MG/ML 10 ML VIAL IVP STA (03:00)
[2019-07-12] MEDS ORDERED: NOREPINEPHRINE 8 MG in SODIUM CHLORIDE 0.9% 250 ML IV SCH (03:00)
[2019-07-12] MEDS ORDERED: ROCURONIUM BROMIDE 10 MG/ML 5 ML VIAL IV STA (03:02)
[2019-07-12] MEDS ORDERED: PROPOFOL 1,000 MG in EMPTY BAG 1 BAG IV ONE (03:04)
[2019-07-12 03:07] LABS: ABG Base Excess -9.8 mmol/L; ABG HCO3 16 mmol/L (21-25); ABG PCO2 29 mmHg (35-45); ABG PH 7.35 (7.35-7.45); ABG PO2 331 mmHg (83-108); ABG TCO2 17 mmol/L (19-24)
[2019-07-12] MEDS: LACTATED RINGERS 1,000 ML IV SCH ×2 (03:30→09:41)
[2019-07-12] MEDS ORDERED: ACETAMINOPHEN IV (For NPO) 1,000 MG in EMPTY BAG 1 BAG IVPB ONE (04:00)
[2019-07-12 04:18] LABS: Glucose,Whole Blood 192 mg/dL (75-99)
--- NOTE | 2019-07-12 04:49 | CT ---
EXAMINATION TYPE: CT chest wo con DATE OF EXAM: 07/12/2019 COMPARISON: 04/12/2016 HISTORY: Possible septic shock CT DLP: 810.2 mGycm Automated exposure control for dose reduction was used. Multiple axial sections were obtained from the thoracic inlet to the diaphragm without contrast. There is endotracheal tube with the tip 1 cm from the hung. There is nasogastric tube in the stomac h. There are numerous calcified hepatic and splenic granulomata. There is right pleural effusion. There is patchy airspace consolidation in the right upper lobe. Ther e is also airspace consolidation and air bronchograms in the posterior basal segment right lower lobe . There is mild infiltrate and atelectasis left posterior lung base. There are peripheral subpleural nodular infiltrates in the left and right lung. These measure up to 1.5 cm. Heart is top normal in si ze. There is no pericardial effusion. There is dense calcification of the mitral annulus. There is co ronary artery calcification. Thoracic aorta shows no aneurysm. There are calcified granulomata at the pulmonary maurisio. There is some spurring in the thoracic spine. I see no bony destructive process. The re is a calcified gallstone. There are calculi seen in the partly visualized right kidney. IMPRESSION: Airspace consolidation in the entire right upper lobe. There is also some patchy airspace consolidati on right and left lower lobe at the posterior lung bases. Mild right pleural effusion. Old granulomatous disease. Endotracheal tube is low and should BE pulled back 2 to 3 cm. Numerous peripheral pulmonary variable sized nodular densities. This raises the possibility of septic emboli. Metastatic disease is also possible. Pulmonary abnormalities mostly new compared to old exam . Renal calculi seen on partly on the right side. Calcified gallstone.
[2019-07-12] MEDS ORDERED: ACETAMINOPHEN TAB 325 MG TAB PO PRN (06:44)
[2019-07-12 07:02] LABS: Glucose,Whole Blood 181 mg/dL (75-99)
[2019-07-12] MEDS ORDERED: PROPOFOL 1,000 MG in EMPTY BAG 1 BAG IV SCH (07:45)
[2019-07-12] MEDS ORDERED: HEPARIN SODIUM,PORCINE 5,000 UNIT/ML 1 ML VIAL SQ SCH (08:00)
[2019-07-12] MEDS ORDERED: PIPERACILLIN-TAZOBACTAM 3.375 GM in SODIUM CHLORIDE 0.9% 100 ML IVPB SCH (08:00)
[2019-07-12] MEDS ORDERED: CHLORHEXIDINE GLUCONATE 15 ML CUP MUCOUS MEM SCH (09:00)
[2019-07-12] MEDS ORDERED: PANTOPRAZOLE 40 MG/10 ML VIAL IV SCH ×2 (09:00→21:00)
[2019-07-12 09:05] LABS: ABG Base Excess -8.7 mmol/L; ABG HCO3 18 mmol/L (21-25); ABG PCO2 39 mmHg (35-45); ABG PH 7.28 (7.35-7.45); ABG PO2 294 mmHg (83-108); ABG TCO2 19 mmol/L (19-24); Allen Test Performed? Yes
[2019-07-12] MEDS: IPRATROPIUM-ALBUTEROL 3 ML NEB INHALATION SCH ×2 (09:07→13:38)
[2019-07-12] MEDS ORDERED: ENOXAPARIN 40 MG/0.4 ML SYRINGE SQ SCH (11:30)
[2019-07-12] MEDS ORDERED: ASPIRIN 81 MG PO SCH (11:30)
[2019-07-12] MEDS ORDERED: metFORMIN 500 MG TAB PO SCH (11:30)
[2019-07-12] MEDS ORDERED: LISINOPRIL 5 MG TAB PO SCH (11:30)
[2019-07-12] MEDS ORDERED: HYDROCORTISONE SUCCINATE 100 MG/2 ML VIAL IV SCH (11:30)
[2019-07-12] MEDS ORDERED: CISATRACURIUM 2 MG/ML 5 ML VIAL IV ONE (11:50)
[2019-07-12] MEDS ORDERED: PRAMIPEXOLE 0.5 MG TAB PO SCH (12:00)
[2019-07-12] MEDS ORDERED: INSULIN ASPART (NovoLOG) 100 UNIT/ML VIAL SQ SCH (12:30)
[2019-07-12 12:46] LABS: Basophils # (A) 0.1 k/uL (0-0.2); Basophils % (A) 0 %; Eosinophils % (A) 0 %; HCT 38.2 % (34.0-46.0); HGB 12.6 gm/dL (11.4-16.0); Lymphocytes # (A) 0.5 k/uL (1.0-4.8); Lymphocytes % (A) 3 %; MCH 31.6 pg (25.0-35.0); MCV 95.6 fL (80.0-100.0); Monocytes # (A) 0.7 k/uL (0-1.0); Monocytes % (A) 4 %; Neutrophils # (A) 14.7 k/uL (1.3-7.7); Neutrophils % (A) 90 %; Platelet Count 109 k/uL (150-450); RBC 3.99 m/uL (3.80-5.40); WBC 16.4 k/uL (3.8-10.6)
[2019-07-12 12:57] LABS: Glucose,Whole Blood 164 mg/dL (75-99)
[2019-07-12 12:58] LABS: ABG Base Excess -11.6 mmol/L; ABG HCO3 17 mmol/L (21-25); ABG Oxygen Saturation 97.1 % (94-97); ABG PCO2 44 mmHg (35-45); ABG PO2 96 mmHg (83-108); ABG TCO2 18 mmol/L (19-24)
[2019-07-12 13:02] LABS: Calcium 7.6 mg/dL (8.4-10.2); Potassium 4.3 mmol/L (3.5-5.1)
[2019-07-12 13:08] LABS: ABG PH 7.19 (7.35-7.45); Allen Test Performed? no
[2019-07-12] MEDS ORDERED: SODIUM CHLORIDE 0.9% 50 ML with VASOPRESSIN 20 UNIT IVPB SCH ×2 (13:45)
[2019-07-12] MEDS ORDERED: VANCOMYCIN IV PER PHARMACY 1 EACH MISC MISCELLANE PRN (13:45)
[2019-07-12] MEDS ORDERED: SODIUM BICARB 8.4% 50 ML SYR (1 MEQ/ML) IV STA (13:46)
[2019-07-12] MEDS ORDERED: SODIUM CHLORIDE 0.9% 1,000 ML IV ONE (13:49)
[2019-07-12 13:56] VITALS: TEMP 100.7
--- NOTE | 2019-07-12 13:58 | P.CNPUL ---
History of Present Illness Consult date: 07/12/19 Reason for consult: other (Septic shock) Chief complaint: Altered mental status History of present illness: This is a 74-year-old female, familiar to my service, patient is known to have history of sarcoidosis, diastolic congestive heart failure, frequent admissions to the hospital recently and her last admission was few weeks ago. Admissions were mostly related to diastolic congestive heart failure and underlying s arcoidosis/interstitial lung disease. Patient was brought in with chief complaint of altered mental status as provided by her daughter over the phone to the ER physician. According to the daughter the patient was recently at the [facility], eventually she was sent home with occupational therapy, physical therapy, and home nursing. For the last 3 days, patient has been complaining of cough, cold-like symptoms, not feeling well. Daughter came in to check on her mother, and she was found sitting on the floor with minimal responsiveness. 911 was called, and she was brought in as a priority 1 for possible stroke. On her way to the hospital, patient was noted to be tachycardic, heart rate in the range of 140, but her blood pressure was normal. Upon presentation to the ER, patient was intubated by the ER physician, a right femoral triple-lumen catheter was placed, patient was given fluid boluses, and she was placed on norepinephrine drip. When I saw the patient in the ICU, she was hypotensive in spite of fluid boluses and in spite of norepinephrine. Recommended that the patient receives more Solu-Cortef, she is known to have history of a deal insufficiency and chronic use of steroids for her underlying sarcoidosis. 100 mg of Solu-Cortef were given. Patient remained hypotensive in spite of fluids and norepinephrine. There was also evidence of coffee-ground material coming out through the nasogastric tube and the nares bilaterally. Patient already had a central line in place, went ahead and placed a left femoral arterial line. Family was approached since the patient wasn't doing too well, and CODE STATUS was changed to DO NOT RESUSCITATE. And I just found out that the patient had positive blood cultures for gram-positive cocci, in clusters and I recommended Vancomycin to be added to her present antibiotics regimen, and a loading dose to be given now. Repeat ABG after the femoral line was placed showed a pO2 of 96, pCO2 of 44 pH of 7.19 hence I recommended sodium bicarb to be given and the sodium bicarb drip to be started. Lactic acid on admission was 8.1, and her lactic acid now is 6.5. CT of the chest showed patchy airspace consolidation in the right upper lobe consolidation in the posterior segment of the right lower lobe there is infiltrate and atelectasis in the left posterior lung base. And peripheral subpleural nodular infiltrates in the right lung numerous peripheral pulmonary sized nodular densities noted possibility of septic emboli not ent irely ruled out. Although the patient is known to have history of sarcoidosis. Patient is now on 40 g of norepinephrine, hence I will add vasopressin. CODE STATUS was changed to DO NOT RESUSCITATE CODE STATUS. 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 CELLULITIS LLE. aortic valve pb. Chronic back problems. 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 Last Myocardial Infarction Date:: unknown History of Any Multi-Drug Resistant Organisms: None Reported Past Surgical History: Back Surgery, Cholecystectomy, Heart Catheterization, Tubal Ligation Additional Past Surgical History / Comment(s): Bronchoscopies, cystoscopy , laminectomy total of 16 back sx including implanted pain stimulator, liver biopsy, cataract surgery , liver bx 2008 had ercp /stent in liver, skin ca removed. jonah carpal tunnel done ,heel spurs rt heel . thyroid bx(nodule) RING FINGER RIGHT HAND RIGHT. Colonoscopy 2009(2nd), disc fusion Past Anesthesia/Blood Transfusion Reactions: Motion Sickness Additional Past Anesthesia/Blood Transfusion Reaction / Comment(s): Claustrophobia. No history of blood transfusions. Patient was adopted, No know family HX. Past Psychological History: Anxiety, Depression Smoking Status: Never smoker Past Alcohol Use History: None Reported Past Drug Use History: None Reported - Past Family History Father History Unknown: Yes Additional Family Medical History / Comment(s): was adopted Mother History Unknown: Yes Family Medical History: Cancer Additional Family Medical History / Comment(s): GRANDFATHER HAD COLON CA. An aunt had breast cancer. Medications and Allergies Home Medications Medication Instructions Recorded Confirmed Type Aspirin 81 mg PO DAILY 06/24/15 07/12/19 History predniSONE 5 mg PO DAILY 10/18/16 07/12/19 History Metoprolol Succinate [Toprol XL] 25 mg PO DAILY 02/10/17 07/12/19 History Alendronate Sodium [Fosamax] 70 mg PO CURRY 06/14/17 07/12/19 History Budesonide-Formot 160-4.5 Mcg 2 puff INHALATION RT-BID puff 08/05/17 07/12/19 Rx [Symbicort 160-4.5 Mcg Inhaler] Cetirizine HCl [Zyrtec] 10 mg PO HS 10/08/17 07/12/19 History Magnesium Citrate 1,000 mg PO HS 04/09/19 07/12/19 History Multivitamin/Iron/Folic Acid 1 tab PO DAILY 04/09/19 07/12/19 History [Centrum Adults Tablet] Pramipexole Di-HCl [Mirapex] 1.5 mg PO AC-BID@0700,1200 04/09/19 07/12/19 History Spironolactone [Aldactone] 50 mg PO DAILY PRN 04/09/19 07/12/19 History metFORMIN HCL 1,000 mg PO BID 04/09/19 07/12/19 History Albuterol Sulfate [Ventolin HFA] 2 puff INHALATION RT-QID PRN 05/27/19 07/12/19 History Ipratropium-Albuterol Nebulize 3 ml INHALATION RT-QID PRN 05/27/19 07/12/19 History [Duoneb 0.5 mg-3 mg/3 ml Soln] Lisinopril [Zestril] 5 mg PO DAILY #30 tab 05/31/19 07/12/19 Rx Furosemide [Lasix] 40 mg PO BID #0 06/18/19 07/12/19 Rx Gabapentin [Neurontin] 300 mg PO HS #3 cap 06/18/19 07/12/19 Rx Cholecalciferol (Vitamin D3) 5,000 unit PO DAILY 07/12/19 07/12/19 History [Vitamin D3] Insuln Asp Prt/Insulin Aspart 10 unit SQ AC-LUNCH@1200 07/12/19 07/12/19 History [NovoLOG MIX 70-30 VIAL] Insuln Asp Prt/Insulin Aspart 22 unit SQ AC-BID@0700,1800 07/12/19 07/12/19 History [NovoLOG MIX 70-30 VIAL] Allergies Allergy/AdvReac Type Severity Reaction Status Date / Time erythromycin base Allergy Unknown Rash/Hives Verified 07/12/19 10:43 [Erythromycin Base] metoclopramide HCl Allergy Unknown Rash/Hives Verified 07/12/19 10:43 [From Reglan] Sulfa (Sulfonamide Allergy Unknown Rash/Hives Verified 07/12/19 10:43 Antibiotics) Physical Exam Vitals: Vital Signs Temp Pulse Resp BP Pulse Ox 07/12/19 10:45 128 H 25 H 78/38 97 07/12/19 10:30 116 H 23 92/38 100 07/12/19 10:15 121 H 23 86/45 100 07/12/19 10:00 117 H 22 86/32 100 07/12/19 09:22 110 H 07/12/19 09:15 117 H 16 88/41 100 07/12/19 09:08 113 H 07/12/19 09:00 100.5 F H 120 H 21 88/41 100 07/12/19 08:45 116 H 22 92/53 100 07/12/19 08:30 113 H 21 90/35 100 07/12/19 08:15 112 H 12 89/46 100 07/12/19 07:00 123 H 20 101/48 95 07/12/19 06:00 128 H 22 116/46 95 07/12/19 05:00 130 H 20 117/61 96 07/12/19 04:30 101.1 F H 130 H 21 116/47 97 07/12/19 03:49 99.7 F H 124 H 18 116/60 100 07/12/19 03:15 101.6 F H 130 H 18 110/56 100 07/12/19 02:45 102.2 F H 132 H 16 90/45 100 07/12/19 02:15 102.5 F H 125 H 24 73/41 98 07/12/19 01:39 102.6 F H 142 H 26 H 111/45 100 07/12/19 01:33 101.1 F H 144 H 18 114/49 99 07/12/19 01:15 102.2 F H 142 H 24 92/47 98 07/12/19 01:06 102.9 F H 138 H 40 H 85/34 98 07/12/19 00:53 102.9 F H 138 H 36 H 102/40 95 07/12/19 00:36 103.0 F H 141 H 24 109/79 100 07/12/19 00:21 101.6 F H 136 H 14 83/31 100 Intake and Output 07/11/19 07/12/19 07/12/19 22:59 06:59 14:59 Intake Total 406.131 708.453 Output Total 435 135 Balance -28.869 573.453 Intake: IV 490 Lactated Ringers 1,000 ml 390 @ 130 mls/hr IV .Q7H42M AICHA Rx#:[id number] Piperacillin-Tazobactam 3 100 .375 gm In Sodium Chloride 0.9% 100 ml @ 25 mls/hr IVPB Q8HR AICHA Rx# :[id number] Intake, IV Titration 406.131 218.453 Amount Lactated Ringers 1,000 ml 390 130 @ 130 mls/hr IV .Q7H42M AICHA Rx#:[id number] Norepinephrine 8 mg In 16.131 78.051 Sodium Chloride 0.9% 250 ml @ 0.05 MCG/KG/MIN 8. 387 mls/hr IV .Q24H AICHA Rx#:[id number] Propofol 1,000 mg In 10.402 Empty Bag 1 bag @ Titrate IV .Q0M AICHA Rx#: [id number] Output: Urine 435 135 Straight 325 Other: Voiding Method Indwelling Catheter Weight 86.682 kg Physical Exam: Revealed 74-year-old female unresponsive, on propofol, Head: Atraumatic, normocephalic. Patient is cushingoid. Endotracheal tube and orogastric tubes are intact. Dark blood noted in the nasogastric tube. HEENT:[Neck is supple.] [No neck masses.] [No thyromegaly.] [No JVD.] Chest: [Symmetrical chest expansion, crackles and rhonchi bilaterally. Cardiac Exam: Distant S1 and S2, no S3 gallop, 2/6 systolic murmur throughout the precordium. Abdomen: Morbidly obese, soft, nontender, no megaly, no rebound, no guarding.] Extremities: [No clubbing, trace of bipedal edema, no cyanosis. Central line noted in the right groin, and arterial line noted in the left groin Neurological Exam: Cannot be assessed, patient is on propofol fully sedated. Psychiatric: Cannot be assessed. Lymphatics: No lymphadenopathy. Results - Laboratory Findings CBC and BMP: 07/12/19 12:32 07/12/19 12:32 ABG ABG pH 7.19 (7.35-7.45) L* 07/12/19 12:55 ABG pCO2 44 mmHg (35-45) 07/12/19 12:55 ABG pO2 96 mmHg (83-108) 07/12/19 12:55 ABG O2 Saturation 97.1 % (94-97) H 07/12/19 12:55 PT/INR, D-dimer PT 15.6 sec (9.0-12.0) H 07/12/19 00:32 INR 1.6 (<1.2) H 07/12/19 00:32 Abnormal lab findings: Abnormal Labs 07/12/19 07/12/19 07/12/19 00:32 00:32 00:32 WBC 13.2 H Plt Count 103 L Neutrophils # 12.1 H Lymphocytes # 0.3 L PT INR ABG pH ABG pCO2 ABG pO2 ABG HCO3 ABG Total CO2 ABG O2 Saturation Sodium 130 L Chloride 96 L Carbon Dioxide 17 L BUN 39 H Creatinine 1.44 H Glucose 205 H POC Glucose (mg/dL) Plasma Lactic Acid Eddie Calcium Total Bilirubin 1.8 H AST 67 H ALT 36 H Total Creatine Kinase 544 H CK-MB (CK-2) 7.0 H Troponin I 0.058 H* Total Protein 6.0 L Albumin 3.0 L Urine Appearance Urine Protein Urine Glucose (UA) Urine Blood Urine Bilirubin Ur Leukocyte Esterase Urine RBC Urine WBC Urine WBC Clumps Urine Bacteria Hyaline Casts Urine Mucus 07/12/19 07/12/19 07/12/19 00:32 00:32 00:47 WBC Plt Count Neutrophils # Lymphocytes # PT 15.6 H INR 1.6 H ABG pH ABG pCO2 ABG pO2 ABG HCO3 ABG Total CO2 ABG O2 Saturation Sodium Chloride Carbon Dioxide BUN Creatinine Glucose POC Glucose (mg/dL) Plasma Lactic Acid Eddie 8.1 H* Calcium Total Bilirubin AST ALT Total Creatine Kinase CK-MB (CK-2) Troponin I Total Protein Albumin Urine Appearance Cloudy H Urine Protein 1+ H Urine Glucose (UA) 3+ H Urine Blood Moderate H Urine Bilirubin 1+ H Ur Leukocyte Esterase Trace H Urine RBC 68 H Urine WBC 31 H Urine WBC Clumps Few H Urine Bacteria Rare H Hyaline Casts 49 H Urine Mucus Rare H 07/12/19 07/12/19 07/12/19 00:57 03:05 04:17 WBC Plt Count Neutrophils # Lymphocytes # PT INR ABG pH ABG pCO2 29 L ABG pO2 331 H ABG HCO3 16 L ABG Total CO2 17 L ABG O2 Saturation 100.0 H Sodium Chloride Carbon Dioxide BUN Creatinine Glucose POC Glucose (mg/dL) 197 H 192 H Plasma Lactic Acid Eddie Calcium Total Bilirubin AST ALT Total Creatine Kinase CK-MB (CK-2) Troponin I Total Protein Albumin Urine Appearance Urine Protein Urine Glucose (UA) Urine Blood Urine Bilirubin Ur Leukocyte Esterase Urine RBC Urine WBC Urine WBC Clumps Urine Bacteria Hyaline Casts Urine Mucus 07/12/19 07/12/19 07/12/19 04:34 06:50 08:35 WBC Plt Count Neutrophils # Lymphocytes # PT INR ABG pH ABG pCO2 ABG pO2 ABG HCO3 ABG Total CO2 ABG O2 Saturation Sodium Chloride Carbon Dioxide BUN Creatinine Glucose POC Glucose (mg/dL) 181 H Plasma Lactic Acid Eddie 6.8 H* 5.4 H* Calcium Total Bilirubin AST ALT Total Creatine Kinase CK-MB (CK-2) Troponin I Total Protein Albumin Urine Appearance Urine Protein Urine Glucose (UA) Urine Blood Urine Bilirubin Ur Leukocyte Esterase Urine RBC Urine WBC Urine WBC Clumps Urine Bacteria Hyaline Casts Urine Mucus 07/12/19 07/12/19 07/12/19 09:03 12:24 12:24 WBC Plt Count Neutrophils # Lymphocytes # PT INR ABG pH 7.28 L ABG pCO2 ABG pO2 294 H ABG HCO3 18 L ABG Total CO2 ABG O2 Saturation 100.0 H Sodium Chloride Carbon Dioxide BUN Creatinine Glucose POC Glucose (mg/dL) 164 H Plasma Lactic Acid Eddie 6.5 H* Calcium Total Bilirubin AST ALT Total Creatine Kinase CK-MB (CK-2) Troponin I Total Protein Albumin Urine Appearance Urine Protein Urine Glucose (UA) Urine Blood Urine Bilirubin Ur Leukocyte Esterase Urine RBC Urine WBC Urine WBC Clumps Urine Bacteria Hyaline Casts Urine Mucus 07/12/19 07/12/19 07/12/19 12:32 12:32 12:55 WBC 16.4 H Plt Count 109 L Neutrophils # 14.7 H Lymphocytes # 0.5 L PT INR ABG pH 7.19 L* ABG pCO2 ABG pO2 ABG HCO3 17 L ABG Total CO2 18 L ABG O2 Saturation 97.1 H Sodium 132 L Chloride Carbon Dioxide 17 L BUN 39 H Creatinine 1.59 H Glucose 161 H POC Glucose (mg/dL) Plasma Lactic Acid Eddie Calcium 7.6 L Total Bilirubin AST ALT Total Creatine Kinase CK-MB (CK-2) Troponin I Total Protein Albumin Urine Appearance Urine Protein Urine Glucose (UA) Urine Blood Urine Bilirubin Ur Leukocyte Esterase Urine RBC Urine WBC Urine WBC Clumps Urine Bacteria Hyaline Casts Urine Mucus - Diagnostic Findings Chest x-ray: image reviewed CT scan - chest: image reviewed (As noted in HPI.) Additional studies: CT of the brain showed no acute intracranial abnormality. There is moderate maxillary and ethmoid sinusitis. Assessment and Plan Assessment: Impression: Acute hypoxic respiratory failure secondary to septic shock, extensive pneumonia, and gram-positive bacteremia. Acute bacteremia secondary to gram-positive cocci in clusters, likely MRSA. Acute right upper lobe and right middle lobe pneumonia, likely MRSA unless proven otherwise or could be Streptococcus pneumonia. Considering the positive blood cultures. History of pulmonary sarcoidosis. History of adrenal insufficiency History of type 2 diabetes. History of tracheobronchomalacia. History of demyelinating polyneuropathy and myelitis. This was felt to be related to sarcoid. History of osteoporosis. History of hypertension. Dyslipidemia. Hypothyroidism. Chronic diastolic congestive heart failure. Chronic aortic stenosis. History of severe persistent asthma Suspect upper GI bleeding, acute possible erosive gastritis or stress ulcer. Recommendation: Continue ventilatory support. Antibiotics, make sure to add vancomycin. Hemodynamic support/pressors Stress doses of Solu-Cortef. Started on Protonix. Insulin for sugar control. Continue to monitor daily electrolytes. And renal profile. Monitor CBC and transfuse blood if needed. Daughter was updated on her condition, and CODE STATUS is DO NOT RESUSCITATE which is appropriate. May have to consider comfort care measures if the patient doesn't make much improvement in the next 24 hours. Patient is extremely ill, prognosis is very poor. We'll continue to follow. Time with Patient: Greater than 30
[2019-07-12] MEDS ORDERED: ENOXAPARIN 30 MG/0.3 ML SYRINGE SQ SCH (14:00)
[2019-07-12] MEDS ORDERED: DEXTROSE 5% IN WATER 1,000 ML with SODIUM BICARB (1 MEQ/ML) 150 ML IV SCH (14:00)
[2019-07-12] MEDS ORDERED: VANCOMYCIN 1,500 MG in SODIUM CHLORIDE 0.9% 250 ML IVPB SCH (14:00)
[2019-07-12] MEDS ORDERED: SODIUM CHLORIDE 0.9% 1,000 ML IV SCH (14:00)
[2019-07-12] MEDS ORDERED: MORPHINE SULFATE 4 MG/ML SYRINGE IV PRN (14:37)
[2019-07-12] MEDS ORDERED: ATROPINE OPHTH SOLN 1% 5ML BTL SUBLINGUAL PRN (14:37)
[2019-07-12] MEDS ORDERED: MORPHINE SULFATE (100 MG/2 ML) 100 MG in SODIUM CHLORIDE 0.9% 100 ML IV SCH (14:45)
[2019-07-12 14:50] VITALS: BP 105/43; PULSE 165; RESP 28
--- NOTE | 2019-07-12 16:17 | P.HPIM ---
History of Present Illness H&P Date: 07/12/19 Chief Complaint: Confused History of presenting complaint: This is a pleasant 74-year-old patient of Dr. Abel. 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 . Patient was here in the hospital from June 15 through June 18. Admitted with bilateral pneumonia, asthma exacerbation, CHF exacerbation. Also supposed to follow up with Dr. Faye for possible chronic spinal cord compression. History is obtained by the daughter and ER.. Patient just moved into assisted living called [facility]. For last 34 days she's been having what was described as having a cold. She was still up to the bathroom eating well. When the daughter went to check on her yesterday she was very lethargic on the floor. Patient is brought to the ER. Found to be septic with high fever and tachycardia.. Started on antibiotics. Patient was into respiratory failure had been intubated. Patient had dark blood coming out of the NG tube. Dr. Rendon from critical care saw the patient. Patient drips include propofol, Levophed. Review of systems-patient intubated Past medical history to include: Coronary artery disease, stroke, diabetes mellitus type 2, GERD hyperlipidemia, hypertension, Ary arthritis, PR, hypothyroid, sarcoidosis, tracheobronchomalacia, Sjogren syndrome, TAMIKA/transfers myelitis, nonalcoholic steatohepatitis, nephrolithiasis, osteoporosis, restless leg syndrome, anemia, diverticulosis, diabetes mellitus type II, hypertension, hyperlipidemia, hypothyroid, restless leg syndrome, CHF with diastolic dysfunction, moderate degree to aortic stenosis, possible spinal cord compression Social history: Recently , does not smoke or drink alcohol. Does have a walker and a cane. Just moved into assisted [facility] Family history: patient is adopted Physical examination: VITAL SIGNS: 101.1, 130, 21, 116/47, medicine present on the ventilator GENERAL: BMI 33.9, laying in bed, intubated EYES: Pupils equal. Conjunctiva normal. HEENT: External appearance of nose and ears normal, oral cavity dry with OG tube NECK: JVD unable to assess; masses not palpable. HEART: First and second heart sounds are normal; minimal edema. LUNGS: Respiratory rate increased, decreased breath sounds ABDOMEN: Soft, nontender, liver spleen not palpable, no masses palpable. PSYCH: Patient sedated NEUROLOGICAL: Pupils are equal; no facial asymmetry, LYMPHATICS: No lymph nodes palpable in the axilla and neck MUSCULOSKELETAL: Evidence of OA INVESTIGATIONS, reviewed in the clinical context:: White count 13.2 hemoglobin 13 platelets 103 potassium 4.6 bun 39 crit 1.44 Lactic acid 8.1 troponin I 0.058 Urine drug screen negative influenza type A and diabetic both negative Computed tomography scan of the brain-negative Chest x-ray film personally reviewed by me-bilateral infiltrates EKG tracing personally reviewed by me-sinus tachycardia with some ST segment changes CT chest-clear space consolidation right upper lobe. 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 Grace as per review of MRI of the spine. Patient to follow-up with Dr. Faye Plan: Patient in the ICU. Intubated. On levo fed and propofol drip. IV fluids. OG tube with bloody aspirate. On the ventilator with FiO2 50 and PEEP of 5. Also getting antibiotics. Prognosis poor. Discussed with Dr. Rendon from pulmonary. Advanced care planning: Care was discussed with patient's daughter in the ICU. She understands patient's poor prognosis. She did express that patient and her want to suffer. Questions answered. Did explain what we are doing. Daughter did say that she discussed with the sister. If there is no improvement she decreased that to proceed with hospice comfort care depending how patient responds. She again understands the patient to another poorly. About 20-25 minutes was spent on this.. Past Medical History Past Medical History: Asthma, Coronary Artery Disease (CAD), Cancer, Heart Failure, COPD, CVA/TIA, Diabetes Mellitus, GERD/Reflux, Hearing Disorder / Deafness, Hyperlipidemia, Hypertension, Liver Disease, Myocardial Infarction (PR), Osteoarthritis (OA), Pneumonia, Respiratory Disorder, Skin Disorder, Thyroid Disorder Additional Past Medical History / Comment(s): Sarcoidosis, sjogrens syndrome, 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, non- alcoholic steatohepatitis - HAS STENT, nephrolithiasis, osteoporosis,scia soraida,RLS anemia,hx of TIA 2,thyroid nodule, diverticulosis, skin CA, tracheobronchomalacia, restless leg syndrome, moderate degree of aortic stenosis. CELLULITIS LLE. aortic valve pb. Chronic back problems. 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 Last Myocardial Infarction Date:: unknown History of Any Multi-Drug Resistant Organisms: None Reported Past Surgical History: Back Surgery, Cholecystectomy, Heart Catheterization, Tubal Ligation Additional Past Surgical History / Comment(s): Bronchoscopies, cystoscopy , laminectomy total of 16 back sx including implanted pain stimulator, liver biopsy, cataract surgery , liver bx 2008 had ercp /stent in liver, skin ca removed. jonah carpal tunnel done ,heel spurs rt heel . thyroid bx(nodule) RING FINGER RIGHT HAND RIGHT. Colonoscopy 2008(2nd), disc fusion Past Anesthesia/Blood Transfusion Reactions: Motion Sickness Additional Past Anesthesia/Blood Transfusion Reaction / Comment(s): Claustrophobia. No history of blood transfusions. Patient was adopted, No know family HX. Past Psychological History: Anxiety, Depression Smoking Status: Never smoker Past Alcohol Use History: None Reported Past Drug Use History: None Reported - Past Family History Father History Unknown: Yes Additional Family Medical History / Comment(s): was adopted Mother History Unknown: Yes Family Medical History: Cancer Additional Family Medical History / Comment(s): GRANDFATHER HAD COLON CA. An aunt had breast cancer. Medications and Allergies Home Medications Medication Instructions Recorded Confirmed Type Aspirin 81 mg PO DAILY 06/24/15 07/12/19 History predniSONE 5 mg PO DAILY 10/18/16 07/12/19 History Metoprolol Succinate [Toprol XL] 25 mg PO DAILY 02/10/17 07/12/19 History Alendronate Sodium [Fosamax] 70 mg PO CURRY 06/14/17 07/12/19 History Budesonide-Formot 160-4.5 Mcg 2 puff INHALATION RT-BID puff 08/05/17 07/12/19 Rx [Symbicort 160-4.5 Mcg Inhaler] Cetirizine HCl [Zyrtec] 10 mg PO HS 10/08/17 07/12/19 History Magnesium Citrate 1,000 mg PO HS 04/09/19 07/12/19 History Multivitamin/Iron/Folic Acid 1 tab PO DAILY 04/09/19 07/12/19 History [Centrum Adults Tablet] Pramipexole Di-HCl [Mirapex] 1.5 mg PO AC-BID@0700,1200 04/09/19 07/12/19 History Spironolactone [Aldactone] 50 mg PO DAILY PRN 04/09/19 07/12/19 History metFORMIN HCL 1,000 mg PO BID 04/09/19 07/12/19 History Albuterol Sulfate [Ventolin HFA] 2 puff INHALATION RT-QID PRN 05/27/19 07/12/19 History Ipratropium-Albuterol Nebulize 3 ml INHALATION RT-QID PRN 05/27/19 07/12/19 History [Duoneb 0.5 mg-3 mg/3 ml Soln] Lisinopril [Zestril] 5 mg PO DAILY #30 tab 05/31/19 07/12/19 Rx Furosemide [Lasix] 40 mg PO BID #0 06/18/19 07/12/19 Rx Gabapentin [Neurontin] 300 mg PO HS #3 cap 06/18/19 07/12/19 Rx Cholecalciferol (Vitamin D3) 5,000 unit PO DAILY 07/12/19 07/12/19 History [Vitamin D3] Insuln Asp Prt/Insulin Aspart 10 unit SQ AC-LUNCH@1200 07/12/19 07/12/19 History [NovoLOG MIX 70-30 VIAL] Insuln Asp Prt/Insulin Aspart 22 unit SQ AC-BID@0700,1800 07/12/19 07/12/19 History [NovoLOG MIX 70-30 VIAL] Allergies Allergy/AdvReac Type Severity Reaction Status Date / Time erythromycin base Allergy Unknown Rash/Hives Verified 07/12/19 10:43 [Erythromycin Base] metoclopramide HCl Allergy Unknown Rash/Hives Verified 07/12/19 10:43 [From Reglan] Sulfa (Sulfonamide Allergy Unknown Rash/Hives Verified 07/12/19 10:43 Antibiotics) Physical Exam Vitals: Vital Signs Temp Pulse Resp BP Pulse Ox 07/12/19 13:45 131 H 26 H 100/39 96 07/12/19 13:30 133 H 26 H 100/38 96 07/12/19 13:15 122 H 21 103/39 96 07/12/19 13:00 122 H 20 97/40 96 07/12/19 12:45 125 H 20 102/50 96 07/12/19 12:30 121 H 20 102/39 95 07/12/19 12:15 122 H 6 L 108/41 93 L 07/12/19 12:00 100.7 F H 110 H 12 99/34 93 L 07/12/19 11:45 142 H 26 H 72/39 98 07/12/19 11:30 114 H 25 H 86/52 98 07/12/19 11:15 122 H 24 62/50 98 07/12/19 11:00 120 H 24 77/36 97 07/12/19 10:45 128 H 25 H 78/38 97 07/12/19 10:30 116 H 23 92/38 100 07/12/19 10:15 121 H 23 86/45 100 07/12/19 10:00 117 H 22 86/32 100 07/12/19 09:22 110 H 07/12/19 09:15 117 H 16 88/41 100 07/12/19 09:08 113 H 07/12/19 09:00 100.5 F H 120 H 21 88/41 100 07/12/19 08:45 116 H 22 92/53 100 07/12/19 08:30 113 H 21 90/35 100 07/12/19 08:15 112 H 12 89/46 100 07/12/19 07:00 123 H 20 101/48 95 07/12/19 06:00 128 H 22 116/46 95 07/12/19 05:00 130 H 20 117/61 96 07/12/19 04:30 101.1 F H 130 H 21 116/47 97 07/12/19 03:49 99.7 F H 124 H 18 116/60 100 07/12/19 03:15 101.6 F H 130 H 18 110/56 100 07/12/19 02:45 102.2 F H 132 H 16 90/45 100 07/12/19 02:15 102.5 F H 125 H 24 73/41 98 07/12/19 01:39 102.6 F H 142 H 26 H 111/45 100 07/12/19 01:33 101.1 F H 144 H 18 114/49 99 07/12/19 01:15 102.2 F H 142 H 24 92/47 98 07/12/19 01:06 102.9 F H 138 H 40 H 85/34 98 07/12/19 00:53 102.9 F H 138 H 36 H 102/40 95 07/12/19 00:36 103.0 F H 141 H 24 109/79 100 07/12/19 00:21 101.6 F H 136 H 14 83/31 100 Intake and Output 07/11/19 07/12/19 07/12/19 22:59 06:59 14:59 Intake Total 686.839 9911.804 Output Total 435 180 Balance -28.869 1808.804 Intake: IV 1750 Lactated Ringers 1,000 ml 1650 @ 130 mls/hr IV .Q7H42M AICHA Rx#:[id number] Piperacillin-Tazobactam 3 100 .375 gm In Sodium Chloride 0.9% 100 ml @ 25 mls/hr IVPB Q8HR AICHA Rx# :[id number] Intake, IV Titration 406.131 238.804 Amount Lactated Ringers 1,000 ml 390 130 @ 130 mls/hr IV .Q7H42M AICHA Rx#:[id number] Norepinephrine 8 mg In 16.131 98.402 Sodium Chloride 0.9% 250 ml @ 0.05 MCG/KG/MIN 8. 387 mls/hr IV .Q24H AICHA Rx#:[id number] Propofol 1,000 mg In 10.402 Empty Bag 1 bag @ Titrate IV .Q0M AICHA Rx#: [id number] Output: Urine 435 180 Straight 325 Other: Voiding Method Indwelling Catheter Weight 86.682 kg ABP, PAP, CO, CI - Last 8 Hours Arterial Blood Pressure 80/36 Arterial Blood Pressure 90/39 Arterial Blood Pressure 72/35 Arterial Blood Pressure 92/38 Arterial Blood Pressure 86/36 Arterial Blood Pressure 87/37 Arterial Blood Pressure 90/35 Results CBC & Chem 7: 07/12/19 12:32 07/12/19 12:32 Labs: Abnormal Lab Results - Last 24 Hours (Table) 07/12/19 07/12/19 07/12/19 Range/Units 00:32 00:32 00:32 WBC 13.2 H (3.8-10.6) k/uL Plt Count 103 L (150-450) k/uL Neutrophils # 12.1 H (1.3-7.7) k/uL Lymphocytes # 0.3 L (1.0-4.8) k/uL PT (9.0-12.0) sec INR (<1.2) ABG pH (7.35-7.45) ABG pCO2 (35-45) mmHg ABG pO2 (83-108) mmHg ABG HCO3 (21-25) mmol/L ABG Total CO2 (19-24) mmol/L ABG O2 Saturation (94-97) % Sodium 130 L (137-145) mmol/L Chloride 96 L (98-107) mmol/L Carbon Dioxide 17 L (22-30) mmol/L BUN 39 H (7-17) mg/dL Creatinine 1.44 H (0.52-1.04) mg/dL Glucose 205 H (74-99) mg/dL POC Glucose (mg/dL) (75-99) mg/dL Plasma Lactic Acid Eddie (0.7-2.0) mmol/L Calcium (8.4-10.2) mg/dL Total Bilirubin 1.8 H (0.2-1.3) mg/dL AST 67 H (14-36) U/L ALT 36 H (4-34) U/L Total Creatine Kinase 544 H (30-135) U/L CK-MB (CK-2) 7.0 H (0.0-2.4) ng/mL Troponin I 0.058 H* (0.000-0.034) ng/mL Total Protein 6.0 L (6.3-8.2) g/dL Albumin 3.0 L (3.5-5.0) g/dL Urine Appearance (Clear) Urine Protein (Negative) Urine Glucose (UA) (Negative) Urine Blood (Negative) Urine Bilirubin (Negative) Ur Leukocyte Esterase (Negative) Urine RBC (0-5) /hpf Urine WBC (0-5) /hpf Urine WBC Clumps (None) /hpf Urine Bacteria (None) /hpf Hyaline Casts (0-2) /lpf Urine Mucus (None) /hpf 07/12/19 07/12/19 07/12/19 Range/Units 00:32 00:32 00:47 WBC (3.8-10.6) k/uL Plt Count (150-450) k/uL Neutrophils # (1.3-7.7) k/uL Lymphocytes # (1.0-4.8) k/uL PT 15.6 H (9.0-12.0) sec INR 1.6 H (<1.2) ABG pH (7.35-7.45) ABG pCO2 (35-45) mmHg ABG pO2 (83-108) mmHg ABG HCO3 (21-25) mmol/L ABG Total CO2 (19-24) mmol/L ABG O2 Saturation (94-97) % Sodium (137-145) mmol/L Chloride (98-107) mmol/L Carbon Dioxide (22-30) mmol/L BUN (7-17) mg/dL Creatinine (0.52-1.04) mg/dL Glucose (74-99) mg/dL POC Glucose (mg/dL) (75-99) mg/dL Plasma Lactic Acid Eddie 8.1 H* (0.7-2.0) mmol/L Calcium (8.4-10.2) mg/dL Total Bilirubin (0.2-1.3) mg/dL AST (14-36) U/L ALT (4-34) U/L Total Creatine Kinase (30-135) U/L CK-MB (CK-2) (0.0-2.4) ng/mL Troponin I (0.000-0.034) ng/mL Total Protein (6.3-8.2) g/dL Albumin (3.5-5.0) g/dL Urine Appearance Cloudy H (Clear) Urine Protein 1+ H (Negative) Urine Glucose (UA) 3+ H (Negative) Urine Blood Moderate H (Negative) Urine Bilirubin 1+ H (Negative) Ur Leukocyte Esterase Trace H (Negative) Urine RBC 68 H (0-5) /hpf Urine WBC 31 H (0-5) /hpf Urine WBC Clumps Few H (None) /hpf Urine Bacteria Rare H (None) /hpf Hyaline Casts 49 H (0-2) /lpf Urine Mucus Rare H (None) /hpf 07/12/19 07/12/19 07/12/19 Range/Units 00:57 03:05 04:17 WBC (3.8-10.6) k/uL Plt Count (150-450) k/uL Neutrophils # (1.3-7.7) k/uL Lymphocytes # (1.0-4.8) k/uL PT (9.0-12.0) sec INR (<1.2) ABG pH (7.35-7.45) ABG pCO2 29 L (35-45) mmHg ABG pO2 331 H (83-108) mmHg ABG HCO3 16 L (21-25) mmol/L ABG Total CO2 17 L (19-24) mmol/L ABG O2 Saturation 100.0 H (94-97) % Sodium (137-145) mmol/L Chloride (98-107) mmol/L Carbon Dioxide (22-30) mmol/L BUN (7-17) mg/dL Creatinine (0.52-1.04) mg/dL Glucose (74-99) mg/dL POC Glucose (mg/dL) 197 H 192 H (75-99) mg/dL Plasma Lactic Acid Eddie (0.7-2.0) mmol/L Calcium (8.4-10.2) mg/dL Total Bilirubin (0.2-1.3) mg/dL AST (14-36) U/L ALT (4-34) U/L Total Creatine Kinase (30-135) U/L CK-MB (CK-2) (0.0-2.4) ng/mL Troponin I (0.000-0.034) ng/mL Total Protein (6.3-8.2) g/dL Albumin (3.5-5.0) g/dL Urine Appearance (Clear) Urine Protein (Negative) Urine Glucose (UA) (Negative) Urine Blood (Negative) Urine Bilirubin (Negative) Ur Leukocyte Esterase (Negative) Urine RBC (0-5) /hpf Urine WBC (0-5) /hpf Urine WBC Clumps (None) /hpf Urine Bacteria (None) /hpf Hyaline Casts (0-2) /lpf Urine Mucus (None) /hpf 07/12/19 07/12/19 07/12/19 Range/Units 04:34 06:50 08:35 WBC (3.8-10.6) k/uL Plt Count (150-450) k/uL Neutrophils # (1.3-7.7) k/uL Lymphocytes # (1.0-4.8) k/uL PT (9.0-12.0) sec INR (<1.2) ABG pH (7.35-7.45) ABG pCO2 (35-45) mmHg ABG pO2 (83-108) mmHg ABG HCO3 (21-25) mmol/L ABG Total CO2 (19-24) mmol/L ABG O2 Saturation (94-97) % Sodium (137-145) mmol/L Chloride (98-107) mmol/L Carbon Dioxide (22-30) mmol/L BUN (7-17) mg/dL Creatinine (0.52-1.04) mg/dL Glucose (74-99) mg/dL POC Glucose (mg/dL) 181 H (75-99) mg/dL Plasma Lactic Acid Eddie 6.8 H* 5.4 H* (0.7-2.0) mmol/L Calcium (8.4-10.2) mg/dL Total Bilirubin (0.2-1.3) mg/dL AST (14-36) U/L ALT (4-34) U/L Total Creatine Kinase (30-135) U/L CK-MB (CK-2) (0.0-2.4) ng/mL Troponin I (0.000-0.034) ng/mL Total Protein (6.3-8.2) g/dL Albumin (3.5-5.0) g/dL Urine Appearance (Clear) Urine Protein (Negative) Urine Glucose (UA) (Negative) Urine Blood (Negative) Urine Bilirubin (Negative) Ur Leukocyte Esterase (Negative) Urine RBC (0-5) /hpf Urine WBC (0-5) /hpf Urine WBC Clumps (None) /hpf Urine Bacteria (None) /hpf Hyaline Casts (0-2) /lpf Urine Mucus (None) /hpf 07/12/19 07/12/19 07/12/19 Range/Units 09:03 12:24 12:24 WBC (3.8-10.6) k/uL Plt Count (150-450) k/uL Neutrophils # (1.3-7.7) k/uL Lymphocytes # (1.0-4.8) k/uL PT (9.0-12.0) sec INR (<1.2) ABG pH 7.28 L (7.35-7.45) ABG pCO2 (35-45) mmHg ABG pO2 294 H (83-108) mmHg ABG HCO3 18 L (21-25) mmol/L ABG Total CO2 (19-24) mmol/L ABG O2 Saturation 100.0 H (94-97) % Sodium (137-145) mmol/L Chloride (98-107) mmol/L Carbon Dioxide (22-30) mmol/L BUN (7-17) mg/dL Creatinine (0.52-1.04) mg/dL Glucose (74-99) mg/dL POC Glucose (mg/dL) 164 H (75-99) mg/dL Plasma Lactic Acid Eddie 6.5 H* (0.7-2.0) mmol/L Calcium (8.4-10.2) mg/dL Total Bilirubin (0.2-1.3) mg/dL AST (14-36) U/L ALT (4-34) U/L Total Creatine Kinase (30-135) U/L CK-MB (CK-2) (0.0-2.4) ng/mL Troponin I (0.000-0.034) ng/mL Total Protein (6.3-8.2) g/dL Albumin (3.5-5.0) g/dL Urine Appearance (Clear) Urine Protein (Negative) Urine Glucose (UA) (Negative) Urine Blood (Negative) Urine Bilirubin (Negative) Ur Leukocyte Esterase (Negative) Urine RBC (0-5) /hpf Urine WBC (0-5) /hpf Urine WBC Clumps (None) /hpf Urine Bacteria (None) /hpf Hyaline Casts (0-2) /lpf Urine Mucus (None) /hpf 07/12/19 07/12/19 07/12/19 Range/Units 12:32 12:32 12:55 WBC 16.4 H (3.8-10.6) k/uL Plt Count 109 L (150-450) k/uL Neutrophils # 14.7 H (1.3-7.7) k/uL Lymphocytes # 0.5 L (1.0-4.8) k/uL PT (9.0-12.0) sec INR (<1.2) ABG pH 7.19 L* (7.35-7.45) ABG pCO2 (35-45) mmHg ABG pO2 (83-108) mmHg ABG HCO3 17 L (21-25) mmol/L ABG Total CO2 18 L (19-24) mmol/L ABG O2 Saturation 97.1 H (94-97) % Sodium 132 L (137-145) mmol/L Chloride (98-107) mmol/L Carbon Dioxide 17 L (22-30) mmol/L BUN 39 H (7-17) mg/dL Creatinine 1.59 H (0.52-1.04) mg/dL Glucose 161 H (74-99) mg/dL POC Glucose (mg/dL) (75-99) mg/dL Plasma Lactic Acid Eddie (0.7-2.0) mmol/L Calcium 7.6 L (8.4-10.2) mg/dL Total Bilirubin (0.2-1.3) mg/dL AST (14-36) U/L ALT (4-34) U/L Total Creatine Kinase (30-135) U/L CK-MB (CK-2) (0.0-2.4) ng/mL Troponin I (0.000-0.034) ng/mL Total Protein (6.3-8.2) g/dL Albumin (3.5-5.0) g/dL Urine Appearance (Clear) Urine Protein (Negative) Urine Glucose (UA) (Negative) Urine Blood (Negative) Urine Bilirubin (Negative) Ur Leukocyte Esterase (Negative) Urine RBC (0-5) /hpf Urine WBC (0-5) /hpf Urine WBC Clumps (None) /hpf Urine Bacteria (None) /hpf Hyaline Casts (0-2) /lpf Urine Mucus (None) /hpf Microbiology - Last 24 Hours (Table) 07/12/19 00:57 Blood Culture - Final Blood 07/12/19 00:47 Urine Culture - Preliminary Urine,Catheterized Thrombosis Risk Factor Assmnt - Choose All That Apply Each Factor Represents 1 point: Abnormal pulmonary function (COPD) Each Risk Factor Represents 2 Points: Age 61-74 years Thrombosis Risk Factor Assessment Total Risk Factor Score: 3 Thrombosis Risk Factor Assessment Level: Moderate Risk
--- NOTE | 2019-07-12 17:47 | PCN ---
PROCEDURE NOTE PROCEDURE PERFORMED: Placement of the left femoral arterial line. PREOPERATIVE DIAGNOSES: 1. Acute septic shock. 2. Pneumonia. POSTOP DIAGNOSES: 1. Acute septic shock. 2. Pneumonia. ANESTHESIA: None deployed. PROCEDURE DETAILS: The patient was placed in the supine position, the left groin was prepared in a sterile fashion and drapes were applied. The left femoral artery was palpated, cannulated, and a guidewire was placed. The femoral catheter was inserted over the guidewire, and the guidewire was removed. Good blood flow and good waveform noted. No evidence of any immediate complications. The line was secured using 3.0 silk sutures. MMODL / IJN: [id number] /
[2019-07-12] MEDS ORDERED: GABAPENTIN 300 MG CAP PO SCH (21:00)
[2019-07-12] MEDS ORDERED: INSULIN DETEMIR (LEVEMIR) 100 UNIT/ML SYR SQ SCH (21:00)
--- NOTE | 2019-07-14 20:39 | P.DS ---
Providers Date of admission: 07/12/19 03:00 Expected date of discharge: 07/12/19 Attending physician: Ronan Webster Consults: 07/12/19 03:00 Consult Physician Stat Consulting Provider: Pablo Alvarado Reason/Comments: ICU Do you want consulting provider notified?: Already Contacted Primary care physician: [facility] Course: Chief Complaint: Confused History of presenting complaint: This is a pleasant 74-year-old patient of Dr. Abel. 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 . Patient was here in the hospital from June 15 through June 18. Admitted with bilateral pneumonia, asthma exacerbation, CHF exacerbation. Also supposed to follow up with Dr. Faye for possible chronic spinal cord compression. History is obtained by the daughter and ER.. Patient just moved into assisted living called [facility]. For last 34 days she's been having what was described as having a cold. She was still up to the bathroom eating well. When the daughter went to check on her yesterday she was very lethargic on the floor. Patient is brought to the ER. Found to be septic with high fever and tachycardia.. Started on antibiotics. Patient was into respiratory failure had been intubated. Patient had dark blood coming out of the NG tube. Dr. Rendon from critical care saw the patient. Patient drips include propofol, Levophed. Patient continued to poorly. Discussed with the daughter. Patient was made DO NOT RESUSCITATE. Patient was then terminally extubated. Patient Consultation: Dr. Rendon from pulmonary INVESTIGATIONS, reviewed in the clinical context:: White count 13.2 hemoglobin 13 platelets 103 potassium 4.6 bun 39 crit 1.44 Lactic acid 8.1 troponin I 0.058 Urine drug screen negative influenza type A and diabetic both negative Computed tomography scan of the brain-negative Chest x-ray film personally reviewed by me-bilateral infiltrates EKG tracing personally reviewed by me-sinus tachycardia with some ST segment changes CT chest-clear space consolidation right upper lobe. Also in the right and left lower lobe., Old granulomatous disease Cause of : -Bilateral multilobar pneumonia suspect gram-negative organism POA Additional medical conditions -Severe sepsis with septic shock due to pneumonia, causing severe lactic acidosis -Acute metabolic/toxic encephalopathy due to sepsis -Interstitial lung disease secondary to sarcoidosis -Chronic congestive heart failure from diastolic dysfunction 65-70% -Coronary artery disease -Moderate persistent Asthma, with acute exacerbation, POA -Diabetes mellitus type 2, chronically on insulin, uncontrolled with hyperglycemia -GERD -Hyperlipidemia -Essential hypertension -Primary osteoarthritis -Sjogren syndrome -Nonalcoholic steatohepatitis -Nephrolithiasis -Restless leg syndrome -Colonic Diverticulosis -Moderate aortic stenosis -Obesity BMI 40.8 -Troponin leak from sepsis -Chronic lower extremity cellulitis -Possible chronic mild spinal cord compression as per Dr. Grace as per review of MRI of the spine. Patient to follow-up with Dr. Faye Disposition: Patient Patient Condition at Discharge: Critical Plan - Discharge Summary Discharge Rx Participant: No New Discharge Prescriptions: No Action Aspirin 81 mg PO DAILY predniSONE 5 mg PO DAILY Metoprolol Succinate [Toprol XL] 25 mg PO DAILY Alendronate Sodium [Fosamax] 70 mg PO CURRY Budesonide-Formot 160-4.5 Mcg [Symbicort 160-4.5 Mcg Inhaler] 2 puff INHALATION RT-BID puff Cetirizine HCl [Zyrtec] 10 mg PO HS Multivitamin/Iron/Folic Acid [Centrum Adults Tablet] 1 tab PO DAILY Pramipexole Di-HCl [Mirapex] 1.5 mg PO AC-BID@0700,1200 metFORMIN HCL 1,000 mg PO BID Spironolactone [Aldactone] 50 mg PO DAILY PRN PRN Reason: Edema Magnesium Citrate 1,000 mg PO HS Albuterol Sulfate [Ventolin HFA] 2 puff INHALATION RT-QID PRN PRN Reason: Shortness Of Breath Ipratropium-Albuterol Nebulize [Duoneb 0.5 mg-3 mg/3 ml Soln] 3 ml INHALATION RT-QID PRN PRN Reason: Shortness Of Breath Lisinopril [Zestril] 5 mg PO DAILY #30 tab Furosemide [Lasix] 40 mg PO BID #0 Gabapentin [Neurontin] 300 mg PO HS #3 cap Cholecalciferol (Vitamin D3) [Vitamin D3] 5,000 unit PO DAILY Insuln Asp Prt/Insulin Aspart [NovoLOG MIX 70-30 VIAL] 22 unit SQ AC- BID@0700,1800 Insuln Asp Prt/Insulin Aspart [NovoLOG MIX 70-30 VIAL] 10 unit SQ AC- LUNCH@1200 Discharge Medication List Aspirin 81 mg PO DAILY 06/24/15 [History] predniSONE 5 mg PO DAILY 10/18/16 [History] Metoprolol Succinate [Toprol XL] 25 mg PO DAILY 02/10/17 [History] Alendronate Sodium [Fosamax] 70 mg PO CURRY 06/14/17 [History] Budesonide-Formot 160-4.5 Mcg [Symbicort 160-4.5 Mcg Inhaler] 2 puff INHALATION RT-BID puff 08/05/17 [Rx] Cetirizine HCl [Zyrtec] 10 mg PO HS 10/08/17 [History] Magnesium Citrate 1,000 mg PO HS 04/09/19 [History] Multivitamin/Iron/Folic Acid [Centrum Adults Tablet] 1 tab PO DAILY 04/09/19 [History] Pramipexole Di-HCl [Mirapex] 1.5 mg PO AC-BID@0700,1200 04/09/19 [History] Spironolactone [Aldactone] 50 mg PO DAILY PRN 04/09/19 [History] metFORMIN HCL 1,000 mg PO BID 04/09/19 [History] Albuterol Sulfate [Ventolin HFA] 2 puff INHALATION RT-QID PRN 05/27/19 [History] Ipratropium-Albuterol Nebulize [Duoneb 0.5 mg-3 mg/3 ml Soln] 3 ml INHALATION RT-QID PRN 05/27/19 [History] Lisinopril [Zestril] 5 mg PO DAILY #30 tab 05/31/19 [Rx] Furosemide [Lasix] 40 mg PO BID #0 06/18/19 [Rx] Gabapentin [Neurontin] 300 mg PO HS #3 cap 06/18/19 [Rx] Cholecalciferol (Vitamin D3) [Vitamin D3] 5,000 unit PO DAILY 07/12/19 [History] Insuln Asp Prt/Insulin Aspart [NovoLOG MIX 70-30 VIAL] 10 unit SQ AC-LUNCH@1200 07/12/19 [History] Insuln Asp Prt/Insulin Aspart [NovoLOG MIX 70-30 VIAL] 22 unit SQ AC- BID@0700,1800 07/12/19 [History] Follow up Appointment(s)/Referral(s): Harry Abel DO [Primary Care Provider] - 1-2 days Discharge Disposition: - Preliminary Cause of Preliminary Cause of : Pneumonia
--- NOTE | 2019-07-15 12:28 | CDI ---
Documentation Clarification Form Date: 07/15/19 From: Chioma Connolly Phone: If you have a question about this query, please contact Pauline Galvez, Cyber Security Analyst at [phone] between 8am and 5pm. Admit Date: 07/12/19 Discharge Date: 07/12/19 Patient Name: RUSH ASTORGA Visit Number: [id number] ATTENTION: The Clinical Documentation Specialists (CDI) and [facility] Coding Staff appreciate your assistance in clarifying documentation. Please respond to the clarification below the line at the bottom and electronically sign. The CDI & [facility] Coding staff will review the response and follow-up if needed. Please note: Queries are made part of the Legal Health Record. If you have any questions, please contact the author of this message via ITS. Dear Dr. Ronan Webster, Patient presented with troponin of: 0.058. EKG: rate 143, rhythm is sinus tach there is leftward axis, normal intervals, PA 136, grossly 4, QTC is [address] elevations or ST depressions laterally likely due to demand ischemia and no obvious infarction (per ED). Patient history/risk factors: sepsis w shock due to gram neg pneumonia, HTN w chronic diastolic CHF, acute hypoxic respiratory failure Treatment: Sepsis treated In your professional opinion, can you please specify the diagnosis, if any, indicated by the above clinical indicators and treatment? Type II AR due to sepsis No AR NSTEMI -Specific Site -Specific Artery STEMI -Specific Site -Specific Artery -Any complications Non Q Wave AR -Specific Site -Specific Artery Other, please specify Unable to determine Troponin leak due to hemodynamic mismatch. No acute AR. MTDD
--- NOTE | 2019-07-20 11:46 | CDI ---
Documentation Clarification Form Date: 07/20/2019 11:19:02 AM From: Treasure Gallego,CCDS,RN Phone: [phone] Admit Date: 07/12/2019 03:00:00 AM Patient Name: Esme Gutierrez Visit Number: [id number] Discharge Date: 07/12/2019 05:15:00 PM ATTENTION: The Clinical Documentation Specialists (CDI) and [facility] Coding Staff appreciate your assistance in clarifying documentation. Please respond to the clarification below the line at the bottom and electronically sign. The CDI & [facility] Coding staff will review the response and follow-up if needed. Please note: Queries are made part of the Legal Health Record. If you have any questions, please contact the author of this message via ITS. Dr. Ronan Webster The diagnosis acute pneumonia likely MRSA unless proven otherwise was documented ICU consultants notes 07/12/2019 in the record, but is not noted in subsequent documentation and as attending physician clarification is requested. History/Risk Factors: 74 year old with multiple medical problems and recent hospitalization as well as resident of assisted living. PMH of Asthma, CAD, DM, GERD, interstitial lung disease 2nd Sarcoidosis, tracheobronchalmalacia ,Sjorgens syndrome, adrenal insufficiency, Diastolic CHF. Clinical Indicators: sepsis and septic shock suspect gram-negative organism POA is noted in 07/11 HP and DS. ICU absence management consultant 07/12/2019: Acute hypoxic respiratory failure secondary to septic shock, extensive pneumonia, and gram-positive bacteremia. Acute bacteremia secondary to gram-positive cocci in clusters, likely MRSA. Acute right upper lobe and right middle lobe pneumonia, likely MRSA unless proven otherwise or could be Streptococcus pneumonia. Considering the positive blood cultures Be sure to add Vancomycin 07/12/2019 chest x-ray airspace consolidation in the entire right upper lobe. There is also some patchy airspace consolidation right and left lower lobe at the posterior lung bases. Mild right pleural effusion. Breath sounds: crackles and rhonchi bilaterally. Blood culture with MRSA Treatment: Vancomycin ordered to abxs of Rocephin & Levaquin 07/12/2019, pt made comfort measures and Please render your opinion on consultants documentation of likely MRSA Pneumonia Present/active this admission Ruled out Other, please specify Clinically unable to determine (Last Query Form Revision: December 2018) MRSA pneumonia MTDD
== END 2019-07-12 17:15 | disposition expired | DRG 871 ==
LOC: EC 00:17 → 2SICU 03:00
PROVIDERS: ADMIT Hospitalist; ATTEND Hospitalist
PROC: 5A1935Z Respiratory Ventilation, Less than 24 Consecutive Hours (ICD-10-PCS; principal; 2019-07-12)
PROC: 06HM33Z Insertion of Infusion Device into Right Femoral Vein, Percutaneous Approach (ICD-10-PCS; principal; 2019-07-12)
PROC: 0BH17EZ Insertion of Endotracheal Airway into Trachea, Via Natural or Artificial Opening (ICD-10-PCS; principal; 2019-07-12)
PROC: 0D9670Z Drainage of Stomach with Drainage Device, Via Natural or Artificial Opening (ICD-10-PCS; 2019-07-12)
PROC: 04HY32Z Insertion of Monitoring Device into Lower Artery, Percutaneous Approach (ICD-10-PCS; 2019-07-12)
PROC: 4A133J1 Monitoring of Arterial Pulse, Peripheral, Percutaneous Approach (ICD-10-PCS; 2019-07-12)
PROC: 4A133B1 Monitoring of Arterial Pressure, Peripheral, Percutaneous Approach (ICD-10-PCS; 2019-07-12)
PROC: 3E043XZ Introduction of Vasopressor into Central Vein, Percutaneous Approach (ICD-10-PCS; 2019-07-12)
DX: A41.50 Gram-negative sepsis, unspecified (principal); R65.21 Severe sepsis with septic shock; J96.01 Acute respiratory failure with hypoxia; J15.6 Pneumonia due to other Gram-negative bacteria; G93.41 Metabolic encephalopathy; G04.89 Other myelitis; J15.212 Pneumonia due to Methicillin resistant Staphylococcus aureus; K29.01 Acute gastritis with bleeding; J44.1 Chronic obstructive pulmonary disease with (acute) exacerbation; J44.0 Chronic obstructive pulmonary disease with (acute) lower respiratory infection; E87.2 Acidosis; N17.9 Acute kidney failure, unspecified; J45.51 Severe persistent asthma with (acute) exacerbation; E27.40 Unspecified adrenocortical insufficiency; G95.29 Other cord compression; I50.32 Chronic diastolic (congestive) heart failure; J98.11 Atelectasis; Z68.41 Body mass index [BMI] 40.0-44.9, adult; L03.119 Cellulitis of unspecified part of limb; Z20.828 Contact with and (suspected) exposure to other viral communicable diseases; E66.01 Morbid (severe) obesity due to excess calories; Z66 Do not resuscitate; Z51.5 Encounter for palliative care; I11.0 Hypertensive heart disease with heart failure; G62.89 Other specified polyneuropathies; J39.8 Other specified diseases of upper respiratory tract; K75.81 Nonalcoholic steatohepatitis (NASH); E86.0 Dehydration; B37.2 Candidiasis of skin and nail; D86.0 Sarcoidosis of lung; M35.00 Sjogren syndrome, unspecified; E11.42 Type 2 diabetes mellitus with diabetic polyneuropathy; E11.65 Type 2 diabetes mellitus with hyperglycemia; R29.810 Facial weakness; R47.81 Slurred speech; R40.2131 Coma scale, eyes open, to sound, in the field [EMT or ambulance]; R40.2241 Coma scale, best verbal response, confused conversation, in the field [EMT or ambulance]; R40.2361 Coma scale, best motor response, obeys commands, in the field [EMT or ambulance]; M19.91 Primary osteoarthritis, unspecified site; N20.0 Calculus of kidney; K57.30 Diverticulosis of large intestine without perforation or abscess without bleeding; E03.9 Hypothyroidism, unspecified; E78.5 Hyperlipidemia, unspecified; I87.8 Other specified disorders of veins; M81.0 Age-related osteoporosis without current pathological fracture; G25.81 Restless legs syndrome; M54.30 Sciatica, unspecified side; I35.0 Nonrheumatic aortic (valve) stenosis; D72.810 Lymphocytopenia; D64.9 Anemia, unspecified; K76.9 Liver disease, unspecified; I25.10 Atherosclerotic heart disease of native coronary artery without angina pectoris; K21.9 Gastro-esophageal reflux disease without esophagitis; I25.2 Old myocardial infarction; H91.90 Unspecified hearing loss, unspecified ear; R79.89 Other specified abnormal findings of blood chemistry; Z79.83 Long term (current) use of bisphosphonates; Z79.51 Long term (current) use of inhaled steroids; Z79.82 Long term (current) use of aspirin; Z79.4 Long term (current) use of insulin; Z79.52 Long term (current) use of systemic steroids; Z79.899 Other long term (current) drug therapy; Z90.49 Acquired absence of other specified parts of digestive tract; Z86.73 Personal history of transient ischemic attack (TIA), and cerebral infarction without residual deficits; Z87.442 Personal history of urinary calculi; Z85.828 Personal history of other malignant neoplasm of skin; Z98.51 Tubal ligation status; Z96.82 Presence of neurostimulator; Z98.1 Arthrodesis status; Z98.890 Other specified postprocedural states; Z98.49 Cataract extraction status, unspecified eye; Z86.59 Personal history of other mental and behavioral disorders; Z88.1 Allergy status to other antibiotic agents; Z88.2 Allergy status to sulfonamides; Z88.8 Allergy status to other drugs, medicaments and biological substances; Z80.0 Family history of malignant neoplasm of digestive organs; Z80.3 Family history of malignant neoplasm of breast
CPT/HCPCS: 31500; 36415; 36556; 36600; 51701; 70450; 70496; 70498; 71045; 71250; 80048; 80053; 80306; 81001; 82550; 82553; 82805; 83605; 84484; 85025; 85610; 85730; 87040; 87077; 87086; 87186; 87502; 93005; 94002; 94640; 96360; 96361; 96365; 96368; 96375; 99291